=== PATIENT | female | born 1945 | race Caucasian/White ===

== ENCOUNTER → 2018-01-06 | Outpatient (CLI) | payer MEDICARE, BC ==
--- NOTE | 2018-01-06 16:24 | NM ---
EXAMINATION TYPE: NM bone scan whole body DATE OF EXAM: 01/06/2018 COMPARISON: Correlation CT 08/14/2017 HISTORY: 72-year-old female disorder of bone and specified, lumbar pain for 4 to 5 years. Osteoarthri tis in both hands and lumbar spine. Previous bilateral hip and knee replacements. TECHNIQUE: Delayed whole-body scanning was performed following the injection of 25.1 mCi Tc 99m MDP. Images acquired 3 hours post injection. FINDINGS: Focal mild uptake at the mid sternum likely degenerative change at the sternomanubrial joint. There i s scattered degenerative change seen in the upper and mid thoracic spine on the posterior views and a lso prominent within the upper lumbar spine and posteriorly at L4-L5. Photopenic defects related to bilateral hip replacements as well as bilateral knee replacements. There is mild uptake about the patient's knee replacements that can be correlated with radiographs to exclude any loosening. Focal intense activity along the right mid to hindfoot. Degenerative tracer activity at the right greater than left shoulder. IMPRESSION: 1. Focal uptake mid sternum likely degenerative activity at the sternomanubrial joint. 2. Additional degenerative activity at the right greater the left shoulder, upper and mid thoracic sp ine, upper lumbar spine, and the L4-L5 facet joints. 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 Note that Baastrup's disease may be a potential source of pain for the patient. 3. Focal intense activity right mid to hindfoot likely degenerative versus posttraumatic. Clinically correlate. 4. Mild uptake around the patient's bilateral knee replacements. This is nonspecific and can be corre lated with radiographs to exclude any signs of loosening.
== END | disposition home or self-care (01) ==
LOC: RADNMMAIN 10:10
PROVIDERS: ATTEND Radiology Radiation Oncology
DX: M47.814 Spondylosis without myelopathy or radiculopathy, thoracic region (principal); M47.816 Spondylosis without myelopathy or radiculopathy, lumbar region; M48.20 Kissing spine, site unspecified; R93.7 Abnormal findings on diagnostic imaging of other parts of musculoskeletal system; Z96.653 Presence of artificial knee joint, bilateral
CPT/HCPCS: 78306; A9503

== ENCOUNTER 2023-01-26 23:58 | Observation (INO) | payer MEDICARE, OTHER ==
--- NOTE | 2023-01-27 00:49 | CT ---
EXAM: CT Head Without Intravenous Contrast CLINICAL HISTORY: ITS.REASON CT Reason: trauma TECHNIQUE: Axial computed tomography images of the head/brain without intravenous contrast. CTDI is 45.285 mGy and DLP is 1079.5 mGy-cm. This CT exam was performed using one or more of the following dose reduction techniques: automated exposure control, adjustment of the mA and/or kV according to patient size, and/or use of iterative reconstruction technique. COMPARISON: CT Head dated 06/29/15 FINDINGS: Brain: Mild volume loss with prominent ventricles and sulci. Mild periventricular and subcortical white matter hypodensity notably in the left centrum semiovale, similar to the prior. Likely reflects chronic small vessel disease. No hemorrhage. Ventricles: See above. Bones/joints: Unremarkable. No acute fracture. Soft tissues: Left parietal scalp swelling and hematoma. Sinuses: Unremarkable as visualized. No acute sinusitis. Mastoid air cells: Unremarkable as visualized. No mastoid effusion. Orbits: Interval bilateral intraocular lens replacement. IMPRESSION: 1. No evidence of acute intracranial abnormality or skull fracture. 2. Left parietal scalp swelling and hematoma. EXAM: CT Cervical Spine Without Intravenous Contrast CLINICAL HISTORY: ITS.REASON CT Reason: trauma TECHNIQUE: Axial computed tomography images of the cervical spine without intravenous contrast. CTDI is 19.285 mGy and DLP is 546.8 mGy-cm. This CT exam was performed using one or more of the following dose reduction techniques: automated exposure control, adjustment of the mA and/or kV according to patient size, and/or use of iterative reconstruction technique. COMPARISON: CT Cervical Spine dated 06/29/15 FINDINGS: Vertebrae: Unremarkable. No acute fracture. Discs/spinal canal/neural foramina: Degenerative changes, similar/mildly progressed. Varying degrees of mild to moderate central canal stenosis. Severe left C4-5 foraminal stenosis. Varying degrees of mild to moderate foraminal stenoses at other levels. Soft tissues: Unremarkable. IMPRESSION: No evidence of acute fracture or malalignment.
--- NOTE | 2023-01-27 02:01 | ED ---
General Adult HPI - General Chief complaint: Fall Stated complaint: Fall Time Seen by Provider: 01/27/23 00:08 Source: patient, family, EMS, RN notes reviewed, old records reviewed Mode of arrival: EMS - History of Present Illness Initial comments: 77-year-old female presents status post fall with occipital head trauma. No loss conscious. No anticoagulation. History is obtained from the patient. Patient does report increased lower extremity weakness which has been progres sive. She has been followed at wound care for chronic lower extremity wounds. No fever. No chest pain. She has had a cough and wheezing for the past 3 weeks. - Related Data Home Medications Medication Instructions Recorded Confirmed No Known Home Medications 06/29/15 06/29/15 Allergies Allergy/AdvReac Type Severity Reaction Status Date / Time No Known Allergies Allergy Verified 01/27/23 00:03 Review of Systems ROS Statement: Those systems with pertinent positive or pertinent negative responses have been documented in the HPI. ROS Other: All systems not noted in ROS Statement are negative. Past Medical History Past Medical History: No Reported History Additional Past Medical History / Comment(s): lower leg edema History of Any Multi-Drug Resistant Organisms: None Reported Past Surgical History: Appendectomy Past Psychological History: No Psychological Hx Reported Smoking Status: Never smoker Past Alcohol Use History: None Reported Past Drug Use History: None Reported General Exam General appearance: alert, in no apparent distress Head exam: Present: normocephalic, other (Occipital hematoma and small abrasion) Eye exam: Present: normal appearance, PERRL ENT exam: Present: normal exam Neck exam: Present: normal inspection. Absent: tenderness, meningismus Respiratory exam: Present: wheezes. Absent: respiratory distress, chest wall tenderness Cardiovascular Exam: Present: regular rate, normal rhythm GI/Abdominal exam: Present: soft. Absent: distended, tenderness, guarding Extremities exam: Present: pedal edema Neurological exam: Present: alert, oriented X3, CN II-XII intact Psychiatric exam: Present: normal affect, normal mood Course Vital Signs 01/27/23 01/27/23 00:00 02:21 Temperature 98 F Pulse Rate 90 86 Respiratory 17 18 Rate Blood Pressure 138/58 114/54 O2 Sat by Pulse 99 97 Oximetry Medical Decision Making - Medical Decision Making Was pt. sent in by a medical professional or institution (, PA, RETAIL SUPERVISOR, urgent care, hospital, or penitentiary...) When possible be specific @ -No Did you speak to anyone other than the patient for history (EMS, parent, family, police, friend...)? What history was obtained from this source @ Patient's daughter and son-in-law, paramedics Did you review nursing and triage notes (agree or disagree)? Why? @ -I reviewed and agree with nursing and triage notes Were old charts reviewed (outside hosp., previous admission, EMS record, old EKG, old radiological studies, urgent care reports/EKG's, penitentiary records)? Report findings @ -No old charts were reviewed Differential Diagnosis (chest pain, altered mental status, abdominal pain women, abdominal pain men, vaginal bleeding, weakness, fever, dyspnea, syncope, headache, dizziness, GI bleed, back pain, seizure, CVA, palpatations, mental health, musculoskeletal)? @ Differential Weakness: Hypoglycemia, shock, sepsis, hyponatremia, anemia, infection, VA, ETOH, adverse medicine reaction, overdose, stroke, this is not meant to be an all-inclusive list. EKG interpreted by me (3pts min.). @ Sinus rhythm, rate of 92, NH interval 185, QRS duration 85, QTC 390 X-rays interpreted by me (1pt min.). @ -Negative for pneumothorax, no focal pneumonia CT interpreted by me (1pt min.). @ CT brain and C-spine, negative for traumatic injury reviewed by myself U/S interpreted by me (1pt. min.). @ -None done What testing was considered but not performed or refused? (CT, X-rays, U/S, labs)? Why? @ -None What meds were considered but not given or refused? Why? @ -None Did you discuss the management of the patient with other professionals (professionals i.e. , PA, RETAIL SUPERVISOR, lab, RT, psych nurse, mental health social worker, salt washer, teacher, information security officer, outpatient case manager)? Give summary @ -Dr. Anderson Was smoking cessation discussed for >3mins.? @ -No Was critical care preformed (if so, how long)? @ -No Were there social determinants of health that impacted care today? How? (Homelessness, low income, unemployed, alcoholism, drug addiction, transportation, low edu. Level, literacy, decrease access to med. care, [facility], rehab)? @ -No Was there de-escalation of care discussed even if they declined (Discuss DNR or withdrawal of care, Hospice)? DNR status @ -No What co-morbidities impacted this encounter? (DM, HTN, Smoking, COPD, CAD, Cancer, CVA, ARF, Chemo, Hep., AIDS, mental health diagnosis, sleep apnea, morbid obesity)? @ -None Was patient admitted / discharged? Hospital course, mention meds given and route, prescriptions, significant lab abnormalities, going to OR and other pertinent info. @ 77-year-old female with increased lower extremity weakness which has been progressive over time she also has had cough and wheezing for the past several weeks. She had a fall with head trauma with no loss consciousness, no antic oagulation, head CT is negative for intracranial hemorrhage or mass effect. Chest x-ray negative for focal pneumonia. She has a leukocytosis at 17.5, hemoglobin of 10.0 with no prior for comparison. Troponin and BNP are negative, viral panel is negative. Given the elevated white blood cell count I do suspect occult pneumonia, will be treated with IV antibiotics. She will be admitted for IV fluids and treatment of pneumonia with bronchospasm. Undiagnosed new problem with uncertain prognosis? @ -No Drug Therapy requiring intensive monitoring for toxicity (Heparin, Nitro, Insulin, Cardizem)? @ -No Were any procedures done? @ -No Diagnosis/symptom? @ Pneumonia, bronchospasm, dehydration Acute, or Chronic, or Acute on Chronic? @ Acute Uncomplicated (without systemic symptoms) or Complicated (systemic symptoms)? @ -Complicated Side effects of treatment? @ -No Exacerbation, Progression, or Severe Exacerbation? @ -No Poses a threat to life or bodily function? How? (Chest pain, USA, VA, pneumonia, PE, COPD, DKA, ARF, appy, cholecystitis, CVA, Diverticulitis, Homicidal, Suicidal, threat to staff... and all critical care pts) @ -Yes, aggressive dyspnea, hypoxia, pneumonia with sepsis - Lab Data Result diagrams: 01/27/23 01:32 01/27/23 01:32 Lab Results 01/27/23 01/27/23 01/27/23 Range/Units 01:32 01:32 01:32 WBC 17.5 H (3.8-10.6) k/uL RBC 3.38 L (3.80-5.40) m/uL Hgb 10.0 L (11.4-16.0) gm/dL Hct 31.3 L (34.0-46.0) % MCV 92.6 (80.0-100.0) fL MCH 29.7 (25.0-35.0) pg MCHC 32.1 (31.0-37.0) g/dL RDW 14.7 (11.5-15.5) % Plt Count 263 (150-450) k/uL MPV 8.0 Neutrophils % 92 % Lymphocytes % 5 % Monocytes % 2 % Eosinophils % 0 % Basophils % 0 % Neutrophils # 16.1 H (1.3-7.7) k/uL Lymphocytes # 0.8 L (1.0-4.8) k/uL Monocytes # 0.3 (0-1.0) k/uL Eosinophils # 0.0 (0-0.7) k/uL Basophils # 0.0 (0-0.2) k/uL Sodium 131 L (137-145) mmol/L Potassium 5.2 H (3.5-5.1) mmol/L Chloride 103 (98-107) mmol/L Carbon Dioxide 21 L (22-30) mmol/L Anion Gap 7 mmol/L BUN 37 H (7-17) mg/dL Creatinine 0.98 (0.52-1.04) mg/dL Est GFR (CKD-EPI)AfAm 64 (>60 ml/min/1.73 sqM) Est GFR (CKD-EPI)NonAf 55 (>60 ml/min/1.73 sqM) Glucose 93 (74-99) mg/dL Plasma Lactic Acid Shailesh 0.9 (0.7-2.0) mmol/L Calcium 8.4 (8.4-10.2) mg/dL Total Bilirubin 0.7 (0.2-1.3) mg/dL AST 32 (14-36) U/L ALT 31 (4-34) U/L Alkaline Phosphatase 173 H (38-126) U/L Troponin I (0.000-0.034) ng/mL NT-Pro-B Natriuret Pep pg/mL Total Protein 6.2 L (6.3-8.2) g/dL Albumin 3.0 L (3.5-5.0) g/dL Influenza Type A (PCR) (Not Detectd) Influenza Type B (PCR) (Not Detectd) RSV (PCR) (Not Detectd) SARS-CoV-2 (PCR) (Not Detectd) 01/27/23 01/27/23 01/27/23 Range/Units 01:32 01:32 01:32 WBC (3.8-10.6) k/uL RBC (3.80-5.40) m/uL Hgb (11.4-16.0) gm/dL Hct (34.0-46.0) % MCV (80.0-100.0) fL MCH (25.0-35.0) pg MCHC (31.0-37.0) g/dL RDW (11.5-15.5) % Plt Count (150-450) k/uL MPV Neutrophils % % Lymphocytes % % Monocytes % % Eosinophils % % Basophils % % Neutrophils # (1.3-7.7) k/uL Lymphocytes # (1.0-4.8) k/uL Monocytes # (0-1.0) k/uL Eosinophils # (0-0.7) k/uL Basophils # (0-0.2) k/uL Sodium (137-145) mmol/L Potassium (3.5-5.1) mmol/L Chloride (98-107) mmol/L Carbon Dioxide (22-30) mmol/L Anion Gap mmol/L BUN (7-17) mg/dL Creatinine (0.52-1.04) mg/dL Est GFR (CKD-EPI)AfAm (>60 ml/min/1.73 sqM) Est GFR (CKD-EPI)NonAf (>60 ml/min/1.73 sqM) Glucose (74-99) mg/dL Plasma Lactic Acid Shailesh (0.7-2.0) mmol/L Calcium (8.4-10.2) mg/dL Total Bilirubin (0.2-1.3) mg/dL AST (14-36) U/L ALT (4-34) U/L Alkaline Phosphatase (38-126) U/L Troponin I <0.012 (0.000-0.034) ng/mL NT-Pro-B Natriuret Pep 1090 pg/mL Total Protein (6.3-8.2) g/dL Albumin (3.5-5.0) g/dL Influenza Type A (PCR) Not Detected (Not Detectd) Influenza Type B (PCR) Not Detected (Not Detectd) RSV (PCR) Not Detected (Not Detectd) SARS-CoV-2 (PCR) Not Detected (Not Detectd) Disposition Clinical Impression: Pneumonia, Bronchospasm, Dehydration, Fall Disposition: HOME SELF-CARE Condition: Stable Is patient prescribed a controlled substance at d/c from ED?: No Referrals: Nonstaff,Physician [Primary Care Provider] - 1-2 days Time of Disposition: 03:04
[2023-01-27 02:05] LABS: Basophils % (A) 0 %; Eosinophils % (A) 0 %; HCT 31.3 % (34.0-46.0); Lymphocytes # (A) 0.8 k/uL (1.0-4.8); Lymphocytes % (A) 5 %; MCH 29.7 pg (25.0-35.0); MCHC 32.1 g/dL (31.0-37.0); MCV 92.6 fL (80.0-100.0); Monocytes # (A) 0.3 k/uL (0-1.0); Monocytes % (A) 2 %; Neutrophils # (A) 16.1 k/uL (1.3-7.7); Neutrophils % (A) 92 %; Platelet Count 263 k/uL (150-450); RBC 3.38 m/uL (3.80-5.40); RDW 14.7 % (11.5-15.5); WBC 17.5 k/uL (3.8-10.6)
[2023-01-27 02:08] LABS: Calcium 8.4 mg/dL (8.4-10.2); Potassium 5.2 mmol/L (3.5-5.1); Total Bilirubin 0.7 mg/dL (0.2-1.3); Total Protein 6.2 g/dL (6.3-8.2)
--- NOTE | 2023-01-27 02:11 | XR ---
EXAM: XR Chest, 1 View CLINICAL HISTORY: ITS.REASON XR Reason: difficulty breathing TECHNIQUE: Frontal view of the chest. COMPARISON: No relevant prior studies available. FINDINGS: Lungs: Unremarkable. No consolidation. Pleural space: Unremarkable. No pneumothorax. Heart: Unremarkable. No cardiomegaly. Mediastinum: Unremarkable. Bones/joints: Unremarkable. IMPRESSION: No evidence of acute cardiopulmonary disease.
[2023-01-27 02:40] LABS: INR 1.1 (<1.2); Partial Thromboplastin Time 24.1 sec (22.0-30.0)
[2023-01-27] MEDS ORDERED: AZITHROMYCIN 500 MG in SODIUM CHLORIDE 0.9% 250 ML IVPB STA (02:58)
[2023-01-27] MEDS ORDERED: ALBUTEROL NEBULIZED 2.5 MG/3 ML INHALATION STA (02:58)
[2023-01-27] MEDS ORDERED: NALOXONE 0.4 MG/ML 1 ML VIAL IV PRN (02:59)
[2023-01-27] MEDS ORDERED: ACETAMINOPHEN TAB 325 MG TAB PO PRN (02:59)
[2023-01-27] MEDS: SODIUM CHLORIDE 0.9% 1,000 ML IV SCH ×2 (03:45→21:28)
[2023-01-27] MEDS ORDERED: methylPREDNISolone SOD SUCCI 125 MG/2 ML VIAL IV SCH (08:00)
[2023-01-27] MEDS: ASPIRIN 81 MG PO SCH (12:57)
[2023-01-27] MEDS: BRIMONIDINE TARTRATE 0.2% DROPS 5 ML BTL RIGHT EYE SCH ×2 (12:59→21:54)
[2023-01-27] MEDS: TIMOLOL 0.5% OPHTH DROPS 5 ML BTL BOTH EYES SCH ×3 (12:59→21:57)
[2023-01-27] MEDS: FLUOROMETHOLONE 0.1% OPHTH DROPS 5 ML BTL BOTH EYES SCH ×2 (13:00→21:56)
[2023-01-27] MEDS ORDERED: LACTULOSE 20 GM/30 ML CUP PO PRN (13:12)
[2023-01-27] MEDS ORDERED: ONDANSETRON 4 MG/2 ML VIAL IVP PRN (13:12)
[2023-01-27] MEDS ORDERED: CALCIUM CARBONATE 500 MG CHEWABLE PO PRN (13:12)
[2023-01-27] MEDS ORDERED: MELATONIN 3 MG TABLET PO PRN (13:12)
[2023-01-27] MEDS ORDERED: LORazepam 0.5 MG TAB PO PRN (13:12)
--- NOTE | 2023-01-27 15:17 | P.HPIM ---
History of Present Illness H&P Date: 01/27/23 Chief Complaint: Fall This is a pleasant 77-year-old patient who follows with Dr. Isaiah Bunch. Chronic stable medical conditions include osteoporosis, lower extremity venous ulcers, urinary incontinence, obesity. Since a prior surgery of hip and both knees patient has been somewhat unsteady gait. Does use a walker. Some trouble walking. At home patient is try to get that the stairs had taken 2 steps when she could not make them third step. She fell backwards hitting the back of her head on the door. Did not pass out. This was a mechanical fall. No other pre cipitating factor. X-ray of the skull ruled out a fracture. Had a hematoma. Patient has a lower extremity venous ulcers being followed by Dr. Lazaro. No chest pain or palpitation. No cough or short of breath. No fever no chills. Review of systems: GEN.: Tired EYES: None HEENT: As above NECK: None RESPIRATORY: None CARDIOVASCULAR: None GASTROINTESTINAL: None GENITOURINARY: URI MUSCULOSKELETAL: Joint pains LYMPHATICS: None HEMATOLOGICAL: None PSYCHIATRY: None NEUROLOGICAL: Gait dysfunction Past medical history to include: Osteoporosis, urinary incontinence, obesity, lower extremity venous ulcers, chronic kidney dysfunction uses a walker Social history: Lives alone. Uses a walker. No smoking or alcohol Physical examination: VITAL SIGNS: 98, 90, 17, 138/58, 99% on room air GENERAL: BMI 39, declining but awake but in distress. EYES: Pupils equal. Conjunctiva normal. HEENT: External appearance of nose and ears normal, oral cavity grossly normal posterior scalp hematoma.. NECK: JVD not raised; masses not palpable. HEART: First and second heart sounds are normal; some edema. LUNGS: Respiratory rate normal; decreased breath sounds. ABDOMEN: Soft, nontender, liver spleen not palpable, no masses palpable. PSYCH: Alert and oriented x3; mood and affect normal. MUSCULOSKELETAL:No Clubbing/cyanosis;muscles-grossly intact. OA. DERMATOLOGICAL: Dressing lower extremity. NEUROLOGICAL: Cranial nerves grossly intact; no facial asymmetry, power and sensation grossly intact. LYMPHATICS: No lymph nodes palpable in the axilla and neck INVESTIGATIONS, reviewed in the clinical context: White count 17.5 hemoglobin 10 platelets 263 sodium 131 potassium 5.2 BUN 37 creatinine 0.98 creatinine 0.98 Influenza type A, B, RSV, COVID-19: Not detected EKG tracing personally reviewed by me-normal sinus rhythm Chest x-ray film personally reviewed by me-unremarkable Computed tomography scan had cervical spine: Posterior scalp hematoma Assessment and plan: -Fall from patient losing her balance with underlying baseline chronic unsteady gait from prior knee and hip surgery. No other precipitating cause. 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 Uses a walker at baseline. PTOT -Chronic bilateral lower extremity venous ulcers. Wound care outpatient with Dr. Lazaro. Consult Dr. Lazaro- -Obesity BMI 39 Weight loss measures -Chronic glaucoma Continue eyedrops -Discussed with patient. Consult PTOT. Consult Dr. Lazaro. IV fluids. Repeat labs in the morning. Past Medical History Past Medical History: No Reported History Additional Past Medical History / Comment(s): lower leg edema History of Any Multi-Drug Resistant Organisms: None Reported Past Surgical History: Appendectomy Past Psychological History: No Psychological Hx Reported Smoking Status: Never smoker Past Alcohol Use History: None Reported Past Drug Use History: None Reported Medications and Allergies Home Medications Medication Instructions Recorded Confirmed Type Aspirin EC [Ecotrin Low Dose] 81 mg PO DAILY 01/27/23 01/27/23 History Brimonidine Tartrate [Alphagan P 1 drop RIGHT EYE BID 01/27/23 01/27/23 History 0.2% Ophth Soln] Fluorometholone 0.1% Ophth Megan 1 drop BOTH EYES BID 01/27/23 01/27/23 History [Fml] Latanoprost Ophth [Xalatan 0.005%] 1 drop BOTH EYES HS 01/27/23 01/27/23 History Potassium Chloride [Klor-Con M10] 10 meq PO DAILY 01/27/23 01/27/23 History Timolol 0.5% Ophth Soln [Timoptic 1 drop BOTH EYES TID 01/27/23 01/27/23 History 0.5% Ophth Soln] Allergies Allergy/AdvReac Type Severity Reaction Status Date / Time No Known Allergies Allergy Verified 01/27/23 07:47 Physical Exam Vitals: Vital Signs Temp Pulse Resp BP Pulse Ox 01/27/23 06:55 92 18 123/56 96 01/27/23 05:24 88 94 L 01/27/23 04:23 96 18 96 01/27/23 03:52 88 01/27/23 03:44 85 01/27/23 02:21 86 18 114/54 97 01/27/23 00:00 98 F 90 17 138/58 99 Intake and Output 01/26/23 01/27/23 01/27/23 22:59 06:59 14:59 Other: Weight 99.79 kg Results CBC & Chem 7: 01/27/23 01:32 01/27/23 01:32 Labs: Abnormal Lab Results - Last 24 Hours (Table) 01/27/23 01/27/23 Range/Units 01:32 01:32 WBC 17.5 H (3.8-10.6) k/uL RBC 3.38 L (3.80-5.40) m/uL Hgb 10.0 L (11.4-16.0) gm/dL Hct 31.3 L (34.0-46.0) % Neutrophils # 16.1 H (1.3-7.7) k/uL Lymphocytes # 0.8 L (1.0-4.8) k/uL Sodium 131 L (137-145) mmol/L Potassium 5.2 H (3.5-5.1) mmol/L Carbon Dioxide 21 L (22-30) mmol/L BUN 37 H (7-17) mg/dL Alkaline Phosphatase 173 H (38-126) U/L Total Protein 6.2 L (6.3-8.2) g/dL Albumin 3.0 L (3.5-5.0) g/dL
[2023-01-27] MEDS: LATANOPROST 0.005% OPHTH DROPS 2.5 ML BTL BOTH EYES SCH (21:56)
[2023-01-28 07:06] LABS: African American GFR (CKD) 63 (>60 ml/min/1.73 sqM); Anion Gap 6 mmol/L; Blood Urea Nitrogen 31 mg/dL (7-17); Calcium 8.2 mg/dL (8.4-10.2); Carbon Dioxide 23 mmol/L (22-30); Chloride 107 mmol/L (98-107); Glucose 135 mg/dL (74-99); Non-African American GFR(CKD) 55 (>60 ml/min/1.73 sqM); Potassium 4.9 mmol/L (3.5-5.1); Sodium 136 mmol/L (137-145)
[2023-01-28] MEDS: ASPIRIN 81 MG PO SCH (08:29)
[2023-01-28] MEDS: BRIMONIDINE TARTRATE 0.2% DROPS 5 ML BTL RIGHT EYE SCH ×2 (09:15→20:44)
[2023-01-28] MEDS: FLUOROMETHOLONE 0.1% OPHTH DROPS 5 ML BTL BOTH EYES SCH ×2 (09:16→20:45)
[2023-01-28] MEDS: TIMOLOL 0.5% OPHTH DROPS 5 ML BTL BOTH EYES SCH ×3 (09:16→20:45)
[2023-01-28] MEDS: SODIUM CHLORIDE 0.9% 1,000 ML IV SCH (09:16)
--- NOTE | 2023-01-28 16:26 | P.GSCN ---
History of Present Illness History of present illness: Patient is known to me from from the wound clinic this patient has a venous stasis ulcer both lower extremity we've been treating with local wound care and compression wrap. Patient had history of fall backward and the excess shows a hematoma no fracture noted. On examination Neck is supple no bruit appreciated Chest is clear good and both lungs first and second sound present Abdomen soft nontender Vascular femorals are 1+ bilateral neurologically patient is stable patient has a bilateral lower extremity extremity venous stasis ulcer today we have changed the dressing using Aquacel silver and compression wrap if patient goes home we will follow up in the wound clinic at [facility] Past Medical History Past Medical History: Osteoarthritis (OA), Pneumonia, Vascular Disorder Additional Past Medical History / Comment(s): lower leg edema History of Any Multi-Drug Resistant Organisms: None Reported Past Surgical History: Appendectomy, Joint Replacement, Tubal Ligation Additional Past Surgical History / Comment(s): madeline hip and knees total replacement; cat sx with lens implants both eyes Past Anesthesia/Blood Transfusion Reactions: No Reported Reaction Past Psychological History: No Psychological Hx Reported Smoking Status: Never smoker Past Alcohol Use History: None Reported Past Drug Use History: None Reported Medications and Allergies Home Medications Medication Instructions Recorded Confirmed Type Aspirin EC [Ecotrin Low Dose] 81 mg PO DAILY 01/27/23 01/27/23 History Brimonidine Tartrate [Alphagan P 1 drop RIGHT EYE BID 01/27/23 01/27/23 History 0.2% Ophth Soln] Fluorometholone 0.1% Ophth Megan 1 drop BOTH EYES BID 01/27/23 01/27/23 History [Fml] Latanoprost Ophth [Xalatan 0.005%] 1 drop BOTH EYES HS 01/27/23 01/27/23 History Potassium Chloride [Klor-Con M10] 10 meq PO DAILY 01/27/23 01/27/23 History Timolol 0.5% Ophth Soln [Timoptic 1 drop BOTH EYES TID 01/27/23 01/27/23 History 0.5% Ophth Soln] Allergies Allergy/AdvReac Type Severity Reaction Status Date / Time No Known Allergies Allergy Verified 01/27/23 07:47 Surgical - Exam Vital Signs Temp Pulse Resp BP Pulse Ox 98 F 90 17 138/58 99 01/27/23 00:00 01/27/23 00:00 01/27/23 00:00 01/27/23 00:00 01/27/23 00:00 Results - Labs 01/27/23 01:32 01/28/23 06:24 Abnormal Lab Results - Last 24 Hours (Table) 01/28/23 Range/Units 06:24 Sodium 136 L (137-145) mmol/L BUN 31 H (7-17) mg/dL Glucose 135 H (74-99) mg/dL Calcium 8.2 L (8.4-10.2) mg/dL Diabetes panel 01/28/23 Range/Units 06:24 Sodium 136 L (137-145) mmol/L Potassium 4.9 (3.5-5.1) mmol/L Chloride 107 (98-107) mmol/L Carbon Dioxide 23 (22-30) mmol/L BUN 31 H (7-17) mg/dL Creatinine 0.99 (0.52-1.04) mg/dL Glucose 135 H (74-99) mg/dL Calcium 8.2 L (8.4-10.2) mg/dL Calcium panel 01/28/23 Range/Units 06:24 Calcium 8.2 L (8.4-10.2) mg/dL Pituitary panel 01/28/23 Range/Units 06:24 Sodium 136 L (137-145) mmol/L Potassium 4.9 (3.5-5.1) mmol/L Chloride 107 (98-107) mmol/L Carbon Dioxide 23 (22-30) mmol/L BUN 31 H (7-17) mg/dL Creatinine 0.99 (0.52-1.04) mg/dL Glucose 135 H (74-99) mg/dL Calcium 8.2 L (8.4-10.2) mg/dL Adrenal panel 01/28/23 Range/Units 06:24 Sodium 136 L (137-145) mmol/L Potassium 4.9 (3.5-5.1) mmol/L Chloride 107 (98-107) mmol/L Carbon Dioxide 23 (22-30) mmol/L BUN 31 H (7-17) mg/dL Creatinine 0.99 (0.52-1.04) mg/dL Glucose 135 H (74-99) mg/dL Calcium 8.2 L (8.4-10.2) mg/dL
--- NOTE | 2023-01-28 20:22 | P.PN ---
Progress Note - Text Progress Note Date: 01/28/23 Chief Complaint: Fall This is a pleasant 77-year-old patient who follows with Dr. Isaiah Bunch. Chronic stable medical conditions include osteoporosis, lower extremity venous ulcers, urinary incontinence, obesity. Since a prior surgery of hip and both knees patient has been somewhat unsteady gait. Does use a walker. Some trouble walking. At home patient is try to get that the stairs had taken 2 steps when she could not make them third step. She fell backwards hitting the back of her head on the door. Did not pass out. This was a mechanical fall. No other precipitating factor. X-ray of the skull ruled out a fracture. Had a hematoma. Patient has a lower extremity venous ulcers being followed by Dr. Lazaro. No chest pain or palpitation. No cough or short of breath. No fever no chills. January 28: Patient doing well. Sitting up. I discharged the patient 11:50 AM today. In the evening I called the floor to check if patient had left. I called Dr. Lazaro in the evening to check but he said he'd already cleared the patient to be discharged. late in the evening hence patient be discharged tomorrow. Active Medications Acetaminophen (Acetaminophen Tab 325 Mg Tab) 650 mg PO Q6HR PRN PRN Reason: Mild Pain or Fever > 100.5 Aspirin (Aspirin 81 Mg) 81 mg PO DAILY [facility] Last Admin: 01/28/23 08:29 Dose: 81 mg Brimonidine Tartrate (Brimonidine Tartrate 0.2% Drops 5 Ml Btl) 1 drops RIGHT EYE BID [facility] Last Admin: 01/28/23 09:15 Dose: 1 drops Calcium Carbonate/Glycine (Calcium Carbonate 500 Mg Chewable) 1,000 mg PO Q4HR PRN PRN Reason: Dyspepsia Fluorometholone (Fluorometholone 0.1% Ophth Drops 5 Ml Btl) 1 drops BOTH EYES BID [facility] Last Admin: 01/28/23 09:16 Dose: 1 drops Sodium Chloride (Saline 0.9%) 1,000 mls @ 75 mls/hr IV .[id number] [facility] Last Admin: 01/28/23 09:16 Dose: 75 mls/hr Lactulose (Lactulose 20 Gm/30 Ml Cup) 20 gm PO DAILY PRN PRN Reason: Constipation Latanoprost (Latanoprost 0.005% Ophth Drops 2.5 Ml Btl) 1 drops BOTH EYES HS [facility] Last Admin: 01/27/23 21:56 Dose: 1 drops Lorazepam (Lorazepam 0.5 Mg Tab) 0.5 mg PO Q6HR PRN PRN Reason: Anxiety Melatonin (Melatonin 3 Mg Tablet) 3 mg PO HS PRN PRN Reason: Insomnia Naloxone HCl (Naloxone 0.4 Mg/Ml 1 Ml Vial) 0.2 mg IV Q2M PRN PRN Reason: Opioid Reversal Ondansetron HCl (Ondansetron 4 Mg/2 Ml Vial) 4 mg IVP Q8HR PRN PRN Reason: Nausea And Vomiting Timolol Maleate (Timolol 0.5% Ophth Drops 5 Ml Btl) 1 drops BOTH EYES TID [facility] Last Admin: 01/28/23 16:04 Dose: 1 drops Past medical history to include: Osteoporosis, urinary incontinence, obesity, lower extremity venous ulcers, chronic kidney dysfunction uses a walker Social history: Lives alone. Uses a walker. No smoking or alcohol Physical examination: VITAL SIGNS: 97.8, 78, 16, 147-68, 97% room air GENERAL: BMI 39, sitting up, comfortable EYES: Pupils equal. Conjunctiva normal. HEENT: External appearance of nose and ears normal, oral cavity grossly normal posterior scalp hematoma.. NECK: JVD not raised; masses not palpable. HEART: First and second heart sounds are normal; some edema. LUNGS: Respiratory rate normal; decreased breath sounds. ABDOMEN: Soft, nontender, liver spleen not palpable, no masses palpable. PSYCH: Alert and oriented x3; mood and affect normal. MUSCULOSKELETAL:No Clubbing/cyanosis;muscles-grossly intact. OA. DERMATOLOGICAL: Dressing lower extremity. INVESTIGATIONS, reviewed in the clinical context: January 28: Potassium 4.9 creatinine 0.99 White count 17.5 hemoglobin 10 platelets 263 sodium 131 potassium 5.2 BUN 37 creatinine 0.98 creatinine 0.98 Influenza type A, B, RSV, COVID-19: Not detected EKG tracing personally reviewed by me-normal sinus rhythm Chest x-ray film personally reviewed by me-unremarkable Computed tomography scan had cervical spine: Posterior scalp hematoma Assessment and plan: -Fall from patient losing her balance with underlying baseline chronic unsteady gait from prior knee and hip surgery. No other precipitating cause. 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 Uses a walker at baseline. PTOT-return home with homecare -Chronic bilateral lower extremity venous ulcers. Wound care outpatient with Dr. Lazaro. Dr. Lazaro carried out dressing changed today -Obesity BMI 39 Weight loss measures -Chronic glaucoma Continue eyedrops By PTOT. Patient to return home with home care.
[2023-01-28] MEDS: LATANOPROST 0.005% OPHTH DROPS 2.5 ML BTL BOTH EYES SCH (21:43)
[2023-01-29 02:14] VITALS: RESP 15
[2023-01-29] MEDS: SODIUM CHLORIDE 0.9% 1,000 ML IV SCH ×2 (02:39→13:44)
[2023-01-29] MEDS: ASPIRIN 81 MG PO SCH (09:14)
[2023-01-29] MEDS: BRIMONIDINE TARTRATE 0.2% DROPS 5 ML BTL RIGHT EYE SCH (09:15)
[2023-01-29] MEDS: TIMOLOL 0.5% OPHTH DROPS 5 ML BTL BOTH EYES SCH (09:16)
[2023-01-29] MEDS: FLUOROMETHOLONE 0.1% OPHTH DROPS 5 ML BTL BOTH EYES SCH (09:16)
[2023-01-29 13:59] VITALS: BP 112/53; PULSE 78; TEMP 97.4
--- NOTE | 2023-01-29 17:25 | P.DS ---
Providers Date of admission: 01/27/23 03:00 Expected date of discharge: 01/29/23 Attending physician: Asaf Anderson Consults: 01/27/23 12:49 Consult Physician Routine Consulting Provider: French Gusman Consult Reason/Comments: Miller LE ulcerations - known to you Do you want consulting provider notified?: Yes Primary care physician: Isaiah Bunch MD Hospital Course: Chief Complaint: Fall This is a pleasant 77-year-old patient who follows with Dr. Isaiah Bunch. Chronic stable medical conditions include osteoporosis, lower extremity venous ulcers, urinary incontinence, obesity. Since a prior surgery of hip and both knees patient has been somewhat unsteady gait. Does use a walker. Some trouble walking. At home patient is try to get that the stairs had taken 2 steps when she could not make them third step. She fell backwards hitting the back of her head on the door. Did not pass out. This was a mechanical fall. No other precipitating factor. X-ray of the skull ruled out a fracture. Had a hematoma. Patient has a lower extremity venous ulcers being followed by Dr. Lazaro. No chest pain or palpitation. No cough or short of breath. No fever no chills. January 28: Patient doing well. Sitting up. I discharged the patient 11:50 AM today. In the evening I called the floor to check if patient had left. I called Dr. Lazaro in the evening to check but he said he'd already cleared the patient to be discharged. late in the evening hence patient be discharged tomorrow. January 29: No new issues. Discussed with the patient. We'll follow with Dr. Lazaro for wound care. [place] home today. Home care. Past medical history to include: Osteoporosis, urinary incontinence, obesity, lower extremity venous ulcers, chronic kidney dysfunction uses a walker Social history: Lives alone. Uses a walker. No smoking or alcohol Physical examination: VITAL SIGNS: 98.8, 83, 18, 100/61, 95% on 3 L GENERAL: BMI 39, sitting up, comfortable EYES: Pupils equal. Conjunctiva normal. HEENT: External appearance of nose and ears normal, oral cavity grossly normal posterior scalp hematoma.. NECK: JVD not raised; masses not palpable. HEART: First and second heart sounds are normal; some edema. LUNGS: Respiratory rate normal; decreased breath sounds. ABDOMEN: Soft, nontender, liver spleen not palpable, no masses palpable. PSYCH: Alert and oriented x3; mood and affect normal. MUSCULOSKELETAL:No Clubbing/cyanosis;muscles-grossly intact. OA. DERMATOLOGICAL: Dressing lower extremity. INVESTIGATIONS, reviewed in the clinical context: January 28: Potassium 4.9 creatinine 0.99 White count 17.5 hemoglobin 10 platelets 263 sodium 131 potassium 5.2 BUN 37 creatinine 0.98 creatinine 0.98 Influenza type A, B, RSV, COVID-19: Not detected EKG tracing personally reviewed by me-normal sinus rhythm Chest x-ray film personally reviewed by me-unremarkable Computed tomography scan had cervical spine: Posterior scalp hematoma Assessment and plan: -Fall from patient losing her balance with underlying baseline chronic unsteady gait from prior knee and hip surgery. No other precipitating cause. 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 Uses a walker at baseline. PTOT-return home with homecare -Chronic bilateral lower extremity venous ulcers. Wound care outpatient with Dr. Lazaro. Dr. Lazaro carried out dressing changed -Obesity BMI 39 Weight loss measures -Chronic glaucoma Continue eyedrops Disposition: Home Plan - Discharge Summary Discharge Rx Participant: No New Discharge Prescriptions: Continue Brimonidine Tartrate [Alphagan P 0.2% Ophth Soln] 1 drop RIGHT EYE BID Latanoprost Ophth [Xalatan 0.005%] 1 drop BOTH EYES HS Timolol 0.5% Ophth Soln [Timoptic 0.5% Ophth Soln] 1 drop BOTH EYES TID Fluorometholone 0.1% Ophth Megan [Fml] 1 drop BOTH EYES BID Aspirin EC [Ecotrin Low Dose] 81 mg PO DAILY Potassium Chloride [Klor-Con M10] 10 meq PO DAILY Discharge Medication List Aspirin EC [Ecotrin Low Dose] 81 mg PO DAILY 01/27/23 [History] Brimonidine Tartrate [Alphagan P 0.2% Ophth Soln] 1 drop RIGHT EYE BID 01/27/23 [History] Fluorometholone 0.1% Ophth Megan [Fml] 1 drop BOTH EYES BID 01/27/23 [History] Latanoprost Ophth [Xalatan 0.005%] 1 drop BOTH EYES HS 01/27/23 [History] Potassium Chloride [Klor-Con M10] 10 meq PO DAILY 01/27/23 [History] Timolol 0.5% Ophth Soln [Timoptic 0.5% Ophth Soln] 1 drop BOTH EYES TID 01/27/23 [History] Follow up Appointment(s)/Referral(s): Isaiah Bunch MD [Primary Care Provider] - 1 Week (the office will call to set up the follow up appointment) [facility] [NON-STAFF] - 1 Week [facility] [NON-STAFF] - 1 Week Patient Instructions/Handouts: Weakness (DC) Activity/Diet/Wound Care/Special Instructions: dc after dressing change by dr gusman Per Dr. Gusman, follow up in wound clinic at [facility]
== END 2023-01-29 19:39 | disposition home or self-care (01) ==
LOC: EC 23:58 → INTOOBSV 01-27 03:00 → 5NMEDONC 01-27 03:00
PROVIDERS: ADMIT Hospitalist; ATTEND Hospitalist
DX: S00.03XA Contusion of scalp, initial encounter (principal); J18.9 Pneumonia, unspecified organism; E86.0 Dehydration; M81.0 Age-related osteoporosis without current pathological fracture; E66.9 Obesity, unspecified; I87.8 Other specified disorders of veins; H40.9 Unspecified glaucoma; M48.02 Spinal stenosis, cervical region; R26.2 Difficulty in walking, not elsewhere classified; Z20.822 Contact with and (suspected) exposure to COVID-19; Z60.2 Problems related to living alone; Z68.39 Body mass index [BMI] 39.0-39.9, adult; Z79.82 Long term (current) use of aspirin; Z96.643 Presence of artificial hip joint, bilateral; Z96.653 Presence of artificial knee joint, bilateral; Z98.42 Cataract extraction status, left eye; Z98.41 Cataract extraction status, right eye; Z96.1 Presence of intraocular lens; W18.30XA Fall on same level, unspecified, initial encounter
CPT/HCPCS: 96361; 96365; 96367; 96375; 99285; 36415; 94760; 93005; 97116; 97162; 97530; 97166; 83880; 80053; 80048; 83605; 84484; 85025; 85610; 85730; 87040; 87636; 71045; 72125; 70450; G0378 ×3; J2930; J0456; J0696

== ENCOUNTER 2023-07-08 12:08 | Inpatient (IN) | payer MEDICARE ==
[2023-07-08] MEDS ORDERED: SODIUM CHLORIDE 0.9% 500 ML 500 ML IV STA (12:30)
--- NOTE | 2023-07-08 12:35 | ED ---
General Adult HPI - General Chief complaint: Weakness Stated complaint: Weakness, dizziness Time Seen by Provider: 07/08/23 12:30 Source: patient, RN notes reviewed, old records reviewed Mode of arrival: ambulatory Limitations: no limitations - History of Present Illness Initial comments: This is a 78-year-old female who presents emergency department via ambulance. Patient comes in complaining that she has been dizzy for the last 3 days and she's unable to stand because she's weak in both of her legs. Patient states she's also lost her appetite over the last 3 days. Patient denies any headache patient denies any focal weakness or numbness. Patient denies any chest pain difficulty breathing shortest breath per patient denies any abdominal pain. Patient denies any nausea vomiting diarrhea. Patient denies any palpitations. Patient denies dysuria hematuria urinary frequency. Patient denies any recent fever chills or cough. Patient states the dizziness is such that she needs to hold on anything she tries to stand up. - Related Data Home Medications Medication Instructions Recorded Confirmed Aspirin EC [Ecotrin Low Dose] 81 mg PO DAILY 01/27/23 07/08/23 Brimonidine Tartrate [Alphagan P 1 drop RIGHT EYE BID 01/27/23 07/08/23 0.2% Ophth Soln] Fluorometholone 0.1% Ophth Megan 1 drop BOTH EYES BID 01/27/23 07/08/23 [Fml] Latanoprost Ophth [Xalatan 0.005%] 1 drop BOTH EYES HS 01/27/23 07/08/23 Potassium Chloride [Klor-Con M10] 10 meq PO DAILY 01/27/23 07/08/23 Dorzolamide-Timol 2.23%/0.68% 1 drop BOTH EYES BID 07/08/23 07/08/23 [Cosopt] Furosemide [Lasix] 40 mg PO DAILY 07/08/23 07/08/23 Pantoprazole [Protonix] 40 mg PO DAILY 07/08/23 07/08/23 Allergies Allergy/AdvReac Type Severity Reaction Status Date / Time No Known Allergies Allergy Verified 07/08/23 12:33 Review of Systems ROS Statement: Those systems with pertinent positive or pertinent negative responses have been documented in the HPI. ROS Other: All systems not noted in ROS Statement are negative. Past Medical History Past Medical History: Osteoarthritis (OA), Pneumonia, Vascular Disorder Additional Past Medical History / Comment(s): lower leg edema History of Any Multi-Drug Resistant Organisms: None Reported Past Surgical History: Appendectomy, Joint Replacement, Tubal Ligation Additional Past Surgical History / Comment(s): madeline hip and knees total re placement; cat sx with lens implants both eyes Past Anesthesia/Blood Transfusion Reactions: No Reported Reaction Past Psychological History: No Psychological Hx Reported Smoking Status: Never smoker Past Alcohol Use History: None Reported Past Drug Use History: None Reported General Exam - General Exam Comments Initial Comments: GENERAL: Patient is well-developed and well-nourished. Patient is nontoxic and well- hydrated and is in mild distress. ENT: Neck is soft and supple. No significant lymphadenopathy is noted. Oropharynx is clear. Moist mucous membranes. Neck has full range of motion without eliciting any pain. EYES: The sclera were anicteric and conjunctiva were pink and moist. Extraocular movements were intact and pupils were equal round and reactive to light. Eyelids were unremarkable. PULMONARY: Unlabored respirations. Good breath sounds bilaterally. No audible rales rhonc hi or wheezing was noted. CARDIOVASCULAR: There is a regular rate and rhythm without any murmurs gallops or rubs. ABDOMEN: Soft and nontender with normal bowel sounds. SKIN: Skin is clear with no lesions or rashes and otherwise unremarkable. NEUROLOGIC: Patient is alert and oriented x3. Cranial nerves II through XII are grossly intact. Motor and sensory are also intact. Normal speech, volume and content. Symmetrical smile. Finger to nose testing is normal bilaterally MUSCULOSKELETAL: Normal extremities with adequate strength and full range of motion. LYMPHATICS: No significant lymphadenopathy is noted PSYCHIATRIC: Normal psychiatric evaluation. Limitations: no limitations Course Vital Signs 07/08/23 07/08/23 07/08/23 12:27 12:45 15:00 Temperature 90.9 F L Pulse Rate 53 L 80 Respiratory 18 18 Rate Blood Pressure 158/90 127/66 O2 Sat by Pulse 100 98 Oximetry 07/08/23 07/08/23 07/08/23 16:56 17:00 18:00 Temperature 94.5 F L 97.3 F L 97.3 F L Pulse Rate 81 96 94 Respiratory 16 18 18 Rate Blood Pressure 123/55 123/55 112/44 O2 Sat by Pulse 96 96 96 Oximetry 07/08/23 07/08/23 07/08/23 18:30 18:32 18:40 Temperature 97.5 F L Pulse Rate 95 92 96 Respiratory 18 18 18 Rate Blood Pressure 109/45 113/48 109/45 O2 Sat by Pulse 96 96 95 Oximetry 07/08/23 07/08/23 07/08/23 18:50 19:00 19:10 Temperature Pulse Rate 97 100 100 Respiratory 18 16 18 Rate Blood Pressure 109/45 109/45 110/49 O2 Sat by Pulse 95 94 L 94 L Oximetry 07/08/23 20:25 Temperature 101.3 F H Pulse Rate 110 H Respiratory 20 Rate Blood Pressure 116/46 O2 Sat by Pulse 92 L Oximetry Medical Decision Making - Medical Decision Making EKG is interpreted by myself. EKG shows sinus rhythm at 60 bpm IL interval is 242 QRS is 102 QT interval 420 QTC is 420. Patient's EKG shows no ST segment elevation or depression. Was pt. sent in by a medical professional or institution (, PA, [employer], urgent care, hospital, or senior living...) When possible be specific @ -No Did you speak to anyone other than the patient for history (EMS, parent, family, police, friend...)? What history was obtained from this source @ -No Did you review nursing and triage notes (agree or disagree)? Why? @ -I reviewed and agree with nursing and triage notes Were old charts reviewed (outside hosp., previous admission, EMS record, old EK G, old radiological studies, urgent care reports/EKG's, senior living records)? Report findings @ -I reviewed prior charts and labwork on this patient Differential Diagnosis (chest pain, altered mental status, abdominal pain women, abdominal pain men, vaginal bleeding, weakness, fever, dyspnea, syncope, headache, dizziness, GI bleed, back pain, seizure, CVA, palpatations, mental health, musculoskeletal)? @ -Differential Weakness: Hypoglycemia, shock, sepsis, hyponatremia, anemia, infection, MN, ETOH, adverse medicine reaction, overdose, stroke, this is not meant to be an all-inclusive list.Differential Altered Mental Status: Hypoglycemia, DKA, hypercapnia, ETOH, overdose, CO poisoning, trauma, myxedema coma, HTN encephalopathy, infection, encephalitis, psychosis, intercranial hemorrhage, hepatic encephalopathy, meningitis, CVA, this is not meant to be an all-inclusive list EKG interpreted by me (3pts min.). @ -As above X-rays interpreted by me (1pt min.). @ -X-ray shows no acute abnormality CT interpreted by me (1pt min.). @ -CT of the brain shows no acute abnormality U/S interpreted by me (1pt. min.). @ -None done What testing was considered but not performed or refused? (CT, X-rays, U/S, labs)? Why? @ -None What meds were considered but not given or refused? Why? @ -None Did you discuss the management of the patient with other professionals (professionals i.e. , PA, [employer], lab, RT, psych nurse, family welfare social work professor, crown and bridge technician, teacher, chief creative officer, welfare case worker)? Give summary @ -I spoke with [facility] and he agreed to admit the patient Was smoking cessation discussed for >3mins.? @ -No Was critical care preformed (if so, how long)? @ -No Were there social determinants of health that impacted care today? How? (Homelessness, low income, unemployed, alcoholism, drug addiction, transportation, low edu. Level, literacy, decrease access to med. care, long term, rehab)? @ -No Was there de-escalation of care discussed even if they declined (Discuss DNR or withdrawal of care, Hospice)? DNR status @ -No What co-morbidities impacted this encounter? (DM, HTN, Smoking, COPD, CAD, Cancer, CVA, ARF, Chemo, Hep., AIDS, mental health diagnosis, sleep apnea, morbid obesity)? @ -None Was patient admitted / discharged? Hospital course, mention meds given and route, prescriptions, significant lab abnormalities, going to OR and other pert inent info. @ -Patient was hypothermic so she was placed on a Blanketrol with a bear hugger . Patient also had a urinary tract infection. She was given Rocephin and it was diagnosed at 5:10 PM. I spoke with [facility] agreed to admit the patient I admitted the patient I wrote admitting orders Undiagnosed new problem with uncertain prognosis? @ -No Drug Therapy requiring intensive monitoring for toxicity (Heparin, Nitro, Insulin, Cardizem)? @ -No Were any procedures done? @ -No Diagnosis/symptom? @ -Hypothermic Acute, or Chronic, or Acute on Chronic? @ -Acute Uncomplicated (without systemic symptoms) or Complicated (systemic symptoms)? @ -Complicated Side effects of treatment? @ -No Exacerbation, Progression, or Severe Exacerbation? @ -No Poses a threat to life or bodily function? How? (Chest pain, USA, MN, pneumonia, PE, COPD, DKA, ARF, appy, cholecystitis, CVA, Diverticulitis, Homicidal, Suicidal, threat to staff... and all critical care pts) @ -Yes this could cause dysrhythmias and Diagnosis/symptom? @ -Urinary tract infection Acute, or Chronic, or Acute on Chronic? @ -Acute Uncomplicated (without systemic symptoms) or Complicated (systemic symptoms)? @ -Complicated Side effects of treatment? @ -none Exacerbation, Progression, or Severe Exacerbation] @ -no Poses a threat to life or bodily function? @ -no An EKG was done when the patient temperature went beyond normal because she was kept on the blanketrol and patient temperature 100.2. EKG was repeated and it was interpreted by myself showed sinus tachycardia 127 bpm IL interval 217 QRSs 83 Q-T intervals 270 QTC is 353. Patient's EKG shows no ST segment elevation or depression. - Lab Data Result diagrams: 07/08/23 12:34 07/08/23 12:34 Lab Results 07/08/23 07/08/23 07/08/23 Range/Units 12:34 12:34 12:34 WBC 4.1 (3.8-10.6) k/uL RBC 3.17 L (3.80-5.40) m/uL Hgb 9.2 L (11.4-16.0) gm/dL Hct 29.1 L (34.0-46.0) % MCV 91.8 (80.0-100.0) fL MCH 29.1 (25.0-35.0) pg MCHC 31.7 (31.0-37.0) g/dL RDW 19.4 H (11.5-15.5) % Plt Count 151 (150-450) k/uL MPV 9.6 Neutrophils % 76 % Lymphocytes % 14 % Monocytes % 6 % Eosinophils % 1 % Basophils % 0 % Neutrophils # 3.1 (1.3-7.7) k/uL Lymphocytes # 0.6 L (1.0-4.8) k/uL Monocytes # 0.3 (0-1.0) k/uL Eosinophils # 0.0 (0-0.7) k/uL Basophils # 0.0 (0-0.2) k/uL Hypochromasia Moderate Anisocytosis Slight Sodium 143 (137-145) mmol/L Potassium 6.0 H (3.5-5.1) mmol/L Chloride 118 H (98-107) mmol/L Carbon Dioxide 16 L (22-30) mmol/L Anion Gap 9 mmol/L BUN 34 H (7-17) mg/dL Creatinine 0.92 (0.52-1.04) mg/dL Est GFR (CKD-EPI)AfAm 69 (>60 ml/min/1.73 sqM) Est GFR (CKD-EPI)NonAf 60 (>60 ml/min/1.73 sqM) Glucose 80 (74-99) mg/dL Plasma Lactic Acid Shailesh (0.7-2.0) mmol/L Calcium 9.2 (8.4-10.2) mg/dL Magnesium 2.3 (1.6-2.3) mg/dL Total Bilirubin 0.4 (0.2-1.3) mg/dL AST 32 (14-36) U/L ALT 27 (4-34) U/L Alkaline Phosphatase 123 (38-126) U/L Troponin I (0.000-0.034) ng/mL Total Protein 6.9 (6.3-8.2) g/dL Albumin 3.2 L (3.5-5.0) g/dL TSH (0.465-4.680) mIU/L Urine Color Colorless Urine Appearance Clear (Clear) Urine pH 5.0 (5.0-8.0) Ur Specific [place] 1.019 (1.001-1.035) Urine Protein Negative (Negative) Urine Glucose (UA) Negative (Negative) Urine Ketones Negative (Negative) Urine Blood Negative (Negative) Urine Nitrite Positive H (Negative) Urine Bilirubin Negative (Negative) Urine Urobilinogen <2.0 (<2.0) mg/dL Ur Leukocyte Esterase Negative (Negative) Urine RBC 1 (0-5) /hpf Urine WBC 3 (0-5) /hpf Ur Squamous Epith Cells <1 (0-4) /hpf Urine Bacteria Many H (None) /hpf Hyaline Casts 3 H (0-2) /lpf Urine Mucus Rare H (None) /hpf 07/08/23 07/08/23 07/08/23 Range/Units 12:34 12:34 13:45 WBC (3.8-10.6) k/uL RBC (3.80-5.40) m/uL Hgb (11.4-16.0) gm/dL Hct (34.0-46.0) % MCV (80.0-100.0) fL MCH (25.0-35.0) pg MCHC (31.0-37.0) g/dL RDW (11.5-15.5) % Plt Count (150-450) k/uL MPV Neutrophils % % Lymphocytes % % Monocytes % % Eosinophils % % Basophils % % Neutrophils # (1.3-7.7) k/uL Lymphocytes # (1.0-4.8) k/uL Monocytes # (0-1.0) k/uL Eosinophils # (0-0.7) k/uL Basophils # (0-0.2) k/uL Hypochromasia Anisocytosis Sodium (137-145) mmol/L Potassium (3.5-5.1) mmol/L Chloride (98-107) mmol/L Carbon Dioxide (22-30) mmol/L Anion Gap mmol/L BUN (7-17) mg/dL Creatinine (0.52-1.04) mg/dL Est GFR (CKD-EPI)AfAm (>60 ml/min/1.73 sqM) Est GFR (CKD-EPI)NonAf (>60 ml/min/1.73 sqM) Glucose (74-99) mg/dL Plasma Lactic Acid Shailesh 0.6 L (0.7-2.0) mmol/L Calcium (8.4-10.2) mg/dL Magnesium (1.6-2.3) mg/dL Total Bilirubin (0.2-1.3) mg/dL AST (14-36) U/L ALT (4-34) U/L Alkaline Phosphatase (38-126) U/L Troponin I <0.012 (0.000-0.034) ng/mL Total Protein (6.3-8.2) g/dL Albumin (3.5-5.0) g/dL TSH 4.430 (0.465-4.680) mIU/L Urine Color Urine Appearance (Clear) Urine pH (5.0-8.0) Ur Specific [place] (1.001-1.035) Urine Protein (Negative) Urine Glucose (UA) (Negative) Urine Ketones (Negative) Urine Blood (Negative) Urine Nitrite (Negative) Urine Bilirubin (Negative) Urine Urobilinogen (<2.0) mg/dL Ur Leukocyte Esterase (Negative) Urine RBC (0-5) /hpf Urine WBC (0-5) /hpf Ur Squamous Epith Cells (0-4) /hpf Urine Bacteria (None) /hpf Hyaline Casts (0-2) /lpf Urine Mucus (None) /hpf Disposition Clinical Impression: Hypothermia, Urinary tract infection Disposition: ADMITTED IP TO THIS [facility] Time of Disposition: 17:21
[2023-07-08 13:18] LABS: ALT 27 U/L (4-34); African American GFR (CKD) 69 (>60 ml/min/1.73 sqM); Albumin 3.2 g/dL (3.5-5.0); Blood Urea Nitrogen 34 mg/dL (7-17); Non-African American GFR(CKD) 60 (>60 ml/min/1.73 sqM); Total Bilirubin 0.4 mg/dL (0.2-1.3)
[2023-07-08 13:30] LABS: Anion Gap 9 mmol/L; Calcium 9.2 mg/dL (8.4-10.2); Carbon Dioxide 16 mmol/L (22-30); Chloride 118 mmol/L (98-107); Glucose 80 mg/dL (74-99); Magnesium 2.3 mg/dL (1.6-2.3); Sodium 143 mmol/L (137-145); Total Protein 6.9 g/dL (6.3-8.2)
[2023-07-08 13:31] LABS: AST 32 U/L (14-36); Alkaline Phosphatase 123 U/L (38-126)
[2023-07-08 13:41] LABS: Anisocytosis Slight; Basophils % (A) 0 %; Eosinophils % (A) 1 %; HCT 29.1 % (34.0-46.0); HGB 9.2 gm/dL (11.4-16.0); Hypochromasia Moderate; Lymphocytes # (A) 0.6 k/uL (1.0-4.8); Lymphocytes % (A) 14 %; MCH 29.1 pg (25.0-35.0); MCHC 31.7 g/dL (31.0-37.0); MCV 91.8 fL (80.0-100.0); Mean Platelet Volume 9.6; Monocytes # (A) 0.3 k/uL (0-1.0); Monocytes % (A) 6 %; Neutrophils # (A) 3.1 k/uL (1.3-7.7); Neutrophils % (A) 76 %; Platelet Count 151 k/uL (150-450); RBC 3.17 m/uL (3.80-5.40); RDW 19.4 % (11.5-15.5); WBC 4.1 k/uL (3.8-10.6)
--- NOTE | 2023-07-08 14:26 | XR ---
EXAMINATION TYPE: XR chest 2V DATE OF EXAM: 07/08/2023 2:22 PM COMPARISON: Chest radiographs from 01/27/2023 TECHNIQUE: XR chest 2V Frontal and lateral views of the chest. CLINICAL INDICATION:Female, 78 years old with history of Weakness; FINDINGS: Lungs/Pleura: There is no evidence of pleural effusion, focal consolidation, or pneumothorax. Chroni c senescent parenchyma change. Pulmonary vascularity: Unremarkable. Heart/mediastinum: Cardiomediastinal silhouette is enlarged and stable. Atherosclerotic calcificatio ns are seen in the aorta. Musculoskeletal: No acute osseous pathology. Degenerative changes of the thoracic spine. Increased th oracic kyphosis. IMPRESSION: No acute cardiopulmonary disease/process.
--- NOTE | 2023-07-08 15:01 | CT ---
EXAMINATION TYPE: CT brain wo con DATE OF EXAM: 07/08/2023 COMPARISON: 01/27/2023 HISTORY: LEFT SIDE WEAKNESS, DIZZINESS CT DLP: 1165 mGycm Automated exposure control for dose reduction was used. FINDINGS: There is moderate degenerative change with an area of low attenuation within the deep white matter of the left parietal lobe which is retrospectively stable. Findings compatible with remote ischemia. No acute hemorrhage or mass effect. No midline shift. Calvarium is intact. There is a nasal septal deviation. Mastoid air cells clear. No significant cheung es of sinusitis. Correlate for prior orbital surgery\lens replacement surgery. Craniocervical junction maintained. Sella turcica is normal. IMPRESSION: DEGENERATIVE AND REMOTE ISCHEMIC CHANGE LEFT PARIETAL LOBE STABLE FROM PRIOR EXAM. NO ACUTE HEMORRHAG E OR MASS EFFECT.
[2023-07-08 16:31] LABS: Appearance,Urine Clear (Clear); Bacteria,Urine Many /hpf; Bilirubin,Urine Negative (Negative); Blood,Urine Negative (Negative); Color,Urine Colorless; Glucose,Urine (UA) Negative (Negative); Hyaline Casts,Urine 3 /lpf (0-2); Ketones,Urine Negative (Negative); Leukocyte Esterase,Urine Negative (Negative); Mucus,Urine Rare /hpf; Nitrite,Urine Positive (Negative); Protein,Urine Negative (Negative); RBC,Urine 1 /hpf (0-5); Specific Gravity,Urine 1.019 (1.001-1.035); Squamous Epithelial Cell,Urine <1 /hpf (0-4); Urobilinogen,Urine <2.0 mg/dL (<2.0); WBC,Urine 3 /hpf (0-5)
[2023-07-08] MEDS ORDERED: cefTRIAXone IN SWFI 1,000 MG/10 ML SYRINGE IVP STA ×2 (16:59→17:00)
--- NOTE | 2023-07-09 11:00 | P.CONS ---
History of Present Illness - Reason for Consult Consult date: 07/09/23 wound care - History of Present Illness This is a 78-year-old patient being seen on [facility] for nonhealing ulcerations to the sacrum and bilateral lower extremities. Patient presented to the emergency room yesterday with increased dizziness over the last few days. At this time patient is sleeping unable to arouse. Patient has a stage II pressure ulcer to the left buttocks measuring approximately 1 x 1 x 0.1 cm with si gnificant amount of slough and minimal granulation noted within the wound bed. Right buttocks has a stage II pressure ulcer measuring approximately 1.5 x 1 x 0.1 cm with minimal granulation moderate amount of slough and nonviable tissue. No tunneling or undermining noted. Bilateral lower extremities have multiple ulcerations venous in nature with 2+ pitting edema serous drainage. The periwound shows erythema and flaking skin. Ulcerations have minimal granulation noted to wound bed with Slough and nonviable tissue present no tunneling or undermining noted. The wound edges are attached to the wound base. Review of systems: Unable to obtain due to mental status Physical exam: General Appearance: Alert, cooperative, no distress, appears stated age. Skin: See HPI all other Skin color, texture, tugor normal, no rashes or lesions. Neurologic: Alert oriented x3 Assessment: 1. Stage II pressure ulcer left buttocks 2. Stage II pressure ulcer right buttocks 3. Chronic venous hypertension with inflammation and ulceration to bilateral lower extremities 4. Nonhealing ulceration to the left lower extremity multiple sites with fat layer exposure 3. Nonhealing ulceration multiple sites of right lower extremity with fat layer exposure Plan: 1.Sacrum: Apply honey alginate, saline moisten gauze and sacral border foam. Madeline. Lower extremities: apply absorptive silver, rolled gauze and debbie wrap in figure 8 design for compression. Turn patient every 2 hours. While sitting utilizing a filled cushion. Elevate legs 30 minutes 3 times a day. Patient wou ld benefit from continued advanced wound care and wound care center. We would be happy to see her upon discharge. Thank you for the consultation any questions please contact the wound care center DNP note has been reviewed and discussed with Dr. Kenney and the impression and plan of care has been directed as dictated. Past Medical History Past Medical History: Osteoarthritis (OA), Pneumonia, Vascular Disorder Additional Past Medical History / Comment(s): lower leg edema History of Any Multi-Drug Resistant Organisms: None Reported Past Surgical History: Appendectomy, Joint Replacement, Tubal Ligation Additional Past Surgical History / Comment(s): madeline hip and knees total replacement; cat sx with lens implants both eyes Past Anesthesia/Blood Transfusion Reactions: No Reported Reaction Past Psychological History: No Psychological Hx Reported Smoking Status: Never smoker Past Alcohol Use History: None Reported Past Drug Use History: None Reported - Past Family History Father Additional Family Medical History / Comment(s): PASSED OF OLD AGE Mother Additional Family Medical History / Comment(s): PASSED OF OLD AGE Medications and Allergies Home Medications Medication Instructions Recorded Confirmed Type Aspirin EC [Ecotrin Low Dose] 81 mg PO DAILY 01/27/23 07/08/23 History Brimonidine Tartrate [Alphagan P 1 drop RIGHT EYE BID 01/27/23 07/08/23 History 0.2% Ophth Soln] Fluorometholone 0.1% Ophth Megan 1 drop BOTH EYES BID 01/27/23 07/08/23 History [Fml] Latanoprost Ophth [Xalatan 0.005%] 1 drop BOTH EYES HS 01/27/23 07/08/23 History Potassium Chloride [Klor-Con M10] 10 meq PO DAILY 01/27/23 07/08/23 History Dorzolamide-Timol 2.23%/0.68% 1 drop BOTH EYES BID 07/08/23 07/08/23 History [Cosopt] Furosemide [Lasix] 40 mg PO DAILY 07/08/23 07/08/23 History Pantoprazole [Protonix] 40 mg PO DAILY 07/08/23 07/08/23 History Allergies Allergy/AdvReac Type Severity Reaction Status Date / Time No Known Allergies Allergy Verified 07/08/23 12:33 Physical Exam Vitals: Vital Signs Temp Pulse Pulse Resp BP BP Pulse Ox 07/09/23 08:00 97.7 F 87 18 124/65 99 07/09/23 06:01 97.6 F 85 18 125/64 99 07/09/23 01:48 97.5 F L 82 18 124/79 100 07/08/23 23:05 99.1 F 95 22 119/46 98 07/08/23 22:04 99.9 F H 98 20 112/89 97 07/08/23 21:11 100.9 F H 07/08/23 21:00 101.0 F H 122 H 20 07/08/23 20:25 101.3 F H 110 H 20 116/46 92 L 07/08/23 20:15 101.8 F H 138 H 22 07/08/23 19:10 100 18 110/49 94 L 07/08/23 19:00 100 16 109/45 94 L 07/08/23 18:50 97 18 109/45 95 07/08/23 18:40 96 18 109/45 95 07/08/23 18:32 92 18 113/48 96 07/08/23 18:30 97.5 F L 95 18 109/45 96 07/08/23 18:00 97.3 F L 94 18 112/44 96 07/08/23 17:00 97.3 F L 96 18 123/55 96 07/08/23 16:56 94.5 F L 81 16 123/55 96 07/08/23 15:00 80 18 127/66 98 07/08/23 12:45 90.9 F L 07/08/23 12:27 53 L 18 158/90 100 Intake and Output 07/08/23 07/09/23 07/09/23 22:59 06:59 14:59 Output Total 725 Balance -725 Output: Urine 725 Other: Voiding Method Indwelling Catheter Weight 110.3 kg Results CBC & Chem 7: 07/08/23 12:34 07/08/23 12:34 Labs: Abnormal Lab Results - Last 24 Hours (Table) 07/08/23 07/08/23 07/08/23 Range/Units 12:34 12:34 12:34 RBC 3.17 L (3.80-5.40) m/uL Hgb 9.2 L (11.4-16.0) gm/dL Hct 29.1 L (34.0-46.0) % RDW 19.4 H (11.5-15.5) % Lymphocytes # 0.6 L (1.0-4.8) k/uL Potassium 6.0 H (3.5-5.1) mmol/L Chloride 118 H (98-107) mmol/L Carbon Dioxide 16 L (22-30) mmol/L BUN 34 H (7-17) mg/dL Plasma Lactic Acid Shailesh (0.7-2.0) mmol/L Albumin 3.2 L (3.5-5.0) g/dL Urine Nitrite Positive H (Negative) Urine Bacteria Many H (None) /hpf Hyaline Casts 3 H (0-2) /lpf Urine Mucus Rare H (None) /hpf 07/08/23 07/08/23 Range/Units 12:34 18:40 RBC (3.80-5.40) m/uL Hgb (11.4-16.0) gm/dL Hct (34.0-46.0) % RDW (11.5-15.5) % Lymphocytes # (1.0-4.8) k/uL Potassium (3.5-5.1) mmol/L Chloride (98-107) mmol/L Carbon Dioxide (22-30) mmol/L BUN (7-17) mg/dL Plasma Lactic Acid Shailesh 0.6 L <0.5 L (0.7-2.0) mmol/L Albumin (3.5-5.0) g/dL Urine Nitrite (Negative) Urine Bacteria (None) /hpf Hyaline Casts (0-2) /lpf Urine Mucus (None) /hpf Assessment and Plan (1) Stage II pressure ulcer of left buttock Current Visit: Yes Status: Acute Code(s): L89.322 - PRESSURE ULCER OF LEFT BUTTOCK, STAGE 2 SNOMED Code(s): 53403121149781 (2) Stage II pressure ulcer of right buttock Current Visit: Yes Status: Acute Code(s): L89.312 - PRESSURE ULCER OF RIGHT BUTTOCK, STAGE 2 SNOMED Code(s): 84406252406616 (3) Chronic venous hypertension (idiopathic) with ulcer and inflammation of bilateral lower extremity Current Visit: Yes Status: Acute Code(s): I87.333 - CHRONIC VENOUS HTN W ULCER AND INFLAM OF BILATERAL LOW EXTRM SNOMED Code(s): 765531710324783 (4) Nonhealing ulcer of multiple sites of left lower extremity with fat layer exposed Current Visit: Yes Status: Acute Code(s): L97.922 - NON-PRS CHR ULC UNSP PRT OF L LOW LEG W FAT LAYER EXPOSED SNOMED Code(s): 68618206 (5) Nonhealing ulcer of multiple sites of right lower extremity with fat layer exposed Current Visit: Yes Status: Acute Code(s): L97.912 - NON-PRS CHR ULC UNSP PRT OF R LOW LEG W FAT LAYER EXPOSED SNOMED Code(s): 80919307
[2023-07-09] MEDS ORDERED: FUROSEMIDE 10 MG/ML 4 ML VIAL IV STA (11:31)
--- NOTE | 2023-07-09 11:39 | P.HPIM ---
History of Present Illness 78-year-old female was admitted the for dizziness. I'm unable to get Of history from the patient as it was really hard to wake the patient up she is quite lethargic. As per nursing staff patient was alert and oriented 3. Has been feeling weak for the few days and loss of appetite. There is no clear evidence of infection urine is not significant abnormal although patient was started on Rocephin which will be continued for now chest x-ray did not show any pneumonia. CT of the head is within normal limits. Patient denied any shortness of breath is not hypoxic at this time. Apparently patient denied any dysuria or increased urinary urgency or frequency to the ER physician of the nursing staff. REVIEW OF SYSTEMS: Unable to obtain PHYSICAL EXAMINATION: GENERAL: Sleeping not in any acute distress. Well developed, well nourished. HEENT: Pupils are round and equally reacting to light. EOMI. No scleral icterus. No conjunctival pallor. Normocephalic, atraumatic. No pharyngeal erythema. No thyromegaly. CARDIOVASCULAR: S1 and S2 present. No murmurs, rubs, or gallops. PULMONARY: Chest is clear to auscultation, no wheezing or crackles. ABDOMEN: Soft, nontender, nondistended, normoactive bowel sounds. No palpable organomegaly. MUSCULOSKELETAL: No joint swelling or deformity. EXTREMITIES: No cyanosis, clubbing, or pedal edema. NEUROLOGICAL: Unable to obtain SKIN: Stage III sacral decubitus ulcers which doesn't appear to be infected Assessment and plan -Dizziness lethargy generalized weakness: Although there is no clear evidence of infection I cannot completely rule out infection because of which she can you with antibiotics patient has a sacral decubitus ulcer. There is no clear evidence of UTI or pneumonia at this time. We'll Allsop an echo cardiac exam -Generalized weakness: Physical or be of additional therapy evaluation. As per the ER documentation patient is ambulatory -Uninfected sacral decubitus ulcer unsure whether patient is bedbound but the wound care is following the patient -Bilateral lymphedema for which she patient is on Lasix patient still has some edema will be given IV Lasix and will monitor electrolytes and kidney function Stark-hyperkalemia secondary to potassium will use Lokelma DVT prophylaxis: Lovenox Past Medical History Past Medical History: Osteoarthritis (OA), Pneumonia, Vascular Disorder Additional Past Medical History / Comment(s): lower leg edema History of Any Multi-Drug Resistant Organisms: None Reported Past Surgical History: Appendectomy, Joint Replacement, Tubal Ligation Additional Past Surgical History / Comment(s): madeline hip and knees total replacement; cat sx with lens implants both eyes Past Anesthesia/Blood Transfusion Reactions: No Reported Reaction Past Psychological History: No Psychological Hx Reported Smoking Status: Never smoker Past Alcohol Use History: None Reported Past Drug Use History: None Reported - Past Family History Father Additional Family Medical History / Comment(s): PASSED OF OLD AGE Mother Additional Family Medical History / Comment(s): PASSED OF OLD AGE Medications and Allergies Home Medications Medication Instructions Recorded Confirmed Type Aspirin EC [Ecotrin Low Dose] 81 mg PO DAILY 01/27/23 07/08/23 History Brimonidine Tartrate [Alphagan P 1 drop RIGHT EYE BID 01/27/23 07/08/23 History 0.2% Ophth Soln] Fluorometholone 0.1% Ophth Megan 1 drop BOTH EYES BID 01/27/23 07/08/23 History [Fml] Latanoprost Ophth [Xalatan 0.005%] 1 drop BOTH EYES HS 01/27/23 07/08/23 History Potassium Chloride [Klor-Con M10] 10 meq PO DAILY 01/27/23 07/08/23 History Dorzolamide-Timol 2.23%/0.68% 1 drop BOTH EYES BID 07/08/23 07/08/23 History [Cosopt] Furosemide [Lasix] 40 mg PO DAILY 07/08/23 07/08/23 History Pantoprazole [Protonix] 40 mg PO DAILY 07/08/23 07/08/23 History Allergies Allergy/AdvReac Type Severity Reaction Status Date / Time No Known Allergies Allergy Verified 07/08/23 12:33 Physical Exam Vitals: Vital Signs Temp Pulse Pulse Resp BP BP Pulse Ox 07/09/23 08:00 97.7 F 87 18 124/65 99 07/09/23 06:01 97.6 F 85 18 125/64 99 07/09/23 01:48 97.5 F L 82 18 124/79 100 07/08/23 23:05 99.1 F 95 22 119/46 98 07/08/23 22:04 99.9 F H 98 20 112/89 97 07/08/23 21:11 100.9 F H 07/08/23 21:00 101.0 F H 122 H 20 07/08/23 20:25 101.3 F H 110 H 20 116/46 92 L 07/08/23 20:15 101.8 F H 138 H 22 07/08/23 19:10 100 18 110/49 94 L 07/08/23 19:00 100 16 109/45 94 L 07/08/23 18:50 97 18 109/45 95 07/08/23 18:40 96 18 109/45 95 07/08/23 18:32 92 18 113/48 96 07/08/23 18:30 97.5 F L 95 18 109/45 96 07/08/23 18:00 97.3 F L 94 18 112/44 96 07/08/23 17:00 97.3 F L 96 18 123/55 96 07/08/23 16:56 94.5 F L 81 16 123/55 96 07/08/23 15:00 80 18 127/66 98 07/08/23 12:45 90.9 F L 07/08/23 12:27 53 L 18 158/90 100 Intake and Output 07/08/23 07/09/23 07/09/23 22:59 06:59 14:59 Output Total 725 Balance -725 Output: Urine 725 Other: Voiding Method Indwelling Catheter Weight 110.3 kg Results CBC & Chem 7: 07/08/23 12:34 07/08/23 12:34 Labs: Abnormal Lab Results - Last 24 Hours (Table) 07/08/23 07/08/23 07/08/23 Range/Units 12:34 12:34 12:34 RBC 3.17 L (3.80-5.40) m/uL Hgb 9.2 L (11.4-16.0) gm/dL Hct 29.1 L (34.0-46.0) % RDW 19.4 H (11.5-15.5) % Lymphocytes # 0.6 L (1.0-4.8) k/uL Potassium 6.0 H (3.5-5.1) mmol/L Chloride 118 H (98-107) mmol/L Carbon Dioxide 16 L (22-30) mmol/L BUN 34 H (7-17) mg/dL Plasma Lactic Acid Shailesh (0.7-2.0) mmol/L Albumin 3.2 L (3.5-5.0) g/dL Urine Nitrite Positive H (Negative) Urine Bacteria Many H (None) /hpf Hyaline Casts 3 H (0-2) /lpf Urine Mucus Rare H (None) /hpf 07/08/23 07/08/23 Range/Units 12:34 18:40 RBC (3.80-5.40) m/uL Hgb (11.4-16.0) gm/dL Hct (34.0-46.0) % RDW (11.5-15.5) % Lymphocytes # (1.0-4.8) k/uL Potassium (3.5-5.1) mmol/L Chloride (98-107) mmol/L Carbon Dioxide (22-30) mmol/L BUN (7-17) mg/dL Plasma Lactic Acid Shailesh 0.6 L <0.5 L (0.7-2.0) mmol/L Albumin (3.5-5.0) g/dL Urine Nitrite (Negative) Urine Bacteria (None) /hpf Hyaline Casts (0-2) /lpf Urine Mucus (None) /hpf Thrombosis Risk Factor Assmnt - Choose All That Apply Each Factor Represents 1 point: Obesity (BMI >25), Swollen legs (current) Each Risk Factor Represents 3 Points: Age 75 years or older Thrombosis Risk Factor Assessment Total Risk Factor Score: 5 Thrombosis Risk Factor Assessment Level: High Risk
[2023-07-09 12:15] LABS: African American GFR (CKD) 58 (>60 ml/min/1.73 sqM); Anion Gap 7 mmol/L; Blood Urea Nitrogen 29 mg/dL (7-17); Calcium 8.7 mg/dL (8.4-10.2); Carbon Dioxide 18 mmol/L (22-30); Chloride 121 mmol/L (98-107); Glucose 71 mg/dL (74-99); Non-African American GFR(CKD) 51 (>60 ml/min/1.73 sqM); Potassium 5.3 mmol/L (3.5-5.1); Sodium 146 mmol/L (137-145)
[2023-07-09 13:49] VITALS: BMI 43.0
[2023-07-09 17:05] LABS: Glucose,Whole Blood 74 mg/dL (70-110)
[2023-07-09] MEDS: BRIMONIDINE TARTRATE 0.2% DROPS 5 ML BTL RIGHT EYE SCH (19:54)
[2023-07-09] MEDS: LATANOPROST 0.005% OPHTH DROPS 2.5 ML BTL BOTH EYES SCH (19:55)
[2023-07-09] MEDS: FLUOROMETHOLONE 0.1% OPHTH DROPS 5 ML BTL BOTH EYES SCH (19:55)
--- NOTE | 2023-07-10 06:57 | CA ---
Transthoracic Echo Report Name: Ashley Lang Age: 78 Gender: F : 1945 Exam Date: 07/09/2023 13:25 Exam Location: [facility] Ht (in): 63 Wt (lb): 243 Ordering Physician: Yarelis Tse MD Attending/Referring Phys: Respiratory Therapist Assistant Annetta Wright [facility] Procedure CPT: Indications: Dizziness, rule out aortic stenosis. Cardiac Hx: Technical Quality: Technically difficult study Contrast 1: Total Dose (mL): Contrast 2: Total Dose (mL): MEASUREMENTS (Male / Female) Normal Values 2D ECHO LV Diastolic Diameter PLAX 4.4 cm 4.2 - 5.9 / 3.9 - 5.3 cm LV Systolic Diameter PLAX 3.2 cm IVS Diastolic Thickness 0.6 cm 0.6 - 1.0 / 0.6 - 0.9 cm LVPW Diastolic Thickness 0.7 cm 0.6 - 1.0 / 0.6 - 0.9 cm LV Relative Wall Thickness 0.3 LVOT Diameter 2.0 cm M-MODE Aortic Root Diameter MM 3.1 cm LA Systolic Diameter MM 4.3 cm LA Ao Ratio MM 1.4 AV Cusp Separation MM 2.0 cm DOPPLER AV Peak Velocity 132.4 cm/s AV Peak Gradient 7.0 mmHg AV Mean Velocity 97.6 cm/s AV Mean Gradient 4.2 mmHg AV Velocity Time Integral 30.6 cm LVOT Peak Velocity 117.5 cm/s LVOT Peak Gradient 5.5 mmHg LVOT Velocity Time Integral 30.6 cm LVOT Stroke Volume 97.3 cm??? LVOT Stroke Volume Index 46.3 ml/m??? LVOT Cardiac Index 3593.9 cm???/min???m??? AV Area Cont Eq vti 3.2 cm??? AV Area Cont Eq pk 2.8 cm??? MV Peak Velocity 132.4 cm/s MV Peak Gradient 7.0 mmHg MV Mean Velocity 95.4 cm/s MV Mean Gradient 3.9 mmHg MV Velocity Time Integral 30.4 cm MV Area PHT 3.8 cm??? MR Peak Velocity 502.4 cm/s MR Peak Gradient 101.0 mmHg Mitral E Point Velocity 85.5 cm/s Mitral A Point Velocity 108.2 cm/s Mitral E to A Ratio 0.8 MV Deceleration Time 134.7 ms LV E' Lateral Velocity 12.6 cm/s Mitral E to LV E' Lateral Ratio 6.8 LV E' Septal Velocity 10.0 cm/s Mitral E to LV E' Septal Ratio 8.6 Right Atrial Pressure 15.0 mmHg FINDINGS Left Ventricle Severely increased left ventricular wall thickness. Left ventricular cavity size normal. Normal left ventricular systolic function with no obvious regional wall motion abnormalities. Left ventricular ejection fraction is estimated at 55-60%. Right Ventricle Moderate right ventricular dilatation. Unable to estimate the right ventricular systolic pressure. Right Atrium Mild right atrial dilatation. Left Atrium Moderate left atrial dilatation. Mitral Valve Moderate mitral annular calcification . Mild mitral regurgitation. Aortic Valve Trileaflet aortic valve. No aortic valve stenosis or regurgitation.aortic valve sclerosis. Tricuspid Valve Structurally normal tricuspid valve. Pulmonic Valve Pulmonic valve not well visualized. Pericardium No pericardial effusion. Aorta Normal size aortic root. CONCLUSIONS 1. Normal left ventricle size and systolic function 2. Mild mitral regurgitation 3. Aortic sclerosis with no evidence of stenosis Previewed by: Dr. Ben Barraza MD (Electronically Signed) Final Date: 10 July 2023 06:56
[2023-07-10] MEDS: ASPIRIN 81 MG PO SCH (08:03)
[2023-07-10] MEDS: FLUOROMETHOLONE 0.1% OPHTH DROPS 5 ML BTL BOTH EYES SCH ×2 (08:05→19:26)
[2023-07-10] MEDS: BRIMONIDINE TARTRATE 0.2% DROPS 5 ML BTL RIGHT EYE SCH ×2 (08:05→19:26)
[2023-07-10 08:15] LABS: Glucose,Whole Blood 62 mg/dL (70-110)
[2023-07-10] MEDS ORDERED: DEXTROSE 50% SYRINGE 50 ML IVP ONE (08:15)
[2023-07-10] MEDS ORDERED: DEXTROSE 50% SYRINGE 50 ML IVP STA (08:16)
[2023-07-10 08:31] LABS: Glucose,Whole Blood 180 mg/dL (70-110)
[2023-07-10] MEDS ORDERED: PANTOPRAZOLE 40 MG TABLET PO SCH (09:00)
[2023-07-10 09:34] LABS: African American GFR (CKD) 47 (>60 ml/min/1.73 sqM); Anion Gap 13 mmol/L; Blood Urea Nitrogen 28 mg/dL (7-17); Calcium 8.9 mg/dL (8.4-10.2); Carbon Dioxide 18 mmol/L (22-30); Chloride 117 mmol/L (98-107); Glucose 57 mg/dL (74-99); Magnesium 1.9 mg/dL (1.6-2.3); Non-African American GFR(CKD) 40 (>60 ml/min/1.73 sqM); Potassium 4.7 mmol/L (3.5-5.1); Sodium 148 mmol/L (137-145)
[2023-07-10] MEDS: DEXTROSE 5% IN WATER 1,000 ML IV SCH ×2 (10:18→22:49)
[2023-07-10] MEDS: FAMOTIDINE 20 MG/2 ML VIAL IV SCH (10:18)
[2023-07-10] MEDS: HEPARIN SODIUM,PORCINE 5,000 UNIT/ML 1 ML VIAL SQ SCH ×2 (10:18→19:26)
[2023-07-10 11:37] LABS: Glucose,Whole Blood 106 mg/dL (70-110)
--- NOTE | 2023-07-10 15:24 | P.PN ---
Subjective Progress Note Date: 07/10/23 78-year-old female was admitted the for dizziness. I'm unable to get Of history from the patient as it was really hard to wake the patient up she is quite lethargic. As per nursing staff patient was alert and oriented 3. Has been feeling weak for the few days and loss of appetite. There is no clear ev idence of infection urine is not significant abnormal although patient was started on Rocephin which will be continued for now chest x-ray did not show any pneumonia. CT of the head is within normal limits. Patient denied any shortness of breath is not hypoxic at this time. Apparently patient denied any dysuria or increased urinary urgency or frequency to the ER physician of the nursing staff. 07/10/2023 Reasons mentation has improved somewhat. She continues to remain lethargic though. Continues to have low blood sugar in the 50s despite dextrose treatment. Sodium is also up to 148 and renal function is worsening patient was started on D5 water at 75 mL per hour. Echocardiogram reveals normal LV function and mild MR. Unable to complete a full review of systems, patient is lethargic PHYSICAL EXAMINATION: GENERAL: Sleeping not in any acute distress. alert x 2. Well developed, well nourished. HEENT: Pupils are round and equally reacting to light. EOMI. No scleral icterus. No conjunctival pallor. Normocephalic, atraumatic. No pharyngeal erythema. No thyromegaly. CARDIOVASCULAR: S1 and S2 present. No murmurs, rubs, or gallops. PULMONARY: Chest is clear to auscultation, no wheezing or crackles. ABDOMEN: Soft, nontender, nondistended, normoactive bowel sounds. No palpable organomegaly. MUSCULOSKELETAL: No joint swelling or deformity. EXTREMITIES: No cyanosis, clubbing, or pedal edema. NEUROLOGICAL: Unable to obtain, lethargic, upper extremity are equal SKIN: Stage III sacral decubitus ulcers which doesn't appear to be infected Assessment and plan -Dizziness lethargy generalized weakness: most likely secondary to hypoglycemia patient was started on dextrose gtt; C-Peptide and insulin levels will be checked -Mild WINDY prerenal azotemia due to dehydration and poor oral intake, patient will be started on IV fluids. -Generalized weakness: PT/OT consultation -Dysphagia likely due to AMS, speech therapy recommending patient to be NPO for now. -Uninfected sacral decubitus ulcer unsure whether patient is bedbound, wound care following the patient recommending therahoney to the wound with saline moistened gauze and optifoam dressing. -Bilateral lower extremity chronic venous stasis ulcerations treated with absorptive silver gauze and debbie wrap to continue. -Bilateral lymphedema lasix will be held patient is being hydrated. -hyperkalemia secondary to potassium will use Lokelma, potassium has improved down to 4.7. DVT prophylaxis: Lovenox GI prophylaxis: IV pepcid The impression and plan of care has been dictated by Haylie Bernabe, Nurse Practitioner as directed. Dr. Carmencita MD I have performed a history and physical examination and medical decision making of this patient, discussed the same with the dictator, and agree with the dictators assessment and plan as written, documented as a scribe. Based on total visit time, I have performed more than 50% of this visit. Objective - Vital Signs Vital signs: Vital Signs Temp 98.1 F 07/10/23 08:00 Pulse 95 07/10/23 12:11 Resp 16 07/10/23 12:11 BP 125/64 07/10/23 12:11 Pulse Ox 98 07/10/23 12:11 FiO2 Intake & Output 07/09/23 07/10/23 07/10/23 18:59 06:59 18:59 Intake Total 120 0 Output Total 3100 Balance -2980 0 Weight 110.3 kg 110 kg Intake: Oral 120 0 Output: Urine 3100 Other: Voiding Method Indwelling Catheter Indwelling Catheter Indwelling Catheter # Bowel Movements 0 - Labs CBC & Chem 7: 07/08/23 12:34 07/10/23 08:54 Labs: Abnormal Lab Results - Last 24 Hours (Table) 07/10/23 07/10/23 07/10/23 Range/Units 08:14 08:29 08:54 Sodium 148 H (137-145) mmol/L Chloride 117 H (98-107) mmol/L Carbon Dioxide 18 L (22-30) mmol/L BUN 28 H (7-17) mg/dL Creatinine 1.27 H (0.52-1.04) mg/dL Glucose 57 L (74-99) mg/dL POC Glucose (mg/dL) 62 L 180 H (70-110) mg/dL Microbiology - Last 24 Hours (Table) 07/08/23 15:00 Blood Culture - Preliminary Blood 07/08/23 14:45 Blood Culture - Preliminary Blood Assessment and Plan Time with Patient: Less than 30
[2023-07-10 16:26] LABS: Glucose,Whole Blood 92 mg/dL (70-110)
[2023-07-10] MEDS: LATANOPROST 0.005% OPHTH DROPS 2.5 ML BTL BOTH EYES SCH (19:27)
[2023-07-10 20:02] LABS: Glucose,Whole Blood 118 mg/dL (70-110)
[2023-07-11 02:00] LABS: Glucose,Whole Blood 135 mg/dL (70-110)
[2023-07-11 05:47] LABS: Glucose,Whole Blood 153 mg/dL (70-110)
[2023-07-11 09:31] LABS: Anisocytosis Slight; Basophils % (A) 0 %; Eosinophils # (A) 0.1 k/uL (0-0.7); Eosinophils % (A) 2 %; HCT 26.3 % (34.0-46.0); HGB 8.2 gm/dL (11.4-16.0); Hypochromasia Marked; Lymphocytes # (A) 0.7 k/uL (1.0-4.8); Lymphocytes % (A) 19 %; MCH 29.3 pg (25.0-35.0); MCHC 31.3 g/dL (31.0-37.0); MCV 93.5 fL (80.0-100.0); Macrocytosis Slight; Monocytes # (A) 0.3 k/uL (0-1.0); Monocytes % (A) 8 %; Neutrophils # (A) 2.6 k/uL (1.3-7.7); Neutrophils % (A) 69 %; Platelet Count 125 k/uL (150-450); RBC 2.82 m/uL (3.80-5.40); RDW 19.3 % (11.5-15.5); WBC 3.7 k/uL (3.8-10.6)
[2023-07-11 10:09] LABS: African American GFR (CKD) 71 (>60 ml/min/1.73 sqM); Anion Gap 6 mmol/L; Blood Urea Nitrogen 25 mg/dL (7-17); Calcium 8.9 mg/dL (8.4-10.2); Carbon Dioxide 22 mmol/L (22-30); Chloride 111 mmol/L (98-107); Glucose 138 mg/dL (74-99); Magnesium 1.8 mg/dL (1.6-2.3); Non-African American GFR(CKD) 61 (>60 ml/min/1.73 sqM); Potassium 4.6 mmol/L (3.5-5.1); Sodium 139 mmol/L (137-145)
[2023-07-11] MEDS: HEPARIN SODIUM,PORCINE 5,000 UNIT/ML 1 ML VIAL SQ SCH (10:09)
[2023-07-11] MEDS: FAMOTIDINE 20 MG/2 ML VIAL IV SCH (10:09)
[2023-07-11] MEDS: ASPIRIN 81 MG PO SCH (10:09)
[2023-07-11] MEDS: FLUOROMETHOLONE 0.1% OPHTH DROPS 5 ML BTL BOTH EYES SCH ×2 (10:10→19:34)
[2023-07-11] MEDS: BRIMONIDINE TARTRATE 0.2% DROPS 5 ML BTL RIGHT EYE SCH ×2 (10:10→19:34)
[2023-07-11] MEDS: DEXTROSE 5% IN WATER 1,000 ML IV SCH (10:11)
[2023-07-11] MEDS: ATORVASTATIN 40 MG TAB PO SCH (11:04)
[2023-07-11 11:25] LABS: Glucose,Whole Blood 146 mg/dL (70-110)
--- NOTE | 2023-07-11 12:14 | P.CRDCN ---
History of Present Illness Consult date: 07/11/23 Requesting physician: Yarelis Tse Reason for Consult (text): possible aflutter, new onset Chief complaint: weakness, dizziness History of present illness: This is a 78-year-old female patient who has altered mental status and is currently aphasic and therefore HPI was obtained from the chart and nursing staff. She apparently presented to the emergency department via EMS with complaints of poor appetite for a few days, significant dizziness and lower extremity weakness. He has been quite lethargic throughout her hospital stay. Prior to admission she is apparently been living alone at home and walks with a walker. There is no clear evidence of infection on admission. CT scan of the brain showed degenerative and remote ischemic change left parietal lobe stable from prior exam, no acute hemorrhage or mass effect. Asked to see the patient in consultation or possible atrial flutter, new onset. On review of telemetry it appears patient is having episodes of paroxysmal atrial fib/flutter, self terminating. By mouth to be asymptomatic but again patient has somewhat altered mental status although she is aphasic she is answering yes and no questions and denies palpitations. She denies any further dizziness. Cardiogram with Doppler study showed a normal LV systolic function with mild MR. Show evidence of anemia with a hemoglobin on admission of 9.2, down 8.2 this morning. On admission potassium was 6.0 with most recent 4.7. Labs this yesterday showed worsening renal function with a creatinine of 1.27 which was 0.92 on admission. Sodium was elevated at 146. Troponin was negative 1 and TSH is normal. Blood pressure has been relatively stable but quite elevated at 4 this morning at 187/77. She currently denies any discomfort or distress. She complains of lower extremity edema seems to be chronic. Denies any palpitations, chest pain or shortness of breath. She has no orthopnea or PND. Past Medical History Past Medical History: Osteoarthritis (OA), Pneumonia, Vascular Disorder Additional Past Medical History / Comment(s): lower leg edema History of Any Multi-Drug Resistant Organisms: None Reported Past Surgical History: Appendectomy, Joint Replacement, Tubal Ligation Additional Past Surgical History / Comment(s): madeline hip and knees total replacement; cat sx with lens implants both eyes Past Anesthesia/Blood Transfusion Reactions: No Reported Reaction Past Psychological History: No Psychological Hx Reported Smoking Status: Never smoker Past Alcohol Use History: None Reported Past Drug Use History: None Reported - Past Family History Father Additional Family Medical History / Comment(s): PASSED OF OLD AGE Mother Additional Family Medical History / Comment(s): PASSED OF OLD AGE Medications and Allergies Home Medications Medication Instructions Recorded Confirmed Type Aspirin EC [Ecotrin Low Dose] 81 mg PO DAILY 01/27/23 07/08/23 History Brimonidine Tartrate [Alphagan P 1 drop RIGHT EYE BID 01/27/23 07/08/23 History 0.2% Ophth Soln] Fluorometholone 0.1% Ophth Megan 1 drop BOTH EYES BID 01/27/23 07/08/23 History [Fml] Latanoprost Ophth [Xalatan 0.005%] 1 drop BOTH EYES HS 01/27/23 07/08/23 History Potassium Chloride [Klor-Con M10] 10 meq PO DAILY 01/27/23 07/08/23 History Dorzolamide-Timol 2.23%/0.68% 1 drop BOTH EYES BID 07/08/23 07/08/23 History [Cosopt] Furosemide [Lasix] 40 mg PO DAILY 07/08/23 07/08/23 History Pantoprazole [Protonix] 40 mg PO DAILY 07/08/23 07/08/23 History Allergies Allergy/AdvReac Type Severity Reaction Status Date / Time No Known Allergies Allergy Verified 07/08/23 12:33 Physical Exam Vitals: Vital Signs Temp Pulse Resp BP Pulse Ox 07/11/23 08:38 99 07/11/23 04:00 71 18 187/77 99 07/10/23 23:54 75 18 139/63 98 07/10/23 19:57 96.7 F L 82 18 126/61 99 07/10/23 15:27 96.8 F L 97 16 134/62 98 07/10/23 12:11 95 16 125/64 98 Intake and Output 07/10/23 07/11/23 07/11/23 22:59 06:59 14:59 Intake Total 540 Output Total 800 400 Balance -800 140 Intake: Oral 540 Output: Urine 800 400 Other: Voiding Method Indwelling Catheter Indwelling Catheter PHYSICAL EXAMINATION: This is a 78-year-old female is aphasic but does not appear to be in any apparent distress at the time of my examination. VITAL SIGNS: Reviewed HEENT: Head is atraumatic, normocephalic. Pupils are equal, round. Sclerae anicteric. Conjunctivae are clear. Mucous membranes of the mouth are dry. Neck is supple. There is no elevated jugular venous pressure. No carotid bruit is heard. CHEST EXAMINATION: Clear to auscultation bilaterally. No wheezes rales or rhonchi. Respirations even and nonlabored. HEART EXAMINATION: Heart regular, positive S1 and S2. No S3. No S4. No clicks, rubs or murmurs. ABDOMEN: Soft, nontender. Bowel sounds are heard. No organomegaly noted. EXTREMITIES: 2+ peripheral pulses with evidence mild peripheral edema and no calf tenderness noted. NEUROLOGIC EXAMINATION: Patient is awake, alert and aphasic. Slight weakness noted on left hand grasp and left dorsal and plantar flexion. Results 07/11/23 08:58 07/11/23 08:58 CBC 07/11/23 Range/Units 08:58 WBC 3.7 L (3.8-10.6) k/uL RBC 2.82 L (3.80-5.40) m/uL Hgb 8.2 L (11.4-16.0) gm/dL Hct 26.3 L (34.0-46.0) % Plt Count 125 L (150-450) k/uL Comprehensive Metabolic Panel 07/10/23 Range/Units 15:58 Sodium 146 H (137-145) mmol/L Current Medications Generic Name Dose Route Start Last Admin Trade Name Freq PRN Reason Stop Dose Admin Aspirin 81 mg 07/10/23 09:00 07/10/23 08:03 Aspirin 81 Mg PO Not Given DAILY ROXY Brimonidine Tartrate 1 drops 07/09/23 21:00 07/10/23 19:26 Brimonidine Tartrate 0.2% Drops 5 Ml Btl RIGHT EYE 1 drops BID ROXY Administration Famotidine 20 mg 07/10/23 10:00 07/10/23 10:18 Famotidine 20 Mg/2 Ml Vial IV 20 mg DAILY ROXY Administration Fluorometholone 1 drops 07/09/23 21:00 07/10/23 19:26 Fluorometholone 0.1% Ophth Drops 5 Ml Btl BOTH EYES 1 drops BID ROXY Administration Heparin Sodium (Porcine) 5,000 unit 07/10/23 09:00 07/10/23 19:26 Heparin Sodium,Porcine 5,000 Unit/Ml 1 Ml Vial SQ 5,000 unit Q12HR ROXY Administration Dextrose/Water 1,000 mls @ 75 mls/hr 07/10/23 10:00 07/10/23 22:49 Dextrose 5%-Water Iv Soln IV 75 mls/hr .[id number] ROXY Administration Ceftriaxone Sodium 1 gm/ 50 mls @ 100 mls/hr 07/11/23 09:00 Sodium Chloride IVPB Q24HR ROXY Protocol Latanoprost 1 drops 07/09/23 21:00 07/10/23 19:27 Latanoprost 0.005% Ophth Drops 2.5 Ml Btl BOTH EYES 1 drops HS ROXY Administration Intake and Output 07/10/23 07/11/23 07/11/23 22:59 06:59 14:59 Intake Total 540 Output Total 800 400 Balance -800 140 Intake: Oral 540 Output: Urine 800 400 Other: Voiding Method Indwelling Catheter Indwelling Catheter 07/11/23 08:58 07/10/23 15:58 Assessment and Plan Assessment: #1 new-onset paroxysmal atrial fib/flutter #2 altered mental status with aphasia, likely secondary to CVA, neurology has been consult ct computed tomography scan showed remote ischemia #3 WINDY #4 hyperkalemia resolved 5 anemia Plan: From cardiology perspective medications were reviewed and we will continue the same at this time. Will await neurology's and put in regards to anticoagulation as well as closely monitor the anemia no current signs of bleeding. Follow blood pressure closely and if needed we will add antihypertensives. We will continue to follow the patient closely and provide further recommendations accordingly. [employer] note has been reviewed, I agree with a documented findings and plan of care. Patient was seen and examined.
--- NOTE | 2023-07-11 14:11 | CT ---
EXAMINATION TYPE: CT brain wo con DATE OF EXAM: 07/11/2023 COMPARISON: 07/08/2023 HISTORY: pre op cardiac surgery CT DLP: 449.8 mGycm Automated exposure control for dose reduction was used. FINDINGS: The ventricles, basal cisterns and sulci over the convexities within normal limits and there is no ma ss effect or shift of midline structures. There are a few tiny remote lacunar infarcts in the left basal ganglia. Graft there is mild ischemic white matter demyelination. There is no acute intra or extra-axial hemorrhage. The posterior fossa including the brainstem, fourth ventricle and cerebellar pontine angles appear no rmal. The intraorbital contents appear normal and symmetric. Visualized paranasal sinuses and mastoid air cells are well aerated. IMPRESSION: 1. No acute bleed or mass effect. 2. No interval change compared to previous. 3. mild chronic ischemic changes as described above. IMPRESSION:
[2023-07-11] MEDS: APIXABAN 5 MG TAB PO SCH ×2 (14:49→19:34)
[2023-07-11] MEDS ORDERED: Magnesium Replacement Protocol 1 EACH MISC MISCELLANE PRN (14:51)
--- NOTE | 2023-07-11 14:52 | US ---
EXAMINATION TYPE: US carotid duplex BILAT DATE OF EXAM: 07/11/2023 COMPARISON: NONE CLINICAL INDICATION: Female, 78 years old with history of stroke work up; stroke work up TECHNIQUE: Carotid duplex ultrasound examination. Indirect Doppler criteria was utilized. FINDINGS: EXAM MEASUREMENTS: RIGHT: Peak Systolic Velocity (PSV) cm/sec ----- Right CCA: 78.1 ----- Right ICA: 90.5 ----- Right ECA: 90.5 ICA/CCA ratio: 1.2 RIGHT: End Diastole cm/sec ----- Right CCA: 15.5 ----- Right ICA: 25.8 ----- Right ECA: 10.2 LEFT: Peak Systolic Velocity (PSV) cm/sec ----- Left CCA: 85.3 ----- Left ICA: 87.9 ----- Left ECA: 82.7 ICA/CCA ratio: 1.0 LEFT: End Diastole cm/sec ----- Left CCA: 19.3 ----- Left ICA: 25.8 ----- Left ECA: 7.6 VERTEBRALS (direction of flow): Right Vertebral: Antegrade Left Vertebral: Antegrade Rhythm: Normal IMPRESSION: 1. Mild plaque in the carotid bifurcations but no significant stenosis based on peak systolic velocit ies and ratios. 2. Antegrade flow in the vertebral arteries. Criteria for Assigning % of Stenosis / Diameter reduction (Estimation based on the indirect measurements of the internal carotid artery velocities (ICA PSV). 1. Normal (no stenosis)=ICA PSV < 125 cm/s: ratio < 2.0: ICA EDV<40 cm/s. 2. Less than 50% stenosis=ICA PSV < 125 cm/s: ratio < 2.0: ICA EDV<40 cm/s. 3. 50 to 69% stenosis=ICA PSV of 125 to 230 cm/s: ration 2.0 ? 4.0: ICA EDV 40-100 cm/s. 4. Greater than 70% stenosis to near occlusion= ICA PSV > 230 cm/s: ratio > 4.0: ICA EDV > 100 cm/s. 5. Near occlusion= ICA PSV velocities may be low or undetectable: variable ratio and ICA EDV. 6. Total occlusion=unable to detect flow.
--- NOTE | 2023-07-11 14:54 | P.PN ---
Subjective Progress Note Date: 07/11/23 78-year-old female was admitted the for dizziness. I'm unable to get Of history from the patient as it was really hard to wake the patient up she is quite lethargic. As per nursing staff patient was alert and oriented 3. Has been feeling weak for the few days and loss of appetite. There is no clear ev idence of infection urine is not significant abnormal although patient was started on Rocephin which will be continued for now chest x-ray did not show any pneumonia. CT of the head is within normal limits. Patient denied any shortness of breath is not hypoxic at this time. Apparently patient denied any dysuria or increased urinary urgency or frequency to the ER physician of the nursing staff. 07/10/2023 Reasons mentation has improved somewhat. She continues to remain lethargic though. Continues to have low blood sugar in the 50s despite dextrose treatment. Sodium is also up to 148 and renal function is worsening patient was started on D5 water at 75 mL per hour. Echocardiogram reveals normal LV function and mild MR. 07/11/2023 Patient is evaluated today in the medical floor. She is more awake as compared to yesterday however she is now not speaking and per nursing there was concern for some left sided weakness. Cardiology did evaluate the patient and felt that there was some paroxysmal atrial flutter/fibrillation patient has been started on eliquis pending further recommendations from neurology. Concern for stroke neurology consultation in place patient will have repeat brain CT today as well as carotid Doppler and lipid panel have been ordered. Patient remains on IV ceftriaxone empirically. Lasix remains on hold. She is being hydrated with D5 water at 75 mL/hr and sodium has normalized today down to 139. Her renal function is stable with a BUN of 25 and a creatinine of 0.90. The glucose is also improved. Unable to complete a full review of systems PHYSICAL EXAMINATION: GENERAL: Sleeping not in any acute distress. alert x 2. Well developed, well nou rished. HEENT: Pupils are round and equally reacting to light. EOMI. No scleral icterus. No conjunctival pallor. Normocephalic, atraumatic. No pharyngeal erythema. No thyromegaly. CARDIOVASCULAR: S1 and S2 present. No murmurs, rubs, or gallops. PULMONARY: Chest is clear to auscultation, no wheezing or crackles. ABDOMEN: Soft, nontender, nondistended, normoactive bowel sounds. No palpable organomegaly. MUSCULOSKELETAL: No joint swelling or deformity. EXTREMITIES: No cyanosis, clubbing, or pedal edema. NEUROLOGICAL: Diffuse weakness patient is now aphasic. SKIN: Stage III sacral decubitus ulcers which doesn't appear to be infected Assessment and plan -Dizziness lethargy generalized weakness: most likely secondary to hypoglycemia patient was started on dextrose gtt; C-Peptide and insulin levels will be checked -Mild WINDY prerenal azotemia due to dehydration and poor oral intake, improved with IV fluids -Paroxysmal atrial fibrillation/atrial flutter started on eliquis for anticoagul ation. -Generalized weakness: PT/OT consultation -Dysphagia likely due to AMS, speech therapy recommending patient to be NPO for now. -Uninfected sacral decubitus ulcer unsure whether patient is bedbound, wound care following the patient recommending therahoney to the wound with saline moistened gauze and optifoam dressing. -Bilateral lower extremity chronic venous stasis ulcerations treated with absorptive silver gauze and debbie wrap to continue. -Bilateral lymphedema lasix will be held patient is being hydrated. -hyperkalemia secondary to potassium will use Lokelma, potassium has improved down to 4.6 DVT prophylaxis: eliquis GI prophylaxis: IV pepcid Plan Cardiology evaluation pending neurology input regarding anticoagulation as patient does have neuro deficits has been started on eliquis with further recommendations pending from neurology. AM cortisol level checked. Blood glucose improving while on D5 water. Patient will be continued on fluids overnight. PT/OT and speech therapy consultation in place. Continue with local wound care. Replace electrolytes. Follow up labs in AM. The impression and plan of care has been dictated by Nurse Vincent Prac titioner as directed. Dr. Carmencita MD I have performed a history and physical examination and medical decision making of this patient, discussed the same with the dictator, and agree with the dictators assessment and plan as written, documented as a scribe. Based on total visit time, I have performed more than 50% of this visit. Objective - Vital Signs Vital signs: Vital Signs Temp 97.9 F 07/11/23 11:46 Pulse 66 07/11/23 11:46 Resp 18 07/11/23 11:46 BP 126/63 07/11/23 11:46 Pulse Ox 98 07/11/23 11:46 FiO2 Intake & Output 07/10/23 07/11/23 07/11/23 18:59 06:59 18:59 Intake Total 540 955 Output Total 500 700 200 Balance -500 -160 755 Intake: IV 5 Invasive Line 1 5 Intake, IV Titration 950 Amount Dextrose 5% in Water 1, 900 000 ml @ 75 mls/hr IV . [id number] ROXY Rx#:[id number] cefTRIAXone 1 gm In 50 Sodium Chloride 0.9% 50 ml @ 100 mls/hr IVPB Q24HR [facility] Rx#:[id number] Oral 540 Output: Urine 500 700 200 Uretheral (Rico) 200 Other: Voiding Method Indwelling Catheter Indwelling Catheter Indwelling Catheter - Labs CBC & Chem 7: 07/11/23 08:58 07/11/23 08:58 Labs: Abnormal Lab Results - Last 24 Hours (Table) 07/10/23 07/10/23 07/11/23 Range/Units 15:58 20:01 01:59 WBC (3.8-10.6) k/uL RBC (3.80-5.40) m/uL Hgb (11.4-16.0) gm/dL Hct (34.0-46.0) % RDW (11.5-15.5) % Plt Count (150-450) k/uL Lymphocytes # (1.0-4.8) k/uL Sodium 146 H (137-145) mmol/L Chloride (98-107) mmol/L BUN (7-17) mg/dL Glucose (74-99) mg/dL POC Glucose (mg/dL) 118 H 135 H (70-110) mg/dL 07/11/23 07/11/23 07/11/23 Range/Units 05:45 08:58 08:58 WBC 3.7 L (3.8-10.6) k/uL RBC 2.82 L (3.80-5.40) m/uL Hgb 8.2 L (11.4-16.0) gm/dL Hct 26.3 L (34.0-46.0) % RDW 19.3 H (11.5-15.5) % Plt Count 125 L (150-450) k/uL Lymphocytes # 0.7 L (1.0-4.8) k/uL Sodium (137-145) mmol/L Chloride 111 H (98-107) mmol/L BUN 25 H (7-17) mg/dL Glucose 138 H (74-99) mg/dL POC Glucose (mg/dL) 153 H (70-110) mg/dL 07/11/23 Range/Units 11:23 WBC (3.8-10.6) k/uL RBC (3.80-5.40) m/uL Hgb (11.4-16.0) gm/dL Hct (34.0-46.0) % RDW (11.5-15.5) % Plt Count (150-450) k/uL Lymphocytes # (1.0-4.8) k/uL Sodium (137-145) mmol/L Chloride (98-107) mmol/L BUN (7-17) mg/dL Glucose (74-99) mg/dL POC Glucose (mg/dL) 146 H (70-110) mg/dL Microbiology - Last 24 Hours (Table) 07/08/23 15:00 Blood Culture - Preliminary Blood 07/08/23 14:45 Blood Culture - Preliminary Blood Assessment and Plan Time with Patient: Less than 30
[2023-07-11] MEDS ORDERED: MAGNESIUM SULFATE-D5W PMX 1 GM in DEXTROSE/WATER 1 100ML.BAG IVPB ONE (16:00)
[2023-07-11 16:42] LABS: Glucose,Whole Blood 122 mg/dL (70-110)
[2023-07-11] MEDS: LATANOPROST 0.005% OPHTH DROPS 2.5 ML BTL BOTH EYES SCH (19:34)
[2023-07-11] MEDS: DORZOLAMIDE-TIMOLOL 2.23%/0.68 10ML BTL BOTH EYES SCH (19:35)
[2023-07-11 19:43] LABS: Glucose,Whole Blood 110 mg/dL (70-110)
[2023-07-12] MEDS: DEXTROSE 5% IN WATER 1,000 ML IV SCH ×2 (00:56→10:09)
[2023-07-12 02:01] LABS: Glucose,Whole Blood 114 mg/dL (70-110)
[2023-07-12 05:52] LABS: Glucose,Whole Blood 112 mg/dL (70-110)
[2023-07-12] MEDS: ATORVASTATIN 40 MG TAB PO SCH (07:44)
[2023-07-12] MEDS: ASPIRIN 81 MG PO SCH (07:44)
[2023-07-12] MEDS: APIXABAN 5 MG TAB PO SCH ×2 (07:44→21:36)
[2023-07-12] MEDS: BRIMONIDINE TARTRATE 0.2% DROPS 5 ML BTL RIGHT EYE SCH ×2 (07:45→21:36)
[2023-07-12] MEDS: FAMOTIDINE 20 MG/2 ML VIAL IV SCH (07:46)
[2023-07-12] MEDS: DORZOLAMIDE-TIMOLOL 2.23%/0.68 10ML BTL BOTH EYES SCH ×2 (07:46→21:36)
[2023-07-12] MEDS: FLUOROMETHOLONE 0.1% OPHTH DROPS 5 ML BTL BOTH EYES SCH ×2 (07:46→21:36)
[2023-07-12 08:10] LABS: Anisocytosis Slight; HCT 27.9 % (34.0-46.0); HGB 8.8 gm/dL (11.4-16.0); Hypochromasia Moderate; MCH 29.2 pg (25.0-35.0); MCHC 31.6 g/dL (31.0-37.0); MCV 92.7 fL (80.0-100.0); Mean Platelet Volume 8.5; Platelet Count 155 k/uL (150-450); RBC 3.01 m/uL (3.80-5.40); RDW 18.8 % (11.5-15.5); WBC 3.8 k/uL (3.8-10.6)
[2023-07-12 09:10] LABS: African American GFR (CKD) 67 (>60 ml/min/1.73 sqM); Anion Gap 9 mmol/L; Blood Urea Nitrogen 20 mg/dL (7-17); Carbon Dioxide 23 mmol/L (22-30); Chloride 109 mmol/L (98-107); Glucose 109 mg/dL (74-99); Non-African American GFR(CKD) 58 (>60 ml/min/1.73 sqM); Potassium 4.5 mmol/L (3.5-5.1); Sodium 141 mmol/L (137-145)
--- NOTE | 2023-07-12 10:58 | P.PN ---
Subjective Progress Note Date: 07/12/23 78-year-old female was admitted the for dizziness. I'm unable to get Of history from the patient as it was really hard to wake the patient up she is quite lethargic. As per nursing staff patient was alert and oriented 3. Has been feeling weak for the few days and loss of appetite. There is no clear ev idence of infection urine is not significant abnormal although patient was started on Rocephin which will be continued for now chest x-ray did not show any pneumonia. CT of the head is within normal limits. Patient denied any shortness of breath is not hypoxic at this time. Apparently patient denied any dysuria or increased urinary urgency or frequency to the ER physician of the nursing staff. 07/10/2023 Reasons mentation has improved somewhat. She continues to remain lethargic though. Continues to have low blood sugar in the 50s despite dextrose treatment. Sodium is also up to 148 and renal function is worsening patient was started on D5 water at 75 mL per hour. Echocardiogram reveals normal LV function and mild MR. 07/11/2023 Patient is evaluated today in the medical floor. She is more awake as compared to yesterday however she is now not speaking and per nursing there was concern for some left sided weakness. Cardiology did evaluate the patient and felt that there was some paroxysmal atrial flutter/fibrillation patient has been started on eliquis pending further recommendations from neurology. Concern for stroke neurology consultation in place patient will have repeat brain CT today as well as carotid Doppler and lipid panel have been ordered. Patient remains on IV ceftriaxone empirically. Lasix remains on hold. She is being hydrated with D5 water at 75 mL/hr and sodium has normalized today down to 139. Her renal function is stable with a BUN of 25 and a creatinine of 0.90. The glucose is also improved. 07/12/2023 Patient is evaluated today sitting up in bed. More awake and alert than yesterday. No focal neurological deficits. However, patient remains confused and alert x 1. Thought we were in a kitchen. Remains on empiric antibiotics with IV ceftriaxone. Blood culture remains negative and procalcitonin level was normal. Sodium today improved to 141, Renal function normalized. Hemoglobin remains stable at 8.8. Patient remains in normal sinus rhythm with evidence of paroxysmal atrial fibrillation and patient was started on eliquis and pending neurology input at this time. Follow up brain CT reveals no acute bleed or mass effect, no interval change compared to previous. Mild chronic ischemic changes as above including; few tiny remote lacunar infarcts in the left basal ganglia, and mention of mild ischemic white matter demyelination. Neurology following. Carotid doppler reveals mild plaque in the carotid bifurcations but no significant stenosis based on peak systolic velocities and ratios. Antegrade flow in the vertebral arteries. Review of Systems Constitutional: Denied any fatigue denied any fever. Cardio vascular: denied any chest pain, palpitations Gastrointestinal: denied any nausea, vomiting, diarrhea Pulmonary: Denied any shortness of breath cough Neurologic denied any new focal deficits All inpatient medications were reviewed and appropriate changes in these medications as dictated in the interval history and assessment and plan. PHYSICAL EXAMINATION: GENERAL: Sleeping not in any acute distress. alert x 1. Well developed, well nourished. HEENT: Pupils are round and equally reacting to light. EOMI. No scleral icterus. No conjunctival pallor. Normocephalic, atraumatic. No pharyngeal erythema. No thyromegaly. CARDIOVASCULAR: S1 and S2 present. No murmurs, rubs, or gallops. PULMONARY: Chest is clear to auscultation, no wheezing or crackles. ABDOMEN: Soft, nontender, nondistended, normoactive bowel sounds. No palpable organomegaly. MUSCULOSKELETAL: No joint swelling or deformity. EXTREMITIES: No cyanosis, clubbing, or pedal edema. NEUROLOGICAL: Diffuse weakness however equal patient is talking however confused today. SKIN: Stage III sacral decubitus ulcers which doesn't appear to be infected Assessment and plan -Dizziness lethargy generalized weakness: most likely secondary to hypoglycemia patient was started on dextrose gtt; C-Peptide and insulin levels WNL. Need to rule out stroke. -Mild WINDY prerenal azotemia due to dehydration and poor oral intake, improved with IV fluids -Paroxysmal atrial fibrillation/atrial flutter started on eliquis for anticoagulation. -Generalized weakness: PT/OT consultation -Dysphagia likely due to AMS, speech therapy recommending patient to be NPO for now. -Uninfected sacral decubitus ulcer unsure whether patient is bedbound, wound care following the patient recommending therahoney to the wound with saline moistened gauze and optifoam dressing. -Bilateral lower extremity chronic venous stasis ulcerations treated with absorptive silver gauze and debbie wrap to continue. -Bilateral lymphedema lasix will be held patient is being hydrated. -hyperkalemia secondary to potassium will use Lokelma, potassium has improved down to 4.6 DVT prophylaxis: eliquis GI prophylaxis: IV pepcid Plan Cardiology evaluation pending neurology input regarding anticoagulation as patient does have neuro deficits has been started on eliquis with further recommendations pending from neurology. AM cortisol level checked. Blood glucose improving while on D5 water. Patient will be continued on fluids overnight. PT/OT and speech therapy consultation in place. Continue with local wound care. Replace electrolytes. Follow up labs in AM. The impression and plan of care has been dictated by Haylie Bernabe Nurse Practitioner as directed. Dr. Carmencita MD I have performed a history and physical examination and medical decision making of this patient, discussed the same with the dictator, and agree with the dictators assessment and plan as written, documented as a scribe. Based on total visit time, I have performed more than 50% of this visit. Objective - Vital Signs Vital signs: Vital Signs Temp 97.6 F 07/12/23 07:36 Pulse 68 07/12/23 07:36 Resp 18 07/12/23 07:36 BP 133/95 07/12/23 07:36 Pulse Ox 96 07/12/23 07:36 FiO2 Intake & Output 07/11/23 07/12/23 07/12/23 19:59 06:59 18:59 Intake Total 125 Output Total 100 Balance 25 Intake: IV 5 Invasive Line 1 Invasive Line 2 5 Intake, IV Titration Amount Dextrose 5% in Water 1, 000 ml @ 75 mls/hr IV . [id number] [facility] Rx#:[id number] cefTRIAXone 1 gm In Sodium Chloride 0.9% 50 ml @ 100 mls/hr IVPB Q24HR [facility] Rx#:[id number] Oral 120 Output: Urine 100 Uretheral (Rico) 100 Other: Voiding Method Indwelling Catheter - Labs CBC & Chem 7: 07/12/23 07:21 07/12/23 07:21 Labs: Abnormal Lab Results - Last 24 Hours (Table) 07/11/23 07/12/23 07/12/23 Range/Units 16:40 01:31 EST 05:50 RBC (3.80-5.40) m/uL Hgb (11.4-16.0) gm/dL Hct (34.0-46.0) % RDW (11.5-15.5) % Chloride (98-107) mmol/L BUN (7-17) mg/dL Glucose (74-99) mg/dL POC Glucose (mg/dL) 122 H 114 H 112 H (70-110) mg/dL 07/12/23 07/12/23 Range/Units 07:21 07:21 RBC 3.01 L (3.80-5.40) m/uL Hgb 8.8 L (11.4-16.0) gm/dL Hct 27.9 L (34.0-46.0) % RDW 18.8 H (11.5-15.5) % Chloride 109 H (98-107) mmol/L BUN 20 H (7-17) mg/dL Glucose 109 H (74-99) mg/dL POC Glucose (mg/dL) (70-110) mg/dL Microbiology - Last 24 Hours (Table) 07/08/23 15:00 Blood Culture - Preliminary Blood 07/08/23 14:45 Blood Culture - Preliminary Blood Assessment and Plan Time with Patient: Less than 30
[2023-07-12 11:14] LABS: LDL Cholesterol,Calculated 68.1 mg/dL (0.0-131.0); VLDL Calculation 14.44 mg/dL (5.00-40.00)
[2023-07-12 11:35] LABS: Glucose,Whole Blood 124 mg/dL (70-110)
--- NOTE | 2023-07-12 12:37 | P.PN ---
Subjective Progress Note Date: 07/12/23 This is a 78-year-old female patient who has altered mental status and is currently aphasic and therefore HPI was obtained from the chart and nursing staff. She apparently presented to the emergency department via EMS with complaints of poor appetite for a few days, significant dizziness and lower extremity weakness. He has been quite lethargic throughout her hospital stay. Prior to admission she is apparently been living alone at home and walks with a walker. There is no clear evidence of infection on admission. CT scan of the brain showed degenerative and remote ischemic change left parietal lobe stable from prior exam, no acute hemorrhage or mass effect. Asked to see the patient in consultation or possible atrial flutter, new onset. On review of telemetry it appears patient is having episodes of paroxysmal atrial fib/flutter, self terminating. By mouth to be asymptomatic but again patient has somewhat altered mental status although she is aphasic she is answering yes and no questions and denies palpitations. She denies any further dizziness. Cardiogram with Doppler study showed a normal LV systolic function with mild MR. Show evidence of anemia with a hemoglobin on admission of 9.2, down 8.2 this morning. On admission potassium was 6.0 with most recent 4.7. Labs this yesterday showed worsening renal function with a creatinine of 1.27 which was 0.92 on admission. Sodium was elevated at 146. Troponin was negative 1 and TSH is normal. Blood pressure has been relatively stable but quite elevated at 4 this morning at 187/77. She currently denies any discomfort or distress. She complains of lower extremity edema seems to be chronic. Denies any palpitations, chest pain or shortness of breath. She has no orthopnea or PND. 07/12/2023 She was seen and examined resting comfortably in bed. Mental status seems to be less altered. She is no longer aphasic. She is overall feeling well. She verbalizes feeling better. She is maintaining sinus mechanism. She's been initiated on Eliquis by primary. Vital signs are stable. Objective - Vital Signs Vital signs: Vital Signs Temp 97.6 F 07/12/23 07:36 Pulse 68 07/12/23 07:36 Resp 18 07/12/23 07:36 BP 133/95 07/12/23 07:36 Pulse Ox 96 07/12/23 07:36 FiO2 Intake & Output 07/11/23 07/12/23 07/12/23 19:59 06:59 18:59 Intake Total 125 Output Total 250 Balance -125 Intake: IV 5 Invasive Line 1 Invasive Line 2 5 Intake, IV Titration Amount Dextrose 5% in Water 1, 000 ml @ 75 mls/hr IV . [id number] [facility] Rx#:[id number] cefTRIAXone 1 gm In Sodium Chloride 0.9% 50 ml @ 100 mls/hr IVPB Q24HR [facility] Rx#:[id number] Oral 120 Output: Urine 250 Uretheral (Rico) 250 Other: Voiding Method Indwelling Catheter - Exam HEENT: Head is atraumatic, normocephalic. Pupils are equal, round. Sclerae anicteric. Conjunctivae are clear. Mucous membranes of the mouth are dry. Neck is supple. There is no elevated jugular venous pressure. No carotid bruit is heard. CHEST EXAMINATION: Clear to auscultation bilaterally. No wheezes rales or rhonchi. Respirations even and nonlabored. HEART EXAMINATION: Heart regular, positive S1 and S2. No S3. No S4. No clicks, rubs or murmurs. ABDOMEN: Soft, nontender. Bowel sounds are heard. No organomegaly noted. EXTREMITIES: 2+ peripheral pulses with evidence mild peripheral edema and no calf tenderness noted. NEUROLOGIC EXAMINATION: Patient is awake, alert and oriented 2-3. Slight weakness noted on left hand grasp and left dorsal and plantar flexion. - Labs CBC & Chem 7: 07/12/23 07:21 07/12/23 07:21 Labs: Abnormal Lab Results - Last 24 Hours (Table) 07/11/23 07/12/23 07/12/23 Range/Units 16:40 01:31 EST 05:50 RBC (3.80-5.40) m/uL Hgb (11.4-16.0) gm/dL Hct (34.0-46.0) % RDW (11.5-15.5) % Chloride (98-107) mmol/L BUN (7-17) mg/dL Glucose (74-99) mg/dL POC Glucose (mg/dL) 122 H 114 H 112 H (70-110) mg/dL 07/12/23 07/12/23 07/12/23 Range/Units 07:21 07:21 11:33 RBC 3.01 L (3.80-5.40) m/uL Hgb 8.8 L (11.4-16.0) gm/dL Hct 27.9 L (34.0-46.0) % RDW 18.8 H (11.5-15.5) % Chloride 109 H (98-107) mmol/L BUN 20 H (7-17) mg/dL Glucose 109 H (74-99) mg/dL POC Glucose (mg/dL) 124 H (70-110) mg/dL Microbiology - Last 24 Hours (Table) 07/08/23 15:00 Blood Culture - Preliminary Blood 07/08/23 14:45 Blood Culture - Preliminary Blood Assessment and Plan Assessment: #1 new-onset paroxysmal atrial fib/flutter #2 altered mental status with aphasia, likely secondary to CVA, neurology has been consult ct computed tomography scan showed remote ischemia #3 WINDY #4 hyperkalemia resolved 5 anemia Plan: From cardiology's perspective medications were reviewed. We will discontinue aspirin. Await Neurology input We will continue to follow the patient closely and provide further recommendations accordingly. TABBER note has been reviewed, I agree with a documented findings and plan of care. Patient was seen and examined.
[2023-07-12 16:16] LABS: Glucose,Whole Blood 99 mg/dL (70-110)
--- NOTE | 2023-07-12 17:20 | P.CNNES ---
History of Present Illness Consult date: 07/12/23 Reason for Consult: Aphasia History of Present Illness: The pt is a 78 y/o female who is seen in neurologic consultation on 2022, in collaboration with Mattie Alarcon, via teleneurology. History is obtained via review of the chart. The pt presented to the emergency department on 2022, via ambulance, with reports of dizziness, weakness and loss of appetite. These symptoms were reportedly occurring for about 3 days prior to presentation. In the ER, the pt was worked up for CVA, and other causes of weakness. CT scan of the brain was negative for acute infarct and hemorrhage. Urinalysis was positive for infection. The pt was placed on Rocephin and admitted to the hospital. In addition, the pt is noted to have nonhealing ulcers on buttocks, bilaterally. Blood cultures have been negative. On Jul.11, the pt was seen by the hospitalist and was reportedly aphasic. Nursing expressed concern regarding "left sided weakness". Repeat CT of brain was performed. Again, there was no sign of acute infarct or hemorrhage. The pt was started on Eliquis, by cardiology because of concern of paroxysmal atrial fibrillation. Review of Systems Unable to obtain secondary to mental status of pt Past Medical History Past Medical History: Osteoarthritis (OA), Pneumonia, Vascular Disorder Additional Past Medical History / Comment(s): lower leg edema History of Any Multi-Drug Resistant Organisms: None Reported Past Surgical History: Appendectomy, Joint Replacement, Tubal Ligation Additional Past Surgical History / Comment(s): madeline hip and knees total repla cement; cat sx with lens implants both eyes Past Anesthesia/Blood Transfusion Reactions: No Reported Reaction Past Psychological History: No Psychological Hx Reported Smoking Status: Never smoker Past Alcohol Use History: None Reported Past Drug Use History: None Reported - Past Family History Father Additional Family Medical History / Comment(s): PASSED OF OLD AGE Mother Additional Family Medical History / Comment(s): PASSED OF OLD AGE Medications and Allergies Home Medications Medication Instructions Recorded Confirmed Type Aspirin EC [Ecotrin Low Dose] 81 mg PO DAILY 01/27/23 07/08/23 History Brimonidine Tartrate [Alphagan P 1 drop RIGHT EYE BID 01/27/23 07/08/23 History 0.2% Ophth Soln] Fluorometholone 0.1% Ophth Megan 1 drop BOTH EYES BID 01/27/23 07/08/23 History [Fml] Latanoprost Ophth [Xalatan 0.005%] 1 drop BOTH EYES HS 01/27/23 07/08/23 History Potassium Chloride [Klor-Con M10] 10 meq PO DAILY 01/27/23 07/08/23 History Dorzolamide-Timol 2.23%/0.68% 1 drop BOTH EYES BID 07/08/23 07/08/23 History [Cosopt] Furosemide [Lasix] 40 mg PO DAILY 07/08/23 07/08/23 History Pantoprazole [Protonix] 40 mg PO DAILY 07/08/23 07/08/23 History Allergies Allergy/AdvReac Type Severity Reaction Status Date / Time No Known Allergies Allergy Verified 07/08/23 12:33 Physical Examination - Vital Signs Vital Signs: Vital Signs Temp Pulse Resp BP Pulse Ox 07/12/23 07:36 97.6 F 68 18 133/95 96 07/12/23 04:00 67 18 142/88 96 07/12/23 00:00 72 18 123/90 100 07/11/23 20:00 98.1 F 66 18 177/81 97 07/11/23 15:12 97.6 F 75 18 143/70 94 L 07/11/23 11:46 97.9 F 66 18 126/63 98 07/11/23 10:22 97.5 F L 71 18 186/77 97 Intake and Output 07/11/23 07/12/23 07/12/23 23:59 06:59 14:59 Intake Total 5 Output Total Balance 5 Intake: IV 5 Invasive Line 2 5 Oral Output: Urine Other: Voiding Method Indwelling Catheter General: The pt is reclining in the bed. She is obese. She is in no acute distress HEENT: Head is atraumatic, normocephalic. Fundus not visualized. There is no scleral icterus. Mucous membranes moist Neck: Supple without carotid bruits Heart: Regular rate and rhythm Lungs: No respiratory distress or wheezing Extremities: Bilateral lower extremity edema, with ulcers Neurological Examination Mental status: The pt is awake and alert. She is actively hallucinating, visual and auditory. 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 The pt is able to state her name, and age. There is perseveration of speech. The pt cooperates poorly with the examination, secondary to her active hallucinations. The pt is unable to report why she came into the hospital. She is able to follow simple commands, however is more more involved in her hallucination. She is constantly talking to "Bambi" her student otr company driver. The pt's speech is clear. Cranial Nerves: Pupils are equal at 4 mm and reactive. Visual cabrera are grossly intact. Extraocular movements are intact. Facial sensation is grossly intact. There is no facial asymmetry. Hearing is grossly intact. Shoulder shrug is symmetric. Tongue protrudes midline. Motor: Strength is 5/5 throughout Sensation: Grossly intact to light touch throughout Coordination: There is no obvious ataxia or tremor Deep tendon reflexes: 2+/4+ throughout Gait: Not assessed Results - Laboratory Findings CBC and BMP: 07/12/23 07:21 07/12/23 07:21 Abnormal Lab Findings: Abnormal Labs 07/08/23 07/08/23 07/08/23 12:34 12:34 12:34 WBC RBC 3.17 L Hgb 9.2 L Hct 29.1 L RDW 19.4 H Plt Count Lymphocytes # 0.6 L Sodium Potassium 6.0 H Chloride 118 H Carbon Dioxide 16 L BUN 34 H Creatinine Glucose POC Glucose (mg/dL) Plasma Lactic Acid Shailesh Albumin 3.2 L Urine Nitrite Positive H Urine Bacteria Many H Hyaline Casts 3 H Urine Mucus Rare H 07/08/23 07/08/23 07/09/23 12:34 18:40 11:41 WBC RBC Hgb Hct RDW Plt Count Lymphocytes # Sodium 146 H Potassium 5.3 H Chloride 121 H Carbon Dioxide 18 L BUN 29 H Creatinine 1.05 H Glucose 71 L POC Glucose (mg/dL) Plasma Lactic Acid Shailesh 0.6 L <0.5 L Albumin Urine Nitrite Urine Bacteria Hyaline Casts Urine Mucus 07/10/23 07/10/23 07/10/23 08:14 08:29 08:54 WBC RBC Hgb Hct RDW Plt Count Lymphocytes # Sodium 148 H Potassium Chloride 117 H Carbon Dioxide 18 L BUN 28 H Creatinine 1.27 H Glucose 57 L POC Glucose (mg/dL) 62 L 180 H Plasma Lactic Acid Shailesh Albumin Urine Nitrite Urine Bacteria Hyaline Casts Urine Mucus 07/10/23 07/10/23 07/11/23 15:58 20:01 01:59 WBC RBC Hgb Hct RDW Plt Count Lymphocytes # Sodium 146 H Potassium Chloride Carbon Dioxide BUN Creatinine Glucose POC Glucose (mg/dL) 118 H 135 H Plasma Lactic Acid Shailesh Albumin Urine Nitrite Urine Bacteria Hyaline Casts Urine Mucus 07/11/23 07/11/23 07/11/23 05:45 08:58 08:58 WBC 3.7 L RBC 2.82 L Hgb 8.2 L Hct 26.3 L RDW 19.3 H Plt Count 125 L Lymphocytes # 0.7 L Sodium Potassium Chloride 111 H Carbon Dioxide BUN 25 H Creatinine Glucose 138 H POC Glucose (mg/dL) 153 H Plasma Lactic Acid Shailesh Albumin Urine Nitrite Urine Bacteria Hyaline Casts Urine Mucus 07/11/23 07/11/23 07/12/23 11:23 16:40 01:31 EST WBC RBC Hgb Hct RDW Plt Count Lymphocytes # Sodium Potassium Chloride Carbon Dioxide BUN Creatinine Glucose POC Glucose (mg/dL) 146 H 122 H 114 H Plasma Lactic Acid Shailesh Albumin Urine Nitrite Urine Bacteria Hyaline Casts Urine Mucus 07/12/23 05:50 WBC RBC Hgb Hct RDW Plt Count Lymphocytes # Sodium Potassium Chloride Carbon Dioxide BUN Creatinine Glucose POC Glucose (mg/dL) 112 H Plasma Lactic Acid Shailesh Albumin Urine Nitrite Urine Bacteria Hyaline Casts Urine Mucus - Diagnostic Findings Comments: Repeat CT scan of brain reveals no sign of hemorrhage or infarct. Images have been personally reviewed. Carotid doppler and echocardiogram results are reviewed. There is no evidence of stenosis or cardiac abnormality Assessment and Plan Assessment: 1. At the time of this evaluation, the pt has difficulty with naming of objects. She is experiencing visual and auditory hallucinations. Examination is nonlateralizing. Altered mental status, possibly secondary to UTI vs acute/hospital psychosis vs delirium in the setting of underlying dementia 2. Per cardiology, new onset paroxysmal atrial fibrillation 3. Reported non healing ulcers on legs and buttocks Plan: 1. Stroke work up has been completed, with the exception of MRI brain. This test is thought to be unnecessary at this time 2. Will recheck urinalysis 3. Consider social work or care management consultation regarding pt's ability to safely care for herself 4. Consider psych consult if urine is clean Thank you for allowing us to participate in the care of this pt. Dr. Yusuf Singh will assume neurologic coverage of this pt as of 2022 Time with Patient: Greater than 30 (55 minutes were spent caring for this pt today, including obtaining a history, examining the pt, reviewing imaging, chart documentation, labs, placing orders and creating this note)
[2023-07-12 17:29] LABS: Appearance,Urine Cloudy (Clear); Bacteria,Urine Rare /hpf; Bilirubin,Urine Negative (Negative); Blood,Urine Large (Negative); Color,Urine Colorless; Glucose,Urine (UA) Negative (Negative); Ketones,Urine Negative (Negative); Leukocyte Esterase,Urine Large (Negative); Mucus,Urine Rare /hpf; Nitrite,Urine Negative (Negative); Protein,Urine Negative (Negative); RBC,Urine 137 /hpf (0-5); Specific Gravity,Urine 1.011 (1.001-1.035); Squamous Epithelial Cell,Urine 2 /hpf (0-4); Urobilinogen,Urine <2.0 mg/dL (<2.0); WBC,Urine 114 /hpf (0-5)
[2023-07-12 18:19] LABS: % Iron Saturation 15.82 (12.00-45.00)
[2023-07-12] MEDS: LATANOPROST 0.005% OPHTH DROPS 2.5 ML BTL BOTH EYES SCH (21:36)
[2023-07-13 02:34] LABS: Glucose,Whole Blood 91 mg/dL (70-110)
[2023-07-13] MEDS: DEXTROSE 5% IN WATER 1,000 ML IV SCH ×2 (06:18→08:01)
[2023-07-13 06:23] LABS: Glucose,Whole Blood 95 mg/dL (70-110)
[2023-07-13] MEDS: APIXABAN 5 MG TAB PO SCH ×2 (08:00→20:29)
[2023-07-13] MEDS: DORZOLAMIDE-TIMOLOL 2.23%/0.68 10ML BTL BOTH EYES SCH ×2 (08:01→20:28)
[2023-07-13] MEDS: ATORVASTATIN 40 MG TAB PO SCH (08:01)
[2023-07-13] MEDS: FAMOTIDINE 20 MG/2 ML VIAL IV SCH (08:01)
[2023-07-13] MEDS: BRIMONIDINE TARTRATE 0.2% DROPS 5 ML BTL RIGHT EYE SCH ×2 (08:01→20:28)
[2023-07-13] MEDS: FLUOROMETHOLONE 0.1% OPHTH DROPS 5 ML BTL BOTH EYES SCH ×2 (08:02→20:28)
[2023-07-13] MEDS ORDERED: QUEtiapine 25 MG TAB PO PRN (11:00)
[2023-07-13] MEDS: METOPROLOL SUCCINATE (ER) 25 MG TAB.ER.24H PO SCH (11:23)
--- NOTE | 2023-07-13 12:08 | P.PN ---
Subjective Progress Note Date: 07/13/23 History of present illness: This is a 78-year-old female patient who has altered mental status and is curr ently aphasic and therefore HPI was obtained from the chart and nursing staff. She apparently presented to the emergency department via EMS with complaints of poor appetite for a few days, significant dizziness and lower extremity weakness. He has been quite lethargic throughout her hospital stay. Prior to admission she is apparently been living alone at home and walks with a walker. There is no clear evidence of infection on admission. CT scan of the brain showed degenerative and remote ischemic change left parietal lobe stable from prior exam, no acute hemorrhage or mass effect. Asked to see the patient in consultation or possible atrial flutter, new onset. On review of telemetry it appears patient is having episodes of paroxysmal atrial fib/flutter, self terminating. By mouth to be asymptomatic but again patient has somewhat altered mental status although she is aphasic she is answering yes and no questions and denies palpitations. She denies any further dizziness. Cardiogram with Doppler study showed a normal LV systolic function with mild MR. Show evidence of anemia with a hemoglobin on admission of 9.2, down 8.2 this morning. On admission potassium was 6.0 with most recent 4.7. Labs this yesterday showed worsening renal function with a creatinine of 1.27 which was 0.92 on admission. Sodium was elevated at 146. Troponin was negative 1 and TSH is normal. Blood pressure has been relatively stable but quite elevated at 4 this morning at 187/77. She currently denies any discomfort or distress. She complains of lower extremity edema seems to be chronic. Denies any palpitations, chest pain or shortness of breath. She has no orthopnea or PND. 07/12/2023 She was seen and examined resting comfortably in bed. Mental status seems to be less altered. She is no longer aphasic. She is overall feeling well. She verbalizes feeling better. She is maintaining sinus mechanism. She's been initiated on Eliquis by primary. Vital signs are stable. 07/13 Patient is seen today in follow-up. 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 Heart rate is in the 70s, blood pressure 133/64, pulse ox 95% on room air. Telemetry is sinus rhythm. Patient has been started on eliquis during this hospitalization. She is not currently on a beta batsheva. Physical examination: Gen: This is a 78-year-old female resting bed and appears to be in no acute distress. VS: reviewed HEENT: Head is atraumatic, normocephalic. Pupils equal, round. Sclerae is anicteric. NECK: Supple. No JVD. . LUNGS: Clear to auscultation. No wheezes or rhonchi. No intercostal retract ions. HEART: Regular rate and rhythm. No murmur. ABDOMEN: Soft No tenderness. EXTREMITIES: No pedal edema. No calf tenderness. NEUROLOGICAL: Patient is awake, alert and oriented to person. Assessment: #1 new-onset paroxysmal atrial fib/flutter, converted to sinus rhythm #2 metabolic encephalopathy secondary to UTI, acute delirium with dementia per neurology #3 WINDY, resolved #4 hyperkalemia resolved 5 anemia 6 urinary tract infection Plan: Patient has been started on eliquis 5 mg twice daily Start patient on Toprol-XL 25 mg daily Cardiology will continue to follow. Nurse practitioner note has been reviewed, I agree with documented findings and plan of care. Patient was seen and examined. Objective - Vital Signs Vital signs: Vital Signs Temp 97.8 F 07/13/23 07:50 Pulse 72 07/13/23 07:50 Resp 20 07/13/23 07:50 BP 133/64 07/13/23 07:50 Pulse Ox 95 07/13/23 08:54 FiO2 Intake & Output 07/12/23 07/13/23 07/13/23 18:59 06:59 18:59 Intake Total 1435 Output Total 250 750 Balance 1185 -750 Intake: IV 5 Invasive Line 2 5 Intake, IV Titration 950 Amount Dextrose 5% in Water 1, 900 000 ml @ 75 mls/hr IV . [id number] ROXY Rx#:[id number] cefTRIAXone 1 gm In 50 Sodium Chloride 0.9% 50 ml @ 100 mls/hr IVPB Q24HR ROXY Rx#:[id number] Oral 480 Output: Urine 250 750 Uretheral (Rico) 250 750 Other: Voiding Method Indwelling Catheter Indwelling Catheter Indwelling Catheter # Bowel Movements 1 1 - Labs CBC & Chem 7: 07/12/23 07:21 07/12/23 07:21 Labs: Abnormal Lab Results - Last 24 Hours (Table) 07/12/23 07/12/23 Range/Units 11:33 16:30 POC Glucose (mg/dL) 124 H (70-110) mg/dL Urine Appearance Cloudy H (Clear) Urine Blood Large H (Negative) Ur Leukocyte Esterase Large H (Negative) Urine RBC 137 H (0-5) /hpf Urine WBC 114 H (0-5) /hpf Urine WBC Clumps Moderate H (None) /hpf Urine Bacteria Rare H (None) /hpf Urine Mucus Rare H (None) /hpf
[2023-07-13 12:10] LABS: Glucose,Whole Blood 96 mg/dL (70-110)
--- NOTE | 2023-07-13 16:15 | P.PN ---
Subjective Progress Note Date: 07/13/23 I am seeing the patient for the first time during this admission. Please refer to Dr. Shields's note for further details. Amaury without primary team S[employer]KE JUMPER SUPERVISOR and she stated that the patient the family stated that the on 07/03/2023 patient was complaining of dizziness and was not be able herself having some speech difficulty in the some confusion. According to the SMOKE JUMPER SUPERVISOR that she's been waxing and waning. It seems that the repeated to urine analysis she has underlying UTI possibly. As she has no onset A. fib and she was started on Eliquis. Objective - Vital Signs Vital signs: Vital Signs Temp 97.7 F 07/13/23 11:21 Pulse 60 07/13/23 14:05 Resp 20 07/13/23 11:21 BP 107/61 07/13/23 11:21 Pulse Ox 97 07/13/23 11:21 FiO2 Intake & Output 07/12/23 07/13/23 07/13/23 18:59 06:59 18:59 Intake Total 1435 Output Total 250 750 Balance 1185 -750 Weight 110 kg Intake: IV 5 Invasive Line 2 5 Intake, IV Titration 950 Amount Dextrose 5% in Water 1, 900 000 ml @ 75 mls/hr IV . [id number] ROXY Rx#:[id number] cefTRIAXone 1 gm In 50 Sodium Chloride 0.9% 50 ml @ 100 mls/hr IVPB Q24HR ROXY Rx#:[id number] Oral 480 Output: Urine 250 750 Uretheral (Rico) 250 750 Other: Voiding Method Indwelling Catheter Indwelling Catheter Indwelling Catheter # Bowel Movements 1 1 - Exam General: Lying in bed and is not in acute distress. HENT: Supple neck. Neuro: The patient is drowsy and is awakeable to voice. She is oriented to self, time and stated she was in hospital. upon asking her the year she turned to her right and the she was asking the same question is if there is someone in the room and she stated multiple times. She was able to name a few objects correctly such as watch and glasses. The speech is difficult to assess but does not. She is having any clear expressive aphasia. The pupils are round equal reactive to light. No facial weakness. No dysarthria Motor is hard to assess individual muscle strength but she is moving all extremities above gravity the uppers more than the lowers and it appears symmetrical. - Labs CBC & Chem 7: 07/12/23 07:21 07/12/23 07:21 Labs: Abnormal Lab Results - Last 24 Hours (Table) 07/12/23 Range/Units 16:30 Urine Appearance Cloudy H (Clear) Urine Blood Large H (Negative) Ur Leukocyte Esterase Large H (Negative) Urine RBC 137 H (0-5) /hpf Urine WBC 114 H (0-5) /hpf Urine WBC Clumps Moderate H (None) /hpf Urine Bacteria Rare H (None) /hpf Urine Mucus Rare H (None) /hpf Assessment and Plan Assessment: this is a 78-year-old woman who since 07/03/2023 has been having some dizziness, some speech the faculty with confusion. Per the primary team [employer]KE J[employer]ER SUPERVISOR she stated that the patient has been having waxing and waning mentation as well as some hallucination. on 07/08/2023 as she had the T-max of 101.3 which resolved and again as stated above possible underlying UTI. Altered mental status: possible due to underlying urosepsis. 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 cardiology is on board We'll defer the rest of the medical management to primary team The plan was discussed with the N.P. from the primary team. Will continue to follow Time with Patient: Less than 30
--- NOTE | 2023-07-13 16:21 | P.PN ---
Subjective Progress Note Date: 07/13/23 78-year-old female was admitted the for dizziness. I'm unable to get Of history from the patient as it was really hard to wake the patient up she is quite lethargic. As per nursing staff patient was alert and oriented 3. Has been feeling weak for the few days and loss of appetite. There is no clear ev idence of infection urine is not significant abnormal although patient was started on Rocephin which will be continued for now chest x-ray did not show any pneumonia. CT of the head is within normal limits. Patient denied any shortness of breath is not hypoxic at this time. Apparently patient denied any dysuria or increased urinary urgency or frequency to the ER physician of the nursing staff. 07/10/2023 Reasons mentation has improved somewhat. She continues to remain lethargic though. Continues to have low blood sugar in the 50s despite dextrose treatment. Sodium is also up to 148 and renal function is worsening patient was started on D5 water at 75 mL per hour. Echocardiogram reveals normal LV function and mild MR. 07/11/2023 Patient is evaluated today in the medical floor. She is more awake as compared to yesterday however she is now not speaking and per nursing there was concern for some left sided weakness. Cardiology did evaluate the patient and felt that there was some paroxysmal atrial flutter/fibrillation patient has been started on eliquis pending further recommendations from neurology. Concern for stroke neurology consultation in place patient will have repeat brain CT today as well as carotid Doppler and lipid panel have been ordered. Patient remains on IV ceftriaxone empirically. Lasix remains on hold. She is being hydrated with D5 water at 75 mL/hr and sodium has normalized today down to 139. Her renal function is stable with a BUN of 25 and a creatinine of 0.90. The glucose is also improved. 07/12/2023 Patient is evaluated today sitting up in bed. More awake and alert than yesterday. No focal neurological deficits. However, patient remains confused and alert x 1. Thought we were in a kitchen. Remains on empiric antibiotics with IV ceftriaxone. Blood culture remains negative and procalcitonin level was normal. Sodium today improved to 141, Renal function normalized. Hemoglobin remains stable at 8.8. Patient remains in normal sinus rhythm with evidence of paroxysmal atrial fibrillation and patient was started on eliquis and pending neurology input at this time. Follow up brain CT reveals no acute bleed or mass effect, no interval change compared to previous. Mild chronic ischemic changes as above including; few tiny remote lacunar infarcts in the left basal ganglia, and mention of mild ischemic white matter demyelination. Neurology following. Carotid doppler reveals mild plaque in the carotid bifurcations but no significant stenosis based on peak systolic velocities and ratios. Antegrade flow in the vertebral arteries. 07/13/2023 Patient resting in bed today. Currently alert x 1 and seems to be hallucinating. Patients family friend in the room to see her today and stated last fan she complained of dizziness. She has had [address] and carotid doppler, neurology evaluation today recommending MRI and EEG. Patient remains on IV ceftriaxone for abnormal urine blood culture remains negative. Remains on eliquis. Review of Systems Constitutional: Denied any fatigue denied any fever. Cardio vascular: denied any chest pain, palpitations Gastrointestinal: denied any nausea, vomiting, diarrhea Pulmonary: Denied any shortness of breath cough Neurologic denied any new focal deficits All inpatient medications were reviewed and appropriate changes in these medications as dictated in the interval history and assessment and plan. PHYSICAL EXAMINATION: GENERAL: Sleeping not in any acute distress. alert x 1. Well developed, well nourished. HEENT: Pupils are round and equally reacting to light. EOMI. No scleral icterus. No conjunctival pallor. Normocephalic, atraumatic. No pharyngeal erythema. No thyromegaly. CARDIOVASCULAR: S1 and S2 present. No murmurs, rubs, or gallops. PULMONARY: Chest is clear to auscultation, no wheezing or crackles. ABDOMEN: Soft, nontender, nondistended, normoactive bowel sounds. No palpable organomegaly. MUSCULOSKELETAL: No joint swelling or deformity. EXTREMITIES: No cyanosis, clubbing, or pedal edema. NEUROLOGICAL: Diffuse weakness however equal patient is talking however confused today. Hallucinating. SKIN: Stage III sacral decubitus ulcers which doesn't appear to be infected Assessment and plan -Dizziness lethargy generalized weakness: most likely secondary to hypoglycemia patient was started on dextrose gtt; C-Peptide and insulin levels WNL. Need to rule out stroke. -Mild WINDY prerenal azotemia due to dehydration and poor oral intake, improved with IV fluids -Paroxysmal atrial fibrillation/atrial flutter started on eliquis for anticoagulation. -Generalized weakness: PT/OT consultation -Dysphagia likely due to AMS, speech therapy consultation. -Uninfected sacral decubitus ulcer unsure whether patient is bedbound, wound care following the patient recommending therahoney to the wound with saline moistened gauze and optifoam dressing. -Bilateral lower extremity chronic venous stasis ulcerations treated with absorptive silver gauze and debbie wrap to continue. -Bilateral lymphedema lasix will be held patient is being hydrated. -hyperkalemia secondary to potassium will use Lokelma, potassium has improved down to 4.6 DVT prophylaxis: eliquis GI prophylaxis: IV pepcid Plan Cardiology evaluation pending neurology input regarding anticoagulation as patient does have neuro deficits has been started on eliquis with further recommendations pending from neurology. AM cortisol level checked. Blood glucose improving while on D5 water. Patient will be continued on fluids. Speech therapy following and diet has been upgraded to dysphagia level 3 chopped 1:1 supervision and aspiration precautions. PT/OT and speech therapy consultation in place. Continue with local wound care. Replace electrolytes. Follow up labs in AM. Patient scheduled to undergo MRI and EEG tomorrow. The impression and plan of care has been dictated by Haylie Bernabe Nurse Practitioner as directed. Dr. Carmencita MD I have performed a history and physical examination and medical decision making of this patient, discussed the same with the dictator, and agree with the dictators assessment and plan as written, documented as a scribe. Based on total visit time, I have performed more than 50% of this visit. Objective - Vital Signs Vital signs: Vital Signs Temp 97.7 F 07/13/23 11:21 Pulse 60 07/13/23 14:05 Resp 20 07/13/23 11:21 BP 107/61 07/13/23 11:21 Pulse Ox 97 07/13/23 11:21 FiO2 Intake & Output 07/12/23 07/13/23 07/13/23 18:59 06:59 18:59 Intake Total 1435 Output Total 250 750 Balance 1185 -750 Weight 110 kg Intake: IV 5 Invasive Line 2 5 Intake, IV Titration 950 Amount Dextrose 5% in Water 1, 900 000 ml @ 75 mls/hr IV . [id number] ROXY Rx#:[id number] cefTRIAXone 1 gm In 50 Sodium Chloride 0.9% 50 ml @ 100 mls/hr IVPB Q24HR ROXY Rx#:[id number] Oral 480 Output: Urine 250 750 Uretheral (Rico) 250 750 Other: Voiding Method Indwelling Catheter Indwelling Catheter Indwelling Catheter # Bowel Movements 1 1 - Labs CBC & Chem 7: 07/12/23 07:21 07/12/23 07:21 Labs: Abnormal Lab Results - Last 24 Hours (Table) 07/12/23 Range/Units 16:30 Urine Appearance Cloudy H (Clear) Urine Blood Large H (Negative) Ur Leukocyte Esterase Large H (Negative) Urine RBC 137 H (0-5) /hpf Urine WBC 114 H (0-5) /hpf Urine WBC Clumps Moderate H (None) /hpf Urine Bacteria Rare H (None) /hpf Urine Mucus Rare H (None) /hpf Assessment and Plan Time with Patient: Less than 30
[2023-07-13 16:47] LABS: Glucose,Whole Blood 106 mg/dL (70-110)
[2023-07-13 20:25] LABS: Glucose,Whole Blood 109 mg/dL (70-110)
[2023-07-13] MEDS: LATANOPROST 0.005% OPHTH DROPS 2.5 ML BTL BOTH EYES SCH (20:28)
[2023-07-14 02:02] LABS: Glucose,Whole Blood 100 mg/dL (70-110)
[2023-07-14 06:07] LABS: Glucose,Whole Blood 92 mg/dL (70-110)
[2023-07-14] MEDS: FAMOTIDINE 20 MG/2 ML VIAL IV SCH (08:15)
[2023-07-14] MEDS: ATORVASTATIN 40 MG TAB PO SCH ×2 (08:16→12:33)
[2023-07-14] MEDS: APIXABAN 5 MG TAB PO SCH ×3 (08:16→19:33)
[2023-07-14] MEDS: DEXTROSE 5% IN WATER 1,000 ML IV SCH ×2 (08:16→19:33)
[2023-07-14] MEDS: DORZOLAMIDE-TIMOLOL 2.23%/0.68 10ML BTL BOTH EYES SCH ×2 (08:16→19:33)
[2023-07-14] MEDS: METOPROLOL SUCCINATE (ER) 25 MG TAB.ER.24H PO SCH ×2 (08:16→12:33)
[2023-07-14] MEDS: BRIMONIDINE TARTRATE 0.2% DROPS 5 ML BTL RIGHT EYE SCH ×2 (08:17→19:33)
[2023-07-14] MEDS: FLUOROMETHOLONE 0.1% OPHTH DROPS 5 ML BTL BOTH EYES SCH ×2 (08:17→19:32)
[2023-07-14 11:10] LABS: Glucose,Whole Blood 93 mg/dL (70-110)
[2023-07-14 12:14] LABS: African American GFR (CKD) 63 (>60 ml/min/1.73 sqM); Anion Gap 7 mmol/L; Calcium 8.6 mg/dL (8.4-10.2); Carbon Dioxide 26 mmol/L (22-30); Chloride 108 mmol/L (98-107); Glucose 92 mg/dL (74-99); Non-African American GFR(CKD) 55 (>60 ml/min/1.73 sqM); Potassium 4.2 mmol/L (3.5-5.1); Sodium 141 mmol/L (137-145)
--- NOTE | 2023-07-14 12:19 | MR ---
EXAMINATION TYPE: MR brain wo/w con DATE OF EXAM: 07/14/2023 COMPARISON: CT brain 07/11/2023 HISTORY: Speech difficulty, confusion TECHNIQUE: Multiplanar, multisequence images of the brain and brainstem is performed without and with IV contras t, utilizing 11 mL intravenous Gadavist . FINDINGS: Diffusion weighted images demonstrate no evidence of a recent infarct or other diffusion ab normality. There is mild generalized degenerative change. Numerous focal areas of abnormal signal sc attered throughout the cerebral hemispheres bilaterally and within the left cerebellum compatible wit h a nonspecific white matter changes. Most likely in the basis of remote microvascular ischemia. Midline structures demonstrate normal morphology. The craniocervical junction appears within normal limits. Post contrast images demonstrate no abnormal enhancement. The dural venous sinuses appear pa tent. Nasal septal deviation. Changes of chronic sinusitis and the globes are intact. Mild changes of chronic mastoiditis. IMPRESSION: 1. Degenerative and nonspecific white matter changes most typical of remote white matter ischemia.
[2023-07-14 12:36] LABS: Blood Urea Nitrogen 23 mg/dL (7-17)
--- NOTE | 2023-07-14 13:34 | P.PN ---
Subjective Progress Note Date: 07/14/23 History of present illness: This is a 78-year-old female patient who has altered mental status and is curr ently aphasic and therefore HPI was obtained from the chart and nursing staff. She apparently presented to the emergency department via EMS with complaints of poor appetite for a few days, significant dizziness and lower extremity weakness. He has been quite lethargic throughout her hospital stay. Prior to admission she is apparently been living alone at home and walks with a walker. There is no clear evidence of infection on admission. CT scan of the brain showed degenerative and remote ischemic change left parietal lobe stable from prior exam, no acute hemorrhage or mass effect. Asked to see the patient in consultation or possible atrial flutter, new onset. On review of telemetry it appears patient is having episodes of paroxysmal atrial fib/flutter, self terminating. By mouth to be asymptomatic but again patient has somewhat altered mental status although she is aphasic she is answering yes and no questions and denies palpitations. She denies any further dizziness. Cardiogram with Doppler study showed a normal LV systolic function with mild MR. Show evidence of anemia with a hemoglobin on admission of 9.2, down 8.2 this morning. On admission potassium was 6.0 with most recent 4.7. Labs this yesterday showed worsening renal function with a creatinine of 1.27 which was 0.92 on admission. Sodium was elevated at 146. Troponin was negative 1 and TSH is normal. Blood pressure has been relatively stable but quite elevated at 4 this morning at 187/77. She currently denies any discomfort or distress. She complains of lower extremity edema seems to be chronic. Denies any palpitations, chest pain or shortness of breath. She has no orthopnea or PND. 07/12/2023 She was seen and examined resting comfortably in bed. Mental status seems to be less altered. She is no longer aphasic. She is overall feeling well. She verbalizes feeling better. She is maintaining sinus mechanism. She's been initiated on Eliquis by primary. Vital signs are stable. 07/13 Patient is seen today in follow-up. 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 Heart rate is in the 70s, blood pressure 133/64, pulse ox 95% on room air. Telemetry is sinus rhythm. Patient has been started on eliquis during this hospitalization. She is not currently on a beta batsheva. 07/14 Patient has been in a sinus rhythm heart rate is in the 60s and 70s. Yesterday she was started on Toprol-XL 25 mg daily and she has been maintained on eliquis 5 mg twice daily. Patient remains confused, no new concerns. Patient is having MRI of the brain and EEG today. Physical examination: Gen: This is a 78-year-old female resting bed and appears to be in no acute distress. VS: reviewed HEENT: Head is atraumatic, normocephalic. Pupils equal, round. Sclerae is anicteric. NECK: Supple. No JVD. . LUNGS: Clear to auscultation. No wheezes or rhonchi. No intercostal retractions. HEART: Regular rate and rhythm. No murmur. ABDOMEN: Soft No tenderness. EXTREMITIES: No pedal edema. No calf tenderness. NEUROLOGICAL: Patient is awake, alert and oriented to person. Assessment: #1 new-onset paroxysmal atrial fib/flutter, converted to sinus rhythm #2 metabolic encephalopathy secondary to UTI, acute delirium with dementia per neurology #3 WINDY, resolved #4 hyperkalemia resolved 5 anemia 6 urinary tract infection Plan: Continue patient on eliquis 5 mg twice daily Continue patient on Toprol-XL 25 mg daily Nurse practitioner note has been reviewed, I agree with documented findings and plan of care. Patient was seen and examined. Objective - Vital Signs Vital signs: Vital Signs Temp 97.7 F 07/14/23 07:57 Pulse 72 07/14/23 07:57 Resp 18 07/14/23 07:58 BP 160/76 07/14/23 07:57 Pulse Ox 94 L 07/14/23 07:57 FiO2 Intake & Output 07/13/23 07/14/23 07/14/23 18:59 06:59 18:59 Intake Total 0 Output Total 1900 800 Balance -1900 -800 Weight 110 kg Intake: Oral 0 Output: Urine 1900 800 Other: Voiding Method Indwelling Catheter Indwelling Catheter Indwelling Catheter # Bowel Movements 3 - Labs CBC & Chem 7: 07/12/23 07:21 07/14/23 11:22 Labs: Microbiology - Last 24 Hours (Table) 07/08/23 15:00 Blood Culture - Final Blood 07/08/23 14:45 Blood Culture - Final Blood
--- NOTE | 2023-07-14 14:28 | P.PN ---
Subjective Progress Note Date: 07/14/23 78-year-old female was admitted the for dizziness. I'm unable to get Of history from the patient as it was really hard to wake the patient up she is quite lethargic. As per nursing staff patient was alert and oriented 3. Has been feeling weak for the few days and loss of appetite. There is no clear ev idence of infection urine is not significant abnormal although patient was started on Rocephin which will be continued for now chest x-ray did not show any pneumonia. CT of the head is within normal limits. Patient denied any shortness of breath is not hypoxic at this time. Apparently patient denied any dysuria or increased urinary urgency or frequency to the ER physician of the nursing staff. 07/10/2023 Reasons mentation has improved somewhat. She continues to remain lethargic though. Continues to have low blood sugar in the 50s despite dextrose treatment. Sodium is also up to 148 and renal function is worsening patient was started on D5 water at 75 mL per hour. Echocardiogram reveals normal LV function and mild MR. 07/11/2023 Patient is evaluated today in the medical floor. She is more awake as compared to yesterday however she is now not speaking and per nursing there was concern for some left sided weakness. Cardiology did evaluate the patient and felt that there was some paroxysmal atrial flutter/fibrillation patient has been started on eliquis pending further recommendations from neurology. Concern for stroke neurology consultation in place patient will have repeat brain CT today as well as carotid Doppler and lipid panel have been ordered. Patient remains on IV ceftriaxone empirically. Lasix remains on hold. She is being hydrated with D5 water at 75 mL/hr and sodium has normalized today down to 139. Her renal function is stable with a BUN of 25 and a creatinine of 0.90. The glucose is also improved. 07/12/2023 Patient is evaluated today sitting up in bed. More awake and alert than yesterday. No focal neurological deficits. However, patient remains confused and alert x 1. Thought we were in a kitchen. Remains on empiric antibiotics with IV ceftriaxone. Blood culture remains negative and procalcitonin level was normal. Sodium today improved to 141, Renal function normalized. Hemoglobin remains stable at 8.8. Patient remains in normal sinus rhythm with evidence of paroxysmal atrial fibrillation and patient was started on eliquis and pending neurology input at this time. Follow up brain CT reveals no acute bleed or mass effect, no interval change compared to previous. Mild chronic ischemic changes as above including; few tiny remote lacunar infarcts in the left basal ganglia, and mention of mild ischemic white matter demyelination. Neurology following. Carotid doppler reveals mild plaque in the carotid bifurcations but no significant stenosis based on peak systolic velocities and ratios. Antegrade flow in the vertebral arteries. 07/13/2023 Patient resting in bed today. Currently alert x 1 and seems to be hallucinating. Patients family friend in the room to see her today and stated last thursday she complained of dizziness. She has had [address] and carotid doppler, neurology evaluation today recommending MRI and EEG. Patient remains on IV ceftriaxone for abnormal urine blood culture remains negative. Remains on eliquis. 07/14/2023 Patient evaluated today resting in bed. Patient is lethargic arousable to sternal rub. Did get a dose of seroqul last night for some agitation. Underwent brain MRI today revealing degenerative and nonspecific white matter changes most typical of remote white matter ischemia. No evidence of recent infarct. Remains on IV ceftriaxone. Urine culture pending. Blood culture negative. EEG pending. Review of Systems Constitutional: Denied any fatigue denied any fever. Cardio vascular: denied any chest pain, palpitations Gastrointestinal: denied any nausea, vomiting, diarrhea Pulmonary: Denied any shortness of breath cough Neurologic denied any new focal deficits All inpatient medications were reviewed and appropriate changes in these medications as dictated in the interval history and assessment and plan. PHYSICAL EXAMINATION: GENERAL: Sleeping not in any acute distress. alert x 1. Well developed, well nourished. HEENT: Pupils are round and equally reacting to light. EOMI. No scleral icterus. No conjunctival pallor. Normocephalic, atraumatic. No pharyngeal erythema. No th yromegaly. CARDIOVASCULAR: S1 and S2 present. No murmurs, rubs, or gallops. PULMONARY: Chest is clear to auscultation, no wheezing or crackles. ABDOMEN: Soft, nontender, nondistended, normoactive bowel sounds. No palpable organomegaly. MUSCULOSKELETAL: No joint swelling or deformity. EXTREMITIES: No cyanosis, clubbing, or pedal edema. NEUROLOGICAL: Diffuse weakness however equal patient is talking however confused today. Lethargic. SKIN: Stage III sacral decubitus ulcers which doesn't appear to be infected Assessment and plan -Dizziness lethargy generalized weakness: most likely secondary to hypoglycemia patient was started on dextrose gtt; C-Peptide and insulin levels WNL. Need to r ule out stroke. -Mild WINDY prerenal azotemia due to dehydration and poor oral intake, improved with IV fluids -Altered mental status likely due to hospital acquired delirium -Paroxysmal atrial fibrillation/atrial flutter started on eliquis for anticoagulation. -Generalized weakness: PT/OT consultation -Dysphagia likely due to AMS, speech therapy consultation. -Uninfected sacral decubitus ulcer unsure whether patient is bedbound, wound care following the patient recommending therahoney to the wound with saline moistened gauze and optifoam dressing. -Bilateral lower extremity chronic venous stasis ulcerations treated with absorptive silver gauze and debbie wrap to continue. -Bilateral lymphedema lasix will be held patient is being hydrated. -hyperkalemia secondary to potassium will use Lokelma, potassium has improved down to 4.6 DVT prophylaxis: eliquis GI prophylaxis: IV pepcid Plan Cardiology evaluation pending neurology input regarding anticoagulation as patient does have neuro deficits has been started on eliquis with further recommendations pending from neurology. AM cortisol level checked. Blood glucose improving while on D5 water. Patient will be continued on fluids. Speech therapy following and diet has been upgraded to dysphagia level 3 chopped 1:1 supervision and aspiration precautions. PT/OT and speech therapy consultation in place. Continue with local wound care. Replace electrolytes. Follow up labs in AM. EEG pending, Seroquel PRN for agitation. The impression and plan of care has been dictated by Haylei Bernabe, Nurse Practitioner as directed. Dr. Carmencita MD I have performed a history and physical examination and medical decision making of this patient, discussed the same with the dictator, and agree with the dictators assessment and plan as written, documented as a scribe. Based on total visit time, I have performed more than 50% of this visit. Objective - Vital Signs Vital signs: Vital Signs Temp 97.3 F L 07/14/23 11:13 Pulse 62 07/14/23 11:13 Resp 18 07/14/23 11:13 BP 151/78 07/14/23 11:13 Pulse Ox 96 07/14/23 11:13 FiO2 Intake & Output 07/13/23 07/14/23 07/14/23 18:59 06:59 18:59 Intake Total 0 Output Total 1900 800 550 Balance -1900 -800 -550 Weight 110 kg Intake: Oral 0 Output: Urine 1900 800 550 Other: Voiding Method Indwelling Catheter Indwelling Catheter Indwelling Catheter # Bowel Movements 3 - Labs CBC & Chem 7: 07/12/23 07:21 07/14/23 11:22 Labs: Abnormal Lab Results - Last 24 Hours (Table) 07/14/23 Range/Units 11: Chloride 108 H (98-107) mmol/L BUN 23 H (7-17) mg/dL Microbiology - Last 24 Hours (Table) 07/08/23 15:00 Blood Culture - Final Blood 07/08/23 14:45 Blood Culture - Final Blood Assessment and Plan Time with Patient: Less than 30
--- NOTE | 2023-07-14 14:50 | P.PN ---
Subjective Progress Note Date: 07/14/23 We'll follow with the patient and she seems more confused today compared to yesterday. Objective - Vital Signs Vital signs: Vital Signs Temp 97.3 F L 07/14/23 11:13 Pulse 62 07/14/23 11:13 Resp 18 07/14/23 11:13 BP 151/78 07/14/23 11:13 Pulse Ox 96 07/14/23 11:13 FiO2 Intake & Output 07/13/23 07/14/23 07/14/23 18:59 06:59 18:59 Intake Total 0 Output Total 1900 800 550 Balance -1900 -800 -550 Weight 110 kg Intake: Oral 0 Output: Urine 1900 800 550 Other: Voiding Method Indwelling Catheter Indwelling Catheter Indwelling Catheter # Bowel Movements 3 - Exam General: Lying in bed and does not appear in acute distress. HENT: Supple neck. Neuro: The patient is severely drowsy and is awakeable to voice. She is not harsha balizing or following commands. No facial weakness. Motor: No spontaneous movement and not moving any extremities. - Labs CBC & Chem 7: 07/12/23 07:21 07/14/23 11:22 Labs: Abnormal Lab Results - Last 24 Hours (Table) 07/14/23 Range/Units 11: Chloride 108 H (98-107) mmol/L BUN 23 H (7-17) mg/dL Microbiology - Last 24 Hours (Table) 07/08/23 15:00 Blood Culture - Final Blood 07/08/23 14:45 Blood Culture - Final Blood Assessment and Plan Assessment: this is a 78-year-old woman who since 07/03/2023 has been having some dizziness, some speech the faculty with confusion. 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 on 07/08/2023 as she had the T-max of 101.3 which resolved and again as stated above possible underlying UTI. Altered mental status: possible due to underlying urosepsis. 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 I reviewed MRI and agree there is no acute or subacute ischemia and there is no enhancement. Pending Routine EEG Ordered urine culture Ammonia level: 11 if patient continues to have confusion in the workup is negative then consider lumbar puncture. cardiology is on board We'll defer the rest of the medical management to primary team The plan was discussed with the primary attending and N.P. Will continue to follow Time with Patient: Less than 30
--- NOTE | 2023-07-14 16:02 | CDI ---
Documentation Clarification Form Date: 07/14/2023 03:10:20 PM From: Gaby Lopez RN, CCDS Admit Date: 07/08/2023 05:21:00 PM Patient Name: Ashley Lang Visit Number: [id number] Discharge Date: ATTENTION: The Clinical Documentation Specialists (CDI) and [facility] Coding Staff appreciate your assistance in clarifying documentation. Please respond to the clarification below the line at the bottom and electronically sign. The CDI & [facility] Coding staff will review the response and follow-up if needed. Please note: Queries are made part of the Legal Health Record. If you have any questions, please contact the author of this message via ITS. Dr. Yarelis Tse Conflicting documentation has been found in the medical record. As attending physician, please provide clarification. 07/08 ED evaluation: impression: urinary tract infection 07/13 Neurology progress note altered mental status possible due to underlying urosepsis. 07/09 H/P and subsequent documentation: No clear evidence of UTI, stage III sacral decubitus ulcer which does not appear to be infected. Patient remains on Rocephin IV 07/14 Cardiology progress notes: metabolic encephalopathy secondary to UTI History/Risk Factors: Osteoarthritis (OA), Pneumonia, Vascular Disorder Clinical Indicators: 78-year-old female who presents to ED complaining of dizziness last 3 days. VS: (16:56 123/55 81 16 94.5 96% RA VS: ( 20:[address] VS (20:25) 116/46 110 20 101.3 92/5 RA Lactic acid 0.6 UA: Nitrite Positive Ur Leukocyte Negative, Urine bacteria - Many 07/08 Labs: WBC 4.1 HGB 9.2 k+ 6.0 CL 118 CO2 16 BUN 34 CR 0.92 GFR 60 BMI 43.0 07/12 UA: Nitrate negative, Ur Leukocyte Esterase-Large Urine WBC moderate, Urine bacteria Rare Treatment: Cardiac/Telemetry monitoring Rocephin 1,000MG IVP X2 07/08 Rocephin 2 GM IVPB Q 24 HRS 07/09-07/10 Rocephin 1GM IVPB Q 24 HRS 07/11-07/14 Neuro assessment per protocol Please clarify which diagnosis is most appropriate: [ ] Sepsis due to UTI [ ] Sepsis due to UTI ruled out [ ] Other (please specify) [ ] Unable to determine (Template Last Revised: November 2020) My impression as per my documentation MTDD
[2023-07-14 16:34] LABS: Glucose,Whole Blood 114 mg/dL (70-110)
[2023-07-14] MEDS: LATANOPROST 0.005% OPHTH DROPS 2.5 ML BTL BOTH EYES SCH (19:33)
[2023-07-14 20:04] LABS: Glucose,Whole Blood 130 mg/dL (70-110)
--- NOTE | 2023-07-14 23:04 | EEG ---
ELECTROENCEPHALOGRAM REPORT CLINICAL HISTORY: This is a 78-year-old woman with altered mental status. The video EEG is ordered to rule out any seizure or discharges. RELEVANT MEDICATIONS: The patient is not on any antiepileptic drugs. FINDINGS: The background consists of [id number] voltage of 9 hertz activity intermixed with diffuse nonrhythmic delta activity. There is no physiological stage 2 sleep architecture seen. There is no focal slowing. Interictal and ictal is none. ACTIVATION PROCEDURE: Photic stimulation did not evoke a posterior driving response. There is no abnormality during the photic stimulation. Hyperventilation is not performed. CLINICAL INTERPRETATION: This is an abnormal routine EEG. The background slowing is suggestive of moderate encephalopathy. Otherwise, there is no focal slowing, epileptiform discharge, or seizure on the EEG. Clinical correlation is recommended. MMTRAYL / RANJITN: [id number] / MTDD
[2023-07-15] MEDS ORDERED: diphenhydrAMINE 25 MG CAP ONE (00:06)
[2023-07-15 02:00] LABS: Glucose,Whole Blood 103 mg/dL (70-110)
[2023-07-15 05:49] LABS: Glucose,Whole Blood 107 mg/dL (70-110)
[2023-07-15] MEDS: METOPROLOL SUCCINATE (ER) 25 MG TAB.ER.24H PO SCH (09:01)
[2023-07-15] MEDS: FAMOTIDINE 20 MG/2 ML VIAL IV SCH (09:01)
[2023-07-15] MEDS: ATORVASTATIN 40 MG TAB PO SCH (09:01)
[2023-07-15] MEDS: DEXTROSE 5% IN WATER 1,000 ML IV SCH (09:01)
[2023-07-15] MEDS: LOSARTAN 25 MG TAB PO SCH (09:01)
[2023-07-15] MEDS: APIXABAN 5 MG TAB PO SCH ×2 (09:01→20:00)
[2023-07-15] MEDS: BRIMONIDINE TARTRATE 0.2% DROPS 5 ML BTL RIGHT EYE SCH ×2 (09:02→20:01)
[2023-07-15] MEDS: DORZOLAMIDE-TIMOLOL 2.23%/0.68 10ML BTL BOTH EYES SCH ×2 (09:02→20:01)
[2023-07-15] MEDS: FLUOROMETHOLONE 0.1% OPHTH DROPS 5 ML BTL BOTH EYES SCH ×2 (09:02→20:02)
--- NOTE | 2023-07-15 10:36 | P.PN ---
Subjective Progress Note Date: 07/15/23 History of present illness: This is a 78-year-old female patient who has altered mental status and is curr ently aphasic and therefore HPI was obtained from the chart and nursing staff. She apparently presented to the emergency department via EMS with complaints of poor appetite for a few days, significant dizziness and lower extremity weakness. He has been quite lethargic throughout her hospital stay. Prior to admission she is apparently been living alone at home and walks with a walker. There is no clear evidence of infection on admission. CT scan of the brain showed degenerative and remote ischemic change left parietal lobe stable from prior exam, no acute hemorrhage or mass effect. Asked to see the patient in consultation or possible atrial flutter, new onset. On review of telemetry it appears patient is having episodes of paroxysmal atrial fib/flutter, self terminating. By mouth to be asymptomatic but again patient has somewhat altered mental status although she is aphasic she is answering yes and no questions and denies palpitations. She denies any further dizziness. Cardiogram with Doppler study showed a normal LV systolic function with mild MR. Show evidence of anemia with a hemoglobin on admission of 9.2, down 8.2 this morning. On admission potassium was 6.0 with most recent 4.7. Labs this yesterday showed worsening renal function with a creatinine of 1.27 which was 0.92 on admission. Sodium was elevated at 146. Troponin was negative 1 and TSH is normal. Blood pressure has been relatively stable but quite elevated at 4 this morning at 187/77. She currently denies any discomfort or distress. She complains of lower extremity edema seems to be chronic. Denies any palpitations, chest pain or shortness of breath. She has no orthopnea or PND. 07/12/2023 She was seen and examined resting comfortably in bed. Mental status seems to be less altered. She is no longer aphasic. She is overall feeling well. She verbalizes feeling better. She is maintaining sinus mechanism. She's been initiated on Eliquis by primary. Vital signs are stable. 07/13 Patient is seen today in follow-up. 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 Heart rate is in the 70s, blood pressure 133/64, pulse ox 95% on room air. Telemetry is sinus rhythm. Patient has been started on eliquis during this hospitalization. She is not currently on a beta batsheva. 07/14 Patient has been in a sinus rhythm heart rate is in the 60s and 70s. Yesterday she was started on Toprol-XL 25 mg daily and she has been maintained on eliquis 5 mg twice daily. Patient remains confused, no new concerns. Patient is having MRI of the brain and EEG today. 07/15 Patient is seen today in follow-up. Patient remains in a sinus rhythm running in the 60s, blood pressure 145/74. Patient is maintained on Toprol-XL 25 mg daily and eliquis. Confusion is improving and worked up for encephalopathy rule out stroke. MRI performed yesterday did not show any signs of acute stroke. Echocardiogram performed on 07/09/2023 revealed normal left ventricular size and systolic function. Mild mitral regurgitation. Aortic sclerosis with no evidence of stenosis. Physical examination: Gen: This is a 78-year-old female resting bed and appears to be in no acute distress. VS: reviewed HEENT: Head is atraumatic, normocephalic. Pupils equal, round. Sclerae is anicteric. NECK: Supple. No JVD. . LUNGS: Clear to auscultation. No wheezes or rhonchi. No intercostal retractions. HEART: Regular rate and rhythm. No murmur. ABDOMEN: Soft No tenderness. EXTREMITIES: No pedal edema. No calf tenderness. NEUROLOGICAL: Patient is awake, alert and oriented to person. Assessment: #1 new-onset paroxysmal atrial fib/flutter, converted to sinus rhythm #2 metabolic encephalopathy secondary to UTI, acute delirium with dementia per neurology #3 WINDY, resolved #4 hyperkalemia resolved 5 anemia 6 urinary tract infection 7 hypertension Plan: Continue patient on eliquis 5 mg twice daily Continue patient on Toprol-XL 25 mg daily Start patient on losartan 25 mg daily Patient is cleared for discharge from cardiology and may follow up with Dr. Barraza in one to 2 weeks. Nurse practitioner note has been reviewed, I agree with documented findings and plan of care. Patient was seen and examined. Objective - Vital Signs Vital signs: Vital Signs Temp 98 F 07/15/23 04:00 Pulse 66 07/15/23 04:00 Resp 16 07/15/23 04:00 BP 145/74 07/15/23 04:00 Pulse Ox 99 07/15/23 04:00 FiO2 Intake & Output 07/14/23 07/15/23 07/15/23 18:59 06:59 18:59 Intake Total 328 Output Total 550 200 Balance -222 -200 Intake: Oral 328 Output: Urine 550 200 Other: Voiding Method Indwelling Catheter Indwelling Catheter - Labs CBC & Chem 7: 07/12/23 07:21 07/14/23 11:22 Labs: Abnormal Lab Results - Last 24 Hours (Table) 07/14/23 07/14/23 07/14/23 Range/Units 11: 16:33 20:02 Chloride 108 H (98-107) mmol/L BUN 23 H (7-17) mg/dL POC Glucose (mg/dL) 114 H 130 H (70-110) mg/dL
[2023-07-15 11:32] LABS: Glucose,Whole Blood 131 mg/dL (70-110)
--- NOTE | 2023-07-15 13:35 | P.PN ---
Subjective Progress Note Date: 07/15/23 I am following-up with patient and per primary team she is doing drastically better regarding her mentation. Patient states she feels better and denies of any headache. Objective - Vital Signs Vital signs: Vital Signs Temp 97.6 F 07/15/23 08:54 Pulse 58 L 07/15/23 08:54 Resp 16 07/15/23 08:54 BP 128/70 07/15/23 08:54 Pulse Ox 95 07/15/23 08:54 FiO2 Intake & Output 07/14/23 07/15/23 07/15/23 18:59 06:59 18:59 Intake Total 328 Output Total 550 200 Balance -222 -200 Intake: Oral 328 Output: Urine 550 200 Other: Voiding Method Indwelling Catheter Indwelling Catheter Indwelling Catheter - Exam General: Lying in bed and is not in acute distress. HENT: Supple neck. Neuro: The patient is awake, alert, oriented to self, time and stated she is in the hospital. She was able to name objects correctly (pen and watch). She is mildly to moderate slowly responding to questions. Is following simple commands. No facial weakness. No dysarthria. Motor: Moving all extremities above gravity. - Labs CBC & Chem 7: 07/12/23 07:21 07/14/23 11:22 Labs: Abnormal Lab Results - Last 24 Hours (Table) 07/14/23 07/14/23 07/15/23 Range/Units 16:33 20:02 11:28 POC Glucose (mg/dL) 114 H 130 H 131 H (70-110) mg/dL Assessment and Plan Assessment: this is a 78-year-old woman who since 07/03/2023 has been having some dizziness, some speech the faculty with confusion. 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 on 07/08/2023 as she had the T-max of 101.3 which resolved and again as stated above possible underlying UTI. Altered mental status: possible due to underlying urosepsis. MRI Brain is negative for acute or subacute ischemia stroke. Mentation is improving. 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 I reviewed MRI and agree there is no acute or subacute ischemia and there is no enhancement. Routine EEG: Is abnormal. The background slowing suggestive of moderate encephalopathy. Otherwise there is no focal slowing, epileptiform discharges or seizure on the EEG. Pending urine culture Ammonia level: 11 Since the patient's confusion is drastically better today compared to the last 2 days no need for a lumbar puncture from a neurologic perspective. cardiology is on board We'll defer the rest of the medical management to primary team The plan was discussed with the primary attending and N.P. Will continue to follow sporadically. Time with Patient: Less than 30
--- NOTE | 2023-07-15 15:11 | P.DS ---
Providers Date of admission: 07/08/23 17:21 Attending physician: Kelvin Green Consults: 07/10/23 09:48 Consult Physician Routine Consulting Provider: Ben Barraza Consult Reason/Comments: possible aflutter, new onset Do you want consulting provider notified?: Yes 07/11/23 09:51 Consult Physician Routine Consulting Provider: Yusuf Singh Consult Reason/Comments: Apashia Do you want consulting provider notified?: Already Contacted Primary care physician: Maye Scruggs Hospital Course: Final diagnosis -Dizziness lethargy generalized weakness: most likely secondary to hypoglycemia patient was started on dextrose gtt; C-Peptide and insulin levels WNL. Stroke ruled out -Mild WINDY prerenal azotemia due to dehydration and poor oral intake, improved with IV fluids -Altered mental status acute metabolic encephalopathy likely due to hospital acquired delirium and infection from UTI -Urinary tract infection with sepsis most probably the cause for the confusion. Stroke ruled out. -Paroxysmal atrial fibrillation/atrial flutter started on eliquis for anticoagulation. -Generalized weakness: PT/OT consultation -Dysphagia likely due to AMS, speech therapy consultation. -Uninfected sacral decubitus ulcer, POA therahoney to the wound with saline moistened gauze and optifoam dressing. -Bilateral lower extremity chronic venous stasis ulcerations treated with absorptive silver gauze and debbie wrap to continue. -Bilateral lymphedema lasix will be held patient is being hydrated. -hyperkalemia secondary to potassium will use Lokelma, potassium has improved down to 4.6 Discharge Disposition Patient is stable for discharge to subacute rehab. Patient will be continued on local wound care as above to the bilateral lower extremities with absorptive silver gauze and debbie wrap and also therahoney with saline moistened gauze and optifoam dressing to the sacral decub. Needs to follow up with [facility]. Recommend to follow up neurologist in 1 to 2 weeks on discharge. Follow up with cardiology in 2 weeks. Follow up with your PCP Dr. Maye Scruggs in 1 to 2 days. Continue course of oral antibiotics with oral ceftin BID for the next 3 days. Repeat labs in 2 to 3 days. Recommend Ensure TID with meals. Diet to remain at dysphagia level 3 chopped with 1:1 supervision and aspiration precautions. Hospital Course This is a 78-year-old female with history of lower extremity chronic venous stasis ulceration, lymphedema, arthritis who comes in with acute confusion. Per family Dash before admission patient had complained of dizziness is usually up and independent. Patient was lethargic on admission and not much arousable, hard to get a full history. As per nursing staff patient was alert and oriented 3. Has been feeling weak for the few days and loss of appetite. There is no clear evidence of infection however urinalysis was abnormal. CT scan of the brain showed degenerative and remote ischemic change left parietal lobe stable from prior exam, no acute hemorrhage or mass effect. Patient denied any shortness of breath is not hypoxic at this time. Apparently patient denied any dysuria or increased urinary urgency or frequency to the ER physician of the nursing staff. There was concern for EKG changes showing atrial fibrillation/atrial flutter new onset. Cardiology was consulted along with neurology for the AMS patient was admitted to the hospital. Was hypoglycemic and started on D5 water patient did clinically improve more awake alert with the correction of the hypoglycemia. Echocardiogram with Doppler study showed a normal LV systolic function with mild MR. Show evidence of anemia with a hemoglobin on admission of 9.2, down 8.2 this morning. On admission potassium was 6.0 with most recent 4.7, this was treated with lokelma. Cardiology started metoprolol patient remains in sinus rhythm at this time and was started on eliquis. Mentation waxing and waning and patient had full stroke work up with MRI showing degenerative and nonspecific white matter changes most typical of remote white matter ischemia. EEG is abnormal suggestive of moderate encephalopathy. Carotid doppler showing mild plaque bilaterally in the the carotid bifurcations but no significant stenosis. Stroke was ruled out. Patient was treated empirically with the IV ceftriaxone for likely UTI with features of sepsis. Blood culture has remained negative. Clinically today she is more awake and alert. no chest pain no shortness of breath. no focal neurological deficits noted today she is diffusely weak. She is alert x 3. Hemodynamically she is stable and will be discharged to rehab. Please see medication reconciliation for a list of current medication. Thank you for allowing us to participate in the care of this patient. The impression and plan of care has been dictated by Haylie Bernabe, Nurse Practitioner as directed. Dr. Carmencita MD I have performed a history and physical examination and medical decision making of this patient, discussed the same with the dictator, and agree with the dictators assessment and plan as written, documented as a scribe. Based on total visit time, I have performed more than 50% of this visit. Patient Condition at Discharge: Fair Plan - Discharge Summary Discharge Rx Participant: No New Discharge Prescriptions: New Apixaban [Eliquis] 5 mg PO BID tab Atorvastatin [Lipitor] 40 mg PO DAILY tab Metoprolol Succinate (ER) [Toprol XL] 25 mg PO DAILY tab cefUROXime axetiL [Ceftin] 500 mg PO BID 3 Days #6 tab Losartan [Cozaar] 25 mg PO DAILY tab QUEtiapine [SEROquel] 12.5 mg PO HS PRN tab PRN Reason: Agitation Continue Brimonidine Tartrate [Alphagan P 0.2% Ophth Soln] 1 drop RIGHT EYE BID Latanoprost Ophth [Xalatan 0.005%] 1 drop BOTH EYES HS Pantoprazole [Protonix] 40 mg PO DAILY Furosemide [Lasix] 40 mg PO DAILY Fluorometholone 0.1% Ophth Megan [Fml] 1 drop BOTH EYES BID Aspirin EC [Ecotrin Low Dose] 81 mg PO DAILY Potassium Chloride [Klor-Con M10] 10 meq PO DAILY Dorzolamide-Timol 2.23%/0.68% [Cosopt] 1 drop BOTH EYES BID Discharge Medication List Aspirin EC [Ecotrin Low Dose] 81 mg PO DAILY 01/27/23 [History] Brimonidine Tartrate [Alphagan P 0.2% Ophth Soln] 1 drop RIGHT EYE BID 01/27/23 [History] Fluorometholone 0.1% Ophth Megan [Fml] 1 drop BOTH EYES BID 01/27/23 [History] Latanoprost Ophth [Xalatan 0.005%] 1 drop BOTH EYES HS 01/27/23 [History] Potassium Chloride [Klor-Con M10] 10 meq PO DAILY 01/27/23 [History] Dorzolamide-Timol 2.23%/0.68% [Cosopt] 1 drop BOTH EYES BID 07/08/23 [History] Furosemide [Lasix] 40 mg PO DAILY 07/08/23 [History] Pantoprazole [Protonix] 40 mg PO DAILY 07/08/23 [History] Apixaban [Eliquis] 5 mg PO BID tab 07/15/23 [Rx] Atorvastatin [Lipitor] 40 mg PO DAILY tab 07/15/23 [Rx] Losartan [Cozaar] 25 mg PO DAILY tab 07/15/23 [Rx] Metoprolol Succinate (ER) [Toprol XL] 25 mg PO DAILY tab 07/15/23 [Rx] QUEtiapine [SEROquel] 12.5 mg PO HS PRN tab 07/15/23 [Rx] cefUROXime axetiL [Ceftin] 500 mg PO BID 3 Days #6 tab 07/15/23 [Rx] Follow up Appointment(s)/Referral(s): Ben Barraza MD [STAFF PHYSICIAN] - 1 Week Maye Scruggs MD [Primary Care Provider] - 1-2 days [facility] [NON-STAFF] - 1-2 Days Ambulatory/Diagnostic Orders: Basic Metabolic Panel [LAB.AMB] Time Frame: 3 Days, Location: None Selected Complete Blood Count w/diff [LAB.AMB] Location: None Selected Activity/Diet/Wound Care/Special Instructions: Recommend to follow up neurologist in 1 to 2 weeks on discharge. Follow up with cardiology in 2 weeks Follow up with your PCP Dr. Maye Scruggs in 1 to 2 days Repeat labs in 2 to 3 days Continue course of oral antibiotics with oral ceftin BID for the next 3 days Continue with local wound care to the Sacrum: Apply honey alginate, saline moisten gauze and sacral border foam. Miller. Lower extremities: apply absorptive silver, rolled gauze and debbie wrap in figure 8 design for compression. Discharge Disposition: TRANSFER TO SNF/ECF
[2023-07-15 16:30] LABS: Glucose,Whole Blood 127 mg/dL (70-110)
[2023-07-15 20:00] LABS: Glucose,Whole Blood 117 mg/dL (70-110)
[2023-07-15] MEDS: LATANOPROST 0.005% OPHTH DROPS 2.5 ML BTL BOTH EYES SCH (20:01)
[2023-07-16 02:00] LABS: Glucose,Whole Blood 87 mg/dL (70-110)
[2023-07-16] MEDS: DEXTROSE 5% IN WATER 1,000 ML IV SCH ×2 (02:07→09:09)
[2023-07-16 05:55] LABS: Glucose,Whole Blood 120 mg/dL (70-110)
[2023-07-16 08:17] LABS: African American GFR (CKD) 52 (>60 ml/min/1.73 sqM); Anion Gap 6 mmol/L; Blood Urea Nitrogen 34 mg/dL (7-17); Calcium 8.5 mg/dL (8.4-10.2); Carbon Dioxide 26 mmol/L (22-30); Chloride 108 mmol/L (98-107); Glucose 91 mg/dL (74-99); Magnesium 2.2 mg/dL (1.6-2.3); Non-African American GFR(CKD) 45 (>60 ml/min/1.73 sqM); Potassium 4.5 mmol/L (3.5-5.1); Sodium 140 mmol/L (137-145)
[2023-07-16 08:26] LABS: Anisocytosis Slight; Basophils % (A) 0 %; Eosinophils # (A) 0.1 k/uL (0-0.7); Eosinophils % (A) 2 %; HCT 26.4 % (34.0-46.0); HGB 8.4 gm/dL (11.4-16.0); Hypochromasia Marked; Lymphocytes # (A) 1.1 k/uL (1.0-4.8); Lymphocytes % (A) 17 %; MCH 29.7 pg (25.0-35.0); MCHC 31.7 g/dL (31.0-37.0); MCV 93.9 fL (80.0-100.0); Macrocytosis Slight; Mean Platelet Volume 8.6; Monocytes # (A) 0.4 k/uL (0-1.0); Monocytes % (A) 6 %; Neutrophils # (A) 4.9 k/uL (1.3-7.7); Neutrophils % (A) 73 %; Platelet Count 234 k/uL (150-450); RBC 2.81 m/uL (3.80-5.40); RDW 18.4 % (11.5-15.5); WBC 6.7 k/uL (3.8-10.6)
[2023-07-16] MEDS: ATORVASTATIN 40 MG TAB PO SCH (09:01)
[2023-07-16] MEDS: FAMOTIDINE 20 MG/2 ML VIAL IV SCH (09:01)
[2023-07-16] MEDS: APIXABAN 5 MG TAB PO SCH (09:01)
[2023-07-16] MEDS: LOSARTAN 25 MG TAB PO SCH (09:01)
[2023-07-16] MEDS: METOPROLOL SUCCINATE (ER) 25 MG TAB.ER.24H PO SCH (09:01)
[2023-07-16] MEDS: FLUOROMETHOLONE 0.1% OPHTH DROPS 5 ML BTL BOTH EYES SCH (09:02)
[2023-07-16] MEDS: BRIMONIDINE TARTRATE 0.2% DROPS 5 ML BTL RIGHT EYE SCH (09:02)
[2023-07-16] MEDS: DORZOLAMIDE-TIMOLOL 2.23%/0.68 10ML BTL BOTH EYES SCH (09:02)
[2023-07-16 11:19] LABS: Glucose,Whole Blood 107 mg/dL (70-110)
--- NOTE | 2023-07-16 12:07 | P.PN ---
Subjective Progress Note Date: 07/16/23 I am following-up with patient and she feels she is doing well. Denies of headache. Her confusion continues to be better compared to couple days ago. Objective - Vital Signs Vital signs: Vital Signs Temp 98.3 F 07/16/23 08:00 Pulse 71 07/16/23 11:52 Resp 18 07/16/23 08:00 BP 124/56 07/16/23 08:00 Pulse Ox 96 07/16/23 08:00 FiO2 Intake & Output 07/15/23 07/16/23 07/16/23 18:59 06:59 18:59 Intake Total 240 Output Total 800 220 Balance -800 240 -220 Weight 110 kg Intake: Oral 240 Output: Urine 800 220 Other: Voiding Method Indwelling Catheter Indwelling Catheter Indwelling Catheter # Bowel Movements 1 - Exam General: Lying in bed and is not in acute distress. HENT: Supple neck. Neuro: The patient is awake, alert, oriented to self, time and stated she is in the hospital. She was able to name objects correctly (pen and watch). She is mildly to moderate slowly responding to questions. Is following simple commands. No facial weakness. No dysarthria. Motor: Moving all extremities above gravity. - Labs CBC & Chem 7: 07/16/23 07:20 07/16/23 07:20 Labs: Abnormal Lab Results - Last 24 Hours (Table) 07/15/23 07/15/23 07/16/23 Range/Units 16:29 19:58 05:54 RBC (3.80-5.40) m/uL Hgb (11.4-16.0) gm/dL Hct (34.0-46.0) % RDW (11.5-15.5) % Chloride (98-107) mmol/L BUN (7-17) mg/dL Creatinine (0.52-1.04) mg/dL POC Glucose (mg/dL) 127 H 117 H 120 H (70-110) mg/dL 07/16/23 07/16/23 Range/Units 07:20 07:20 RBC 2.81 L (3.80-5.40) m/uL Hgb 8.4 L (11.4-16.0) gm/dL Hct 26.4 L (34.0-46.0) % RDW 18.4 H (11.5-15.5) % Chloride 108 H (98-107) mmol/L BUN 34 H (7-17) mg/dL Creatinine 1.15 H (0.52-1.04) mg/dL POC Glucose (mg/dL) (70-110) mg/dL Microbiology - Last 24 Hours (Table) 07/13/23 16:35 Urine Culture - Final Urine,Catheterized Barbara albicans Assessment and Plan Assessment: this is a 78-year-old woman who since 07/03/2023 has been having some dizziness, some speech the faculty with confusion. Per the primary team PROFESSOR OF PHILOSOPHY she stated that the patient has been having waxing and waning mentation as well as some hallucination. on 07/08/2023 as she had the T-max of 101.3 which resolved and again as stated above possible underlying UTI. Altered mental status: possible due to underlying urosepsis. MRI Brain is negative for acute or subacute ischemia stroke. Mentation is improving. 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 I reviewed MRI and agree there is no acute or subacute ischemia and there is no enhancement. Routine EEG: Is abnormal. The background slowing suggestive of moderate encephalopathy. Otherwise there is no focal slowing, epileptiform discharges or seizure on the EEG. Urine culture: Candidal albicans. Ammonia level: 11 Since the patient's confusion is drastically better today compared to the last 2 days no need for a lumbar puncture from a neurologic perspective. cardiology is on board We'll defer the rest of the medical management to primary team There is no further neurological work-up. Will sign off. Please reconsult if any further concerns. Time with Patient: Less than 30
[2023-07-16 12:24] VITALS: BP 140/65; PULSE 98; RESP 17; TEMP 98.6
== END 2023-07-16 14:20 | DRG 871 ==
LOC: EC 12:08 → 5NMEDONC 17:21 → 3SCARD 20:46
PROVIDERS: ADMIT Hospitalist; ATTEND Hospitalist
PROC: 4A10X4Z Monitoring of Central Nervous Electrical Activity, External Approach (ICD-10-PCS; principal; 2023-07-14)
DX: A41.9 Sepsis, unspecified organism (principal); G93.41 Metabolic encephalopathy; L89.153 Pressure ulcer of sacral region, stage 3; R65.21 Severe sepsis with septic shock; N39.0 Urinary tract infection, site not specified; I87.333 Chronic venous hypertension (idiopathic) with ulcer and inflammation of bilateral lower extremity; F05 Delirium due to known physiological condition; I69.354 Hemiplegia and hemiparesis following cerebral infarction affecting left non-dominant side; I48.92 Unspecified atrial flutter; R47.01 Aphasia; N17.9 Acute kidney failure, unspecified; E11.649 Type 2 diabetes mellitus with hypoglycemia without coma; I10 Essential (primary) hypertension; L89.312 Pressure ulcer of right buttock, stage 2; E87.5 Hyperkalemia; L89.322 Pressure ulcer of left buttock, stage 2; I48.0 Paroxysmal atrial fibrillation; I89.0 Lymphedema, not elsewhere classified; R13.10 Dysphagia, unspecified; F03.90 Unspecified dementia, unspecified severity, without behavioral disturbance, psychotic disturbance, mood disturbance, and anxiety; I87.8 Other specified disorders of veins; I34.0 Nonrheumatic mitral (valve) insufficiency; I87.329 Chronic venous hypertension (idiopathic) with inflammation of unspecified lower extremity; D64.9 Anemia, unspecified; E86.0 Dehydration; I70.0 Atherosclerosis of aorta; I65.29 Occlusion and stenosis of unspecified carotid artery; Z79.01 Long term (current) use of anticoagulants; Z79.82 Long term (current) use of aspirin; Z79.899 Other long term (current) drug therapy; Z98.42 Cataract extraction status, left eye; Z98.41 Cataract extraction status, right eye; Z96.1 Presence of intraocular lens; Z98.51 Tubal ligation status; Z96.653 Presence of artificial knee joint, bilateral; Z87.01 Personal history of pneumonia (recurrent); Z96.643 Presence of artificial hip joint, bilateral
CPT/HCPCS: 36415; 70450; 70553; 71046; 80048; 80053; 80061; 81001; 82140; 82533; 82607; 82728; 82746; 83525; 83540; 83550; 83605; 83735; 84145; 84295; 84443; 84484; 84681; 85025; 85027; 87040; 87086; 93005; 93306; 93880; 94760; 95816; 96361; 96374; 99285

== ENCOUNTER 2023-08-30 12:11 | Inpatient (IN) | payer MEDICARE, OTHER ==
--- NOTE | 2023-08-30 13:07 | ED ---
Weakness HPI - General Chief complaint: Weakness Stated complaint: weakness Time Seen by Provider: 08/30/23 12:16 Source: patient, EMS, RN notes reviewed Mode of arrival: EMS Limitations: physical limitation - History of Present Illness Initial comments: 78-year-old female presents emergency department via EMS chief complaint weakness. Patient states she was showering when she felt very weak and states that she had a sit down. Family is unable to get her up and EMS arrived. Patient recently was at [facility] 2 weeks ago and signed herself out during the course a rehab. She denies any chest pain shortness breath headache or dizziness she does state that she has increasing leg swelling and weeping from her lower extremities. Patient states she is on a diuretic. Patient denies any focal weakness states he just generalized over all week - Related Data Home Medications Medication Instructions Recorded Confirmed Brimonidine Tartrate [Alphagan P 1 drop RIGHT EYE BID 01/27/23 08/30/23 0.2% Ophth Soln] Fluorometholone 0.1% Ophth Megan 1 drop BOTH EYES BID 01/27/23 08/30/23 [Fml] Dorzolamide-Timol 2.23%/0.68% 1 drop BOTH EYES BID 07/08/23 08/30/23 [Cosopt] Furosemide [Lasix] 40 mg PO DAILY 07/08/23 08/30/23 Albuterol Inhaler [Ventolin Hfa 1 - 2 puff INHALATION RT-TID PRN 08/30/23 08/30/23 Inhaler] Ferrous Sulfate [Iron (65 MG 325 mg PO DAILY 08/30/23 08/30/23 Elemental)] Losartan [Cozaar] 25 mg PO DAILY 08/30/23 08/30/23 Omeprazole 20 mg PO AC-BRKFST 08/30/23 08/30/23 Previous Rx's Medication Instructions Recorded Apixaban [Eliquis] 5 mg PO BID tab 07/15/23 Atorvastatin [Lipitor] 40 mg PO DAILY tab 07/15/23 Metoprolol Succinate (ER) [Toprol 25 mg PO DAILY tab 07/15/23 XL] Triamcinolone 0.1% Cream [Kenalog 1 applic TOPICAL BID each 09/04/23 0.1% Cream] Allergies Allergy/AdvReac Type Severity Reaction Status Date / Time No Known Allergies Allergy Verified 07/08/23 12:33 Review of Systems ROS Statement: Those systems with pertinent positive or pertinent negative responses have been documented in the HPI. ROS Other: All systems not noted in ROS Statement are negative. Past Medical History Past Medical History: Osteoarthritis (OA), Pneumonia, Vascular Disorder Additional Past Medical History / Comment(s): lower leg edema History of Any Multi-Drug Resistant Organisms: None Reported Past Surgical History: Appendectomy, Joint Replacement, Tubal Ligation Additional Past Surgical History / Comment(s): madeline hip and knees total replacement; cat sx with lens implants both eyes Past Anesthesia/Blood Transfusion Reactions: No Reported Reaction Past Psychological History: No Psychological Hx Reported Smoking Status: Never smoker Past Alcohol Use History: None Reported Past Drug Use History: None Reported - Past Family History Father Additional Family Medical History / Comment(s): PASSED OF OLD AGE Mother Additional Family Medical History / Comment(s): PASSED OF OLD AGE General Exam Limitations: physical limitation General appearance: alert, in no apparent distress Head exam: Present: atraumatic, normocephalic, normal inspection Eye exam: Present: normal appearance, PERRL, EOMI. Absent: scleral icterus, conjunctival injection, periorbital swelling ENT exam: Present: normal exam, mucous membranes moist Neck exam: Present: normal inspection. Absent: tenderness, meningismus, ly mphadenopathy Respiratory exam: Present: normal lung sounds bilaterally. Absent: respiratory distress, wheezes, rales, rhonchi, stridor Cardiovascular Exam: Present: regular rate, normal rhythm, normal heart sounds. Absent: systolic murmur, diastolic murmur, rubs, gallop, clicks Extremities exam: Present: pedal edema Neurological exam: Present: alert, oriented X3, CN II-XII intact, reflexes norm al. Absent: motor sensory deficit Course Vital Signs 08/30/23 08/30/23 08/30/23 12:13 15:44 17:47 Pulse Rate 68 61 58 L Respiratory 18 18 18 Rate Blood Pressure 146/73 154/84 144/74 O2 Sat by Pulse 98 97 97 Oximetry EKG Findings - EKG Comments: EKG Findings:: EKG performed at 12:21 sinus rhythm with rate of 60 [place] interval 207/95 QT/QTc 443/445 - EKG Results: EKG: interpreted by REBEKAH Medical Decision Making - Medical Decision Making Was pt. sent in by a medical professional or institution (TANMAY Moscoso, BIRDCAGE ASSEMBLER, urgent care, hospital, or shelter...) When possible be specific @ -No Did you speak to anyone other than the patient for history (EMS, parent, family, police, friend...)? What history was obtained from this source @ -No Did you review nursing and triage notes (agree or disagree)? Why? @ -I reviewed and agree with nursing and triage notes Were old charts reviewed (outside hosp., previous admission, EMS record, old EKG, old radiological studies, urgent care reports/EKG's, shelter records)? Report findings @ -No old charts were reviewed Differential Diagnosis (chest pain, altered mental status, abdominal pain women, abdominal pain men, vaginal bleeding, weakness, fever, dyspnea, syncope, headache, dizziness, GI bleed, back pain, seizure, CVA, palpatations, mental health, musculoskeletal)? @ -Differential Weakness: Hypoglycemia, shock, sepsis, hyponatremia, anemia, infection, TX, ETOH, adverse medicine reaction, overdose, stroke, this is not meant to be an all-inclusive list. EKG interpreted by me (3pts min.). @ -As above X-rays interpreted by me (1pt min.). @ -Chest x-ray shows no acute process CT interpreted by me (1pt min.). @ -None done U/S interpreted by me (1pt. min.). @ -None done What testing was considered but not performed or refused? (CT, X-rays, U/S, labs)? Why? @ -None What meds were considered but not given or refused? Why? @ -None Did you discuss the management of the patient with other professionals (professionals i.e. TANMAY Moscoso, BIRDCAGE ASSEMBLER, lab, RT, psych nurse, psychotherapist social worker, public health teacher, teacher, security control room officer, behavioral health case manager)? Give summary @ -EMH for admission secondary to increasing weakness, unable to ambulate Was smoking cessation discussed for >3mins.? @ -No Was critical care preformed (if so, how long)? @ -No Were there social determinants of health that impacted care today? How? (Homelessness, low income, unemployed, alcoholism, drug addiction, transportation, low edu. Level, literacy, decrease access to med. care, long-term, rehab)? @ -No Was there de-escalation of care discussed even if they declined (Discuss DNR or withdrawal of care, Hospice)? DNR status @ -No What co-morbidities impacted this encounter? (DM, HTN, Smoking, COPD, CAD, Cancer, CVA, ARF, Chemo, Hep., AIDS, mental health diagnosis, sleep apnea, morbid obesity)? @ -None Was patient admitted / discharged? Hospital course, mention meds given and route, prescriptions, significant lab abnormalities, going to OR and other pertinent info. @ -[Admitted patient's been having persistent worsening weakness patient is unable to ambulate after a fall. Patient be admitted for possible rehab, placement. Drug Therapy requiring intensive monitoring for toxicity (Heparin, Nitro, Insulin, Cardizem)? @ -No Were any procedures done? @ -No Diagnosis/symptom? @ -Weakness, falls, unable to ambulate Acute, or Chronic, or Acute on Chronic? @ -Acute Uncomplicated (without systemic symptoms) or Complicated (systemic symptoms)? @ -Uncomplicated Side effects of treatment? @ -No Exacerbation, Progression, or Severe Exacerbation? @ -No Poses a threat to life or bodily function? How? (Chest pain, [place], TX, pneumonia, PE, COPD, DKA, ARF, appy, cholecystitis, CVA, Diverticulitis, Homicidal, Suicidal, threat to staff... and all critical care pts) @ -No - Lab Data Result diagrams: 09/03/23 12:24 09/03/23 12:24 Lab Results 08/30/23 08/30/23 08/30/23 Range/Units 12:37 12:37 12:37 WBC 4.6 (3.8-10.6) k/uL RBC 2.76 L (3.80-5.40) m/uL Hgb 8.3 L (11.4-16.0) gm/dL Hct 26.7 L (34.0-46.0) % MCV 96.8 (80.0-100.0) fL MCH 29.9 (25.0-35.0) pg MCHC 30.9 L (31.0-37.0) g/dL RDW 17.0 H (11.5-15.5) % Plt Count 135 L (150-450) k/uL MPV 8.6 Immature Gran % (Auto) % Absolute Nucleated RBC % Neutrophils % 86 % Lymphocytes % 10 % Monocytes % 3 % Eosinophils % 0 % Basophils % 0 % Immature Gran # (0.00-0.04) X 10*3/uL Neutrophils # 3.9 (1.3-7.7) k/uL Lymphocytes # 0.4 L (1.0-4.8) k/uL Monocytes # 0.1 (0-1.0) k/uL Eosinophils # 0.0 (0-0.7) k/uL Basophils # 0.0 (0-0.2) k/uL NRBC/100 WBC Diff (0.00-0.01) X 10*3/uL Hypochromasia Marked Anisocytosis Slight Macrocytosis ESR (0-30) mm/Hr PT 11.5 (10.0-12.5) sec INR 1.1 (<1.2) APTT 31.0 H (22.0-30.0) sec Sodium (137-145) mmol/L Potassium (3.5-5.1) mmol/L Chloride (98-107) mmol/L Carbon Dioxide (22-30) mmol/L Anion Gap mmol/L BUN (7-17) mg/dL Creatinine (0.52-1.04) mg/dL Est GFR (CKD-EPI) (>=60) Est GFR (CKD-EPI)AfAm (>60 ml/min/1.73 sqM) Est GFR (CKD-EPI)NonAf (>60 ml/min/1.73 sqM) BUN/Creatinine Ratio (12.00-20.00) Ratio Glucose (74-99) mg/dL POC Glucose (mg/dL) (70-110) mg/dL POC Glu Clinic Clerk ID Plasma Lactic Acid Shailesh (0.7-2.0) mmol/L Calcium (8.4-10.2) mg/dL Phosphorus (2.5-4.5) mg/dL Magnesium (1.6-2.3) mg/dL Total Bilirubin (0.2-1.3) mg/dL AST (14-36) U/L ALT (4-34) U/L Alkaline Phosphatase (38-126) U/L Troponin I (0.000-0.034) ng/mL NT-Pro-B Natriuret Pep pg/mL Total Protein (6.3-8.2) g/dL Albumin (3.5-5.0) g/dL Globulin (1.6-3.3) g/dL Albumin/Globulin Ratio (1.60-3.17) Ratio Procalcitonin (0.02-0.09) ng/mL Urine Color Colorless Urine Appearance Clear (Clear) Urine pH 5.0 (5.0-8.0) Ur Specific [place] 1.021 (1.001-1.035) Urine Protein Trace H (Negative) Urine Glucose (UA) Negative (Negative) Urine Ketones Negative (Negative) Urine Blood Negative (Negative) Urine Nitrite Negative (Negative) Urine Bilirubin Negative (Negative) Urine Urobilinogen <2.0 (<2.0) mg/dL Ur Leukocyte Esterase Negative (Negative) Ur Random Creatinine mg/dL Influenza Type A (PCR) (Not Detectd) Influenza Type B (PCR) (Not Detectd) RSV (PCR) (Not Detectd) SARS-CoV-2 (PCR) (Not Detectd) 08/30/23 08/30/23 08/30/23 Range/Units 12:37 12:37 12:37 WBC (3.8-10.6) k/uL RBC (3.80-5.40) m/uL Hgb (11.4-16.0) gm/dL Hct (34.0-46.0) % MCV (80.0-100.0) fL MCH (25.0-35.0) pg MCHC (31.0-37.0) g/dL RDW (11.5-15.5) % Plt Count (150-450) k/uL MPV Immature Gran % (Auto) % Absolute Nucleated RBC % Neutrophils % % Lymphocytes % % Monocytes % % Eosinophils % % Basophils % % Immature Gran # (0.00-0.04) X 10*3/uL Neutrophils # (1.3-7.7) k/uL Lymphocytes # (1.0-4.8) k/uL Monocytes # (0-1.0) k/uL Eosinophils # (0-0.7) k/uL Basophils # (0-0.2) k/uL NRBC/100 WBC Diff (0.00-0.01) X 10*3/uL Hypochromasia Anisocytosis Macrocytosis ESR (0-30) mm/Hr PT (10.0-12.5) sec INR (<1.2) APTT (22.0-30.0) sec Sodium 144 (137-145) mmol/L Potassium 5.3 H (3.5-5.1) mmol/L Chloride 115 H (98-107) mmol/L Carbon Dioxide 18 L (22-30) mmol/L Anion Gap 11 mmol/L BUN 35 H (7-17) mg/dL Creatinine 0.73 (0.52-1.04) mg/dL Est GFR (CKD-EPI) (>=60) Est GFR (CKD-EPI)AfAm >90 (>60 ml/min/1.73 sqM) Est GFR (CKD-EPI)NonAf 79 (>60 ml/min/1.73 sqM) BUN/Creatinine Ratio (12.00-20.00) Ratio Glucose 64 L (74-99) mg/dL POC Glucose (mg/dL) (70-110) mg/dL POC Glu Clinic Clerk ID Plasma Lactic Acid Shailesh 0.7 (0.7-2.0) mmol/L Calcium 9.4 (8.4-10.2) mg/dL Phosphorus 3.6 (2.5-4.5) mg/dL Magnesium 2.2 (1.6-2.3) mg/dL Total Bilirubin 0.6 (0.2-1.3) mg/dL AST 37 H (14-36) U/L ALT 45 H (4-34) U/L Alkaline Phosphatase 127 H (38-126) U/L Troponin I <0.012 (0.000-0.034) ng/mL NT-Pro-B Natriuret Pep 647 pg/mL Total Protein 7.0 (6.3-8.2) g/dL Albumin 3.5 (3.5-5.0) g/dL Globulin (1.6-3.3) g/dL Albumin/Globulin Ratio (1.60-3.17) Ratio Procalcitonin (0.02-0.09) ng/mL Urine Color Urine Appearance (Clear) Urine pH (5.0-8.0) Ur Specific [place] (1.001-1.035) Urine Protein (Negative) Urine Glucose (UA) (Negative) Urine Ketones (Negative) Urine Blood (Negative) Urine Nitrite (Negative) Urine Bilirubin (Negative) Urine Urobilinogen (<2.0) mg/dL Ur Leukocyte Esterase (Negative) Ur Random Creatinine mg/dL Influenza Type A (PCR) (Not Detectd) Influenza Type B (PCR) (Not Detectd) RSV (PCR) (Not Detectd) SARS-CoV-2 (PCR) (Not Detectd) 08/30/23 08/31/23 08/31/23 Range/Units 12:37 05:30 05:30 WBC 4.69 (3.8-10.6) k/uL RBC 2.57 L (3.80-5.40) m/uL Hgb 7.4 L (11.4-16.0) gm/dL Hct 24.8 L (34.0-46.0) % MCV 96.5 (80.0-100.0) fL MCH 28.8 (25.0-35.0) pg MCHC 29.8 L (31.0-37.0) g/dL RDW 18.1 H (11.5-15.5) % Plt Count 118 L (150-450) k/uL MPV 10.7 Immature Gran % (Auto) 0.20 % Absolute Nucleated RBC 0 % Neutrophils % 78.2 % Lymphocytes % 12.2 % Monocytes % 9.2 % Eosinophils % 0.2 % Basophils % 0 % Immature Gran # 0.01 (0.00-0.04) X 10*3/uL Neutrophils # 3.67 (1.3-7.7) k/uL Lymphocytes # 0.57 L (1.0-4.8) k/uL Monocytes # 0.43 (0-1.0) k/uL Eosinophils # 0.01 L (0-0.7) k/uL Basophils # 0 (0-0.2) k/uL NRBC/100 WBC Diff 0 (0.00-0.01) X 10*3/uL Hypochromasia Anisocytosis Macrocytosis ESR (0-30) mm/Hr PT (10.0-12.5) sec INR (<1.2) APTT (22.0-30.0) sec Sodium 144 (137-145) mmol/L Potassium 5.7 H (3.5-5.1) mmol/L Chloride 115 H (98-107) mmol/L Carbon Dioxide 21.5 L (22-30) mmol/L Anion Gap 7.50 mmol/L BUN 35.2 H (7-17) mg/dL Creatinine 0.9 (0.52-1.04) mg/dL Est GFR (CKD-EPI) 65 (>=60) Est GFR (CKD-EPI)AfAm (>60 ml/min/1.73 sqM) Est GFR (CKD-EPI)NonAf (>60 ml/min/1.73 sqM) BUN/Creatinine Ratio 39.11 H (12.00-20.00) Ratio Glucose 90 (74-99) mg/dL POC Glucose (mg/dL) (70-110) mg/dL POC Glu Clinic Clerk ID Plasma Lactic Acid Shailesh (0.7-2.0) mmol/L Calcium 9.5 (8.4-10.2) mg/dL Phosphorus (2.5-4.5) mg/dL Magnesium (1.6-2.3) mg/dL Total Bilirubin 0.3 (0.2-1.3) mg/dL AST 26 (14-36) U/L ALT 37 (4-34) U/L Alkaline Phosphatase 113 (38-126) U/L Troponin I (0.000-0.034) ng/mL NT-Pro-B Natriuret Pep pg/mL Total Protein 6.2 (6.3-8.2) g/dL Albumin 3.3 L (3.5-5.0) g/dL Globulin 2.9 (1.6-3.3) g/dL Albumin/Globulin Ratio 1.14 L (1.60-3.17) Ratio Procalcitonin (0.02-0.09) ng/mL Urine Color Urine Appearance (Clear) Urine pH (5.0-8.0) Ur Specific [place] (1.001-1.035) Urine Protein (Negative) Urine Glucose (UA) (Negative) Urine Ketones (Negative) Urine Blood (Negative) Urine Nitrite (Negative) Urine Bilirubin (Negative) Urine Urobilinogen (<2.0) mg/dL Ur Leukocyte Esterase (Negative) Ur Random Creatinine mg/dL Influenza Type A (PCR) Not Detected (Not Detectd) Influenza Type B (PCR) Not Detected (Not Detectd) RSV (PCR) Not Detected (Not Detectd) SARS-CoV-2 (PCR) Not Detected (Not Detectd) 08/31/23 08/31/23 08/31/23 Range/Units 10:35 10:51 10:51 WBC (3.8-10.6) k/uL RBC (3.80-5.40) m/uL Hgb (11.4-16.0) gm/dL Hct (34.0-46.0) % MCV (80.0-100.0) fL MCH (25.0-35.0) pg MCHC (31.0-37.0) g/dL RDW (11.5-15.5) % Plt Count (150-450) k/uL MPV Immature Gran % (Auto) % Absolute Nucleated RBC % Neutrophils % % Lymphocytes % % Monocytes % % Eosinophils % % Basophils % % Immature Gran # (0.00-0.04) X 10*3/uL Neutrophils # (1.3-7.7) k/uL Lymphocytes # (1.0-4.8) k/uL Monocytes # (0-1.0) k/uL Eosinophils # (0-0.7) k/uL Basophils # (0-0.2) k/uL NRBC/100 WBC Diff (0.00-0.01) X 10*3/uL Hypochromasia Anisocytosis Macrocytosis ESR 75 H (0-30) mm/Hr PT (10.0-12.5) sec INR (<1.2) APTT (22.0-30.0) sec Sodium (137-145) mmol/L Potassium (3.5-5.1) mmol/L Chloride (98-107) mmol/L Carbon Dioxide (22-30) mmol/L Anion Gap mmol/L BUN (7-17) mg/dL Creatinine (0.52-1.04) mg/dL Est GFR (CKD-EPI) (>=60) Est GFR (CKD-EPI)AfAm (>60 ml/min/1.73 sqM) Est GFR (CKD-EPI)NonAf (>60 ml/min/1.73 sqM) BUN/Creatinine Ratio (12.00-20.00) Ratio Glucose (74-99) mg/dL POC Glucose (mg/dL) 105 (70-110) mg/dL POC Glu Clinic Clerk Alexa Rosas Plasma Lactic Acid Shailesh (0.7-2.0) mmol/L Calcium (8.4-10.2) mg/dL Phosphorus (2.5-4.5) mg/dL Magnesium (1.6-2.3) mg/dL Total Bilirubin (0.2-1.3) mg/dL AST (14-36) U/L ALT (4-34) U/L Alkaline Phosphatase (38-126) U/L Troponin I (0.000-0.034) ng/mL NT-Pro-B Natriuret Pep pg/mL Total Protein (6.3-8.2) g/dL Albumin (3.5-5.0) g/dL Globulin (1.6-3.3) g/dL Albumin/Globulin Ratio (1.60-3.17) Ratio Procalcitonin 0.05 (0.02-0.09) ng/mL Urine Color Urine Appearance (Clear) Urine pH (5.0-8.0) Ur Specific [place] (1.001-1.035) Urine Protein (Negative) Urine Glucose (UA) (Negative) Urine Ketones (Negative) Urine Blood (Negative) Urine Nitrite (Negative) Urine Bilirubin (Negative) Urine Urobilinogen (<2.0) mg/dL Ur Leukocyte Esterase (Negative) Ur Random Creatinine mg/dL Influenza Type A (PCR) (Not Detectd) Influenza Type B (PCR) (Not Detectd) RSV (PCR) (Not Detectd) SARS-CoV-2 (PCR) (Not Detectd) 08/31/23 08/31/23 09/01/23 Range/Units 14:10 16:00 02:29 WBC (3.8-10.6) k/uL RBC (3.80-5.40) m/uL Hgb (11.4-16.0) gm/dL Hct (34.0-46.0) % MCV (80.0-100.0) fL MCH (25.0-35.0) pg MCHC (31.0-37.0) g/dL RDW (11.5-15.5) % Plt Count (150-450) k/uL MPV Immature Gran % (Auto) % Absolute Nucleated RBC % Neutrophils % % Lymphocytes % % Monocytes % % Eosinophils % % Basophils % % Immature Gran # (0.00-0.04) X 10*3/uL Neutrophils # (1.3-7.7) k/uL Lymphocytes # (1.0-4.8) k/uL Monocytes # (0-1.0) k/uL Eosinophils # (0-0.7) k/uL Basophils # (0-0.2) k/uL NRBC/100 WBC Diff (0.00-0.01) X 10*3/uL Hypochromasia Anisocytosis Macrocytosis ESR (0-30) mm/Hr PT (10.0-12.5) sec INR (<1.2) APTT (22.0-30.0) sec Sodium (137-145) mmol/L Potassium 5.1 (3.5-5.1) mmol/L Chloride (98-107) mmol/L Carbon Dioxide (22-30) mmol/L Anion Gap mmol/L BUN (7-17) mg/dL Creatinine (0.52-1.04) mg/dL Est GFR (CKD-EPI) (>=60) Est GFR (CKD-EPI)AfAm (>60 ml/min/1.73 sqM) Est GFR (CKD-EPI)NonAf (>60 ml/min/1.73 sqM) BUN/Creatinine Ratio (12.00-20.00) Ratio Glucose (74-99) mg/dL POC Glucose (mg/dL) (70-110) mg/dL POC Glu Clinic Clerk ID Plasma Lactic Acid Shailesh 0.5 L (0.7-2.0) mmol/L Calcium (8.4-10.2) mg/dL Phosphorus (2.5-4.5) mg/dL Magnesium (1.6-2.3) mg/dL Total Bilirubin (0.2-1.3) mg/dL AST (14-36) U/L ALT (4-34) U/L Alkaline Phosphatase (38-126) U/L Troponin I (0.000-0.034) ng/mL NT-Pro-B Natriuret Pep pg/mL Total Protein (6.3-8.2) g/dL Albumin (3.5-5.0) g/dL Globulin (1.6-3.3) g/dL Albumin/Globulin Ratio (1.60-3.17) Ratio Procalcitonin (0.02-0.09) ng/mL Urine Color Urine Appearance (Clear) Urine pH (5.0-8.0) Ur Specific [place] (1.001-1.035) Urine Protein (Negative) Urine Glucose (UA) (Negative) Urine Ketones (Negative) Urine Blood (Negative) Urine Nitrite (Negative) Urine Bilirubin (Negative) Urine Urobilinogen (<2.0) mg/dL Ur Leukocyte Esterase (Negative) Ur Random Creatinine 119.9 mg/dL Influenza Type A (PCR) (Not Detectd) Influenza Type B (PCR) (Not Detectd) RSV (PCR) (Not Detectd) SARS-CoV-2 (PCR) (Not Detectd) 09/01/23 09/01/23 Range/Units 06:03 06:03 WBC 4.5 (3.8-10.6) k/uL RBC 2.51 L (3.80-5.40) m/uL Hgb 7.6 L (11.4-16.0) gm/dL Hct 24.4 L (34.0-46.0) % MCV 97.4 (80.0-100.0) fL MCH 30.3 (25.0-35.0) pg MCHC 31.1 (31.0-37.0) g/dL RDW 17.6 H (11.5-15.5) % Plt Count 108 L (150-450) k/uL MPV 9.7 Immature Gran % (Auto) % Absolute Nucleated RBC % Neutrophils % 80 % Lymphocytes % 11 % Monocytes % 6 % Eosinophils % 1 % Basophils % 0 % Immature Gran # (0.00-0.04) X 10*3/uL Neutrophils # 3.6 (1.3-7.7) k/uL Lymphocytes # 0.5 L (1.0-4.8) k/uL Monocytes # 0.3 (0-1.0) k/uL Eosinophils # 0.0 (0-0.7) k/uL Basophils # 0.0 (0-0.2) k/uL NRBC/100 WBC Diff (0.00-0.01) X 10*3/uL Hypochromasia Marked Anisocytosis Slight Macrocytosis Slight ESR (0-30) mm/Hr PT (10.0-12.5) sec INR (<1.2) APTT (22.0-30.0) sec Sodium (137-145) mmol/L Potassium (3.5-5.1) mmol/L Chloride (98-107) mmol/L Carbon Dioxide (22-30) mmol/L Anion Gap mmol/L BUN (7-17) mg/dL Creatinine (0.52-1.04) mg/dL Est GFR (CKD-EPI) (>=60) Est GFR (CKD-EPI)AfAm (>60 ml/min/1.73 sqM) Est GFR (CKD-EPI)NonAf (>60 ml/min/1.73 sqM) BUN/Creatinine Ratio (12.00-20.00) Ratio Glucose (74-99) mg/dL POC Glucose (mg/dL) (70-110) mg/dL POC Glu Clinic Clerk ID Plasma Lactic Acid Shailesh (0.7-2.0) mmol/L Calcium (8.4-10.2) mg/dL Phosphorus (2.5-4.5) mg/dL Magnesium (1.6-2.3) mg/dL Total Bilirubin (0.2-1.3) mg/dL AST (14-36) U/L ALT (4-34) U/L Alkaline Phosphatase (38-126) U/L Troponin I (0.000-0.034) ng/mL NT-Pro-B Natriuret Pep 652 pg/mL Total Protein (6.3-8.2) g/dL Albumin (3.5-5.0) g/dL Globulin (1.6-3.3) g/dL Albumin/Globulin Ratio (1.60-3.17) Ratio Procalcitonin (0.02-0.09) ng/mL Urine Color Urine Appearance (Clear) Urine pH (5.0-8.0) Ur Specific [place] (1.001-1.035) Urine Protein (Negative) Urine Glucose (UA) (Negative) Urine Ketones (Negative) Urine Blood (Negative) Urine Nitrite (Negative) Urine Bilirubin (Negative) Urine Urobilinogen (<2.0) mg/dL Ur Leukocyte Esterase (Negative) Ur Random Creatinine mg/dL Influenza Type A (PCR) (Not Detectd) Influenza Type B (PCR) (Not Detectd) RSV (PCR) (Not Detectd) SARS-CoV-2 (PCR) (Not Detectd) Disposition Clinical Impression: Weakness, Frequent falls, Unable to ambulate Disposition: ADMITTED IP TO THIS HOSP Condition: Fair Time of Disposition: 15:58
[2023-08-30 13:13] LABS: Anisocytosis Slight; Basophils % (A) 0 %; Eosinophils % (A) 0 %; HCT 26.7 % (34.0-46.0); HGB 8.3 gm/dL (11.4-16.0); Hypochromasia Marked; Lymphocytes # (A) 0.4 k/uL (1.0-4.8); Lymphocytes % (A) 10 %; MCH 29.9 pg (25.0-35.0); MCHC 30.9 g/dL (31.0-37.0); MCV 96.8 fL (80.0-100.0); Mean Platelet Volume 8.6; Monocytes # (A) 0.1 k/uL (0-1.0); Monocytes % (A) 3 %; Neutrophils # (A) 3.9 k/uL (1.3-7.7); Neutrophils % (A) 86 %; Platelet Count 135 k/uL (150-450); RBC 2.76 m/uL (3.80-5.40); WBC 4.6 k/uL (3.8-10.6)
[2023-08-30 13:22] LABS: INR 1.1 (<1.2); Prothrombin Time 11.5 sec (10.0-12.5)
--- NOTE | 2023-08-30 13:29 | XR ---
EXAMINATION TYPE: XR chest 2V DATE OF EXAM: 08/30/2023 COMPARISON: 07/08/2023 HISTORY: 78-year-old female with weakness TECHNIQUE: AP and lateral views FINDINGS: Heart mildly enlarged. Interstitial density. Small bilateral pleural effusions on the lateral view. IMPRESSION: Correlate for CHF with pulmonary vascular congestion. Small bilateral pleural effusions.
[2023-08-30 13:41] LABS: ALT 45 U/L (4-34); AST 37 U/L (14-36); African American GFR (CKD) >90 (>60 ml/min/1.73 sqM); Albumin 3.5 g/dL (3.5-5.0); Alkaline Phosphatase 127 U/L (38-126); Anion Gap 11 mmol/L; Blood Urea Nitrogen 35 mg/dL (7-17); Calcium 9.4 mg/dL (8.4-10.2); Carbon Dioxide 18 mmol/L (22-30); Chloride 115 mmol/L (98-107); Glucose 64 mg/dL (74-99); Magnesium 2.2 mg/dL (1.6-2.3); Non-African American GFR(CKD) 79 (>60 ml/min/1.73 sqM); Phosphorus 3.6 mg/dL (2.5-4.5); Potassium 5.3 mmol/L (3.5-5.1); Sodium 144 mmol/L (137-145); Total Bilirubin 0.6 mg/dL (0.2-1.3)
[2023-08-30 13:49] LABS: NT-Pro-B-Type Natriuretic Pept 647 pg/mL
[2023-08-30 15:50] LABS: Appearance,Urine Clear (Clear); Bilirubin,Urine Negative (Negative); Blood,Urine Negative (Negative); Color,Urine Colorless; Glucose,Urine (UA) Negative (Negative); Ketones,Urine Negative (Negative); Leukocyte Esterase,Urine Negative (Negative); Nitrite,Urine Negative (Negative); Protein,Urine Trace (Negative); Specific Gravity,Urine 1.021 (1.001-1.035); Urobilinogen,Urine <2.0 mg/dL (<2.0)
[2023-08-30] MEDS ORDERED: ACETAMINOPHEN TAB 325 MG TAB PO PRN (15:58)
[2023-08-30] MEDS ORDERED: NALOXONE 0.4 MG/ML 1 ML VIAL IV PRN (15:58)
[2023-08-30] MEDS ORDERED: ALBUTEROL NEBULIZED 2.5 MG/3 ML INHALATION PRN (18:50)
[2023-08-30] MEDS ORDERED: LOSARTAN 25 MG TAB PO SCH (19:30)
[2023-08-30] MEDS: APIXABAN 5 MG TAB PO SCH (20:36)
[2023-08-30] MEDS: METOPROLOL SUCCINATE (ER) 25 MG TAB.ER.24H PO SCH (20:37)
[2023-08-30] MEDS: DORZOLAMIDE-TIMOLOL 2.23%/0.68 10ML BTL BOTH EYES SCH (20:37)
[2023-08-30] MEDS: BRIMONIDINE TARTRATE 0.2% DROPS 5 ML BTL RIGHT EYE SCH (20:37)
[2023-08-31] MEDS: PANTOPRAZOLE 40 MG TABLET PO SCH (06:22)
[2023-08-31 08:58] LABS: Basophils # (A) 0 X 10*3/uL (0.00-0.10); Basophils % (A) 0 %; Eosinophils # (A) 0.01 X 10*3/uL (0.04-0.35); Eosinophils % (A) 0.2 %; HCT 24.8 % (37.2-46.3); HGB 7.4 g/dL (12.0-15.0); Lymphocytes # (A) 0.57 X 10*3/uL (0.90-5.00); Lymphocytes % (A) 12.2 %; MCH 28.8 pg (27.0-32.0); MCHC 29.8 g/dL (32.0-37.0); MCV 96.5 FL (80.0-97.0); Mean Platelet Volume 10.7 FL (9.5-12.2); Monocytes # (A) 0.43 X 10*3/uL (0.20-1.00); Monocytes % (A) 9.2 %; NRBC Per 100 WBC 0 X 10*3/uL (0.00-0.01); Neutrophils # (A) 3.67 X 10*3/uL (1.80-7.70); Neutrophils % (A) 78.2 %; Platelet Count 118 X 10*3/uL (140-440); RBC 2.57 X 10*6/uL (4.10-5.20); RDW 18.1 % (11.5-14.5); WBC 4.69 X 10*3/uL (4.50-10.00)
[2023-08-31] MEDS: DORZOLAMIDE-TIMOLOL 2.23%/0.68 10ML BTL BOTH EYES SCH ×2 (09:11→19:49)
[2023-08-31] MEDS: FUROSEMIDE 40 MG TAB PO SCH (09:11)
[2023-08-31] MEDS: FERROUS SULFATE 325 MG TAB PO SCH (09:11)
[2023-08-31] MEDS: ATORVASTATIN 40 MG TAB PO SCH (09:11)
[2023-08-31] MEDS: METOPROLOL SUCCINATE (ER) 25 MG TAB.ER.24H PO SCH (09:11)
[2023-08-31] MEDS: BRIMONIDINE TARTRATE 0.2% DROPS 5 ML BTL RIGHT EYE SCH ×2 (09:11→19:48)
[2023-08-31] MEDS: APIXABAN 5 MG TAB PO SCH ×2 (09:11→19:47)
[2023-08-31 09:12] LABS: ALT 37 U/L (8-44); AST 26 U/L (13-35); Albumin 3.3 g/dL (3.8-4.9); Albumin/Globulin Ratio 1.14 Ratio (1.60-3.17); Alkaline Phosphatase 113 U/L (41-126); BUN/Creat Ratio 39.11 Ratio (12.00-20.00); Blood Urea Nitrogen 35.2 mg/dL (9.0-27.0); Calcium 9.5 mg/dL (8.7-10.3); Carbon Dioxide 21.5 mmol/L (21.6-31.8); Chloride 115 mmol/L (96-109); Globulin 2.9 g/dL (1.6-3.3); Glucose 90 mg/dL (70-110); Potassium 5.7 mmol/L (3.5-5.5); Sodium 144 mmol/L (135-145); Total Bilirubin 0.3 mg/dL (0.3-1.2); Total Protein 6.2 g/dL (6.2-8.2)
[2023-08-31] MEDS: NYSTATIN 100,000 UNIT/GM POWD 15 GM TOPICAL SCH ×2 (09:12→19:50)
[2023-08-31] MEDS: FLUOROMETHOLONE 0.1% OPHTH DROPS 5 ML BTL BOTH EYES SCH ×2 (09:59→19:49)
[2023-08-31] MEDS ORDERED: ALBUTEROL NEB (CONC) 2.5 MG/0.5 ML INHALATION ONE (10:25)
[2023-08-31] MEDS ORDERED: INSULIN REGULAR 100 UNIT/ML VIAL (IV) IV ONE (10:25)
[2023-08-31] MEDS ORDERED: DEXTROSE 50% SYRINGE 50 ML IVP ONE (10:25)
--- NOTE | 2023-08-31 10:27 | P.HPIM ---
History of Present Illness H&P Date: 08/31/23 History of present illness; patient 78-year-old lady with past medical history s ignificant for paroxysmal atrial fibrillation, chronic venous ulcers, chronic lymphedema was brought to the ER from home after complaining of generalized weakness and unable to take care of herself. Patient was admitted to the hospital in the beginning of July, at that time patient was discharged to rehab but patient signed herself out earlier. Patient was showering yesterday and at time patient felt very weak and had to sit down in the shower, family tried to get her up but were unsuccessful. Patient didn't pass out. There was no complain of any weakness of any particular extremity. There was no complain of facial droop or slurred speech at that time. Patient denied any palpitation of the time. There is no complain of chest pain. Because of generalized weakness, EMS was called and patient was brought to the ER Initial lab work done in the ER showed WBC 4.6, hemoglobin 8.3, platelet count 135, sodium 144, potassium 5.3, BUN/creatinine 35, creatinine 0.73 AST 37, AST 45, alk phos 127 UA negative for infection Influenza A not detected Influenza B not detected RSV not detected COVID-19 not detected EKG done in the ER showed heart rate of 60, no ST segment elevation or depr ession seen, no T-wave inversions seen. Chest x-ray done in the ER correlate for CHF with pulmonary vascular congestion Patient admitted to internal medicine service REVIEW OF SYSTEMS: CONSTITUTIONAL: As mentioned above HEENT: No recent visual problems or hearing problems. Denied any sore throat. CARDIOVASCULAR: No chest pain, orthopnea, PND, no palpitations, no syncope. PULMONARY: No shortness of breath, no cough, no hemoptysis. GASTROINTESTINAL: No diarrhea, no nausea, no vomiting, no abdominal pain. NEUROLOGICAL: As mentioned above HEMATOLOGICAL: Denies any bleeding or petechiae. GENITOURINARY: Denies any burning micturition, frequency, or urgency. MUSCULOSKELETAL/RHEUMATOLOGICAL: Denies any joint pain, swelling, or any muscle pain. ENDOCRINE: Denies any polyuria or polydipsia. The rest of the 14-point review of systems is negative. PHYSICAL EXAMINATION: GENERAL: The patient is alert and oriented x3, not in any acute distress. Well developed, well nourished. HEENT: Pupils are round and equally reacting to light. EOMI. No scleral icterus. No conjunctival pallor. Normocephalic, atraumatic. No pharyngeal erythema. No thyromegaly. CARDIOVASCULAR: S1 and S2 present. No murmurs, rubs, or gallops. PULMONARY: Chest is clear to auscultation, no wheezing or crackles. ABDOMEN: Soft, nontender, nondistended, normoactive bowel sounds. No palpable organomegaly. MUSCULOSKELETAL: No joint swelling or deformity. EXTREMITIES: Chronic lymphedematous changes lower extremities bilaterally NEUROLOGICAL: Gross neurological examination did not reveal any focal deficits. SKIN: No rashes. Assessment and plan Generalized weakness Hyperkalemia paroxysmal atrial fib anemia Uninfected sacral decubitus ulcer Bilateral lower extremity chronic venous stasis ulcerations Bilateral lymphedema Monitor vital signs Monitor CBC Monitor CMP Follow-up precautions Strict I's and O's, daily weights Low potassium diet. Ordered hyperkalemia protocol Ordered lokelma daily Check CRP, ESR, check pro-Seamus Resume Lasix Resume home meds PT and OT consulted Labs and medication were reviewed.. Continue same treatment. Continue with symptomatic treatment. Resume home medication. Monitor labs and vitals. DVT and GI prophylaxis. Further recommendations as per clinical course of the patient Dictation was produced using [employer] dictation software. please excuse any grammatical, word or spelling errors. Past Medical History Past Medical History: Osteoarthritis (OA), Pneumonia, Vascular Disorder Additional Past Medical History / Comment(s): lower leg edema History of Any Multi-Drug Resistant Organisms: None Reported Past Surgical History: Appendectomy, Joint Replacement, Tubal Ligation Additional Past Surgical History / Comment(s): madeline hip and knees total replacement; cat sx with lens implants both eyes Past Anesthesia/Blood Transfusion Reactions: No Reported Reaction Past Psychological History: No Psychological Hx Reported Smoking Status: Never smoker Past Alcohol Use History: None Reported Past Drug Use History: None Reported - Past Family History Father Additional Family Medical History / Comment(s): PASSED OF OLD AGE Mother Additional Family Medical History / Comment(s): PASSED OF OLD AGE Medications and Allergies Home Medications Medication Instructions Recorded Confirmed Type Brimonidine Tartrate [Alphagan P 1 drop RIGHT EYE BID 01/27/23 08/30/23 History 0.2% Ophth Soln] Fluorometholone 0.1% Ophth Megan 1 drop BOTH EYES BID 01/27/23 08/30/23 History [Fml] Potassium Chloride [Klor-Con M10] 10 meq PO DAILY 01/27/23 08/30/23 History Dorzolamide-Timol 2.23%/0.68% 1 drop BOTH EYES BID 07/08/23 08/30/23 History [Cosopt] Furosemide [Lasix] 40 mg PO DAILY 07/08/23 08/30/23 History Apixaban [Eliquis] 5 mg PO BID tab 07/15/23 08/30/23 Rx Atorvastatin [Lipitor] 40 mg PO DAILY tab 07/15/23 08/30/23 Rx Metoprolol Succinate (ER) [Toprol 25 mg PO DAILY tab 07/15/23 08/30/23 Rx XL] Albuterol Inhaler [Ventolin Hfa 1 - 2 puff INHALATION RT-TID PRN 08/30/23 08/30/23 History Inhaler] Ferrous Sulfate [Feosol] 325 mg PO DAILY 08/30/23 08/30/23 History Losartan [Cozaar] 25 mg PO DAILY 08/30/23 08/30/23 History Omeprazole 20 mg PO AC-BRKFST 08/30/23 08/30/23 History Allergies Allergy/AdvReac Type Severity Reaction Status Date / Time No Known Allergies Allergy Verified 07/08/23 12:33 Physical Exam Vitals: Vital Signs Temp Pulse Pulse Resp BP BP Pulse Ox 08/31/23 03:03 57 L 18 120/71 99 08/31/23 02:00 64 08/30/23 20:36 64 08/30/23 20:33 97.6 F 64 18 116/79 97 08/30/23 18:05 66 16 167/78 95 08/30/23 17:47 58 L 18 144/74 97 08/30/23 15:44 61 18 154/84 97 08/30/23 12:13 68 18 146/73 98 Intake and Output 08/30/23 08/30/23 08/31/23 14:59 22:59 06:59 Other: Voiding Method External Catheter External Catheter Weight 110.586 kg 110.586 kg Results CBC & Chem 7: 08/31/23 05:30 08/31/23 05:30 Labs: Abnormal Lab Results - Last 24 Hours (Table) 08/30/23 08/30/23 08/30/23 Range/Units 12:37 12:37 12:37 RBC 2.76 L (3.80-5.40) m/uL Hgb 8.3 L (11.4-16.0) gm/dL Hct 26.7 L (34.0-46.0) % MCHC 30.9 L (31.0-37.0) g/dL RDW 17.0 H (11.5-15.5) % Plt Count 135 L (150-450) k/uL Lymphocytes # 0.4 L (1.0-4.8) k/uL APTT 31.0 H (22.0-30.0) sec Potassium (3.5-5.1) mmol/L Chloride (98-107) mmol/L Carbon Dioxide (22-30) mmol/L BUN (7-17) mg/dL Glucose (74-99) mg/dL AST (14-36) U/L ALT (4-34) U/L Alkaline Phosphatase (38-126) U/L Urine Protein Trace H (Negative) 08/30/23 Range/Units 12:37 RBC (3.80-5.40) m/uL Hgb (11.4-16.0) gm/dL Hct (34.0-46.0) % MCHC (31.0-37.0) g/dL RDW (11.5-15.5) % Plt Count (150-450) k/uL Lymphocytes # (1.0-4.8) k/uL APTT (22.0-30.0) sec Potassium 5.3 H (3.5-5.1) mmol/L Chloride 115 H (98-107) mmol/L Carbon Dioxide 18 L (22-30) mmol/L BUN 35 H (7-17) mg/dL Glucose 64 L (74-99) mg/dL AST 37 H (14-36) U/L ALT 45 H (4-34) U/L Alkaline Phosphatase 127 H (38-126) U/L Urine Protein (Negative) Thrombosis Risk Factor Assmnt - Choose All That Apply Any of the Below Risk Factors Present?: Yes Each Factor Represents 1 point: Obesity (BMI >25) Other Risk Factors: Yes Each Risk Factor Represents 3 Points: Age 75 years or older Other congenital or acquired thrombophilia - If yes, enter type in comment: No Thrombosis Risk Factor Assessment Total Risk Factor Score: 4 Thrombosis Risk Factor Assessment Level: Moderate Risk
[2023-08-31 10:37] LABS: Glucose,Whole Blood 105 mg/dL (70-110)
[2023-08-31] MEDS: SODIUM ZIRCONIUM CYCLOSILICATE 10 GM PACKET PO SCH (11:50)
[2023-08-31] MEDS ORDERED: DOCUSATE 100 MG CAP PO PRN (18:34)
[2023-09-01] MEDS: PANTOPRAZOLE 40 MG TABLET PO SCH (05:45)
[2023-09-01 06:18] LABS: Anisocytosis Slight; Basophils % (A) 0 %; Eosinophils % (A) 1 %; HCT 24.4 % (34.0-46.0); HGB 7.6 gm/dL (11.4-16.0); Hypochromasia Marked; Lymphocytes # (A) 0.5 k/uL (1.0-4.8); Lymphocytes % (A) 11 %; MCH 30.3 pg (25.0-35.0); MCHC 31.1 g/dL (31.0-37.0); MCV 97.4 fL (80.0-100.0); Macrocytosis Slight; Mean Platelet Volume 9.7; Monocytes # (A) 0.3 k/uL (0-1.0); Monocytes % (A) 6 %; Neutrophils # (A) 3.6 k/uL (1.3-7.7); Neutrophils % (A) 80 %; Platelet Count 108 k/uL (150-450); RBC 2.51 m/uL (3.80-5.40); RDW 17.6 % (11.5-15.5); WBC 4.5 k/uL (3.8-10.6)
--- NOTE | 2023-09-01 06:56 | P.CONS ---
History of Present Illness - Reason for Consult Consult date: 08/31/23 - History of Present Illness Patient is a 78-year-old female with a past medical history significant for pneumonia osteoarthritis and chronic swelling to bilateral lower extremity patient has been brought into the ER by EMS for evaluation of weakness patient mention she was showering when she felt very weak and stated that she has to sit down family was unable to get her up and EMS was calling patient denies having any headache or fever or any chills no chest pain shortness of breath or cough no nausea no vomiting no abdominal pain or any diarrhea patient complaining of increasing swelling to bilateral extremity with weeping edema for which infectious disease was consulted patient on presentation to the hospital was afebrile she was noticed to be hypothermic this morning not tachycardic no hypotension or hypoxemia patient did have a white count of 4.6 with no left shift creatinine was normal potassium was elevated subsequently normalized liver enzymes are normal procalcitonin was normal urine is negative influenza RSV and COVID testing was negative patient did have a chest x-ray correlate for CHF with pulmonary vascular congestion and small bilateral effusion infectious disease was consulted for bilateral lower extremity ulceration and weeping edema Past Medical History Past Medical History: Osteoarthritis (OA), Pneumonia, Vascular Disorder Additional Past Medical History / Comment(s): lower leg edema History of Any Multi-Drug Resistant Organisms: None Reported Past Surgical History: Appendectomy, Joint Replacement, Tubal Ligation Additional Past Surgical History / Comment(s): madeline hip and knees total replacement; cat sx with lens implants both eyes Past Anesthesia/Blood Transfusion Reactions: No Reported Reaction Past Psychological History: No Psychological Hx Reported Smoking Status: Never smoker Past Alcohol Use History: None Reported Past Drug Use History: None Reported - Past Family History Father Additional Family Medical History / Comment(s): PASSED OF OLD AGE Mother Additional Family Medical History / Comment(s): PASSED OF OLD AGE Medications and Allergies Home Medications Medication Instructions Recorded Confirmed Type Brimonidine Tartrate [Alphagan P 1 drop RIGHT EYE BID 01/27/23 08/30/23 History 0.2% Ophth Soln] Fluorometholone 0.1% Ophth Megan 1 drop BOTH EYES BID 01/27/23 08/30/23 History [Fml] Potassium Chloride [Klor-Con M10] 10 meq PO DAILY 01/27/23 08/30/23 History Dorzolamide-Timol 2.23%/0.68% 1 drop BOTH EYES BID 07/08/23 08/30/23 History [Cosopt] Furosemide [Lasix] 40 mg PO DAILY 07/08/23 08/30/23 History Apixaban [Eliquis] 5 mg PO BID tab 07/15/23 08/30/23 Rx Atorvastatin [Lipitor] 40 mg PO DAILY tab 07/15/23 08/30/23 Rx Metoprolol Succinate (ER) [Toprol 25 mg PO DAILY tab 07/15/23 08/30/23 Rx XL] Albuterol Inhaler [Ventolin Hfa 1 - 2 puff INHALATION RT-TID PRN 08/30/23 08/30/23 History Inhaler] Ferrous Sulfate [Feosol] 325 mg PO DAILY 08/30/23 08/30/23 History Losartan [Cozaar] 25 mg PO DAILY 08/30/23 08/30/23 History Omeprazole 20 mg PO AC-BRKFST 08/30/23 08/30/23 History Allergies Allergy/AdvReac Type Severity Reaction Status Date / Time No Known Allergies Allergy Verified 07/08/23 12:33 Physical Exam Vitals: Vital Signs Temp Pulse Pulse Resp BP BP Pulse Ox 08/31/23 08:57 55 L 08/31/23 08:43 55 L 08/31/23 07:05 53 L 18 106/64 98 08/31/23 06:42 90.8 F L 08/31/23 03:03 57 L 18 120/71 99 08/31/23 02:00 64 08/30/23 20:36 64 08/30/23 20:33 97.6 F 64 18 116/79 97 08/30/23 18:05 66 16 167/78 95 08/30/23 17:47 58 L 18 144/74 97 08/30/23 15:44 61 18 154/84 97 08/30/23 12:13 68 18 146/73 98 Intake and Output 08/30/23 08/31/23 08/31/23 22:59 06:59 14:59 Intake Total 59 Output Total 284 Balance -225 Intake: Oral 59 Output: Post Void Residual 284 Other: Voiding Method External Catheter External Catheter Diaper External Catheter # Voids 0 Weight 110.586 kg Results CBC & Chem 7: 09/01/23 06:03 08/31/23 16:00 Labs: Abnormal Lab Results - Last 24 Hours (Table) 08/30/23 08/30/23 08/30/23 Range/Units 12:37 12:37 12:37 RBC 2.76 L (3.80-5.40) m/uL Hgb 8.3 L (11.4-16.0) gm/dL Hct 26.7 L (34.0-46.0) % MCHC 30.9 L (31.0-37.0) g/dL RDW 17.0 H (11.5-15.5) % Plt Count 135 L (150-450) k/uL Lymphocytes # 0.4 L (1.0-4.8) k/uL Eosinophils # (0.04-0.35) X 10*3/uL APTT 31.0 H (22.0-30.0) sec Potassium (3.5-5.1) mmol/L Chloride (98-107) mmol/L Carbon Dioxide (22-30) mmol/L BUN (7-17) mg/dL BUN/Creatinine Ratio (12.00-20.00) Ratio Glucose (74-99) mg/dL AST (14-36) U/L ALT (4-34) U/L Alkaline Phosphatase (38-126) U/L Albumin (3.8-4.9) g/dL Albumin/Globulin Ratio (1.60-3.17) Ratio Urine Protein Trace H (Negative) 08/30/23 08/31/23 08/31/23 Range/Units 12:37 05:30 05:30 RBC 2.57 L (3.80-5.40) m/uL Hgb 7.4 L (11.4-16.0) gm/dL Hct 24.8 L (34.0-46.0) % MCHC 29.8 L (31.0-37.0) g/dL RDW 18.1 H (11.5-15.5) % Plt Count 118 L (150-450) k/uL Lymphocytes # 0.57 L (1.0-4.8) k/uL Eosinophils # 0.01 L (0.04-0.35) X 10*3/uL APTT (22.0-30.0) sec Potassium 5.3 H 5.7 H (3.5-5.1) mmol/L Chloride 115 H 115 H (98-107) mmol/L Carbon Dioxide 18 L 21.5 L (22-30) mmol/L BUN 35 H 35.2 H (7-17) mg/dL BUN/Creatinine Ratio 39.11 H (12.00-20.00) Ratio Glucose 64 L (74-99) mg/dL AST 37 H (14-36) U/L ALT 45 H (4-34) U/L Alkaline Phosphatase 127 H (38-126) U/L Albumin 3.3 L (3.8-4.9) g/dL Albumin/Globulin Ratio 1.14 L (1.60-3.17) Ratio Urine Protein (Negative) Assessment and Plan Plan: 1-patient with bilateral lower extremity swelling with pitting edema and some superficial laceration likely related to underlying cardiac etiology and concern for possible venous stasis dermatitis patient is clinically not behaving as cellulitis did not have any fever or elevated white count 2-we will recommend Mycolog cream to bilateral lower extremity twice a day to leave them on for about an hour afterwards Yordan wrap to both the left and just above the toe to below the knee this was discussed with the nursing staff We will follow on clinical condition and cultures to further adjust medication if needed Thank you for this consultation we will follow the patient along with you Dictation was produced using [employer] dictation software. please excuse any grammatical, word or spelling errors.
[2023-09-01] MEDS: TRIAMCINOLONE 0.1% CREAM 80 GM TUBE TOPICAL SCH ×2 (08:27→20:19)
[2023-09-01] MEDS: NYSTATIN 100,000UNIT/GM CREAM 30 GM TUBE TOPICAL SCH ×2 (08:27→20:19)
[2023-09-01] MEDS: APIXABAN 5 MG TAB PO SCH ×2 (08:28→20:19)
[2023-09-01] MEDS: METOPROLOL SUCCINATE (ER) 25 MG TAB.ER.24H PO SCH (08:28)
[2023-09-01] MEDS: FERROUS SULFATE 325 MG TAB PO SCH (08:28)
[2023-09-01] MEDS: FUROSEMIDE 40 MG TAB PO SCH (08:28)
[2023-09-01] MEDS: ATORVASTATIN 40 MG TAB PO SCH (08:28)
[2023-09-01] MEDS: DORZOLAMIDE-TIMOLOL 2.23%/0.68 10ML BTL BOTH EYES SCH ×2 (08:29→20:20)
[2023-09-01] MEDS: FLUOROMETHOLONE 0.1% OPHTH DROPS 5 ML BTL BOTH EYES SCH ×2 (08:29→20:19)
[2023-09-01] MEDS: BRIMONIDINE TARTRATE 0.2% DROPS 5 ML BTL RIGHT EYE SCH ×2 (08:29→20:19)
[2023-09-01] MEDS: NYSTATIN 100,000 UNIT/GM POWD 15 GM TOPICAL SCH ×2 (08:29→20:19)
[2023-09-01] MEDS ORDERED: NYSTAT-TRIAMCIN 100,000-0.1 UNIT/GM-% CREAM 30 GM TUBE TOPICAL SCH (09:00)
[2023-09-01] MEDS: IPRATROPIUM-ALBUTEROL 3 ML NEB INHALATION SCH ×4 (09:24→19:51)
[2023-09-01] MEDS: SODIUM ZIRCONIUM CYCLOSILICATE 10 GM PACKET PO SCH (12:48)
--- NOTE | 2023-09-01 13:17 | P.PN ---
Subjective Progress Note Date: 09/01/23 patient 78-year-old lady with past medical history significant for paroxysmal atrial fibrillation, chronic venous ulcers, chronic lymphedema was brought to the ER from home after complaining of generalized weakness and unable to take care of herself. Patient was admitted to the hospital in the beginning of July, at that time patient was discharged to rehab but patient signed he rself out earlier. Patient was showering yesterday and at time patient felt very weak and had to sit down in the shower, family tried to get her up but were unsuccessful. Patient didn't pass out. There was no complain of any weakness of any particular extremity. There was no complain of facial droop or slurred speech at that time. Patient denied any palpitation of the time. There is no complain of chest pain. Because of generalized weakness, EMS was called and patient was brought to the ER Initial lab work done in the ER showed WBC 4.6, hemoglobin 8.3, platelet count 135, sodium 144, potassium 5.3, BUN/creatinine 35, creatinine 0.73 AST 37, AST 45, alk phos 127 UA negative for infection Influenza A not detected Influenza B not detected RSV not detected COVID-19 not detected EKG done in the ER showed heart rate of 60, no ST segment elevation or depression seen, no T-wave inversions seen. Chest x-ray done in the ER correlate for CHF with pulmonary vascular congestion Patient admitted to internal medicine service 09/01. Patient seen and examined. Laying comfortably in the bed. Vital signs stable REVIEW OF SYSTEMS: CONSTITUTIONAL: No fever, no malaise,. CARDIOVASCULAR: No chest pain, no palpitations, no syncope. PULMONARY: No shortness of breath, no cough, GASTROINTESTINAL: No diarrhea, no nausea, no vomiting, no abdominal pain. NEUROLOGICAL: No headaches, no weakness, PHYSICAL EXAMINATION: GENERAL: The patient is alert and oriented x3, not in any acute distress. Well developed, well nourished. HEENT: Pupils are round and equally reacting to light. EOMI. No scleral icterus. No conjunctival pallor. Normocephalic, atraumatic. No pharyngeal erythema. No thyromegaly. CARDIOVASCULAR: S1 and S2 present. No murmurs, rubs, or gallops. PULMONARY: Chest is clear to auscultation, no wheezing or crackles. ABDOMEN: Soft, nontender, nondistended, normoactive bowel sounds. No palpable organomegaly. MUSCULOSKELETAL: No joint swelling or deformity. EXTREMITIES: Chronic lymphedematous changes lower extremities bilaterally NEUROLOGICAL: Gross neurological examination did not reveal any focal deficits. SKIN: No rashes. Assessment and plan Generalized weakness Hyperkalemia paroxysmal atrial fib anemia Uninfected sacral decubitus ulcer Bilateral lower extremity chronic venous stasis ulcerations Bilateral lymphedema Monitor vital signs Monitor CBC Monitor CMP Follow-up precautions Strict I's and O's, daily weights Low potassium diet. Continue Lasix Continue wound care ID evaluated the patient, recommended no need for any antibiotics, recommended topical Mycolog cream Continue home meds PT and OT consulted In regards to hypertension continue Toprol, Lasix Regards to hyperlipidemia continue Lipitor Labs and medication were reviewed.. Continue same treatment. Continue with sy mptomatic treatment. Resume home medication. Monitor labs and vitals. DVT and GI prophylaxis. Further recommendations as per clinical course of the patient Dictation was produced using [employer] dictation software. please excuse any grammatical, word or spelling errors. Objective - Vital Signs Vital signs: Vital Signs Temp 94.7 F L 09/01/23 05:10 Pulse 67 09/01/23 09:33 Resp 12 09/01/23 07:00 BP 125/57 09/01/23 07:00 Pulse Ox 91 L 09/01/23 07:00 FiO2 Intake & Output 08/31/23 09/01/23 09/01/23 18:59 06:59 18:59 Intake Total 177 Output Total 284 475 Balance -107 -475 Intake: Oral 177 Output: Urine 475 Post Void Residual 284 Other: Voiding Method Diaper Diaper External Catheter External Catheter # Voids 1 1 - Labs CBC & Chem 7: 09/01/23 06:03 08/31/23 16:00 Labs: Abnormal Lab Results - Last 24 Hours (Table) 08/31/23 09/01/23 09/01/23 Range/Units 10:51 02:29 06:03 RBC 2.51 L (3.80-5.40) m/uL Hgb 7.6 L (11.4-16.0) gm/dL Hct 24.4 L (34.0-46.0) % RDW 17.6 H (11.5-15.5) % Plt Count 108 L (150-450) k/uL Lymphocytes # 0.5 L (1.0-4.8) k/uL ESR 75 H (0-30) mm/Hr Plasma Lactic Acid Shailesh 0.5 L (0.7-2.0) mmol/L
--- NOTE | 2023-09-01 15:47 | P.PN ---
Subjective Progress Note Date: 09/01/23 Principal diagnosis: Reason for follow-up is bilateral lower extremity swelling and venous stasis dermatitis Patient is a 78-year-old female with a past medical history s ignificant for pneumonia osteoarthritis and chronic swelling to bilateral lower extremity patient has been brought into the ER by EMS for evaluation of weakness and unable to get up also complaining to increasing swelling to the leg did have a complaint of venous stasis dermatitis On today's evaluation that is 09/01/2023 patient mildly hypothermic patient denies having any chest pain complaining of some shortness of breath however currently satting 98% room air no nausea vomiting abdominal pain or diarrhea denies pain to the lower extremity Patient did have white count of 4.5 Objective - Vital Signs Vital signs: Vital Signs Temp 94.4 F L 09/01/23 08:22 Pulse 67 09/01/23 09:33 Resp 12 09/01/23 08:00 BP 125/57 09/01/23 07:00 Pulse Ox 91 L 09/01/23 07:00 FiO2 Intake & Output 08/31/23 09/01/23 09/01/23 18:59 06:59 18:59 Intake Total 177 Output Total 284 475 Balance -107 -475 Intake: Oral 177 Output: Urine 475 Post Void Residual 284 Other: Voiding Method Diaper Diaper Diaper External Catheter External Catheter External Catheter # Voids 1 1 - Exam GENERAL DESCRIPTION: An elderly female lying in bed in no distress RESPIRATORY SYSTEM: Unlabored breathing , decreased breath sounds at bases HEART: S1 S2 regular rate and rhythm , ABDOMEN: Soft , no tenderness EXTREMITIES: Diffuse swelling to bilateral lower extremity minimal redness no drainage - Labs CBC & Chem 7: 09/01/23 06:03 08/31/23 16:00 Labs: Abnormal Lab Results - Last 24 Hours (Table) 08/31/23 09/01/23 09/01/23 Range/Units 10:51 02:29 06:03 RBC 2.51 L (3.80-5.40) m/uL Hgb 7.6 L (11.4-16.0) gm/dL Hct 24.4 L (34.0-46.0) % RDW 17.6 H (11.5-15.5) % Plt Count 108 L (150-450) k/uL Lymphocytes # 0.5 L (1.0-4.8) k/uL ESR 75 H (0-30) mm/Hr Plasma Lactic Acid Shailesh 0.5 L (0.7-2.0) mmol/L Assessment and Plan (1) Chronic venous hypertension (idiopathic) with ulcer and inflammation of bilateral lower extremity Current Visit: No Status: Acute Code(s): I87.333 - CHRONIC VENOUS HTN W ULCER AND INFLAM OF BILATERAL LOW EXTRM SNOMED Code(s): 421810586163430 Plan: 1-patient with bilateral lower extremity swelling with pitting edema and some superficial laceration likely related to underlying cardiac etiology and concern for possible venous stasis dermatitis patient is clinically not behaving as cellulitis, Patient white count remains to be normal. 2patient to continue with the Mycolog cream to the leg followed by Yordan wrap for compression to keep the swelling down and will monitor closely off antibiotic therapy Dictation was produced using [employer] dictation software. please excuse any grammatical, word or spelling errors. Time with Patient: Less than 30
[2023-09-02] MEDS: IPRATROPIUM-ALBUTEROL 3 ML NEB INHALATION SCH ×6 (01:17→20:40)
[2023-09-02] MEDS: PANTOPRAZOLE 40 MG TABLET PO SCH (06:00)
[2023-09-02 08:23] VITALS: BMI 43.2
[2023-09-02] MEDS: METOPROLOL SUCCINATE (ER) 25 MG TAB.ER.24H PO SCH (09:08)
[2023-09-02] MEDS: APIXABAN 5 MG TAB PO SCH ×2 (09:08→21:47)
[2023-09-02] MEDS: BRIMONIDINE TARTRATE 0.2% DROPS 5 ML BTL RIGHT EYE SCH ×2 (09:08→21:48)
[2023-09-02] MEDS: ATORVASTATIN 40 MG TAB PO SCH (09:08)
[2023-09-02] MEDS: DORZOLAMIDE-TIMOLOL 2.23%/0.68 10ML BTL BOTH EYES SCH ×2 (09:08→21:47)
[2023-09-02] MEDS: FUROSEMIDE 40 MG TAB PO SCH (09:08)
[2023-09-02] MEDS: SODIUM ZIRCONIUM CYCLOSILICATE 10 GM PACKET PO SCH (09:08)
[2023-09-02] MEDS: FERROUS SULFATE 325 MG TAB PO SCH (09:08)
[2023-09-02] MEDS: FLUOROMETHOLONE 0.1% OPHTH DROPS 5 ML BTL BOTH EYES SCH ×2 (09:09→21:48)
[2023-09-02] MEDS: NYSTATIN 100,000UNIT/GM CREAM 30 GM TUBE TOPICAL SCH ×2 (09:10→21:48)
[2023-09-02] MEDS: TRIAMCINOLONE 0.1% CREAM 80 GM TUBE TOPICAL SCH ×2 (09:10→21:49)
[2023-09-02] MEDS: NYSTATIN 100,000 UNIT/GM POWD 15 GM TOPICAL SCH ×2 (09:10→21:48)
--- NOTE | 2023-09-02 13:19 | P.PN ---
Subjective Progress Note Date: 09/02/23 patient 78-year-old lady with past medical history significant for paroxysmal atrial fibrillation, chronic venous ulcers, chronic lymphedema was brought to the ER from home after complaining of generalized weakness and unable to take care of herself. Patient was admitted to the hospital in the beginning of July, at that time patient was discharged to rehab but patient signed he rself out earlier. Patient was showering yesterday and at time patient felt very weak and had to sit down in the shower, family tried to get her up but were unsuccessful. Patient didn't pass out. There was no complain of any weakness of any particular extremity. There was no complain of facial droop or slurred speech at that time. Patient denied any palpitation of the time. There is no complain of chest pain. Because of generalized weakness, EMS was called and patient was brought to the ER Initial lab work done in the ER showed WBC 4.6, hemoglobin 8.3, platelet count 135, sodium 144, potassium 5.3, BUN/creatinine 35, creatinine 0.73 AST 37, AST 45, alk phos 127 UA negative for infection Influenza A not detected Influenza B not detected RSV not detected COVID-19 not detected EKG done in the ER showed heart rate of 60, no ST segment elevation or depression seen, no T-wave inversions seen. Chest x-ray done in the ER correlate for CHF with pulmonary vascular congestion Patient admitted to internal medicine service 09/01. Patient seen and examined. Laying comfortably in the bed. Vital signs stable 09/02. Patient seen and examined. Case management working on placement. Den ies any lightheadedness or dizziness. States she has good appetite. REVIEW OF SYSTEMS: CONSTITUTIONAL: No fever, no malaise,. CARDIOVASCULAR: No chest pain, no palpitations, no syncope. PULMONARY: No shortness of breath, no cough, GASTROINTESTINAL: No diarrhea, no nausea, no vomiting, no abdominal pain. NEUROLOGICAL: No headaches, no weakness, PHYSICAL EXAMINATION: GENERAL: The patient is alert and oriented x3, not in any acute distress. Well developed, well nourished. HEENT: Pupils are round and equally reacting to light. EOMI. No scleral icterus. No conjunctival pallor. Normocephalic, atraumatic. No pharyngeal erythema. No thyromegaly. CARDIOVASCULAR: S1 and S2 present. No murmurs, rubs, or gallops. PULMONARY: Chest is clear to auscultation, no wheezing or crackles. ABDOMEN: Soft, nontender, nondistended, normoactive bowel sounds. No palpable organomegaly. MUSCULOSKELETAL: No joint swelling or deformity. EXTREMITIES: Chronic lymphedematous changes lower extremities bilaterally NEUROLOGICAL: Gross neurological examination did not reveal any focal deficits. SKIN: No rashes. Assessment and plan Generalized weakness Hyperkalemia paroxysmal atrial fib anemia Uninfected sacral decubitus ulcer Bilateral lower extremity chronic venous stasis ulcerations Bilateral lymphedema Monitor vital signs Monitor CBC Monitor CMP Follow-up precautions Strict I's and O's, daily weights Low potassium diet. Continue Lasix Continue wound care ID evaluated the patient, recommended no need for any antibiotics, recommended topical Mycolog cream Continue home meds PT and OT recommended rehab, waiting on placement In regards to hypertension continue Toprol, Lasix Regards to hyperlipidemia continue Lipitor Labs and medication were reviewed.. Continue same treatment. Continue with symptomatic treatment. Resume home medication. Monitor labs and vitals. DVT and GI prophylaxis. Further recommendations as per clinical course of the patient Dictation was produced using [employer] dictation software. please excuse any grammatical, word or spelling errors. Objective - Vital Signs Vital signs: Vital Signs Temp 97.7 F 09/02/23 08:00 Pulse 76 09/02/23 11:33 Resp 18 09/02/23 08:00 BP 137/67 09/02/23 08:00 Pulse Ox 96 09/02/23 08:00 FiO2 Intake & Output 09/01/23 09/02/23 09/02/23 18:59 06:59 18:59 Intake Total 100 118 Output Total 750 Balance -650 118 Weight 110.586 kg Intake: Oral 100 118 Output: Urine 750 Other: Voiding Method Diaper Diaper Diaper External Catheter External Catheter External Catheter # Voids 1 2 # Bowel Movements 1 - Labs CBC & Chem 7: 09/01/23 06:03 08/31/23 16:00
[2023-09-03] MEDS: IPRATROPIUM-ALBUTEROL 3 ML NEB INHALATION SCH ×7 (00:35→23:20)
[2023-09-03] MEDS: PANTOPRAZOLE 40 MG TABLET PO SCH (05:54)
[2023-09-03] MEDS: FERROUS SULFATE 325 MG TAB PO SCH (08:51)
[2023-09-03] MEDS: ATORVASTATIN 40 MG TAB PO SCH (08:51)
[2023-09-03] MEDS: METOPROLOL SUCCINATE (ER) 25 MG TAB.ER.24H PO SCH (08:51)
[2023-09-03] MEDS: APIXABAN 5 MG TAB PO SCH ×2 (08:51→22:14)
[2023-09-03] MEDS: FUROSEMIDE 40 MG TAB PO SCH (08:51)
[2023-09-03] MEDS: DORZOLAMIDE-TIMOLOL 2.23%/0.68 10ML BTL BOTH EYES SCH ×2 (08:51→22:15)
[2023-09-03] MEDS: BRIMONIDINE TARTRATE 0.2% DROPS 5 ML BTL RIGHT EYE SCH ×2 (08:52→22:14)
[2023-09-03] MEDS: NYSTATIN 100,000 UNIT/GM POWD 15 GM TOPICAL SCH ×2 (08:53→22:14)
[2023-09-03] MEDS: NYSTATIN 100,000UNIT/GM CREAM 30 GM TUBE TOPICAL SCH ×2 (08:53→22:15)
[2023-09-03] MEDS: TRIAMCINOLONE 0.1% CREAM 80 GM TUBE TOPICAL SCH ×2 (08:54→22:15)
[2023-09-03] MEDS: SODIUM ZIRCONIUM CYCLOSILICATE 10 GM PACKET PO SCH (08:54)
[2023-09-03] MEDS: FLUOROMETHOLONE 0.1% OPHTH DROPS 5 ML BTL BOTH EYES SCH ×2 (09:02→22:14)
[2023-09-03] MEDS ORDERED: guaiFENesin-Coden 100-10MG/5ML 10 ML CUP PO PRN (12:08)
--- NOTE | 2023-09-03 12:43 | P.PN ---
Subjective Progress Note Date: 09/03/23 patient 78-year-old lady with past medical history significant for paroxysmal atrial fibrillation, chronic venous ulcers, chronic lymphedema was brought to the ER from home after complaining of generalized weakness and unable to take care of herself. Patient was admitted to the hospital in the beginning of July, at that time patient was discharged to rehab but patient signed he rself out earlier. Patient was showering yesterday and at time patient felt very weak and had to sit down in the shower, family tried to get her up but were unsuccessful. Patient didn't pass out. There was no complain of any weakness of any particular extremity. There was no complain of facial droop or slurred speech at that time. Patient denied any palpitation of the time. There is no complain of chest pain. Because of generalized weakness, EMS was called and patient was brought to the ER Initial lab work done in the ER showed WBC 4.6, hemoglobin 8.3, platelet count 135, sodium 144, potassium 5.3, BUN/creatinine 35, creatinine 0.73 AST 37, AST 45, alk phos 127 UA negative for infection Influenza A not detected Influenza B not detected RSV not detected COVID-19 not detected EKG done in the ER showed heart rate of 60, no ST segment elevation or depression seen, no T-wave inversions seen. Chest x-ray done in the ER correlate for CHF with pulmonary vascular congestion Patient admitted to internal medicine service 09/01. Patient seen and examined. Laying comfortably in the bed. Vital signs stable 09/02. Patient seen and examined. Case management working on placement. Den ies any lightheadedness or dizziness. States she has good appetite. 09/03. Patient seen and examined. Still mourning patient was complaining of coughing spell, complaining of shortness of breath. Denies any fever or chills REVIEW OF SYSTEMS: CONSTITUTIONAL: No fever, no malaise,. CARDIOVASCULAR: No chest pain, no palpitations, no syncope. PULMONARY: As mentioned above GASTROINTESTINAL: No diarrhea, no nausea, no vomiting, no abdominal pain. NEUROLOGICAL: No headaches, no weakness, PHYSICAL EXAMINATION: GENERAL: The patient is alert and oriented x3, not in any acute distress. Well developed, well nourished. HEENT: Pupils are round and equally reacting to light. EOMI. No scleral icterus. No conjunctival pallor. Normocephalic, atraumatic. No pharyngeal erythema. No thyromegaly. CARDIOVASCULAR: S1 and S2 present. No murmurs, rubs, or gallops. PULMONARY: Chest is clear to auscultation, no wheezing or crackles. ABDOMEN: Soft, nontender, nondistended, normoactive bowel sounds. No palpable organomegaly. MUSCULOSKELETAL: No joint swelling or deformity. EXTREMITIES: Chronic lymphedematous changes lower extremities bilaterally NEUROLOGICAL: Gross neurological examination did not reveal any focal deficits. SKIN: No rashes. Assessment and plan Generalized weakness Hyperkalemia paroxysmal atrial fib anemia Uninfected sacral decubitus ulcer Bilateral lower extremity chronic venous stasis ulcerations Bilateral lymphedema Monitor vital signs Monitor CBC Monitor CMP Follow-up precautions Ordered chest x-ray, Mucinex Strict I's and O's, daily weights Low potassium diet. Continue Lasix Continue wound care ID evaluated the patient, recommended no need for any antibiotics, recommended topical Mycolog cream Continue home meds PT and OT recommended rehab, waiting on placement In regards to hypertension continue Toprol, Lasix Regards to hyperlipidemia continue Lipitor Labs and medication were reviewed.. Continue same treatment. Continue with symptomatic treatment. Resume home medication. Monitor labs and vitals. DVT and GI prophylaxis. Further recommendations as per clinical course of the patient Dictation was produced using [employer] dictation software. please excuse any grammatical, word or spelling errors. Objective - Vital Signs Vital signs: Vital Signs Temp 97.3 F L 09/03/23 07:34 Pulse 84 09/03/23 08:03 Resp 20 09/03/23 07:34 BP 125/62 09/03/23 07:34 Pulse Ox 97 09/03/23 07:34 FiO2 Intake & Output 09/02/23 09/03/23 09/03/23 18:59 06:59 18:59 Intake Total 358 360 Output Total 800 500 Balance -442 -500 360 Intake: Oral 358 360 Output: Urine 800 500 Other: Voiding Method Diaper Diaper External Catheter External Catheter # Voids 0 - Labs CBC & Chem 7: 09/01/23 06:03 08/31/23 16:00
--- NOTE | 2023-09-03 13:11 | CDI ---
Documentation Clarification Form Date: 09/03/2023 12:45:15 PM From: Gaby Lopez RN, CCDS Phone: [phone] Admit Date: 09/01/2023 11:04:00 AM Patient Name: Ashley Lang Visit Number: [id number] Discharge Date: ATTENTION: The Clinical Documentation Specialists (CDI) and [facility] Coding Staff appreciate your assistance in clarifying documentation. Please respond to the clarification below the line at the bottom and electronically sign. The CDI & [facility] Coding staff will review the response and follow-up if needed. Please note: Queries are made part of the Legal Health Record. If you have any questions, please contact the author of this message via ITS. Dr. Davonte Parrish Your patient has the documented diagnosis of unspecified CHF in the H/P and subsequent progress notes. Additional information regarding the type, acuity of CHF is requested. History/Risk Factors: Clinical Indicators: 78-year-old female presents to ED with weakness, increasing leg swelling and weeping from her lower extremities. 08/30 VS: 146/73 68 18 08/30 Labs: WBC 4.6, 8.3 HCT 26.7, K+5.3 CL 115, CO2 18 BUN 35, CR 0.73 Glucose 64 BNP: 647 Echocardiogram Results: (last reported 07/09) 08/30 Chest X Ray: Correlate for CHF with pulmonary vascular congestion, Small bilateral pleural effusions. Treatment: Toprol XL 25 MG PO Daily 08/30-09/03 Cozaar 25 mg PO Daily 08/30-08/30 Lasix 40 MG PO Daily 08/31 -09/03 In your professional opinion, can you please clarify the acuity and type of CHF if known? [ ] Chronic Systolic Heart Failure (reduced EF) [ ] Acute on Chronic Systolic Heart Failure (reduced EF) [ ] Acute Diastolic Heart Failure (preserved EF) [ x] Chronic Diastolic Heart Failure (preserved EF) [ ] Acute on Chronic Diastolic Heart Failure (preserved EF) [ ] Acute Systolic & Diastolic Heart Failure [ ] Chronic Systolic & Diastolic Heart Failure [ ] Other, please specify [ ] Unable to determine (Template Last Revised: October 2020) MTDD
[2023-09-03 13:21] LABS: ALT 32 U/L (4-34); AST 29 U/L (14-36); African American GFR (CKD) 61 (>60 ml/min/1.73 sqM); Albumin 2.9 g/dL (3.5-5.0); Albumin/Globulin Ratio 0.9; Alkaline Phosphatase 131 U/L (38-126); Anion Gap 10 mmol/L; Blood Urea Nitrogen 34 mg/dL (7-17); Calcium 8.8 mg/dL (8.4-10.2); Carbon Dioxide 20 mmol/L (22-30); Chloride 111 mmol/L (98-107); Globulin 3.4 g/dL; Glucose 89 mg/dL (74-99); Non-African American GFR(CKD) 53 (>60 ml/min/1.73 sqM); Potassium 4.1 mmol/L (3.5-5.1); Sodium 141 mmol/L (137-145); Total Bilirubin 0.6 mg/dL (0.2-1.3); Total Protein 6.3 g/dL (6.3-8.2)
[2023-09-03] MEDS: guaiFENesin 600 MG TABLET.ER PO SCH ×2 (13:33→22:14)
--- NOTE | 2023-09-03 13:37 | CDI ---
Documentation Clarification Form Date: 09/03/2023 01:12:23 PM From: Gaby Lopez RN, CCDS Phone: [phone] Admit Date: 09/01/2023 11:04:00 AM Patient Name: Ashley Lang Visit Number: [id number] Discharge Date: ATTENTION: The Clinical Documentation Specialists (CDI) and [facility] Coding Staff appreciate your assistance in clarifying documentation. Please respond to the clarification below the line at the bottom and electronically sign. The CDI & [facility] Coding staff will review the response and follow-up if needed. Please note: Queries are made part of the Legal Health Record. If you have any questions, please contact the author of this message via ITS. Dr. Davonte Parrish A stage II bilateral buttock pressure ulcer is documented in Nursing Wound Care assessment starting on 08/30/23 present on admission. Based on this information and the findings below, is there an additional diagnosis that is clinically appropriate for this patient? History/Risk Factors: OA), Pneumonia, Vascular Disorder, lower leg edema pedal edema, paroxysmal atrial fibrillation, chronic venous ulcers Clinical Indicators: 78-year-old female presents to ED with weakness, increasing leg swelling and weeping from her lower extremities. H/P and subsequent progress notes has uninfected sacral decubitus ulcer. Location: Bilateral buttock Wound description: Stage II Type 2 partial Flap loss Maceration, Erythema Treatment: Turn and Positioning Dressing: Foam w/Border Is there an additional diagnosis that is clinically appropriate for this patient? [ x ] Bilateral buttock Pressure Ulcer Stage 2, present on admission [ ] Other condition, please specify [ ] Unable to determine Clinical Definitions: Stage 1 Pressure Ulcer: intact skin, non-blanching redness of local area Stage 2 Pressure Ulcer: Partial thickness, loss of dermis, pink wound bed Stage 3 Pressure Ulcer: Full thickness tissue loss Stage 4 Pressure Ulcer: Full thickness tissue loss with exposed bone, tendon, or muscle. Unstageable pressure ulcer: Full thickness tissue loss in which the base of the ulcer is covered by slough (yellow, diamond, richard, green or brown) and/or eschar (diamond, brown or black) in the wound bed. (Template Last Revised: November 2020) MTDD
--- NOTE | 2023-09-03 14:09 | CDI ---
Documentation Clarification Form Date: 09/03/2023 01:43:35 PM From: Gaby Lopez RN, CCDS Phone: [phone] Admit Date: 09/01/2023 11:04:00 AM Patient Name: Ashley Lang Visit Number: [id number] Discharge Date: ATTENTION: The Clinical Documentation Specialists (CDI) and [facility] Coding Staff appreciate your assistance in clarifying documentation. Please respond to the clarification below the line at the bottom and electronically sign. The CDI & [facility] Coding staff will review the response and follow-up if needed. Please note: Queries are made part of the Legal Health Record. If you have any questions, please contact the author of this message via ITS. Dr. Davonte Parrish Your patient has the documented symptom of weakness. Additional clarification regarding the etiology/cause of this symptom is requested. History/Risk Factors: OA), Pneumonia, Vascular Disorder, lower leg edema pedal edema, paroxysmal atrial fibrillation, chronic venous ulcers Clinical Indicators: 78-year-old female presents to ED with weakness, frequent falls, unable to ambulate. She has increasing leg swelling and weeping from her lower extremities. She has generalized weakness. The patient is alert and oriented x3, not in any acute distress. Well developed, well nourished. 08/30 VS: 146/73 68 18 08/30 Labs: WBC 4.6, 8.3 HCT 26.7, K+5.3 CL 115, CO2 18 BUN 35, CR 0.73 Glucose 64 BNP: 647 Echocardiogram Results: (last reported 07/09) 08/30 Chest X Ray: Correlate for CHF with pulmonary vascular congestion, Small bilateral pleural effusions. Treatment: PT and OT Consult Lasix 40MG PO Daily Strict I'S and O's daily weights Monitor Labs and vitals Is there a corresponding diagnosis/etiology for this symptom of weakness? [ ] Age related physical debility. [ ] Age related cognitive decline. [ x] Unable to determine. [ ] Other, please specify. (Template Last Reviewed: October 2020) MTDD
--- NOTE | 2023-09-03 14:42 | XR ---
EXAMINATION TYPE: XR chest 1V portable DATE OF EXAM: 09/03/2023 Comparison: 08/30/2023 Clinical History: 78-year-old female SOB Findings: Heart borderline in size. Diffuse interstitial density remains unchanged. There may be a trace residu al left effusion. Impression: Similar mild interstitial changes and trace left effusion. Possible mild CHF.
[2023-09-03 15:09] LABS: Basophils # (A) 0 X 10*3/uL (0.00-0.10); Basophils % (A) 0 %; Eosinophils # (A) 0.04 X 10*3/uL (0.04-0.35); Eosinophils % (A) 0.7 %; HCT 22.9 % (37.2-46.3); HGB 7.2 g/dL (12.0-15.0); Lymphocytes # (A) 0.73 X 10*3/uL (0.90-5.00); Lymphocytes % (A) 13.3 %; MCH 29.5 pg (27.0-32.0); MCHC 31.4 g/dL (32.0-37.0); MCV 93.9 FL (80.0-97.0); Monocytes # (A) 0.61 X 10*3/uL (0.20-1.00); Monocytes % (A) 11.1 %; NRBC Per 100 WBC 0 X 10*3/uL (0.00-0.01); Neutrophils # (A) 4.08 X 10*3/uL (1.80-7.70); Neutrophils % (A) 74.5 %; Platelet Count 104 X 10*3/uL (140-440); RBC 2.44 X 10*6/uL (4.10-5.20); RDW 17.8 % (11.5-14.5); WBC 5.48 X 10*3/uL (4.50-10.00)
--- NOTE | 2023-09-03 16:37 | P.PN ---
Subjective Progress Note Date: 09/02/23 Principal diagnosis: Reason for follow-up is bilateral lower extremity swelling and venous stasis dermatitis Patient is a 78-year-old female with a past medical history s ignificant for pneumonia osteoarthritis and chronic swelling to bilateral lower extremity patient has been brought into the ER by EMS for evaluation of weakness and unable to get up also complaining to increasing swelling to the leg did have a complaint of venous stasis dermatitis On today's evaluation that is 09/02/2023 the patient did have normal blood pressure this morning patient is breathing comfortably on room air, the patient denies having any chest pain shortness of breath or cough no nausea vomiting no abdominal pain no pain to lower extremity. Patient did have white count of 4.5 creatinine 0.5 Objective - Vital Signs Vital signs: Vital Signs Temp 98.3 F 09/02/23 14:00 Pulse 80 09/02/23 15:31 Resp 20 09/02/23 14:00 BP 135/68 09/02/23 14:00 Pulse Ox 96 09/02/23 08:00 FiO2 Intake & Output 09/01/23 09/02/23 09/02/23 18:59 06:59 18:59 Intake Total 100 358 Output Total 750 800 Balance -650 -442 Weight 110.586 kg Intake: Oral 100 358 Output: Urine 750 800 Other: Voiding Method Diaper Diaper Diaper External Catheter External Catheter External Catheter # Voids 1 2 # Bowel Movements 1 - Exam GENERAL DESCRIPTION: An elderly female lying in bed in no distress RESPIRATORY SYSTEM: Unlabored breathing , decreased breath sounds at bases HEART: S1 S2 regular rate and rhythm , ABDOMEN: Soft , no tenderness EXTREMITIES: Diffuse swelling to bilateral lower extremity minimal redness no dr penn - Labs CBC & Chem 7: 09/03/23 12:24 09/03/23 12:24 Assessment and Plan (1) Chronic venous hypertension (idiopathic) with ulcer and inflammation of bilateral lower extremity Current Visit: No Status: Acute Code(s): I87.333 - CHRONIC VENOUS HTN W ULCER AND INFLAM OF BILATERAL LOW EXTRM SNOMED Code(s): 387824703420016 Plan: 1-patient with bilateral lower extremity swelling with pitting edema and some superficial laceration likely related to underlying cardiac etiology and concern for possible venous stasis dermatitis patient is clinically not behaving as cellulitis, Patient white count remains to be normal. 2patient to continue local treatment to the bilateral lower extremity with the Mycolog cream followed by Yordan wrap for compression questions concern answered Dictation was produced using [employer] dictation software. please excuse any grammatical, word or spelling errors. Time with Patient: Less than 30
--- NOTE | 2023-09-03 16:40 | P.PN ---
Subjective Progress Note Date: 09/03/23 Principal diagnosis: Reason for follow-up is bilateral lower extremity swelling and venous stasis dermatitis Patient is a 78-year-old female with a past medical history s ignificant for pneumonia osteoarthritis and chronic swelling to bilateral lower extremity patient has been brought into the ER by EMS for evaluation of weakness and unable to get up also complaining to increasing swelling to the leg did have a complaint of venous stasis dermatitis On today's evaluation that is 09/03/2023 the patient remains to be afebrile, patient is complaining of some shortness of breath and wheezing no chest pain or cough no nausea vomiting no abdominal pain no diarrhea or pain to the lower extremity. Patient did have white count of 5.48 creatinine is 1.02 patient did have a chest x-ray suggestive of interstitial changes trace effusion mild CHF Objective - Vital Signs Vital signs: Vital Signs Temp 97.3 F L 09/03/23 07:34 Pulse 80 09/03/23 11:24 Resp 20 09/03/23 07:34 BP 125/62 09/03/23 07:34 Pulse Ox 97 09/03/23 07:34 FiO2 Intake & Output 09/02/23 09/03/23 09/03/23 18:59 06:59 18:59 Intake Total 358 360 Output Total 800 500 Balance -442 -500 360 Intake: Oral 358 360 Output: Urine 800 500 Other: Voiding Method Diaper Diaper Diaper External Catheter External Catheter External Catheter # Voids 0 - Exam GENERAL DESCRIPTION: An elderly female lying in bed in no distress RESPIRATORY SYSTEM: Unlabored breathing , decreased breath sounds at bases HEART: S1 S2 regular rate and rhythm , ABDOMEN: Soft , no tenderness EXTREMITIES: Diffuse swelling to bilateral lower extremity minimal redness no drainage - Labs CBC & Chem 7: 09/03/23 12:24 09/03/23 12:24 Assessment and Plan (1) Chronic venous hypertension (idiopathic) with ulcer and inflammation of bilateral lower extremity Current Visit: No Status: Acute Code(s): I87.333 - CHRONIC VENOUS HTN W ULCER AND INFLAM OF BILATERAL LOW EXTRM SNOMED Code(s): 037786723097545 Plan: 1-patient with bilateral lower extremity swelling with pitting edema and some superficial laceration likely related to underlying cardiac etiology and concern for possible venous stasis dermatitis patient is clinically not behaving as cellulitis, Patient white count remains to be normal. 2patient to continue local treatment to the bilateral lower extremity with the Mycolog cream followed by Yordan wrap for compression 3-chest x-ray mostly suggestive of CHF being managed by admitting team clinical not behaving as pneumonia Dictation was produced using [employer] dictation software. please excuse any grammatical, word or spelling errors. Time with Patient: Less than 30
[2023-09-04] MEDS: IPRATROPIUM-ALBUTEROL 3 ML NEB INHALATION SCH ×4 (03:33→15:35)
[2023-09-04] MEDS: PANTOPRAZOLE 40 MG TABLET PO SCH (06:31)
[2023-09-04 08:42] VITALS: RESP 20
[2023-09-04] MEDS: APIXABAN 5 MG TAB PO SCH (10:03)
[2023-09-04] MEDS: guaiFENesin 600 MG TABLET.ER PO SCH (10:03)
[2023-09-04] MEDS: FERROUS SULFATE 325 MG TAB PO SCH (10:03)
[2023-09-04] MEDS: FUROSEMIDE 40 MG TAB PO SCH (10:03)
[2023-09-04] MEDS: NYSTATIN 100,000 UNIT/GM POWD 15 GM TOPICAL SCH (10:04)
[2023-09-04] MEDS: METOPROLOL SUCCINATE (ER) 25 MG TAB.ER.24H PO SCH (10:04)
[2023-09-04] MEDS: TRIAMCINOLONE 0.1% CREAM 80 GM TUBE TOPICAL SCH (10:04)
[2023-09-04] MEDS: ATORVASTATIN 40 MG TAB PO SCH (10:04)
[2023-09-04] MEDS: SODIUM ZIRCONIUM CYCLOSILICATE 10 GM PACKET PO SCH (10:04)
[2023-09-04] MEDS: NYSTATIN 100,000UNIT/GM CREAM 30 GM TUBE TOPICAL SCH (10:05)
[2023-09-04] MEDS: DORZOLAMIDE-TIMOLOL 2.23%/0.68 10ML BTL BOTH EYES SCH (10:05)
[2023-09-04] MEDS: BRIMONIDINE TARTRATE 0.2% DROPS 5 ML BTL RIGHT EYE SCH (10:05)
[2023-09-04] MEDS: FLUOROMETHOLONE 0.1% OPHTH DROPS 5 ML BTL BOTH EYES SCH (10:05)
[2023-09-04 12:23] VITALS: PULSE 80
--- NOTE | 2023-09-04 12:44 | P.DS ---
Providers Date of admission: 09/01/23 11:04 Expected date of discharge: 09/04/23 Attending physician: Krystin Cisneros MD Consults: 08/31/23 06:51 Consult Physician Routine Consulting Provider: Kenton Longoria Consult Reason/Comments: lower extremity ulcers Do you want consulting provider notified?: Yes Primary care physician: Maye Scruggs Hospital Course: Discharge diagnoses; Generalized weakness Hyperkalemia paroxysmal atrial fib anemia Chronic Diastolic heart failure Bilateral buttock pressure ulcer stage II present on admission Uninfected sacral decubitus ulcer Bilateral lower extremity chronic venous stasis ulcerations Bilateral lymphedema Hospital course; patient 78-year-old lady with past medical history significant for paroxysmal atrial fibrillation, chronic venous ulcers, chronic lymphedema was brought to the ER from home after complaining of generalized weakness and unable to take c are of herself. Patient was admitted to the hospital in the beginning of July, at that time patient was discharged to rehab but patient signed herself out earlier. Patient was showering yesterday and at time patient felt very weak and had to sit down in the shower, family tried to get her up but were unsuccessful. Patient didn't pass out. There was no complain of any weakness of any particular extremity. There was no complain of facial droop or slurred speech at that time. Patient denied any palpitation of the time. There is no complain of chest pain. Because of generalized weakness, EMS was called and patient was brought to the ER Initial lab work done in the ER showed WBC 4.6, hemoglobin 8.3, platelet count 135, sodium 144, potassium 5.3, BUN/creatinine 35, creatinine 0.73 AST 37, AST 45, alk phos 127 UA negative for infection Influenza A not detected Influenza B not detected RSV not detected COVID-19 not detected EKG done in the ER showed heart rate of 60, no ST segment elevation or depression seen, no T-wave inversions seen. Chest x-ray done in the ER correlate for CHF with pulmonary vascular congestion Patient admitted to internal medicine service 09/01. Patient seen and examined. Laying comfortably in the bed. Vital signs stable 09/02. Patient seen and examined. Case management working on placement. Denies any lightheadedness or dizziness. States she has good appetite. 09/03. Patient seen and examined. Still mourning patient was complaining of coughing spell, complaining of shortness of breath. Denies any fever or chills 09/04. Patient seen and examined. Labs reviewed, CBC 5.4, hemoglobin 7.2, sodium 141, potassium 4.1, BUN 34, creatinine 1.02. Chest x-ray done showed mild interstitial changes and trace left effusion .Patient being discharged to rehab in stable condition PHYSICAL EXAMINATION: GENERAL: The patient is alert and oriented x3, not in any acute distress. Well developed, well nourished. HEENT: Pupils are round and equally reacting to light. EOMI. No scleral icterus. No conjunctival pallor. Normocephalic, atraumatic. No pharyngeal erythema. No thyromegaly. CARDIOVASCULAR: S1 and S2 present. No murmurs, rubs, or gallops. PULMONARY: Chest is clear to auscultation, no wheezing or crackles. ABDOMEN: Soft, nontender, nondistended, normoactive bowel sounds. No palpable organomegaly. MUSCULOSKELETAL: No joint swelling or deformity. EXTREMITIES: Chronic lymphedematous changes lower extremities bilaterally NEUROLOGICAL: Gross neurological examination did not reveal any focal deficits. SKIN: Bilateral buttock pressure ulcer stage II Dictation was produced using [employer] dictation software. please excuse any grammatical, word or spelling errors. Patient Condition at Discharge: Fair Plan - Discharge Summary Discharge Rx Participant: Yes New Discharge Prescriptions: New Triamcinolone 0.1% Cream [Kenalog 0.1% Cream] 1 applic TOPICAL BID each Continue Brimonidine Tartrate [Alphagan P 0.2% Ophth Soln] 1 drop RIGHT EYE BID Furosemide [Lasix] 40 mg PO DAILY Apixaban [Eliquis] 5 mg PO BID tab Atorvastatin [Lipitor] 40 mg PO DAILY tab Metoprolol Succinate (ER) [Toprol XL] 25 mg PO DAILY tab Albuterol Inhaler [Ventolin Hfa Inhaler] 1 - 2 puff INHALATION RT-TID PRN PRN Reason: Shortness Of Breath Omeprazole 20 mg PO AC-BRKFST Fluorometholone 0.1% Ophth Megan [Fml] 1 drop BOTH EYES BID Dorzolamide-Timol 2.23%/0.68% [Cosopt] 1 drop BOTH EYES BID Ferrous Sulfate [Iron (65 MG Elemental)] 325 mg PO DAILY Losartan [Cozaar] 25 mg PO DAILY Discontinued Potassium Chloride [Klor-Con M10] 10 meq PO DAILY Discharge Medication List Brimonidine Tartrate [Alphagan P 0.2% Ophth Soln] 1 drop RIGHT EYE BID 01/27/23 [History] Fluorometholone 0.1% Ophth Megan [Fml] 1 drop BOTH EYES BID 01/27/23 [History] Dorzolamide-Timol 2.23%/0.68% [Cosopt] 1 drop BOTH EYES BID 07/08/23 [History] Furosemide [Lasix] 40 mg PO DAILY 07/08/23 [History] Apixaban [Eliquis] 5 mg PO BID tab 07/15/23 [Rx] Atorvastatin [Lipitor] 40 mg PO DAILY tab 07/15/23 [Rx] Metoprolol Succinate (ER) [Toprol XL] 25 mg PO DAILY tab 07/15/23 [Rx] Albuterol Inhaler [Ventolin Hfa Inhaler] 1 - 2 puff INHALATION RT-TID PRN 08/30/23 [History] Ferrous Sulfate [Iron (65 MG Elemental)] 325 mg PO DAILY 08/30/23 [History] Losartan [Cozaar] 25 mg PO DAILY 08/30/23 [History] Omeprazole 20 mg PO AC-BRKFST 08/30/23 [History] Triamcinolone 0.1% Cream [Kenalog 0.1% Cream] 1 applic TOPICAL BID each 09/04/23 [Rx] Follow up Appointment(s)/Referral(s): Maye Scruggs MD [Primary Care Provider] - 1-2 days Discharge Disposition: TRANSFER TO SNF/ECF
[2023-09-04 15:58] VITALS: BP 130/69; TEMP 97.5
== END 2023-09-04 18:13 | DRG 300 ==
LOC: EC 12:11 → 6NMEDSUR 15:55 → OBSVTOIN 09-01 11:04 → 6NMEDSUR 09-04 02:20
PROVIDERS: ADMIT Internal Medicine; ATTEND Internal Medicine
DX: I87.333 Chronic venous hypertension (idiopathic) with ulcer and inflammation of bilateral lower extremity (principal); I50.32 Chronic diastolic (congestive) heart failure; L97.929 Non-pressure chronic ulcer of unspecified part of left lower leg with unspecified severity; L97.919 Non-pressure chronic ulcer of unspecified part of right lower leg with unspecified severity; L89.312 Pressure ulcer of right buttock, stage 2; L89.322 Pressure ulcer of left buttock, stage 2; I11.0 Hypertensive heart disease with heart failure; I48.0 Paroxysmal atrial fibrillation; D64.9 Anemia, unspecified; E78.5 Hyperlipidemia, unspecified; E87.5 Hyperkalemia; I89.0 Lymphedema, not elsewhere classified; R29.6 Repeated falls; M19.90 Unspecified osteoarthritis, unspecified site; R68.0 Hypothermia, not associated with low environmental temperature; Z79.01 Long term (current) use of anticoagulants; Z79.899 Other long term (current) drug therapy
CPT/HCPCS: 36415; 71045; 71046; 80053; 81003; 82570; 83605; 83735; 83880; 84100; 84132; 84145; 84484; 85025; 85610; 85652; 85730; 87636; 93005; 94640; 99285

== ENCOUNTER 2023-12-17 19:39 | Inpatient (IN) | payer MEDICARE, OTHER ==
--- NOTE | 2023-12-17 20:35 | ED ---
Neuro HPI - General Source: patient, EMS Mode of arrival: EMS Limitations: no limitations - History of Present Illness Is the patient presenting with stroke symptoms?: No <Ivonne Garcia - Last Filed: 12/17/23 21:50> <MarissaGurvinder cortes Fay - Last Filed: 12/17/23 23:06> - General Chief Complaint: Neuro Symptoms/Deficit Stated Complaint: Generalized weakness - History of Present Illness Initial Comments: 78-year-old female with past medical history of chronic lymphedema, A-fib on Eliquis who presents to the emergency department with increased weakness for the past day. According to the daughter the patient was ambulatory yesterday. Today the patient has been unable to get out of bed. He has not been eating or drinking. Patient reports that she has weakness all over. She denies any lateralizing symptoms. Daughter feels as if she has some slurred speech. Patient remains alert and oriented x 4. She denies any headaches. No nausea or vomiting. Denies any weakness in her upper extremities. Localizes the weakness to her lower extremities. Denies any fevers. Of note the patient had glaucoma surgery [address] Mahdi Singh. He had a follow-up appointment on Thursday. Reports that she had poor vision out of her right eye however at this point it feels worse. She is on ofloxacin drops. She denies any eye pain. No headaches. No facial droop. No other alleviating, precipitating modifying factors (Ivonne Garcia) - Related Data Home Medications: Home Medications Medication Instructions Recorded Confirmed Brimonidine Tartrate [Alphagan P 1 drop RIGHT EYE BID 01/27/23 08/30/23 0.2% Ophth Soln] Fluorometholone 0.1% Ophth Megan 1 drop BOTH EYES BID 01/27/23 08/30/23 [Fml] Dorzolamide-Timol 2.23%/0.68% 1 drop BOTH EYES BID 07/08/23 08/30/23 [Cosopt] Furosemide [Lasix] 40 mg PO DAILY 07/08/23 08/30/23 Albuterol Inhaler [Ventolin Hfa 1 - 2 puff INHALATION RT-TID PRN 08/30/23 08/30/23 Inhaler] Ferrous Sulfate [Iron (65 MG 325 mg PO DAILY 08/30/23 08/30/23 Elemental)] Losartan [Cozaar] 25 mg PO DAILY 08/30/23 08/30/23 Omeprazole 20 mg PO AC-BRKFST 08/30/23 08/30/23 Previous Rx's Medication Instructions Recorded Apixaban [Eliquis] 5 mg PO BID tab 07/15/23 Atorvastatin [Lipitor] 40 mg PO DAILY tab 07/15/23 Metoprolol Succinate (ER) [Toprol 25 mg PO DAILY tab 07/15/23 XL] Triamcinolone 0.1% Cream [Kenalog 1 applic TOPICAL BID each 09/04/23 0.1% Cream] Allergies/Adverse Reactions: Allergies Allergy/AdvReac Type Severity Reaction Status Date / Time No Known Allergies Allergy Verified 12/17/23 19:49 Review of Systems ROS Other: All systems not noted in ROS Statement are negative. <Ivonne Garcia - Last Filed: 12/17/23 21:50> ROS Other: All systems not noted in ROS Statement are negative. <Gurvinder Arteaga - Last Filed: 12/17/23 23:06> ROS Statement: Those systems with pertinent positive or pertinent negative responses have been documented in the HPI. General Exam Limitations: no limitations General appearance: alert, in no apparent distress Head exam: Present: atraumatic, normocephalic, normal inspection Eye exam: Present: conjunctival injection, other (Chemosis. Hypopyon present in the right eye. Patient can only visualize light. She remains with her eye closed). Absent: periorbital swelling ENT exam: Present: normal exam, mucous membranes moist Neck exam: Present: normal inspection. Absent: tenderness, meningismus, lymphadenopathy Respiratory exam: Present: normal lung sounds bilaterally. Absent: respiratory distress, wheezes, rales, rhonchi, stridor Cardiovascular Exam: Present: regular rate, normal rhythm, normal heart sounds. Absent: systolic murmur, diastolic murmur, rubs, gallop, clicks GI/Abdominal exam: Present: soft, normal bowel sounds. Absent: distended, tenderness, guarding, rebound, rigid Extremities exam: Present: normal inspection, full ROM, normal capillary refill. Absent: tenderness, pedal edema, joint swelling, calf tenderness Back exam: Present: normal inspection Neurological exam: Present: alert, oriented X3, CN II-XII intact Psychiatric exam: Present: normal affect, normal mood Skin exam: Present: warm, dry, intact, normal color. Absent: rash <Ivonne Garcia - Last Filed: 12/17/23 21:50> Stroke MDM <Ivonne Garcia - Last Filed: 12/17/23 21:50> - Lab Data Result diagrams: 12/17/23 21:08 12/17/23 21:08 <Gurvinder Arteaga Fay - Last Filed: 12/17/23 23:06> - Lab Data Lab Results 12/17/23 12/17/23 12/17/23 Range/Units 21:08 21:08 21:08 WBC 3.8 (3.8-10.6) k/uL RBC 3.48 L (3.80-5.40) m/uL Hgb 10.3 L (11.4-16.0) gm/dL Hct 33.1 L (34.0-46.0) % MCV 95.0 (80.0-100.0) fL MCH 29.6 (25.0-35.0) pg MCHC 31.2 (31.0-37.0) g/dL RDW 17.3 H (11.5-15.5) % MPV 10.1 Hypochromasia Slight Anisocytosis Slight PT 11.3 (10.0-12.5) sec INR 1.0 (<1.2) APTT 32.7 H (22.0-30.0) sec Sodium 141 (137-145) mmol/L Potassium 5.7 H (3.5-5.1) mmol/L Chloride 113 H (98-107) mmol/L Carbon Dioxide 25 (22-30) mmol/L Anion Gap 3 mmol/L BUN 37 H (7-17) mg/dL Creatinine 1.02 (0.52-1.04) mg/dL Est GFR (CKD-EPI)AfAm 61 (>60 ml/min/1.73 sqM) Est GFR (CKD-EPI)NonAf 53 (>60 ml/min/1.73 sqM) Glucose 81 (74-99) mg/dL Calcium 9.4 (8.4-10.2) mg/dL Total Bilirubin 0.4 (0.2-1.3) mg/dL AST 31 (14-36) U/L ALT 33 (4-34) U/L Alkaline Phosphatase 154 H (38-126) U/L Creatine Kinase 71 (30-135) U/L Troponin I (0.000-0.034) ng/mL C-Reactive Protein <0.5 (<1.0) mg/dL Total Protein 7.2 (6.3-8.2) g/dL Albumin 3.5 (3.5-5.0) g/dL Influenza Type A (PCR) (Not Detectd) Influenza Type B (PCR) (Not Detectd) RSV (PCR) (Not Detectd) SARS-CoV-2 (PCR) (Not Detectd) 12/17/23 12/17/23 Range/Units 21:08 21:08 WBC (3.8-10.6) k/uL RBC (3.80-5.40) m/uL Hgb (11.4-16.0) gm/dL Hct (34.0-46.0) % MCV (80.0-100.0) fL MCH (25.0-35.0) pg MCHC (31.0-37.0) g/dL RDW (11.5-15.5) % MPV Hypochromasia Anisocytosis PT (10.0-12.5) sec INR (<1.2) APTT (22.0-30.0) sec Sodium (137-145) mmol/L Potassium (3.5-5.1) mmol/L Chloride (98-107) mmol/L Carbon Dioxide (22-30) mmol/L Anion Gap mmol/L BUN (7-17) mg/dL Creatinine (0.52-1.04) mg/dL Est GFR (CKD-EPI)AfAm (>60 ml/min/1.73 sqM) Est GFR (CKD-EPI)NonAf (>60 ml/min/1.73 sqM) Glucose (74-99) mg/dL Calcium (8.4-10.2) mg/dL Total Bilirubin (0.2-1.3) mg/dL AST (14-36) U/L ALT (4-34) U/L Alkaline Phosphatase (38-126) U/L Creatine Kinase (30-135) U/L Troponin I <0.012 (0.000-0.034) ng/mL C-Reactive Protein (<1.0) mg/dL Total Protein (6.3-8.2) g/dL Albumin (3.5-5.0) g/dL Influenza Type A (PCR) Not Detected (Not Detectd) Influenza Type B (PCR) Not Detected (Not Detectd) RSV (PCR) Not Detected (Not Detectd) SARS-CoV-2 (PCR) Not Detected (Not Detectd) - Medical Decision Making Was pt. sent in by a medical professional or institution (, PA, VICE PRESIDENT INDUSTRIAL RELATIONS, urgent care, hospital, or [facility]...) When possible be specific @ -No Did you speak to anyone other than the patient for history (EMS, parent, family, police, friend...)? What history was obtained from this source @ -Spoke with EMS and the daughter for history Did you review nursing and triage notes (agree or disagree)? Why? @ -I reviewed and agree with nursing and triage notes Were old charts reviewed (outside hosp., previous admission, EMS record, old EKG, old radiological studies, urgent care reports/EKG's, [facility] records)? Report findings @ -No old charts were reviewed Differential Diagnosis (chest pain, altered mental status, abdominal pain women, abdominal pain men, vaginal bleeding, weakness, fever, dyspnea, syncope, headache, dizziness, GI bleed, back pain, seizure, CVA, palpatations, mental health, musculoskeletal)? @ -Differential Weakness: Hypoglycemia, shock, sepsis, hyponatremia, anemia, infection, CO, ETOH, adverse medicine reaction, overdose, stroke, this is not meant to be an all-inclusive list. EKG interpreted by me (3pts min.). @ -Yes and demonstrates sinus bradycardia with a rate of 52. Parable 228. QRS 96. QTc of 411. No acute ST segment elevations or depressions. No signs of high degree block X-rays interpreted by me (1pt min.). @ -Pending at this time CT interpreted by me (1pt min.). @ -Pending at this time U/S interpreted by me (1pt. min.). @ -None done What testing was considered but not performed or refused? (CT, X-rays, U/S, labs)? Why? @ -None What meds were considered but not given or refused? Why? @ -None Did you discuss the management of the patient with other professionals (professionals i.e. Dr., PA, VICE PRESIDENT [employer], lab, RT, psych nurse, social service agency director, chief investment officer, teacher, ecological technical officer, case management director)? Give summary @ -Spoke with Dr. Arteaga who will follow-up on the patient Was smoking cessation discussed for >3mins.? @ -No Was critical care preformed (if so, how long)? @ -No Were there social determinants of health that impacted care today? How? (Ho melessness, low income, unemployed, alcoholism, drug addiction, transportation, low edu. Level, literacy, decrease access to med. care, intermediate, rehab)? @ -No Was there de-escalation of care discussed even if they declined (Discuss DNR or withdrawal of care, Hospice)? DNR status @ -No What co-morbidities impacted this encounter? (DM, HTN, Smoking, COPD, CAD, Cancer, CVA, ARF, Chemo, Hep., AIDS, mental health diagnosis, sleep apnea, morbid obesity)? @ -A-fib, lymphedema, glaucoma Was patient admitted / discharged? Hospital course, mention meds given and route, prescriptions, significant lab abnormalities, going to OR and other pertinent info. @ -Upon arrival patient was placed into room 17. Thorough history and physical exam was performed. Patient is alert and oriented x 4 with no focal neurologic deficit at this time. Laboratory studies were conducted. CT imaging is performed. Patient will be signed out to Dr. Arteaga pending laboratory studies and imaging Undiagnosed new problem with uncertain prognosis? @ -Yes Drug Therapy requiring intensive monitoring for toxicity (Heparin, Nitro, Insulin, Cardizem)? @ -No Were any procedures done? @ -No Diagnosis/symptom? @ -Acute generalized weakness, acute hypopypon, status post glaucoma surgery Acute, or Chronic, or Acute on Chronic? @ -Acute Uncomplicated (without systemic symptoms) or Complicated (systemic symptoms)? @ -Complicated Side effects of treatment? @ -No Exacerbation, Progression, or Severe Exacerbation? @ -No Poses a threat to life or bodily function? How? (Chest pain, USA, CO, pneumonia, PE, COPD, DKA, ARF, appy, cholecystitis, CVA, Diverticulitis, Homicidal, Suicidal, threat to staff... and all critical care pts) @ -No (Ivonne Garcia) Patient reevaluated, she is alert and oriented. She has no focal deficits. She has drainage from the right eye. I did review the information from the brass cleaner who is aware of the findings in the right eye and has the patient on appropriate treatment. Patient is quite weak and is unable to ambulate. I do think she would benefit from inpatient stay at this time because she lives alone. She may require PT evaluation and possible rehabilitation. Admitted to this institution. Admitted to [facility]. (Gurvinder Arteaga) Past Medical History Past Medical History: Osteoarthritis (OA), Pneumonia, Vascular Disorder Additional Past Medical History / Comment(s): lower leg edema History of Any Multi-Drug Resistant Organisms: None Reported Past Surgical History: Appendectomy, Joint Replacement, Tubal Ligation Additional Past Surgical History / Comment(s): madeline hip and knees total replacement; cat sx with lens implants both eyes Past Anesthesia/Blood Transfusion Reactions: No Reported Reaction Past Psychological History: No Psychological Hx Reported Smoking Status: Never smoker Past Alcohol Use History: None Reported Past Drug Use History: None Reported - Past Family History Father Additional Family Medical History / Comment(s): PASSED OF OLD AGE Mother Additional Family Medical History / Comment(s): PASSED OF OLD AGE <Ivonne Garcia - Last Filed: 12/17/23 21:50> Course Vital Signs 12/17/23 19:41 Temperature 96.9 F L Pulse Rate 53 L Respiratory 18 Rate Blood Pressure 139/70 O2 Sat by Pulse 98 Oximetry Disposition <Ivonne Garcia - Last Filed: 12/17/23 21:50> Is patient prescribed a controlled substance at d/c from ED?: No Time of Disposition: 23:06 <Gurvinder Arteaga - Last Filed: 12/17/23 23:06> Clinical Impression: Unable to ambulate, Weakness Disposition: ADMITTED IP TO THIS [facility] Condition: Stable Referrals: Maye Scruggs MD [Primary Care Provider] - 1-2 days
[2023-12-17 21:36] LABS: Anisocytosis Slight; Basophils % (A) 0 %; Eosinophils % (A) 0 %; HCT 33.1 % (34.0-46.0); HGB 10.3 gm/dL (11.4-16.0); Hypochromasia Slight; Lymphocytes # (A) 0.7 k/uL (1.0-4.8); Lymphocytes % (A) 17 %; MCH 29.6 pg (25.0-35.0); MCHC 31.2 g/dL (31.0-37.0); Mean Platelet Volume 10.1; Monocytes # (A) 0.2 k/uL (0-1.0); Monocytes % (A) 5 %; Neutrophils # (A) 2.9 k/uL (1.3-7.7); Neutrophils % (A) 75 %; RBC 3.48 m/uL (3.80-5.40); RDW 17.3 % (11.5-15.5); WBC 3.8 k/uL (3.8-10.6)
[2023-12-17 21:40] LABS: Partial Thromboplastin Time 32.7 sec (22.0-30.0); Prothrombin Time 11.3 sec (10.0-12.5)
[2023-12-17 22:09] LABS: ALT 33 U/L (4-34); AST 31 U/L (14-36); African American GFR (CKD) 61 (>60 ml/min/1.73 sqM); Albumin 3.5 g/dL (3.5-5.0); Alkaline Phosphatase 154 U/L (38-126); Anion Gap 3 mmol/L; Blood Urea Nitrogen 37 mg/dL (7-17); C Reactive Protein <0.5 mg/dL (<1.0); Calcium 9.4 mg/dL (8.4-10.2); Carbon Dioxide 25 mmol/L (22-30); Chloride 113 mmol/L (98-107); Creatine Kinase 71 U/L (30-135); Glucose 81 mg/dL (74-99); Non-African American GFR(CKD) 53 (>60 ml/min/1.73 sqM); Potassium 5.7 mmol/L (3.5-5.1); Sodium 141 mmol/L (137-145); Total Bilirubin 0.4 mg/dL (0.2-1.3); Total Protein 7.2 g/dL (6.3-8.2)
--- NOTE | 2023-12-17 22:24 | CT ---
EXAMINATION TYPE: CT brain wo con CT DLP: 1153.4 mGycm, Automated exposure control for dose reduction was used. DATE OF EXAM: 12/17/2023 9:36 PM COMPARISON: MRI brain 07/14/2023. CLINICAL INDICATION:Female, 78 years old with history of Neuro deficit, acute, stroke suspected, ams TECHNIQUE: Brain: Axial CT images of the brain were obtained with coronal and sagittal reformats created and rev iewed. Contrast used: None. Oral contrast used: None. FINDINGS: Extra-axial spaces: No abnormal extra-axial fluid collections. Ventricular system: Ventricles appear dilated in proportion to the degree of cerebral atrophy. Cerebral parenchyma: No increased attenuation to suggest acute intraparenchymal hemorrhage. The gra y-white matter interface appears maintained. Mild/moderate generalized brain atrophy. Scattered hyp oattenuating areas are seen within the cerebral white matter, nonspecific but most often seen with ch ronic microvascular ischemic changes; these areas appear generally concordant with the prior MRI T2 F LAIR signal hyperintensities. Cerebellum: No acute abnormality. Mass effect: No evidence of mass effect or midline shift. Intracranial vasculature: Atherosclerotic calcifications of the larger arteries near the skull base. Soft tissues: No acute or concerning abnormality. Visualized orbits: There are curved radiodensities along the lateral margins of the globes consisten t with prior ophthalmologic surgery. There may have been lens replacements. There is abnormal density seen within the vitreous chamber of the right globe not evident on the prior MRI which could represe nt vitreous hemorrhage, retinal detachment, or other abnormality; correlate with ophthalmologic histo ry and exam. No acute intraorbital abnormality is otherwise identified. Calvarium/osseous structures: No evidence of calvarial fracture. Nasal septal deviation towards the l eft. Paranasal sinuses and mastoid air cells: Clear. MRI is more sensitive for detecting acute processes such as infarct, and may be considered if clinica lly warranted. IMPRESSION: 1. No CT evidence of an acute intracranial abnormality. 2. Atrophy and chronic microvascular ischemic white matter changes. 3. Orbital abnormalities as described.
--- NOTE | 2023-12-17 22:54 | XR ---
EXAMINATION TYPE: XR chest 2V DATE OF EXAM: 12/17/2023 9:32 PM CLINICAL INDICATION:Female, 78 years old with history of altered mental status; [facility] COMPARISON: 09/03/2023 TECHNIQUE: XR chest 2V. Frontal and lateral views of the chest.. FINDINGS: Lines/Tubes/Devices: No indwelling lines are seen. Heart/mediastinum: Heart appears mildly enlarged. Mediastinum appears stable. Atherosclerotic calcifications of the aorta. Pulmonary vascularity: Mild pulmonary vascular congestion. Mildly increased interstitial markings can be seen with edema, with an element of chronic change possible. Lungs/Pleura: There is no evidence of pleural effusion, focal consolidation, or pneumothorax. Musculoskeletal: No acute osseous abnormality demonstrated in the limits of the exam. Mild/moderate degenerative changes of the spine and shoulders. Other findings: None. IMPRESSION: Cardiomegaly with mild congestive changes. Correlate for mild CHF.
[2023-12-17] MEDS ORDERED: ACETAMINOPHEN TAB 325 MG TAB PO PRN (23:03)
[2023-12-17] MEDS ORDERED: NALOXONE 0.4 MG/ML 1 ML VIAL IV PRN (23:03)
[2023-12-17 23:16] LABS: Poikilocytosis (M) Present
[2023-12-17 23:18] LABS: Platelet Count 94 k/uL (150-450)
[2023-12-18] MEDS: SODIUM CHLORIDE 0.9% 1,000 ML IV SCH (01:17)
[2023-12-18] MEDS: APIXABAN 5 MG TAB PO SCH (01:23)
[2023-12-18 01:53] LABS: Appearance,Urine Cloudy (Clear); Bacteria,Urine Many /hpf; Bilirubin,Urine Negative (Negative); Blood,Urine Moderate (Negative); Color,Urine Colorless; Glucose,Urine (UA) Negative (Negative); Ketones,Urine Negative (Negative); Leukocyte Esterase,Urine Large (Negative); Mucus,Urine Rare /hpf; Nitrite,Urine Positive (Negative); Protein,Urine Negative (Negative); RBC,Urine 8 /hpf (0-5); Specific Gravity,Urine 1.012 (1.001-1.035); Squamous Epithelial Cell,Urine 1 /hpf (0-4); Transitional Epi Cells,Urine <1 /hpf (0-1); Urobilinogen,Urine <2.0 mg/dL (<2.0); WBC,Urine 31 /hpf (0-5)
[2023-12-18 09:01] LABS: Calcium 9.1 mg/dL (8.7-10.3); Chloride 112 mmol/L (96-109); Glucose 97 mg/dL (70-110); Potassium 5.1 mmol/L (3.5-5.5); Sodium 144 mmol/L (135-145)
[2023-12-18] MEDS: METOPROLOL SUCCINATE (ER) 25 MG TAB.ER.24H PO SCH (13:39)
--- NOTE | 2023-12-18 14:27 | P.HPIM ---
History of Present Illness H&P Date: 12/18/23 Chief Complaint: Generalized weakness 78-year-old female with past medical history of chronic lymphedema, A-fib on Eliquis who presents to the emergency department with increased weakness for the past day. According to the daughter the patient was ambulatory yesterday. Tod ay the patient has been unable to get out of bed. He has not been eating or drinking. Patient reports that she has weakness all over. She denies any lateralizing symptoms. Daughter feels as if she has some slurred speech. Patient remains alert and oriented x 4. She denies any headaches. No nausea or vomiting. Denies any weakness in her upper extremities. Localizes the weakness to her lower extremities. Denies any fevers. Of note the patient had glaucoma surgery [address] Mahdi Singh. He had a follow-up appointment on Thursday. Reports that she had poor vision out of her right eye however at this point it feels worse. She is on ofloxacin drops. She denies any eye pain. No headaches. No facial droop. No other alleviating, precipitating modifying factors Blood work completed in ED reveals a WBC of 3.8, hemoglobin of 10.3 and platelet count of 33.1, sodium 141, potassium 5.7, BUNs/creatinine of 37/zero 1.02 and blood glucose of 81, alkaline phosphatase of 154, troponin less than 0.012 UA is positive for blood, nitrites, leukocyte esterase, WBCs and bacteria Brain CT is negative for any acute intracranial abnormality, atrophy and chronic microvascular ischemic white matter changes Chest x-ray reveals cardiomegaly with mild congestive changes. Correlate for mi ld CHF EKG reveals sinus bradycardia with first-degree AV block Review of Systems ROS unobtainable: due to mental status Past Medical History Past Medical History: Eye Disorder, Osteoarthritis (OA), Pneumonia, Vascular D isorder Additional Past Medical History / Comment(s): lower leg edema History of Any Multi-Drug Resistant Organisms: None Reported Past Surgical History: Appendectomy, Joint Replacement, Tubal Ligation Additional Past Surgical History / Comment(s): madeline hip and knees total replacement; cat sx with lens implants both eyes, surgery for glaucoma Past Anesthesia/Blood Transfusion Reactions: No Reported Reaction Past Psychological History: No Psychological Hx Reported Smoking Status: Never smoker Past Alcohol Use History: None Reported Past Drug Use History: None Reported - Past Family History Father Additional Family Medical History / Comment(s): PASSED OF OLD AGE per patient Mother Additional Family Medical History / Comment(s): PASSED OF OLD AGE per patient Medications and Allergies Home Medications Medication Instructions Recorded Confirmed Type Brimonidine Tartrate [Alphagan P 1 drop RIGHT EYE BID 01/27/23 12/18/23 History 0.2% Ophth Soln] Fluorometholone 0.1% Ophth Megan 1 drop LEFT EYE BID 01/27/23 12/18/23 History [Fml] Furosemide [Lasix] 40 mg PO DAILY 07/08/23 12/18/23 History Apixaban [Eliquis] 5 mg PO BID tab 07/15/23 12/18/23 Rx Atorvastatin [Lipitor] 40 mg PO DAILY tab 07/15/23 12/18/23 Rx Metoprolol Succinate (ER) [Toprol 25 mg PO DAILY tab 07/15/23 12/18/23 Rx XL] Albuterol Inhaler [Ventolin Hfa 1 - 2 puff INHALATION RT-TID PRN 08/30/23 12/18/23 History Inhaler] Losartan [Cozaar] 25 mg PO DAILY 08/30/23 12/18/23 History Omeprazole 20 mg PO AC-BRKFST 08/30/23 12/18/23 History Dorzolamide-Timol 2.23%/0.68% 1 drop LEFT EYE BID 12/18/23 12/18/23 History [Cosopt] Latanoprost Ophth [Xalatan 0.005%] 1 drop LEFT EYE BID 12/18/23 12/18/23 History prednisoLONE ACETATE 1% OPHTH 1 drop RIGHT EYE QID 12/18/23 12/18/23 History [Pred Forte 1%] Allergies Allergy/AdvReac Type Severity Reaction Status Date / Time No Known Allergies Allergy Verified 12/18/23 06:52 Physical Exam Vitals: Vital Signs Temp Pulse Pulse Resp BP BP Pulse Ox 12/18/23 07:59 97.2 F L 87 18 147/70 95 12/18/23 06:00 94.2 F L 12/18/23 05:01 16 12/18/23 05:00 93.8 F L 67 16 136/81 97 12/18/23 03:56 92.3 F L 12/18/23 02:40 90.8 F L 12/18/23 01:51 90.7 F L 12/18/23 00:55 58 L 16 155/70 96 12/17/23 23:24 53 L 16 114/68 98 12/17/23 22:05 54 L 16 121/61 98 12/17/23 19:41 96.9 F L 53 L 18 139/70 98 Intake and Output 12/17/23 12/18/23 12/18/23 22:59 06:59 14:59 Other: Voiding Method Diaper External Catheter Incontinent External Catheter # Voids 1 Weight 99.79 kg 99.79 kg General appearance: alert, in no apparent distress Head exam: Present: atraumatic, normocephalic, normal inspection Eye exam: Present: conjunctival injection, other (Chemosis. Hypopyon present in the right eye. Patient can only visualize light. She remains with her eye closed). Absent: periorbital swelling ENT exam: Present: normal exam, mucous membranes moist Neck exam: Present: normal inspection. Absent: tenderness, meningismus, lymphadenopathy Respiratory exam: Present: normal lung sounds bilaterally. Absent: respiratory distress, wheezes, rales, rhonchi, stridor Cardiovascular Exam: Present: regular rate, normal rhythm, normal heart sounds. Absent: systolic murmur, diastolic murmur, rubs, gallop, clicks GI/Abdominal exam: Present: soft, normal bowel sounds. Absent: distended, tenderness, guarding, rebound, rigid Extremities exam: Present: normal inspection, full ROM, normal capillary refill. Absent: tenderness, pedal edema, joint swelling, calf tenderness Back exam: Present: normal inspection Neurological exam: Present: alert, oriented X3, CN II-XII intact Psychiatric exam: Present: normal affect, normal mood Skin exam: Present: warm, dry, intact, normal color. Absent: rash Results CBC & Chem 7: 12/17/23 21:08 12/18/23 03:40 Labs: Abnormal Lab Results - Last 24 Hours (Table) 12/17/23 12/17/23 12/17/23 Range/Units 21:08 21:08 21:08 RBC 3.48 L (3.80-5.40) m/uL Hgb 10.3 L (11.4-16.0) gm/dL Hct 33.1 L (34.0-46.0) % RDW 17.3 H (11.5-15.5) % Plt Count 94 L (150-450) k/uL Lymphocytes # 0.7 L (1.0-4.8) k/uL APTT 32.7 H (22.0-30.0) sec Potassium 5.7 H (3.5-5.1) mmol/L Chloride 113 H (98-107) mmol/L BUN 37 H (7-17) mg/dL Est GFR (CKD-EPI) (>=60) BUN/Creatinine Ratio (12.00-20.00) Ratio Plasma Lactic Acid Shailesh (0.7-2.0) mmol/L Alkaline Phosphatase 154 H (38-126) U/L Urine Appearance (Clear) Urine Blood (Negative) Urine Nitrite (Negative) Ur Leukocyte Esterase (Negative) Urine RBC (0-5) /hpf Urine WBC (0-5) /hpf Urine Bacteria (None) /hpf Urine Mucus (None) /hpf 12/18/23 12/18/23 12/18/23 Range/Units 01:00 03:40 03:40 RBC (3.80-5.40) m/uL Hgb (11.4-16.0) gm/dL Hct (34.0-46.0) % RDW (11.5-15.5) % Plt Count (150-450) k/uL Lymphocytes # (1.0-4.8) k/uL APTT (22.0-30.0) sec Potassium (3.5-5.1) mmol/L Chloride 112 H (98-107) mmol/L BUN 34.0 H (7-17) mg/dL Est GFR (CKD-EPI) 57 L (>=60) BUN/Creatinine Ratio 34.00 H (12.00-20.00) Ratio Plasma Lactic Acid Shailesh 0.5 L (0.7-2.0) mmol/L Alkaline Phosphatase (38-126) U/L Urine Appearance Cloudy H (Clear) Urine Blood Moderate H (Negative) Urine Nitrite Positive H (Negative) Ur Leukocyte Esterase Large H (Negative) Urine RBC 8 H (0-5) /hpf Urine WBC 31 H (0-5) /hpf Urine Bacteria Many H (None) /hpf Urine Mucus Rare H (None) /hpf Thrombosis Risk Factor Assmnt - Choose All That Apply Any of the Below Risk Factors Present?: Yes Each Factor Represents 1 point: Swollen legs (current) Each Risk Factor Represents 3 Points: Age 75 years or older Other congenital or acquired thrombophilia - If yes, enter type in comment: No Thrombosis Risk Factor Assessment Total Risk Factor Score: 4 Thrombosis Risk Factor Assessment Level: Moderate Risk Assessment and Plan Assessment: 1. Acute UTI --UA is positive for bacteria, WBCs, nitrates and leukocyte esterase -- Patient has been placed on IV Rocephin 2 g IV daily -Urine and blood cultures are obtained; further recommendations once culture results are available 2. Acute renal injury; likely prerenal acidemia related to poor oral intake -- Will continue with IV fluid hydration with normal saline at a rate of 75 cc an hour, monitor strict ERICKSON's, daily weights, renal function electrolytes, avoid nephrotoxins and hypotension 3. Weakness/inability to ambulate; likely related to above; continue treatment plan as indicated above -Consult PT/OT 4. Paroxysmal atrial fibrillation; rate controlled on metoprolol 25 mg daily along with Eliquis 5 mg twice daily 5. Bilateral lower extremity chronic venous stasis ulcers 6. Hyperlipidemia; Lipitor 40 mg daily DVT prophylaxis; SCDs/Eliquis Status; full code
[2023-12-18] MEDS: prednisoLONE ACETATE 1% OPHTH DROPS 5 ML BTL RIGHT EYE SCH (14:31)
[2023-12-18] MEDS: FLUOROMETHOLONE 0.1% OPHTH DROPS 5 ML BTL LEFT EYE SCH (20:33)
[2023-12-18] MEDS: DORZOLAMIDE-TIMOLOL 2.23%/0.68 10ML BTL LEFT EYE SCH (20:33)
[2023-12-18] MEDS: BRIMONIDINE TARTRATE 0.2% DROPS 5 ML BTL RIGHT EYE SCH (20:33)
[2023-12-18] MEDS: LATANOPROST 0.005% OPHTH DROPS 2.5 ML BTL LEFT EYE SCH (20:33)
[2023-12-19] MEDS: PANTOPRAZOLE 40 MG TABLET PO SCH (05:53)
[2023-12-19 07:52] LABS: Anisocytosis Slight; Basophils % (A) 0 %; Eosinophils % (A) 0 %; HCT 31.1 % (34.0-46.0); HGB 9.5 gm/dL (11.4-16.0); Hypochromasia Moderate; Lymphocytes # (A) 1.2 k/uL (1.0-4.8); Lymphocytes % (A) 9 %; MCH 29.4 pg (25.0-35.0); MCHC 30.5 g/dL (31.0-37.0); MCV 96.5 fL (80.0-100.0); Macrocytosis Slight; Monocytes # (A) 0.4 k/uL (0-1.0); Monocytes % (A) 3 %; Neutrophils # (A) 11.2 k/uL (1.3-7.7); Neutrophils % (A) 86 %; RBC 3.22 m/uL (3.80-5.40); RDW 17.4 % (11.5-15.5)
[2023-12-19 08:04] LABS: African American GFR (CKD) 51 (>60 ml/min/1.73 sqM); Anion Gap 8 mmol/L; Blood Urea Nitrogen 30 mg/dL (7-17); Carbon Dioxide 17 mmol/L (22-30); Chloride 118 mmol/L (98-107); Glucose 55 mg/dL (74-99); Non-African American GFR(CKD) 44 (>60 ml/min/1.73 sqM); Potassium 5.5 mmol/L (3.5-5.1); Sodium 143 mmol/L (137-145)
[2023-12-19 08:10] LABS: Platelet Count 81 k/uL (150-450)
[2023-12-19] MEDS: ATORVASTATIN 40 MG TAB PO SCH (09:26)
--- NOTE | 2023-12-19 16:01 | P.PN ---
Subjective Progress Note Date: 12/19/23 78-year-old female with past medical history of chronic lymphedema, A-fib on Eliquis who presents to the emergency department with increased weakness for the past day. According to the daughter the patient was ambulatory yesterday. Today the patient has been unable to get out of bed. He has not been eating or drinking. Patient reports that she has weakness all over. She denies any lateralizing symptoms. Daughter feels as if she has some slurred speech. Patient remains alert and oriented x 4. She denies any headaches. No nausea or vomiting. Denies any weakness in her upper extremities. Localizes the weakness to her lower extremities. Denies any fevers. Of note the patient had glaucoma surgery [address] Mahdi Singh. He had a follow-up appointment on Thursday. Reports that she had poor vision out of her right eye however at this point it feels worse. She is on ofloxacin drops. She denies any eye pain. No headaches. No facial droop. No other alleviating, precipitating modifying factors Blood work completed in ED reveals a WBC of 3.8, hemoglobin of 10.3 and platelet count of 33.1, sodium 141, potassium 5.7, BUNs/creatinine of 37/zero 1.02 and blood glucose of 81, alkaline phosphatase of 154, troponin less than 0.012 UA is positive for blood, nitrites, leukocyte esterase, WBCs and bacteria Brain CT is negative for any acute intracranial abnormality, atrophy and chronic microvascular ischemic white matter changes Chest x-ray reveals cardiomegaly with mild congestive changes. Correlate for mild CHF EKG reveals sinus bradycardia with first-degree AV block --Patient had glaucoma surgery done about 2 weeks ago, daughter requesting ophthalmology follow-up while inpatient Objective - Vital Signs Vital signs: Vital Signs Temp 97.4 F L 12/19/23 08:00 Pulse 78 12/19/23 08:00 Resp 17 12/19/23 08:00 BP 131/74 12/19/23 08:00 Pulse Ox 97 12/19/23 08:00 FiO2 Intake & Output 12/18/23 12/19/23 12/19/23 18:59 06:59 18:59 Output Total 100 600 Balance -100 -600 Output: Urine 100 600 Other: Voiding Method External Catheter External Catheter External Catheter # Voids 3 - Exam General appearance: alert, in no apparent distress Head exam: Present: atraumatic, normocephalic, normal inspection Eye exam: Present: conjunctival injection, other (Chemosis. Hypopyon present in the right eye. Patient can only visualize light. She remains with her eye closed). Absent: periorbital swelling ENT exam: Present: normal exam, mucous membranes moist Neck exam: Present: normal inspection. Absent: tenderness, meningismus, lymphadenopathy Respiratory exam: Present: normal lung sounds bilaterally. Absent: respiratory distress, wheezes, rales, rhonchi, stridor Cardiovascular Exam: Present: regular rate, normal rhythm, normal heart sounds. Absent: systolic murmur, diastolic murmur, rubs, gallop, clicks GI/Abdominal exam: Present: soft, normal bowel sounds. Absent: distended, tenderness, guarding, rebound, rigid Extremities exam: Present: normal inspection, full ROM, normal capillary refill. Absent: tenderness, pedal edema, joint swelling, calf tenderness Back exam: Present: normal inspection Neurological exam: Present: alert, oriented X3, CN II-XII intact Psychiatric exam: Present: normal affect, normal mood Skin exam: Present: warm, dry, intact, normal color. Absent: rash - Labs CBC & Chem 7: 12/19/23 07:16 12/19/23 07:16 Labs: Abnormal Lab Results - Last 24 Hours (Table) 12/19/23 12/19/23 Range/Units 07:16 07:16 WBC 13.0 H (3.8-10.6) k/uL RBC 3.22 L (3.80-5.40) m/uL Hgb 9.5 L (11.4-16.0) gm/dL Hct 31.1 L (34.0-46.0) % MCHC 30.5 L (31.0-37.0) g/dL RDW 17.4 H (11.5-15.5) % Plt Count 81 L (150-450) k/uL Neutrophils # 11.2 H (1.3-7.7) k/uL Potassium 5.5 H (3.5-5.1) mmol/L Chloride 118 H (98-107) mmol/L Carbon Dioxide 17 L (22-30) mmol/L BUN 30 H (7-17) mg/dL Creatinine 1.18 H (0.52-1.04) mg/dL Glucose 55 L (74-99) mg/dL Assessment and Plan Assessment: 1. Acute UTI --UA is positive for bacteria, WBCs, nitrates and leukocyte esterase -- Patient has been placed on IV Rocephin 2 g IV daily -Urine and blood cultures are obtained; further recommendations once culture res ults are available 2. Acute renal injury; likely prerenal acidemia related to poor oral intake -- Will continue with IV fluid hydration with normal saline at a rate of 75 cc an hour, monitor strict ERICKSON's, daily weights, renal function electrolytes, avoid nephrotoxins and hypotension 3. Weakness/inability to ambulate; likely related to above; continue treatment plan as indicated above -Consult PT/OT 4. Paroxysmal atrial fibrillation; rate controlled on metoprolol 25 mg daily along with Eliquis 5 mg twice daily 5. Bilateral lower extremity chronic venous stasis ulcers 6. Hyperlipidemia; Lipitor 40 mg daily DVT prophylaxis; SCDs/Eliquis Status; full code
[2023-12-20] MEDS: hydrALAZINE HCL 20 MG/ML 1 ML VIAL IVP PRN (05:36)
[2023-12-20 10:43] LABS: African American GFR (CKD) 51 (>60 ml/min/1.73 sqM); Anion Gap 6 mmol/L; Blood Urea Nitrogen 31 mg/dL (7-17); Calcium 9.5 mg/dL (8.4-10.2); Carbon Dioxide 19 mmol/L (22-30); Chloride 117 mmol/L (98-107); Glucose 78 mg/dL (74-99); Non-African American GFR(CKD) 44 (>60 ml/min/1.73 sqM); Potassium 5.6 mmol/L (3.5-5.1); Sodium 142 mmol/L (137-145)
[2023-12-20 11:51] LABS: Glucose,Whole Blood 80 mg/dL (70-110)
--- NOTE | 2023-12-20 12:35 | CT ---
EXAMINATION TYPE: CODE STROKE: CT brain wo contr CT DLP: 1091.8 mGycm, Automated exposure control for dose reduction was used. DATE OF EXAM: 12/20/2023 12:14 PM COMPARISON: 12/17/2023 CT and before. CLINICAL INDICATION:Female, 78 years old with history of Neuro deficit, acute, stroke suspected, STRO KE TECHNIQUE: Brain: Axial CT images of the brain were obtained with coronal and sagittal reformats created and rev iewed. Contrast used: None. Oral contrast used: None. FINDINGS: Extra-axial spaces: No abnormal extra-axial fluid collections. Basilar cisterns are patent. Ventricular system: Ventricles appear dilated in proportion to the degree of cerebral atrophy. Cerebral parenchyma: No increased attenuation to suggest acute intraparenchymal hemorrhage. The gra y-white matter interface appears maintained. Mild/moderate generalized brain atrophy. Scattered hyp oattenuating areas are seen within the cerebral white matter, nonspecific but most often seen with ch ronic microvascular ischemic changes; these areas appear generally concordant with the prior MRI T2 F LAIR signal hyperintensities, and unchanged from the recent CT. This includes a patch of hypoattenuat ion in the white matter superolateral to the left lateral ventricle. Cerebellum: No acute abnormality. Mass effect: No evidence of mass effect or midline shift. Intracranial vasculature: Atherosclerotic calcifications of the larger arteries near the skull base. Soft tissues: No acute or concerning abnormality. Visualized orbits: There are curved radiodensities along the lateral margins of the globes consisten t with prior ophthalmologic surgery. There may have been lens replacements. There is abnormal density seen within the vitreous chamber of the right globe not evident on the prior MRI which could represe nt vitreous hemorrhage, retinal detachment, or other abnormality; correlate with ophthalmologic histo ry and exam. No acute intraorbital abnormality is otherwise identified. Calvarium/osseous structures: No evidence of calvarial fracture. Nasal septal deviation towards the l eft. Paranasal sinuses and mastoid air cells: Remain clear. MRI is more sensitive for detecting acute processes such as infarct, and may be considered if clinica lly warranted. IMPRESSION: 1. Overall stable intracranial findings seen. 2. No acute intracranial hemorrhage or other acute abnormality.
[2023-12-20 12:40] LABS: Glucose,Whole Blood 81 mg/dL (70-110)
[2023-12-20 12:56] LABS: INR 1.1 (<1.2); Partial Thromboplastin Time 29.9 sec (22.0-30.0); Prothrombin Time 11.8 sec (10.0-12.5)
--- NOTE | 2023-12-20 13:30 | CT ---
EXAMINATION TYPE: CODE STROKE: CTA head neck DATE OF EXAM: 12/20/2023 12:37 PM COMPARISON: Same day CT head CLINICAL INDICATION:Female, 78 years old with history of Neuro deficit, acute, stroke suspected; PHH, STROKE TECHNIQUE: Axially acquired helical CT angiogram of the head and neck was obtained with contrast. Axi al images are supplemented with 3D reconstructions [facility] NASCET criteria used. Contrast used: 65 mL of Isovue 370 with IV Contrast, Oral contrast used: None. CT DLP: 607.4 mGycm, Automated exposure control for dose reduction was used. FINDINGS: CTA Neck: The ascending aorta is 3 cm, descending 2.3 cm. There is mild atherosclerotic calcification along the arch. There is a conventional 3 vessel branch pattern without significant stenosis in branch vessel origins. No dissection. On the right, there is a patent common carotid. Mild mostly calcified plaque at the carotid bifurcati on and proximal ICA without significant stenosis. ICA is then patent into the skull base. On the left, common carotid is patent. Mild to moderate mostly calcified plaque at the bifurcation an d proximal ICA without significant stenosis seen. Vertebral arteries: There is no significant atherosclerotic plaque at the origins of the vertebral ar teries. The vertebrals are then otherwise patent to the skull base. The vertebral arteries are codominant. Other: Visualized neck soft tissues show no concerning abnormality. There are a few tiny hypodense th yroid nodules and scattered coarse calcification. Cervical spine shows mild/moderate degenerative irish nges with mild reversal of the normal lordosis. Disc marginal osteophytes cause moderate left neural foraminal stenosis at C3-C4 and C4-C5. Imaged portions of the lung apices show mild scarring without acute infiltrate or pneumothorax. CTA Head: There are some calcifications of the cavernous portions of the ICAs without significant stenosis. Supraclinoid ICAs, bifurcations, ACAs, MCAs appear normally patent. Anterior communicating artery is not definitely seen. The intracranial vertebral arteries enhance normally. Basilar artery is patent and unremarkable. Norm al basilar bifurcation without evidence of aneurysm. Visualized proximal lapping machine set up operator are patent. A patent right posterior communicating artery is seen, a left is not. No intracranial large vessel oc clusion, hemodynamically significant stenosis, aneurysm, dissection, or arteriovenous malformation is shown. The dural venous sinuses appear grossly patent without evidence of thrombosis. Other: Please refer to same-day CT head report for further description of further additional finding s. IMPRESSION: CTA neck: Patent CTA Neck. Mild atherosclerotic disease, without evidence of hemodynamically significant stenos is or dissection. CTA head: Patent CTA head. No intracranial large vessel occlusion, significant stenosis, or sizable aneurysm de tected in the limits of CTA.
--- NOTE | 2023-12-20 13:46 | P.CNPUL ---
History of Present Illness Consult date: 12/20/23 Chief complaint: Acute mental status change History of present illness: On 12/20/2023, the patient got transferred to the intensive care unit. The patient became acutely unresponsive. She did have a left facial droop and she was nonverbal, barely responsive to any painful stimulation. Respiratory rate was also low and the patient was having shallow low rate respiration. Suspect an acute stroke. A code stroke was called and the patient underwent a CAT scan of the head that showed no acute abnormalities. No evidence of any bleed or stroke identified. Also, his CTA of the brain was also done that showed patent intracranial arteries. Patient was already on anticoagulation with Eliquis. Neuro interventional specialist was contacted and the patient was not found to be candidate for thrombolytics. Based on that, the patient got transferred to the intensive care unit. Currently she is on a BiPAP ST mode at a pressure of 12/5 with a backup rate of 12. FiO2 is being adjusted to maintain saturation above 90%. Blood gases are to follow. The patient is not responsive to any deep painful stimulation at this point and she is unresponsive. No seizure activity has been noted. Cardiac rhythm is sinus and the patient has history of paroxysmal atrial fibrillation maintained on anticoagulation. The patient was hospitalized earlier because of generalized weakness and inability to eat or drink. She was having generalized weakness. Suspected to have underlying urine tract infection. The patient is known to have previous episodes of UTI. UA was abnormal consistent with infection. Nevertheless, urine cultures have been neg ative. Since admission, the patient was treated with IV Rocephin. She was also receiving IV fluids normal saline at rate of 75 cc an hour. She was awake and responsive up to this morning. Blood work from today showed a sodium level of 142, potassium level of 5.6, bicarb is 19 with a BUN of 31 with a creatinine of 1.1. CBC is still pending from today. Most recent CBC showed a WBC count of 13 with a hemoglobin 9.5. She is on no pressors for now. She is afebrile. The viral screen has been negative. Neurology has been consulted. On a separate note, the patient has undergone a recent right eye surgery for glaucoma. Review of Systems ROS unobtainable: due to mental status Past Medical History Past Medical History: Atrial Fibrillation, Eye Disorder, Osteoarthritis (OA), Vascular Disorder Additional Past Medical History / Comment(s): lower leg edema History of Any Multi-Drug Resistant Organisms: None Reported Past Surgical History: Appendectomy, Joint Replacement, Tubal Ligation Additional Past Surgical History / Comment(s): madeline hip and knees total replacement; cat sx with lens implants both eyes, surgery for glaucoma Past Anesthesia/Blood Transfusion Reactions: No Reported Reaction Past Psychological History: No Psychological Hx Reported Smoking Status: Never smoker Past Alcohol Use History: None Reported Past Drug Use History: None Reported - Past Family History Father Additional Family Medical History / Comment(s): PASSED OF OLD AGE per patient Mother Additional Family Medical History / Comment(s): PASSED OF OLD AGE per patient Medications and Allergies Home Medications Medication Instructions Recorded Confirmed Type Brimonidine Tartrate [Alphagan P 1 drop RIGHT EYE BID 01/27/23 12/18/23 History 0.2% Ophth Soln] Fluorometholone 0.1% Ophth Megan 1 drop LEFT EYE BID 01/27/23 12/18/23 History [Fml] Furosemide [Lasix] 40 mg PO DAILY 07/08/23 12/18/23 History Apixaban [Eliquis] 5 mg PO BID tab 07/15/23 12/18/23 Rx Atorvastatin [Lipitor] 40 mg PO DAILY tab 07/15/23 12/18/23 Rx Metoprolol Succinate (ER) [Toprol 25 mg PO DAILY tab 07/15/23 12/18/23 Rx XL] Albuterol Inhaler [Ventolin Hfa 1 - 2 puff INHALATION RT-TID PRN 08/30/23 12/18/23 History Inhaler] Losartan [Cozaar] 25 mg PO DAILY 08/30/23 12/18/23 History Omeprazole 20 mg PO AC-BRKFST 08/30/23 12/18/23 History Dorzolamide-Timol 2.23%/0.68% 1 drop LEFT EYE BID 12/18/23 12/18/23 History [Cosopt] Latanoprost Ophth [Xalatan 0.005%] 1 drop LEFT EYE BID 12/18/23 12/18/23 History prednisoLONE ACETATE 1% OPHTH 1 drop RIGHT EYE QID 12/18/23 12/18/23 History [Pred Forte 1%] Allergies Allergy/AdvReac Type Severity Reaction Status Date / Time No Known Allergies Allergy Verified 04/12/24 06:52 Physical Exam Vitals: Vital Signs Temp Pulse Pulse Resp BP BP Pulse Ox 12/20/23 13:22 12/20/23 13:10 68 15 137/66 97 12/20/23 13:00 67 10 L 132/47 95 12/20/23 12:50 69 10 L 132/47 95 12/20/23 12:40 97.2 F L 71 10 L 154/62 95 12/20/23 11:04 98 F 60 17 132/70 94 L 12/20/23 07:45 97.7 F 74 15 155/75 93 L 12/20/23 04:00 98.2 F 80 18 173/76 95 12/19/23 23:07 98 F 84 18 150/80 95 12/19/23 20:00 97.8 F 82 18 187/92 96 12/19/23 15:35 97.2 F L 68 17 132/68 96 FiO2 12/20/23 13:22 40 12/20/23 13:10 12/20/23 13:00 12/20/23 12:50 12/20/23 12:40 12/20/23 11:04 12/20/23 07:45 12/20/23 04:00 12/19/23 23:07 12/19/23 20:00 12/19/23 15:35 Intake and Output 12/19/23 12/20/23 12/20/23 22:59 06:59 14:59 Intake Total 200 10 Output Total 1200 875 Balance 200 -1200 -865 Intake: IV 10 Invasive Line 2 10 Oral 200 Output: Urine 1200 875 Other: Voiding Method External Catheter External Catheter External Catheter # Voids 2 # Bowel Movements 1 Unresponsive to any painful stimuli currently on a BiPAP with a pressure of 12/5 Head exam was generally normal. There was no scleral icterus or corneal arcus. Mucous membranes were moist. There is facial asymmetry with some left facial droop. Mucous membranes are essentially dry. No neck stiffness. Neck was supple and without jugular venous distension, thyromegaly, or carotid bruits. Carotids were easily palpable bilaterally. There was no adenopathy. Lungs were clear to auscultation and percussion, and with normal diaphragmatic excursion. No wheezes or rales were noted. Cardiac exam revealed the PMI to be normally situated and sized. The rhythm was regular and no extrasystoles were noted during several minutes of auscultation. The first and second heart sounds were normal and physiologic splitting of the second heart sound was noted. There were no murmurs, rubs, clicks, or gallops. Abdominal exam revealed normal bowel sounds. The abdomen was soft, non-tender, and without masses, organomegaly, or appreciable enlargement of the abdominal aorta. Extremities reveal chronic lymphedema. No signs of clubbing. Examination of the skin revealed no evidence of significant rashes, suspicious appearing nevi or other concerning lesions. Neurologically, the patient is unresponsive. No neck stiffness. No seizure activity. Left facial droop. She is currently on a BiPAP. At same time, the patient has no motor function in all 4 extremities. He is not responding to the painful stimulation. No cough. There weak gag. Left pupil is round 3 mm in size and sluggish reactive to light. Positive Babinski in the left lower extremity. Reflexes are diminished in lower extremities bilaterally. No clonus. Results - Laboratory Findings CBC and BMP: 12/19/23 07:16 12/20/23 09:26 PT/INR, D-dimer PT 11.8 sec (10.0-12.5) 12/20/23 12:15 INR 1.1 (<1.2) 12/20/23 12:15 Abnormal lab findings: Abnormal Labs 12/17/23 12/17/23 12/17/23 21:08 21:08 21:08 WBC RBC 3.48 L Hgb 10.3 L Hct 33.1 L MCHC RDW 17.3 H Plt Count 94 L Neutrophils # Lymphocytes # 0.7 L APTT 32.7 H Potassium 5.7 H Chloride 113 H Carbon Dioxide BUN 37 H Creatinine Est GFR (CKD-EPI) BUN/Creatinine Ratio Glucose Plasma Lactic Acid Shailesh Alkaline Phosphatase 154 H Urine Appearance Urine Blood Urine Nitrite Ur Leukocyte Esterase Urine RBC Urine WBC Urine Bacteria Urine Mucus 12/18/23 12/18/23 12/18/23 01:00 03:40 03:40 WBC RBC Hgb Hct MCHC RDW Plt Count Neutrophils # Lymphocytes # APTT Potassium Chloride 112 H Carbon Dioxide BUN 34.0 H Creatinine Est GFR (CKD-EPI) 57 L BUN/Creatinine Ratio 34.00 H Glucose Plasma Lactic Acid Shailesh 0.5 L Alkaline Phosphatase Urine Appearance Cloudy H Urine Blood Moderate H Urine Nitrite Positive H Ur Leukocyte Esterase Large H Urine RBC 8 H Urine WBC 31 H Urine Bacteria Many H Urine Mucus Rare H 12/19/23 12/19/23 12/20/23 07:16 07:16 09:26 WBC 13.0 H RBC 3.22 L Hgb 9.5 L Hct 31.1 L MCHC 30.5 L RDW 17.4 H Plt Count 81 L Neutrophils # 11.2 H Lymphocytes # APTT Potassium 5.5 H 5.6 H Chloride 118 H 117 H Carbon Dioxide 17 L 19 L BUN 30 H 31 H Creatinine 1.18 H 1.17 H Est GFR (CKD-EPI) BUN/Creatinine Ratio Glucose 55 L Plasma Lactic Acid Shailesh Alkaline Phosphatase Urine Appearance Urine Blood Urine Nitrite Ur Leukocyte Esterase Urine RBC Urine WBC Urine Bacteria Urine Mucus - Diagnostic Findings Chest x-ray: image reviewed Assessment and Plan Plan: Acute change in mental status, highly suspicious for an acute CVA, currently unresponsive. CT scan of the brain and a CT angiogram showed no evidence of any bleed or stroke and angiogram showed no evidence of any occlusion of the major intracranial arteries. Not a candidate for thrombolytics. Currently being monitored in the intensive care unit. Neurology consulted Paroxysmal A-fib, current rhythm is sinus. The patient is maintained on anticoagulation with Eliquis on outpatient basis History of recurrent urine tract infection, recurrent UTI has been suspected during this current admission. Urine cultures are negative and the patient is currently on IV Rocephin Respiratory insufficiency probably related to acute CVA. The patient is having lower respiratory rate and episodic apneas. Patient was placed on a BiPAP ST mode at a pressure of 12/5 with a backup rate of 12. FiO2 is being adjusted. High risk for aspiration as the patient is unable to clearly protect her airway. Obesity with a BMI of 39 Hypertension Recent eye surgery for cataract involving the right eye Osteoarthritis with previous hip and knee surgery Plan Close monitoring of neurostatus Continue BiPAP ST with a backup rate of 12 per minute. Currently on a pressure of 12 over 5 cm of water. FiO2 will be titrated to maintain saturation above 90%. Obtain a blood gas Consider intubation if the patient shows no signs of any neurologic recovery. This will be needed essentially to protect airways. Neurology consultation, neurointerventional specialist has been involved. Not a candidate for thrombolytics. Rectal aspirin 300 mg daily Will need a repeat echocardiogram Keep the patient n.p.o. for now IV fluids normal citrate of 75 cc an hour Continue IV Rocephin Repeat CAT scan of the brain within next 24 hours. Obtain EEG. Family has been updated. Will continue to follow Condition is critical for now. High risk for intubation especially if neurologic status remains unchanged. Time with Patient: Greater than 30
[2023-12-20 13:56] LABS: ABG Base Excess -4.9 mmol/L; ABG HCO3 21 mmol/L (21-25); ABG PCO2 39 mmHg (35-45); ABG PH 7.33 (7.35-7.45); ABG PO2 210 mmHg (83-108); ABG TCO2 22 mmol/L (19-24); Allen Test Performed? Yes
[2023-12-20] MEDS: ASPIRIN 300 MG SUPP RECTAL SCH (14:11)
[2023-12-20 14:52] LABS: Glucose,Whole Blood 86 mg/dL (70-110)
--- NOTE | 2023-12-20 15:33 | P.CNNES ---
History of Present Illness Consult date: 12/20/23 Requesting physician: Krystin Cisneros Reason for Consult: Code stroke History of Present Illness: Patient is a 78-year-old right-handed female came to the hospital by ambulance on , 12/17/2023 at 7:39 PM for worsening lower extremity weakness and slurred speech. As per EMS flowsheet, upon arrival patient was found in the chair in the living room. Patient's daughter who called EMS on her behalf stated that her normal weakness and slurred speech has been worsening for 2 days. Patient was alert and oriented x 4 with GCS of 15 and stable vital signs aside from hypertension. [place] prehospital stroke scale was negative. Patient's daughter then reports that all findings are normal as per baseline. Patient's vitals at the scene was blood pressure 192/78, pulse rate 57 saturation 96%, respiration 18. Blood glucose 91 mg/dL. CT head revealed no acute process. Atrophy and chronic microvascular ischemic white matter changes. Orbital abnormalities. On my review, there is evidence of subacute to chronic ischemic area in the left centrum semiovale, and left basal ganglia. Possible old small area of ischemia in the left central cerebellar hemisphere. Chest x-ray revealed cardiomegaly with mild congestive changes. Correlate with mild CHF. EKG shows sinus bradycardia Patient had a stroke code activated at 11:48 AM today. Apparently at 1140 (RN) was called in to room by family asking what is going on, as patient is not responsive. LTW 1104 when vitals were done patient spoke with the nurse at that time with baseline orientation for the day has be to self and sometimes place however following commands. Code stroke called 1148. patient has slight babinski reflex to lower extremities, slight left facial droop, left eye pupil size 4 slow to react to light, unable to communicate, unable to follow commands. [facility] 31. 1200 Dr Marcano called back he will review CT/CTA. Dr Cisneros notified of 1220, agreed with neuro consult no new orders. BP 137/60 heart rate 75 O2 95% room air. Repeat CT head performed this morning at 12:35 PM revealed overall stable intracranial findings. No acute intracranial hemorrhage or other abnormality. I personally reviewed CT head, agree with the findings. No acute changes compared to the CT from 2 days ago. CTA showed no large vessel occlusion. Stroke team discussed with Dr. Marcano who recommended no tPA because of being on Eliquis, and no intervention because no large vessel occlusion. Dr. Leslie recommended to stop Eliquis for now. Patient given aspirin 300 mg rectally. I spoke to patient's nurse, who mentioned that when she arrived, about 20 minutes later, she noticed some nystagmus, that resolved in a short while. Her gaze was initially deviated to the left, but now to the right. No other seizure-like activity has been noticed. I spoke to patient's daughter in detail, who states that patient does not have any history of dementia. She lives by herself, has been using walker for last 2 years because of lymphedema and she had ulcerated, weeping wounds in August 2023, that now has resolved. In the last 2 to 3 weeks, she has somewhat slowed down. 3 days before arrival, patient was slurring, weakness more than her baseline, although she was responding normally. Patient daughter suspected a UTI, as she has been admitted last January, April and then July for UTI. Each time she gets UTI, patient started having hallucination, delusions and becomes weak. 1 day prior to arrival, on Thursday, she did take a shower. Patient did not have hallucination till she arrived to the hospital. No previous history of seizures. Patient's daughter also mentions that on , all day she was incontinent of bowels and bladder because of diarrhea. No previous history of strokes or TIA. Patient was diagnosed with new onset atrial fibrillation in August 2023. No history of diabetes. She does have hypertension. Never hist ory of tobacco use or alcohol. Patient had right eye glaucoma surgery on 12/07/2023, after which her right eye has been more hazy, decreased vision. Patient has been seen by Dr. Shields previously in consultation on 07/12/2023 for difficulty naming objects, with visual and auditory hallucinations, which was felt to be related to delirium from UTI/acute hospital psychosis versus delirium in the setting of underlying dementia. MRI of the brain with and without contrast revealed degenerative and nonspecific white matter changes most typical of remote white matter ischemia. There was no acute ischemic process. EEG was abnormal with moderate encephalopathy. Ammonia level was 11. Patient takes Lasix, Eliquis 5 mg twice daily, Lipitor 40 mg metoprolol, albuterol, omeprazole, losartan. Review of Systems ROS unobtainable: due to endotracheal tube, due to mental status Constitutional: Denies chills, Denies fever Eyes: right blurred vision (Glaucoma surgery [address] Akhtar ), right decreased vision, right loss of vision (above) Ears: deny: decreased hearing, tinnitus Ears, nose, mouth and throat: Denies headache, Denies sore throat, Denies v ertigo Cardiovascular: Denies chest pain, Denies lightheadedness, Denies shortness of breath Respiratory: Denies cough, Denies excessive sputum Gastrointestinal: Reports diarrhea, Denies abdominal pain, Denies nausea, Denies vomiting Genitourinary: Reports urge incontinence, Denies dysuria Integumentary: Reports color changes, Reports darkening of skin (legs), Reports rash, Denies pruritus Neurological: Reports as per HPI Psychiatric: Denies anxiety, Denies depression, Denies memory loss Endocrine: Reports fatigue, Denies weight change Hematologic/Lymphatic: Reports easy bleeding, Reports easy bruising Past Medical History Past Medical History: Atrial Fibrillation, Eye Disorder, Osteoarthritis (OA), Vascular Disorder Additional Past Medical History / Comment(s): lower leg edema History of Any Multi-Drug Resistant Organisms: None Reported Past Surgical History: Appendectomy, Joint Replacement, Tubal Ligation Additional Past Surgical History / Comment(s): madeline hip and knees total replacement; cat sx with lens implants both eyes, surgery for glaucoma Past Anesthesia/Blood Transfusion Reactions: No Reported Reaction Past Psychological History: No Psychological Hx Reported Smoking Status: Never smoker Past Alcohol Use History: None Reported Past Drug Use History: None Reported - Past Family History Father Additional Family Medical History / Comment(s): PASSED OF OLD AGE per patient Mother Additional Family Medical History / Comment(s): PASSED OF OLD AGE per patient Medications and Allergies Home Medications Medication Instructions Recorded Confirmed Type Brimonidine Tartrate [Alphagan P 1 drop RIGHT EYE BID 01/27/23 12/18/23 History 0.2% Ophth Soln] Fluorometholone 0.1% Ophth Megan 1 drop LEFT EYE BID 01/27/23 12/18/23 History [Fml] Furosemide [Lasix] 40 mg PO DAILY 07/08/23 12/18/23 History Apixaban [Eliquis] 5 mg PO BID tab 07/15/23 12/18/23 Rx Atorvastatin [Lipitor] 40 mg PO DAILY tab 07/15/23 12/18/23 Rx Metoprolol Succinate (ER) [Toprol 25 mg PO DAILY tab 07/15/23 12/18/23 Rx XL] Albuterol Inhaler [Ventolin Hfa 1 - 2 puff INHALATION RT-TID PRN 08/30/23 12/18/23 History Inhaler] Losartan [Cozaar] 25 mg PO DAILY 08/30/23 12/18/23 History Omeprazole 20 mg PO AC-BRKFST 08/30/23 12/18/23 History Dorzolamide-Timol 2.23%/0.68% 1 drop LEFT EYE BID 12/18/23 12/18/23 History [Cosopt] Latanoprost Ophth [Xalatan 0.005%] 1 drop LEFT EYE BID 12/18/23 12/18/23 History prednisoLONE ACETATE 1% OPHTH 1 drop RIGHT EYE QID 12/18/23 12/18/23 History [Pred Forte 1%] Allergies Allergy/AdvReac Type Severity Reaction Status Date / Time No Known Allergies Allergy Verified 12/18/23 06:52 Physical Examination - Vital Signs Vital Signs: Vital Signs Temp Pulse Pulse Resp BP BP Pulse Ox 12/20/23 13:45 58 L 16 140/72 98 12/20/23 13:30 65 16 140/60 97 12/20/23 13:22 12/20/23 13:10 68 15 137/66 97 12/20/23 13:00 67 10 L 132/47 95 12/20/23 12:50 69 10 L 132/47 95 12/20/23 12:40 97.2 F L 71 10 L 154/62 95 12/20/23 11:04 98 F 60 17 132/70 94 L 12/20/23 07:45 97.7 F 74 15 155/75 93 L 12/20/23 04:00 98.2 F 80 18 173/76 95 12/19/23 23:07 98 F 84 18 150/80 95 12/19/23 20:00 97.8 F 82 18 187/92 96 12/19/23 15:35 97.2 F L 68 17 132/68 96 FiO2 12/20/23 13:45 12/20/23 13:30 40 12/20/23 13:22 40 12/20/23 13:10 12/20/23 13:00 12/20/23 12:50 12/20/23 12:40 12/20/23 11:04 12/20/23 07:45 12/20/23 04:00 12/19/23 23:07 12/19/23 20:00 12/19/23 15:35 Intake and Output 12/19/23 12/20/23 12/20/23 22:59 06:59 14:59 Intake Total 200 10 Output Total 1200 875 Balance 200 -1200 -865 Intake: IV 10 Invasive Line 2 10 Oral 200 Output: Urine 1200 875 Other: Voiding Method External Catheter External Catheter External Catheter # Voids 2 # Bowel Movements 1 Patient is an elderly female, who is severely encephalopathic, obtunded, unresponsive. Patient has BiPAP on. Patient's eyes are open, gaze deviated to the right side. Patient had recent eye surgery on the right, therefore has hazy cornea and pupils. The left pupil is about 4 mm, minimally reacting. The gaze is to the right side. However shortly after I noticed, the gaze was again in the midline, with some jerking [id number] noticed. She is now looking upwards. Patient has no gag or cough reflex noticed by the nurse. Speech and language functions cannot be assessed because of the level of consciousness. On cranial nerve examination, as mentioned above. Other cranial nerves cannot be assessed. On muscle strength testing, tone is equal bilaterally. No obvious seizure-like activity noticed. Patient does not respond or moves extremities to noxious stimuli on either side. She does slightly withdraw her feet, while checking for the knee reflex. Deep tendon reflexes are symmetric very hypoactive and plantars are upgoing bilaterally. Sensory to touch patient does respond in the upper extremities. However in the lower extremities patient does flexes her foot bilaterally to painful stimuli. Cerebellar function cannot be assessed. Tone and bulk of muscles normal. Gait deferred.. On general examination, there is no carotid bruit or murmur, S1-S2 audible. Chest is clear on consultation. Abdomen is soft nontender. No organomegaly, bowel sounds present. Patient has dry skin, some mild peripheral edema. Results - Laboratory Findings CBC and BMP: 12/19/23 07:16 12/20/23 09:26 Abnormal Lab Findings: Abnormal Labs 12/17/23 12/17/23 12/17/23 21:08 21:08 21:08 WBC RBC 3.48 L Hgb 10.3 L Hct 33.1 L MCHC RDW 17.3 H Plt Count 94 L Neutrophils # Lymphocytes # 0.7 L APTT 32.7 H ABG pH ABG pO2 ABG O2 Saturation Potassium 5.7 H Chloride 113 H Carbon Dioxide BUN 37 H Creatinine Est GFR (CKD-EPI) BUN/Creatinine Ratio Glucose Plasma Lactic Acid Shailesh Alkaline Phosphatase 154 H Urine Appearance Urine Blood Urine Nitrite Ur Leukocyte Esterase Urine RBC Urine WBC Urine Bacteria Urine Mucus 12/18/23 12/18/23 12/18/23 01:00 03:40 03:40 WBC RBC Hgb Hct MCHC RDW Plt Count Neutrophils # Lymphocytes # APTT ABG pH ABG pO2 ABG O2 Saturation Potassium Chloride 112 H Carbon Dioxide BUN 34.0 H Creatinine Est GFR (CKD-EPI) 57 L BUN/Creatinine Ratio 34.00 H Glucose Plasma Lactic Acid Shailesh 0.5 L Alkaline Phosphatase Urine Appearance Cloudy H Urine Blood Moderate H Urine Nitrite Positive H Ur Leukocyte Esterase Large H Urine RBC 8 H Urine WBC 31 H Urine Bacteria Many H Urine Mucus Rare H 12/19/23 12/19/23 12/20/23 07:16 07:16 09:26 WBC 13.0 H RBC 3.22 L Hgb 9.5 L Hct 31.1 L MCHC 30.5 L RDW 17.4 H Plt Count 81 L Neutrophils # 11.2 H Lymphocytes # APTT ABG pH ABG pO2 ABG O2 Saturation Potassium 5.5 H 5.6 H Chloride 118 H 117 H Carbon Dioxide 17 L 19 L BUN 30 H 31 H Creatinine 1.18 H 1.17 H Est GFR (CKD-EPI) BUN/Creatinine Ratio Glucose 55 L Plasma Lactic Acid Shailesh Alkaline Phosphatase Urine Appearance Urine Blood Urine Nitrite Ur Leukocyte Esterase Urine RBC Urine WBC Urine Bacteria Urine Mucus 12/20/23 13:50 WBC RBC Hgb Hct MCHC RDW Plt Count Neutrophils # Lymphocytes # APTT ABG pH 7.33 L ABG pO2 210 H ABG O2 Saturation 99.0 H Potassium Chloride Carbon Dioxide BUN Creatinine Est GFR (CKD-EPI) BUN/Creatinine Ratio Glucose Plasma Lactic Acid Shailesh Alkaline Phosphatase Urine Appearance Urine Blood Urine Nitrite Ur Leukocyte Esterase Urine RBC Urine WBC Urine Bacteria Urine Mucus Assessment and Plan Assessment: * Acute episode of altered mental status with unresponsiveness, unclear cause. Rule out acute CVA. No large vessel occlusion noted on the CTA. CT head showed no acute process. * Acute encephalopathy, unclear cause * Rule out subclinical seizure. Patient did have transient nystagmus, and gaze deviation at times to the right, and sometimes to the left. * Atrial fibrillation, on Eliquis * Osteoarthritis * History of lymphedema Plan: Patient had acute onset of unresponsiveness, with encephalopathy. Rule out CVA. Hold Eliquis, as per recommendation from Dr. Marcano, and patient started on aspirin 300 mg rectally. 2-D echo with bubble study to rule out PFO CTA neck showed: Mild atherosclerotic disease without evidence of hemodynamically significant stenosis or dissection. Patent CTA head. No intracranial large vessel occlusion, significant stenosis or aneurysm. Fasting a.m. lipid panel Hemoglobin A1c Patient is having intermittent nystagmus, and gaze deviation to the right or left. Check stat EEG. Empirically start Keppra 1000 mg IV push x 1 dose, followed by Keppra 750 mg twice daily. Patient may need lumbar puncture, but cannot have it for 48 hours because of receiving Eliquis this morning. Permissive hypertension for next 24-48 hours Patient apparently is not able to protect her airways, therefore probably will be intubated. Neuro checks every 1 hour. Telemetry monitoring rule out any arrhythmia PT, OT, speech therapy, when patient able to cooperate DVT prophylaxis: Patient was on Eliquis. Patient did receive Eliquis in the hospital and the last dose was about 8:30 AM this morning. Heparin 5000 units subcu every 8 hours Neurology will continue to follow. Thank you for the consult. Time with Patient: Greater than 30
--- NOTE | 2023-12-20 15:38 | P.PN ---
Subjective Progress Note Date: 12/20/23 78-year-old female with past medical history of chronic lymphedema, A-fib on Eliquis who presents to the emergency department with increased weakness for the past day. According to the daughter the patient was ambulatory yesterday. Today the patient has been unable to get out of bed. He has not been eating or drinking. Patient reports that she has weakness all over. She denies any lateralizing symptoms. Daughter feels as if she has some slurred speech. Patient remains alert and oriented x 4. She denies any headaches. No nausea or vomiting. Denies any weakness in her upper extremities. Localizes the weakness to her lower extremities. Denies any fevers. Of note the patient had glaucoma surgery [address] Mahdi Singh. He had a follow-up appointment on Thursday. Reports that she had poor vision out of her right eye however at this point it feels worse. She is on ofloxacin drops. She denies any eye pain. No headaches. No facial droop. No other alleviating, precipitating modifying factors Blood work completed in ED reveals a WBC of 3.8, hemoglobin of 10.3 and platelet count of 33.1, sodium 141, potassium 5.7, BUNs/creatinine of 37/zero 1.02 and blood glucose of 81, alkaline phosphatase of 154, troponin less than 0.012 UA is positive for blood, nitrites, leukocyte esterase, WBCs and bacteria Brain CT is negative for any acute intracranial abnormality, atrophy and chronic microvascular ischemic white matter changes Chest x-ray reveals cardiomegaly with mild congestive changes. Correlate for mild CHF EKG reveals sinus bradycardia with first-degree AV block --Patient had glaucoma surgery done about 2 weeks ago, daughter requesting ophthalmology follow-up while inpatient 12/20/2023 the patient was found to be unresponsive with left facial droop and code stroke was called; patient underwent a CAT scan of the head that showed no acute abnormalities. No evidence of any bleed or stroke identified. CTA of the brain was also done that showed patent intracranial arteries. Patient is already on anticoagulation with Eliquis. Neuro interventionalists was contacted and the patient was not found to be candidate for thrombolytics; patient was transferred to the intensive care unit. -- Currently she is on a BiPAP ST mode at a pressure of 12/5 with a backup rate of 12. The patient is not responsive to any deep painful stimulation at this point and she is unresponsive. -- patient remains on IV Rocephin. She was also receiving IV fluids normal saline at rate of 75 cc an hour. She was awake and responsive up to this morning. Blood work revealed sodium level of 142, potassium level of 5.6, bicarb is 19 with a BUN of 31 with a creatinine of 1.1. CBC is still pending from today. Most recent CBC showed a WBC count of 13 with a hemoglobin 9.5. She is on no pressors for now. She is afebrile. The viral screen has been negative. Neurology has been consulted. Objective - Vital Signs Vital signs: Vital Signs Temp 97.7 F 12/20/23 07:45 Pulse 74 12/20/23 07:45 Resp 15 12/20/23 07:45 BP 155/75 12/20/23 07:45 Pulse Ox 93 L 12/20/23 07:45 FiO2 Intake & Output 12/19/23 12/20/23 12/20/23 18:59 06:59 18:59 Intake Total 680 Output Total 1200 600 Balance 680 -1200 -600 Weight 99.79 kg Intake: Oral 680 Output: Urine 1200 600 Other: Voiding Method External Catheter External Catheter External Catheter # Voids 2 # Bowel Movements 1 - Exam General appearance: Patient does not respond to any verbal or painful stimuli Head exam: Present: atraumatic, normocephalic, normal inspection Eye exam: Present: conjunctival injection, other (Chemosis. Hypopyon present in the right eye. Patient can only visualize light. She remains with her eye closed). Absent: periorbital swelling ENT exam: Present: normal exam, mucous membranes moist Neck exam: Present: normal inspection. Absent: tenderness, meningismus, lymphadenopathy Respiratory exam: Present: normal lung sounds bilaterally. Absent: respiratory distress, wheezes, rales, rhonchi, stridor Cardiovascular Exam: Present: regular rate, normal rhythm, normal heart sounds. Absent: systolic murmur, diastolic murmur, rubs, gallop, clicks GI/Abdominal exam: Present: soft, normal bowel sounds. Absent: distended, tenderness, guarding, rebound, rigid Extremities exam: Present: normal inspection, full ROM, normal capillary refill. Absent: tenderness, pedal edema, joint swelling, calf tenderness Neurological exam: Patient not responding to any verbal or painful stimuli Psychiatric exam: Present: normal affect, normal mood Skin exam: Present: warm, dry, intact, normal color. Absent: rash - Labs CBC & Chem 7: 12/19/23 07:16 12/20/23 09:26 Labs: Microbiology - Last 24 Hours (Table) 12/18/23 03:40 Blood Culture - Preliminary Blood 12/18/23 03:25 Blood Culture - Preliminary Blood Assessment and Plan Assessment: 1. Acute UTI --UA is positive for bacteria, WBCs, nitrates and leukocyte esterase -- Patient has been placed on IV Rocephin 2 g IV daily -Urine and blood cultures are obtained; further recommendations once culture results are available 2. Acute renal injury; likely prerenal acidemia related to poor oral intake -- Will continue with IV fluid hydration with normal saline at a rate of 75 cc an hour, monitor strict ERICKSON's, daily weights, renal function electrolytes, avoid nephrotoxins and hypotension 3. Weakness/inability to ambulate; likely related to above; continue treatment plan as indicated above -Consult PT/OT 4. Paroxysmal atrial fibrillation; rate controlled on metoprolol 25 mg daily along with Eliquis 5 mg twice daily 5. Bilateral lower extremity chronic venous stasis ulcers 6. Hyperlipidemia; Lipitor 40 mg daily DVT prophylaxis; SCDs/Eliquis Status; full code
[2023-12-20] MEDS: levETIRAcetam IV 500 MG/5 ML VIAL IVP STA (15:40)
[2023-12-20] MEDS: HEPARIN SODIUM,PORCINE 5,000 UNIT/ML 1 ML VIAL SQ SCH (16:50)
[2023-12-20] MEDS: levETIRAcetam IV 500 MG/5 ML VIAL IVP SCH (20:17)
[2023-12-21 06:23] LABS: Anisocytosis Slight; Basophils % (A) 0 %; Eosinophils # (A) 0.1 k/uL (0-0.7); Eosinophils % (A) 1 %; HCT 29.1 % (34.0-46.0); Hypochromasia Moderate; Lymphocytes # (A) 0.9 k/uL (1.0-4.8); Lymphocytes % (A) 23 %; MCH 29.7 pg (25.0-35.0); MCHC 30.9 g/dL (31.0-37.0); MCV 96.3 fL (80.0-100.0); Macrocytosis Slight; Mean Platelet Volume 10.1; Monocytes # (A) 0.3 k/uL (0-1.0); Monocytes % (A) 7 %; Neutrophils # (A) 2.6 k/uL (1.3-7.7); Neutrophils % (A) 66 %; RBC 3.03 m/uL (3.80-5.40); RDW 17.5 % (11.5-15.5)
[2023-12-21 06:29] LABS: Platelet Count 85 k/uL (150-450)
[2023-12-21 06:38] LABS: African American GFR (CKD) 57 (>60 ml/min/1.73 sqM); Anion Gap 7 mmol/L; Blood Urea Nitrogen 30 mg/dL (7-17); Calcium 9.2 mg/dL (8.4-10.2); Carbon Dioxide 18 mmol/L (22-30); Chloride 119 mmol/L (98-107); Glucose 69 mg/dL (74-99); Non-African American GFR(CKD) 49 (>60 ml/min/1.73 sqM); Potassium 5.1 mmol/L (3.5-5.1); Sodium 144 mmol/L (137-145)
[2023-12-21 06:45] LABS: Glucose,Whole Blood 70 mg/dL (70-110)
[2023-12-21 07:25] LABS: Glucose,Whole Blood 70 mg/dL (70-110)
--- NOTE | 2023-12-21 08:00 | XR ---
EXAMINATION TYPE: XR chest 1V DATE OF EXAM: 12/21/2023 COMPARISON: 12/17/2023 INDICATION: Assess lungs prior abnormal TECHNIQUE: Single frontal view of the chest is obtained. FINDINGS: The heart size is normal. Previous cardiomegaly. Result The pulmonary vasculature is normal. The lungs are clear. IMPRESSION: 1. No acute pulmonary process.
[2023-12-21] MEDS: TROPICAMIDE 1% OPHTH DROPS 2 ML BTL BOTH EYES ONE (08:15)
[2023-12-21] MEDS: PROPARACAINE 0.5% OPHTH DROPS 15 ML BTL BOTH EYES ONE (08:15)
[2023-12-21] MEDS: PHENYLEPHRINE 2.5% OPHTH DRP 2ML BOTH EYES SCH (08:15)
--- NOTE | 2023-12-21 11:55 | P.PN ---
Subjective Progress Note Date: 12/21/23 Principal diagnosis: Acute mental status change exact etiology is unclear most likely acute metabolic encephalopathy On 12/20/2023, the patient got transferred to the intensive care unit. The patient became acutely unresponsive. She did have a left facial droop and she was nonverbal, barely responsive to any painful stimulation. Respiratory rate was also low and the patient was having shallow low rate respiration. Suspect an acute stroke. A code stroke was called and the patient underwent a CAT scan of the head that showed no acute abnormalities. No evidence of any bleed or stroke identified. Also, his CTA of the brain was also done that showed patent intracranial arteries. Patient was already on anticoagulation with Eliquis. Neuro interventional specialist was contacted and the patient was not found to be candidate for thrombolytics. Based on that, the patient got transferred to the intensive care unit. Currently she is on a BiPAP ST mode at a pressure of 12/5 with a backup rate of 12. FiO2 is being adjusted to maintain saturation above 90%. Blood gases are to follow. The patient is not responsive to any deep painful stimulation at this point and she is unresponsive. No seizure activity has been noted. Cardiac rhythm is sinus and the patient has history of paroxysmal atrial fibrillation maintained on anticoagulation. The patient was hospitalized earlier because of generalized weakness and inability to eat or drink. She was having generalized weakness. Suspected to have underlying urine tract infection. The patient is known to have previous episodes of UTI. UA was abnormal consistent with infection. Nevertheless, urine cultures have been negative. Since admission, the patient was treated with IV Rocephin. She was also receiving IV fluids normal saline at rate of 75 cc an hour. She was awake and responsive up to this morning. Blood work from today showed a sodium level of 142, potassium level of 5.6, bicarb is 19 with a BUN of 31 with a creatinine of 1.1. CBC is still pending from today. Most recent CBC showed a WBC count of 13 with a hemoglobin 9.5. She is on no pressors for now. She is afebrile. The viral screen has been negative. Neurology has been consulted. On a separate note, the patient has undergone a recent right eye surgery for glaucoma. Patient was reeval today on 12/21/2023, patient is doing well. Her mental status is improving, patient was admitted with altered mental status, and at 1 point she was being considered for intubation because there was a concern about protecting her airways. However while in the process of discussing CODE STATUS with family, and the family requested not to be intubated, patient did not get intubated and her mental status has been gradually improving. Today she seems to be slow but arousable, follows simple instructions. Does not seem to be in any distress, workup is still pending. She is on 2 L nasal cannula and O2 sats is 95% CBC is relatively normal except for hemoglobin of 9. Basic metabolic profile is normal BUN is 30 creatinine 1.08, chest x-ray showed no acute pulmonary disease, patient was seen by neurology, felt that the patient had ac kavon onset of unresponsiveness with encephalopathy, rule out CVA. Workup is nondiagnostic so far Objective - Vital Signs Vital signs: Vital Signs Temp 97.9 F 12/21/23 08:30 Pulse 71 12/21/23 11:00 Resp 12/21/23 11:00 BP 123/74 12/21/23 11:00 Pulse Ox 95 12/21/23 11:00 FiO2 30 12/21/23 00:00 Intake & Output 12/20/23 12/21/23 12/21/23 18:59 06:59 18:59 Intake Total 385 950 375 Output Total 1165 455 235 Balance -780 495 140 Weight 102 kg Intake: IV 10 875 375 Invasive Line 2 10 Sodium Chloride 0.9% 1, 825 375 000 ml @ 75 mls/hr IV . [id number] [facility] Rx#:[id number] cefTRIAXone 2 gm In 50 Sodium Chloride 0.9% 50 ml @ 100 mls/hr IVPB Q24H [facility] Rx#:[id number] Intake, IV Titration 375 75 Amount Sodium Chloride 0.9% 1, 375 75 000 ml @ 75 mls/hr IV . [id number] [facility] Rx#:[id number] Output: Urine 1165 455 235 Other: Voiding Method Indwelling Catheter Indwelling Catheter # Bowel Movements 1 - Exam General appearance: Reveals 78-year-old female awake, follows simple instructions she even knew that she was in the hospital. Head exam: Atraumatic, normocephalic. Eye exam: PERRLA, EOMI, nonicteric, no neck masses no JVD. ENT exam: Moist mucous membranes, throat is clear. Neck exam: Supple, no neck masses no JVD no stridor. Respiratory clear bilaterally diminished breath sounds at the bases no rhonchi no wheezes Cardiovascular Exam: Distant S1-S2, no S3 gallop, no murmur GI/Abdominal exam: Soft nontender no megaly no rebound no guarding Extremities exam: Clubbing edema or cyanosis Neurological exam: Arousable, follows simple instructions seems to be a bit slow however. Psychiatric exam: Normal mood affect and normal mental status examination Skin exam: Present: No rashes - Labs CBC & Chem 7: 12/21/23 05:30 12/21/23 05:30 Labs: Abnormal Lab Results - Last 24 Hours (Table) 12/20/23 12/21/23 12/21/23 Range/Units 13:50 05:30 05:30 RBC 3.03 L (3.80-5.40) m/uL Hgb 9.0 L (11.4-16.0) gm/dL Hct 29.1 L (34.0-46.0) % MCHC 30.9 L (31.0-37.0) g/dL RDW 17.5 H (11.5-15.5) % Plt Count 85 L (150-450) k/uL Lymphocytes # 0.9 L (1.0-4.8) k/uL ABG pH 7.33 L (7.35-7.45) ABG pO2 210 H (83-108) mmHg ABG O2 Saturation 99.0 H (94-97) % Chloride 119 H (98-107) mmol/L Carbon Dioxide 18 L (22-30) mmol/L BUN 30 H (7-17) mg/dL Creatinine 1.08 H (0.52-1.04) mg/dL Glucose 69 L (74-99) mg/dL Microbiology - Last 24 Hours (Table) 12/18/23 03:40 Blood Culture - Preliminary Blood 12/18/23 03:25 Blood Culture - Preliminary Blood Assessment and Plan Assessment: Impression: Acute altered mental status, improving most likely secondary to acute metabolic encephalopathy, possible CVA Paroxysmal atrial fibrillation presently in sinus Recurrent urinary tract infections patient is receiving Rocephin empirically Obesity with BMI of 39 Benign essential hypertension Recent eye surgery for cataract involving the right eye, patient is being followed by ophthalmology, possible glaucoma Degenerative joint disease Recommendation: Continue to monitor in the ICU for now. Continue to monitor neurological status, patient is being followed by neurology Continue IV fluids Continue Rocephin Patient will likely have repeat CT of the brain and repeat EEG Will continue to follow. Continue to monitor labs on a daily basis. Time with Patient: Less than 30
[2023-12-21] MEDS: VANCOMYCIN 500 MG MISCELLANE ONE (12:40)
[2023-12-21] MEDS: CEFTAZIDIME 1 GM MISCELLANE ONE (12:40)
--- NOTE | 2023-12-21 13:15 | EEG ---
ELECTROENCEPHALOGRAM REPORT PREAMBLE: This is a 78-year-old female who became acutely unresponsive. This study is performed to evaluate for any epileptiform activity. The patient is currently on Keppra, Toprol, Lenny synephrine. EEG FINDINGS: This is a 21-channel digital EEG recorded with video component, utilizing 10/20 international system with referential and bipolar montages. Background consists of moderately well-developed and regulated, mixed frequencies of 9 hertz alpha, intermixed with 1 to 2 hertz, moderate amplitude delta activity seen in bihemispheric region. Background does not seem to be reactive to eye opening and closing. Photic driving response was not seen. There is additional superimposed dysrhythmic theta and delta slowing seen in bitemporal region, left more than right. Different stages of sleep were not seen. No focal or generalized epileptiform activity was seen. IMPRESSION: This is an abnormal EEG due to, 1. Background slowing of moderate degree, suggestive of generalized cerebral dysfunction as can be seen with toxic metabolic encephalopathy or related to diffuse structural brain abnormality. Clinical correlation is recommended. 2. Superimposed bitemporal slowing, left more than right, suggestive of focal cortical neuronal dysfunction. 3. No epileptiform activity was seen. No electrographic seizure was recorded. MMODL / IJN: [id number] /
--- NOTE | 2023-12-21 13:35 | P.CON ---
Consult Note - . Consult date: 12/21/23 Assessment/Plan:: This is a 78 y/o female who has had bilateral cataract surgery in the past and recently, 30 NOV 2023, underwent an Ahmed valve placement in the right eye by Dr. Mahdi Singh, [facility]. She was last seen in the office on 13 December for post operative follow up and was doing well without any infection, and a low IOP. She apparently has a long standing history of advanced glaucoma and is still currently using glaucoma drops in the left. Her recent post operative medications for the right have consisted of prednisolone acetate 4 times daily and brimonidine 0.2% 1 drop twice daily. she has been admitted with a change in sensorium and was noted on admission to have the changes noted in right eye, therefore this consultation. Genl: Patient is not alert and took considerable stimulation by the nurse to elicit any response. Va: unable, due to lack of alertness. Ext: mild erythema and lichinification of the eyelids on the right, OS is unremarkable EOM: generally moving in unison Pupils: no APD IOP: via Tonopen, 22 mm Hg OD, 11 mm Hg OS @ 0745 Conj: injection 2+ and moderate chemosis OD, only, with vicryl sutures, temporally Cornea: Grade 3 cloudiness OD, clear OS AC: 5% hypopyon OD with drainage tube mid pupil with purulence about the tube opening. Lens: PC IOL, OU in good position. Vitreous and posterior pole, no red reflex noted OD, not tested OS A: 1) endophthalmitis OD, 2) PC IOL OU 3) glaucoma, unknown stage OU P: recommend obtain AC tap for I&D along with injection of antibiotics to control intraocular growth of infection, in the right eye. Recommend return to Dr. Singh as soon as discharged. Will modify ongoing therapy to reduce the vision changes likely to be accompanying intraocular infection. Will follow. Thank you for the consultation.
[2023-12-21 13:42] LABS: Glucose,Whole Blood 74 mg/dL (70-110)
--- NOTE | 2023-12-21 13:53 | P.PCN ---
Date of Procedure: 12/21/23 Preoperative Diagnosis: endophthalmitis, OD Postoperative Diagnosis: same Procedure(s) Performed: anterior chamber tap and injection of vanco/ceftriaxone. Implants: none Surgeon: Ady Gordon Estimated Blood Loss (ml): 0 Pathology: other (Culture for I&D on AC fluid) Condition: stable Disposition: ICU Indications for Procedure: Endophthalmitis, OD Operative Findings: no complications, specimen sent to lab for study. Description of Procedure: After obtaining consent, the right eye was prepped with povidone 10% to the skin and 5% to the conjuntival tissue. The eyelid opening was maintained with a Libermann speculum. the patient's head was stbilized by nursing staff throughout the procedure. A 30 Ga needle was passed through clear cornea into the anterior chamber aiming for the hypopyon to gather as much of the purulence as possible. Approximately 0.25 ml of fluid was withdrawn from the eye. This was passed to a culture tube for the studies of aerobic and anaerobic microorganisms. After the withdrawal the patient then received a combination of vancomycin 1mg/0.1 ml and ceftriaxone 2.25 mg/0.1ml compounded together. The patient received 0.2ml of the solution into the anterior chamber. Eye pressure after procedure was no formally read, however, the eye was tactilely soft. The povidone paint was removed and the eye was washed with BSS at the end of the case after removal of the eyelid speculum. There were no complications and she tolerated the procedure well.
[2023-12-21 14:51] LABS: Glucose,Whole Blood 65 mg/dL (70-110)
[2023-12-21] MEDS: DEXTROSE 50% SYRINGE 50 ML IVP STA (14:53)
[2023-12-21 15:19] LABS: Glucose,Whole Blood 104 mg/dL (70-110)
[2023-12-21] MEDS: DEXTROSE 50% SYRINGE 50 ML IVP ONE (16:17)
[2023-12-21] MEDS: MOXIFLOXACIN HCL 0.5% DROPS 3 ML BTL RIGHT EYE SCH (16:36)
--- NOTE | 2023-12-21 16:39 | P.PN ---
Subjective Progress Note Date: 12/21/23 Patient was seen for a follow-up. Patient is laying in the bed. Patient just had undergone some ophthalmologic procedure by Dr. Gordon. Fluid was drained from anterior chamber and some antibiotics was instilled. Per nursing report, patient is much improved. She is following commands. Nurse mentions that patient frequently says about "[employer] [place] [employer]", uncertain if she worked in that [employer]. She said it was October 2039. Sometimes she is answering questions, has very good finance analyst and lift her legs. She has some delayed return of the gag reflex. Objective - Vital Signs Vital signs: Vital Signs Temp 97.9 F 12/21/23 08:30 Pulse 71 12/21/23 11:00 Resp 14 12/21/23 11:00 BP 123/74 12/21/23 11:00 Pulse Ox 95 12/21/23 11:00 FiO2 30 12/21/23 00:00 Intake & Output 12/20/23 12/21/23 12/21/23 18:59 06:59 18:59 Intake Total 385 950 375 Output Total 1165 455 235 Balance -780 495 140 Weight 102 kg Intake: IV 10 875 375 Invasive Line 2 10 Sodium Chloride 0.9% 1, 825 375 000 ml @ 75 mls/hr IV . [id number] [facility] Rx#:[id number] cefTRIAXone 2 gm In 50 Sodium Chloride 0.9% 50 ml @ 100 mls/hr IVPB Q24H [facility] Rx#:[id number] Intake, IV Titration 375 75 Amount Sodium Chloride 0.9% 1, 375 75 000 ml @ 75 mls/hr IV . [id number] [facility] Rx#:[id number] Output: Urine 1165 455 235 Other: Voiding Method Indwelling Catheter Indwelling Catheter # Bowel Movements 1 - Exam Patient is still encephalopathic. However mentation is improved. Patient knows her full name but states that she is 48 years old. Patient knows that she is in [place] in [place]. She states current president is "Obiden". Patient believes it is December and the year is 1947. She denies headache. There is no neck stiffness, neck is supple. Her finance analyst strength is very normal bilaterally. Patient moves her legs to commands. There is redness of the lower legs bilater ally with some warmth feeling, concerning for cellulitis. Patient has bilateral Babinski's. Patient earlier had ripped her IVs, therefore now she is on wrist restraints. - Labs CBC & Chem 7: 12/21/23 05:30 12/21/23 05:30 Labs: Abnormal Lab Results - Last 24 Hours (Table) 12/20/23 12/21/23 12/21/23 Range/Units 13:50 05:30 05:30 RBC 3.03 L (3.80-5.40) m/uL Hgb 9.0 L (11.4-16.0) gm/dL Hct 29.1 L (34.0-46.0) % MCHC 30.9 L (31.0-37.0) g/dL RDW 17.5 H (11.5-15.5) % Plt Count 85 L (150-450) k/uL Lymphocytes # 0.9 L (1.0-4.8) k/uL ABG pH 7.33 L (7.35-7.45) ABG pO2 210 H (83-108) mmHg ABG O2 Saturation 99.0 H (94-97) % Chloride 119 H (98-107) mmol/L Carbon Dioxide 18 L (22-30) mmol/L BUN 30 H (7-17) mg/dL Creatinine 1.08 H (0.52-1.04) mg/dL Glucose 69 L (74-99) mg/dL Microbiology - Last 24 Hours (Table) 12/18/23 03:40 Blood Culture - Preliminary Blood 12/18/23 03:25 Blood Culture - Preliminary Blood Assessment and Plan Assessment: * Acute episode of altered mental status with unresponsiveness, unclear cause. Rule out acute CVA. No large vessel occlusion noted on the CTA. CT head showed no acute process. * Acute encephalopathy, unclear cause, probably toxic metabolic encephalopathy. Reasons multifactorial as mentioned below. * Rule out subclinical seizure, although unlikely, with negative EEG findings. * Acute UTI * Rule out cellulitis * Atrial fibrillation, on Eliquis * Osteoarthritis * History of lymphedema Plan: Patient's mentation has improved. Her examination is relatively nonfocal. Appears patient probably has metabolic encephalopathy. Patient has evidence of redness of the lower legs bilaterally, concerning for cellulitis. Patient's temperature is normal, and blood cultures negative so far. Patient has probable UTI, on ceftriaxone. We will consult infectious disease. Hold Eliquis, as per recommendation from Dr. Marcano, and patient started on aspirin 300 mg rectally. 2-D echo with bubble study to rule out PFO, pending CTA neck showed: Mild atherosclerotic disease without evidence of hemodynamically significant stenosis or dissection. Patent CTA head. No intracranial large vessel occlusion, significant stenosis or aneurysm. Repeat CT head in the morning. Patient will not be able to cooperate for MRI. Fasting a.m. lipid panel cholesterol 100, LDL 39.6, HDL 40, triglycerides 101 on 07/17/2023. Continue Lipitor 40 mg daily. Hemoglobin A1c 5.6 TSH 3.38, normal. B12 759, folate 13.8 on 07/17/2023. No need to repeat. EEG was abnormal due to background slowing of moderate degree, suggestive of encephalopathy. Also there was superimposed bitemporal slowing, L > R, suggestive of focal cortical neuronal dysfunction. No epileptiform activity was seen. Patient empirically placed on Keppra 1000 mg IV push x 1 dose, followed by Keppra 750 mg twice daily. We will consider discontinuing Keppra, once mentation normalizes. Optimize control of blood pressure. Neurochecks every 2 hours for 6 hours then every 4 hours. Telemetry monitoring rule out any arrhythmia PT, OT, speech therapy, when patient able to cooperate DVT prophylaxis: Patient was on Eliquis, currently on hold. Patient did receive Eliquis in the hospital and the last dose was about 8:30 AM 12/20/2023. Heparin 5000 units subcu every 8 hours Discussed with patient's nurse in detail.
[2023-12-21 16:53] LABS: Glucose,Whole Blood 93 mg/dL (70-110)
--- NOTE | 2023-12-21 18:13 | CA ---
Transthoracic Echo Report Name: Ashley Lang Age: 78 Gender: F : 1945 Exam Date: 12/21/2023 08:26 Exam Location: [facility] Ht (in): 63 Wt (lb): 220 Ordering Physician: Rito Orozco MD Attending/Referring Phys: Compensation Adjuster Rose Cartwright RCS Procedure CPT: Indications: CVA Cardiac Hx: Technical Quality: Poor Contrast 1: Total Dose (mL): Contrast 2: Total Dose (mL): MEASUREMENTS (Male / Female) Normal Values 2D ECHO LV Diastolic Diameter PLAX 5.1 cm 4.2 - 5.9 / 3.9 - 5.3 cm LV Systolic Diameter PLAX 3.7 cm IVS Diastolic Thickness 0.7 cm 0.6 - 1.0 / 0.6 - 0.9 cm LVPW Diastolic Thickness 0.9 cm 0.6 - 1.0 / 0.6 - 0.9 cm LV Relative Wall Thickness 0.3 LVOT Diameter 1.9 cm LV Diastolic Volume MOD BP 162.6 cm??? 67 - 155 / 56 - 104 cm??? LV Systolic Volume MOD BP 81.5 cm??? 22 - 58 / 19 - 49 cm??? LV Ejection Fraction MOD BP 49.9 % >= 55 % LV Cardiac Index MOD BP 3274.1 cm???/min???m??? LV Diastolic Volume MOD 4C 168.2 cm??? LV Systolic Volume MOD 4C 79.7 cm??? LV Ejection Fraction MOD 4C 52.6 % LV Cardiac Index MOD 4C 3566.8 cm???/min???m??? LV Diastolic Length 4C 8.9 cm LV Systolic Length 4C 7.4 cm LV Diastolic Volume MOD 2C 155.7 cm??? LV Systolic Volume MOD 2C 79.7 cm??? LV Ejection Fraction MOD 2C 48.8 % LV Cardiac Index MOD 2C 3067.6 cm???/min???m??? LV Diastolic Length 2C 8.7 cm LV Systolic Length 2C 7.0 cm LA Volume 78.5 cm??? 18 - 58 / 22 - 52 cm??? LA Volume Index 36.4 cm???/m??? 16 - 28 cm???/m??? Ascending Aorta Diameter 3.0 cm DOPPLER AV Peak Velocity 157.8 cm/s AV Peak Gradient 10.0 mmHg AV Mean Velocity 113.7 cm/s AV Mean Gradient 5.6 mmHg AV Velocity Time Integral 33.8 cm LVOT Peak Velocity 103.9 cm/s LVOT Peak Gradient 4.3 mmHg LVOT Velocity Time Integral 22.1 cm LVOT Stroke Volume 61.8 cm??? LVOT Stroke Volume Index 30.7 ml/m??? LVOT Cardiac Index 2494.0 cm???/min???m??? AV Area Cont Eq vti 1.8 cm??? AV Area Cont Eq pk 1.8 cm??? TR Peak Velocity 248.3 cm/s TR Peak Gradient 24.7 mmHg PV Peak Velocity 69.2 cm/s PV Peak Gradient 1.9 mmHg FINDINGS Left Ventricle Left ventricular ejection fraction is estimated at 50-55 %. Severely increased left ventricular diastolic volume. Severely increased left ventricular systolic volume. Mildly decreased left ventricular ejection fraction. Global hypokinesis. Right Ventricle Normal right ventricular size with normal function. Unable to estimate right ventricular systolic function. Right Atrium Normal right atrial size. Left Atrium Moderately increased left atrial volume. Mildly increased left atrial area. Mitral Valve Mitral valve thickened. Mitral annular calcification. No evidence for mitral valve prolapse. No mitral stenosis. Mild mitral regurgitation. Aortic Valve Aortic valve not well visualized. No aortic stenosis. Aortic aortic regurgitation. Tricuspid Valve Structurally normal tricuspid valve. No tricuspid stenosis. Trace tricuspid regurgitation. Pulmonic Valve Pulmonic valve not well visualized. No pulmonic stenosis. No pulmonic regurgitation. Pericardium No pericardial effusion. Aorta Normal size aortic root and proximal ascending aorta. CONCLUSIONS Normal LV function Mild mitral regurgitation Previewed by: Dr. Trell Melgar MD (Electronically Signed) Final Date: 21 December 2023 18:13
[2023-12-21 20:10] LABS: Glucose,Whole Blood 77 mg/dL (70-110)
--- NOTE | 2023-12-21 21:30 | P.CONS ---
History of Present Illness - Reason for Consult Consult date: 12/21/23 Possible cellulitis, AMS changes Requesting physician: Rito Orozco - Chief Complaint Weakness x few days - History of Present Illness Patient is a 78-year-old female with a past medical history significant for atrial fibrillation osteoarthritis patient was brought to the hospital 4 days ago for evaluation of increased weakness symptom has again been getting worse for about a day before the patient was brought into the hospital patient was unable to get out of bed not eating or drinking has been complaining of weakness all over patient on presentation to the hospital was afebrile subsequent noticed to be hypothermic with a temperature down to 90.7 F subs equent the patient temperature has normalized patient was nontachycardic hypertensive or hypoxic currently on 2 L nasal cannula oxygen patient did have a normal white count admission white count is up to 13,000 on 01/05/2024 BUN and creatinine mildly elevated liver enzymes are normal urine has been positive influenza RSV COVID testing was negative patient did have a chest x-ray cardiomegaly mild congestive changes correlate for mild CHF repeat chest x-ray with no acute pulmonary process patient was noticed to have erythema to bilateral lower extremity with concern for possible cellulitis prompting this consultation patient is currently being empirically treated with Rocephin 2 g daily for presumed UTI most information has been obtained from review the chart as the patient herself cannot provide any history no vomiting diarrhea or any changes reported by the nursing staff Review of Systems Positive points has been mentioned in HPI complete review could not be obtained because of his underlying mental status Past Medical History Past Medical History: Atrial Fibrillation, Eye Disorder, Osteoarthritis (OA), Vascular Disorder Additional Past Medical History / Comment(s): lower leg edema History of Any Multi-Drug Resistant Organisms: None Reported Past Surgical History: Appendectomy, Joint Replacement, Tubal Ligation Additional Past Surgical History / Comment(s): madeline hip and knees total replacement; cat sx with lens implants both eyes, surgery for glaucoma Past Anesthesia/Blood Transfusion Reactions: No Reported Reaction Past Psychological History: No Psychological Hx Reported Smoking Status: Never smoker Past Alcohol Use History: None Reported Past Drug Use History: None Reported - Past Family History Father Additional Family Medical History / Comment(s): PASSED OF OLD AGE per patient Mother Additional Family Medical History / Comment(s): PASSED OF OLD AGE per patient Medications and Allergies Home Medications Medication Instructions Recorded Confirmed Type Brimonidine Tartrate [Alphagan P 1 drop RIGHT EYE BID 01/27/23 12/18/23 History 0.2% Ophth Soln] Fluorometholone 0.1% Ophth Megan 1 drop LEFT EYE BID 01/27/23 12/18/23 History [Fml] Furosemide [Lasix] 40 mg PO DAILY 07/08/23 12/18/23 History Apixaban [Eliquis] 5 mg PO BID tab 07/15/23 12/18/23 Rx Atorvastatin [Lipitor] 40 mg PO DAILY tab 07/15/23 12/18/23 Rx Metoprolol Succinate (ER) [Toprol 25 mg PO DAILY tab 07/15/23 12/18/23 Rx XL] Albuterol Inhaler [Ventolin Hfa 1 - 2 puff INHALATION RT-TID PRN 08/30/23 12/18/23 History Inhaler] Losartan [Cozaar] 25 mg PO DAILY 08/30/23 12/18/23 History Omeprazole 20 mg PO AC-BRKFST 08/30/23 12/18/23 History Dorzolamide-Timol 2.23%/0.68% 1 drop LEFT EYE BID 12/18/23 12/18/23 History [Cosopt] Latanoprost Ophth [Xalatan 0.005%] 1 drop LEFT EYE BID 12/18/23 12/18/23 History prednisoLONE ACETATE 1% OPHTH 1 drop RIGHT EYE QID 12/18/23 12/18/23 History [Pred Forte 1%] cefUROXime axetiL [Ceftin] 500 mg PO BID 3 Days #6 tab 12/29/23 Rx Allergies Allergy/AdvReac Type Severity Reaction Status Date / Time No Known Allergies Allergy Verified 12/18/23 06:52 Physical Exam Vitals: Vital Signs Temp Pulse Resp BP Pulse Ox FiO2 12/21/23 19:00 71 19 154/73 97 12/21/23 18:00 72 13 156/117 97 12/21/23 17:00 67 141/89 97 12/21/23 16:30 71 117/58 97 12/21/23 16:00 73 20 137/65 97 12/21/23 15:30 68 6 L 148/55 96 12/21/23 15:00 96.9 F L 75 16 140/62 96 12/21/23 14:30 64 17 150/69 96 12/21/23 14:00 77 15 141/60 97 12/21/23 13:30 97.7 F 75 26 H 122/68 96 12/21/23 13:00 64 5 L 135/69 97 12/21/23 12:30 79 15 128/67 97 12/21/23 12:00 82 12 113/92 95 12/21/23 11:30 81 21 117/66 96 12/21/23 11:00 71 14 123/74 95 12/21/23 10:30 90 12 123/74 94 L 12/21/23 10:00 85 15 155/83 95 12/21/23 09:30 92 29 H 122/100 99 12/21/23 09:00 90 20 122/100 99 12/21/23 08:39 99 12/21/23 08:30 97.9 F 87 28 H 164/137 99 12/21/23 08:00 84 18 160/67 98 12/21/23 07:30 78 22 157/70 98 12/21/23 07:00 97.9 F 77 15 151/69 97 12/21/23 06:30 78 19 113/53 99 12/21/23 06:00 63 14 100/59 99 12/21/23 05:30 67 12 109/52 98 12/21/23 05:00 71 14 154/65 99 12/21/23 04:30 81 15 168/81 99 12/21/23 04:00 82 19 152/70 99 12/21/23 03:30 81 17 134/52 99 12/21/23 03:00 97.7 F 65 14 152/60 99 12/21/23 02:30 77 14 90/66 99 12/21/23 02:00 67 15 103/43 100 12/21/23 01:50 100 12/21/23 01:30 53 L 12 108/45 99 12/21/23 01:00 54 L 12 103/53 100 12/21/23 00:30 57 L 12 124/56 100 12/21/23 00:00 95.4 F L 58 L 14 116/60 99 30 12/20/23 23:38 30 12/20/23 23:30 56 L 15 123/61 100 04/14/24 23:00 97.2 F L 60 22 132/60 99 12/20/23 22:30 63 15 117/53 97 12/20/23 22:00 57 L 15 146/61 99 12/20/23 21:30 73 13 150/57 99 Intake and Output 12/21/23 12/21/23 12/21/23 06:59 14:59 22:59 Intake Total 600 600 375 Output Total 300 385 250 Balance 300 215 125 Intake: IV 600 600 375 Sodium Chloride 0.9% 1, 600 600 375 000 ml @ 75 mls/hr IV . [id number] [facility] Rx#:[id number] Output: Urine 300 385 250 Other: Voiding Method Indwelling Catheter Indwelling Catheter Indwelling Catheter Weight 102 kg GENERAL DESCRIPTION: Elderly female male lying in bed, no distress. No tachypnea or accessory muscle of respiration use. HEENT: Shows Pallor , no scleral icterus. Oral mucous membrane is dry. No pharyngeal erythema or thrush NECK: Trachea central, no thyromegaly. LUNGS: Unlabored breathing. Decreased breath sound at the base HEART: S1, S2, regular rate and rhythm. No loud murmur ABDOMEN: Soft, no tenderness , guarding or rigidity, no organomegaly EXTREMITIES: Diffuse swelling to bilateral lower extremity with some redness slightly warm SKIN: No rash, no masses palpable. NEUROLOGICAL: The patient is lethargic orientation could not be determined Results CBC & Chem 7: 12/29/23 05:34 12/29/23 05:34 Labs: Abnormal Lab Results - Last 24 Hours (Table) 12/21/23 12/21/23 12/21/23 Range/Units 05:30 05:30 14:50 RBC 3.03 L (3.80-5.40) m/uL Hgb 9.0 L (11.4-16.0) gm/dL Hct 29.1 L (34.0-46.0) % MCHC 30.9 L (31.0-37.0) g/dL RDW 17.5 H (11.5-15.5) % Plt Count 85 L (150-450) k/uL Lymphocytes # 0.9 L (1.0-4.8) k/uL Chloride 119 H (98-107) mmol/L Carbon Dioxide 18 L (22-30) mmol/L BUN 30 H (7-17) mg/dL Creatinine 1.08 H (0.52-1.04) mg/dL Glucose 69 L (74-99) mg/dL POC Glucose (mg/dL) 65 L (70-110) mg/dL Microbiology - Last 24 Hours (Table) 12/18/23 03:40 Blood Culture - Preliminary Blood 12/18/23 03:25 Blood Culture - Preliminary Blood Assessment and Plan (1) Bilateral lower leg cellulitis Status: Acute Code(s): L03.116 - CELLULITIS OF LEFT LOWER LIMB; L03.115 - CELLULITIS OF RIGHT LOWER LIMB SNOMED Code(s): 445037506 Plan: 1patient presented to hospital generalized weakness and this patient noticed to have elevated white count also hypothermia temperature subsequent normalized source could be UTI versus bilateral lower extremity cellulitis with diffuse swelling redness likely streptococcal disease is very hard to get any history from this patient underlying [employer] infection less likely but not entirely excluded. 2we will adjust antibiotic therapy to cefazolin 2 g every 8 hours to direct more towards the lower extremity cellulitis and see clinical response 3check inflammatory markers We will follow on clinical condition and cultures to further adjust medication if needed Thank you for this consultation we will follow the patient along with you Dictation was produced using [employer] dictation software. please excuse any grammatical, word or spelling errors. Time with Patient: Greater than 30
[2023-12-21] MEDS: ARTIFICIAL TEARS-HYPROMELLOSE DROPS 15 ML BTL BOTH EYES PRN (21:54)
[2023-12-21] MEDS: LATANOPROST 0.005% OPHTH DROPS 2.5 ML BTL LEFT EYE SCH (21:55)
[2023-12-22 00:03] LABS: Glucose,Whole Blood 64 mg/dL (70-110)
[2023-12-22] MEDS: DEXTROSE 50% SYRINGE 50 ML IVP STA ×2 (00:15→05:42)
[2023-12-22 00:33] LABS: Glucose,Whole Blood 128 mg/dL (70-110)
[2023-12-22 05:32] LABS: Glucose,Whole Blood 65 mg/dL (70-110)
[2023-12-22 06:10] LABS: Glucose,Whole Blood 109 mg/dL (70-110)
[2023-12-22 07:23] LABS: Anisocytosis Slight; Basophils % (A) 0 %; Eosinophils # (A) 0.1 k/uL (0-0.7); Eosinophils % (A) 1 %; HCT 28.5 % (34.0-46.0); HGB 9.1 gm/dL (11.4-16.0); Hypochromasia Slight; Lymphocytes # (A) 1.1 k/uL (1.0-4.8); Lymphocytes % (A) 26 %; MCH 30.3 pg (25.0-35.0); MCHC 31.9 g/dL (31.0-37.0); MCV 95.1 fL (80.0-100.0); Macrocytosis Slight; Mean Platelet Volume 10.1; Monocytes # (A) 0.3 k/uL (0-1.0); Monocytes % (A) 6 %; Neutrophils # (A) 2.7 k/uL (1.3-7.7); Neutrophils % (A) 64 %; RDW 17.6 % (11.5-15.5); WBC 4.2 k/uL (3.8-10.6)
[2023-12-22 07:30] LABS: African American GFR (CKD) 58 (>60 ml/min/1.73 sqM); Anion Gap 5 mmol/L; Blood Urea Nitrogen 24 mg/dL (7-17); C Reactive Protein 1.9 mg/dL (<1.0); Calcium 8.8 mg/dL (8.4-10.2); Carbon Dioxide 19 mmol/L (22-30); Chloride 119 mmol/L (98-107); Glucose 92 mg/dL (74-99); Non-African American GFR(CKD) 51 (>60 ml/min/1.73 sqM); Platelet Count 97 k/uL (150-450); Potassium 4.2 mmol/L (3.5-5.1); Sodium 143 mmol/L (137-145)
--- NOTE | 2023-12-22 08:11 | PN ---
PROGRESS NOTE DATE OF SERVICE: 12/21/2023 SUBJECTIVE: This is a 78-year-old woman who was admitted with acute UTI, also had episode of unresponsive with a left facial droop and neurology evaluation under progress. The patient also had hypopyon surgeries and Ophthalmology is following the patient closely. The change in mental status thought to be acute metabolic encephalopathy versus stroke. Neurology is following the patient closely. The patient is still mildly confused. PAST MEDICAL HISTORY: Reviewed. REVIEW OF SYSTEMS: Could not be taken. CURRENT MEDICATIONS: Reviewed include Lipitor, dose and rest of medications noted. PHYSICAL EXAMINATION: VITAL SIGNS: Pulse is 64, blood pressure 130/70, respiration 15. HEENT: Conjunctivae normal. CARDIOVASCULAR: S1, S2. RESPIRATIONS: Few scattered rhonchi. ABDOMEN: Soft. NERVOUS SYSTEM: Diffusely weak. LABORATORY DATA: Creatinine 1.08. ASSESSMENT: 1. Acute UTI, present on admission. 2. Change in mental status, possibly metabolic encephalopathy versus stroke. 3. History of hypopyon surgery. 4. Acute renal failure. 5. Weakness and inability to walk and gait dysfunction. 6. Paroxysmal atrial fibrillation. 7. Bilateral lower extremity chronic venous statis ulcers. 8. Hyperlipidemia. 9. Multiple complex medical issues. 10.Full code. RECOMMENDATIONS AND DISCUSSION: Recommended to continue current management, continue symptomatic treatment, and repeat labs. PT, OT evaluation, otherwise continue with empiric antibiotics and Neurology evaluation. Complete neurovascular workup. Prognosis guarded because of multiple complex medical issues. Further recommendations to follow. See orders for details. The patient monitored in ICU. The CT angio showed only mild disease without any hemodynamically significant stenosis. MMODL / IJN: [id number] /
--- NOTE | 2023-12-22 08:15 | P.CON ---
Consult Note - . Consult date: 12/22/23 Assessment/Plan:: This 78 y/o female with endophthalmitis is seen for follow up on anterior chamber tap. She is not expressing any coherent thoughts, but is partially responding to questions asked. I believe there is no discomfort in the right eye. Va: unable, likely good light perception on left, unable to determine for the right. IOP: 16 mm Hg OD, 08 mm Hg OS ( [place] @ 0745) EXT: moderate caking of mucoid debris in right eye Pupils:Mydriatic OU CONJ: mild injection OD, low-riding bleb, incision intact; white & quiet OS Cornea: Grade 2 clarity OD; clear OS AC: <5% hypopyon OD wiht drain tube in AC, no accumulation about the tube; D&Q OS Lens: PC IOL OU Vitreous: cloudy OD: clear OS Posterior: possible red reflex OD; not assessed OS A: endophthalmitis, OD, possibly improved, less corneal opacity and no increase in debris in AC. Awaiting labs form [place]. Glaucoma: OU, with Ahmed seton OD, probably working, IOP improved from yesterday; OS is stable Mydriasis, OU suspect accidental application of mydriatic agents P: Suspect improved endothalmitis, recommend continued drops without change, and upon discharge return to primary volcanology professor BERENICE . Continue with left eye glaucoma drops as currently scheduled.
[2023-12-22 08:57] LABS: Glucose,Whole Blood 71 mg/dL (70-110)
[2023-12-22] MEDS: PANTOPRAZOLE 40 MG/10 ML VIAL IVP SCH (09:08)
--- NOTE | 2023-12-22 09:24 | XR ---
EXAMINATION TYPE: XR chest 1V DATE OF EXAM: 12/22/2023 COMPARISON: 12/21/2023 HISTORY: 78-year-old female assess lungs TECHNIQUE: Single frontal view of the chest is obtained. FINDINGS: Heart borderline enlarged. Mild interstitial density is unchanged. No kristi consolidation or pleural effusion. IMPRESSION: Similar borderline cardiomegaly and mild interstitial densities.
[2023-12-22] MEDS ORDERED: DEXTROSE 50% SYRINGE 50 ML IVP PRN ×2 (09:37)
[2023-12-22 10:58] LABS: Glucose,Whole Blood 87 mg/dL (70-110)
[2023-12-22] MEDS: DEXTROSE 5%-0.45% NACL 1,000 ML IV SCH (11:59)
--- NOTE | 2023-12-22 12:42 | P.PN ---
Subjective Progress Note Date: 12/22/23 Principal diagnosis: Acute mental status change exact etiology is unclear most likely acute metabolic encephalopathy On 12/20/2023, the patient got transferred to the intensive care unit. The patient became acutely unresponsive. She did have a left facial droop and she was nonverbal, barely responsive to any painful stimulation. Respiratory rate was also low and the patient was having shallow low rate respiration. Suspect an acute stroke. A code stroke was called and the patient underwent a CAT scan of the head that showed no acute abnormalities. No evidence of any bleed or stroke identified. Also, his CTA of the brain was also done that showed patent intracranial arteries. Patient was already on anticoagulation with Eliquis. Neuro interventional specialist was contacted and the patient was not found to be candidate for thrombolytics. Based on that, the patient got transferred to the intensive care unit. Currently she is on a BiPAP ST mode at a pressure of 12/5 with a backup rate of 12. FiO2 is being adjusted to maintain saturation above 90%. Blood gases are to follow. The patient is not responsive to any deep painful stimulation at this point and she is unresponsive. No seizure activity has been noted. Cardiac rhythm is sinus and the patient has history of paroxysmal atrial fibrillation maintained on anticoagulation. The patient was hospitalized earlier because of generalized weakness and inability to eat or drink. She was having generalized weakness. Suspected to have underlying urine tract infection. The patient is known to have previous episodes of UTI. UA was abnormal consistent with infection. Nevertheless, urine cultures have been negative. Since admission, the patient was treated with IV Rocephin. She was also receiving IV fluids normal saline at rate of 75 cc an hour. She was awake and responsive up to this morning. Blood work from today showed a sodium level of 142, potassium level of 5.6, bicarb is 19 with a BUN of 31 with a creatinine of 1.1. CBC is still pending from today. Most recent CBC showed a WBC count of 13 with a hemoglobin 9.5. She is on no pressors for now. She is afebrile. The viral screen has been negative. Neurology has been consulted. On a separate note, the patient has undergone a recent right eye surgery for glaucoma. Patient was reeval today on 12/21/2023, patient is doing well. Her mental status is improving, patient was admitted with altered mental status, and at 1 point she was being considered for intubation because there was a concern about protecting her airways. However while in the process of discussing CODE STATUS with family, and the family requested not to be intubated, patient did not get intubated and her mental status has been gradually improving. Today she seems to be slow but arousable, follows simple instructions. Does not seem to be in any distress, workup is still pending. She is on 2 L nasal cannula and O2 sats is 95% CBC is relatively normal except for hemoglobin of 9. Basic metabolic profile is normal BUN is 30 creatinine 1.08, chest x-ray showed no acute pulmonary disease, patient was seen by neurology, felt that the patient had ac kavon onset of unresponsiveness with encephalopathy, rule out CVA. Workup is nondiagnostic so far reevaluated today on 12/22/2023, patient remains in the ICU, she is presently an overflow. Patient was seen by ophthalmology yesterday, and she had intraocular injection of antibiotics for her endophthalmitis. Overnight patient had 2 episodes of low blood sugar requiring dextrose, IV push. Patient remains on room air, doing well, asymptomatic, a bit confused but she is still oriented to place. WBC count is 4.2 hemoglobin is 9.1 basic metabolic profile is normal renal profile showed a BUN of 24 creatinine 1.05. His x-ray today showed borderline cardiomegaly and mild interstitial prominence. No evidence of pneumonia no evidence of pleural effusions Objective - Vital Signs Vital signs: Vital Signs Temp 97.8 F 12/22/23 12:00 Pulse 65 12/22/23 12:00 Resp 24 12/22/23 12:00 BP 131/75 12/22/23 12:00 Pulse Ox 96 12/22/23 12:00 FiO2 30 12/21/23 00:00 Intake & Output 12/21/23 12/22/23 12/22/23 18:59 06:59 18:59 Intake Total 900 950 375 Output Total 585 785 260 Balance 315 165 115 Weight 105.9 kg 105.9 kg Intake: IV 900 950 75 Sodium Chloride 0.9% 1, 900 900 75 000 ml @ 75 mls/hr IV . [id number] [facility] Rx#:[id number] cefTRIAXone 2 gm In 50 Sodium Chloride 0.9% 50 ml @ 100 mls/hr IVPB Q24H [facility] Rx#:[id number] Intake, IV Titration 300 Amount Dextrose 5%-0.45% NaCl 1, 300 000 ml @ 75 mls/hr IV . [id number] [facility] Rx#:[id number] Output: Urine 585 785 260 Other: Voiding Method Indwelling Catheter Indwelling Catheter Indwelling Catheter - Exam General appearance: Reveals 78-year-old female awake, oriented x 1 Head exam: Atraumatic, normocephalic. Eye exam: PERRLA, EOMI, nonicteric, no neck masses no JVD. ENT exam: Moist mucous membranes, throat is clear. Neck exam: Supple, no neck masses no JVD no stridor. Respiratory clear bilaterally diminished breath sounds at the bases no rhonchi no wheezes Cardiovascular Exam: Distant S1-S2, no S3 gallop, no murmur GI/Abdominal exam: Soft nontender no megaly no rebound no guarding Extremities exam: Clubbing edema or cyanosis Neurological exam: follows simple instructions seems to be a bit slow however. Oriented x 1 Psychiatric exam: Normal mood affect, oriented x 1 Skin exam: Present: No rashes - Labs CBC & Chem 7: 12/22/23 06:38 12/22/23 06:38 Labs: Abnormal Lab Results - Last 24 Hours (Table) 12/21/23 12/22/23 12/22/23 Range/Units 14:50 00:01 00:32 RBC (3.80-5.40) m/uL Hgb (11.4-16.0) gm/dL Hct (34.0-46.0) % RDW (11.5-15.5) % Plt Count (150-450) k/uL Chloride (98-107) mmol/L Carbon Dioxide (22-30) mmol/L BUN (7-17) mg/dL Creatinine (0.52-1.04) mg/dL POC Glucose (mg/dL) 65 L 64 L 128 H (70-110) mg/dL C-Reactive Protein (<1.0) mg/dL 12/22/23 12/22/23 12/22/23 Range/Units 05:31 06:38 06:38 RBC 3.00 L (3.80-5.40) m/uL Hgb 9.1 L (11.4-16.0) gm/dL Hct 28.5 L (34.0-46.0) % RDW 17.6 H (11.5-15.5) % Plt Count 97 L (150-450) k/uL Chloride 119 H (98-107) mmol/L Carbon Dioxide 19 L (22-30) mmol/L BUN 24 H (7-17) mg/dL Creatinine 1.05 H (0.52-1.04) mg/dL POC Glucose (mg/dL) 65 L (70-110) mg/dL C-Reactive Protein 1.9 H (<1.0) mg/dL Microbiology - Last 24 Hours (Table) 12/21/23 12:40 Gram Stain - Preliminary Eye - Right Wound Culture - Preliminary 12/18/23 03:40 Blood Culture - Preliminary Blood 12/18/23 03:25 Blood Culture - Preliminary Blood Assessment and Plan Assessment: Impression: Acute altered mental status, improving most likely secondary to acute metabolic encephalopathy, possible CVA Acute endophthalmitis requiring intraocular injections of antibiotics, given by ophthalmology. Possible sepsis with acute toxic metabolic encephalopathy Paroxysmal atrial fibrillation presently in sinus Recurrent urinary tract infections patient is receiving Rocephin empirically Obesity with BMI of 39 Benign essential hypertension Recent eye surgery for cataract involving the right eye, patient is being followed by ophthalmology, possible glaucoma Degenerative joint disease Recommendation: Transfer patient to a medical surgical bed Continue to monitor neurological status, patient is being followed by neurology Continue IV fluids Continue antibiotics Incentive spirometry Will continue to follow. Time with Patient: Less than 30
--- NOTE | 2023-12-22 14:47 | PN ---
PROGRESS NOTE DATE OF SERVICE: 12/22/2023 SUBJECTIVE: This is a 78-year-old woman who was admitted with multiple medical problems, UTI, also is confused today. The patient is acutely delirious today and the patient is closely monitored in ICU. No re-intubation at this time. A chest x-ray which was done today, which was evaluated today showed some borderline cardiomegaly. The patient also had hypopyon which has been evaluated by Dr. Gordon also. PAST MEDICAL HISTORY: Could not be taken as the patient is confused. REVIEW OF SYSTEMS: Could not be taken as the patient is confused. CURRENT MEDICATIONS: Reviewed include Cefazolin. PHYSICAL EXAMINATION: VITAL SIGNS: Pulse is 65, blood pressure 131/70, respirations 24. CHEST: Few scattered rhonchi and crackles. ABDOMEN: Soft. NERVOUS SYSTEM: Diffusely weak, tremors, could not be examined completely. The patient is confused. LABORATORY DATA: Noted. ASSESSMENT: 1. Acute UTI, present on admission. 2. Change in mental status, possible acute metabolic encephalopathy as well as acute delirium. 3. History of hypopyon surgery. 4. Acute renal failure. 5. Weakness, inability to walk and gait dysfunction. 6. Paroxysmal atrial fibrillation. 7. Bilateral lower extremity chronic venous stasis ulcers. 8. Hyperlipidemia. 9. Multiple complex medical issues. 10.Full code. 11.No re-intubation. RECOMMENDATIONS AND DISCUSSION: Recommended to continue current management, continue symptomatic treatment. Cultures are negative so far. I would recommend to continue current medications and adjust medications. A small dose of Seroquel may be recommended, but overall prognosis remains extremely guarded. Supplement vitamins. See orders for details. Further recommendations to follow. MMODL / IJN: [id number] /
[2023-12-22 17:29] LABS: Glucose,Whole Blood 109 mg/dL (70-110)
[2023-12-22] MEDS: THIAMINE 100 MG TAB PO SCH (17:29)
[2023-12-22 20:10] LABS: Glucose,Whole Blood 125 mg/dL (70-110)
[2023-12-22] MEDS: QUEtiapine 25 MG TAB PO SCH (22:01)
[2023-12-23 03:23] LABS: Glucose,Whole Blood 126 mg/dL (70-110)
[2023-12-23 06:58] LABS: Anisocytosis Slight; HCT 28.1 % (34.0-46.0); HGB 8.8 gm/dL (11.4-16.0); Hypochromasia Slight; MCH 29.7 pg (25.0-35.0); MCHC 31.3 g/dL (31.0-37.0); MCV 94.7 fL (80.0-100.0); Mean Platelet Volume 9.8; Platelet Count 103 k/uL (150-450); RBC 2.97 m/uL (3.80-5.40); RDW 17.7 % (11.5-15.5); WBC 2.6 k/uL (3.8-10.6)
[2023-12-23 07:14] LABS: ALT 17 U/L (4-34); AST 22 U/L (14-36); African American GFR (CKD) 69 (>60 ml/min/1.73 sqM); Albumin 2.7 g/dL (3.5-5.0); Alkaline Phosphatase 125 U/L (38-126); Anion Gap 7 mmol/L; Blood Urea Nitrogen 18 mg/dL (7-17); Calcium 8.7 mg/dL (8.4-10.2); Carbon Dioxide 17 mmol/L (22-30); Chloride 118 mmol/L (98-107); Glucose 123 mg/dL (74-99); Non-African American GFR(CKD) 60 (>60 ml/min/1.73 sqM); Sodium 142 mmol/L (137-145); Total Bilirubin 0.3 mg/dL (0.2-1.3); Total Protein 5.9 g/dL (6.3-8.2)
[2023-12-23 07:58] LABS: Monocytes # (M) 0.26 k/uL (0-1.0); Neutrophils # (M) 1.64 k/uL (1.3-7.7); Neutrophils % (M) 63 %; Nucleated Red Blood Cells 0 /100 WBC (0-0); Total Cells Counted 100
[2023-12-23] MEDS: MULTIVITAMINS, THERA 1 EACH TAB PO SCH (11:48)
[2023-12-23] MEDS: FOLIC ACID 1 MG TAB PO SCH (11:48)
[2023-12-23 11:52] LABS: Glucose,Whole Blood 128 mg/dL (70-110)
--- NOTE | 2023-12-23 12:51 | P.PN ---
Subjective Progress Note Date: 12/23/23 Principal diagnosis: Acute mental status change exact etiology is unclear most likely acute metabolic encephalopathy On 12/20/2023, the patient got transferred to the intensive care unit. The patient became acutely unresponsive. She did have a left facial droop and she was nonverbal, barely responsive to any painful stimulation. Respiratory rate was also low and the patient was having shallow low rate respiration. Suspect an acute stroke. A code stroke was called and the patient underwent a CAT scan of the head that showed no acute abnormalities. No evidence of any bleed or stroke identified. Also, his CTA of the brain was also done that showed patent intracranial arteries. Patient was already on anticoagulation with Eliquis. Neuro interventional specialist was contacted and the patient was not found to be candidate for thrombolytics. Based on that, the patient got transferred to the intensive care unit. Currently she is on a BiPAP ST mode at a pressure of 12/5 with a backup rate of 12. FiO2 is being adjusted to maintain saturation above 90%. Blood gases are to follow. The patient is not responsive to any deep painful stimulation at this point and she is unresponsive. No seizure activity has been noted. Cardiac rhythm is sinus and the patient has history of paroxysmal atrial fibrillation maintained on anticoagulation. The patient was hospitalized earlier because of generalized weakness and inability to eat or drink. She was having generalized weakness. Suspected to have underlying urine tract infection. The patient is known to have previous episodes of UTI. UA was abnormal consistent with infection. Nevertheless, urine cultures have been negative. Since admission, the patient was treated with IV Rocephin. She was also receiving IV fluids normal saline at rate of 75 cc an hour. She was awake and responsive up to this morning. Blood work from today showed a sodium level of 142, potassium level of 5.6, bicarb is 19 with a BUN of 31 with a creatinine of 1.1. CBC is still pending from today. Most recent CBC showed a WBC count of 13 with a hemoglobin 9.5. She is on no pressors for now. She is afebrile. The viral screen has been negative. Neurology has been consulted. On a separate note, the patient has undergone a recent right eye surgery for glaucoma. Patient was reeval today on 12/21/2023, patient is doing well. Her mental status is improving, patient was admitted with altered mental status, and at 1 point she was being considered for intubation because there was a concern about protecting her airways. However while in the process of discussing CODE STATUS with family, and the family requested not to be intubated, patient did not get intubated and her mental status has been gradually improving. Today she seems to be slow but arousable, follows simple instructions. Does not seem to be in any distress, workup is still pending. She is on 2 L nasal cannula and O2 sats is 95% CBC is relatively normal except for hemoglobin of 9. Basic metabolic profile is normal BUN is 30 creatinine 1.08, chest x-ray showed no acute pulmonary disease, patient was seen by neurology, felt that the patient had ac kavon onset of unresponsiveness with encephalopathy, rule out CVA. Workup is nondiagnostic so far reevaluated today on 12/22/2023, patient remains in the ICU, she is presently an overflow. Patient was seen by ophthalmology yesterday, and she had intraocular injection of antibiotics for her endophthalmitis. Overnight patient had 2 episodes of low blood sugar requiring dextrose, IV push. Patient remains on room air, doing well, asymptomatic, a bit confused but she is still oriented to place. WBC count is 4.2 hemoglobin is 9.1 basic metabolic profile is normal renal profile showed a BUN of 24 creatinine 1.05. His x-ray today showed borderline cardiomegaly and mild interstitial prominence. No evidence of pneumonia no evidence of pleural effusions Patient was reevaluated , remains in the ICU, her mental status continues to wax and wane. Today she seems to be slower, nonetheless she is arousable, she is oriented only x 1/place, she knew where she was. Otherwise could not get much information from the patient. Patient is quite lethargic. Labs are a bit abnormal with WBC count of 2.6 hemoglobin 8.8 platelets are 10 3000 basic metabolic profile is normal bicarb is 17 renal profile is not Objective - Vital Signs Vital signs: Vital Signs Temp 94.8 F L 12/23/23 08:00 Pulse 62 12/23/23 12:00 Resp 14 12/23/23 12:00 BP 138/62 12/23/23 12:00 Pulse Ox 96 12/23/23 12:00 FiO2 30 12/21/23 00:00 Intake & Output 12/22/23 12/23/23 12/23/23 18:59 06:59 18:59 Intake Total 375 1350 500 Output Total 260 680 285 Balance 115 670 215 Weight 105.9 kg 105.8 kg Intake: IV 75 Sodium Chloride 0.9% 1, 75 000 ml @ 75 mls/hr IV . [id number] [facility] Rx#:[id number] Intake, IV Titration 300 1350 500 Amount Dextrose 5%-0.45% NaCl 1, 300 1350 450 000 ml @ 75 mls/hr IV . [id number] [facility] Rx#:[id number] ceFAZolin 2 gm In Sodium 50 Chloride 0.9% 50 ml @ 100 mls/hr IVPB Q8H [facility] Rx#: [id number] Output: Urine 260 680 285 Other: Voiding Method Indwelling Catheter Indwelling Catheter Indwelling Catheter - Exam General appearance: Reveals 78-year-old female awake, oriented x 1 Head exam: Atraumatic, normocephalic. Eye exam: PERRLA, EOMI, nonicteric, no neck masses no JVD. ENT exam: Moist mucous membranes, throat is clear. Neck exam: Supple, no neck masses no JVD no stridor. Respiratory clear bilaterally diminished breath sounds at the bases no rhonchi no wheezes Cardiovascular Exam: Distant S1-S2, no S3 gallop, no murmur GI/Abdominal exam: Soft nontender no megaly no rebound no guarding Extremities exam: Clubbing edema or cyanosis Neurological exam: follows simple instructions seems to be a bit slow however. Oriented x 1 Psychiatric exam: Normal mood affect, oriented x 1 Skin exam: Present: No rashes - Labs CBC & Chem 7: 12/23/23 06:01 12/23/23 06:01 Labs: Abnormal Lab Results - Last 24 Hours (Table) 12/22/23 12/23/23 12/23/23 Range/Units 20:08 03:21 06:01 WBC 2.6 L (3.8-10.6) k/uL RBC 2.97 L (3.80-5.40) m/uL Hgb 8.8 L (11.4-16.0) gm/dL Hct 28.1 L (34.0-46.0) % RDW 17.7 H (11.5-15.5) % Plt Count 103 L (150-450) k/uL Lymphocytes # (Manual) 0.60 L (1.0-4.8) k/uL Chloride (98-107) mmol/L Carbon Dioxide (22-30) mmol/L BUN (7-17) mg/dL Glucose (74-99) mg/dL POC Glucose (mg/dL) 125 H 126 H (70-110) mg/dL Total Protein (6.3-8.2) g/dL Albumin (3.5-5.0) g/dL 12/23/23 12/23/23 Range/Units 06:01 11:50 WBC (3.8-10.6) k/uL RBC (3.80-5.40) m/uL Hgb (11.4-16.0) gm/dL Hct (34.0-46.0) % RDW (11.5-15.5) % Plt Count (150-450) k/uL Lymphocytes # (Manual) (1.0-4.8) k/uL Chloride 118 H (98-107) mmol/L Carbon Dioxide 17 L (22-30) mmol/L BUN 18 H (7-17) mg/dL Glucose 123 H (74-99) mg/dL POC Glucose (mg/dL) 128 H (70-110) mg/dL Total Protein 5.9 L (6.3-8.2) g/dL Albumin 2.7 L (3.5-5.0) g/dL Microbiology - Last 24 Hours (Table) 12/21/23 12:40 Gram Stain - Final Eye - Right Wound Culture - Final Assessment and Plan Assessment: Impression: Acute altered mental status, improving most likely secondary to acute metabolic encephalopathy, possible CVA Acute endophthalmitis requiring intraocular injections of antibiotics, given by ophthalmology. Possible sepsis with acute toxic metabolic encephalopathy Paroxysmal atrial fibrillation presently in sinus Recurrent urinary tract infections patient is receiving Rocephin empirically Obesity with BMI of 39 Benign essential hypertension Recent eye surgery for cataract involving the right eye, patient is being followed by ophthalmology, possible glaucoma Degenerative joint disease Recommendation: Will transfer the patient out of the ICU to a regular medical floor once a bed is available Continue to monitor neurological status, patient is being followed by neurology Continue IV fluids Continue antibiotics Continue DVT prophylaxis and GI prophylaxis Will continue to follow. Time with Patient: Less than 30
[2023-12-23 16:15] LABS: Glucose,Whole Blood 108 mg/dL (70-110)
--- NOTE | 2023-12-23 20:57 | PN ---
PROGRESS NOTE DATE OF SERVICE: 12/23/2023 SUBJECTIVE: This 78-year-old woman was admitted with multiple medical problems with UTI, had significant change in mental status and severe delirium at this time. The patient also had an eye infection. The patient also had some pancytopenia, the patient is closely monitored at this time. No fever, no cough. PAST MEDICAL HISTORY: Reviewed. REVIEW OF SYSTEMS: Could not be taken. CURRENT MEDICATIONS: Reviewed include cefazolin. OBJECTIVE: VITAL SIGNS: Pulse is 60, blood pressure 120/90, respirations 14. HEENT: Conjunctivae normal. CARDIOVASCULAR: S1, S2. RESPIRATIONS: History scattered rhonchi. ABDOMEN: Soft nose diffusely weak. LABORATORY DATA: WBC 2.2, hemoglobin 8.8, rest of the labs are noted. The chest x-ray done yesterday, reviewed, personally showed some highly are a prognosis and mild interstitial prominence. The cultures are negative. ASSESSMENT: 1. Acute UTI on presentation. 2. Bilateral leg cellulitis. 3. Change in mental status and acute delirium. 4. History of hypopyon surgery. 5. Acute renal failure. 6. Weakness and gait dysfunction. 7. Paroxysmal atrial fibrillation. 8. Mild pancytopenia of undetermined urology. 9. Bilateral lower extremity chronic venous stasis ulcer. 10.Hyperlipidemia. 11.Multiple complex medical issues. 12.Full code with no reintubation. RECOMMENDATIONS AND DISCUSSION: Recommended to continue current management, continue symptomatic treatment. Otherwise at this time continue with antibiotics follow the cultures, symptomatic treatment. The patient also had some mild pancytopenia the etiology of which is not certain. I would recommend Hematology Oncology consultation as well. Prognosis guarded. Further recommendations to follow. MMODL / IJN: [id number] / MTDD
[2023-12-23 20:59] LABS: Glucose,Whole Blood 121 mg/dL (70-110)
[2023-12-23 23:10] LABS: Glucose,Whole Blood 107 mg/dL (70-110)
[2023-12-24 04:10] LABS: Glucose,Whole Blood 126 mg/dL (70-110)
[2023-12-24 04:39] LABS: Anisocytosis Slight; Basophils % (A) 0 %; Eosinophils # (A) 0.1 k/uL (0-0.7); Eosinophils % (A) 2 %; HGB 8.4 gm/dL (11.4-16.0); Hypochromasia Slight; Lymphocytes # (A) 0.8 k/uL (1.0-4.8); Lymphocytes % (A) 29 %; MCH 29.6 pg (25.0-35.0); MCV 95.5 fL (80.0-100.0); Macrocytosis Slight; Mean Platelet Volume 9.4; Monocytes # (A) 0.2 k/uL (0-1.0); Monocytes % (A) 7 %; Neutrophils # (A) 1.6 k/uL (1.3-7.7); Neutrophils % (A) 60 %; Platelet Count 107 k/uL (150-450); RBC 2.83 m/uL (3.80-5.40); RDW 17.4 % (11.5-15.5); WBC 2.7 k/uL (3.8-10.6)
[2023-12-24 04:58] LABS: ALT 12 U/L (4-34); AST 19 U/L (14-36); African American GFR (CKD) 66 (>60 ml/min/1.73 sqM); Albumin 2.5 g/dL (3.5-5.0); Alkaline Phosphatase 107 U/L (38-126); Anion Gap 6 mmol/L; Blood Urea Nitrogen 16 mg/dL (7-17); Calcium 8.4 mg/dL (8.4-10.2); Carbon Dioxide 17 mmol/L (22-30); Chloride 119 mmol/L (98-107); Glucose 111 mg/dL (74-99); Non-African American GFR(CKD) 58 (>60 ml/min/1.73 sqM); Sodium 142 mmol/L (137-145); Total Bilirubin 0.2 mg/dL (0.2-1.3); Total Protein 5.4 g/dL (6.3-8.2)
--- NOTE | 2023-12-24 07:36 | P.CRDCN ---
History of Present Illness Consult date: 12/24/23 History of present illness: The patient is a pleasant 78-year-old female patient with a past medical history significant for hypertension and paroxysmal atrial tachycardia and overweight was admitted to the hospital with change in mental status and we consulted to see the patient because of the bradycardia. The patient was brought with a change in mental status felt initially to be related to an acute stroke where the stroke code was called and the patient underwent CT scan of the brain which did not show any acute abnormalities. Subsequently the diagnosis of stroke was eliminated completely. We consulted to see the patient because of the bradycardia. The patient was noted to have an infection in the eye requiring antibiotic at this point and requiring intraocular injection of antibiotic. The patient was noted to be bradycardic with nocturnal bradycardia and heart rate in the 40s and sometimes bradycardia during the day with heart rate in the 50s. Ap parently she is not very symptomatic with the bradycardia with no symptoms of dizziness or lightheadedness and no presyncope or syncope and no symptoms of any chest pain or chest discomfort or shortness of breath. The patient somewhat is a poor historian. No coronary artery disease or congestive heart failure. She is known to have paroxysmal atrial fibrillation and has been maintaining on oral anticoagulation with Eliquis. Beside that she is on Toprol-XL at 25 mg p.o. daily. She underwent further investigation including an EKG showing sinus mechanism with no significant ST or T wave abnormalities but first-degree AV block and echocardiogram revealed normal biventricular dimensions and systolic function with no significant valvular abnormalities. The blood work revealed anemia with a hemoglobin of 8.4. The examination reveals regular rhythm with a distant heart sounds and systolic murmur at the right upper sternal border with clear breathing sounds bilaterally and mild bilateral lower extremities edema noted Assessment An eye infection Sepsis secondary to the above Paroxysmal atrial fibrillation Sinus bradycardia Multiple comorbid conditions Chronic anemia Plan Decrease the dose of Toprol-XL to 12.5 mg p.o. daily Currently oral anticoagulation with Eliquis is on hold The echocardiogram was reviewed Follow-up with the patient Past Medical History Past Medical History: Atrial Fibrillation, Eye Disorder, Osteoarthritis (OA), Vascular Disorder Additional Past Medical History / Comment(s): lower leg edema History of Any Multi-Drug Resistant Organisms: None Reported Past Surgical History: Appendectomy, Joint Replacement, Tubal Ligation Additional Past Surgical History / Comment(s): madeline hip and knees total replacement; cat sx with lens implants both eyes, surgery for glaucoma Past Anesthesia/Blood Transfusion Reactions: No Reported Reaction Past Psychological History: No Psychological Hx Reported Smoking Status: Never smoker Past Alcohol Use History: None Reported Past Drug Use History: None Reported - Past Family History Father Additional Family Medical History / Comment(s): PASSED OF OLD AGE per patient Mother Additional Family Medical History / Comment(s): PASSED OF OLD AGE per patient Medications and Allergies Home Medications Medication Instructions Recorded Confirmed Type Brimonidine Tartrate [Alphagan P 1 drop RIGHT EYE BID 01/27/23 12/18/23 History 0.2% Ophth Soln] Fluorometholone 0.1% Ophth Megan 1 drop LEFT EYE BID 01/27/23 12/18/23 History [Fml] Furosemide [Lasix] 40 mg PO DAILY 07/08/23 12/18/23 History Apixaban [Eliquis] 5 mg PO BID tab 07/15/23 12/18/23 Rx Atorvastatin [Lipitor] 40 mg PO DAILY tab 07/15/23 12/18/23 Rx Metoprolol Succinate (ER) [Toprol 25 mg PO DAILY tab 07/15/23 12/18/23 Rx XL] Albuterol Inhaler [Ventolin Hfa 1 - 2 puff INHALATION RT-TID PRN 08/30/23 12/18/23 History Inhaler] Losartan [Cozaar] 25 mg PO DAILY 08/30/23 12/18/23 History Omeprazole 20 mg PO AC-BRKFST 08/30/23 12/18/23 History Dorzolamide-Timol 2.23%/0.68% 1 drop LEFT EYE BID 12/18/23 12/18/23 History [Cosopt] Latanoprost Ophth [Xalatan 0.005%] 1 drop LEFT EYE BID 12/18/23 12/18/23 History prednisoLONE ACETATE 1% OPHTH 1 drop RIGHT EYE QID 12/18/23 12/18/23 History [Pred Forte 1%] Allergies Allergy/AdvReac Type Severity Reaction Status Date / Time No Known Allergies Allergy Verified 12/18/23 06:52 Physical Exam Vitals: Vital Signs Temp Pulse Pulse Resp BP BP Pulse Ox 12/24/23 06:00 49 L 12 97 12/24/23 05:00 97 F L 49 L 11 L 106/49 94 L 12/24/23 04:00 48 L 12 96 12/24/23 03:00 46 L 7 L 100/50 96 12/24/23 02:00 45 L 13 105/50 96 12/24/23 01:00 97 F L 47 L 12 99/49 97 12/24/23 00:00 44 L 7 L 135/63 95 12/23/23 23:00 94 F L 57 L 8 L 129/52 96 12/23/23 22:00 45 L 12 102/61 97 12/23/23 21:00 45 L 15 100/45 96 12/23/23 20:00 94 F L 49 L 48 L 10 L 107/47 103/52 97 12/23/23 19:00 49 L 4 L 114/46 94 L 12/23/23 18:00 52 L 7 L 109/52 97 12/23/23 17:00 52 L 8 L 106/48 97 12/23/23 16:00 53 L 8 L 113/45 97 12/23/23 15:00 56 L 7 L 110/46 95 12/23/23 14:00 97.6 F 68 12 96/80 12/23/23 13:00 72 7 L 146/59 96 12/23/23 12:00 62 14 138/62 96 12/23/23 11:00 60 14 120/50 97 12/23/23 10:00 53 L 14 124/54 97 12/23/23 09:00 50 L 8 L 129/63 97 12/23/23 08:00 94.8 F L 49 L 7 L 129/57 98 Intake and Output 12/23/23 12/24/23 12/24/23 22:59 06:59 14:59 Intake Total 350 1000 Output Total 200 250 Balance 150 750 Intake: Intake, IV Titration 350 1000 Amount Dextrose 5%-0.45% NaCl 1, 300 900 000 ml @ 75 mls/hr IV . [id number] [facility] Rx#:[id number] ceFAZolin 2 gm In Sodium 50 100 Chloride 0.9% 50 ml @ 100 mls/hr IVPB Q8H [facility] Rx#: [id number] Output: Urine 200 250 Other: Voiding Method Indwelling Catheter Indwelling Catheter Weight 108 kg Results 12/24/23 04:03 12/24/23 04:03 Cardiac Enzymes 12/24/23 Range/Units 04:03 AST 19 (14-36) U/L CBC 12/24/23 Range/Units 04:03 WBC 2.7 L (3.8-10.6) k/uL RBC 2.83 L (3.80-5.40) m/uL Hgb 8.4 L (11.4-16.0) gm/dL Hct 27.0 L (34.0-46.0) % Plt Count 107 L (150-450) k/uL Comprehensive Metabolic Panel 12/24/23 Range/Units 04:03 Sodium 142 (137-145) mmol/L Potassium 4.0 (3.5-5.1) mmol/L Chloride 119 H (98-107) mmol/L Carbon Dioxide 17 L (22-30) mmol/L BUN 16 (7-17) mg/dL Creatinine 0.95 (0.52-1.04) mg/dL Glucose 111 H (74-99) mg/dL Calcium 8.4 (8.4-10.2) mg/dL AST 19 (14-36) U/L ALT 12 (4-34) U/L Alkaline Phosphatase 107 (38-126) U/L Total Protein 5.4 L (6.3-8.2) g/dL Albumin 2.5 L (3.5-5.0) g/dL Current Medications Generic Name Dose Route Start Last Admin Trade Name Freq PRN Reason Stop Dose Admin Acetaminophen 650 mg 12/17/23 23:03 Acetaminophen Tab 325 Mg Tab PO Q6HR PRN Mild Pain or Fever > 100.5 Artificial Tears 1 drops 12/21/23 06:00 12/21/23 21:54 Artificial Tears-Hypromellose Drops 15 Ml Btl BOTH EYES 1 drops QID PRN Administration Dry Eye(s) Aspirin 300 mg 12/20/23 14:30 12/23/23 14:46 Aspirin 300 Mg Supp RECTAL 300 mg DAILY [facility] Administration Atorvastatin Calcium 40 mg 12/19/23 09:00 12/23/23 09:18 Atorvastatin 40 Mg Tab PO Not Given DAILY [facility] Brimonidine Tartrate 1 drops 12/18/23 21:00 12/23/23 23:01 Brimonidine Tartrate 0.2% Drops 5 Ml Btl RIGHT EYE 1 drops BID [facility] Administration Dextrose/Water 25 ml 12/22/23 09:37 Dextrose 50% Syringe 50 Ml IVP PER PROTOCOL PRN Hypoglycemia Protocol Dextrose/Water 50 ml 12/22/23 09:37 Dextrose 50% Syringe 50 Ml IVP PER PROTOCOL PRN Hypoglycemia Protocol Dorzolamide/Timolol 1 drops 12/18/23 21:00 12/23/23 23:01 Dorzolamide-Timolol 2.23%/0.68 10ml Btl LEFT EYE 1 drops BID [facility] Administration Fluorometholone 1 drops 12/18/23 21:00 12/23/23 23:01 Fluorometholone 0.1% Ophth Drops 5 Ml Btl LEFT EYE 1 drops BID [facility] Administration Folic Acid 1 mg 12/23/23 12:00 12/23/23 11:48 Folic Acid 1 Mg Tab PO Not Given DAILY@1200 [facility] Hydralazine HCl 10 mg 12/19/23 20:22 12/23/23 05:55 Hydralazine Hcl 20 Mg/Ml 1 Ml Vial IVP 10 mg Q6HR PRN Administration Blood Pressure - High Cefazolin Sodium 2 gm/ Sodium 50 mls @ 100 mls/hr 12/22/23 05:00 12/24/23 05:23 Chloride IVPB 100 mls/hr Q8H [facility] Administration Protocol Dextrose/Sodium Chloride 1,000 mls @ 75 mls/hr 12/22/23 09:45 12/24/23 05:24 Dextrose 5%-1/2ns Iv Soln IV 75 mls/hr .[id number] [facility] Administration Latanoprost 1 drops 12/21/23 21:00 12/23/23 23:02 Latanoprost 0.005% Ophth Drops 2.5 Ml Btl LEFT EYE 1 drops HS [facility] Administration Levetiracetam 750 mg 12/20/23 21:00 12/23/23 23:05 Levetiracetam Iv 500 Mg/5 Ml Vial IVP 750 mg Q12HR [facility] Administration Metoprolol Succinate 25 mg 12/18/23 11:25 12/23/23 09:18 Metoprolol Succinate (Er) 25 Mg Tab.Er.24h PO Not Given DAILY [facility] Moxifloxacin HCl 1 drops 12/21/23 16:00 12/23/23 23:02 Moxifloxacin Hcl 0.5% Drops 3 Ml Btl RIGHT EYE 12/28/23 09:01 1 drops TID [facility] Administration Multivitamins 1 each 12/23/23 12:00 12/23/23 11:48 Multivitamins, Thera 1 Each Tab PO Not Given DAILY@1200 [facility] Naloxone HCl 0.2 mg 12/17/23 23:03 Naloxone 0.4 Mg/Ml 1 Ml Vial IV Q2M PRN Opioid Reversal Pantoprazole Sodium 40 mg 12/22/23 09:00 12/23/23 09:29 Pantoprazole 40 Mg/10 Ml Vial IVP 40 mg DAILY [facility] Administration Phenylephrine HCl 1 drops 12/21/23 06:00 12/24/23 05:24 Phenylephrine 2.5% Ophth Drp 2ml BOTH EYES 1 drops DIRECTED [facility] Administration Prednisolone Acetate 1 drops 12/18/23 13:00 12/23/23 23:01 Prednisolone Acetate 1% Ophth Drops 5 Ml Btl RIGHT EYE 1 drops QID [facility] Administration Quetiapine Fumarate 12.5 mg 12/22/23 21:00 12/23/23 23:17 Quetiapine 25 Mg Tab PO Not Given HS [facility] Thiamine HCl 100 mg 12/22/23 17:30 12/23/23 16:48 Thiamine 100 Mg Tab PO Not Given BID-W/MEALS [facility] Intake and Output 12/23/23 12/24/23 12/24/23 22:59 06:59 14:59 Intake Total 350 1000 Output Total 200 250 Balance 150 750 Intake: Intake, IV Titration 350 1000 Amount Dextrose 5%-0.45% NaCl 1, 300 900 000 ml @ 75 mls/hr IV . [id number] [facility] Rx#:[id number] ceFAZolin 2 gm In Sodium 50 100 Chloride 0.9% 50 ml @ 100 mls/hr IVPB Q8H [facility] Rx#: [id number] Output: Urine 200 250 Other: Voiding Method Indwelling Catheter Indwelling Catheter Weight 108 kg 12/24/23 04:03 12/24/23 04:03
[2023-12-24 08:16] LABS: Glucose,Whole Blood 104 mg/dL (70-110)
[2023-12-24] MEDS: METOPROLOL SUCCINATE (ER) 25 MG TAB.ER.24H PO SCH (09:54)
--- NOTE | 2023-12-24 11:40 | P.PN ---
Subjective Progress Note Date: 12/23/23 Patient was seen for a follow-up. Patient is laying in the bed. Patient is keeping her eyes closed. However she does wake up to calling her name and answers appropriately. Patient states she feels "fine, thank you". Please refer to examination below. Patient denies any headache. Denies any chest pa in. Per nursing report, patient woke up 3 times. She knows who she is. She asked for her daughter. Patient is moving all 4 extremities. Objective - Vital Signs Vital signs: Vital Signs Temp 97.6 F 12/23/23 14:00 Pulse 56 L 12/23/23 15:00 Resp 7 L 12/23/23 15:00 BP 110/46 12/23/23 15:00 Pulse Ox 95 12/23/23 15:00 FiO2 30 12/21/23 00:00 Intake & Output 12/22/23 12/23/23 12/23/23 18:59 06:59 18:59 Intake Total 375 1350 500 Output Total 260 680 285 Balance 115 670 215 Weight 105.9 kg 105.8 kg Intake: IV 75 Sodium Chloride 0.9% 1, 75 000 ml @ 75 mls/hr IV . [id number] [facility] Rx#:[id number] Intake, IV Titration 300 1350 500 Amount Dextrose 5%-0.45% NaCl 1, 300 1350 450 000 ml @ 75 mls/hr IV . [id number] [facility] Rx#:[id number] ceFAZolin 2 gm In Sodium 50 Chloride 0.9% 50 ml @ 100 mls/hr IVPB Q8H [facility] Rx#: [id number] Output: Urine 260 680 285 Other: Voiding Method Indwelling Catheter Indwelling Catheter Indwelling Catheter - Exam Patient is still encephalopathic, however much improved. Patient on waking up, answers appropriately. She states that the month is December and the year is 2019. She knows that she is in the hospital in [place] in [facility] in [place]. She could not tell name of the hospital however. Patient knows name of current president Mr. Billy. Patient denies headache. Patient's face is symmetric and tongue protrudes midline. Her right eye is injected. Left pupil is round and reacting. Visual cabrera are somewhat difficult to assess. Patient did not cooperate. On muscle tone testing there is no pronator drift. The strength is normal in the arms and legs except left shoulder which is weak. Biceps triceps and wrecker operator are normal. Sensory to touch is equal with no neglect. - Labs CBC & Chem 7: 12/24/23 04:03 12/24/23 04:03 Labs: Abnormal Lab Results - Last 24 Hours (Table) 12/22/23 12/23/23 12/23/23 Range/Units 20:08 03:21 06:01 WBC 2.6 L (3.8-10.6) k/uL RBC 2.97 L (3.80-5.40) m/uL Hgb 8.8 L (11.4-16.0) gm/dL Hct 28.1 L (34.0-46.0) % RDW 17.7 H (11.5-15.5) % Plt Count 103 L (150-450) k/uL Lymphocytes # (Manual) 0.60 L (1.0-4.8) k/uL Chloride (98-107) mmol/L Carbon Dioxide (22-30) mmol/L BUN (7-17) mg/dL Glucose (74-99) mg/dL POC Glucose (mg/dL) 125 H 126 H (70-110) mg/dL Total Protein (6.3-8.2) g/dL Albumin (3.5-5.0) g/dL 12/23/23 12/23/23 Range/Units 06:01 11:50 WBC (3.8-10.6) k/uL RBC (3.80-5.40) m/uL Hgb (11.4-16.0) gm/dL Hct (34.0-46.0) % RDW (11.5-15.5) % Plt Count (150-450) k/uL Lymphocytes # (Manual) (1.0-4.8) k/uL Chloride 118 H (98-107) mmol/L Carbon Dioxide 17 L (22-30) mmol/L BUN 18 H (7-17) mg/dL Glucose 123 H (74-99) mg/dL POC Glucose (mg/dL) 128 H (70-110) mg/dL Total Protein 5.9 L (6.3-8.2) g/dL Albumin 2.7 L (3.5-5.0) g/dL Microbiology - Last 24 Hours (Table) 12/21/23 12:40 Anaerobic Culture - Preliminary Eye - Right 12/18/23 03:40 Blood Culture - Final Blood 12/18/23 03:25 Blood Culture - Final Blood 12/21/23 12:40 Gram Stain - Final Eye - Right Wound Culture - Final Assessment and Plan Assessment: * Acute episode of altered mental status with unresponsiveness, unclear cause. No large vessel occlusion noted on the CTA. CT head showed no acute process. CVA less likely. Examination nonfocal. * Acute encephalopathy, unclear cause, probably toxic metabolic encephalopathy. Reasons multifactorial as mentioned below. * Rule out subclinical seizure, although unlikely, with negative EEG findings. * Acute UTI * Probable bilateral lower extremity cellulitis * Atrial fibrillation, on Eliquis * Osteoarthritis * History of lymphedema Plan: Patient's mentation has remarkably improved. Her examination is relatively nonfocal. Appears patient probably has metabolic encephalopathy. Patient has evidence of redness of the lower legs bilaterally, concerning for c ellulitis. Patient's temperature is normal, and blood cultures negative so far. Patient has probable UTI, on ceftriaxone. Appreciate ID input. Patient denies headache, is fairly well-oriented, therefore no clinical evidence of meningitis. Repeat CT head. Resume Eliquis when patient able to take p.o. medications. Patient currently on aspirin 300 mg rectally. 2-D echo revealed normal left ventricular function with EF 50 to 55%. Severely increased left ventricular diastolic volume. Severely increased left ventricular systolic volume. Global hypokinesis. Moderately increased left atrial volume. Mild MR. CTA neck showed: Mild atherosclerotic disease without evidence of hemodynamically significant stenosis or dissection. Patent CTA head. No intracranial large vessel occlusion, significant stenosis or aneurysm. Fasting a.m. lipid panel cholesterol 100, LDL 39.6, HDL 40, triglycerides 101 on 07/17/2023. Continue Lipitor 40 mg daily. Hemoglobin A1c 5.6 TSH 3.38, normal. B12 759, folate 13.8 on 07/17/2023. No need to repeat. EEG was abnormal due to background slowing of moderate degree, suggestive of encephalopathy. Also there was superimposed bitemporal slowing, L > R, sug gestive of focal cortical neuronal dysfunction. No epileptiform activity was seen. Patient empirically placed on Keppra 1000 mg IV push x 1 dose, followed by Keppra 750 mg twice daily. We will consider switching Keppra to oral medication and decrease dose in the morning, when able to take orally. Plan to rapidly taper off. Optimize control of blood pressure. Neurochecks every 2 hours for 6 hours then every 4 hours. Telemetry monitoring rule out any arrhythmia PT, OT, speech therapy, when patient able to cooperate DVT prophylaxis: Patient was on Eliquis, currently on hold. Patient did receive Eliquis in the hospital and the last dose was about 8:30 AM 12/20/2023. Heparin 5000 units subcu every 8 hours Discussed with patient's nurse in detail.
[2023-12-24 11:54] LABS: Glucose,Whole Blood 106 mg/dL (70-110)
--- NOTE | 2023-12-24 12:13 | XR ---
EXAMINATION TYPE: XR chest 1V portable DATE OF EXAM: 12/24/2023 Comparison: 12/22/2023 Clinical History: 78-year-old female CHF Findings: Heart mildly enlarged. Interstitial density. Focal opacity left mid lung. No pleural effusion. Impression: 1. Mild cardiomegaly and interstitial density, possible mild pulmonary vascular congestion. 2. More focal opacity at the left midlung could represent patchy pulmonary edema or developing pneumo magdiel.
--- NOTE | 2023-12-24 12:23 | P.PN ---
Subjective Progress Note Date: 12/24/23 Principal diagnosis: Acute mental status change exact etiology is unclear most likely acute metabolic encephalopathy On 12/20/2023, the patient got transferred to the intensive care unit. The patient became acutely unresponsive. She did have a left facial droop and she was nonverbal, barely responsive to any painful stimulation. Respiratory rate was also low and the patient was having shallow low rate respiration. Suspect an acute stroke. A code stroke was called and the patient underwent a CAT scan of the head that showed no acute abnormalities. No evidence of any bleed or stroke identified. Also, his CTA of the brain was also done that showed patent intracranial arteries. Patient was already on anticoagulation with Eliquis. Neuro interventional specialist was contacted and the patient was not found to be candidate for thrombolytics. Based on that, the patient got transferred to the intensive care unit. Currently she is on a BiPAP ST mode at a pressure of 12/5 with a backup rate of 12. FiO2 is being adjusted to maintain saturation above 90%. Blood gases are to follow. The patient is not responsive to any deep painful stimulation at this point and she is unresponsive. No seizure activity has been noted. Cardiac rhythm is sinus and the patient has history of paroxysmal atrial fibrillation maintained on anticoagulation. The patient was hospitalized earlier because of generalized weakness and inability to eat or drink. She was having generalized weakness. Suspected to have underlying urine tract infection. The patient is known to have previous episodes of UTI. UA was abnormal consistent with infection. Nevertheless, urine cultures have been negative. Since admission, the patient was treated with IV Rocephin. She was also receiving IV fluids normal saline at rate of 75 cc an hour. She was awake and responsive up to this morning. Blood work from today showed a sodium level of 142, potassium level of 5.6, bicarb is 19 with a BUN of 31 with a creatinine of 1.1. CBC is still pending from today. Most recent CBC showed a WBC count of 13 with a hemoglobin 9.5. She is on no pressors for now. She is afebrile. The viral screen has been negative. Neurology has been consulted. On a separate note, the patient has undergone a recent right eye surgery for glaucoma. Patient was reeval today on 12/21/2023, patient is doing well. Her mental status is improving, patient was admitted with altered mental status, and at 1 point she was being considered for intubation because there was a concern about protecting her airways. However while in the process of discussing CODE STATUS with family, and the family requested not to be intubated, patient did not get intubated and her mental status has been gradually improving. Today she seems to be slow but arousable, follows simple instructions. Does not seem to be in any distress, workup is still pending. She is on 2 L nasal cannula and O2 sats is 95% CBC is relatively normal except for hemoglobin of 9. Basic metabolic profile is normal BUN is 30 creatinine 1.08, chest x-ray showed no acute pulmonary disease, patient was seen by neurology, felt that the patient had ac kavon onset of unresponsiveness with encephalopathy, rule out CVA. Workup is nondiagnostic so far reevaluated today on 12/22/2023, patient remains in the ICU, she is presently an overflow. Patient was seen by ophthalmology yesterday, and she had intraocular injection of antibiotics for her endophthalmitis. Overnight patient had 2 episodes of low blood sugar requiring dextrose, IV push. Patient remains on room air, doing well, asymptomatic, a bit confused but she is still oriented to place. WBC count is 4.2 hemoglobin is 9.1 basic metabolic profile is normal renal profile showed a BUN of 24 creatinine 1.05. His x-ray today showed borderline cardiomegaly and mild interstitial prominence. No evidence of pneumonia no evidence of pleural effusions Patient was reevaluated today, remains in the ICU, her mental status continues to wax and wane. Today she seems to be slower, nonetheless she is arousable, she is oriented only x 1/place, she knew where she was. Otherwise could not get much information from the patient. Patient is quite lethargic. Labs are a bit abnormal with WBC count of 2.6 hemoglobin 8.8 platelets are 10 3000 basic metabolic profile is normal bicarb is 17 renal profile is normal Patient was today on 12/24/2023, remains in the ICU as an overflow, patient is on room air, does not seem to be in any distress, she is still on antibiotics still on 0.9 normal saline at 75 cc/h. Mentation barlow this is the best I have seen her today, patient is awake alert oriented, does not seem to be in any distress, and she is in a very pleasant mood. WBC count is 2.7 hemoglobin 8.4 basic metabolic profile is normal bicarb is 17 BUN is 16 creatinine 0.95 TSH is a bit on the high side 4.9 Objective - Vital Signs Vital signs: Vital Signs Temp 97.7 F 12/24/23 09:00 Pulse 58 L 12/24/23 09:00 Resp 19 12/24/23 09:00 BP 128/59 12/24/23 09:00 Pulse Ox 97 12/24/23 09:00 FiO2 30 12/21/23 00:00 Intake & Output 12/23/23 12/24/23 12/24/23 18:59 06:59 18:59 Intake Total 850 1000 Output Total 485 250 Balance 365 750 Weight 108 kg Intake: Intake, IV Titration 850 1000 Amount Dextrose 5%-0.45% NaCl 1, 750 900 000 ml @ 75 mls/hr IV . [id number] [facility] Rx#:[id number] ceFAZolin 2 gm In Sodium 100 100 Chloride 0.9% 50 ml @ 100 mls/hr IVPB Q8H [facility] Rx#: [id number] Output: Urine 485 250 Other: Voiding Method Indwelling Catheter Indwelling Catheter Indwelling Catheter - Exam General appearance: Reveals 78-year-old female awake, alert and oriented x 3 Head exam: Atraumatic, normocephalic. Eye exam: PERRLA, EOMI, nonicteric, no neck masses no JVD. ENT exam: Moist mucous membranes, throat is clear. Neck exam: Supple, no neck masses no JVD no stridor. Respiratory clear bilaterally diminished breath sounds at the bases no rhonchi no wheezes Cardiovascular Exam: Distant S1-S2, no S3 gallop, no murmur GI/Abdominal exam: Soft nontender no megaly no rebound no guarding Extremities exam: Clubbing edema or cyanosis Neurological exam: Alert and oriented x 3, no gross focal neurologic deficit Psychiatric exam: Normal mood affect, normal mental status Skin exam: Present: No rashes - Labs CBC & Chem 7: 12/24/23 04:03 12/24/23 04:03 Labs: Abnormal Lab Results - Last 24 Hours (Table) 12/23/23 12/24/23 12/24/23 Range/Units 20:58 04:03 04:03 WBC 2.7 L (3.8-10.6) k/uL RBC 2.83 L (3.80-5.40) m/uL Hgb 8.4 L (11.4-16.0) gm/dL Hct 27.0 L (34.0-46.0) % RDW 17.4 H (11.5-15.5) % Plt Count 107 L (150-450) k/uL Lymphocytes # 0.8 L (1.0-4.8) k/uL Chloride 119 H (98-107) mmol/L Carbon Dioxide 17 L (22-30) mmol/L Glucose 111 H (74-99) mg/dL POC Glucose (mg/dL) 121 H (70-110) mg/dL Total Protein 5.4 L (6.3-8.2) g/dL Albumin 2.5 L (3.5-5.0) g/dL TSH (0.465-4.680) mIU/L 12/24/23 12/24/23 Range/Units 04:08 08:54 WBC (3.8-10.6) k/uL RBC (3.80-5.40) m/uL Hgb (11.4-16.0) gm/dL Hct (34.0-46.0) % RDW (11.5-15.5) % Plt Count (150-450) k/uL Lymphocytes # (1.0-4.8) k/uL Chloride (98-107) mmol/L Carbon Dioxide (22-30) mmol/L Glucose (74-99) mg/dL POC Glucose (mg/dL) 126 H (70-110) mg/dL Total Protein (6.3-8.2) g/dL Albumin (3.5-5.0) g/dL TSH 4.940 H (0.465-4.680) mIU/L Microbiology - Last 24 Hours (Table) 12/21/23 12:40 Anaerobic Culture - Preliminary Eye - Right 12/18/23 03:40 Blood Culture - Final Blood 12/18/23 03:25 Blood Culture - Final Blood 12/21/23 12:40 Gram Stain - Final Eye - Right Wound Culture - Final Assessment and Plan Assessment: Impression: Acute altered mental status, improving most likely secondary to acute metabolic encephalopathy, possible CVA, resolved patient seems to be back to normal today Acute endophthalmitis requiring intraocular injections of antibiotics, given by ophthalmology. Possible sepsis with acute toxic metabolic encephalopathy Paroxysmal atrial fibrillation presently in sinus Recurrent urinary tract infections patient is receiving Rocephin empirically Obesity with BMI of 39 Benign essential hypertension Recent eye surgery for cataract involving the right eye, patient is being followed by ophthalmology, possible glaucoma Degenerative joint disease Recommendation: Continue present supportive care measures Transferred to medical bed/3 S. Continue antibiotics Continue DVT prophylaxis and GI prophylaxis Will continue to follow. Time with Patient: Less than 30
[2023-12-24] MEDS: ASPIRIN 81 MG PO SCH (12:51)
[2023-12-24] MEDS: APIXABAN 5 MG TAB PO SCH (13:13)
--- NOTE | 2023-12-24 14:28 | P.CONS ---
History of Present Illness - Reason for Consult Consult date: 12/24/23 pancytopenia Requesting physician: Kelvin Green - Chief Complaint neuro deficits - History of Present Illness Ms. Lang is a 78-year-old female with PMH of chronic lymphedema, A-fib on Eliquis, who had recent glaucoma surgery almost 2 weeks ago presenting to the emergency department with complaints of weakness x 1 day, unable to get out of bed. Daughter reported slurred speech. When seen the patient answers questions appropriately, states that she was ambulatory prior to admission. We are consulted because of pancytopenia. There is no documentation of a history of malignancy or hematological problems. On chart review it is noted that there have been some mildly low white blood cell and platelet counts in the last 6 months, anemia rather persistent in the 8 range. She was admitted in July 2023 for nonhealing ulcerations to the sacrum and bilateral lower extremities. She was admitted in August for generalized weakness and inability to care for herself. There are consults for Infectious Disease, Neurology, Cardiology and Critical Care for ICU management. When seen today she denied any pain, she does not report any new medications. UA is suspicious for UTI. Review of Systems 10 point ROS is neg except as stated in HPI Past Medical History Past Medical History: Atrial Fibrillation, Eye Disorder, Osteoarthritis (OA), Vascular Disorder Additional Past Medical History / Comment(s): lower leg edema History of Any Multi-Drug Resistant Organisms: None Reported Past Surgical History: Appendectomy, Joint Replacement, Tubal Ligation Additional Past Surgical History / Comment(s): madeline hip and knees total replacement; cat sx with lens implants both eyes, surgery for glaucoma Past Anesthesia/Blood Transfusion Reactions: No Reported Reaction Past Psychological History: No Psychological Hx Reported Smoking Status: Never smoker Past Alcohol Use History: None Reported Past Drug Use History: None Reported - Past Family History Father Additional Family Medical History / Comment(s): PASSED OF OLD AGE per patient Mother Additional Family Medical History / Comment(s): PASSED OF OLD AGE per patient Medications and Allergies Home Medications Medication Instructions Recorded Confirmed Type Brimonidine Tartrate [Alphagan P 1 drop RIGHT EYE BID 01/27/23 12/18/23 History 0.2% Ophth Soln] Fluorometholone 0.1% Ophth Megan 1 drop LEFT EYE BID 01/27/23 12/18/23 History [Fml] Furosemide [Lasix] 40 mg PO DAILY 07/08/23 12/18/23 History Apixaban [Eliquis] 5 mg PO BID tab 07/15/23 12/18/23 Rx Atorvastatin [Lipitor] 40 mg PO DAILY tab 07/15/23 12/18/23 Rx Metoprolol Succinate (ER) [Toprol 25 mg PO DAILY tab 07/15/23 12/18/23 Rx XL] Albuterol Inhaler [Ventolin Hfa 1 - 2 puff INHALATION RT-TID PRN 08/30/23 12/18/23 History Inhaler] Losartan [Cozaar] 25 mg PO DAILY 08/30/23 12/18/23 History Omeprazole 20 mg PO AC-BRKFST 08/30/23 12/18/23 History Dorzolamide-Timol 2.23%/0.68% 1 drop LEFT EYE BID 12/18/23 12/18/23 History [Cosopt] Latanoprost Ophth [Xalatan 0.005%] 1 drop LEFT EYE BID 12/18/23 12/18/23 History prednisoLONE ACETATE 1% OPHTH 1 drop RIGHT EYE QID 12/18/23 12/18/23 History [Pred Forte 1%] Allergies Allergy/AdvReac Type Severity Reaction Status Date / Time No Known Allergies Allergy Verified 12/18/23 06:52 Physical Exam Vitals: Vital Signs Temp Pulse Pulse Resp BP BP Pulse Ox 12/24/23 08:00 52 L 7 L 110/53 96 12/24/23 07:00 64 6 L 110/53 97 12/24/23 06:00 49 L 12 97 12/24/23 05:00 97 F L 49 L 11 L 106/49 94 L 12/24/23 04:00 48 L 12 96 12/24/23 03:00 46 L 7 L 100/50 96 12/24/23 02:00 45 L 13 105/50 96 12/24/23 01:00 97 F L 47 L 12 99/49 97 12/24/23 00:00 44 L 7 L 135/63 95 12/23/23 23:00 94 F L 57 L 8 L 129/52 96 12/23/23 22:00 45 L 12 102/61 97 12/23/23 21:00 45 L 15 100/45 96 12/23/23 20:00 94 F L 49 L 48 L 10 L 107/47 103/52 97 12/23/23 19:00 49 L 4 L 114/46 94 L 12/23/23 18:00 52 L 7 L 109/52 97 12/23/23 17:00 52 L 8 L 106/48 97 12/23/23 16:00 53 L 8 L 113/45 97 12/23/23 15:00 56 L 7 L 110/46 95 12/23/23 14:00 97.6 F 68 12 96/80 12/23/23 13:00 72 7 L 146/59 96 12/23/23 12:00 62 14 138/62 96 12/23/23 11:00 60 14 120/50 97 12/23/23 10:00 53 L 14 124/54 97 12/23/23 09:00 50 L 8 L 129/63 97 Intake and Output 12/23/23 12/24/23 12/24/23 22:59 06:59 14:59 Intake Total 350 1000 Output Total 200 250 Balance 150 750 Intake: Intake, IV Titration 350 1000 Amount Dextrose 5%-0.45% NaCl 1, 300 900 000 ml @ 75 mls/hr IV . [id number] [facility] Rx#:[id number] ceFAZolin 2 gm In Sodium 50 100 Chloride 0.9% 50 ml @ 100 mls/hr IVPB Q8H [facility] Rx#: [id number] Output: Urine 200 250 Other: Voiding Method Indwelling Catheter Indwelling Catheter Weight 108 kg - Constitutional General appearance: cooperative, no acute distress, obese - EENT Eyes: anicteric sclerae, EOMI ENT: hearing grossly normal - Respiratory Respiratory: bilateral: CTA - Cardiovascular Rhythm: regular Heart sounds: normal: S1, S2 Abnormal Heart Sounds: no systolic murmur, no diastolic murmur, no rub, no S3 Gallop, no S4 Gallop, no click, no other leg Peripheral Edema: bilateral: Trace - Gastrointestinal General gastrointestinal: no absent bowel sounds, no decreased bowel sounds, no distended, no hepatomegaly, no hyperactive bowel sounds, normal bowel sounds, no organomegaly, no rigid, no scaphoid, soft, no splenomegaly, no tenderness, no umbilical hernia, no ventral hernia - Integumentary Skin on the bilateral lower extremities is thickened, mildly reddened, no oozing or drainage. - Neurologic Neurologic: CNII-XII intact - Musculoskeletal Musculoskeletal: generalized weakness - Psychiatric Psychiatric: A&O x's 3, appropriate affect, intact judgment & insight Results CBC & Chem 7: 12/24/23 04:03 12/24/23 04:03 Labs: Abnormal Lab Results - Last 24 Hours (Table) 12/23/23 12/23/23 12/24/23 Range/Units 11:50 20:58 04:03 WBC 2.7 L (3.8-10.6) k/uL RBC 2.83 L (3.80-5.40) m/uL Hgb 8.4 L (11.4-16.0) gm/dL Hct 27.0 L (34.0-46.0) % RDW 17.4 H (11.5-15.5) % Plt Count 107 L (150-450) k/uL Lymphocytes # 0.8 L (1.0-4.8) k/uL Chloride (98-107) mmol/L Carbon Dioxide (22-30) mmol/L Glucose (74-99) mg/dL POC Glucose (mg/dL) 128 H 121 H (70-110) mg/dL Total Protein (6.3-8.2) g/dL Albumin (3.5-5.0) g/dL 12/24/23 12/24/23 Range/Units 04:03 04:08 WBC (3.8-10.6) k/uL RBC (3.80-5.40) m/uL Hgb (11.4-16.0) gm/dL Hct (34.0-46.0) % RDW (11.5-15.5) % Plt Count (150-450) k/uL Lymphocytes # (1.0-4.8) k/uL Chloride 119 H (98-107) mmol/L Carbon Dioxide 17 L (22-30) mmol/L Glucose 111 H (74-99) mg/dL POC Glucose (mg/dL) 126 H (70-110) mg/dL Total Protein 5.4 L (6.3-8.2) g/dL Albumin 2.5 L (3.5-5.0) g/dL Microbiology - Last 24 Hours (Table) 12/21/23 12:40 Anaerobic Culture - Preliminary Eye - Right 12/18/23 03:40 Blood Culture - Final Blood 12/18/23 03:25 Blood Culture - Final Blood 12/21/23 12:40 Gram Stain - Final Eye - Right Wound Culture - Final Chest x-ray: report reviewed CT Scan - head: report reviewed Assessment and Plan (1) Pancytopenia Current Visit: Yes Status: Acute Priority: Medium Code(s): D61.818 - OTHER PANCYTOPENIA SNOMED Code(s): 953144195 Plan: Pancytopenia -Anemia and thrombocytopenia noted to be somewhat chronic at least since July 2023, WBCs are lower now than they have been in the past. -Pancytopenia workup ordered -Suspect chronic wounds and inflammation contributing to low counts. Suspect an acute urinary tract infection. -None of the patient's counts are in a dangerous range at this time. ANC adequate at 1.6. Transfuse for hemoglobin less than 7 or if symptomatic. Transfuse for platelets less than 10,000 or if symptomatic. -CBC monitoring while inpatient. Would anticipate that as patient acute condition improves counts would at least return to her baseline Doctor attests: I performed a history and physical examination of this patient, developed impression and plan of care. Discussed with dictator. I agree with dictators note, documented as a scribe.
--- NOTE | 2023-12-24 14:45 | P.PN ---
Subjective Progress Note Date: 12/22/23 Principal diagnosis: Reason for follow-up is bilateral lower extremity cellulitis Patient is a 78-year-old female with a past medical history significant for atrial fibrillation osteoarthritis patient was brought to the hospital for evaluation of increased weakness and did have some mental status changes patient was hypothermic positive UA concerning for UTI also noticed to have a bilateral lower extremity redness concerning for cellulitis prompting this consultation. On today's evaluation that is 12/22/2023 patient did have normalization of her temperature with a temperature of 97.8 at noon patient is breathing comfortably on room air hemodynamically stable not requiring any pressor support patient remains to be pleasantly confused and not provide any history no vomiting or diarrhea has been reported by the nursing staff. Patient white count is 4.2, creatinine 1.05 Objective - Vital Signs Vital signs: Vital Signs Temp 97.8 F 12/22/23 12:00 Pulse 65 12/22/23 12:00 Resp 24 12/22/23 12:00 BP 131/75 12/22/23 12:00 Pulse Ox 96 12/22/23 12:00 FiO2 30 12/21/23 00:00 Intake & Output 12/21/23 12/22/23 12/22/23 18:59 06:59 18:59 Intake Total 900 950 375 Output Total 585 785 260 Balance 315 165 115 Weight 105.9 kg 105.9 kg Intake: IV 900 950 75 Sodium Chloride 0.9% 1, 900 900 75 000 ml @ 75 mls/hr IV . [id number] ROXY Rx#:[id number] cefTRIAXone 2 gm In 50 Sodium Chloride 0.9% 50 ml @ 100 mls/hr IVPB Q24H ROXY Rx#:[id number] Intake, IV Titration 300 Amount Dextrose 5%-0.45% NaCl 1, 300 000 ml @ 75 mls/hr IV . [id number] ROXY Rx#:[id number] Output: Urine 585 785 260 Other: Voiding Method Indwelling Catheter Indwelling Catheter Indwelling Catheter - Exam GENERAL DESCRIPTION: An elderly female lying in bed in no distress RESPIRATORY SYSTEM: Unlabored breathing , decreased breath sounds at bases HEART: S1 S2 regular rate and rhythm , ABDOMEN: Soft , no tenderness EXTREMITIES: Bilateral extremity with some swelling and minimal redness - Labs CBC & Chem 7: 12/24/23 04:03 12/24/23 04:03 Labs: Abnormal Lab Results - Last 24 Hours (Table) 12/21/23 12/22/23 12/22/23 Range/Units 14:50 00:01 00:32 RBC (3.80-5.40) m/uL Hgb (11.4-16.0) gm/dL Hct (34.0-46.0) % RDW (11.5-15.5) % Plt Count (150-450) k/uL Chloride (98-107) mmol/L Carbon Dioxide (22-30) mmol/L BUN (7-17) mg/dL Creatinine (0.52-1.04) mg/dL POC Glucose (mg/dL) 65 L 64 L 128 H (70-110) mg/dL C-Reactive Protein (<1.0) mg/dL 12/22/23 12/22/23 12/22/23 Range/Units 05:31 06:38 06:38 RBC 3.00 L (3.80-5.40) m/uL Hgb 9.1 L (11.4-16.0) gm/dL Hct 28.5 L (34.0-46.0) % RDW 17.6 H (11.5-15.5) % Plt Count 97 L (150-450) k/uL Chloride 119 H (98-107) mmol/L Carbon Dioxide 19 L (22-30) mmol/L BUN 24 H (7-17) mg/dL Creatinine 1.05 H (0.52-1.04) mg/dL POC Glucose (mg/dL) 65 L (70-110) mg/dL C-Reactive Protein 1.9 H (<1.0) mg/dL Microbiology - Last 24 Hours (Table) 12/21/23 12:40 Gram Stain - Preliminary Eye - Right Wound Culture - Preliminary 12/18/23 03:40 Blood Culture - Preliminary Blood 12/18/23 03:25 Blood Culture - Preliminary Blood Assessment and Plan (1) Bilateral lower leg cellulitis Current Visit: Yes Status: Acute Code(s): L03.116 - CELLULITIS OF LEFT LOWER LIMB; L03.115 - CELLULITIS OF RIGHT LOWER LIMB SNOMED Code(s): 870203201 Plan: 1patient presented to hospital generalized weakness and this patient noticed to have elevated white count also hypothermia temperature subsequent normalized source could be UTI versus bilateral lower extremity cellulitis with diffuse swelling redness likely streptococcal disease 2patient to continue with cefazolin 2 g every 8 hours and monitor clinical course closely Dictation was produced using [employer] dictation software. please excuse any grammatical, word or spelling errors. Time with Patient: Less than 30
--- NOTE | 2023-12-24 14:46 | P.PN ---
Subjective Progress Note Date: 12/23/23 Principal diagnosis: Reason for follow-up is bilateral lower extremity cellulitis Patient is a 78-year-old female with a past medical history significant for atrial fibrillation osteoarthritis patient was brought to the hospital for evaluation of increased weakness and did have some mental status changes patient was hypothermic positive UA concerning for UTI also noticed to have a bilateral lower extremity redness concerning for cellulitis prompting this consultation. On today's evaluation that is 12/23/2023 patient remains to be afebrile patient is breathing comfortably room air patient remains to be hemodynamic stable not requiring pressor support no vomiting diarrhea no changes reported by nursing staff patient did not provide any history. Patient white count is 2.6 creatinine 0.91 culture negative so far Objective - Vital Signs Vital signs: Vital Signs Temp 97.6 F 12/23/23 14:00 Pulse 53 L 12/23/23 16:00 Resp 8 L 12/23/23 16:00 BP 113/45 12/23/23 16:00 Pulse Ox 97 12/23/23 16:00 FiO2 30 12/21/23 00:00 Intake & Output 12/22/23 12/23/23 12/23/23 18:59 06:59 18:59 Intake Total 375 1350 850 Output Total 260 680 485 Balance 115 670 365 Weight 105.9 kg 105.8 kg Intake: IV 75 Sodium Chloride 0.9% 1, 75 000 ml @ 75 mls/hr IV . [id number] ROXY Rx#:[id number] Intake, IV Titration 300 1350 850 Amount Dextrose 5%-0.45% NaCl 1, 300 1350 750 000 ml @ 75 mls/hr IV . [id number] ROXY Rx#:[id number] ceFAZolin 2 gm In Sodium 100 Chloride 0.9% 50 ml @ 100 mls/hr IVPB Q8H ROXY Rx#: [id number] Output: Urine 260 680 485 Other: Voiding Method Indwelling Catheter Indwelling Catheter Indwelling Catheter - Exam GENERAL DESCRIPTION: An elderly female lying in bed in no distress RESPIRATORY SYSTEM: Unlabored breathing , decreased breath sounds at bases HEART: S1 S2 regular rate and rhythm , ABDOMEN: Soft , no tenderness EXTREMITIES: Bilateral extremity with some swelling and minimal redness - Labs CBC & Chem 7: 12/24/23 04:03 12/24/23 04:03 Labs: Abnormal Lab Results - Last 24 Hours (Table) 12/22/23 12/23/23 12/23/23 Range/Units 20:08 03:21 06:01 WBC 2.6 L (3.8-10.6) k/uL RBC 2.97 L (3.80-5.40) m/uL Hgb 8.8 L (11.4-16.0) gm/dL Hct 28.1 L (34.0-46.0) % RDW 17.7 H (11.5-15.5) % Plt Count 103 L (150-450) k/uL Lymphocytes # (Manual) 0.60 L (1.0-4.8) k/uL Chloride (98-107) mmol/L Carbon Dioxide (22-30) mmol/L BUN (7-17) mg/dL Glucose (74-99) mg/dL POC Glucose (mg/dL) 125 H 126 H (70-110) mg/dL Total Protein (6.3-8.2) g/dL Albumin (3.5-5.0) g/dL 12/23/23 12/23/23 Range/Units 06:01 11:50 WBC (3.8-10.6) k/uL RBC (3.80-5.40) m/uL Hgb (11.4-16.0) gm/dL Hct (34.0-46.0) % RDW (11.5-15.5) % Plt Count (150-450) k/uL Lymphocytes # (Manual) (1.0-4.8) k/uL Chloride 118 H (98-107) mmol/L Carbon Dioxide 17 L (22-30) mmol/L BUN 18 H (7-17) mg/dL Glucose 123 H (74-99) mg/dL POC Glucose (mg/dL) 128 H (70-110) mg/dL Total Protein 5.9 L (6.3-8.2) g/dL Albumin 2.7 L (3.5-5.0) g/dL Microbiology - Last 24 Hours (Table) 12/21/23 12:40 Anaerobic Culture - Preliminary Eye - Right 12/18/23 03:40 Blood Culture - Final Blood 12/18/23 03:25 Blood Culture - Final Blood 12/21/23 12:40 Gram Stain - Final Eye - Right Wound Culture - Final Assessment and Plan (1) Bilateral lower leg cellulitis Current Visit: Yes Status: Acute Code(s): L03.116 - CELLULITIS OF LEFT LOWER LIMB; L03.115 - CELLULITIS OF RIGHT LOWER LIMB SNOMED Code(s): 743777789 Plan: 1patient presented to hospital generalized weakness and this patient noticed to have elevated white count also hypothermia temperature subsequent normalized source could be UTI versus bilateral lower extremity cellulitis with diffuse swelling redness likely streptococcal disease 2patient temperature has normalized, no leukocytosis, patient to continue with cefazolin 2 g every 8 hours and monitor clinical course closely Dictation was produced using [employer] dictation software. please excuse any grammatical, word or spelling errors. Time with Patient: Less than 30
--- NOTE | 2023-12-24 14:47 | P.PN ---
Subjective Progress Note Date: 12/24/23 Principal diagnosis: Reason for follow-up is bilateral lower extremity cellulitis Patient is a 78-year-old female with a past medical history significant for atrial fibrillation osteoarthritis patient was brought to the hospital for evaluation of increased weakness and did have some mental status changes patient was hypothermic positive UA concerning for UTI also noticed to have a bilateral lower extremity redness concerning for cellulitis prompting this consultation. On today's evaluation that is 12/24/2023, patient has been afebrile, patient is breathing comfortably and is currently on room air, patient is more awake and alert today and answers question appropriately denies any chest pain or cough no nausea vomiting no abdominal pain no diarrhea has been reported denies pain to the lower extremity. Patient white count is 2.7 creatinine 0.95 culture has been negative Objective - Vital Signs Vital signs: Vital Signs Temp 97.7 F 12/24/23 12:00 Pulse 59 L 12/24/23 12:00 Resp 19 12/24/23 12:00 BP 141/60 12/24/23 12:00 Pulse Ox 97 12/24/23 12:00 FiO2 30 12/21/23 00:00 Intake & Output 12/23/23 12/24/23 12/24/23 18:59 06:59 18:59 Intake Total 850 1000 525 Output Total 485 250 325 Balance 365 750 200 Weight 108 kg Intake: IV 525 Dextrose 5%-0.45% NaCl 1, 525 000 ml @ 75 mls/hr IV . [id number] ROXY Rx#:[id number] Intake, IV Titration 850 1000 Amount Dextrose 5%-0.45% NaCl 1, 750 900 000 ml @ 75 mls/hr IV . [id number] ROXY Rx#:[id number] ceFAZolin 2 gm In Sodium 100 100 Chloride 0.9% 50 ml @ 100 mls/hr IVPB Q8H ROXY Rx#: [id number] Output: Urine 485 250 325 Other: Voiding Method Indwelling Catheter Indwelling Catheter Indwelling Catheter - Exam GENERAL DESCRIPTION: An elderly female lying in bed in no distress RESPIRATORY SYSTEM: Unlabored breathing , decreased breath sounds at bases HEART: S1 S2 regular rate and rhythm , ABDOMEN: Soft , no tenderness EXTREMITIES: Bilateral extremity with some swelling and minimal redness - Labs CBC & Chem 7: 12/24/23 04:03 12/24/23 04:03 Labs: Abnormal Lab Results - Last 24 Hours (Table) 12/23/23 12/24/23 12/24/23 Range/Units 20:58 04:03 04:03 WBC 2.7 L (3.8-10.6) k/uL RBC 2.83 L (3.80-5.40) m/uL Hgb 8.4 L (11.4-16.0) gm/dL Hct 27.0 L (34.0-46.0) % RDW 17.4 H (11.5-15.5) % Plt Count 107 L (150-450) k/uL Lymphocytes # 0.8 L (1.0-4.8) k/uL Chloride 119 H (98-107) mmol/L Carbon Dioxide 17 L (22-30) mmol/L Glucose 111 H (74-99) mg/dL POC Glucose (mg/dL) 121 H (70-110) mg/dL Total Protein 5.4 L (6.3-8.2) g/dL Albumin 2.5 L (3.5-5.0) g/dL TSH (0.465-4.680) mIU/L 12/24/23 12/24/23 Range/Units 04:08 08:54 WBC (3.8-10.6) k/uL RBC (3.80-5.40) m/uL Hgb (11.4-16.0) gm/dL Hct (34.0-46.0) % RDW (11.5-15.5) % Plt Count (150-450) k/uL Lymphocytes # (1.0-4.8) k/uL Chloride (98-107) mmol/L Carbon Dioxide (22-30) mmol/L Glucose (74-99) mg/dL POC Glucose (mg/dL) 126 H (70-110) mg/dL Total Protein (6.3-8.2) g/dL Albumin (3.5-5.0) g/dL TSH 4.940 H (0.465-4.680) mIU/L Microbiology - Last 24 Hours (Table) 12/21/23 12:40 Anaerobic Culture - Preliminary Eye - Right 12/18/23 03:40 Blood Culture - Final Blood 12/18/23 03:25 Blood Culture - Final Blood 12/21/23 12:40 Gram Stain - Final Eye - Right Wound Culture - Final Assessment and Plan (1) Bilateral lower leg cellulitis Current Visit: Yes Status: Acute Code(s): L03.116 - CELLULITIS OF LEFT LOWER LIMB; L03.115 - CELLULITIS OF RIGHT LOWER LIMB SNOMED Code(s): 894692390 Plan: 1patient presented to hospital generalized weakness and this patient noticed to have elevated white count also hypothermia temperature subsequent normalized source could be UTI versus bilateral lower extremity cellulitis with diffuse s welling redness likely streptococcal disease 2patient temperature remains to be normalized and the patient also has shown Some clinical improvement nursing staff has been advised to apply Yordan wrap to the leg after marked area of redness and continue with cefazolin and see clinic response Dictation was produced using [employer] dictation software. please excuse any grammatical, word or spelling errors.
[2023-12-24 15:11] LABS: T4, Free (Free Thyroxine) 1.24 ng/dL (0.78-2.19)
[2023-12-24] MEDS: FUROSEMIDE 10 MG/ML 2 ML VIAL IV ONE (15:34)
--- NOTE | 2023-12-24 15:51 | CT ---
EXAMINATION TYPE: CT brain wo con DATE OF EXAM: 12/24/2023 COMPARISON: 12/20/2023 INDICATION: Follow up on stroke DLP: 1138.4 mGycm, Automated exposure control for dose reduction was used. CONTRAST: None CT of the brain is performed utilizing 3 mm thick sections through the posterior fossa and 3 mm thick sections through the remaining calvarium. Study is performed within 24 hours of arrival to the hosp [facility]. No abnormal hyperdensity is present to suggest an acute intracranial hemorrhage. No mass lesion is evident. No acute infarcts are evident. There is stable hypodensity within the left periventricular white wisam er appears unchanged from comparison. Ventricles and sulci are appropriate for the patient age. Paranasal sinuses and mastoid air cells within the [id number] are clear. IMPRESSION: 1. No acute intracranial process. Chronic appearing white matter ischemic type changes in the left periventricular white matter. Follow-up MRI can be performed as clinically indicated.
[2023-12-24 16:10] LABS: Glucose,Whole Blood 103 mg/dL (70-110)
[2023-12-24 16:24] LABS: Protein, Total 5.7 g/dL (6.2-8.2)
[2023-12-24 16:37] LABS: Hepatitis A Antibody IgM Nonreactive (Nonreactive); Hepatitis B Core IgM Nonreactive (Nonreactive); Hepatitis B Surface Antigen Nonreactive (Nonreactive); Hepatitis C IgG Antibody Nonreactive (Nonreactive)
[2023-12-24 18:55] LABS: Glucose,Whole Blood 119 mg/dL (70-110)
[2023-12-24] MEDS: levETIRAcetam 500 MG TAB PO SCH (20:41)
[2023-12-24 21:09] LABS: HIV 2 AB Non-Reactive (Non-Reactive); HIV AB P24 Non-Reactive (Non-Reactive); HIV P24 AG Non-Reactive (Non-Reactive)
--- NOTE | 2023-12-24 21:48 | PN ---
PROGRESS NOTE DATE OF SERVICE: 12/24/2023 SUBJECTIVE: This is a 78-year-old woman, who was admitted with multiple medical problems including UTI, also had bilateral leg cellulitis. The patient is also delirious. The patient has change in mental status. Multiple consultants are following the patient closely. The chest x-ray which was done today showed some increased bronchovascular markings. PAST MEDICAL HISTORY: Reviewed. REVIEW OF SYSTEMS: Could not be taken. CURRENT MEDICATIONS: Reviewed. PHYSICAL EXAMINATION: VITAL SIGNS: Pulse is 58, blood pressure respirations 19. CHEST: Few scattered rhonchi. ABDOMEN: Soft. NERVOUS SYSTEM: Diffusely weak. LABORATORY DATA: WBC 2.2, hemoglobin 8.4, and TSH is 4.940, at an upper limit of normal. ASSESSMENT: 1. Acute UTI on presentation. 2. Bilateral leg cellulitis. 3. Change in mental status, acute delirium. 4. Possible fluid overload. 5. History of hypopyon surgery. 6. Acute renal failure. 7. Weakness and gait dysfunction. 8. Paroxysmal atrial fibrillation. 9. Mild pancytopenia of undetermined etiology. 10.Bilateral lower extremity chronic venous statis ulcer. 11.Hyperlipidemia. 12.Multiple complex medical issues. 13.Full code with no re-intubation. RECOMMENDATIONS: Recommended to continue current management, continue symptomatic treatment. I would recommend a single dose of Lasix and monitor creatinine closely, otherwise closely follow with multiple consultants. There is no evidence of any infection currently, however, we will continue to monitor. See orders for details. MMODL / IJN: [id number] / MTDD
[2023-12-24 22:50] LABS: % Iron Saturation 17.48 (12.00-45.00); Iron 50 UG/DL (50-170); Total Iron Binding Capacity 286 UG/DL (228-460)
[2023-12-24 22:58] LABS: Glucose,Whole Blood 105 mg/dL (70-110)
[2023-12-25 04:33] LABS: Glucose,Whole Blood 96 mg/dL (70-110)
[2023-12-25 07:01] LABS: Glucose,Whole Blood 90 mg/dL (70-110)
--- NOTE | 2023-12-25 07:38 | XR ---
EXAMINATION TYPE: XR chest 1V portable DATE OF EXAM: 12/25/2023 COMPARISON: 12/24/2023 INDICATION: Previous abnormal chest, CHF TECHNIQUE: Single frontal view of the chest is obtained. FINDINGS: The heart size is normal. The pulmonary vasculature is normal. The lungs are clear. Previous infiltrate has resolved. IMPRESSION: 1. No acute pulmonary process.
[2023-12-25 11:05] LABS: Glucose,Whole Blood 102 mg/dL (70-110)
--- NOTE | 2023-12-25 12:07 | P.PN ---
Subjective Progress Note Date: 12/24/23 Patient was seen for a follow-up. Patient is doing much better. Patient's daughter was also present, who believes patient is back to baseline. She is following all commands, asking and answering all appropriately. Objective - Vital Signs Vital signs: Vital Signs Temp 97.5 F L 12/24/23 17:32 Pulse 65 12/24/23 17:32 Resp 16 12/24/23 17:32 BP 151/65 12/24/23 17:32 Pulse Ox 96 12/24/23 17:32 FiO2 30 12/21/23 00:00 Intake & Output 12/23/23 12/24/23 12/24/23 18:59 06:59 18:59 Intake Total 850 1000 765 Output Total 945 253 8391 Balance 365 750 -510 Weight 108 kg Intake: IV 525 Dextrose 5%-0.45% NaCl 1, 525 000 ml @ 75 mls/hr IV . [id number] ROXY Rx#:[id number] Intake, IV Titration 850 1000 Amount Dextrose 5%-0.45% NaCl 1, 750 900 000 ml @ 75 mls/hr IV . [id number] ROXY Rx#:[id number] ceFAZolin 2 gm In Sodium 100 100 Chloride 0.9% 50 ml @ 100 mls/hr IVPB Q8H ROXY Rx#: [id number] Oral 240 Output: Urine 277 796 3635 Other: Voiding Method Indwelling Catheter Indwelling Catheter Indwelling Catheter - Exam Patient is much more alert and awake. She is following all directions. Patient denies headache. Patient's face is symmetric and tongue protrudes midline. Her right eye is injected. Left pupil is round and reacting. Visual cabrera are somewhat difficult to assess. Patient did not cooperate. On muscle tone testing there is no pronator drift. The strength is normal in the arms and legs except left shoulder which is weak. Biceps triceps and analysis analyst are normal. Sensory to touch is equal with no neglect. - Labs CBC & Chem 7: 12/24/23 04:03 12/24/23 04:03 Labs: Abnormal Lab Results - Last 24 Hours (Table) 12/23/23 12/24/23 12/24/23 Range/Units 20:58 04:03 04:03 WBC 2.7 L (3.8-10.6) k/uL RBC 2.83 L (3.80-5.40) m/uL Hgb 8.4 L (11.4-16.0) gm/dL Hct 27.0 L (34.0-46.0) % RDW 17.4 H (11.5-15.5) % Plt Count 107 L (150-450) k/uL Lymphocytes # 0.8 L (1.0-4.8) k/uL Chloride 119 H (98-107) mmol/L Carbon Dioxide 17 L (22-30) mmol/L Glucose 111 H (74-99) mg/dL POC Glucose (mg/dL) 121 H (70-110) mg/dL Total Protein 5.4 L (6.3-8.2) g/dL Total Protein (PEP) (6.2-8.2) g/dL Albumin 2.5 L (3.5-5.0) g/dL TSH (0.465-4.680) mIU/L 12/24/23 12/24/23 12/24/23 Range/Units 04:08 08:54 08:54 WBC (3.8-10.6) k/uL RBC (3.80-5.40) m/uL Hgb (11.4-16.0) gm/dL Hct (34.0-46.0) % RDW (11.5-15.5) % Plt Count (150-450) k/uL Lymphocytes # (1.0-4.8) k/uL Chloride (98-107) mmol/L Carbon Dioxide (22-30) mmol/L Glucose (74-99) mg/dL POC Glucose (mg/dL) 126 H (70-110) mg/dL Total Protein (6.3-8.2) g/dL Total Protein (PEP) 5.7 L (6.2-8.2) g/dL Albumin (3.5-5.0) g/dL TSH 4.940 H (0.465-4.680) mIU/L Assessment and Plan Assessment: * Acute episode of altered mental status with unresponsiveness, unclear cause. No large vessel occlusion noted on the CTA. CT head showed no acute process. CVA less likely. Examination nonfocal. * Acute encephalopathy, unclear cause, probably toxic metabolic encephalopathy. Reasons multifactorial as mentioned below. * Rule out subclinical seizure, although unlikely, with negative EEG findings. * Acute UTI * Probable bilateral lower extremity cellulitis * Right eye infection. * Atrial fibrillation, on Eliquis * Osteoarthritis * History of lymphedema Plan: Patient's mentation has remarkably improved. Her examination is nonfocal. Appears patient probably has metabolic encephalopathy. Patient has cellulitis and probable UTI, on cefazolin 2 g every 8 hours. Appreciate ID input. Repeat CT head performed today showed no acute intracranial process. Chronic appearing white matter ischemic type changes, in the left periventricular white matter. Follow-up MRI can be performed as clinically indicated. I personally reviewed CT head agree with the findings. Resume Eliquis when patient able to take p.o. medications. Patient currently on aspirin 300 mg rectally. 2-D echo revealed normal left ventricular function with EF 50 to 55%. Severely increased left ventricular diastolic volume. Severely increased left ventricular systolic volume. Global hypokinesis. Moderately increased left atrial volume. Mild MR. CTA head and neck showed: Mild atherosclerotic disease without evidence of hemodynamically significant stenosis or dissection. Patent CTA head. No intracranial large vessel occlusion, significant stenosis or aneurysm. Fasting a.m. lipid panel cholesterol 100, LDL 39.6, HDL 40, triglycerides 101 on 07/17/2023. Continue Lipitor 40 mg daily. Hemoglobin A1c 5.6 TSH 3.38, normal. B12 759, folate 13.8 on 07/17/2023. No need to repeat. EEG was abnormal due to background slowing of moderate degree, suggestive of encephalopathy. Also there was superimposed bitemporal slowing, L > R, suggestive of focal cortical neuronal dysfunction. No epileptiform activity was seen. Patient empirically placed on Keppra 1000 mg IV push x 1 dose, followed by Keppra 750 mg twice daily. We will consider switching Keppra to oral medication and decrease dose in the morning, when able to take orally. Plan to rapidly taper off. If remains stable, we will stop Keppra in the morning. Optimize control of blood pressure. Neurochecks every 4 hours. Telemetry monitoring rule out any arrhythmia PT, OT, speech therapy, when patient able to cooperate DVT prophylaxis: Patient to be continued on Eliquis. Discussed with patient's nurse in detail.
[2023-12-25 13:00] LABS: Anisocytosis Slight; Basophils % (A) 0 %; Eosinophils # (A) 0.1 k/uL (0-0.7); Eosinophils % (A) 1 %; HCT 29.5 % (34.0-46.0); HGB 9.2 gm/dL (11.4-16.0); Hypochromasia Slight; Lymphocytes % (A) 21 %; MCHC 31.3 g/dL (31.0-37.0); MCV 95.7 fL (80.0-100.0); Macrocytosis Slight; Mean Platelet Volume 9.2; Monocytes # (A) 0.3 k/uL (0-1.0); Monocytes % (A) 5 %; Neutrophils # (A) 3.4 k/uL (1.3-7.7); Neutrophils % (A) 71 %; Platelet Count 148 k/uL (150-450); RBC 3.09 m/uL (3.80-5.40); RDW 17.6 % (11.5-15.5); WBC 4.8 k/uL (3.8-10.6)
--- NOTE | 2023-12-25 13:02 | P.PN ---
Subjective HISTORY OF PRESENT ILLNESS: The patient is a pleasant 78-year-old female patient with a past medical history significant for hypertension and paroxysmal atrial tachycardia and overweight was admitted to the hospital with change in mental status and we consulted to see the patient because of the bradycardia. The patient was brought with a change in mental status felt initially to be related to an acute stroke where the stroke code was called and the patient underwent CT scan of the brain which did not show any acute abnormalities. Subsequently the diagnosis of stroke was eliminated completely. We consulted to see the patient because of the bradycardia. The patient was noted to have an infection in the eye requiring antibiotic at this point and requiring intraocular injection of antibiotic. The patient was noted to be bradycardic with nocturnal bradycardia and heart rate in the 40s and sometimes bradycardia during the day with heart rate in the 50s. Apparently she is not very symptomatic with the bradycardia with no symptoms of dizziness or lightheadedness and no presyncope or syncope and no symptoms of any chest pain or chest discomfort or shortness of breath. The patient somewhat is a poor historian. No coronary artery disease or congestive heart failure. She is known to have paroxysmal atrial fibrillation and has been maintaining on oral anticoagulation with Eliquis. Beside that she is on Toprol-XL at 25 mg p.o. daily. She underwent further investigation including an EKG showing sinus mechanism with no significant ST or T wave abnormalities but first-degree AV block and echocardiogram revealed normal biventricular dimensions and systolic function with no significant valvular abnormalities. The blood work revealed anemia with a hemoglobin of 8.4. The examination reveals regular rhythm with a distant heart sounds and systolic murmur at the right upper sternal border with clear breathing sounds bilaterally and mild bilateral lower extremities edema noted 12/25/2023 Patient examined this morning at bedside. Patient denies chest pain or pressure. She denies shortness of breath. She remains anticoagulation with Eliquis. Telemetry reveals sinus mechanism with heart in the 60s. She denies dizziness or lightheadedness. Vital signs are stable. PHYSICAL EXAM: VITAL SIGNS: Reviewed. GENERAL: Well-developed in no acute distress. NECK: Supple. No JVD or thyromegaly LUNGS: Respirations even and unlabored. Lungs essentially clear to auscultation bilaterally. HEART: Regular rate and rhythm. S1 and S2 heard. EXTREMITIES: Normal range of motion. No clubbing or cyanosis. Peripheral pulses intact. Bilateral lower extremity edema noted with Yordan wrap's. ASSESSMENT: Altered mental status Acute endophthalmitis Paroxysmal atrial fibrillation, currently maintaining sinus mechanism Sinus bradycardia Bilateral lower extremity cellulitis Chronic anemia PLAN: Continue current cardiac medications Continue telemetry monitoring Patient is currently stable from a cardiac standpoint with no further inpatient recommendations We will sign off. Please reconsult if needed. Nurse practitioner note has been reviewed by physician. Signing provider agrees with the documented findings, assessment, and plan of care documented by [employer] DEVELOPER as a scribe. Objective - Vital Signs Vital signs: Vital Signs Temp 97.7 F 12/25/23 11:38 Pulse 69 12/25/23 11:38 Resp 16 12/25/23 11:38 BP 118/70 12/25/23 11:38 Pulse Ox 99 12/25/23 11:38 FiO2 30 12/21/23 00:00 Intake & Output 12/24/23 12/25/23 12/25/23 18:59 06:59 18:59 Intake Total 1225 240 Output Total 1275 1650 425 Balance -50 -1650 -185 Intake: IV 525 Dextrose 5%-0.45% NaCl 1, 525 000 ml @ 75 mls/hr IV . [id number] [facility] Rx#:[id number] Oral 700 240 Output: Urine 1275 1650 425 Other: Voiding Method Indwelling Catheter Indwelling Catheter Indwelling Catheter - Labs CBC & Chem 7: 12/24/23 04:03 12/24/23 04:03 Labs: Abnormal Lab Results - Last 24 Hours (Table) 12/24/23 12/24/23 12/24/23 Range/Units 04:03 08:54 18:54 POC Glucose (mg/dL) 119 H (70-110) mg/dL Total Protein (PEP) 5.7 L (6.2-8.2) g/dL Vitamin B12 998.0 H (200.0-944.0) pg/mL Microbiology - Last 24 Hours (Table) 12/21/23 12:40 Anaerobic Culture - Final Eye - Right 12/23/23 13:50 Blood Culture - Preliminary Blood
[2023-12-25 13:15] LABS: African American GFR (CKD) 59 (>60 ml/min/1.73 sqM); Anion Gap 7 mmol/L; Blood Urea Nitrogen 23 mg/dL (7-17); Calcium 8.8 mg/dL (8.4-10.2); Carbon Dioxide 19 mmol/L (22-30); Chloride 115 mmol/L (98-107); Glucose 97 mg/dL (74-99); Non-African American GFR(CKD) 51 (>60 ml/min/1.73 sqM); Sodium 141 mmol/L (137-145)
--- NOTE | 2023-12-25 13:39 | PN ---
PROGRESS NOTE DATE OF SERVICE: 12/25/2023 SUBJECTIVE: This 78-year-old woman was admitted with acute UTI, also had bilateral leg cellulitis. The patient also had some change in mental status. No fever, no cough. OBJECTIVE: VITAL SIGNS: Pulse is 69, blood pressure 118/70, respirations 16. HEENT: Conjunctivae normal. CARDIOVASCULAR: S1, S2. RESPIRATIONS: Diminished at the basis. ABDOMEN: Soft. NERVOUS SYSTEM: Nonfocal. LABORATORY DATA: Reviewed, hemoglobin 8.4. Chest x-ray reviewed. CAT scan of the brain reviewed. ASSESSMENT: 1. Acute UTI presentation. 2. Bilateral leg cellulitis. 3. Change in mental status, acute delirium. 4. Possible fluid overload, improved. 5. History of hypopyon surgery. 6. Acute renal failure. 7. Weakness and gait dysfunction. 8. Paroxysmal atrial fibrillation. 9. Mild pancytopenia of undetermined etiology. 10.Bilateral lower extremity chronic venous stasis ulcer. 11.Hyperlipidemia. 12.Multiple complex medical issues. 13.Full code. RECOMMENDATIONS: Recommended to continue current management, continue symptomatic treatment. Otherwise at this time, I would recommend PT OT evaluation and possible ECF rehab. Continue rest of medications. Repeat labs will be ordered. Closely follow with multiple consultants. Further recommendations to follow. MMODL / IJN: [id number] /
[2023-12-25 14:04] LABS: Free Lambda Lt Chain Qnt, Seru 4.47 mg/dL (0.57-2.63)
[2023-12-25 14:20] VITALS: BMI 42.1
[2023-12-25 14:59] LABS: Glucose,Whole Blood 118 mg/dL (70-110)
--- NOTE | 2023-12-25 15:18 | P.PN ---
Subjective Progress Note Date: 12/25/23 On 12/20/2023, the patient got transferred to the intensive care unit. The patient became acutely unresponsive. She did have a left facial droop and she was nonverbal, barely responsive to any painful stimulation. Respiratory rate was also low and the patient was having shallow low rate respiration. Suspect an acute stroke. A code stroke was called and the patient underwent a CAT scan of the head that showed no acute abnormalities. No evidence of any bleed or stroke identified. Also, his CTA of the brain was also done that showed patent intracranial arteries. Patient was already on anticoagulation with Eliquis. Neuro interventional specialist was contacted and the patient was not found to be candidate for thrombolytics. Based on that, the patient got transferred to the intensive care unit. Currently she is on a BiPAP ST mode at a pressure of 12/5 with a backup rate of 12. FiO2 is being adjusted to maintain saturation above 90%. Blood gases are to follow. The patient is not responsive to any deep painful stimulation at this point and she is unresponsive. No seizure activity has been noted. Cardiac rhythm is sinus and the patient has history of paroxysmal atrial fibrillation maintained on anticoagulation. The patient was hospitalized earlier because of generalized weakness and inability to eat or drink. She was having generalized weakness. Suspected to have underlying urine tract infection. The patient is known to have previous episodes of UTI. UA was abnormal consistent with infection. Nevertheless, urine cultures have been negative. Since admission, the patient was treated with IV Rocephin. She was also receiving IV fluids normal saline at rate of 75 cc an hour. She was awake and responsive up to this morning. Blood work from today showed a sodium level of 142, potassium level of 5.6, bicarb is 19 with a BUN of 31 with a creatinine of 1.1. CBC is still pending from today. Most recent CBC showed a WBC count of 13 with a hemoglobin 9.5. She is on no pressors for now. She is afebrile. The viral screen has been negative. Neurology has been consulted. On a separate note, the patient has undergone a recent right eye surgery for glaucoma. Patient was reeval today on 12/21/2023, patient is doing well. Her mental status is improving, patient was admitted with altered mental status, and at 1 point she was being considered for intubation because there was a concern about protecting her airways. However while in the process of discussing CODE STATUS with family, and the family requested not to be intubated, patient did not get intubated and her mental status has been gradually improving. Today she seems to be slow but arousable, follows simple instructions. Does not seem to be in any distress, workup is still pending. She is on 2 L nasal cannula and O2 sats is 95% CBC is relatively normal except for hemoglobin of 9. Basic metabolic profile is normal BUN is 30 creatinine 1.08, chest x-ray showed no acute pulmonary disease, patient was seen by neurology, felt that the patient had acute onset of unresponsiveness with encephalopathy, rule out CVA. Workup is nondiagnostic so far reevaluated today on 12/22/2023, patient remains in the ICU, she is presently an overflow. Patient was seen by ophthalmology yesterday, and she had intraocular injection of antibiotics for her endophthalmitis. Overnight patient had 2 episodes of low blood sugar requiring dextrose, IV push. Patient remains on room air, doing well, asymptomatic, a bit confused but she is still oriented to place. WBC count is 4.2 hemoglobin is 9.1 basic metabolic profile is normal renal profile showed a BUN of 24 creatinine 1.05. His x-ray today showed bord rajendra cardiomegaly and mild interstitial prominence. No evidence of pneumonia no evidence of pleural effusions Patient was reevaluated today/, remains in the ICU, her mental status continues to wax and wane. Today she seems to be slower, nonetheless she is arousable, she is oriented only x 1/place, she knew where she was. Otherwise could not get much information from the patient. Patient is quite lethargic. Labs are a bit abnormal with WBC count of 2.6 hemoglobin 8.8 platelets are 10 3000 basic metabolic profile is normal bicarb is 17 renal profile is normal Patient was today on 12/24/2023, remains in the ICU as an overflow, patient is on room air, does not seem to be in any distress, she is still on antibiotics still on 0.9 normal saline at 75 cc/h. Mentation barlow this is the best I have seen her today, patient is awake alert oriented, does not seem to be in any distress, and she is in a very pleasant mood. WBC count is 2.7 hemoglobin 8.4 basic metabolic profile is normal bicarb is 17 BUN is 16 creatinine 0.95 TSH is a bit on the high side 4.9 The patient is seen today 12/25/2023 in follow-up on the selective care unit. She is currently sitting up in a chair at the bedside. Awake and alert in no acute distress. She is maintaining good O2 saturations in the high 90s on room air. She is afebrile. Hemodynamically stable. Blood cultures revealed no growth. Right thigh cultures revealed no growth. Follow-up blood culture revealing no growth. White count 4.8. Hemoglobin 9.2. Platelets 148. Sodium 141. Potassium 4.0. Bicarb 19. BUN 23. Creatinine 1.08. Glucose 97. She is continued on cefazolin. Continued with eyedrops. Anticoagulated with Eliquis. Objective - Vital Signs Vital signs: Vital Signs Temp 97.7 F 12/25/23 11:38 Pulse 69 12/25/23 11:38 Resp 16 12/25/23 11:38 BP 118/70 12/25/23 11:38 Pulse Ox 99 12/25/23 11:38 FiO2 30 12/21/23 00:00 Intake & Output 12/24/23 12/25/23 12/25/23 18:59 06:59 18:59 Intake Total 1225 358 Output Total 1275 1650 425 Balance -50 -1650 -67 Weight 108 kg Intake: IV 525 Dextrose 5%-0.45% NaCl 1, 525 000 ml @ 75 mls/hr IV . [id number] [facility] Rx#:[id number] Oral 700 358 Output: Urine 1275 1650 425 Other: Voiding Method Indwelling Catheter Indwelling Catheter Indwelling Catheter - Exam General appearance: Reveals a pleasant 78-year-old female, awake, alert and oriented x 3. Sitting up in a chair. On room air. Head exam: Atraumatic, normocephalic. Eye exam: PERRLA, EOMI, nonicteric, no neck masses no JVD. ENT exam: Moist mucous membranes, throat is clear. Neck exam: Supple, no neck masses no JVD no stridor. Respiratory clear bilaterally diminished breath sounds at the bases no rhonchi no wheezes Cardiovascular Exam: Distant S1-S2, no S3 gallop, no murmur GI/Abdominal exam: Soft nontender no megaly no rebound no guarding Extremities exam: Clubbing edema or cyanosis Neurological exam: Alert and oriented x 3, no gross focal neurologic deficit Psychiatric exam: Normal mood affect, normal mental status Skin exam: Present: No rashes - Labs CBC & Chem 7: 12/25/23 12:18 12/25/23 12:18 Labs: Abnormal Lab Results - Last 24 Hours (Table) 12/24/23 12/24/23 12/24/23 Range/Units 04:03 08:54 18:54 RBC (3.80-5.40) m/uL Hgb (11.4-16.0) gm/dL Hct (34.0-46.0) % RDW (11.5-15.5) % Plt Count (150-450) k/uL Chloride (98-107) mmol/L Carbon Dioxide (22-30) mmol/L BUN (7-17) mg/dL POC Glucose (mg/dL) 119 H (70-110) mg/dL Total Protein (PEP) 5.7 L (6.2-8.2) g/dL Vitamin B12 998.0 H (200.0-944.0) pg/mL Free [place] LC, Quant 9.00 H (0.33-1.94) mg/dL Free Lambda LC, Quant 4.47 H (0.57-2.63) mg/dL 12/25/23 12/25/23 12/25/23 Range/Units 12:18 12:18 14:57 RBC 3.09 L (3.80-5.40) m/uL Hgb 9.2 L (11.4-16.0) gm/dL Hct 29.5 L (34.0-46.0) % RDW 17.6 H (11.5-15.5) % Plt Count 148 L (150-450) k/uL Chloride 115 H (98-107) mmol/L Carbon Dioxide 19 L (22-30) mmol/L BUN 23 H (7-17) mg/dL POC Glucose (mg/dL) 118 H (70-110) mg/dL Total Protein (PEP) (6.2-8.2) g/dL Vitamin B12 (200.0-944.0) pg/mL Free [place] LC, Quant (0.33-1.94) mg/dL Free Lambda LC, Quant (0.57-2.63) mg/dL Microbiology - Last 24 Hours (Table) 12/21/23 12:40 Anaerobic Culture - Final Eye - Right 12/23/23 13:50 Blood Culture - Preliminary Blood Assessment and Plan Assessment: Acute altered mental status, improving most likely secondary to acute metabolic encephalopathy, possible CVA, resolved patient seems to be back to normal Acute endophthalmitis requiring intraocular injections of antibiotics, given by ophthalmology. Possible sepsis with acute toxic metabolic encephalopathy Paroxysmal atrial fibrillation presently in sinus Recurrent urinary tract infections patient is receiving Rocephin empirically Obesity with BMI of 42.2 kg/m Benign essential hypertension Recent eye surgery for cataract involving the right eye, patient is being followed by ophthalmology, possible glaucoma Degenerative joint disease Plan: The patient was seen and evaluated Labs and medications reviewed Continued on antibiotics Anticoagulated with Eliquis Stable and on room air We will continue to follow Plan is for [facility] at discharge I have personally seen and examined the patient, performed the documentation and the assessment and plan as written. Number of minutes spent on the visit: 10.
--- NOTE | 2023-12-25 15:47 | P.PN ---
Subjective Progress Note Date: 12/25/23 Principal diagnosis: Reason for follow-up is bilateral lower extremity cellulitis Patient is a 78-year-old female with a past medical history significant for atrial fibrillation osteoarthritis patient was brought to the hospital for evaluation of increased weakness and did have some mental status changes patient was hypothermic positive UA concerning for UTI also noticed to have a bilateral lower extremity redness concerning for cellulitis prompting this consultation. On today's evaluation that is 12/25/2023,the patient has been moved out of the ICU patient is currently afebrile and is breathing comfortably on room air denies any chest pain shortness of breath cough abdominal pain or pain to the lower extremity. Patient white count is 4.8, creatinine 1.04, blood culture has been negative Objective - Vital Signs Vital signs: Vital Signs Temp 97.9 F 12/25/23 05:37 Pulse 56 L 12/25/23 03:05 Resp 14 12/25/23 03:05 BP 128/53 12/25/23 03:05 Pulse Ox 98 12/25/23 03:05 FiO2 30 12/21/23 00:00 Intake & Output 12/24/23 12/25/23 12/25/23 18:59 06:59 18:59 Intake Total 1225 Output Total 1275 1650 Balance -50 -1650 Intake: IV 525 Dextrose 5%-0.45% NaCl 1, 525 000 ml @ 75 mls/hr IV . [id number] [facility] Rx#:[id number] Oral 700 Output: Urine 1275 1650 Other: Voiding Method Indwelling Catheter Indwelling Catheter - Exam GENERAL DESCRIPTION: An elderly female lying in bed in no distress RESPIRATORY SYSTEM: Unlabored breathing , decreased breath sounds at bases HEART: S1 S2 regular rate and rhythm , ABDOMEN: Soft , no tenderness EXTREMITIES: Bilateral lower extremity currently wrapped in Yordan wrap - Labs CBC & Chem 7: 12/25/23 12:18 12/25/23 12:18 Labs: Abnormal Lab Results - Last 24 Hours (Table) 12/24/23 12/24/23 12/24/23 Range/Units 04:03 08:54 08:54 POC Glucose (mg/dL) (70-110) mg/dL Total Protein (PEP) 5.7 L (6.2-8.2) g/dL Vitamin B12 998.0 H (200.0-944.0) pg/mL TSH 4.940 H (0.465-4.680) mIU/L 12/24/23 Range/Units 18:54 POC Glucose (mg/dL) 119 H (70-110) mg/dL Total Protein (PEP) (6.2-8.2) g/dL Vitamin B12 (200.0-944.0) pg/mL TSH (0.465-4.680) mIU/L Microbiology - Last 24 Hours (Table) 12/23/23 13:50 Blood Culture - Preliminary Blood Assessment and Plan (1) Bilateral lower leg cellulitis Current Visit: Yes Status: Acute Code(s): L03.116 - CELLULITIS OF LEFT LOWER LIMB; L03.115 - CELLULITIS OF RIGHT LOWER LIMB SNOMED Code(s): 445204630 Plan: 1patient presented to hospital generalized weakness and this patient noticed to have elevated white count also hypothermia temperature subsequent normalized source could be UTI versus bilateral lower extremity cellulitis with diffuse swelling redness likely streptococcal disease 2patient to continue with apply Yordan wrap to keep the swelling down and continue with the cefazolin Dictation was produced using [employer] dictation software. please excuse any gr ammatical, word or spelling errors. Time with Patient: Less than 30
[2023-12-25 17:28] LABS: Albumin 2.53 g/dL (3.80-4.90); Gamma Globulin 1.28 g/dL (0.70-1.50)
[2023-12-25 19:38] LABS: Glucose,Whole Blood 96 mg/dL (70-110)
--- NOTE | 2023-12-25 20:48 | P.PN ---
Subjective Progress Note Date: 12/25/23 Patient was seen for a follow-up. Patient is doing much better. Patient is somnolent. Patient states everything is coming along well. Denies any headache. Denies any new symptoms. Objective - Vital Signs Vital signs: Vital Signs Temp 96.9 F L 12/25/23 19:59 Pulse 90 12/25/23 19:59 Resp 16 12/25/23 19:59 BP 138/63 12/25/23 19:59 Pulse Ox 96 12/25/23 19:59 FiO2 30 12/21/23 00:00 Intake & Output 12/25/23 12/25/23 12/26/23 06:59 18:59 06:59 Intake Total 358 Output Total 1650 1125 Balance -1650 -767 Weight 108 kg Intake: Oral 358 Output: Urine 1650 1125 Other: Voiding Method Indwelling Catheter Indwelling Catheter - Exam Patient is much more alert and awake. She is following all directions. Patient denies headache. Patient states it is December 2019 and that she is in [facility] imported on [place]. Speech and language functions are normal. Patient's face is symmetric and tongue protrudes midline. Right pupil is surgical. Left pupil is round and reacting. Visual cabrera are somewhat difficult to assess. Patient did not cooperate. On muscle tone testing there is no pronator drift. The strength is normal in the arms and legs except left shoulder which is weak. Biceps triceps and business analyst ecommerce are normal. Sensory to touch is equal with no neglect. - Labs CBC & Chem 7: 12/25/23 12:18 12/25/23 12:18 Labs: Abnormal Lab Results - Last 24 Hours (Table) 12/24/23 12/24/23 12/25/23 Range/Units 04:03 08:54 12:18 RBC 3.09 L (3.80-5.40) m/uL Hgb 9.2 L (11.4-16.0) gm/dL Hct 29.5 L (34.0-46.0) % RDW 17.6 H (11.5-15.5) % Plt Count 148 L (150-450) k/uL Chloride (98-107) mmol/L Carbon Dioxide (22-30) mmol/L BUN (7-17) mg/dL POC Glucose (mg/dL) (70-110) mg/dL Albumin (PEP) 2.53 L (3.80-4.90) g/dL Vitamin B12 998.0 H (200.0-944.0) pg/mL Free [employer] LC, Quant 9.00 H (0.33-1.94) mg/dL Free Lambda LC, Quant 4.47 H (0.57-2.63) mg/dL 12/25/23 12/25/23 Range/Units 12:18 14:57 RBC (3.80-5.40) m/uL Hgb (11.4-16.0) gm/dL Hct (34.0-46.0) % RDW (11.5-15.5) % Plt Count (150-450) k/uL Chloride 115 H (98-107) mmol/L Carbon Dioxide 19 L (22-30) mmol/L BUN 23 H (7-17) mg/dL POC Glucose (mg/dL) 118 H (70-110) mg/dL Albumin (PEP) (3.80-4.90) g/dL Vitamin B12 (200.0-944.0) pg/mL Free [employer] LC, Quant (0.33-1.94) mg/dL Free Lambda LC, Quant (0.57-2.63) mg/dL Microbiology - Last 24 Hours (Table) 12/21/23 12:40 Anaerobic Culture - Final Eye - Right 12/23/23 13:50 Blood Culture - Preliminary Blood Assessment and Plan Assessment: * Acute episode of altered mental status with unresponsiveness, unclear cause. No large vessel occlusion noted on the CTA. CT head showed no acute process. CVA less likely. Examination nonfocal. * Acute encephalopathy, unclear cause, probably toxic metabolic encephalopathy. Reasons multifactorial as mentioned below. * No evidence of seizure. * Acute UTI * Probable bilateral lower extremity cellulitis * Right eye infection. * Atrial fibrillation, on Eliquis * Osteoarthritis * History of lymphedema Plan: Patient's mentation has remarkably improved. Her examination is nonfocal. Appears patient probably has metabolic encephalopathy. Patient has cellulitis and probable UTI, on cefazolin 2 g every 8 hours. Appreciate ID input. Repeat CT head 12/24/2023 showed no acute intracranial process. Chronic serjio earing white matter ischemic type changes, in the left periventricular white matter. Follow-up MRI can be performed as clinically indicated. I personally reviewed CT head agree with the findings. Patient resumed on Eliquis 5 mg twice daily. No need for aspirin because of anemia and no significant atherosclerotic disease. 2-D echo revealed normal left ventricular function with EF 50 to 55%. Severely increased left ventricular diastolic volume. Severely increased left ventricular systolic volume. Global hypokinesis. Moderately increased left atrial volume. Mild MR. CTA head and neck showed: Mild atherosclerotic disease without evidence of hemodynamically significant stenosis or dissection. Patent CTA head. No intracranial large vessel occlusion, significant stenosis or aneurysm. Fasting a.m. lipid panel cholesterol 100, LDL 39.6, HDL 40, triglycerides 101 on 07/17/2023. Continue Lipitor 40 mg daily. Hemoglobin A1c 5.6 TSH 3.38, normal. B12 759, folate 13.8 on 07/17/2023. No need to repeat. EEG was abnormal due to background slowing of moderate degree, suggestive of encephalopathy. Also there was superimposed bitemporal slowing, L > R, suggestive of focal cortical neuronal dysfunction. No epileptiform activity was seen. Patient empirically placed on Keppra 1000 mg IV push x 1 dose, followed by Keppra 750 mg twice daily. Keppra decreased to 500 mg twice daily yesterday. We will stop Keppra in the mo rning. Optimize control of blood pressure. Neurochecks every 4 hours. Telemetry monitoring rule out any arrhythmia PT, OT, speech therapy, when patient able to cooperate DVT prophylaxis: Patient to be continued on Eliquis. Dr. Shields covering neurology service over the weekend. Please call neurology if any concerns over the weekend.
[2023-12-25 23:30] LABS: Glucose,Whole Blood 117 mg/dL (70-110)
[2023-12-26 06:09] LABS: Glucose,Whole Blood 99 mg/dL (70-110)
[2023-12-26 07:43] LABS: ALT 7 U/L (4-34); AST 21 U/L (14-36); African American GFR (CKD) 57 (>60 ml/min/1.73 sqM); Albumin 2.5 g/dL (3.5-5.0); Alkaline Phosphatase 111 U/L (38-126); Anion Gap 4 mmol/L; Blood Urea Nitrogen 28 mg/dL (7-17); Calcium 8.5 mg/dL (8.4-10.2); Carbon Dioxide 20 mmol/L (22-30); Chloride 116 mmol/L (98-107); Glucose 82 mg/dL (74-99); Non-African American GFR(CKD) 49 (>60 ml/min/1.73 sqM); Potassium 4.6 mmol/L (3.5-5.1); Sodium 140 mmol/L (137-145); Total Bilirubin 0.2 mg/dL (0.2-1.3); Total Protein 5.6 g/dL (6.3-8.2)
[2023-12-26 08:03] LABS: Anisocytosis Slight; Basophils % (A) 0 %; Eosinophils # (A) 0.1 k/uL (0-0.7); Eosinophils % (A) 1 %; HCT 27.3 % (34.0-46.0); HGB 8.5 gm/dL (11.4-16.0); Hypochromasia Slight; Lymphocytes # (A) 1.1 k/uL (1.0-4.8); Lymphocytes % (A) 23 %; MCHC 31.2 g/dL (31.0-37.0); MCV 95.9 fL (80.0-100.0); Macrocytosis Slight; Mean Platelet Volume 9.8; Monocytes # (A) 0.3 k/uL (0-1.0); Monocytes % (A) 6 %; Neutrophils # (A) 3.1 k/uL (1.3-7.7); Neutrophils % (A) 68 %; Platelet Count 171 k/uL (150-450); RBC 2.84 m/uL (3.80-5.40); RDW 17.7 % (11.5-15.5); WBC 4.5 k/uL (3.8-10.6)
[2023-12-26 11:16] LABS: Glucose,Whole Blood 112 mg/dL (70-110)
--- NOTE | 2023-12-26 14:18 | PN ---
PROGRESS NOTE DATE OF SERVICE: 12/26/2023 SUBJECTIVE: This 78-year-old woman was admitted with UTI, also had bilateral leg cellulitis. The patient continues to be confused. No chest pain, no palpitation. OBJECTIVE: VITAL SIGNS: Pulse is 71, blood pressure 148/60, respirations 16. CHEST: Clear to auscultation cardiovascular. ABDOMEN: Soft. NERVOUS SYSTEM: Nonfocal. LABORATORY DATA: Hemoglobin 8.5. ASSESSMENT: 1. Acute UTI on presentation. 2. Bilateral leg cellulitis. 3. Change in mental status, acute delirium. 4. Possible fluid overload, improved. 5. History of hypopyon Surgery. 6. Acute renal failure. 7. Weakness, gait dysfunction, history of paroxysmal atrial ablation, history of multiple complex medical issues. 8. Mild pancytopenia of undetermined etiology. 9. Full code with instructions. Continue current management and repeat labs. Otherwise PT, OT evaluation, possible ECF rehab. Guarded prognosis because of the multiple complex medical issues and further recommendations to follow. The most recent chest x-ray on . MMODL / IJN: [id number] /
--- NOTE | 2023-12-26 14:24 | P.PN ---
Subjective Progress Note Date: 12/26/23 On 12/20/2023, the patient got transferred to the intensive care unit. The patient became acutely unresponsive. She did have a left facial droop and she was nonverbal, barely responsive to any painful stimulation. Respiratory rate was also low and the patient was having shallow low rate respiration. Suspect an acute stroke. A code stroke was called and the patient underwent a CAT scan of the head that showed no acute abnormalities. No evidence of any bleed or stroke identified. Also, his CTA of the brain was also done that showed patent intracranial arteries. Patient was already on anticoagulation with Eliquis. Neuro interventional specialist was contacted and the patient was not found to be candidate for thrombolytics. Based on that, the patient got transferred to the intensive care unit. Currently she is on a BiPAP ST mode at a pressure of 12/5 with a backup rate of 12. FiO2 is being adjusted to maintain saturation above 90%. Blood gases are to follow. The patient is not responsive to any deep painful stimulation at this point and she is unresponsive. No seizure activity has been noted. Cardiac rhythm is sinus and the patient has history of paroxysmal atrial fibrillation maintained on anticoagulation. The patient was hospitalized earlier because of generalized weakness and inability to eat or drink. She was having generalized weakness. Suspected to have underlying urine tract infection. The patient is known to have previous episodes of UTI. UA was abnormal consistent with infection. Nevertheless, urine cultures have been negative. Since admission, the patient was treated with IV Rocephin. She was also receiving IV fluids normal saline at rate of 75 cc an hour. She was awake and responsive up to this morning. Blood work from today showed a sodium level of 142, potassium level of 5.6, bicarb is 19 with a BUN of 31 with a creatinine of 1.1. CBC is still pending from today. Most recent CBC showed a WBC count of 13 with a hemoglobin 9.5. She is on no pressors for now. She is afebrile. The viral screen has been negative. Neurology has been consulted. On a separate note, the patient has undergone a recent right eye surgery for glaucoma. Patient was reeval today on 12/21/2023, patient is doing well. Her mental status is improving, patient was admitted with altered mental status, and at 1 point she was being considered for intubation because there was a concern about protecting her airways. However while in the process of discussing CODE STATUS with family, and the family requested not to be intubated, patient did not get intubated and her mental status has been gradually improving. Today she seems to be slow but arousable, follows simple instructions. Does not seem to be in any distress, workup is still pending. She is on 2 L nasal cannula and O2 sats is 95% CBC is relatively normal except for hemoglobin of 9. Basic metabolic profile is normal BUN is 30 creatinine 1.08, chest x-ray showed no acute pulmonary disease, patient was seen by neurology, felt that the patient had acute onset of unresponsiveness with encephalopathy, rule out CVA. Workup is nondiagnostic so far reevaluated today on 12/22/2023, patient remains in the ICU, she is presently an overflow. Patient was seen by ophthalmology yesterday, and she had intraocular injection of antibiotics for her endophthalmitis. Overnight patient had 2 episodes of low blood sugar requiring dextrose, IV push. Patient remains on room air, doing well, asymptomatic, a bit confused but she is still oriented to place. WBC count is 4.2 hemoglobin is 9.1 basic metabolic profile is normal renal profile showed a BUN of 24 creatinine 1.05. His x-ray today showed bord rajendra cardiomegaly and mild interstitial prominence. No evidence of pneumonia no evidence of pleural effusions Patient was reevaluated today/, remains in the ICU, her mental status continues to wax and wane. Today she seems to be slower, nonetheless she is arousable, she is oriented only x 1/place, she knew where she was. Otherwise could not get much information from the patient. Patient is quite lethargic. Labs are a bit abnormal with WBC count of 2.6 hemoglobin 8.8 platelets are 10 3000 basic metabolic profile is normal bicarb is 17 renal profile is normal Patient was today on 12/24/2023, remains in the ICU as an overflow, patient is on room air, does not seem to be in any distress, she is still on antibiotics still on 0.9 normal saline at 75 cc/h. Mentation barlow this is the best I have seen her today, patient is awake alert oriented, does not seem to be in any distress, and she is in a very pleasant mood. WBC count is 2.7 hemoglobin 8.4 basic metabolic profile is normal bicarb is 17 BUN is 16 creatinine 0.95 TSH is a bit on the high side 4.9 The patient is seen today 12/25/2023 in follow-up on the selective care unit. She is currently sitting up in a chair at the bedside. Awake and alert in no acute distress. She is maintaining good O2 saturations in the high 90s on room air. She is afebrile. Hemodynamically stable. Blood cultures revealed no growth. Right thigh cultures revealed no growth. Follow-up blood culture revealing no growth. White count 4.8. Hemoglobin 9.2. Platelets 148. Sodium 141. Potassium 4.0. Bicarb 19. BUN 23. Creatinine 1.08. Glucose 97. She is continued on cefazolin. Continued with eyedrops. Anticoagulated with Eliquis. The patient is seen today December 26, 2023 in the selective care unit. She is currently sitting up in bed. Awake and alert in no acute distress. She is maintaining good O2 saturation in the 90s on room air. She has D5 and half- normal saline at 75 MLS per hour. She denies any worsening shortness of breath, cough or congestion. White count 4.5. Hemoglobin 8.5. Platelets 171. Sodium 140. Potassium 4.6. Bicarb 20. BUN 28. Creatinine 1.08. Glucose 99. Remains on cefazolin. Anticoagulated with Eliquis. Eyedrops are continued. Objective - Vital Signs Vital signs: Vital Signs Temp 97.8 F 12/26/23 12:00 Pulse 71 12/26/23 12:00 Resp 16 12/26/23 12:00 BP 148/61 12/26/23 12:00 Pulse Ox 94 L 12/26/23 12:00 FiO2 30 12/21/23 00:00 Intake & Output 12/25/23 12/26/23 12/26/23 18:59 06:59 18:59 Intake Total 358 950 540 Output Total 1125 1200 Balance -767 950 -660 Weight 108 kg Intake: IV 600 Dextrose 5%-0.45% NaCl 1, 600 000 ml @ 75 mls/hr IV . [id number] ROXY Rx#:[id number] Intake, IV Titration 50 Amount Dextrose 5%-0.45% NaCl 1, 50 000 ml @ 75 mls/hr IV . [id number] ROXY Rx#:[id number] Oral 358 300 540 Output: Urine 1125 1200 Other: Voiding Method Indwelling Catheter Indwelling Catheter Indwelling Catheter - Exam General appearance: Reveals a 78-year-old female, awake, alert. On room air. Head exam: Atraumatic, normocephalic. Eye exam: PERRLA, EOMI, nonicteric, no neck masses no JVD. ENT exam: Moist mucous membranes, throat is clear. Neck exam: Supple, no neck masses no JVD no stridor. Respiratory clear bilaterally diminished breath sounds at the bases no rhonchi no wheezes Cardiovascular Exam: Distant S1-S2, no S3 gallop, no murmur GI/Abdominal exam: Soft nontender no megaly no rebound no guarding Extremities exam: Clubbing edema or cyanosis Neurological exam: Alert and oriented x 3, no gross focal neurologic deficit Psychiatric exam: Normal mood affect, normal mental status Skin exam: Present: No rashes - Labs CBC & Chem 7: 12/26/23 06:04 12/26/23 06:04 Labs: Abnormal Lab Results - Last 24 Hours (Table) 12/24/23 12/25/23 12/25/23 Range/Units 08:54 14:57 23:28 RBC (3.80-5.40) m/uL Hgb (11.4-16.0) gm/dL Hct (34.0-46.0) % RDW (11.5-15.5) % Chloride (98-107) mmol/L Carbon Dioxide (22-30) mmol/L BUN (7-17) mg/dL Creatinine (0.52-1.04) mg/dL POC Glucose (mg/dL) 118 H 117 H (70-110) mg/dL Total Protein (6.3-8.2) g/dL Albumin (3.5-5.0) g/dL Albumin (PEP) 2.53 L (3.80-4.90) g/dL 12/26/23 12/26/23 12/26/23 Range/Units 06:04 06:04 11:14 RBC 2.84 L (3.80-5.40) m/uL Hgb 8.5 L (11.4-16.0) gm/dL Hct 27.3 L (34.0-46.0) % RDW 17.7 H (11.5-15.5) % Chloride 116 H (98-107) mmol/L Carbon Dioxide 20 L (22-30) mmol/L BUN 28 H (7-17) mg/dL Creatinine 1.08 H (0.52-1.04) mg/dL POC Glucose (mg/dL) 112 H (70-110) mg/dL Total Protein 5.6 L (6.3-8.2) g/dL Albumin 2.5 L (3.5-5.0) g/dL Albumin (PEP) (3.80-4.90) g/dL Microbiology - Last 24 Hours (Table) 12/23/23 13:50 Blood Culture - Preliminary Blood 12/21/23 12:40 Anaerobic Culture - Final Eye - Right Assessment and Plan Assessment: Acute altered mental status, most likely secondary to acute metabolic encephalopathy, possible CVA, resolved patient seems to be back to normal Acute endophthalmitis requiring intraocular injections of antibiotics, given by ophthalmology. Possible sepsis with acute toxic metabolic encephalopathy Paroxysmal atrial fibrillation presently in sinus Recurrent urinary tract infections patient is receiving Rocephin empirically Obesity with BMI of 42.2 kg/m Benign essential hypertension Recent eye surgery for cataract involving the right eye, patient is being followed by ophthalmology, possible glaucoma Degenerative joint disease Plan: The patient was seen and evaluated Labs and medications reviewed Stable and on room air Plan is for [facility] at discharge I have personally seen and examined the patient, performed the documentation and the assessment and plan as written. Number of minutes spent on the visit: 10.
[2023-12-26 17:05] LABS: Glucose,Whole Blood 111 mg/dL (70-110)
[2023-12-26 20:16] LABS: Glucose,Whole Blood 129 mg/dL (70-110)
--- NOTE | 2023-12-26 21:09 | P.PN ---
Subjective Progress Note Date: 12/26/23 Principal diagnosis: Reason for follow-up is bilateral lower extremity cellulitis Patient is a 78-year-old female with a past medical history significant for atrial fibrillation osteoarthritis patient was brought to the hospital for evaluation of increased weakness and did have some mental status changes patient was hypothermic positive UA concerning for UTI also noticed to have a bilateral lower extremity redness concerning for cellulitis prompting this consultation. On today's evaluation that is 12/26/2023,the patient remains to be afebrile, patient is on room air not requiring supplemental oxygen and denies any shortness of breath no chest pain or cough.Patient denies having any nausea or vomiting, no abdominal pain and no diarrhea has been reported, he denies pain to the lower extremity. Patient white count is 4.5, creatinine is 1.08 blood culture has been negative Objective - Vital Signs Vital signs: Vital Signs Temp 98.2 F 12/26/23 08:00 Pulse 75 12/26/23 08:00 Resp 16 12/26/23 08:00 BP 131/63 12/26/23 08:00 Pulse Ox 94 L 12/26/23 08:00 FiO2 30 12/21/23 00:00 Intake & Output 12/25/23 12/26/23 12/26/23 18:59 06:59 18:59 Intake Total 358 950 Output Total 1125 1200 Balance -767 950 -1200 Weight 108 kg Intake: IV 600 Dextrose 5%-0.45% NaCl 1, 600 000 ml @ 75 mls/hr IV . [id number] ROXY Rx#:[id number] Intake, IV Titration 50 Amount Dextrose 5%-0.45% NaCl 1, 50 000 ml @ 75 mls/hr IV . [id number] ROXY Rx#:[id number] Oral 358 300 Output: Urine 1125 1200 Other: Voiding Method Indwelling Catheter Indwelling Catheter Indwelling Catheter - Exam GENERAL DESCRIPTION: An elderly female lying in bed in no distress RESPIRATORY SYSTEM: Unlabored breathing , decreased breath sounds at bases HEART: S1 S2 regular rate and rhythm , ABDOMEN: Soft , no tenderness EXTREMITIES: Bilateral lower extremity currently wrapped in Yordan wrap Exam completed with the help of [employer] - Labs CBC & Chem 7: 12/26/23 06:04 12/26/23 06:04 Labs: Abnormal Lab Results - Last 24 Hours (Table) 12/24/23 12/25/23 12/25/23 Range/Units 08:54 12:18 12:18 RBC 3.09 L (3.80-5.40) m/uL Hgb 9.2 L (11.4-16.0) gm/dL Hct 29.5 L (34.0-46.0) % RDW 17.6 H (11.5-15.5) % Plt Count 148 L (150-450) k/uL Chloride 115 H (98-107) mmol/L Carbon Dioxide 19 L (22-30) mmol/L BUN 23 H (7-17) mg/dL Creatinine (0.52-1.04) mg/dL POC Glucose (mg/dL) (70-110) mg/dL Total Protein (6.3-8.2) g/dL Albumin (3.5-5.0) g/dL Albumin (PEP) 2.53 L (3.80-4.90) g/dL Free Streetman LC, Quant 9.00 H (0.33-1.94) mg/dL Free Lambda LC, Quant 4.47 H (0.57-2.63) mg/dL 12/25/23 12/25/23 12/26/23 Range/Units 14:57 23:28 06:04 RBC 2.84 L (3.80-5.40) m/uL Hgb 8.5 L (11.4-16.0) gm/dL Hct 27.3 L (34.0-46.0) % RDW 17.7 H (11.5-15.5) % Plt Count (150-450) k/uL Chloride (98-107) mmol/L Carbon Dioxide (22-30) mmol/L BUN (7-17) mg/dL Creatinine (0.52-1.04) mg/dL POC Glucose (mg/dL) 118 H 117 H (70-110) mg/dL Total Protein (6.3-8.2) g/dL Albumin (3.5-5.0) g/dL Albumin (PEP) (3.80-4.90) g/dL Free Streetman LC, Quant (0.33-1.94) mg/dL Free Lambda LC, Quant (0.57-2.63) mg/dL 12/26/23 12/26/23 Range/Units 06:04 11:14 RBC (3.80-5.40) m/uL Hgb (11.4-16.0) gm/dL Hct (34.0-46.0) % RDW (11.5-15.5) % Plt Count (150-450) k/uL Chloride 116 H (98-107) mmol/L Carbon Dioxide 20 L (22-30) mmol/L BUN 28 H (7-17) mg/dL Creatinine 1.08 H (0.52-1.04) mg/dL POC Glucose (mg/dL) 112 H (70-110) mg/dL Total Protein 5.6 L (6.3-8.2) g/dL Albumin 2.5 L (3.5-5.0) g/dL Albumin (PEP) (3.80-4.90) g/dL Free Streetman LC, Quant (0.33-1.94) mg/dL Free Lambda LC, Quant (0.57-2.63) mg/dL Microbiology - Last 24 Hours (Table) 12/23/23 13:50 Blood Culture - Preliminary Blood 12/21/23 12:40 Anaerobic Culture - Final Eye - Right Assessment and Plan (1) Bilateral lower leg cellulitis Current Visit: Yes Status: Acute Code(s): L03.116 - CELLULITIS OF LEFT LOWER LIMB; L03.115 - CELLULITIS OF RIGHT LOWER LIMB SNOMED Code(s): 162717642 Plan: 1patient presented to hospital generalized weakness and this patient noticed to have elevated white count also hypothermia temperature subsequent normalized source could be UTI versus bilateral lower extremity cellulitis with diffuse swelling redness likely streptococcal disease 2patient is afebrile, the patient white count has been normal plan is to continue cefazolin along with apply Yordan wrap to keep the swelling down and monitor clinical course closely Dictation was produced using [employer] dictation software. please excuse any grammatical, word or spelling errors. Time with Patient: Less than 30
[2023-12-27 06:09] LABS: Glucose,Whole Blood 97 mg/dL (70-110)
[2023-12-27 11:49] LABS: Glucose,Whole Blood 105 mg/dL (70-110)
--- NOTE | 2023-12-27 14:26 | P.PN ---
Subjective Progress Note Date: 12/27/23 On 12/20/2023, the patient got transferred to the intensive care unit. The patient became acutely unresponsive. She did have a left facial droop and she was nonverbal, barely responsive to any painful stimulation. Respiratory rate was also low and the patient was having shallow low rate respiration. Suspect an acute stroke. A code stroke was called and the patient underwent a CAT scan of the head that showed no acute abnormalities. No evidence of any bleed or stroke identified. Also, his CTA of the brain was also done that showed patent intracranial arteries. Patient was already on anticoagulation with Eliquis. Neuro interventional specialist was contacted and the patient was not found to be candidate for thrombolytics. Based on that, the patient got transferred to the intensive care unit. Currently she is on a BiPAP ST mode at a pressure of 12/5 with a backup rate of 12. FiO2 is being adjusted to maintain saturation above 90%. Blood gases are to follow. The patient is not responsive to any deep painful stimulation at this point and she is unresponsive. No seizure activity has been noted. Cardiac rhythm is sinus and the patient has history of paroxysmal atrial fibrillation maintained on anticoagulation. The patient was hospitalized earlier because of generalized weakness and inability to eat or drink. She was having generalized weakness. Suspected to have underlying urine tract infection. The patient is known to have previous episodes of UTI. UA was abnormal consistent with infection. Nevertheless, urine cultures have been negative. Since admission, the patient was treated with IV Rocephin. She was also receiving IV fluids normal saline at rate of 75 cc an hour. She was awake and responsive up to this morning. Blood work from today showed a sodium level of 142, potassium level of 5.6, bicarb is 19 with a BUN of 31 with a creatinine of 1.1. CBC is still pending from today. Most recent CBC showed a WBC count of 13 with a hemoglobin 9.5. She is on no pressors for now. She is afebrile. The viral screen has been negative. Neurology has been consulted. On a separate note, the patient has undergone a recent right eye surgery for glaucoma. Patient was reeval today on 12/21/2023, patient is doing well. Her mental status is improving, patient was admitted with altered mental status, and at 1 point she was being considered for intubation because there was a concern about protecting her airways. However while in the process of discussing CODE STATUS with family, and the family requested not to be intubated, patient did not get intubated and her mental status has been gradually improving. Today she seems to be slow but arousable, follows simple instructions. Does not seem to be in any distress, workup is still pending. She is on 2 L nasal cannula and O2 sats is 95% CBC is relatively normal except for hemoglobin of 9. Basic metabolic profile is normal BUN is 30 creatinine 1.08, chest x-ray showed no acute pulmonary disease, patient was seen by neurology, felt that the patient had acute onset of unresponsiveness with encephalopathy, rule out CVA. Workup is nondiagnostic so far reevaluated today on 12/22/2023, patient remains in the ICU, she is presently an overflow. Patient was seen by ophthalmology yesterday, and she had intraocular injection of antibiotics for her endophthalmitis. Overnight patient had 2 episodes of low blood sugar requiring dextrose, IV push. Patient remains on room air, doing well, asymptomatic, a bit confused but she is still oriented to place. WBC count is 4.2 hemoglobin is 9.1 basic metabolic profile is normal renal profile showed a BUN of 24 creatinine 1.05. His x-ray today showed bord rajendra cardiomegaly and mild interstitial prominence. No evidence of pneumonia no evidence of pleural effusions Patient was reevaluated today/, remains in the ICU, her mental status continues to wax and wane. Today she seems to be slower, nonetheless she is arousable, she is oriented only x 1/place, she knew where she was. Otherwise could not get much information from the patient. Patient is quite lethargic. Labs are a bit abnormal with WBC count of 2.6 hemoglobin 8.8 platelets are 10 3000 basic metabolic profile is normal bicarb is 17 renal profile is normal Patient was today on 12/24/2023, remains in the ICU as an overflow, patient is on room air, does not seem to be in any distress, she is still on antibiotics still on 0.9 normal saline at 75 cc/h. Mentation barlow this is the best I have seen her today, patient is awake alert oriented, does not seem to be in any distress, and she is in a very pleasant mood. WBC count is 2.7 hemoglobin 8.4 basic metabolic profile is normal bicarb is 17 BUN is 16 creatinine 0.95 TSH is a bit on the high side 4.9 The patient is seen today 12/25/2023 in follow-up on the selective care unit. She is currently sitting up in a chair at the bedside. Awake and alert in no acute distress. She is maintaining good O2 saturations in the high 90s on room air. She is afebrile. Hemodynamically stable. Blood cultures revealed no growth. Right thigh cultures revealed no growth. Follow-up blood culture revealing no growth. White count 4.8. Hemoglobin 9.2. Platelets 148. Sodium 141. Potassium 4.0. Bicarb 19. BUN 23. Creatinine 1.08. Glucose 97. She is continued on cefazolin. Continued with eyedrops. Anticoagulated with Eliquis. The patient is seen today December 26, 2023 in the selective care unit. She is currently sitting up in bed. Awake and alert in no acute distress. She is maintaining good O2 saturation in the 90s on room air. She has D5 and half- normal saline at 75 MLS per hour. She denies any worsening shortness of breath, cough or congestion. White count 4.5. Hemoglobin 8.5. Platelets 171. Sodium 140. Potassium 4.6. Bicarb 20. BUN 28. Creatinine 1.08. Glucose 99. Remains on cefazolin. Anticoagulated with Eliquis. Eyedrops are continued. The patient is seen today December 27, 2023 in follow-up on the regular medical floor. She is awake and alert in no acute distress. Denies any worsening s hortness of breath, cough or congestion. Blood cultures revealed no growth. Right eye cultures revealed no growth. Follow-up blood cultures revealed no growth. Blood glucose 105. She remains on cefazolin. Continued on D5 and half-normal saline at 75 MLS per hour. Eliquis for anticoagulation. Objective - Vital Signs Vital signs: Vital Signs Temp 97.8 F 12/27/23 08:00 Pulse 61 12/27/23 12:00 Resp 16 12/27/23 12:00 BP 134/55 12/27/23 12:00 Pulse Ox 97 12/27/23 12:00 FiO2 30 12/21/23 00:00 Intake & Output 12/26/23 12/27/23 12/27/23 18:59 06:59 18:59 Intake Total 540 220 Output Total 1200 1000 600 Balance -660 -1000 -380 Intake: Oral 540 220 Output: Urine 1200 1000 600 Other: Voiding Method Indwelling Catheter Indwelling Catheter Indwelling Catheter - Exam General appearance: Reveals a pleasant awake 78-year-old female, no acute distress. On room air. Head exam: Atraumatic, normocephalic. Eye exam: PERRLA, EOMI, nonicteric, no neck masses no JVD. ENT exam: Moist mucous membranes, throat is clear. Neck exam: Supple, no neck masses no JVD no stridor. Respiratory clear bilaterally diminished breath sounds at the bases no rhonchi no wheezes Cardiovascular Exam: Distant S1-S2, no S3 gallop, no murmur GI/Abdominal exam: Soft nontender no megaly no rebound no guarding Extremities exam: Clubbing edema or cyanosis Neurological exam: Alert and oriented x 3, no gross focal neurologic deficit Psychiatric exam: Normal mood affect, normal mental status Skin exam: Present: No rashes - Labs CBC & Chem 7: 12/26/23 06:04 12/26/23 06:04 Labs: Abnormal Lab Results - Last 24 Hours (Table) 12/26/23 12/26/23 Range/Units 17:04 20:15 POC Glucose (mg/dL) 111 H 129 H (70-110) mg/dL Microbiology - Last 24 Hours (Table) 12/23/23 13:50 Blood Culture - Preliminary Blood Assessment and Plan Assessment: Acute altered mental status, most likely secondary to acute metabolic encephalopathy, possible CVA, resolved patient seems to be back to normal Acute endophthalmitis requiring intraocular injections of antibiotics, given by ophthalmology. Possible sepsis with acute toxic metabolic encephalopathy Paroxysmal atrial fibrillation presently in sinus Recurrent urinary tract infections patient is receiving Rocephin empirically Obesity with BMI of 42.2 kg/m Benign essential hypertension Recent eye surgery for cataract involving the right eye, patient is being followed by ophthalmology, possible glaucoma Degenerative joint disease Plan: The patient was seen and evaluated Labs and medications reviewed Stable and on room air Anticoagulated with Eliquis Remains on cefazolin Continued on eyedrops Plan is for [facility] at discharge I have personally seen and examined the patient, performed the documentation and the assessment and plan as written. Number of minutes spent on the visit: 10.
[2023-12-27 16:30] LABS: Glucose,Whole Blood 138 mg/dL (70-110)
[2023-12-27 21:17] LABS: Glucose,Whole Blood 124 mg/dL (70-110)
--- NOTE | 2023-12-27 23:09 | PN ---
PROGRESS NOTE DATE OF SERVICE: 12/27/2023 SUBJECTIVE: This is a 78-year-old woman, who was admitted with UTI on presentation, also had bilateral leg cellulitis and change in mental status also. The patient also had some fluid overload, which improved. The patient is transferred out of ICU. OBJECTIVE: VITAL SIGNS: Pulse is 61, blood pressure 130/85, respirations 16. CHEST: A few scattered rhonchi and crackles. ABDOMEN: Soft. NERVOUS SYSTEM: No focal deficits. LABORATORY DATA: Accu-Cheks noted. Hemoglobin 8.5. ASSESSMENT: 1. Acute urinary tract infection on presentation. 2. Bilateral leg cellulitis. 3. Change in mental status, acute delirium. 4. Possible fluid overload, improved. 5. History hypopyon surgery. 6. Acute renal failure. 7. Weakness, gait dysfunction. 8. History of paroxysmal atrial fibrillation. 9. Mild pancytopenia of undetermined etiology. 10.Full code with instructions. 11.Multiple complex medical issues. RECOMMENDATIONS: Recommend to continue current management. Continue symptomatic treatment. PT, OT evaluation, possible ECF rehab. Repeat labs to be ordered. Continue to monitor. Further recommendations to follow. The patient is making significant improvement at this time. MMODL / IJN: [id number] /
[2023-12-28 06:52] LABS: Glucose,Whole Blood 96 mg/dL (70-110)
[2023-12-28 08:38] LABS: Basophils # (A) 0.01 X 10*3/uL (0.00-0.10); Basophils % (A) 0.2 %; Eosinophils # (A) 0.07 X 10*3/uL (0.04-0.35); Eosinophils % (A) 1.7 %; HGB 7.9 g/dL (12.0-15.0); Lymphocytes # (A) 1.23 X 10*3/uL (0.90-5.00); Lymphocytes % (A) 29.6 %; MCH 29.3 pg (27.0-32.0); MCHC 31.6 g/dL (32.0-37.0); MCV 92.6 FL (80.0-97.0); Mean Platelet Volume 11.2 FL (9.5-12.2); Monocytes # (A) 0.35 X 10*3/uL (0.20-1.00); Monocytes % (A) 8.4 %; NRBC Per 100 WBC 0 X 10*3/uL (0.00-0.01); Neutrophils # (A) 2.49 X 10*3/uL (1.80-7.70); Neutrophils % (A) 59.9 %; Platelet Count 214 X 10*3/uL (140-440); RDW 18.4 % (11.5-14.5); WBC 4.16 X 10*3/uL (4.50-10.00)
[2023-12-28 08:52] LABS: Blood Urea Nitrogen 35.3 mg/dL (9.0-27.0); Calcium 8.7 mg/dL (8.7-10.3); Carbon Dioxide 23.1 mmol/L (21.6-31.8); Chloride 110 mmol/L (96-109); Glucose 98 mg/dL (70-110); Potassium 5.1 mmol/L (3.5-5.5); Sodium 140 mmol/L (135-145)
[2023-12-28 11:16] LABS: Glucose,Whole Blood 123 mg/dL (70-110)
--- NOTE | 2023-12-28 14:31 | P.PN ---
Subjective Progress Note Date: 12/28/23 On 12/20/2023, the patient got transferred to the intensive care unit. The patient became acutely unresponsive. She did have a left facial droop and she was nonverbal, barely responsive to any painful stimulation. Respiratory rate was also low and the patient was having shallow low rate respiration. Suspect an acute stroke. A code stroke was called and the patient underwent a CAT scan of the head that showed no acute abnormalities. No evidence of any bleed or stroke identified. Also, his CTA of the brain was also done that showed patent intracranial arteries. Patient was already on anticoagulation with Eliquis. Neuro interventional specialist was contacted and the patient was not found to be candidate for thrombolytics. Based on that, the patient got transferred to the intensive care unit. Currently she is on a BiPAP ST mode at a pressure of 12/5 with a backup rate of 12. FiO2 is being adjusted to maintain saturation above 90%. Blood gases are to follow. The patient is not responsive to any deep painful stimulation at this point and she is unresponsive. No seizure activity has been noted. Cardiac rhythm is sinus and the patient has history of paroxysmal atrial fibrillation maintained on anticoagulation. The patient was hospitalized earlier because of generalized weakness and inability to eat or drink. She was having generalized weakness. Suspected to have underlying urine tract infection. The patient is known to have previous episodes of UTI. UA was abnormal consistent with infection. Nevertheless, urine cultures have been negative. Since admission, the patient was treated with IV Rocephin. She was also receiving IV fluids normal saline at rate of 75 cc an hour. She was awake and responsive up to this morning. Blood work from today showed a sodium level of 142, potassium level of 5.6, bicarb is 19 with a BUN of 31 with a creatinine of 1.1. CBC is still pending from today. Most recent CBC showed a WBC count of 13 with a hemoglobin 9.5. She is on no pressors for now. She is afebrile. The viral screen has been negative. Neurology has been consulted. On a separate note, the patient has undergone a recent right eye surgery for glaucoma. Patient was reeval today on 12/21/2023, patient is doing well. Her mental status is improving, patient was admitted with altered mental status, and at 1 point she was being considered for intubation because there was a concern about protecting her airways. However while in the process of discussing CODE STATUS with family, and the family requested not to be intubated, patient did not get intubated and her mental status has been gradually improving. Today she seems to be slow but arousable, follows simple instructions. Does not seem to be in any distress, workup is still pending. She is on 2 L nasal cannula and O2 sats is 95% CBC is relatively normal except for hemoglobin of 9. Basic metabolic profile is normal BUN is 30 creatinine 1.08, chest x-ray showed no acute pulmonary disease, patient was seen by neurology, felt that the patient had acute onset of unresponsiveness with encephalopathy, rule out CVA. Workup is nondiagnostic so far reevaluated today on 12/22/2023, patient remains in the ICU, she is presently an overflow. Patient was seen by ophthalmology yesterday, and she had intraocular injection of antibiotics for her endophthalmitis. Overnight patient had 2 episodes of low blood sugar requiring dextrose, IV push. Patient remains on room air, doing well, asymptomatic, a bit confused but she is still oriented to place. WBC count is 4.2 hemoglobin is 9.1 basic metabolic profile is normal renal profile showed a BUN of 24 creatinine 1.05. His x-ray today showed bord rajendra cardiomegaly and mild interstitial prominence. No evidence of pneumonia no evidence of pleural effusions Patient was reevaluated today/, remains in the ICU, her mental status continues to wax and wane. Today she seems to be slower, nonetheless she is arousable, she is oriented only x 1/place, she knew where she was. Otherwise could not get much information from the patient. Patient is quite lethargic. Labs are a bit abnormal with WBC count of 2.6 hemoglobin 8.8 platelets are 10 3000 basic metabolic profile is normal bicarb is 17 renal profile is normal Patient was today on 12/24/2023, remains in the ICU as an overflow, patient is on room air, does not seem to be in any distress, she is still on antibiotics still on 0.9 normal saline at 75 cc/h. Mentation barlow this is the best I have seen her today, patient is awake alert oriented, does not seem to be in any distress, and she is in a very pleasant mood. WBC count is 2.7 hemoglobin 8.4 basic metabolic profile is normal bicarb is 17 BUN is 16 creatinine 0.95 TSH is a bit on the high side 4.9 The patient is seen today 12/25/2023 in follow-up on the selective care unit. She is currently sitting up in a chair at the bedside. Awake and alert in no acute distress. She is maintaining good O2 saturations in the high 90s on room air. She is afebrile. Hemodynamically stable. Blood cultures revealed no growth. Right thigh cultures revealed no growth. Follow-up blood culture revealing no growth. White count 4.8. Hemoglobin 9.2. Platelets 148. Sodium 141. Potassium 4.0. Bicarb 19. BUN 23. Creatinine 1.08. Glucose 97. She is continued on cefazolin. Continued with eyedrops. Anticoagulated with Eliquis. The patient is seen today December 26, 2023 in the selective care unit. She is currently sitting up in bed. Awake and alert in no acute distress. She is maintaining good O2 saturation in the 90s on room air. She has D5 and half- normal saline at 75 MLS per hour. She denies any worsening shortness of breath, cough or congestion. White count 4.5. Hemoglobin 8.5. Platelets 171. Sodium 140. Potassium 4.6. Bicarb 20. BUN 28. Creatinine 1.08. Glucose 99. Remains on cefazolin. Anticoagulated with Eliquis. Eyedrops are continued. The patient is seen today December 27, 2023 in follow-up on the regular medical floor. She is awake and alert in no acute distress. Denies any worsening s hortness of breath, cough or congestion. Blood cultures revealed no growth. Right eye cultures revealed no growth. Follow-up blood cultures revealed no growth. Blood glucose 105. She remains on cefazolin. Continued on D5 and half-normal saline at 75 MLS per hour. Eliquis for anticoagulation. The patient is seen today December 28, 2023 in follow-up on the regular medical floor. She is currently resting comfortably in bed. Awake and alert in no acute distress. She is maintaining good O2 saturations in the 90s on room air. She has D5.45 at 75 MLS per hour. Anticoagulated with Eliquis. Remains on cefazolin. White count 4.1. Hemoglobin 7.9. Platelets 214. Sodium 140. Potassium 5.1. Bicarb 23. BUN 35. Creatinine 1.0. Glucose 98. Objective - Vital Signs Vital signs: Vital Signs Temp 97.9 F 12/28/23 08:00 Pulse 63 12/28/23 08:00 Resp 13 12/28/23 02:40 BP 138/67 12/28/23 08:00 Pulse Ox 95 12/28/23 08:00 FiO2 30 12/21/23 00:00 Intake & Output 12/27/23 12/28/23 12/28/23 18:59 06:59 18:59 Intake Total 220 1000 360 Output Total 1380 1000 500 Balance -1160 0 -140 Intake: Intake, IV Titration 1000 Amount Dextrose 5%-0.45% NaCl 1, 900 000 ml @ 75 mls/hr IV . [id number] ROXY Rx#:[id number] ceFAZolin 2 gm In Sodium 100 Chloride 0.9% 50 ml @ 100 mls/hr IVPB Q8H ROXY Rx#: [id number] Oral 220 360 Output: Urine 1380 1000 500 Other: Voiding Method Indwelling Catheter Indwelling Catheter Indwelling Catheter # Bowel Movements 0 - Exam General appearance: Reveals a 78-year-old female, sitting comfortably in bed, no acute distress. On room air. Head exam: Atraumatic, normocephalic. Eye exam: PERRLA, EOMI, nonicteric, no neck masses no JVD. ENT exam: Moist mucous membranes, throat is clear. Neck exam: Supple, no neck masses no JVD no stridor. Respiratory clear bilaterally diminished breath sounds at the bases no rhonchi no wheezes Cardiovascular Exam: Distant S1-S2, no S3 gallop, no murmur GI/Abdominal exam: Soft nontender no megaly no rebound no guarding Extremities exam: Clubbing edema or cyanosis Neurological exam: Alert and oriented x 3, no gross focal neurologic deficit Psychiatric exam: Normal mood affect, normal mental status Skin exam: Present: No rashes - Labs CBC & Chem 7: 12/28/23 05:26 12/28/23 05:26 Labs: Abnormal Lab Results - Last 24 Hours (Table) 12/27/23 12/27/23 12/28/23 Range/Units 16:28 21:16 05:26 WBC 4.16 L (4.50-10.00) X 10*3/uL RBC 2.70 L (4.10-5.20) X 10*6/uL Hgb 7.9 L (12.0-15.0) g/dL Hct 25.0 L (37.2-46.3) % MCHC 31.6 L (32.0-37.0) g/dL RDW 18.4 H (11.5-14.5) % Chloride (96-109) mmol/L BUN (9.0-27.0) mg/dL Est GFR (CKD-EPI) (>=60) BUN/Creatinine Ratio (12.00-20.00) Ratio POC Glucose (mg/dL) 138 H 124 H (70-110) mg/dL 12/28/23 12/28/23 Range/Units 05:26 11:16 WBC (4.50-10.00) X 10*3/uL RBC (4.10-5.20) X 10*6/uL Hgb (12.0-15.0) g/dL Hct (37.2-46.3) % MCHC (32.0-37.0) g/dL RDW (11.5-14.5) % Chloride 110 H (96-109) mmol/L BUN 35.3 H (9.0-27.0) mg/dL Est GFR (CKD-EPI) 57 L (>=60) BUN/Creatinine Ratio 35.30 H (12.00-20.00) Ratio POC Glucose (mg/dL) 123 H (70-110) mg/dL Assessment and Plan Assessment: Acute altered mental status, most likely secondary to acute metabolic encephalopathy, possible CVA, resolved patient seems to be back to baseline Acute endophthalmitis requiring intraocular injections of antibiotics, given by ophthalmology. Possible sepsis with acute toxic metabolic encephalopathy Paroxysmal atrial fibrillation presently in sinus Recurrent urinary tract infections Obesity with BMI of 42.2 kg/m Benign essential hypertension Recent eye surgery for cataract involving the right eye, patient is being followed by ophthalmology, possible glaucoma Degenerative joint disease Plan: The patient was seen and evaluated Labs and medications reviewed Stable and on room air Plan is for [facility] at discharge I have personally seen and examined the patient, performed the documentation and the assessment and plan as written. Number of minutes spent on the visit: 10.
[2023-12-28 17:05] LABS: Glucose,Whole Blood 105 mg/dL (70-110)
[2023-12-28 20:07] LABS: Glucose,Whole Blood 113 mg/dL (70-110)
[2023-12-29 05:14] LABS: Glucose,Whole Blood 94 mg/dL (70-110)
[2023-12-29 08:46] LABS: Basophils # (A) 0.01 X 10*3/uL (0.00-0.10); Basophils % (A) 0.2 %; Eosinophils # (A) 0.08 X 10*3/uL (0.04-0.35); Eosinophils % (A) 1.6 %; HCT 26.2 % (37.2-46.3); HGB 8.2 g/dL (12.0-15.0); Lymphocytes # (A) 1.13 X 10*3/uL (0.90-5.00); Lymphocytes % (A) 22.1 %; MCH 29.7 pg (27.0-32.0); MCHC 31.3 g/dL (32.0-37.0); MCV 94.9 FL (80.0-97.0); Mean Platelet Volume 11.5 FL (9.5-12.2); Monocytes # (A) 0.32 X 10*3/uL (0.20-1.00); Monocytes % (A) 6.3 %; NRBC Per 100 WBC 0 X 10*3/uL (0.00-0.01); Neutrophils # (A) 3.56 X 10*3/uL (1.80-7.70); Neutrophils % (A) 69.6 %; Platelet Count 245 X 10*3/uL (140-440); RBC 2.76 X 10*6/uL (4.10-5.20); RDW 18.4 % (11.5-14.5); WBC 5.11 X 10*3/uL (4.50-10.00)
[2023-12-29 09:26] LABS: BUN/Creat Ratio 43.78 Ratio (12.00-20.00); Blood Urea Nitrogen 39.4 mg/dL (9.0-27.0); Calcium 8.9 mg/dL (8.7-10.3); Carbon Dioxide 25.1 mmol/L (21.6-31.8); Chloride 107 mmol/L (96-109); Glucose 80 mg/dL (70-110); Potassium 5.2 mmol/L (3.5-5.5); Sodium 139 mmol/L (135-145)
--- NOTE | 2023-12-29 11:03 | P.PN ---
Subjective Progress Note Date: 12/28/23 Patient is a 78-year-old female admitted to the hospital with urinary tract infection and also has bilateral leg cellulitis and altered mental status. Patient was transferred from MICU. 12/28/2023 Patient is currently lying in the bed. Awake and alert and mentation is improving. No acute distress. Currently on room air. Still having bilateral lower extremity swelling. No complaints of chest pain or shortness of breath. No cough or sputum production. Patient has been afebrile. Patient has been continued on anticoagulation with Eliquis and also on antibiotics in the form of cefazolin. Lab data showed WBC 4.1, hemoglobin 7.9 and platelets 214 Sodium 140 potassium 5.1 chloride 110 bicarb is 23.1 BUN 35.3 and creatinine 1.0 and blood sugar 98 and calcium 8.7 Objective - Vital Signs Vital signs: Vital Signs Temp 97.9 F 12/28/23 08:00 Pulse 63 12/28/23 08:00 Resp 13 12/28/23 02:40 BP 138/67 12/28/23 08:00 Pulse Ox 95 12/28/23 08:00 FiO2 30 12/21/23 00:00 Intake & Output 12/27/23 12/28/23 12/28/23 18:59 06:59 18:59 Intake Total 220 1000 360 Output Total 1380 1000 500 Balance -1160 0 -140 Intake: Intake, IV Titration 1000 Amount Dextrose 5%-0.45% NaCl 1, 900 000 ml @ 75 mls/hr IV . [id number] ROXY Rx#:[id number] ceFAZolin 2 gm In Sodium 100 Chloride 0.9% 50 ml @ 100 mls/hr IVPB Q8H ROXY Rx#: [id number] Oral 220 360 Output: Urine 1380 1000 500 Other: Voiding Method Indwelling Catheter Indwelling Catheter Indwelling Catheter # Bowel Movements 0 - Exam PHYSICAL EXAMINATION: Patient is lying in the bed comfortably, no acute distress, awake alert and oriented.. HEENT: Normocephalic. Neck is supple. Pupils reactive. Nostrils clear. Oral cavity is moist. Neck reveals no JVD, carotid bruits, or thyromegaly. CHEST EXAMINATION: Trachea is central. Symmetrical expansion. Lung cabrera clear to auscultation and percussion. CARDIAC: Normal S1, S2 with no gallops. No murmurs ABDOMEN: Soft. Bowel sounds normal. No organomegaly. No abdominal bruits. Extremities: Bilateral lower extremity 2+ edema. No clubbing or cyanosis Neurologically awake, alert, oriented x 2. Able to move all extremities. No gross focal deficits noted Skin: No rash or skin lesions. Psychiatric: Coperative. Could not be surgery completely Musculoskeletal: No joint swelling or deformity. Normal range of motion. - Labs CBC & Chem 7: 12/29/23 05:34 12/29/23 05:34 Labs: Abnormal Lab Results - Last 24 Hours (Table) 12/27/23 12/27/23 12/28/23 Range/Units 16:28 21:16 05:26 WBC 4.16 L (4.50-10.00) X 10*3/uL RBC 2.70 L (4.10-5.20) X 10*6/uL Hgb 7.9 L (12.0-15.0) g/dL Hct 25.0 L (37.2-46.3) % MCHC 31.6 L (32.0-37.0) g/dL RDW 18.4 H (11.5-14.5) % Chloride (96-109) mmol/L BUN (9.0-27.0) mg/dL Est GFR (CKD-EPI) (>=60) BUN/Creatinine Ratio (12.00-20.00) Ratio POC Glucose (mg/dL) 138 H 124 H (70-110) mg/dL 12/28/23 12/28/23 Range/Units 05:26 11:16 WBC (4.50-10.00) X 10*3/uL RBC (4.10-5.20) X 10*6/uL Hgb (12.0-15.0) g/dL Hct (37.2-46.3) % MCHC (32.0-37.0) g/dL RDW (11.5-14.5) % Chloride 110 H (96-109) mmol/L BUN 35.3 H (9.0-27.0) mg/dL Est GFR (CKD-EPI) 57 L (>=60) BUN/Creatinine Ratio 35.30 H (12.00-20.00) Ratio POC Glucose (mg/dL) 123 H (70-110) mg/dL Assessment and Plan Assessment: Acute metabolic encephalopathy likely due to infection. Stroke workup is negative. Acute urinary tract infection with history of recurrent infections Bilateral lower extremity cellulitis Possible fluid overload. Improved now History of hypopyon surgery Acute kidney injury. Improved Weakness and gait dysfunction Paroxysmal atrial fibrillation on anticoagulation with Eliquis Acute endophthalmitis requiring intraocular injections of antibiotics, given by ophthalmology. GI prophylaxis with PPI Plan: Patient will be continued on antibiotics in the form of cefazolin. Increase water intake and IV fluids will be discontinued. Continue with metoprolol and anticoagulation with Eliquis. Patient is on Seroquel 12.5 mg at bedtime. PT OT is on board and possible rehab transfer. Pulmonary is on board. Time with Patient: Greater than 30
[2023-12-29 11:14] VITALS: RESP 17
[2023-12-29 11:55] LABS: Glucose,Whole Blood 93 mg/dL (70-110)
--- NOTE | 2023-12-29 12:44 | P.PN ---
Subjective Progress Note Date: 12/29/23 On 12/20/2023, the patient got transferred to the intensive care unit. The patient became acutely unresponsive. She did have a left facial droop and she was nonverbal, barely responsive to any painful stimulation. Respiratory rate was also low and the patient was having shallow low rate respiration. Suspect an acute stroke. A code stroke was called and the patient underwent a CAT scan of the head that showed no acute abnormalities. No evidence of any bleed or stroke identified. Also, his CTA of the brain was also done that showed patent intracranial arteries. Patient was already on anticoagulation with Eliquis. Neuro interventional specialist was contacted and the patient was not found to be candidate for thrombolytics. Based on that, the patient got transferred to the intensive care unit. Currently she is on a BiPAP ST mode at a pressure of 12/5 with a backup rate of 12. FiO2 is being adjusted to maintain saturation above 90%. Blood gases are to follow. The patient is not responsive to any deep painful stimulation at this point and she is unresponsive. No seizure activity has been noted. Cardiac rhythm is sinus and the patient has history of paroxysmal atrial fibrillation maintained on anticoagulation. The patient was hospitalized earlier because of generalized weakness and inability to eat or drink. She was having generalized weakness. Suspected to have underlying urine tract infection. The patient is known to have previous episodes of UTI. UA was abnormal consistent with infection. Nevertheless, urine cultures have been negative. Since admission, the patient was treated with IV Rocephin. She was also receiving IV fluids normal saline at rate of 75 cc an hour. She was awake and responsive up to this morning. Blood work from today showed a sodium level of 142, potassium level of 5.6, bicarb is 19 with a BUN of 31 with a creatinine of 1.1. CBC is still pending from today. Most recent CBC showed a WBC count of 13 with a hemoglobin 9.5. She is on no pressors for now. She is afebrile. The viral screen has been negative. Neurology has been consulted. On a separate note, the patient has undergone a recent right eye surgery for glaucoma. Patient was reeval today on 12/21/2023, patient is doing well. Her mental status is improving, patient was admitted with altered mental status, and at 1 point she was being considered for intubation because there was a concern about protecting her airways. However while in the process of discussing CODE STATUS with family, and the family requested not to be intubated, patient did not get intubated and her mental status has been gradually improving. Today she seems to be slow but arousable, follows simple instructions. Does not seem to be in any distress, workup is still pending. She is on 2 L nasal cannula and O2 sats is 95% CBC is relatively normal except for hemoglobin of 9. Basic metabolic profile is normal BUN is 30 creatinine 1.08, chest x-ray showed no acute pulmonary disease, patient was seen by neurology, felt that the patient had acute onset of unresponsiveness with encephalopathy, rule out CVA. Workup is nondiagnostic so far reevaluated today on 12/22/2023, patient remains in the ICU, she is presently an overflow. Patient was seen by ophthalmology yesterday, and she had intraocular injection of antibiotics for her endophthalmitis. Overnight patient had 2 episodes of low blood sugar requiring dextrose, IV push. Patient remains on room air, doing well, asymptomatic, a bit confused but she is still oriented to place. WBC count is 4.2 hemoglobin is 9.1 basic metabolic profile is normal renal profile showed a BUN of 24 creatinine 1.05. His x-ray today showed bord rajendra cardiomegaly and mild interstitial prominence. No evidence of pneumonia no evidence of pleural effusions Patient was reevaluated today/, remains in the ICU, her mental status continues to wax and wane. Today she seems to be slower, nonetheless she is arousable, she is oriented only x 1/place, she knew where she was. Otherwise could not get much information from the patient. Patient is quite lethargic. Labs are a bit abnormal with WBC count of 2.6 hemoglobin 8.8 platelets are 10 3000 basic metabolic profile is normal bicarb is 17 renal profile is normal Patient was today on 12/24/2023, remains in the ICU as an overflow, patient is on room air, does not seem to be in any distress, she is still on antibiotics still on 0.9 normal saline at 75 cc/h. Mentation barlow this is the best I have seen her today, patient is awake alert oriented, does not seem to be in any distress, and she is in a very pleasant mood. WBC count is 2.7 hemoglobin 8.4 basic metabolic profile is normal bicarb is 17 BUN is 16 creatinine 0.95 TSH is a bit on the high side 4.9 The patient is seen today 12/25/2023 in follow-up on the selective care unit. She is currently sitting up in a chair at the bedside. Awake and alert in no acute distress. She is maintaining good O2 saturations in the high 90s on room air. She is afebrile. Hemodynamically stable. Blood cultures revealed no growth. Right thigh cultures revealed no growth. Follow-up blood culture revealing no growth. White count 4.8. Hemoglobin 9.2. Platelets 148. Sodium 141. Potassium 4.0. Bicarb 19. BUN 23. Creatinine 1.08. Glucose 97. She is continued on cefazolin. Continued with eyedrops. Anticoagulated with Eliquis. The patient is seen today December 26, 2023 in the selective care unit. She is currently sitting up in bed. Awake and alert in no acute distress. She is maintaining good O2 saturation in the 90s on room air. She has D5 and half- normal saline at 75 MLS per hour. She denies any worsening shortness of breath, cough or congestion. White count 4.5. Hemoglobin 8.5. Platelets 171. Sodium 140. Potassium 4.6. Bicarb 20. BUN 28. Creatinine 1.08. Glucose 99. Remains on cefazolin. Anticoagulated with Eliquis. Eyedrops are continued. The patient is seen today December 27, 2023 in follow-up on the regular medical floor. She is awake and alert in no acute distress. Denies any worsening s hortness of breath, cough or congestion. Blood cultures revealed no growth. Right eye cultures revealed no growth. Follow-up blood cultures revealed no growth. Blood glucose 105. She remains on cefazolin. Continued on D5 and half-normal saline at 75 MLS per hour. Eliquis for anticoagulation. The patient is seen today December 28, 2023 in follow-up on the regular medical floor. She is currently resting comfortably in bed. Awake and alert in no acute distress. She is maintaining good O2 saturations in the 90s on room air. She has D5.45 at 75 MLS per hour. Anticoagulated with Eliquis. Remains on cefazolin. White count 4.1. Hemoglobin 7.9. Platelets 214. Sodium 140. Potassium 5.1. Bicarb 23. BUN 35. Creatinine 1.0. Glucose 98. The patient is seen today December 29, 2019 for follow-up on the regular medical floor. She is awake and alert in no acute distress. Maintaining good O2 saturations on the 90s on room air. No IV fluids. She is oriented. Talking on the phone. She is continued on cefazolin. Remains anticoagulated with Eliquis. White count 5.1. Hemoglobin 8.2. Platelets 245. Sodium 139. Potassium 5.2. Bicarb 25. BUN 39. Creatinine 0.9. Glucose 80. Objective - Vital Signs Vital signs: Vital Signs Temp 97.7 F 12/29/23 07:00 Pulse 63 12/29/23 07:00 Resp 17 12/29/23 07:00 BP 137/72 12/29/23 07:00 Pulse Ox 97 12/29/23 07:00 FiO2 30 12/21/23 00:00 Intake & Output 12/28/23 12/29/23 12/29/23 18:59 06:59 18:59 Intake Total 1648 650 Output Total 500 700 Balance 1148 -50 Weight 108 kg Intake: IV 600 Dextrose 5%-0.45% NaCl 1, 600 000 ml @ 75 mls/hr IV . [id number] [facility] Rx#:[id number] Oral 1048 650 Output: Urine 500 700 Other: Voiding Method Indwelling Catheter Indwelling Catheter Indwelling Catheter - Exam General appearance: Reveals a pleasant 78-year-old female, resting in bed, no acute distress. On room air. Head exam: Atraumatic, normocephalic. Eye exam: PERRLA, EOMI, nonicteric, no neck masses no JVD. ENT exam: Moist mucous membranes, throat is clear. Neck exam: Supple, no neck masses no JVD no stridor. Respiratory clear bilaterally diminished breath sounds at the bases no rhonchi no wheezes Cardiovascular Exam: Distant S1-S2, no S3 gallop, no murmur GI/Abdominal exam: Soft nontender no megaly no rebound no guarding Extremities exam: Clubbing edema or cyanosis Neurological exam: Alert and oriented x 3, no gross focal neurologic deficit Psychiatric exam: Normal mood affect, normal mental status Skin exam: Present: No rashes - Labs CBC & Chem 7: 12/29/23 05:34 12/29/23 05:34 Labs: Abnormal Lab Results - Last 24 Hours (Table) 12/28/23 12/29/23 12/29/23 Range/Units 20:07 05:34 05:34 RBC 2.76 L (4.10-5.20) X 10*6/uL Hgb 8.2 L (12.0-15.0) g/dL Hct 26.2 L (37.2-46.3) % MCHC 31.3 L (32.0-37.0) g/dL RDW 18.4 H (11.5-14.5) % BUN 39.4 H (9.0-27.0) mg/dL BUN/Creatinine Ratio 43.78 H (12.00-20.00) Ratio POC Glucose (mg/dL) 113 H (70-110) mg/dL Microbiology - Last 24 Hours (Table) 12/23/23 13:50 Blood Culture - Final Blood Assessment and Plan Assessment: Acute altered mental status, most likely secondary to acute metabolic encephalopathy, possible CVA, resolved patient seems to be back to baseline Acute endophthalmitis requiring intraocular injections of antibiotics, given by ophthalmology. Possible sepsis with acute toxic metabolic encephalopathy Paroxysmal atrial fibrillation presently in sinus Recurrent urinary tract infections Obesity with BMI of 42.2 kg/m Benign essential hypertension Recent eye surgery for cataract involving the right eye, patient is being followed by ophthalmology, possible glaucoma Degenerative joint disease Plan: The patient was seen and evaluated Labs and medications reviewed Stable and on room air Anticoagulated with Eliquis Could transition to oral antibiotic Plan is for [facility] at discharge I have personally seen and examined the patient, performed the documentation and the assessment and plan as written. Number of minutes spent on the visit: 10.
--- NOTE | 2023-12-29 14:21 | P.DS ---
Providers Date of admission: 12/17/23 23:04 Expected date of discharge: 12/29/23 Attending physician: Kelvin Green Consults: 12/19/23 10:49 Consult Physician Routine Consulting Provider: Ady Gordon Consult Reason/Comments: glaucoma sx 13 days ago, sees dr caban, red/swollen/draining Do you want consulting provider notified?: Yes 12/20/23 12:19 Consult Physician Stat Consulting Provider: Rito Orozco Consult Reason/Comments: code stroke Do you want consulting provider notified?: Yes 12/20/23 13:16 Consult Physician Routine Consulting Provider: Ramses Diane Consult Reason/Comments: ICU Management Do you want consulting provider notified?: Already Contacted 12/21/23 13:18 Consult Physician Routine Consulting Provider: Kenton Longoria Consult Reason/Comments: AMS, possible ?cellulitis BLE Do you want consulting provider notified?: Yes 12/21/23 14:57 Consult Physician Routine Consulting Provider: Kenton Longoria Consult Reason/Comments: possible cellulitis; AMS changes Do you want consulting provider notified?: Yes 12/23/23 13:05 Consult Physician Routine Consulting Provider: Marcia Carver Consult Reason/Comments: pancytopenia Do you want consulting provider notified?: Yes Primary care physician: Maye Scruggs Hospital Course: Discharge diagnosis Acute metabolic encephalopathy likely due to infection. Stroke workup is negative. Mentation is back to baseline. Acute urinary tract infection with history of recurrent infections Bilateral lower extremity cellulitis Possible fluid overload. Improved now History of hypopyon surgery Acute kidney injury. Improved Weakness and gait dysfunction Paroxysmal atrial fibrillation on anticoagulation with Eliquis Acute endophthalmitis requiring intraocular injections of antibiotics, given by ophthalmology. GI prophylaxis with PPI Hospital course Patient is a 78-year-old female admitted to the hospital with altered mental status, urinary tract infection and also has bilateral leg cellulitis . Patient was initially admitted to MICU. 12/28/2023 Patient is currently lying in the bed. Awake and alert and mentation is improving. No acute distress. Currently on room air. Still having bilateral lower extremity swelling. No complaints of chest pain or shortness of breath. No cough or sputum production. Patient has been afebrile. Patient has been continued on anticoagulation with Eliquis and also on antibiotics in the form of cefazolin. Lab data showed WBC 4.1, hemoglobin 7.9 and platelets 214 Sodium 140 potassium 5.1 chloride 110 bicarb is 23.1 BUN 35.3 and creatinine 1.0 and blood sugar 98 and calcium 8.7 12/29/2023 Patient is resting in the bed. Awake alert and oriented x 3. No complaints of chest pain or shortness. Currently on room air. Denied any headache or dizzi ness or lightheadedness. Blood pressure is controlled. Mentation is back to baseline. No other acute overnight issues. Able to tolerate oral diet. Patient has been continued on antibiotics cefazolin. Completed 7 out of 10 days for bilateral lower extremity cellulitis. Blood cultures and wound cultures negative. Lab data showed WBC 5.1 hemoglobin 8.2, platelets 245 Sodium 139 potassium 5.2 chloride 107 bicarb is 25.1 BUN 39.14 creatinine 0.9, blood sugar 80 and calcium 8.9. Patient is being discharged to [facility] today. PHYSICAL EXAMINATION: Patient is lying in the bed comfortably, no acute distress, awake alert and oriented.. HEENT: Normocephalic. Neck is supple. Pupils reactive. Nostrils clear. Oral cavity is moist. Neck reveals no JVD, carotid bruits, or thyromegaly. CHEST EXAMINATION: Trachea is central. Symmetrical expansion. Lung cabrera clear to auscultation and percussion. CARDIAC: Normal S1, S2 with no gallops. No murmurs ABDOMEN: Soft. Bowel sounds normal. No organomegaly. No abdominal bruits. Extremities: Bilateral lower extremity trace edema. No clubbing or cyanosis Neurologically awake, alert, oriented x 2. Able to move all extremities. No gross focal deficits noted Skin: No rash or skin lesions. Psychiatric: Coperative. Could not be surgery completely Musculoskeletal: No joint swelling or deformity. Normal range of motion. Vital Signs - 24 hr 12/28/23 12/29/23 12/29/23 19:13 01:25 07:00 Temperature 97.3 F L 97.6 F 97.7 F Pulse Rate [ 67 63 63 Pulse Oximetery ] Respiratory 18 18 17 Rate Blood Pressure 147/73 156/71 137/72 [Left Arm] O2 Sat by Pulse 96 99 97 Oximetry Total time taken greater than 35 minutes including 18 minutes for counseling and coordination of care. Patient Condition at Discharge: Stable Plan - Discharge Summary Discharge Rx Participant: No New Discharge Prescriptions: New cefUROXime axetiL [Ceftin] 500 mg PO BID 3 Days #6 tab Continue Brimonidine Tartrate [Alphagan P 0.2% Ophth Soln] 1 drop RIGHT EYE BID Furosemide [Lasix] 40 mg PO DAILY Apixaban [Eliquis] 5 mg PO BID tab Atorvastatin [Lipitor] 40 mg PO DAILY tab Metoprolol Succinate (ER) [Toprol XL] 25 mg PO DAILY tab Albuterol Inhaler [Ventolin Hfa Inhaler] 1 - 2 puff INHALATION RT-TID PRN PRN Reason: Shortness Of Breath Omeprazole 20 mg PO AC-BRKFST prednisoLONE ACETATE 1% OPHTH [Pred Forte 1%] 1 drop RIGHT EYE QID Latanoprost Ophth [Xalatan 0.005%] 1 drop LEFT EYE BID Fluorometholone 0.1% Ophth Megan [Fml] 1 drop LEFT EYE BID Losartan [Cozaar] 25 mg PO DAILY Dorzolamide-Timol 2.23%/0.68% [Cosopt] 1 drop LEFT EYE BID Discharge Medication List Brimonidine Tartrate [Alphagan P 0.2% Ophth Soln] 1 drop RIGHT EYE BID 01/27/23 [History] Fluorometholone 0.1% Ophth Megan [Fml] 1 drop LEFT EYE BID 01/27/23 [History] Furosemide [Lasix] 40 mg PO DAILY 07/08/23 [History] Apixaban [Eliquis] 5 mg PO BID tab 07/15/23 [Rx] Atorvastatin [Lipitor] 40 mg PO DAILY tab 07/15/23 [Rx] Metoprolol Succinate (ER) [Toprol XL] 25 mg PO DAILY tab 07/15/23 [Rx] Albuterol Inhaler [Ventolin Hfa Inhaler] 1 - 2 puff INHALATION RT-TID PRN 08/30/23 [History] Losartan [Cozaar] 25 mg PO DAILY 08/30/23 [History] Omeprazole 20 mg PO AC-BRKFST 08/30/23 [History] Dorzolamide-Timol 2.23%/0.68% [Cosopt] 1 drop LEFT EYE BID 12/18/23 [History] Latanoprost Ophth [Xalatan 0.005%] 1 drop LEFT EYE BID 12/18/23 [History] prednisoLONE ACETATE 1% OPHTH [Pred Forte 1%] 1 drop RIGHT EYE QID 12/18/23 [History] cefUROXime axetiL [Ceftin] 500 mg PO BID 3 Days #6 tab 12/29/23 [Rx] Follow up Appointment(s)/Referral(s): Maye Scruggs MD [Primary Care Provider] - 1-2 days Velasquez Solorzano DO [Doctor of Osteopathic Medicine] - 1-2 Days (needs immediate examation upon discharge) Discharge Disposition: TRANSFER TO SNF/ECF
--- NOTE | 2023-12-29 14:35 | P.PN ---
Subjective Progress Note Date: 12/29/23 I am seeing the patient for the first time during this admission. Please refer to Dr Orozco's notes for further details. is seems the patient had an episode of altered mental status with unresponsiveness of unclear cause. Patient feels drastically better. Seems that she had an EEG and there is no seizure noted. Keppra was initially started and was stopped since no seizure and her mentation improved. Objective - Vital Signs Vital signs: Vital Signs Temp 97.7 F 12/29/23 07:00 Pulse 63 12/29/23 07:00 Resp 17 12/29/23 07:00 BP 137/72 12/29/23 07:00 Pulse Ox 97 12/29/23 07:00 FiO2 30 12/21/23 00:00 Intake & Output 12/28/23 12/29/23 12/29/23 18:59 06:59 18:59 Intake Total 1648 650 Output Total 500 700 Balance 1148 -50 Weight 108 kg Intake: IV 600 Dextrose 5%-0.45% NaCl 1, 600 000 ml @ 75 mls/hr IV . [id number] [facility] Rx#:[id number] Oral 1048 650 Output: Urine 500 700 Other: Voiding Method Indwelling Catheter Indwelling Catheter Indwelling Catheter - Exam General: Sitting in a recliner chair and is not in acute distress. Neuro: The patient is awake, alert, oriented to self, place and time. Is following simple commands. No aphasia or neglect. No facial weakness or dysarthria. Motor: strength is lifting bilateral uppers above gravity equally and wiggling toes symmetrically. - Labs CBC & Chem 7: 12/29/23 05:34 12/29/23 05:34 Labs: Abnormal Lab Results - Last 24 Hours (Table) 12/28/23 12/29/23 12/29/23 Range/Units 20:07 05:34 05:34 RBC 2.76 L (4.10-5.20) X 10*6/uL Hgb 8.2 L (12.0-15.0) g/dL Hct 26.2 L (37.2-46.3) % MCHC 31.3 L (32.0-37.0) g/dL RDW 18.4 H (11.5-14.5) % BUN 39.4 H (9.0-27.0) mg/dL BUN/Creatinine Ratio 43.78 H (12.00-20.00) Ratio POC Glucose (mg/dL) 113 H (70-110) mg/dL Microbiology - Last 24 Hours (Table) 12/23/23 13:50 Blood Culture - Final Blood Assessment and Plan Assessment: * Acute episode of altered mental status with unresponsiveness, unclear cause. No large vessel occlusion noted on the CTA. CT head showed no acute process. CVA less likely. .Patient's mentation has remarkably improved. Her examination is nonfocal. Appears patient probably has metabolic encephalopathy. * Acute encephalopathy, unclear cause, probably toxic metabolic encephalopathy. Reasons multifactorial as mentioned below. * No evidence of seizure. * Acute UTI * Probable bilateral lower extremity cellulitis * Right eye infection. * Atrial fibrillation, on Eliquis * Osteoarthritis * History of lymphedema Plan: Patient has cellulitis and probable UTI, on cefazolin 2 g every 8 hours. Appreciate ID input. Repeat CT head 12/24/2023 showed no acute intracranial process. Chronic appearing white matter ischemic type changes, in the left periventricular white matter. Follow-up MRI can be performed as clinically indicated. I personally reviewed CT head agree with the findings. Patient resumed on Eliquis 5 mg twice daily. No need for aspirin because of anemia and no significant atherosclerotic disease. 2-D echo revealed normal left ventricular function with EF 50 to 55%. Severely increased left ventricular diastolic volume. Severely increased left ventricular systolic volume. Global hypokinesis. Moderately increased left atrial volume. Mild MR. CTA head and neck showed: Mild atherosclerotic disease without evidence of hemodynamically significant stenosis or dissection. Patent CTA head. No intracranial large vessel occlusion, significant stenosis or aneurysm. Fasting a.m. lipid panel cholesterol 100, LDL 39.6, HDL 40, triglycerides 101 on 07/17/2023. Continue Lipitor 40 mg daily. Hemoglobin A1c 5.6 TSH 3.38, normal. B12 759, folate 13.8 on 07/17/2023. No need to repeat. EEG was abnormal due to background slowing of moderate degree, suggestive of encephalopathy. Also there was superimposed bitemporal slowing, L > R, suggestive of focal cortical neuronal dysfunction. No epileptiform activity was seen. Patient empirically placed on Keppra by Dr. Orozco 1000 mg IV push x 1 dose, followed by Keppra 750 mg twice daily. Then Keppra was eventually stopped by Dr. Orozco since no seizure. Optimize control of blood pressure. Neurochecks every 4 hours. Telemetry monitoring rule out any arrhythmia PT, OT, speech therapy, when patient able to cooperate DVT prophylaxis: Patient to be continued on Eliquis. There is no further neurological work-up. Will sign off. Please reconsult if needed. Time with Patient: Less than 30
[2023-12-29 16:27] VITALS: BP 103/63; PULSE 65; TEMP 98.2
--- NOTE | 2024-01-01 16:10 | P.PN ---
Subjective Progress Note Date: 12/27/23 Principal diagnosis: Reason for follow-up is bilateral lower extremity cellulitis Patient is a 78-year-old female with a past medical history significant for atrial fibrillation osteoarthritis patient was brought to the hospital for evaluation of increased weakness and did have some mental status changes patient was hypothermic positive UA concerning for UTI also noticed to have a bilateral lower extremity redness concerning for cellulitis prompting this consultation. On today's evaluation that is 12/27/2023, the patient continues to be afebrile, the patient is on room air and breathing comfortably, the Pt denies having any chest pain or cough, the patient denies having any abdominal pain no vomiting or any diarrhea has been reported by the nursing staff, denies pain to the lower extremity. No lab draw today Objective - Vital Signs Vital signs: Vital Signs Temp 97.8 F 12/27/23 08:00 Pulse 59 L 12/27/23 08:00 Resp 16 12/27/23 08:00 BP 127/63 12/27/23 08:00 Pulse Ox 96 12/27/23 08:00 FiO2 30 12/21/23 00:00 Intake & Output 12/26/23 12/27/23 12/27/23 18:59 06:59 18:59 Intake Total 540 Output Total 1200 1000 Balance -660 -1000 Intake: Oral 540 Output: Urine 1200 1000 Other: Voiding Method Indwelling Catheter Indwelling Catheter - Exam GENERAL DESCRIPTION: An elderly female lying in bed in no distress RESPIRATORY SYSTEM: Unlabored breathing , decreased breath sounds at bases HEART: S1 S2 regular rate and rhythm , ABDOMEN: Soft , no tenderness EXTREMITIES: Bilateral lower extremity currently wrapped in Yordan wrap Exam completed with the help of [employer] ATTENDANT - Labs CBC & Chem 7: 12/29/23 05:34 12/29/23 05:34 Labs: Abnormal Lab Results - Last 24 Hours (Table) 12/26/23 12/26/23 12/26/23 Range/Units 11:14 17:04 20:15 POC Glucose (mg/dL) 112 H 111 H 129 H (70-110) mg/dL Microbiology - Last 24 Hours (Table) 12/23/23 13:50 Blood Culture - Preliminary Blood Assessment and Plan (1) Bilateral lower leg cellulitis Status: Acute Code(s): L03.116 - CELLULITIS OF LEFT LOWER LIMB; L03.115 - CELLULITIS OF RIGHT LOWER LIMB SNOMED Code(s): 273626690 Plan: 1patient presented to hospital generalized weakness and this patient noticed to have elevated white count also hypothermia temperature subsequent normalized source could be UTI versus bilateral lower extremity cellulitis with diffuse swelling redness likely streptococcal disease 2patient is afebrile, the patient white count has been normal 3-patient to continue cefazolin along with apply Yordan wrap to keep the swelling down and monitor clinical course closely Dictation was produced using [employer] dictation software. please excuse any grammatical, word or spelling errors. Time with Patient: Less than 30
--- NOTE | 2024-01-01 16:11 | P.PN ---
Subjective Progress Note Date: 12/28/23 Principal diagnosis: Reason for follow-up is bilateral lower extremity cellulitis Patient is a 78-year-old female with a past medical history significant for atrial fibrillation osteoarthritis patient was brought to the hospital for evaluation of increased weakness and did have some mental status changes patient was hypothermic positive UA concerning for UTI also noticed to have a bilateral lower extremity redness concerning for cellulitis prompting this consultation. On today's evaluation that is 12/28/2023, Patient is afebrile patient is currently on room air and denies having any shortness of breath, the patient denies any chest pain or cough, the patient denies any nausea vomiting did not have any abdominal pain and no diarrhea patient lower extremity swelling and pain has improved. Patient did have a white count of 4.16 creatinine is 1.0 Objective - Vital Signs Vital signs: Vital Signs Temp 97.9 F 12/28/23 08:00 Pulse 63 12/28/23 08:00 Resp 13 12/28/23 02:40 BP 138/67 12/28/23 08:00 Pulse Ox 95 12/28/23 08:00 FiO2 30 12/21/23 00:00 Intake & Output 12/27/23 12/28/23 12/28/23 18:59 06:59 18:59 Intake Total 220 1000 360 Output Total 1380 1000 500 Balance -1160 0 -140 Intake: Intake, IV Titration 1000 Amount Dextrose 5%-0.45% NaCl 1, 900 000 ml @ 75 mls/hr IV . [id number] [facility] Rx#:[id number] ceFAZolin 2 gm In Sodium 100 Chloride 0.9% 50 ml @ 100 mls/hr IVPB Q8H [facility] Rx#: [id number] Oral 220 360 Output: Urine 1380 1000 500 Other: Voiding Method Indwelling Catheter Indwelling Catheter Indwelling Catheter # Bowel Movements 0 - Exam GENERAL DESCRIPTION: An elderly female lying in bed in no distress RESPIRATORY SYSTEM: Unlabored breathing , decreased breath sounds at bases HEART: S1 S2 regular rate and rhythm , ABDOMEN: Soft , no tenderness EXTREMITIES: Bilateral lower extremity currently wrapped in Yordan wrap - Labs CBC & Chem 7: 12/29/23 05:34 12/29/23 05:34 Labs: Abnormal Lab Results - Last 24 Hours (Table) 12/27/23 12/27/23 12/28/23 Range/Units 16:28 21:16 05:26 WBC 4.16 L (4.50-10.00) X 10*3/uL RBC 2.70 L (4.10-5.20) X 10*6/uL Hgb 7.9 L (12.0-15.0) g/dL Hct 25.0 L (37.2-46.3) % MCHC 31.6 L (32.0-37.0) g/dL RDW 18.4 H (11.5-14.5) % Chloride (96-109) mmol/L BUN (9.0-27.0) mg/dL Est GFR (CKD-EPI) (>=60) BUN/Creatinine Ratio (12.00-20.00) Ratio POC Glucose (mg/dL) 138 H 124 H (70-110) mg/dL 12/28/23 12/28/23 Range/Units 05:26 11:16 WBC (4.50-10.00) X 10*3/uL RBC (4.10-5.20) X 10*6/uL Hgb (12.0-15.0) g/dL Hct (37.2-46.3) % MCHC (32.0-37.0) g/dL RDW (11.5-14.5) % Chloride 110 H (96-109) mmol/L BUN 35.3 H (9.0-27.0) mg/dL Est GFR (CKD-EPI) 57 L (>=60) BUN/Creatinine Ratio 35.30 H (12.00-20.00) Ratio POC Glucose (mg/dL) 123 H (70-110) mg/dL Assessment and Plan (1) Bilateral lower leg cellulitis Status: Acute Code(s): L03.116 - CELLULITIS OF LEFT LOWER LIMB; L03.115 - CELLULITIS OF RIGHT LOWER LIMB SNOMED Code(s): 442642706 Plan: 1patient presented to hospital generalized weakness and this patient noticed to have elevated white count also hypothermia temperature subsequent normalized source could be UTI versus bilateral lower extremity cellulitis with diffuse swelling redness likely streptococcal disease 2patient is afebrile, the patient white count has been normal 3-patient to continue with Yordan wrap to keep the swelling down along with cefazolin finishing therapy with oral Keflex Dictation was produced using [employer] dictation software. please excuse any grammatical, word or spelling errors. Time with Patient: Less than 30
--- NOTE | 2024-01-01 16:12 | P.PN ---
Subjective Progress Note Date: 12/29/23 Principal diagnosis: Reason for follow-up is bilateral lower extremity cellulitis Patient is a 78-year-old female with a past medical history significant for atrial fibrillation osteoarthritis patient was brought to the hospital for evaluation of increased weakness and did have some mental status changes patient was hypothermic positive UA concerning for UTI also noticed to have a bilateral lower extremity redness concerning for cellulitis prompting this consultation. On today's evaluation that is 12/29/2023, patient has been afebrile, patient is breathing comfortably and is currently on room air, patient denies having any significant cough no chest pain shortness of breath, patient denies nausea vomiting or diarrhea and no abdominal pain, patient denies pain to bilateral lower extremity overall swelling redness has improved. Patient white count is 5.11, creatinine 0.9 Objective - Vital Signs Vital signs: Vital Signs Temp 98.2 F 12/29/23 14:00 Pulse 65 12/29/23 14:00 Resp 17 12/29/23 14:00 BP 103/63 12/29/23 14:00 Pulse Ox 96 12/29/23 14:00 FiO2 30 12/21/23 00:00 Intake & Output 12/28/23 12/29/23 12/29/23 18:59 06:59 18:59 Intake Total 1648 650 Output Total 500 700 Balance 1148 -50 Weight 108 kg Intake: IV 600 Dextrose 5%-0.45% NaCl 1, 600 000 ml @ 75 mls/hr IV . [id number] [facility] Rx#:[id number] Oral 1048 650 Output: Urine 500 700 Other: Voiding Method Indwelling Catheter Indwelling Catheter Indwelling Catheter - Exam GENERAL DESCRIPTION: An elderly female lying in bed in no distress RESPIRATORY SYSTEM: Unlabored breathing , decreased breath sounds at bases HEART: S1 S2 regular rate and rhythm , ABDOMEN: Soft , no tenderness EXTREMITIES: Bilateral lower extremity currently wrapped in Yordan wrap - Labs CBC & Chem 7: 12/29/23 05:34 12/29/23 05:34 Labs: Abnormal Lab Results - Last 24 Hours (Table) 12/28/23 12/29/23 12/29/23 Range/Units 20:07 05:34 05:34 RBC 2.76 L (4.10-5.20) X 10*6/uL Hgb 8.2 L (12.0-15.0) g/dL Hct 26.2 L (37.2-46.3) % MCHC 31.3 L (32.0-37.0) g/dL RDW 18.4 H (11.5-14.5) % BUN 39.4 H (9.0-27.0) mg/dL BUN/Creatinine Ratio 43.78 H (12.00-20.00) Ratio POC Glucose (mg/dL) 113 H (70-110) mg/dL Microbiology - Last 24 Hours (Table) 12/23/23 13:50 Blood Culture - Final Blood Assessment and Plan (1) Bilateral lower leg cellulitis Status: Acute Code(s): L03.116 - CELLULITIS OF LEFT LOWER LIMB; L03.115 - CELLULITIS OF RIGHT LOWER LIMB SNOMED Code(s): 031880918 Plan: 1patient presented to hospital generalized weakness and this patient noticed to have elevated white count also hypothermia temperature subsequent normalized source could be UTI versus bilateral lower extremity cellulitis with diffuse swelling redness likely streptococcal disease 2patient is afebrile, the patient white count has been normal 3-patient to continue with Yordan wrap to keep the swelling down and a short course of oral Keflex on discharge and close outpatient follow-up discussed with [facility] for admitting team Dictation was produced using [employer] dictation software. please excuse any grammatical, word or spelling errors. Time with Patient: Less than 30
--- NOTE | 2024-01-04 16:05 | CDI ---
Documentation Clarification Form Date: 01/04/2024 03:31:42 PM From: Tiana Roque RN CCDS Phone: [phone] Admit Date: 12/17/2023 11:04:00 PM Patient Name: Ashley Lang Visit Number: [id number] Discharge Date: 12/29/2023 06:03:00 PM ATTENTION: The Clinical Documentation Specialists (CDI) and [facility] Coding Staff appreciate your assistance in clarifying documentation. Please respond to the clarification below the line at the bottom and electronically sign. The CDI & [facility] Coding staff will review the response and follow-up if needed. Please note: Queries are made part of the Legal Health Record. If you have any questions, please contact the author of this message via ITS. Dr. Yee Harding Possible Sepsis is documented 12/21, Pulmonary note. For each diagnosis, documentation must be clear to determine if the condition was present at the time of the patients inpatient admission or developed during the hospital stay. Additional clarification regarding the Sepsis is requested. History/Risk Factors: 78-year-old female presents to the ED with increased weakness unable to get out of bed with some slurred speech. Medical history: OA, Glaucoma, Bilateral Cataract Eye surgery 11/30/2023with Ahmed valve placement in the right eye, She was last seen in the office on 13 December for post operative follow up and was doing well without any infection, and a low IOP.She apparently has a long standing history of advanced glaucoma and is still currently using glaucoma drops in the left. 12/16 H&P and 12/20 Ophthalmology consult. Clinical Indicators: VSS, B/P 130/70; HR 53; Temp 96.9 F Oral; RR 18; SpO2 98% ra LABS, 12/16: Wbc 3.8, Neutrophils 2.9, UA appearance Cloudy; Blood moderate; Nitrate Positive; Leukocyte esterase Large; Wbc 31; Bacteria Many Brain CT, 12/16: No acute intracranial abnormality. Atrophy and chronic microvascular ischemic white matter changes. 12/20, Pulmonology note: Recurrent urinary tract infections patient is receiving Rocephin empirically. Pulmonology, 12/21 thru d/c date: Acute altered mental status, improving most likely secondary to acute metabolic encephalopathy, possible CVA. Acute endophthalmitis requiring intraocular infections of antibiotics given by ophthalmology. Possible sepsis with acute toxic metabolic encephalopathy 12/20 Ophthalmology note: Recommend obtain AC tap for ID along with injection of antibiotics to control intraocular growth of infection, in the right eye. Treatment: 12/17 12/20 0.9NS 75cchr; 12/17 Ceftriaxone 2gm 50mls@ 100mlshr IVPB x 1; 12/17 12/20 Ceftriaxone 2gm 50mls@100mls/hr IVPB Q24H; 12/20 Vancomycin HCI 500mg/Ceftazidime 1gm x1; 12/20 Vigamox one drop Right Eye TID x 21 doses; 12/21 12/28 Cefazolin 50mls @ 100cc/hr IVPB Q8H Definition of Present on Admission (POA): A diagnosis present at the time the order for admission to inpatient status was written. Please clarify if the Sepsis: [ x ] Y = Yes, Sepsis was present at the time of the order for inpatient admission. [ ] N = No, Sepsis was not present at the time of the order for inpatient admission. [ ] W = Clinically undetermined if the condition was present at the time of the order for inpatient admission. [ ] Sepsis ruled out (Template Last Revised: November 2020) MTDD
--- NOTE | 2024-01-12 14:53 | CDI ---
Documentation Clarification Form Date: 01/12/2024 02:46:35 PM From: Tiana Roque Phone: [phone] Admit Date: 12/17/2023 11:04:00 PM Patient Name: Ashley Lang Visit Number: [id number] Discharge Date: 12/29/2023 06:03:00 PM ATTENTION: The Clinical Documentation Specialists (CDI) and [facility] Coding Staff appreciate your assistance in clarifying documentation. Please respond to the clarification below the line at the bottom and electronically sign. The CDI & [facility] Coding staff will review the response and follow-up if needed. Please note: Queries are made part of the Legal Health Record. If you have any questions, please contact the author of this message via ITS. Dr. Yee Harding Sepsis POA is documented in the query, 01/03. Additional clarification is requested. History/Risk Factors: 78-year-old female presents to the ED with increased weakness unable to get out of bed with some slurred speech.Medical history: OA, Glaucoma, Bilateral Cataract Eye surgery 11/30/2023with Ahmed valve placement in the right eye, She was last seen in the office on 13 December for post operative follow up and was doing well without any infection, and a low IOP.She apparently has a long standing history of advanced glaucoma and is still currently using glaucoma drops in the left.12/16 H P and 12/20 Ophthalmology consult. Clinical Indicators: VSS, B/P 130/70; HR 53; Temp 96.9 F Oral; RR 18; SpO2 98% ra LABS, 12/16: Wbc 3.8, Neutrophils 2.9, UA appearance Cloudy; Blood moderate; Nitrate Positive; Leukocyte esterase Large; Wbc 31; Bacteria Many Brain CT, 12/16: No acute intracranial abnormality.Atrophy and chronic microvascular ischemic white matter changes. 12/20, Pulmonology note: Recurrent urinary tract infections patient is receiving Rocephin empirically. Pulmonology, 12/21 thru d/c date: Acute altered mental status, improving most likely secondary to acute metabolic encephalopathy, possible CVA.Acute endophthalmitis requiring intraocular infections of antibiotics given by ophthalmology.Possible sepsis with acute toxic metabolic encephalopathy 12/20 Ophthalmology note: Recommend obtain AC tap for ID along with injection of antibiotics to control intraocular growth of infection, in the right eye. Treatment: Treatment: 4/12 4/15 0.9NS 75cchr; 12/17 Ceftriaxone 2gm 50mls@ 100mlshr IVPB x 1; 12/17 12/20 Ceftriaxone 2gm 50mls@100mls/hr IVPB Q24H; 12/20 Vancomycin HCI 500mg/Ceftazidime 1gm x1; 12/20 Vigamox one drop Right Eye TID x 21 doses; 12/21 12/28 Cefazolin 50mls @ 100cc/hr IVPB Q8H Consults above: Pulmonology and Ophthalmology Can you please clarify Sepsis due to? [ ] Sepsis due to endophthalmitis from recent eye surgery [ x ] Sepsis due to UTI [ ] Other, please specify [ ] Unable to determine (Template Last Revised: November 2020) MTDD
== END 2023-12-29 18:03 | DRG 853 ==
LOC: EC 19:39 → 5NMEDONC 23:04 → 3SCARD 12-18 05:31 → 2SICU 12-20 12:42 → 3SCARD 12-24 17:17 → 4SSUR 12-27 13:11
PROVIDERS: ADMIT Hospitalist; ATTEND Hospitalist
PROC: 5A09557 Assistance with Respiratory Ventilation, Greater than 96 Consecutive Hours, Continuous Positive Airway Pressure (ICD-10-PCS; 2023-12-20)
PROC: 089230Z Drainage of Right Anterior Chamber with Drainage Device, Percutaneous Approach (ICD-10-PCS; principal; 2023-12-21)
PROC: 4A10X4Z Monitoring of Central Nervous Electrical Activity, External Approach (ICD-10-PCS; 2023-12-22)
DX: A41.9 Sepsis, unspecified organism (principal); G92.8 Other toxic encephalopathy; R65.21 Severe sepsis with septic shock; G93.41 Metabolic encephalopathy; N39.0 Urinary tract infection, site not specified; H44.001 Unspecified purulent endophthalmitis, right eye; N17.9 Acute kidney failure, unspecified; D61.818 Other pancytopenia; L03.115 Cellulitis of right lower limb; L03.116 Cellulitis of left lower limb; E87.1 Hypo-osmolality and hyponatremia; M19.90 Unspecified osteoarthritis, unspecified site; R60.0 Localized edema; Z68.39 Body mass index [BMI] 39.0-39.9, adult; I48.0 Paroxysmal atrial fibrillation; H40.9 Unspecified glaucoma; Z79.01 Long term (current) use of anticoagulants; Z87.440 Personal history of urinary (tract) infections; E66.9 Obesity, unspecified; Z79.899 Other long term (current) drug therapy; R00.1 Bradycardia, unspecified; I83.009 Varicose veins of unspecified lower extremity with ulcer of unspecified site; E78.5 Hyperlipidemia, unspecified; H26.9 Unspecified cataract; F22 Delusional disorders; H54.7 Unspecified visual loss; H55.09 Other forms of nystagmus; I11.0 Hypertensive heart disease with heart failure; I44.0 Atrioventricular block, first degree; I50.9 Heart failure, unspecified; R29.810 Facial weakness; Z96.1 Presence of intraocular lens; Z98.42 Cataract extraction status, left eye; Z98.41 Cataract extraction status, right eye; Z96.653 Presence of artificial knee joint, bilateral; Z96.643 Presence of artificial hip joint, bilateral; Z98.51 Tubal ligation status; I89.0 Lymphedema, not elsewhere classified
CPT/HCPCS: 36415; 36600; 70450; 70496; 70498; 71045; 71046; 80048; 80053; 80074; 80177; 81001; 82550; 82607; 82728; 82746; 82805; 83036; 83540; 83550; 83605; 83883; 84145; 84165; 84439; 84443; 84484; 85025; 85384; 85610; 85730; 86140; 86334; 87040; 87070; 87075; 87205; 87390; 87636; 93005; 93306; 94660; 94760; 95816; 99285

== ENCOUNTER 2024-02-04 13:23 | Emergency (ER) | payer MEDICARE, OTHER ==
--- NOTE | 2024-02-04 13:58 | ED ---
Fall HPI - General Chief Complaint: Fall Stated Complaint: Fall Time Seen by Provider: 02/04/24 13:35 Source: patient, EMS, RN notes reviewed Mode of arrival: EMS Limitations: no limitations - History of Present Illness Initial Comments: This is a 78-year-old female presents emergency department for a fall. Patient tripped over a litter box and fell, hitting her head and injuring the left knee. She is on Eliquis. Denies any loss of consciousness. Patient has a large open wound to the left knee. Tetanus vaccine is up-to-date. Denies any substantial pain associated with this. MD Complaint: fall - Related Data Home Medications Medication Instructions Recorded Confirmed Brimonidine Tartrate [Alphagan P 1 drop RIGHT EYE BID 01/27/23 12/18/23 0.2% Ophth Soln] Fluorometholone 0.1% Ophth Megan 1 drop LEFT EYE BID 01/27/23 12/18/23 [Fml] Furosemide [Lasix] 40 mg PO DAILY 07/08/23 12/18/23 Albuterol Inhaler [Ventolin Hfa 1 - 2 puff INHALATION RT-TID PRN 08/30/23 12/18/23 Inhaler] Losartan [Cozaar] 25 mg PO DAILY 08/30/23 12/18/23 Omeprazole 20 mg PO AC-BRKFST 08/30/23 12/18/23 Dorzolamide-Timol 2.23%/0.68% 1 drop LEFT EYE BID 12/18/23 12/18/23 [Cosopt] Latanoprost Ophth [Xalatan 0.005%] 1 drop LEFT EYE BID 12/18/23 12/18/23 prednisoLONE ACETATE 1% OPHTH 1 drop RIGHT EYE QID 12/18/23 12/18/23 [Pred Forte 1%] Previous Rx's Medication Instructions Recorded Apixaban [Eliquis] 5 mg PO BID tab 07/15/23 Atorvastatin [Lipitor] 40 mg PO DAILY tab 07/15/23 Metoprolol Succinate (ER) [Toprol 25 mg PO DAILY tab 07/15/23 XL] cefUROXime axetiL [Ceftin] 500 mg PO BID 3 Days #6 tab 12/29/23 Cephalexin [Keflex] 500 mg PO Q6HR 7 Days #28 cap 02/04/24 Allergies Allergy/AdvReac Type Severity Reaction Status Date / Time amoxicillin [From Augmentin] Allergy Rash/Hives Verified 02/04/24 14:18 clavulanic acid Allergy Rash/Hives Verified 02/04/24 14:18 [From Augmentin] Review of Systems ROS Statement: Those systems with pertinent positive or pertinent negative responses have been documented in the HPI. ROS Other: All systems not noted in ROS Statement are negative. Past Medical History Past Medical History: Atrial Fibrillation, Eye Disorder, Osteoarthritis (OA), Vascular Disorder Additional Past Medical History / Comment(s): lower leg edema History of Any Multi-Drug Resistant Organisms: None Reported Past Surgical History: Appendectomy, Joint Replacement, Tubal Ligation Additional Past Surgical History / Comment(s): madeline hip and knees total replacement; cat sx with lens implants both eyes, surgery for glaucoma Past Anesthesia/Blood Transfusion Reactions: No Reported Reaction Past Psychological History: No Psychological Hx Reported Smoking Status: Never smoker Past Alcohol Use History: None Reported Past Drug Use History: None Reported - Past Family History Father Additional Family Medical History / Comment(s): PASSED OF OLD AGE per patient Mother Additional Family Medical History / Comment(s): PASSED OF OLD AGE per patient General Exam Limitations: no limitations General appearance: alert, in no apparent distress Head exam: Present: atraumatic, normocephalic, normal inspection Eye exam: Present: normal appearance, PERRL, EOMI. Absent: scleral icterus, conjunctival injection, periorbital swelling Respiratory exam: Present: normal lung sounds bilaterally. Absent: respiratory distress, wheezes, rales, rhonchi, stridor Cardiovascular Exam: Present: regular rate, normal rhythm, normal heart sounds. Absent: systolic murmur, diastolic murmur, rubs, gallop, clicks Extremities exam: Present: other (Large open wound to the proximal tib-fib with active bleeding and visible subcutaneous tissue.) Neurological exam: Present: alert, oriented X3, CN II-XII intact Psychiatric exam: Present: normal affect, normal mood Course Vital Signs 02/04/24 02/04/24 02/04/24 13:30 16:00 18:53 Temperature 97.8 F 98.1 F 97.8 F Pulse Rate 64 67 65 Respiratory 18 18 18 Rate Blood Pressure 167/79 161/87 159/89 O2 Sat by Pulse 99 99 99 Oximetry 02/04/24 19:19 Temperature 97.3 F L Pulse Rate 65 Respiratory 18 Rate Blood Pressure 151/85 O2 Sat by Pulse 99 Oximetry Procedures - Laceration Laceration #1 Consent Obtained: verbal consent Indication: laceration Site: lower extremity Size (cm): 10 Description: stellate, flap, avulsion Depth: simple, single layer Anesthetic Used: lidocaine 1%, with epi Anesthesia Technique: local infiltration Amount (mls): 10 Pre-repair: wound explored, irrigated extensively Type of Sutures: nylon Size of Sutures: 3-0 Number of Sutures: 39 Technique: simple, interrupted Medical Decision Making - Medical Decision Making This is a 78-year-old female who presents to the emergency department for a fall. Was pt. sent in by a medical professional or institution? @ -No Did you speak to anyone other than the patient for history? @ -No Did you review nursing and triage notes? @ -Yes, and I agree, it is accurate with regards to the patient's symptoms. Were old charts reviewed? @ -No Differential Diagnosis? @ -Differential Diagnosis Head Injury: Contusion, hematoma, intracranial hemorrhage, skull fracture, whiplash, concussion, this is not meant to be an all-inclusive list. EKG interpreted by me (3pts min.)? @ -Not obtained X-rays interpreted by me (1pt min.)? @ -X-ray of the left shoulder, left knee, and left tib-fib obtained. My interpretation identifies no acute fractures. CT interpreted by me (1pt min.)? @ -Computed tomography scan of the brain and c-spine obtained. My interpretation identifies no evidence of an acute intracranial hemorrhage, skull fracture, or cervical spine fracture. U/S interpreted by me (1pt. min.)? @ -Not obtained What testing was considered but not performed? (CT, X-rays, U/S, labs)? Why? @ -None What meds were considered but not given? Why? @ -None Did you discuss the management of the patient with other professionals? @ -No Did you reconcile home meds? @ -No Was smoking cessation discussed for >3mins.? @ -No Was critical care preformed (if so, how long)? @ -No Were there social determinants of health that impacted care today? How? (Homelessness, low income, unemployed, alcoholism, drug addiction, transportation, low edu. Level, literacy, decrease access to med. care, prison, rehab)? @ -No Was there de-escalation of care discussed even if they declined? (Discuss DNR or withdrawal of care, Hospice)? @ -No What co-morbidities impacted this encounter? (DM, HTN, Smoking, COPD, CAD, Cancer, CVA, Hep., AIDS, mental health diagnosis, sleep apnea, morbid obesity)? @ -Lymphedema Was patient admitted / discharged? @ -Discharged. CT scan of the brain and C-spine obtained revealing no acute process. X-ray of the left knee, left tib-fib, and left shoulder obtained revealing no acute fractures. There is noted to be a subcutaneous zone of soft tissue emphysema, which was secondary to large laceration. The laceration was irrigated extensively and repaired with sutures. Patient's tetanus vaccine is up-to-date. She was given 2 g of Kefzol in the emergency department, and given the depth, patient was started on Keflex prophylactically. She was given very strict return parameters, given that this was so deep and near the joint. She is advised to look for any signs of infection and return immediately if they were to occur. Also instructed to return in 10 to 14 days for suture removal. Undiagnosed new problem with uncertain prognosis? @ -None Drug Therapy requiring intensive monitoring for toxicity (Heparin, Nitro, Insulin, Cardizem)? @ -None Were any procedures done? @ -Laceration repair with sutures Diagnosis/symptom? @ -Fall, head injury, left knee injury, laceration Acute, or Chronic, or Acute on Chronic? @ -Acute Uncomplicated (without systemic symptoms) or Complicated (systemic symptoms)? @ -Uncomplicated Side effects of treatment? @ -None Exacerbation, Progression, or Severe Exacerbation] @ -Not applicable Poses a threat to life or bodily function? @ -No Return precautions reviewed in depth, the patient is instructed to return to the emergency department with any new, worsening, or concerning symptoms. Patient verbalized understanding. This case was discussed in detail with the attending ED physician, Dr. Garcia. Presentation, findings, and treatment plan discussed in detail as well. - Radiology Data Radiology results: report reviewed, image reviewed Disposition Clinical Impression: Fall, Head injury, Laceration, Left knee injury Disposition: HOME SELF-CARE Instructions (If sedation given, give patient instructions): Care For Your Stitches (ED), Fall Prevention for Older Adults (ED) Additional Instructions: Return to the emergency department with any new, worsening, or concerning symptoms and in 10-14 days for removal of the stitches. Take the antibiotic as prescribed for 7 days. Take Tylenol as needed for pain relief. Follow up with your primary care provider in 1-2 days. Prescriptions: Cephalexin [Keflex] 500 mg PO Q6HR 7 Days #28 cap Is patient prescribed a controlled substance at d/c from ED?: No Referrals: Maye Scruggs MD [Primary Care Provider] - 1-2 days Time of Disposition: 17:41
[2024-02-04 14:01] VITALS: RESP 18
[2024-02-04] MEDS: LIDOCAINE 1%-EPI 1:100,000 20 ML VIAL SQ STA (14:14)
[2024-02-04] MEDS: SODIUM CHLORIDE 0.9% 500 ML 500 ML IV STA (14:14)
[2024-02-04] MEDS: MORPHINE SULFATE 2 MG/ML SYRINGE IVP STA (14:14)
--- NOTE | 2024-02-04 15:48 | CT ---
EXAMINATION TYPE: CT brain hemantine wo con DATE OF EXAM: 02/04/2024 COMPARISON: 12/24/2023 HISTORY: pain after fall. pt on blood thinners CT DLP: 1465.6 mGycm, Automated exposure control for dose reduction was used. CONTRAST: Patient injected with 0 mL of Isovue 300. CT of the brain is performed utilizing 3 mm thick sections through the posterior fossa and 3 mm thick sections through the remaining calvarium. Study is performed within 24 hours of arrival to the hospital. No abnormal hyperdensity is present to suggest an acute intracranial hemorrhage. No mass lesion is evident. No acute infarcts are evident. Periventricular white matter hypodensity likely on the basis of chron ic white matter ischemic changes. Ventricles and sulci are appropriate for the patient age. Paranasal sinuses and mastoid air cells within the [id number] are clear. IMPRESSIONS: 1. No acute intracranial process radiographic appearance. Follow-up MRI can be performed as clinicall y indicated. CT cervical spine. COMPARISON: None CT of the cervical spine is performed in the axial plane at 2 mm thick sections. Reconstructed image s in the coronal, and sagittal plane are reviewed on the computer. No acute fractures are evident. There is slight kyphosis centered at C4 There is loss of disc height at the cervical spine. Greatest narrowing is C4-5. Vertebral body heights are preserved. No spinal canal stenosis is evident. Moderate to severe foraminal stenosis present. This is most severe at C4-5 on the left. IMPRESSION: 1. Kyphosis with degenerative disc changes greatest at C4-5. 2. Foraminal narrowing most severe on the left at C4.
--- NOTE | 2024-02-04 17:32 | XR ---
PROCEDURES: XR knee complete LT XR tibia fibula LT DATE AND TIME: 02/04/2024 5:21 PM CLINICAL INDICATION: PHH; Fall TECHNIQUE: Department protocol COMPARISON: None FINDINGS / IMPRESSION: Right Knee/Right Tibia-Fibula Total 6 views were obtained. Soft Tissues: Soft tissue show a 3 x 1.5 cm subcutaneous zone of soft tissue emphysema, projecting anterior to the tibial tuberosity on the lateral view. The underlying tibial tuberosity has normal appearance. Also on the lateral views is chronic-appearing soft tissue swelling projecting anterior to the tibial shaft, with numerous associated tiny ossifications consistent with chronicity. Skeletal structures: The TKR components are intact without periprosthesis lucencies. There is no acute fracture/malalignment. No focal osseous lesions.
--- NOTE | 2024-02-04 17:34 | XR ---
PROCEDURE: XR shoulder complete LT - 3V DATE AND TIME: 02/04/2024 5:25 PM CLINICAL INDICATION: PHH; Fall TECHNIQUE: Department protocol COMPARISON: None FINDINGS/ IMPRESSION: No acute soft tissue findings. No acute fracture/malalignment. No focal osseous lesions. Moderate osteoarthrosis changes at the acromioclavicular joint and [id number] at the glenohumer al joint.
[2024-02-04] MEDS: ACET/COD 300 MG/30 MG STARTER PACK 6 TAB BTL PO STA (19:14)
[2024-02-04 19:33] VITALS: BP 151/85; PULSE 65
[2024-02-04 19:34] VITALS: TEMP 97.3
== END 2024-02-04 19:27 | disposition home or self-care (01) ==
LOC: EC 13:23
DX: S81.012A Laceration without foreign body, left knee, initial encounter (principal); S09.90XA Unspecified injury of head, initial encounter; I89.0 Lymphedema, not elsewhere classified; Z88.0 Allergy status to penicillin; Z88.1 Allergy status to other antibiotic agents; Z79.01 Long term (current) use of anticoagulants; W01.0XXA Fall on same level from slipping, tripping and stumbling without subsequent striking against object, initial encounter
CPT/HCPCS: 73030; 73590; 73562; 72125; 70450; 12004; 99284; 96365; 96366 ×4; 96375; J0690; J2270

== ENCOUNTER 2024-02-18 11:30 | Inpatient (IN) | payer MEDICARE, OTHER ==
[2024-02-18 12:04] LABS: Anisocytosis Slight; Basophils % (A) 0 %; Eosinophils % (A) 0 %; HCT 26.7 % (34.0-46.0); HGB 8.4 gm/dL (11.4-16.0); Hypochromasia Slight; Lymphocytes # (A) 1.1 k/uL (1.0-4.8); Lymphocytes % (A) 17 %; MCH 30.5 pg (25.0-35.0); MCHC 31.5 g/dL (31.0-37.0); MCV 96.8 fL (80.0-100.0); Mean Platelet Volume 8.3; Monocytes # (A) 0.4 k/uL (0-1.0); Monocytes % (A) 6 %; Neutrophils # (A) 4.7 k/uL (1.3-7.7); Neutrophils % (A) 76 %; Platelet Count 216 k/uL (150-450); RBC 2.76 m/uL (3.80-5.40); RDW 16.3 % (11.5-15.5); WBC 6.2 k/uL (3.8-10.6)
--- NOTE | 2024-02-18 12:09 | ED ---
Extremity Problem HPI - General Chief complaint: Wound/Laceration Stated complaint: L leg stitch rem/poss infection Time Seen by Provider: 02/18/24 11:31 Source: patient, family, RN notes reviewed Mode of arrival: wheelchair Limitations: no limitations - History of Present Illness Initial comments: This is a 78-year-old female who presents to the emergency department for concerns of a left leg infection. Patient was evaluated here for a fall on 02/03 and she had multiple sutures placed in the left leg. She denies any pain with this, but her daughter states that she has had overlying skin changes and she is concerned about the development of infection. She is currently taking Keflex. Denies any fevers or chills. Additionally, she had a urinalysis done at her primary care provider's office on 02/04 and states that they received a call saying that it grew VRE and inquired about antibiotic adjustments. Patient denies any urinary symptoms, however her daughter states that she is very prone to UTIs. - Related Data Home Medications Medication Instructions Recorded Confirmed Brimonidine Tartrate [Alphagan P 1 drop LEFT EYE BID 01/27/23 02/18/24 0.2% Ophth Soln] Furosemide [Lasix] 40 mg PO DAILY 07/08/23 02/18/24 Losartan [Cozaar] 25 mg PO DAILY 08/30/23 02/18/24 Omeprazole 20 mg PO AC-BRKFST 08/30/23 02/18/24 Dorzolamide-Timol 2.23%/0.68% 1 drop LEFT EYE BID 12/18/23 02/18/24 [Cosopt] Latanoprost Ophth [Xalatan 0.005%] 1 drop LEFT EYE HS 12/18/23 02/18/24 prednisoLONE ACETATE 1% OPHTH 1 drop RIGHT EYE QID 12/18/23 02/18/24 [Pred Forte 1%] Ammonium Lactate Lotion 1 applic TOPICAL BID 02/18/24 02/18/24 [Lac-Hydrin 12% Lotion] Ferrous Sulfate [Feosol] 325 mg PO DAILY 02/18/24 02/18/24 Moxifloxacin HCl [Moxifloxacin 1 drop RIGHT EYE QID 02/18/24 02/18/24 0.5%] Nystatin 100,000 Unit/gm Powd 1 applic TOPICAL BID 02/18/24 02/18/24 [Mycostatin Powder] Previous Rx's Medication Instructions Recorded Apixaban [Eliquis] 5 mg PO BID tab 07/15/23 Atorvastatin [Lipitor] 40 mg PO DAILY tab 07/15/23 Metoprolol Succinate (ER) [Toprol 25 mg PO DAILY tab 07/15/23 XL] Allergies Allergy/AdvReac Type Severity Reaction Status Date / Time amoxicillin [From Augmentin] Allergy Rash/Hives Verified 02/18/24 16:58 clavulanic acid Allergy Rash/Hives Verified 02/18/24 16:58 [From Augmentin] Review of Systems ROS Statement: Those systems with pertinent positive or pertinent negative responses have been documented in the HPI. ROS Other: All systems not noted in ROS Statement are negative. Past Medical History Past Medical History: Atrial Fibrillation, Eye Disorder, Osteoarthritis (OA), Vascular Disorder Additional Past Medical History / Comment(s): lower leg edema History of Any Multi-Drug Resistant Organisms: VRE Past Surgical History: Appendectomy, Joint Replacement, Tubal Ligation Additional Past Surgical History / Comment(s): madeline hip and knees total replace ment; cat sx with lens implants both eyes, surgery for glaucoma Past Anesthesia/Blood Transfusion Reactions: No Reported Reaction Past Psychological History: No Psychological Hx Reported Smoking Status: Never smoker Past Alcohol Use History: None Reported Past Drug Use History: None Reported - Past Family History Father Additional Family Medical History / Comment(s): PASSED OF OLD AGE per patient Mother Additional Family Medical History / Comment(s): PASSED OF OLD AGE per patient General Exam Limitations: no limitations General appearance: alert, in no apparent distress Head exam: Present: atraumatic, normocephalic, normal inspection Respiratory exam: Present: normal lung sounds bilaterally. Absent: respiratory distress, wheezes, rales, rhonchi, stridor Cardiovascular Exam: Present: regular rate, normal rhythm, normal heart sounds. Absent: systolic murmur, diastolic murmur, rubs, gallop, clicks Extremities exam: Present: other (Healing laceration to the left lower extremity with active serous drainage, erythema, tenderness, and warmth) Neurological exam: Present: alert, oriented X3, CN II-XII intact Psychiatric exam: Present: normal affect, normal mood Course Vital Signs 02/18/24 02/18/24 02/18/24 11:34 16:20 17:25 Temperature 97.3 F L 97.4 F L 97.6 F Pulse Rate 76 74 74 Respiratory 16 17 16 Rate Blood Pressure 120/67 120/85 120/75 O2 Sat by Pulse 97 97 97 Oximetry Medical Decision Making - Medical Decision Making This is a 78 year old female who presents to the emergency department for a left leg wound. Was pt. sent in by a medical professional or institution? @ -No Did you speak to anyone other than the patient for history? @ -No Did you review nursing and triage notes? @ -Yes, and I agree, it is accurate with regards to the patient's symptoms. Were old charts reviewed? @ -Urine culture faxed to the emergency department with urine obtained on 02/04 that was positive for VRE. Macrobid was shown to be susceptible. Differential Diagnosis? @ -Differential Leg Wound: Cellulitis, abscess, insect bite, burn, this is not meant to be an all-inclusive list. EKG interpreted by me (3pts min.)? @ -Not obtained X-rays interpreted by me (1pt min.)? @ -X-ray of the left knee and tib-fib obtained. My interpretation identifies no acute fractures CT interpreted by me (1pt min.)? @ -Not obtained U/S interpreted by me (1pt. min.)? @ -Not obtained What testing was considered but not performed? (CT, X-rays, U/S, labs)? Why? @ -None What meds were considered but not given? Why? @ -None Did you discuss the management of the patient with other professionals? @ -Yes, Dr. Harding, who accepts the patient for admission. Did you reconcile home meds? @ -No Was smoking cessation discussed for >3mins.? @ -No Was critical care preformed (if so, how long)? @ -No Were there social determinants of health that impacted care today? How? (Homelessness, low income, unemployed, alcoholism, drug addiction, transportation, low edu. Level, literacy, decrease access to med. care, halfway, rehab)? @ -No Was there de-escalation of care discussed even if they declined? (Discuss DNR or withdrawal of care, Hospice)? @ -No What co-morbidities impacted this encounter? (DM, HTN, Smoking, COPD, CAD, Cancer, CVA, Hep., AIDS, mental health diagnosis, sleep apnea, morbid obesity)? @ -Vascular disorder, leg edema Was patient admitted / discharged? @ -Admitted. Lab work demonstrates an elevated CRP of 6.5 and was otherwise unremarkable. X-ray of the left knee and tib-fib obtained revealing no acute process. While blood work and imaging are fairly unremarkable, the wound itself does have surrounding erythema, warmth, and tenderness. The concern is how close in proximity it is to her artificial knee joint and she is already taking Keflex. Some of this may be part of the normal healing process, however advised that we do not want her to progress to the point of prosthetic joint infection. Sutures were removed and aerobic and anaerobic wound cultures were obtained. Additionally, patient had urine culture results faxed over from 02/04 which returned positive for VRE. This did show that Macrobid would be susceptible. In the event that the VRE is also positive elsewhere she was started on daptomycin as opposed to vancomycin in conjunction with cefepime for the cellulitis and Macrobid was ordered for the VRE associated UTI. Repeat urinalysis was ordered with results pending at the time of admission. Blood cultures obtained as well. Patient admitted to medicine for left lower extremity cellulitis and positive VRE culture. Consult placed for infectious disease. Undiagnosed new problem with uncertain prognosis? @ -None Drug Therapy requiring intensive monitoring for toxicity (Heparin, Nitro, Insulin, Cardizem)? @ -None Were any procedures done? @ -None Diagnosis/symptom? @ -Left lower extremity cellulitis, positive VRE culture Acute, or Chronic, or Acute on Chronic? @ -Acute Uncomplicated (without systemic symptoms) or Complicated (systemic symptoms)? @ -Uncomplicated Side effects of treatment? @ -None Exacerbation, Progression, or Severe Exacerbation] @ -Not applicable Poses a threat to life or bodily function? @ -Yes This case was discussed in detail with the attending ED physician, Dr. Valdez. Presentation, findings, and treatment plan discussed in detail as well. - Lab Data Result diagrams: 02/18/24 11:48 02/18/24 11:48 Lab Results 02/18/24 02/18/24 02/18/24 Range/Units 11:48 11:48 11:48 WBC 6.2 (3.8-10.6) k/uL RBC 2.76 L (3.80-5.40) m/uL Hgb 8.4 L (11.4-16.0) gm/dL Hct 26.7 L (34.0-46.0) % MCV 96.8 (80.0-100.0) fL MCH 30.5 (25.0-35.0) pg MCHC 31.5 (31.0-37.0) g/dL RDW 16.3 H (11.5-15.5) % Plt Count 216 (150-450) k/uL MPV 8.3 Neutrophils % 76 % Lymphocytes % 17 % Monocytes % 6 % Eosinophils % 0 % Basophils % 0 % Neutrophils # 4.7 (1.3-7.7) k/uL Lymphocytes # 1.1 (1.0-4.8) k/uL Monocytes # 0.4 (0-1.0) k/uL Eosinophils # 0.0 (0-0.7) k/uL Basophils # 0.0 (0-0.2) k/uL Hypochromasia Slight Anisocytosis Slight ESR >130 H (0-30) mm/Hr Sodium 139 (137-145) mmol/L Potassium 4.7 (3.5-5.1) mmol/L Chloride 110 H (98-107) mmol/L Carbon Dioxide 20 L (22-30) mmol/L Anion Gap 9 mmol/L BUN 42 H (7-17) mg/dL Creatinine 1.02 (0.52-1.04) mg/dL Est GFR (CKD-EPI)AfAm 61 (>60 ml/min/1.73 sqM) Est GFR (CKD-EPI)NonAf 53 (>60 ml/min/1.73 sqM) Glucose 92 (74-99) mg/dL Plasma Lactic Acid Shailesh 0.6 L (0.7-2.0) mmol/L Calcium 8.8 (8.4-10.2) mg/dL Total Bilirubin 0.4 (0.2-1.3) mg/dL AST 41 H (14-36) U/L ALT 44 H (4-34) U/L Alkaline Phosphatase 174 H (38-126) U/L C-Reactive Protein 6.5 H (<1.0) mg/dL Total Protein 6.7 (6.3-8.2) g/dL Albumin 3.5 (3.5-5.0) g/dL - Radiology Data Radiology results: report reviewed, image reviewed Disposition Clinical Impression: Cellulitis of left leg, VRE (vancomycin resistant enterococcus) culture positive Disposition: ADMITTED IP TO THIS HOSP
[2024-02-18 12:27] LABS: ALT 44 U/L (4-34); AST 41 U/L (14-36); African American GFR (CKD) 61 (>60 ml/min/1.73 sqM); Albumin 3.5 g/dL (3.5-5.0); Alkaline Phosphatase 174 U/L (38-126); Anion Gap 9 mmol/L; Blood Urea Nitrogen 42 mg/dL (7-17); C Reactive Protein 6.5 mg/dL (<1.0); Calcium 8.8 mg/dL (8.4-10.2); Carbon Dioxide 20 mmol/L (22-30); Chloride 110 mmol/L (98-107); Glucose 92 mg/dL (74-99); Non-African American GFR(CKD) 53 (>60 ml/min/1.73 sqM); Potassium 4.7 mmol/L (3.5-5.1); Sodium 139 mmol/L (137-145); Total Bilirubin 0.4 mg/dL (0.2-1.3); Total Protein 6.7 g/dL (6.3-8.2)
--- NOTE | 2024-02-18 13:42 | XR ---
EXAMINATION TYPE: XR knee complete LT DATE OF EXAM: 02/18/2024 CLINICAL HISTORY: pain TECHNIQUE: Three views of the left knee are obtained. COMPARISON: None. FINDINGS: There is no acute fracture/dislocation. Total knee arthroplasty is in place. The overlying soft tissue appears unremarkable. IMPRESSION: There is no acute fracture or dislocation ICD 10 NO FRACTURE, INITIAL EVALUATION
--- NOTE | 2024-02-18 13:42 | XR ---
EXAMINATION TYPE: XR tibia fibula LT DATE OF EXAM: 02/18/2024 CLINICAL HISTORY: pain TECHNIQUE: AP and lateral images of the left tibia and fibula are obtained. COMPARISON: None. FINDINGS: There is no acute fracture/dislocation evident. The joint spaces appear within normal campos its. The overlying soft tissue appears unremarkable. IMPRESSION: There is no acute fracture or dislocation seen. ICD 10 NO FRACTURE, INITIAL EVALUATION
[2024-02-18] MEDS ORDERED: VANCOMYCIN IV PER PHARMACY 1 EACH MISC MISCELLANE PRN (15:55)
[2024-02-18] MEDS ORDERED: CEFEPIME 2 GM in SODIUM CHLORIDE 0.9% 100 ML IVPB SCH (16:00)
[2024-02-18] MEDS ORDERED: HYDROcodone/APAP 5-325MG 1 EACH TAB PO PRN (16:11)
[2024-02-18] MEDS ORDERED: MORPHINE SULFATE 4 MG/ML SYRINGE IV PRN (16:11)
[2024-02-18] MEDS ORDERED: NALOXONE 0.4 MG/ML 1 ML VIAL IV PRN (16:11)
[2024-02-18] MEDS ORDERED: ONDANSETRON 4 MG/2 ML VIAL IVP PRN (16:11)
[2024-02-18] MEDS: CEFEPIME 2 GM in SODIUM CHLORIDE 0.9% 100 ML IVPB SCH (16:23)
[2024-02-18] MEDS ORDERED: VANCOMYCIN 1,750 MG in SODIUM CHLORIDE 0.9% 500 ML 500 ML IVPB SCH (17:00)
[2024-02-18 19:10] LABS: Erythrocyte Sedimentation Rate >130 mm/Hr (0-30)
[2024-02-18] MEDS: AMMONIUM LACTATE 12% LOTION 225 GM BTL TOPICAL SCH (22:24)
[2024-02-18] MEDS: MOXIFLOXACIN HCL 0.5% DROPS 3 ML BTL RIGHT EYE SCH (22:24)
[2024-02-18] MEDS: BRIMONIDINE TARTRATE 0.2% DROPS 5 ML BTL LEFT EYE SCH (22:25)
[2024-02-18] MEDS: prednisoLONE ACETATE 1% OPHTH DROPS 5 ML BTL RIGHT EYE SCH (22:27)
[2024-02-18] MEDS: LATANOPROST 0.005% OPHTH DROPS 2.5 ML BTL LEFT EYE SCH (22:28)
[2024-02-18] MEDS: DORZOLAMIDE-TIMOLOL 2.23%/0.68 10ML BTL LEFT EYE SCH (22:29)
[2024-02-18] MEDS: APIXABAN 5 MG TAB PO SCH (22:31)
[2024-02-18] MEDS: NYSTATIN 100,000 UNIT/GM POWD 15 GM TOPICAL SCH (22:31)
[2024-02-18] MEDS: NITROFURANTOIN MONOHYD/M-CRYST 100 MG CAP PO SCH (22:35)
[2024-02-18 23:16] LABS: Appearance,Urine Clear (Clear); Bilirubin,Urine Negative (Negative); Blood,Urine Negative (Negative); Color,Urine Colorless; Glucose,Urine (UA) Negative (Negative); Ketones,Urine Negative (Negative); Leukocyte Esterase,Urine Large (Negative); Mucus,Urine Rare /hpf; Nitrite,Urine Negative (Negative); PH, Urine 5.5 (5.0-8.0); Protein,Urine Negative (Negative); RBC,Urine 1 /hpf (0-5); Specific Gravity,Urine 1.014 (1.001-1.035); Squamous Epithelial Cell,Urine 1 /hpf (0-4); Urobilinogen,Urine <2.0 mg/dL (<2.0); WBC,Urine 32 /hpf (0-5)
[2024-02-19] MEDS: FUROSEMIDE 40 MG TAB PO SCH (08:28)
[2024-02-19] MEDS: FERROUS SULFATE 325 MG TAB PO SCH (08:28)
[2024-02-19] MEDS: PANTOPRAZOLE 40 MG TABLET PO SCH (08:28)
[2024-02-19] MEDS: ATORVASTATIN 40 MG TAB PO SCH (08:28)
[2024-02-19] MEDS: METOPROLOL SUCCINATE (ER) 25 MG TAB.ER.24H PO SCH (08:28)
[2024-02-19] MEDS: LOSARTAN 25 MG TAB PO SCH (08:28)
[2024-02-19] MEDS: PANTOPRAZOLE 40 MG/10 ML VIAL IV SCH (08:36)
[2024-02-19] MEDS: ACETAMINOPHEN TAB 325 MG TAB PO PRN (21:06)
--- NOTE | 2024-02-19 22:30 | P.CONS ---
History of Present Illness - Reason for Consult Consult date: 02/19/24 - History of Present Illness Patient is a 78-year-old female with a past medical history significant for atrial fibrillation osteoarthritis lower extremity edema patient has been sent to the ER concerning for left leg infection apparently the patient did have a fall on 02/04/2024 and did have multiple sutures placed in the left leg patient noticed to having discoloration skin necrosis as well as swelling and redness concerning for wound infection for the patient was advised to go to the hospital apparently the patient has been taking oral Keflex for right and did not have any improvement patient also having some urinary symptoms and apparently the patient did have a urine culture done by the PCP on 02/05/2024 that grew VRE with the symptoms the patient has been advised to go to the hospital on arrival to the ER patient was afebrile and no fever has been recorded subsequently patient was not tachycardic hypotensive or hypoxic patient did have a white count of 6.2 creatinine 1.02 liver enzymes mildly elevated urine is positive cultures obtained from the left leg as well as blood culture patient was started on daptomycin and cefepime infectious disease was consulted for further management of antibiotic therapy patient denies high-grade fever or any chills she is breathing comfortably no chest pain shortness with or cough no worsening pain to the lower extremity or any foul-smelling drainage Past Medical History Past Medical History: Atrial Fibrillation, Eye Disorder, Osteoarthritis (OA), Vascular Disorder Additional Past Medical History / Comment(s): lower leg edema History of Any Multi-Drug Resistant Organisms: VRE Year Discovered:: 02/05/2024 MDRO Source:: blood culture Past Surgical History: Appendectomy, Joint Replacement, Tubal Ligation Additional Past Surgical History / Comment(s): madeline hip and knees total replacement; cat sx with lens implants both eyes, surgery for glaucoma Past Anesthesia/Blood Transfusion Reactions: No Reported Reaction Past Psychological History: No Psychological Hx Reported Smoking Status: Never smoker Past Alcohol Use History: None Reported Past Drug Use History: None Reported - Past Family History Father Additional Family Medical History / Comment(s): PASSED OF OLD AGE per patient Mother Additional Family Medical History / Comment(s): PASSED OF OLD AGE per patient Medications and Allergies Home Medications Medication Instructions Recorded Confirmed Type Brimonidine Tartrate [Alphagan P 1 drop LEFT EYE BID 01/27/23 02/18/24 History 0.2% Ophth Soln] Furosemide [Lasix] 40 mg PO DAILY 07/08/23 02/18/24 History Apixaban [Eliquis] 5 mg PO BID tab 07/15/23 02/18/24 Rx Atorvastatin [Lipitor] 40 mg PO DAILY tab 07/15/23 02/18/24 Rx Metoprolol Succinate (ER) [Toprol 25 mg PO DAILY tab 07/15/23 02/18/24 Rx XL] Losartan [Cozaar] 25 mg PO DAILY 08/30/23 02/18/24 History Omeprazole 20 mg PO AC-BRKFST 08/30/23 02/18/24 History Dorzolamide-Timol 2.23%/0.68% 1 drop LEFT EYE BID 12/18/23 02/18/24 History [Cosopt] Latanoprost Ophth [Xalatan 0.005%] 1 drop LEFT EYE HS 12/18/23 02/18/24 History prednisoLONE ACETATE 1% OPHTH 1 drop RIGHT EYE QID 12/18/23 02/18/24 History [Pred Forte 1%] Ammonium Lactate Lotion 1 applic TOPICAL BID 02/18/24 02/18/24 History [Lac-Hydrin 12% Lotion] Ferrous Sulfate [Feosol] 325 mg PO DAILY 02/18/24 02/18/24 History Moxifloxacin HCl [Moxifloxacin 1 drop RIGHT EYE QID 02/18/24 02/18/24 History 0.5%] Nystatin 100,000 Unit/gm Powd 1 applic TOPICAL BID 02/18/24 02/18/24 History [Mycostatin Powder] Allergies Allergy/AdvReac Type Severity Reaction Status Date / Time amoxicillin [From Augmentin] Allergy Rash/Hives Verified 02/18/24 16:58 clavulanic acid Allergy Rash/Hives Verified 02/18/24 16:58 [From Augmentin] Physical Exam Vitals: Vital Signs Temp Pulse Pulse Resp BP BP Pulse Ox 02/19/24 02:00 70 20 123/67 98 02/18/24 18:33 70 17 145/72 96 02/18/24 17:25 97.6 F 74 16 120/75 97 02/18/24 16:20 97.4 F L 74 17 120/85 97 02/18/24 11:34 97.3 F L 76 16 120/67 97 Intake and Output 02/18/24 02/18/24 02/19/24 14:59 22:59 06:59 Output Total 160 270 Balance -160 -270 Output: Urine 160 270 Other: Weight 104.78 kg 104.78 kg Results CBC & Chem 7: 02/18/24 11:48 02/18/24 11:48 Labs: Abnormal Lab Results - Last 24 Hours (Table) 02/18/24 02/18/24 02/18/24 Range/Units 11:48 11:48 11:48 RBC 2.76 L (3.80-5.40) m/uL Hgb 8.4 L (11.4-16.0) gm/dL Hct 26.7 L (34.0-46.0) % RDW 16.3 H (11.5-15.5) % ESR >130 H (0-30) mm/Hr Chloride 110 H (98-107) mmol/L Carbon Dioxide 20 L (22-30) mmol/L BUN 42 H (7-17) mg/dL Plasma Lactic Acid Shailesh 0.6 L (0.7-2.0) mmol/L AST 41 H (14-36) U/L ALT 44 H (4-34) U/L Alkaline Phosphatase 174 H (38-126) U/L C-Reactive Protein 6.5 H (<1.0) mg/dL Ur Leukocyte Esterase (Negative) Urine WBC (0-5) /hpf Urine Mucus (None) /hpf 02/18/24 Range/Units 22:55 RBC (3.80-5.40) m/uL Hgb (11.4-16.0) gm/dL Hct (34.0-46.0) % RDW (11.5-15.5) % ESR (0-30) mm/Hr Chloride (98-107) mmol/L Carbon Dioxide (22-30) mmol/L BUN (7-17) mg/dL Plasma Lactic Acid Shailesh (0.7-2.0) mmol/L AST (14-36) U/L ALT (4-34) U/L Alkaline Phosphatase (38-126) U/L C-Reactive Protein (<1.0) mg/dL Ur Leukocyte Esterase Large H (Negative) Urine WBC 32 H (0-5) /hpf Urine Mucus Rare H (None) /hpf Assessment and Plan Plan: This is a telehealth visit 1patient with the recent fall with laceration to the left leg that has been stitched up within the hospital some skin necrosis and cellulitis likely from gram-positive skin yogesh from leg infection not entirely excluded. 2patient with recent urine culture done outpatient grew VRE did have a mildly positive UA. 3patient with a penicillin allergy that would limit the number of antibiotics safe to use. 4patient has been advised daptomycin and cefepime while waiting for the repeat cultures to be finalized we will follow on clinical condition and cultures to further adjust medication if needed Thank you for this consultation we will follow the patient along with you Dictation was produced using [employer] dictation software. please excuse any grammatical, word or spelling errors. Time with Patient: Greater than 30
--- NOTE | 2024-02-19 23:16 | P.HPIM ---
History of Present Illness H&P Date: 02/19/24 Chief Complaint: Wound infection Patient is a 78-year-old female with a past medical history of atrial fibrillation on anticoagulation with Eliquis, osteoarthritis, vascular disease bilateral hip and knee total replacement presents to ER with complaints of left leg infection. Patient had a fall on 02/04/2024 currently and multiple sutures placed on the left leg. Patient noticed discoloration of the skin and necrosis as well as swelling and redness and concerning for wound infection. Patient otherwise denies any pain but her daughter states that she has been having ov erlying skin changes. She is currently taking Keflex at home. Denies any fever or chills. Patient had urine culture done on 02/04/2021 at her primary care physician's office showing VRE and inquired about her antibiotic choices. Patient's daughter states that she is very prone to getting AVM infections. On admission x-ray of the knees showed no acute dislocation or fracture. X-ray tibia-fibula showed no acute fracture or dislocation. Laboratory test showed WBC 6.2 hemoglobin 8.4 and platelets 216. Sodium 139 potassium 4.7 chloride 110 bicarb is 20 BUN 42 and creatinine 1.02 and blood sugar 92 AST 41 ALT 44 and alk phos 174 and CRP 6.5. Urinalysis showed large leukocyte esterase with 3 WBCs. Review of Systems Constitutional: Patient denies any fever or chills . No generalized weakness or weight loss. Abdomen: Patient denied nausea vomiting and diarrhea and abdominal pain. Cardiovascular: Patient denies any chest pain or short of breath no palpitations . Respiratory: patient denied any cough or sputum production. No shortness of breath Neurologic: Patient denied any numbness or tingling. no headache. Musculoskeletal: Patient denies any complaints of joint swelling or deformity. Skin: Negative Psychiatric: Negative Endocrine: No heat or cold intolerance. No recent weight gain. Genitourinary: No dysuria or hematuria. All other 14 point ROS negative except the above Past Medical History Past Medical History: Atrial Fibrillation, Eye Disorder, Osteoarthritis (OA), Vascular Disorder Additional Past Medical History / Comment(s): lower leg edema History of Any Multi-Drug Resistant Organisms: VRE Date of last positivie culture/infection: 02/05/2024 MDRO Source:: blood culture Past Surgical History: Appendectomy, Joint Replacement, Tubal Ligation Additional Past Surgical History / Comment(s): madeline hip and knees total replacement; cat sx with lens implants both eyes, surgery for glaucoma Past Anesthesia/Blood Transfusion Reactions: No Reported Reaction Past Psychological History: No Psychological Hx Reported Smoking Status: Never smoker Past Alcohol Use History: None Reported Past Drug Use History: None Reported - Past Family History Father Additional Family Medical History / Comment(s): PASSED OF OLD AGE per patient Mother Additional Family Medical History / Comment(s): PASSED OF OLD AGE per patient Medications and Allergies Home Medications Medication Instructions Recorded Confirmed Type Brimonidine Tartrate [Alphagan P 1 drop LEFT EYE BID 01/27/23 02/18/24 History 0.2% Ophth Soln] Furosemide [Lasix] 40 mg PO DAILY 07/08/23 02/18/24 History Apixaban [Eliquis] 5 mg PO BID tab 07/15/23 02/18/24 Rx Atorvastatin [Lipitor] 40 mg PO DAILY tab 07/15/23 02/18/24 Rx Metoprolol Succinate (ER) [Toprol 25 mg PO DAILY tab 07/15/23 02/18/24 Rx XL] Losartan [Cozaar] 25 mg PO DAILY 08/30/23 02/18/24 History Omeprazole 20 mg PO AC-BRKFST 08/30/23 02/18/24 History Dorzolamide-Timol 2.23%/0.68% 1 drop LEFT EYE BID 12/18/23 02/18/24 History [Cosopt] Latanoprost Ophth [Xalatan 0.005%] 1 drop LEFT EYE HS 12/18/23 02/18/24 History prednisoLONE ACETATE 1% OPHTH 1 drop RIGHT EYE QID 12/18/23 02/18/24 History [Pred Forte 1%] Ammonium Lactate Lotion 1 applic TOPICAL BID 02/18/24 02/18/24 History [Lac-Hydrin 12% Lotion] Ferrous Sulfate [Feosol] 325 mg PO DAILY 02/18/24 02/18/24 History Moxifloxacin HCl [Moxifloxacin 1 drop RIGHT EYE QID 02/18/24 02/18/24 History 0.5%] Nystatin 100,000 Unit/gm Powd 1 applic TOPICAL BID 02/18/24 02/18/24 History [Mycostatin Powder] Allergies Allergy/AdvReac Type Severity Reaction Status Date / Time amoxicillin [From Augmentin] Allergy Rash/Hives Verified 02/18/24 16:58 clavulanic acid Allergy Rash/Hives Verified 02/18/24 16:58 [From Augmentin] Physical Exam Vitals: Vital Signs Temp Pulse Pulse Resp BP BP Pulse Ox 02/19/24 07:25 97.6 F 79 17 150/87 96 02/19/24 02:00 70 20 123/67 98 02/18/24 18:33 70 17 145/72 96 02/18/24 17:25 97.6 F 74 16 120/75 97 02/18/24 16:20 97.4 F L 74 17 120/85 97 02/18/24 11:34 97.3 F L 76 16 120/67 97 Intake and Output 02/18/24 02/19/24 02/19/24 22:59 06:59 14:59 Output Total 160 270 Balance -160 -270 Output: Urine 160 270 Other: Weight 104.78 kg PHYSICAL EXAMINATION: Patient is sitting in the chair, no acute distress, awake alert and oriented.. HEENT: Normocephalic. Neck is supple. Pupils reactive. Nostrils clear. Oral cavity is moist. Neck reveals no JVD, carotid bruits, or thyromegaly. CHEST EXAMINATION: Trachea is central. Symmetrical expansion. Lung cabrera clear to auscultation and percussion. CARDIAC: Normal S1, S2 with no gallops. No murmurs ABDOMEN: Soft. Bowel sounds normal. No organomegaly. No abdominal bruits. Extremities: reveal no edema. Left lower extremity wound is rapid. No clubbing or cyanosis Neurologically awake, alert, oriented x3 with well-coordinated movements. No focal deficits noted Skin: No rash or skin lesions. Psychiatric: Coperative. Nonsuicidal Musculoskeletal: No joint swelling or deformity. Normal range of motion. Results CBC & Chem 7: 02/18/24 11:48 02/18/24 11:48 Labs: Abnormal Lab Results - Last 24 Hours (Table) 02/18/24 02/18/24 02/18/24 Range/Units 11:48 11:48 11:48 RBC 2.76 L (3.80-5.40) m/uL Hgb 8.4 L (11.4-16.0) gm/dL Hct 26.7 L (34.0-46.0) % RDW 16.3 H (11.5-15.5) % ESR >130 H (0-30) mm/Hr Chloride 110 H (98-107) mmol/L Carbon Dioxide 20 L (22-30) mmol/L BUN 42 H (7-17) mg/dL Plasma Lactic Acid Shailesh 0.6 L (0.7-2.0) mmol/L AST 41 H (14-36) U/L ALT 44 H (4-34) U/L Alkaline Phosphatase 174 H (38-126) U/L C-Reactive Protein 6.5 H (<1.0) mg/dL Ur Leukocyte Esterase (Negative) Urine WBC (0-5) /hpf Urine Mucus (None) /hpf 02/18/24 Range/Units 22:55 RBC (3.80-5.40) m/uL Hgb (11.4-16.0) gm/dL Hct (34.0-46.0) % RDW (11.5-15.5) % ESR (0-30) mm/Hr Chloride (98-107) mmol/L Carbon Dioxide (22-30) mmol/L BUN (7-17) mg/dL Plasma Lactic Acid Shailesh (0.7-2.0) mmol/L AST (14-36) U/L ALT (4-34) U/L Alkaline Phosphatase (38-126) U/L C-Reactive Protein (<1.0) mg/dL Ur Leukocyte Esterase Large H (Negative) Urine WBC 32 H (0-5) /hpf Urine Mucus Rare H (None) /hpf Microbiology - Last 24 Hours (Table) 02/18/24 11:42 Gram Stain - Preliminary Leg - Left Thrombosis Risk Factor Assmnt - DVT/VTE Prophylaxis DVT/VTE Prophylaxis: Pharmacologic Prophylaxis ordered - Choose All That Apply Any of the Below Risk Factors Present?: Yes Each Factor Represents 1 point: Obesity (BMI >25) Thrombosis Risk Factor Assessment Total Risk Factor Score: 1 Thrombosis Risk Factor Assessment Level: Low Risk Assessment and Plan Assessment: Left lower extremity wound infection. Patient had lacerated wound on 02/04/2024 and currently outpatient antibiotic course with Keflex. VRE urinary tract infection. Patient had urine cultures done at PCPs office recently on 02/05/2024 showed VRE. Patient is allergic to penicillin. Atrial fibrillation paroxysmal on anticoagulation with Eliquis Osteoarthritis History of bilateral hip and knee started replacement. Glaucoma DVT prophylaxis patient is already on anticoagulation with Eliquis Plan: Patient is being continued on antibiotics with cefepime and daptomycin.. Follow-up wound cultures and urine cultures. Blood cultures primarily showed no growth. Current with home medications including anticoagulation with Eliquis. Follow-up closely. ID consult. Time with Patient: Greater than 30
[2024-02-20 07:50] LABS: Anisocytosis Slight; Basophils % (A) 0 %; Eosinophils % (A) 1 %; HCT 25.3 % (34.0-46.0); HGB 7.8 gm/dL (11.4-16.0); Hypochromasia Slight; Lymphocytes % (A) 20 %; MCH 30.1 pg (25.0-35.0); MCHC 30.8 g/dL (31.0-37.0); MCV 97.9 fL (80.0-100.0); Mean Platelet Volume 8.8; Monocytes # (A) 0.4 k/uL (0-1.0); Monocytes % (A) 7 %; Neutrophils # (A) 3.6 k/uL (1.3-7.7); Neutrophils % (A) 70 %; Platelet Count 202 k/uL (150-450); RBC 2.58 m/uL (3.80-5.40); RDW 16.1 % (11.5-15.5); WBC 5.1 k/uL (3.8-10.6)
[2024-02-20 08:02] LABS: African American GFR (CKD) 59 (>60 ml/min/1.73 sqM); Anion Gap 5 mmol/L; Blood Urea Nitrogen 34 mg/dL (7-17); Calcium 8.8 mg/dL (8.4-10.2); Carbon Dioxide 23 mmol/L (22-30); Chloride 111 mmol/L (98-107); Glucose 86 mg/dL (74-99); Non-African American GFR(CKD) 51 (>60 ml/min/1.73 sqM); Potassium 4.8 mmol/L (3.5-5.1); Sodium 139 mmol/L (137-145)
--- NOTE | 2024-02-20 15:41 | P.PN ---
Subjective Progress Note Date: 02/20/24 Principal diagnosis: Reason for follow-up is left lower extremity wound cellulitis and UTI Patient is a 78-year-old female with a past medical history significant for atrial fibrillation osteoarthritis lower extremity edema patient has been sent to the ER concerning for left leg infection apparently the patient did have a fall on 02/04/2024 and did have multiple sutures placed in the left leg patient noticed to having discoloration skin necrosis as well as swelling and redness concerning for wound infection and also have outpatient urine culture positive for VRE. On today's evaluation that is 02/20/2024,the patient denies any fever or any chills, patient is breathing comfortably on room air, the patient denies chest pain shortness of breath and no significant cough, patient denies abdominal pain, no nausea vomiting or diarrhea. Patient has no worsening pain to the left lower extremity morning. Patient white count is 5.1, creatinine 1.04 local culture growing Pseudomonas and present MRSA Objective - Vital Signs Vital signs: Vital Signs Temp 97.7 F 02/20/24 07:44 Pulse 83 02/20/24 07:44 Resp 19 02/20/24 07:44 BP 149/73 02/20/24 07:44 Pulse Ox 96 02/20/24 07:44 FiO2 Intake & Output 02/19/24 02/20/24 02/20/24 18:59 06:59 18:59 Output Total 2049 1899 1800 Balance -2049 -1899 -1799 Output: Urine 2049 1899 1800 Other: Voiding Method External Catheter - Exam GENERAL DESCRIPTION: An elderly female lying in bed in no distress RESPIRATORY SYSTEM: Unlabored breathing , decreased breath sounds at bases HEART: S1 S2 regular rate and rhythm , ABDOMEN: Soft , no tenderness EXTREMITIES: Left leg wound is currently dressed - Labs CBC & Chem 7: 02/20/24 07:24 02/20/24 07:24 Labs: Abnormal Lab Results - Last 24 Hours (Table) 02/20/24 02/20/24 Range/Units 07: 07:24 RBC 2.58 L (3.80-5.40) m/uL Hgb 7.8 L (11.4-16.0) gm/dL Hct 25.3 L (34.0-46.0) % MCHC 30.8 L (31.0-37.0) g/dL RDW 16.1 H (11.5-15.5) % Chloride 111 H (98-107) mmol/L BUN 34 H (7-17) mg/dL Microbiology - Last 24 Hours (Table) 02/18/24 11:42 Anaerobic Culture - Preliminary Leg - Left 02/18/24 22:55 Urine Culture - Final Urine,Voided Barbara albicans 02/18/24 11:42 Gram Stain - Preliminary Leg - Left Wound Culture - Preliminary Pseudomonas aeruginosa Presumptive MRSA 02/18/24 15:55 Blood Culture - Preliminary Blood 02/18/24 16:10 Blood Culture - Preliminary Blood Assessment and Plan (1) Cellulitis of left leg Current Visit: Yes Status: Acute Code(s): L03.116 - CELLULITIS OF LEFT LOWER LIMB SNOMED Code(s): 90115997051245857 (2) Urinary tract infection Current Visit: No Status: Acute Code(s): N39.0 - URINARY TRACT INFECTION, SITE NOT SPECIFIED SNOMED Code(s): 71631304 Plan: 1patient with the recent fall with laceration to the left leg that has been stitched up within the hospital some skin necrosis and cellulitis likely from g lety-positive skin yogesh from leg infection not entirely excluded. 2patient with recent urine culture done outpatient grew VRE did have a mildly positive UA with urine cultures currently pending. 3patient with a penicillin allergy that would limit the number of antibiotics safe to use. 4patient left leg culture growing MRSA and Pseudomonas aeruginosa for the patient is covered with daptomycin and cefepime to continue we will reevaluate the leg wound tomorrow Dictation was produced using [employer] dictation software. please excuse any grammatical, word or spelling errors. Time with Patient: Less than 30
--- NOTE | 2024-02-21 13:56 | P.PN ---
Subjective Progress Note Date: 02/21/24 Principal diagnosis: Reason for follow-up is left lower extremity wound cellulitis and UTI Patient is a 78-year-old female with a past medical history significant for atrial fibrillation osteoarthritis lower extremity edema patient has been sent to the ER concerning for left leg infection apparently the patient did have a fall on 02/04/2024 and did have multiple sutures placed in the left leg patient noticed to having discoloration skin necrosis as well as swelling and redness concerning for wound infection and also have outpatient urine culture positive for VRE. On today's evaluation that is 02/21/2024,the patient remains to be afebrile, patient is on room air not requiring supplemental oxygen and denies any shortness of breath no chest pain or cough.Patient denies having any nausea or vomiting, no abdominal pain and no diarrhea has been reported, denies any worsening pain to the left lower extremity 1. No new labs has been obtained today cultures currently growing Pseudomonas and present MRSA urine is growing Barbara Objective - Vital Signs Vital signs: Vital Signs Temp 97.5 F L 02/21/24 07:27 Pulse 76 02/21/24 08:00 Resp 19 02/21/24 08:00 BP 147/84 02/21/24 07:27 Pulse Ox 96 02/21/24 07:27 FiO2 Intake & Output 02/20/24 02/21/24 02/21/24 18:59 06:59 18:59 Output Total 3200 600 400 Balance -3200 -600 -400 Output: Urine 3200 600 400 Other: Voiding Method External Catheter External Catheter External Catheter # Bowel Movements 1 - Exam GENERAL DESCRIPTION: An elderly female lying in bed in no distress RESPIRATORY SYSTEM: Unlabored breathing , decreased breath sounds at bases HEART: S1 S2 regular rate and rhythm , ABDOMEN: Soft , no tenderness EXTREMITIES: Left leg wound with some skin necrosis no foul-smelling drainage - Labs CBC & Chem 7: 02/20/24 07:24 02/20/24 07:24 Labs: Microbiology - Last 24 Hours (Table) 02/18/24 15:55 Blood Culture - Preliminary Blood 02/18/24 16:10 Blood Culture - Preliminary Blood 02/18/24 11:42 Anaerobic Culture - Preliminary Leg - Left 02/18/24 22:55 Urine Culture - Final Urine,Voided Barbara albicans Assessment and Plan (1) Cellulitis of left leg Current Visit: Yes Status: Acute Code(s): L03.116 - CELLULITIS OF LEFT LOWER LIMB SNOMED Code(s): 85292835417121177 (2) Urinary tract infection Current Visit: No Status: Acute Code(s): N39.0 - URINARY TRACT INFECTION, SITE NOT SPECIFIED SNOMED Code(s): 33094778 Plan: 1patient with the recent fall with laceration to the left leg that has been stitched up within the hospital some skin necrosis and cellulitis likely from gram-positive skin yogesh from leg infection not entirely excluded. 2patient with recent urine culture done outpatient grew VRE did have a mildly positive UA with urine cultures currently growing yeast Rico has been changed 3patient with a penicillin allergy that would limit the number of antibiotics safe to use. 4patient left leg culture growing MRSA and Pseudomonas aeruginosa for the patient is covered with daptomycin and cefepime , we will get a vascular study evaluation for debridement of the necrotic skin 5urine is growing yeast we will add Diflucan and repeat UA Dictation was produced using [employer] dictation software. please excuse any grammatical, word or spelling errors. Time with Patient: Greater than 30
[2024-02-21] MEDS: FLUCONAZOLE 100 MG TAB PO SCH (15:16)
[2024-02-21] MEDS: LIDOCAINE 1% INJ 10MG/ML (20 ML MDV) ONE (16:39)
[2024-02-21] MEDS: LIDOCAINE 1% PF 10 MG/ML (5 ML AMP) SQ ONE (16:39)
--- NOTE | 2024-02-21 16:41 | P.GSCN ---
History of Present Illness History of present illness: 78-year-old white female patient had history of mid the 30th at that time the patient had a position on the left lower extremity which was sutured patient has a skin necrosis with flap necrosis of the wound with discharge noted consulted for wound debridement and deep culture. Medical history history of atrial fibrillation on Eliquis Personal history allergic to penicillin Chest examination chest is clear good entry both lung. Second sound present Abdomen soft nontender Vascular femorals are 1+ patient has a wound on the left lower extremity below the knee joint measurement is 6 x 4 cm Plan is debridement of the wound with deep culture Past Medical History Past Medical History: Atrial Fibrillation, Eye Disorder, Osteoarthritis (OA), V ascular Disorder Additional Past Medical History / Comment(s): lower leg edema History of Any Multi-Drug Resistant Organisms: VRE Year Discovered:: 02/05/2024 MDRO Source:: blood culture Past Surgical History: Appendectomy, Joint Replacement, Tubal Ligation Additional Past Surgical History / Comment(s): madeline hip and knees total replacement; cat sx with lens implants both eyes, surgery for glaucoma Past Anesthesia/Blood Transfusion Reactions: No Reported Reaction Past Psychological History: No Psychological Hx Reported Smoking Status: Never smoker Past Alcohol Use History: None Reported Past Drug Use History: None Reported - Past Family History Father Additional Family Medical History / Comment(s): PASSED OF OLD AGE per patient Mother Additional Family Medical History / Comment(s): PASSED OF OLD AGE per patient Medications and Allergies Home Medications Medication Instructions Recorded Confirmed Type Brimonidine Tartrate [Alphagan P 1 drop LEFT EYE BID 01/27/23 02/18/24 History 0.2% Ophth Soln] Furosemide [Lasix] 40 mg PO DAILY 07/08/23 02/18/24 History Apixaban [Eliquis] 5 mg PO BID tab 07/15/23 02/18/24 Rx Atorvastatin [Lipitor] 40 mg PO DAILY tab 07/15/23 02/18/24 Rx Metoprolol Succinate (ER) [Toprol 25 mg PO DAILY tab 07/15/23 02/18/24 Rx XL] Losartan [Cozaar] 25 mg PO DAILY 08/30/23 02/18/24 History Omeprazole 20 mg PO AC-BRKFST 08/30/23 02/18/24 History Dorzolamide-Timol 2.23%/0.68% 1 drop LEFT EYE BID 12/18/23 02/18/24 History [Cosopt] Latanoprost Ophth [Xalatan 0.005%] 1 drop LEFT EYE HS 12/18/23 02/18/24 History prednisoLONE ACETATE 1% OPHTH 1 drop RIGHT EYE QID 12/18/23 02/18/24 History [Pred Forte 1%] Ammonium Lactate Lotion 1 applic TOPICAL BID 02/18/24 02/18/24 History [Lac-Hydrin 12% Lotion] Ferrous Sulfate [Feosol] 325 mg PO DAILY 02/18/24 02/18/24 History Moxifloxacin HCl [Moxifloxacin 1 drop RIGHT EYE QID 02/18/24 02/18/24 History 0.5%] Nystatin 100,000 Unit/gm Powd 1 applic TOPICAL BID 02/18/24 02/18/24 History [Mycostatin Powder] Allergies Allergy/AdvReac Type Severity Reaction Status Date / Time amoxicillin [From Augmentin] Allergy Rash/Hives Verified 02/18/24 16:58 clavulanic acid Allergy Rash/Hives Verified 02/18/24 16:58 [From Augmentin] Surgical - Exam Vital Signs Temp Pulse Resp BP Pulse Ox 97.3 F L 76 16 120/67 97 02/18/24 11:34 02/18/24 11:34 02/18/24 11:34 02/18/24 11:34 02/18/24 11:34 Results - Labs 02/20/24 07:24 02/20/24 07:24 Microbiology - Last 24 Hours (Table) 02/18/24 11:42 Gram Stain - Final Leg - Left Wound Culture - Final Pseudomonas aeruginosa Methicillin resist S. aureus 02/18/24 15:55 Blood Culture - Preliminary Blood 02/18/24 16:10 Blood Culture - Preliminary Blood 02/18/24 11:42 Anaerobic Culture - Preliminary Leg - Left 02/18/24 22:55 Urine Culture - Final Urine,Voided Barbara albicans
--- NOTE | 2024-02-21 16:44 | P.PCN ---
Description of Procedure: Preop diagnosis is infected wound left lower extremity measurement is 6 x 4 cm with flap necrosis and some drainage drainage Postoperative diagnosis is the same measurement is 6 x 4 x 0.5 cm Procedure left leg was prepped and draped in Prestel manner 1% lidocaine for infiltrated. Incision was made and controlled skin fat down into subcu tissue all the necrotic skin and deep tissue was excised with sharp knife which was sent for deep culture bleeding points were controlled wound was irrigated with saline Medihoney gel applied to the wound dressing applied patient tolerated the procedure tissue was sent for deep culture patient tarted the procedure well dressing will be changed on daily basis using Medihoney gel
[2024-02-21 17:15] LABS: Appearance,Urine Clear (Clear); Bilirubin,Urine Negative (Negative); Blood,Urine Negative (Negative); Color,Urine Colorless; Glucose,Urine (UA) Negative (Negative); Ketones,Urine Negative (Negative); Leukocyte Esterase,Urine Negative (Negative); Nitrite,Urine Negative (Negative); Protein,Urine Negative (Negative); Specific Gravity,Urine 1.006 (1.001-1.035); Urobilinogen,Urine <2.0 mg/dL (<2.0)
--- NOTE | 2024-02-22 00:24 | P.PN ---
Subjective Progress Note Date: 02/20/24 Patient is a 78-year-old female with a past medical history of atrial fibrillation on anticoagulation with Eliquis, osteoarthritis, vascular disease bilateral hip and knee total replacement presents to ER with complaints of left leg infection. Patient had a fall on 02/04/2024 currently and multiple sutures placed on the left leg. Patient noticed discoloration of the skin and necrosis as well as swelling and redness and concerning for wound infection. Patient otherwise denies any pain but her daughter states that she has been having overlying skin changes. She is currently taking Keflex at home. Denies any fever or chills. Patient had urine culture done on 02/04/2021 at her primary care physician's office showing VRE and inquired about her antibiotic choices. Patient's daughter states that she is very prone to getting AVM infections. On admission x-ray of the knees showed no acute dislocation or fracture. X-ray tibia-fibula showed no acute fracture or dislocation. Laboratory test showed WBC 6.2 hemoglobin 8.4 and platelets 216. Sodium 139 potassium 4.7 chloride 110 bicarb is 20 BUN 42 and creatinine 1.02 and blood sugar 92 AST 41 ALT 44 and alk phos 174 and CRP 6.5. Urinalysis showed large leukocyte esterase with 3 WBCs. 02/20/2024 Patient is currently sitting in a chair. Awake alert and oriented x 3. On room air. No complaints of chest pain. No complaints of leg pain left lower extremity wound is wrapped with. No complaints of pain. Still having leg swelling. Laboratory test showed WBC 5.1 hemoglobin 7.8 and platelets 202 sodium 139 potassium 4.8 chloride 101 bicarb is 23 BUN 34 creatinine 1.04 and blood sugar 86. Patient remains on antibiotics cefepime and daptomycin. ID is on board. Objective - Vital Signs Vital signs: Vital Signs Temp 97.7 F 02/20/24 19:49 Pulse 96 02/20/24 19:49 Resp 18 02/20/24 19:49 BP 137/68 02/20/24 19:49 Pulse Ox 96 02/20/24 19:49 FiO2 Intake & Output 02/20/24 02/20/24 02/21/24 06:59 18:59 06:59 Output Total 1900 3200 Balance -1900 -3200 Output: Urine 1900 3200 Other: Voiding Method External Catheter External Catheter - Exam PHYSICAL EXAMINATION: Patient is sitting in the chair, no acute distress, awake alert and oriented.. HEENT: Normocephalic. Neck is supple. Pupils reactive. Nostrils clear. Oral cavity is moist. Neck reveals no JVD, carotid bruits, or thyromegaly. CHEST EXAMINATION: Trachea is central. Symmetrical expansion. Lung cabrera clear to auscultation and percussion. CARDIAC: Normal S1, S2 with no gallops. No murmurs ABDOMEN: Soft. Bowel sounds normal. No organomegaly. No abdominal bruits. Extremities: reveal no edema. Left lower extremity wound is rapid. No clubbing or cyanosis Neurologically awake, alert, oriented x3 with well-coordinated movements. No focal deficits noted Skin: No rash or skin lesions. Psychiatric: Coperative. Nonsuicidal Musculoskeletal: No joint swelling or deformity. Normal range of motion. - Labs CBC & Chem 7: 02/20/24 07:24 02/20/24 07:24 Labs: Abnormal Lab Results - Last 24 Hours (Table) 02/20/24 02/20/24 Range/Units 07:24 07:24 RBC 2.58 L (3.80-5.40) m/uL Hgb 7.8 L (11.4-16.0) gm/dL Hct 25.3 L (34.0-46.0) % MCHC 30.8 L (31.0-37.0) g/dL RDW 16.1 H (11.5-15.5) % Chloride 111 H (98-107) mmol/L BUN 34 H (7-17) mg/dL Microbiology - Last 24 Hours (Table) 02/18/24 15:55 Blood Culture - Preliminary Blood 02/18/24 16:10 Blood Culture - Preliminary Blood 02/18/24 11:42 Anaerobic Culture - Preliminary Leg - Left 02/18/24 22:55 Urine Culture - Final Urine,Voided Barbara albicans 02/18/24 11:42 Gram Stain - Preliminary Leg - Left Wound Culture - Preliminary Pseudomonas aeruginosa Presumptive MRSA Assessment and Plan Assessment: Left lower extremity wound infection. Patient had lacerated wound on 02/04/2024 and currently outpatient antibiotic course with Keflex. VRE urinary tract infection. Patient had urine cultures done at PCPs office recently on 02/05/2024 showed VRE. Patient is allergic to penicillin. Atrial fibrillation paroxysmal on anticoagulation with Eliquis Osteoarthritis History of bilateral hip and knee started replacement. Glaucoma DVT prophylaxis patient is already on anticoagulation with Eliquis Plan: Patient is being continued on antibiotics with cefepime and daptomycin.. Follow-up wound cultures and urine cultures. Blood cultures primarily showed no growth. Current with home medications including anticoagulation with Eliquis. Follow-up closely. ID is on board. Vascular surgery consult for possible debridement. Continue with wound care.
--- NOTE | 2024-02-22 00:26 | P.PN ---
Subjective Progress Note Date: 02/21/24 Patient is a 78-year-old female with a past medical history of atrial fibrillation on anticoagulation with Eliquis, osteoarthritis, vascular disease bilateral hip and knee total replacement presents to ER with complaints of left leg infection. Patient had a fall on 02/04/2024 currently and multiple sutures placed on the left leg. Patient noticed discoloration of the skin and necrosis as well as swelling and redness and concerning for wound infection. Patient otherwise denies any pain but her daughter states that she has been having overlying skin changes. She is currently taking Keflex at home. Denies any fever or chills. Patient had urine culture done on 02/04/2021 at her primary care physician's office showing VRE and inquired about her antibiotic choices. Patient's daughter states that she is very prone to getting AVM infections. On admission x-ray of the knees showed no acute dislocation or fracture. X-ray tibia-fibula showed no acute fracture or dislocation. Laboratory test showed WBC 6.2 hemoglobin 8.4 and platelets 216. Sodium 139 potassium 4.7 chloride 110 bicarb is 20 BUN 42 and creatinine 1.02 and blood sugar 92 AST 41 ALT 44 and alk phos 174 and CRP 6.5. Urinalysis showed large leukocyte esterase with 3 WBCs. 02/20/2024 Patient is currently sitting in a chair. Awake alert and oriented x 3. On room air. No complaints of chest pain. No complaints of leg pain left lower extremity wound is wrapped with. No complaints of pain. Still having leg swelling. Laboratory test showed WBC 5.1 hemoglobin 7.8 and platelets 202 sodium 139 potassium 4.8 chloride 101 bicarb is 23 BUN 34 creatinine 1.04 and blood sugar 86. Patient remains on antibiotics cefepime and daptomycin. ID is on board. 02/21/2024 Patient is currently sitting in the chair. Awake alert and oriented x 3. Patient's family member is at bedside. No complaints of chest pain or shortness of breath. Currently on room air. No nausea vomiting abdominal pain or diarrhea. Patient is being continued on antibiotics in the form of daptomycin and cefepime. Left leg is still swollen and rapid. Vascular surgery has seen the patient for problem debridement. And cultures. Laboratory data reviewed. Urine culture showed Barbara albicans. Wound cultures showed Pseudomonas and MRSA. Objective - Vital Signs Vital signs: Vital Signs Temp 97.5 F L 02/21/24 07:27 Pulse 76 02/21/24 07:27 Resp 19 02/21/24 07:27 BP 147/84 02/21/24 07:27 Pulse Ox 96 02/21/24 07:27 FiO2 Intake & Output 02/20/24 02/21/24 02/21/24 18:59 06:59 18:59 Output Total 3200 600 Balance -3200 -600 Output: Urine 3200 600 Other: Voiding Method External Catheter External Catheter - Exam PHYSICAL EXAMINATION: Patient is sitting in the chair, no acute distress, awake alert and oriented.. HEENT: Normocephalic. Neck is supple. Pupils reactive. Nostrils clear. Oral cavity is moist. Neck reveals no JVD, carotid bruits, or thyromegaly. CHEST EXAMINATION: Trachea is central. Symmetrical expansion. Lung cabrera clear to auscultation and percussion. CARDIAC: Normal S1, S2 with no gallops. No murmurs ABDOMEN: Soft. Bowel sounds normal. No organomegaly. No abdominal bruits. Extremities: reveal no edema. Left lower extremity wound is rapid. No clubbing or cyanosis Neurologically awake, alert, oriented x3 with well-coordinated movements. No focal deficits noted Skin: No rash or skin lesions. Psychiatric: Coperative. Nonsuicidal Musculoskeletal: No joint swelling or deformity. Normal range of motion. - Labs CBC & Chem 7: 02/20/24 07:24 02/20/24 07:24 Labs: Microbiology - Last 24 Hours (Table) 02/18/24 15:55 Blood Culture - Preliminary Blood 02/18/24 16:10 Blood Culture - Preliminary Blood 02/18/24 11:42 Anaerobic Culture - Preliminary Leg - Left 02/18/24 22:55 Urine Culture - Final Urine,Voided Barbara albicans 02/18/24 11:42 Gram Stain - Preliminary Leg - Left Wound Culture - Preliminary Pseudomonas aeruginosa Presumptive MRSA Assessment and Plan Assessment: Left lower extremity wound infection. Patient had lacerated wound on 02/04/2024 and currently outpatient antibiotic course with Keflex. VRE urinary tract infection. Patient had urine cultures done at PCPs office recently on 02/05/2024 showed VRE. Patient is allergic to penicillin. Atrial fibrillation paroxysmal on anticoagulation with Eliquis Osteoarthritis History of bilateral hip and knee started replacement. Glaucoma DVT prophylaxis patient is already on anticoagulation with Eliquis Plan: Patient is being continued on antibiotics with cefepime and daptomycin.. Urine culture showed Barbara albicans. Wound culture showed MRSA and Pseudomonas.. Blood cultures primarily showed no growth. Current with home medications including anticoagulation with Eliquis. Follow-up closely. ID is on board. Vascular surgery consult and plan for debridement today. Continue with wound care. Time with Patient: Greater than 30
[2024-02-22 08:35] LABS: Basophils # (A) 0.02 X 10*3/uL (0.00-0.10); Basophils % (A) 0.4 %; Eosinophils # (A) 0.06 X 10*3/uL (0.04-0.35); Eosinophils % (A) 1.1 %; HCT 23.6 % (37.2-46.3); HGB 7.2 g/dL (12.0-15.0); Lymphocytes # (A) 1.26 X 10*3/uL (0.90-5.00); Lymphocytes % (A) 22.6 %; MCH 29.4 pg (27.0-32.0); MCHC 30.5 g/dL (32.0-37.0); MCV 96.3 FL (80.0-97.0); Mean Platelet Volume 10.3 FL (9.5-12.2); Monocytes # (A) 0.48 X 10*3/uL (0.20-1.00); Monocytes % (A) 8.6 %; NRBC Per 100 WBC 0 X 10*3/uL (0.00-0.01); Neutrophils # (A) 3.72 X 10*3/uL (1.80-7.70); Neutrophils % (A) 66.8 %; Platelet Count 170 X 10*3/uL (140-440); RBC 2.45 X 10*6/uL (4.10-5.20); RDW 16.5 % (11.5-14.5); WBC 5.57 X 10*3/uL (4.50-10.00)
[2024-02-22 08:41] LABS: BUN/Creat Ratio 32.09 Ratio (12.00-20.00); Blood Urea Nitrogen 35.3 mg/dL (9.0-27.0); Chloride 107 mmol/L (96-109); Glucose 87 mg/dL (70-110); Potassium 4.8 mmol/L (3.5-5.5); Sodium 140 mmol/L (135-145)
[2024-02-22 08:42] LABS: Calcium 8.6 mg/dL (8.7-10.3)
--- NOTE | 2024-02-22 18:04 | P.PN ---
Subjective Progress Note Date: 02/22/24 Principal diagnosis: Reason for follow-up is left lower extremity wound cellulitis and UTI Patient is a 78-year-old female with a past medical history significant for atrial fibrillation osteoarthritis lower extremity edema patient has been sent to the ER concerning for left leg infection apparently the patient did have a fall on 02/04/2024 and did have multiple sutures placed in the left leg patient noticed to having discoloration skin necrosis as well as swelling and redness concerning for wound infection and also have outpatient urine culture positive for VRE.Patient did have a bedside debridement of the left lower extremity flap necrosis and some drainage has been cultured On today's evaluation that is 02/22/2024, the patient continues to be afebrile, the patient is on room air and breathing comfortably, the Pt denies having any chest pain or cough, the patient denies having any abdominal pain no vomiting or any diarrhea has been reported by the nursing staff and denies any worsening pain to the left lower extremity wound area. Patient white count is 5.57, creatinine is 1 point 1 repeat urine is negative Objective - Vital Signs Vital signs: Vital Signs Temp 97.6 F 02/22/24 07:10 Pulse 69 02/22/24 07:10 Resp 17 02/22/24 07:10 BP 134/81 02/22/24 07:10 Pulse Ox 98 02/22/24 07:10 FiO2 Intake & Output 02/21/24 02/22/24 02/22/24 18:59 06:59 18:59 Intake Total 400 Output Total 1100 600 800 Balance -1100 -600 -400 Intake: Oral 400 Output: Urine 1100 600 800 Other: Voiding Method External Catheter External Catheter External Catheter # Bowel Movements 1 - Exam GENERAL DESCRIPTION: An elderly female lying in bed in no distress RESPIRATORY SYSTEM: Unlabored breathing , decreased breath sounds at bases HEART: S1 S2 regular rate and rhythm , ABDOMEN: Soft , no tenderness EXTREMITIES: Left leg wound currently dressed no drainage on the dressing - Labs CBC & Chem 7: 02/22/24 03:42 02/22/24 03:42 Labs: Abnormal Lab Results - Last 24 Hours (Table) 02/22/24 02/22/24 Range/Units 03:42 03:42 RBC 2.45 L (4.10-5.20) X 10*6/uL Hgb 7.2 L (12.0-15.0) g/dL Hct 23.6 L (37.2-46.3) % MCHC 30.5 L (32.0-37.0) g/dL RDW 16.5 H (11.5-14.5) % BUN 35.3 H (9.0-27.0) mg/dL Est GFR (CKD-EPI) 51 L (>=60) BUN/Creatinine Ratio 32.09 H (12.00-20.00) Ratio Calcium 8.6 L (8.7-10.3) mg/dL Microbiology - Last 24 Hours (Table) 02/18/24 11:42 Anaerobic Culture - Final Leg - Left 02/21/24 14:20 Gram Stain - Preliminary Leg - Left 02/18/24 15:55 Blood Culture - Preliminary Blood 02/18/24 16:10 Blood Culture - Preliminary Blood 02/18/24 11:42 Gram Stain - Final Leg - Left Wound Culture - Final Pseudomonas aeruginosa Methicillin resist S. aureus Assessment and Plan (1) Cellulitis of left leg Current Visit: Yes Status: Acute Code(s): L03.116 - CELLULITIS OF LEFT LOWER LIMB SNOMED Code(s): 82151908542208169 (2) Urinary tract infection Current Visit: No Status: Acute Code(s): N39.0 - URINARY TRACT INFECTION, SITE NOT SPECIFIED SNOMED Code(s): 62043561 Plan: 1patient with the recent fall with laceration to the left leg that has been stitched up within the hospital some skin necrosis and cellulitis likely from gram-positive skin yogesh from leg infection not entirely excluded. 2patient with recent urine culture done outpatient grew VRE did have a mildly positive UA with urine cultures currently growing yeast Rico has been changed 3patient with a penicillin allergy that would limit the number of antibiotics safe to use. 4patient left leg culture growing MRSA and Pseudomonas aeruginosa for the patient is covered with daptomycin and cefepime , patient did have a bedside d ebridement by vascular surgery repeat cultures obtained which are currently pending 5urine is growing yeast which is started Diflucan however with repeat UA negative we will go ahead and discontinue Diflucan Dictation was produced using [employer] dictation software. please excuse any grammatical, word or spelling errors. Time with Patient: Less than 30
--- NOTE | 2024-02-22 22:46 | PN ---
PROGRESS NOTE SUBJECTIVE: This is a 78-year-old pleasant female, the patient has history of fall. The patient with flap necrosis of the skin which was stitched. We did excise devitalized tissue and the skin and we placed Aquacel silver. The patient is growing MRSA under care of Infectious Disease. Today we have changed the dressing. There was some fat necrosis. We removed and excised the fat necrosis and wound was irrigated with saline and we placed Aquacel silver, dressing applied. The patient tolerated the procedure well. The patient has a culture came back as a Pseudomonas and MRSA under care of Infectious Disease. We will change the dressing tomorrow. MMODL / IJN: [id number] /
--- NOTE | 2024-02-23 04:58 | P.PN ---
Subjective Progress Note Date: 02/22/24 Patient is a 78-year-old female with a past medical history of atrial fibrillation on anticoagulation with Eliquis, osteoarthritis, vascular disease bilateral hip and knee total replacement presents to ER with complaints of left leg infection. Patient had a fall on 02/04/2024 currently and multiple sutures placed on the left leg. Patient noticed discoloration of the skin and necrosis as well as swelling and redness and concerning for wound infection. Patient otherwise denies any pain but her daughter states that she has been having overlying skin changes. She is currently taking Keflex at home. Denies any fever or chills. Patient had urine culture done on 02/04/2021 at her primary care physician's office showing VRE and inquired about her antibiotic choices. Patient's daughter states that she is very prone to getting AVM infections. On admission x-ray of the knees showed no acute dislocation or fracture. X-ray tibia-fibula showed no acute fracture or dislocation. Laboratory test showed WBC 6.2 hemoglobin 8.4 and platelets 216. Sodium 139 potassium 4.7 chloride 110 bicarb is 20 BUN 42 and creatinine 1.02 and blood sugar 92 AST 41 ALT 44 and alk phos 174 and CRP 6.5. Urinalysis showed large leukocyte esterase with 3 WBCs. 02/20/2024 Patient is currently sitting in a chair. Awake alert and oriented x 3. On room air. No complaints of chest pain. No complaints of leg pain left lower extremity wound is wrapped with. No complaints of pain. Still having leg swelling. Laboratory test showed WBC 5.1 hemoglobin 7.8 and platelets 202 sodium 139 potassium 4.8 chloride 101 bicarb is 23 BUN 34 creatinine 1.04 and blood sugar 86. Patient remains on antibiotics cefepime and daptomycin. ID is on board. 02/21/2024 Patient is currently sitting in the chair. Awake alert and oriented x 3. Patient's family member is at bedside. No complaints of chest pain or shortness of breath. Currently on room air. No nausea vomiting abdominal pain or diarrhea. Patient is being continued on antibiotics in the form of daptomycin and cefepime. Left leg is still swollen and rapid. Vascular surgery has seen the patient for problem debridement. And cultures. Laboratory data reviewed. Urine culture showed Barbara albicans. Wound cultures showed Pseudomonas and MRSA. 02/22/2024 Patient is seen and evaluated in follow-up today maintained on antibiotics with infectious disease along with vascular surgery following and patient is status post debridement. Patient is scheduled to undergo bedside dressing change and further evaluation with vascular surgery. Repeat cultures obtained showing presumptive MRSA and gram-negative bacilli preliminary and will continue on current antibiotic regimen. Initial urine culture showing Barbara and repeat is negative. Patient did receive a dose of Diflucan. Patient to continue with elevating lower extremities and wound care of the lower extremities. Patient to be evaluated by PT/OT therapy and Review of systems: Constitutional: No reports of fatigue, fever, or chills Cardiovascular: No reports of chest pain or palpitations Respiratory: No reports of shortness of breath or cough GI: No reports of nausea, vomiting, or diarrhea : No reports of dysuria or retention Neurovascular: reports of generalized weakness continued lower extremity swelling although improving All medications have been reviewed PHYSICAL EXAMINATION: Patient is sitting in the chair, no acute distress, awake alert and oriented.. Well-developed, elderly appearing, morbidly obese HEENT: Normocephalic. Neck is supple. Pupils reactive. Nostrils clear. Oral cavity is moist. Neck reveals no JVD, carotid bruits, or thyromegaly. CHEST EXAMINATION: Trachea is central. Symmetrical expansion. Lung cabrera clear to auscultation and percussion. CARDIAC: Normal S1, S2 with no gallops. No murmurs ABDOMEN: Soft. Obese bowel sounds normal. No organomegaly. No abdominal bruits. Extremities: Left lower extremity wound is currently wrapped in surgical d ressing is dry and intact. No clubbing or cyanosis. Some minimal redness which appears chronic noted and previous redness and swelling have significantly improved. Neurologically awake, alert, oriented x3 with well-coordinated movements. No focal deficits noted, diffusely weak Skin: No rash or skin lesions other than mentioned above Psychiatric: Cooperative. Non-suicidal Musculoskeletal: No joint swelling or deformity. Normal range of motion. Assessment: Left lower extremity wound infection. Patient had lacerated wound on 02/04/2024 and currently outpatient antibiotic course with Keflex. VRE urinary tract infection. Patient had urine cultures done at PCPs office recently on 02/05/2024 showed VRE. Patient is allergic to penicillin. Repeat cultures are negative Atrial fibrillation paroxysmal on anticoagulation with Eliquis Osteoarthritis History of bilateral hip and knee started replacement. Morbid obesity with BMI of 40.9 Glaucoma DVT prophylaxis patient is already on anticoagulation with Eliquis GI prophylaxis Full code Plan: Patient is being continued on antibiotics with cefepime and daptomycin.. Urine culture showed Barbara albicans. Repeat urine culture is negative and Diflucan discontinued. Wound culture showed MRSA and Pseudomonas.. Blood cultures primarily showed no growth. Repeat wound cultures obtained after debridement with vascular surgery showing presumptive staph and gram-negative bacilli preliminary. Will await finalized cultures to determine discharge antibiotics Follow-up on repeat labs Elevate lower extremities while at rest local wound care per vascular and ID recommendations PT/OT therapy to evaluate and case management regards to discharge planning The impression and plan of care has been dictated by Negrita Hollis, Nurse Practitioner as directed. Dr. Carmencita MD I have performed a history and examination and MDM of this patient, discussed the same with the dictator, and agree with the dictator's assessment and plan as written ,documented as a scribe. Based on total visit time, I have performed more than 50% of the visit. Objective - Vital Signs Vital signs: Vital Signs Temp 97.6 F 02/22/24 07:10 Pulse 69 02/22/24 07:10 Resp 17 02/22/24 07:10 BP 134/81 02/22/24 07:10 Pulse Ox 98 02/22/24 07:10 FiO2 Intake & Output 02/21/24 02/22/24 02/22/24 18:59 06:59 18:59 Intake Total 400 Output Total 1100 600 Balance -1100 -600 400 Intake: Oral 400 Output: Urine 1100 600 Other: Voiding Method External Catheter External Catheter # Bowel Movements 1 - Labs CBC & Chem 7: 02/22/24 03:42 02/22/24 03:42 Labs: Abnormal Lab Results - Last 24 Hours (Table) 02/22/24 02/22/24 Range/Units 03:42 03:42 RBC 2.45 L (4.10-5.20) X 10*6/uL Hgb 7.2 L (12.0-15.0) g/dL Hct 23.6 L (37.2-46.3) % MCHC 30.5 L (32.0-37.0) g/dL RDW 16.5 H (11.5-14.5) % BUN 35.3 H (9.0-27.0) mg/dL Est GFR (CKD-EPI) 51 L (>=60) BUN/Creatinine Ratio 32.09 H (12.00-20.00) Ratio Calcium 8.6 L (8.7-10.3) mg/dL Microbiology - Last 24 Hours (Table) 02/21/24 14:20 Gram Stain - Preliminary Leg - Left 02/18/24 15:55 Blood Culture - Preliminary Blood 02/18/24 16:10 Blood Culture - Preliminary Blood 02/18/24 11:42 Gram Stain - Final Leg - Left Wound Culture - Final Pseudomonas aeruginosa Methicillin resist S. aureus
[2024-02-23 08:30] LABS: Basophils # (A) 0.01 X 10*3/uL (0.00-0.10); Basophils % (A) 0.2 %; Eosinophils # (A) 0.08 X 10*3/uL (0.04-0.35); Eosinophils % (A) 1.4 %; HCT 23.7 % (37.2-46.3); HGB 7.3 g/dL (12.0-15.0); Lymphocytes # (A) 1.07 X 10*3/uL (0.90-5.00); Lymphocytes % (A) 18.9 %; MCH 29.6 pg (27.0-32.0); MCHC 30.8 g/dL (32.0-37.0); Mean Platelet Volume 10.2 FL (9.5-12.2); Monocytes # (A) 0.54 X 10*3/uL (0.20-1.00); Monocytes % (A) 9.6 %; NRBC Per 100 WBC 0 X 10*3/uL (0.00-0.01); Neutrophils # (A) 3.92 X 10*3/uL (1.80-7.70); Neutrophils % (A) 69.4 %; Platelet Count 174 X 10*3/uL (140-440); RBC 2.47 X 10*6/uL (4.10-5.20); RDW 16.4 % (11.5-14.5); WBC 5.65 X 10*3/uL (4.50-10.00)
[2024-02-23 09:06] LABS: ALT 27 U/L (8-44); AST 22 U/L (13-35); Albumin 3.1 g/dL (3.8-4.9); Albumin/Globulin Ratio 1.11 Ratio (1.60-3.17); Alkaline Phosphatase 156 U/L (41-126); BUN/Creat Ratio 32.36 Ratio (12.00-20.00); Blood Urea Nitrogen 35.6 mg/dL (9.0-27.0); Calcium 8.6 mg/dL (8.7-10.3); Carbon Dioxide 21.8 mmol/L (21.6-31.8); Chloride 107 mmol/L (96-109); Globulin 2.8 g/dL (1.6-3.3); Glucose 85 mg/dL (70-110); Magnesium 2.2 mg/dL (1.5-2.4); Potassium 4.8 mmol/L (3.5-5.5); Sodium 139 mmol/L (135-145); Total Bilirubin 0.3 mg/dL (0.3-1.2); Total Protein 5.9 g/dL (6.2-8.2)
--- NOTE | 2024-02-23 20:28 | PN ---
PROGRESS NOTE The patient had a fall and patient had a flap necrosis of the left lower leg. We excised the tubularized tissue and flap necrosis. We will continue with local wound care and care of infectious disease. We changed the dressing today using Aquacel silver, this time less drainage was noted. We will continue changing dressing every 48 hours. MMODL / IJN: [id number] /
--- NOTE | 2024-02-24 00:12 | P.PN ---
Subjective Progress Note Date: 02/23/24 Patient is a 78-year-old female with a past medical history of atrial fibrillation on anticoagulation with Eliquis, osteoarthritis, vascular disease bilateral hip and knee total replacement presents to ER with complaints of left leg infection. Patient had a fall on 02/04/2024 currently and multiple sutures placed on the left leg. Patient noticed discoloration of the skin and necrosis as well as swelling and redness and concerning for wound infection. Patient otherwise denies any pain but her daughter states that she has been having overlying skin changes. She is currently taking Keflex at home. Denies any fever or chills. Patient had urine culture done on 02/04/2021 at her primary care physician's office showing VRE and inquired about her antibiotic choices. Patient's daughter states that she is very prone to getting AVM infections. On admission x-ray of the knees showed no acute dislocation or fracture. X-ray tibia-fibula showed no acute fracture or dislocation. Laboratory test showed WBC 6.2 hemoglobin 8.4 and platelets 216. Sodium 139 potassium 4.7 chloride 110 bicarb is 20 BUN 42 and creatinine 1.02 and blood sugar 92 AST 41 ALT 44 and alk phos 174 and CRP 6.5. Urinalysis showed large leukocyte esterase with 3 WBCs. 02/20/2024 Patient is currently sitting in a chair. Awake alert and oriented x 3. On room air. No complaints of chest pain. No complaints of leg pain left lower extremity wound is wrapped with. No complaints of pain. Still having leg swelling. Laboratory test showed WBC 5.1 hemoglobin 7.8 and platelets 202 sodium 139 potassium 4.8 chloride 101 bicarb is 23 BUN 34 creatinine 1.04 and blood sugar 86. Patient remains on antibiotics cefepime and daptomycin. ID is on board. 02/21/2024 Patient is currently sitting in the chair. Awake alert and oriented x 3. Patient's family member is at bedside. No complaints of chest pain or shortness of breath. Currently on room air. No nausea vomiting abdominal pain or diarrhea. Patient is being continued on antibiotics in the form of daptomycin and cefepime. Left leg is still swollen and rapid. Vascular surgery has seen the patient for problem debridement. And cultures. Laboratory data reviewed. Urine culture showed Barbara albicans. Wound cultures showed Pseudomonas and MRSA. 02/22/2024 Patient is seen and evaluated in follow-up today maintained on antibiotics with infectious disease along with vascular surgery following and patient is status post debridement. Patient is scheduled to undergo bedside dressing change and further evaluation with vascular surgery. Repeat cultures obtained showing presumptive MRSA and gram-negative bacilli preliminary and will continue on current antibiotic regimen. Initial urine culture showing Barbara and repeat is negative. Patient did receive a dose of Diflucan. Patient to continue with elevating lower extremities and wound care of the lower extremities. Patient to be evaluated by PT/OT therapy 02/23/2024 Patient seen in follow-up today with infectious disease following maintained on antibiotics with culture showing MRSA with Pseudomonas. Vascular surgery following scheduled to undergo dressing changes ago possible further cleaning about the wound site on the left. Swelling has significantly improved to the lower extremities and encouraged the patient to continue using Yordan wraps and elevating lower extremities while at rest. Patient is afebrile with no reports of chest pain or shortness of breath. Patient reports to tolerating diet with no reported nausea or vomiting. Patient has not been evaluated by PT/OT therapy as of yet and reports would like to go home with family on discharge. Review of systems: Constitutional: No reports of fatigue, fever, or chills Cardiovascular: No reports of chest pain or palpitations Respiratory: No reports of shortness of breath or cough GI: No reports of nausea, vomiting, or diarrhea : No reports of dysuria or retention Neurovascular: reports of generalized weakness continued lower extremity swelling although improving All medications have been reviewed PHYSICAL EXAMINATION: Patient is sitting in the chair, no acute distress, awake alert and oriented.. Well-developed, elderly appearing, morbidly obese HEENT: Normocephalic. Neck is supple. Pupils reactive. Nostrils clear. Oral cavity is moist. Neck reveals no JVD, carotid bruits, or thyromegaly. CHEST EXAMINATION: Trachea is central. Symmetrical expansion. Lung cabrera clear to auscultation and percussion. CARDIAC: Normal S1, S2 with no gallops. No murmurs ABDOMEN: Soft. Obese bowel sounds normal. No organomegaly. No abdominal bruits. Extremities: Left lower extremity wound is currently wrapped in surgical dressing is dry and intact. No clubbing or cyanosis. Some minimal redness which appears chronic noted and previous redness and swelling have significantly improved. Neurologically awake, alert, oriented x3 with well-coordinated movements. No focal deficits noted, diffusely weak Skin: No rash or skin lesions other than mentioned above Psychiatric: Cooperative. Non-suicidal Musculoskeletal: No joint swelling or deformity. Normal range of motion. Assessment: Left lower extremity wound infection. Patient had lacerated wound on 02/04/2024 and currently outpatient antibiotic course with Keflex. Culture showing Pseudomonas and MRSA VRE urinary tract infection. Patient had urine cultures done at PCPs office recently on 02/05/2024 showed VRE. Patient is allergic to penicillin. Repeat cultures are negative Atrial fibrillation paroxysmal on anticoagulation with Eliquis, currently rate controlled Osteoarthritis History of bilateral hip and knee replacement. Morbid obesity with BMI of 40.9 Glaucoma DVT prophylaxis patient is already on anticoagulation with Eliquis GI prophylaxis Full code Plan: Patient is being continued on antibiotics with cefepime and daptomycin.. Infectious disease and vascular surgery following. Dr. Gusman to perform dressing changes and possible cleanup lower extremity. Repeat wound cultures finalized with MRSA and Pseudomonas. Will discuss with regarding discharge planning. Patient may need IV antibiotic. Urine culture showed Barbara albicans. Repeat urine culture is negative and Diflucan discontinued. Wound culture showed MRSA and Pseudomonas.. Blood cultures primarily showed no growth. Follow-up on repeat labs Elevate lower extremities while at rest local wound care per vascular and ID recommendations PT/OT therapy to evaluate and case management regards to discharge planning. Patient would like to return home with her daughter with continued home care. Currently awaiting PT/OT therapy to evaluate. Will discuss further with case management as patient may likely need IV antibiotics on discharge The impression and plan of care has been dictated by Negrita Hollis, Nurse Practitioner as directed. Dr. Carmencita MD I have performed a history and examination and MDM of this patient, discussed the same with the dictator, and agree with the dictator's assessment and plan as written ,documented as a scribe. Based on total visit time, I have performed more than 50% of the visit. Objective - Vital Signs Vital signs: Vital Signs Temp 97.7 F 02/23/24 19:35 Pulse 63 02/23/24 19:35 Resp 18 02/23/24 19:35 BP 120/68 02/23/24 19:35 Pulse Ox 97 02/23/24 19:35 FiO2 Intake & Output 02/23/24 02/23/24 02/24/24 06:59 18:59 06:59 Output Total 500 1700 Balance -500 -1700 Output: Urine 500 1700 Other: Voiding Method External Catheter External Catheter # Voids 1 # Bowel Movements 1 - Labs CBC & Chem 7: 02/23/24 05:16 02/23/24 05:16 Labs: Abnormal Lab Results - Last 24 Hours (Table) 02/23/24 02/23/24 Range/Units 05:16 05:16 RBC 2.47 L (4.10-5.20) X 10*6/uL Hgb 7.3 L (12.0-15.0) g/dL Hct 23.7 L (37.2-46.3) % MCHC 30.8 L (32.0-37.0) g/dL RDW 16.4 H (11.5-14.5) % BUN 35.6 H (9.0-27.0) mg/dL Est GFR (CKD-EPI) 51 L (>=60) BUN/Creatinine Ratio 32.36 H (12.00-20.00) Ratio Calcium 8.6 L (8.7-10.3) mg/dL Alkaline Phosphatase 156 H (41-126) U/L Total Protein 5.9 L (6.2-8.2) g/dL Albumin 3.1 L (3.8-4.9) g/dL Albumin/Globulin Ratio 1.11 L (1.60-3.17) Ratio Microbiology - Last 24 Hours (Table) 02/21/24 14:20 Anaerobic Culture - Preliminary Leg - Left 02/18/24 15:55 Blood Culture - Final Blood 02/18/24 16:10 Blood Culture - Final Blood 02/21/24 14:20 Gram Stain - Final Leg - Left Tissue Culture - Final Methicillin resist S. aureus Pseudomonas aeruginosa
--- NOTE | 2024-02-24 16:17 | P.PN ---
Subjective Progress Note Date: 02/24/24 Patient is a 78-year-old female with a past medical history of atrial fibrillation on anticoagulation with Eliquis, osteoarthritis, vascular disease bilateral hip and knee total replacement presents to ER with complaints of left leg infection. Patient had a fall on 02/04/2024 currently and multiple sutures placed on the left leg. Patient noticed discoloration of the skin and necrosis as well as swelling and redness and concerning for wound infection. Patient otherwise denies any pain but her daughter states that she has been having overlying skin changes. She is currently taking Keflex at home. Denies any fever or chills. Patient had urine culture done on 02/04/2021 at her primary care physician's office showing VRE and inquired about her antibiotic choices. Patient's daughter states that she is very prone to getting AVM infections. On admission x-ray of the knees showed no acute dislocation or fracture. X-ray tibia-fibula showed no acute fracture or dislocation. Laboratory test showed WBC 6.2 hemoglobin 8.4 and platelets 216. Sodium 139 potassium 4.7 chloride 110 bicarb is 20 BUN 42 and creatinine 1.02 and blood sugar 92 AST 41 ALT 44 and alk phos 174 and CRP 6.5. Urinalysis showed large leukocyte esterase with 3 WBCs. 02/20/2024 Patient is currently sitting in a chair. Awake alert and oriented x 3. On room air. No complaints of chest pain. No complaints of leg pain left lower extremity wound is wrapped with. No complaints of pain. Still having leg swelling. Laboratory test showed WBC 5.1 hemoglobin 7.8 and platelets 202 sodium 139 potassium 4.8 chloride 101 bicarb is 23 BUN 34 creatinine 1.04 and blood sugar 86. Patient remains on antibiotics cefepime and daptomycin. ID is on board. 02/21/2024 Patient is currently sitting in the chair. Awake alert and oriented x 3. Patient's family member is at bedside. No complaints of chest pain or shortness of breath. Currently on room air. No nausea vomiting abdominal pain or diarrhea. Patient is being continued on antibiotics in the form of daptomycin and cefepime. Left leg is still swollen and rapid. Vascular surgery has seen the patient for problem debridement. And cultures. Laboratory data reviewed. Urine culture showed Barbara albicans. Wound cultures showed Pseudomonas and MRSA. 02/22/2024 Patient is seen and evaluated in follow-up today maintained on antibiotics with infectious disease along with vascular surgery following and patient is status post debridement. Patient is scheduled to undergo bedside dressing change and further evaluation with vascular surgery. Repeat cultures obtained showing presumptive MRSA and gram-negative bacilli preliminary and will continue on current antibiotic regimen. Initial urine culture showing Barbara and repeat is negative. Patient did receive a dose of Diflucan. Patient to continue with elevating lower extremities and wound care of the lower extremities. Patient to be evaluated by PT/OT therapy 02/23/2024 Patient seen in follow-up today with infectious disease following maintained on antibiotics with culture showing MRSA with Pseudomonas. Vascular surgery following scheduled to undergo dressing changes ago possible further cleaning about the wound site on the left. Swelling has significantly improved to the lower extremities and encouraged the patient to continue using Yordan wraps and elevating lower extremities while at rest. Patient is afebrile with no reports of chest pain or shortness of breath. Patient reports to tolerating diet with no reported nausea or vomiting. Patient has not been evaluated by PT/OT therapy as of yet and reports would like to go home with family on discharge. 02/24/2024 Patient is seen in follow-up today with cultures growing MRSA and Pseudomonas. Patient will continue another 24 hours of IV antibiotics with consideration of possible double oral antibiotic therapy per ID recommendations. Patient will likely go home on Cipro and doxycycline with close outpatient follow-up with the wound care center with Dr. Gusman. Continue with local wound care and will have dressing changes by Dr. Gusman on 02/25/2024. Patient instructed to elevate lower extremities while at rest and continue with Yordan wraps. Swelling of the lower extremities has significantly improved. Patient is afebrile with no reports of chest pain or shortness of breath. Patient tolerating diet with no reported nausea or vomiting. Patient is having bowel movements with no diarrhea noted. Plan is for patient to return home with daughter on discharge. Review of systems: Constitutional: No reports of fatigue, fever, or chills Cardiovascular: No reports of chest pain or palpitations Respiratory: No reports of shortness of breath or cough GI: No reports of nausea, vomiting, or diarrhea : No reports of dysuria or retention Neurovascular: reports of generalized weakness continued lower extremity swelling although improving All medications have been reviewed PHYSICAL EXAMINATION: Patient is sitting in the chair, no acute distress, awake alert and oriented.. Well-developed, elderly appearing, morbidly obese HEENT: Normocephalic. Neck is supple. Pupils reactive. Nostrils clear. Oral cavity is moist. Neck reveals no JVD, carotid bruits, or thyromegaly. CHEST EXAMINATION: Trachea is central. Symmetrical expansion. Lung cabrera clear to auscultation and percussion. CARDIAC: Normal S1, S2 with no gallops. No murmurs ABDOMEN: Soft. Obese bowel sounds normal. No organomegaly. No abdominal bruits. Extremities: Left lower extremity wound is currently wrapped in surgical dressing is dry and intact. No clubbing or cyanosis. Some minimal redness which appears chronic noted and previous redness and swelling have significantly improved. Neurologically awake, alert, oriented x3 with well-coordinated movements. No focal deficits noted, diffusely weak Skin: No rash or skin lesions other than mentioned above Psychiatric: Cooperative. Non-suicidal Musculoskeletal: No joint swelling or deformity. Normal range of motion. Assessment: Left lower extremity wound infection. Patient had lacerated wound on 02/04/2024 and currently outpatient antibiotic course with Keflex. Culture showing Pse udomonas and MRSA VRE urinary tract infection. Patient had urine cultures done at PCPs office recently on 02/05/2024 showed VRE. Patient is allergic to penicillin. Repeat cultures are negative Atrial fibrillation paroxysmal on anticoagulation with Eliquis, currently rate controlled Osteoarthritis History of bilateral hip and knee replacement. Morbid obesity with BMI of 40.9 Glaucoma DVT prophylaxis patient is already on anticoagulation with Eliquis GI prophylaxis Full code Plan: Patient is being continued on antibiotics with cefepime and daptomycin.. Infectious disease and vascular surgery following. Dr. Gusman to perform dressing changes on 02/25/2024 of the lower extremity. Repeat wound cultures finalized with MRSA and Pseudomonas. Discussed with infectious disease and will likely discharge home on Cipro and doxycycline for a 2-week course and close outpatient follow-up. Urine culture showed Barbara albicans. Repeat urine culture is negative and Diflucan discontinued. Wound culture showed MRSA and Pseudomonas.. Blood cultures primarily showed no growth. Follow-up on repeat labs Elevate lower extremities while at rest local wound care per vascular and ID recommendations PT/OT therapy to evaluate and case management regards to discharge planning. Patient would like to return home with her daughter with continued home care. Currently awaiting PT/OT therapy to evaluate. Will discuss further with case management regarding discharge planning. Possible discharge planning in the next 24 hours The impression and plan of care has been dictated by Negrita Hollis, Nurse Practitioner as directed. Dr. Carmencita MD I have performed a history and examination and MDM of this patient, discussed the same with the dictator, and agree with the dictator's assessment and plan as written ,documented as a scribe. Based on total visit time, I have performed more than 50% of the visit. Objective - Vital Signs Vital signs: Vital Signs Temp 97.7 F 02/24/24 07:25 Pulse 71 02/24/24 07:25 Resp 16 02/24/24 07:25 BP 133/62 02/24/24 07:25 Pulse Ox 97 02/24/24 07:25 FiO2 Intake & Output 02/23/24 02/24/24 02/24/24 18:59 06:59 18:59 Output Total 1700 600 Balance -1700 -600 Output: Urine 1700 600 Other: Voiding Method External Catheter External Catheter External Catheter # Voids 1 # Bowel Movements 1 - Labs CBC & Chem 7: 02/23/24 05:16 02/23/24 05:16 Labs: Microbiology - Last 24 Hours (Table) 02/21/24 14:20 Anaerobic Culture - Preliminary Leg - Left 02/18/24 15:55 Blood Culture - Final Blood 02/18/24 16:10 Blood Culture - Final Blood 02/21/24 14:20 Gram Stain - Final Leg - Left Tissue Culture - Final Methicillin resist S. aureus Pseudomonas aeruginosa
[2024-02-25 13:52] VITALS: BMI 40.9
--- NOTE | 2024-02-25 16:08 | P.PN ---
Subjective Progress Note Date: 02/23/24 Principal diagnosis: Reason for follow-up is left lower extremity wound cellulitis and UTI Patient is a 78-year-old female with a past medical history significant for atrial fibrillation osteoarthritis lower extremity edema patient has been sent to the ER concerning for left leg infection apparently the patient did have a fall on 02/04/2024 and did have multiple sutures placed in the left leg patient noticed to having discoloration skin necrosis as well as swelling and redness concerning for wound infection and also have outpatient urine culture positive for VRE.Patient did have a bedside debridement of the left lower extremity flap necrosis and some drainage has been cultured On today's evaluation that is 02/23/2024, Patient is afebrile patient is currently on room air and denies having any shortness of breath, the patient denies any chest pain or cough, the patient denies any nausea vomiting did not have any abdominal pain and no diarrhea, patient denies any worsening pain to the left lower extremity wound. Patient white count is 5.61, creatinine is 1.1 wound culture currently growing Pseudomonas and MRSA Objective - Vital Signs Vital signs: Vital Signs Temp 97.3 F L 02/23/24 07:13 Pulse 69 02/23/24 07:13 Resp 18 02/23/24 07:13 BP 137/77 02/23/24 07:13 Pulse Ox 96 02/23/24 07:13 FiO2 Intake & Output 02/22/24 02/23/24 02/23/24 18:59 06:59 18:59 Intake Total 550 Output Total 800 500 Balance -250 -500 Intake: Intake, IV Titration 150 Amount Cefepime 2 gm In Sodium 100 Chloride 0.9% 100 ml @ 25 mls/hr IVPB Q12H [facility] Rx# :[id number] DAPTOmycin 450 mg In 50 Sodium Chloride 0.9% 50 ml @ 100 mls/hr IVPB Q24H [facility] Rx#:[id number] Oral 400 Output: Urine 800 500 Other: Voiding Method External Catheter External Catheter External Catheter # Voids 4 1 - Exam GENERAL DESCRIPTION: An elderly female lying in bed in no distress RESPIRATORY SYSTEM: Unlabored breathing , decreased breath sounds at bases HEART: S1 S2 regular rate and rhythm , ABDOMEN: Soft , no tenderness EXTREMITIES: Left leg wound currently dressed no drainage on the dressing - Labs CBC & Chem 7: 02/23/24 05:16 02/23/24 05:16 Labs: Abnormal Lab Results - Last 24 Hours (Table) 02/23/24 02/23/24 Range/Units 05:16 05:16 RBC 2.47 L (4.10-5.20) X 10*6/uL Hgb 7.3 L (12.0-15.0) g/dL Hct 23.7 L (37.2-46.3) % MCHC 30.8 L (32.0-37.0) g/dL RDW 16.4 H (11.5-14.5) % BUN 35.6 H (9.0-27.0) mg/dL Est GFR (CKD-EPI) 51 L (>=60) BUN/Creatinine Ratio 32.36 H (12.00-20.00) Ratio Calcium 8.6 L (8.7-10.3) mg/dL Alkaline Phosphatase 156 H (41-126) U/L Total Protein 5.9 L (6.2-8.2) g/dL Albumin 3.1 L (3.8-4.9) g/dL Albumin/Globulin Ratio 1.11 L (1.60-3.17) Ratio Microbiology - Last 24 Hours (Table) 02/21/24 14:20 Gram Stain - Preliminary Leg - Left Tissue Culture - Preliminary Presumptive MRSA Gram Neg Bacilli 02/18/24 11:42 Anaerobic Culture - Final Leg - Left Assessment and Plan (1) Cellulitis of left leg Current Visit: Yes Status: Acute Code(s): L03.116 - CELLULITIS OF LEFT LOWER LIMB SNOMED Code(s): 07659059848297703 (2) Urinary tract infection Current Visit: No Status: Acute Code(s): N39.0 - URINARY TRACT INFECTION, SITE NOT SPECIFIED SNOMED Code(s): 23875835 Plan: 1patient with the recent fall with laceration to the left leg that has been stitched up within the hospital some skin necrosis and cellulitis likely from gram-positive skin yogesh from leg infection not entirely excluded. 2patient with recent urine culture done outpatient grew VRE did have a mildly positive UA with urine cultures currently growing yeast [place] has been changed 3patient with a penicillin allergy that would limit the number of antibiotics safe to use. 4patient left leg culture growing MRSA and Pseudomonas aeruginosa for the patient is covered with daptomycin and cefepime , patient did have a bedside debridement by vascular surgery repeat cultures obtained which are currently pending, patient has been advised IV antibiotic on discharge the patient is currently refusing and would like to try oral 5urine is growing yeast which is started Diflucan however with repeat UA negative, Diflucan has been discontinued Dictation was produced using [employer] dictation software. please excuse any grammatical, word or spelling errors. Time with Patient: Less than 30
--- NOTE | 2024-02-25 16:09 | P.PN ---
Subjective Progress Note Date: 02/24/24 Principal diagnosis: Reason for follow-up is left lower extremity wound cellulitis and UTI Patient is a 78-year-old female with a past medical history significant for atrial fibrillation osteoarthritis lower extremity edema patient has been sent to the ER concerning for left leg infection apparently the patient did have a fall on 02/04/2024 and did have multiple sutures placed in the left leg patient noticed to having discoloration skin necrosis as well as swelling and redness concerning for wound infection and also have outpatient urine culture positive for VRE.Patient did have a bedside debridement of the left lower extremity flap necrosis and some drainage has been cultured On today's evaluation that is 02/24/2024, patient has been afebrile, patient is breathing comfortably and is currently on room air, patient denies having any significant cough no chest pain shortness of breath, patient denies nausea vomiting or diarrhea and no abdominal pain, the patient pain to left lower extremity is currently controlled. No new labs were obtained today Objective - Vital Signs Vital signs: Vital Signs Temp 97.5 F L 02/24/24 14:00 Pulse 62 02/24/24 14:00 Resp 17 02/24/24 14:00 BP 143/67 02/24/24 14:00 Pulse Ox 97 02/24/24 14:00 FiO2 Intake & Output 02/23/24 02/24/24 02/24/24 18:59 06:59 18:59 Output Total 1700 600 Balance -1700 -600 Output: Urine 1700 600 Other: Voiding Method External Catheter External Catheter External Catheter # Voids 1 # Bowel Movements 1 - Exam GENERAL DESCRIPTION: An elderly female lying in bed in no distress RESPIRATORY SYSTEM: Unlabored breathing , decreased breath sounds at bases HEART: S1 S2 regular rate and rhythm , ABDOMEN: Soft , no tenderness EXTREMITIES: Left leg wound currently dressed no drainage on the dressing - Labs CBC & Chem 7: 02/23/24 05:16 02/23/24 05:16 Labs: Microbiology - Last 24 Hours (Table) 02/21/24 14:20 Anaerobic Culture - Preliminary Leg - Left 02/18/24 15:55 Blood Culture - Final Blood 02/18/24 16:10 Blood Culture - Final Blood 02/21/24 14:20 Gram Stain - Final Leg - Left Tissue Culture - Final Methicillin resist S. aureus Pseudomonas aeruginosa Assessment and Plan (1) Cellulitis of left leg Current Visit: Yes Status: Acute Code(s): L03.116 - CELLULITIS OF LEFT LOWER LIMB SNOMED Code(s): 52935197192098372 (2) Urinary tract infection Current Visit: No Status: Acute Code(s): N39.0 - URINARY TRACT INFECTION, SITE NOT SPECIFIED SNOMED Code(s): 09609912 Plan: 1patient with the recent fall with laceration to the left leg that has been stitched up within the hospital some skin necrosis and cellulitis likely from gram-positive skin yogesh from leg infection not entirely excluded. 2patient with recent urine culture done outpatient grew VRE did have a mildly positive UA with urine cultures currently growing yeast Rico has been changed 3patient with a penicillin allergy that would limit the number of antibiotics safe to use. 4urine is growing yeast which is started Diflucan however with repeat UA negative, Diflucan has been discontinued 5patient left leg culture growing MRSA and Pseudomonas aeruginosa for the patient is covered with daptomycin and cefepime , patient did have a bedside debridement by vascular surgery repeat cultures obtained which are currently pending, patient has been advised IV antibiotic on discharge the patient is currently refusing and would like to try oral, we will suggest oral Cipro and doxycycline x 10 days on discharge and if failed oral then will consider IV discussed with admitting team Dictation was produced using [employer] dictation software. please excuse any gr ammatical, word or spelling errors. Time with Patient: Less than 30
--- NOTE | 2024-02-25 16:10 | P.PN ---
Subjective Progress Note Date: 02/25/24 Principal diagnosis: Reason for follow-up is left lower extremity wound cellulitis and UTI Patient is a 78-year-old female with a past medical history significant for atrial fibrillation osteoarthritis lower extremity edema patient has been sent to the ER concerning for left leg infection apparently the patient did have a fall on 02/04/2024 and did have multiple sutures placed in the left leg patient noticed to having discoloration skin necrosis as well as swelling and redness concerning for wound infection and also have outpatient urine culture positive for VRE.Patient did have a bedside debridement of the left lower extremity flap necrosis and some drainage has been cultured On today's evaluation that is 02/25/2024, Patient is afebrile this morning and denies any chills, patient mention breathing comfortably and is currently on room air, patient denies any chest pain occasional cough patient denies any abdominal pain no diarrhea no nausea no vomiting, patient denies any worsening pain to the left lower extremity or other mention feeling better and is itching. No new diet has been obtained today, local culture showing MRSA Pseudomonas and also Bacteroides fragilis Objective - Vital Signs Vital signs: Vital Signs Temp 97.4 F L 02/25/24 01:07 Pulse 67 02/25/24 07:12 Resp 18 02/25/24 07:12 BP 163/80 02/25/24 07:12 Pulse Ox 96 02/25/24 07:12 FiO2 Intake & Output 02/24/24 02/25/24 02/25/24 18:59 06:59 18:59 Output Total 1400 450 Balance -1400 -450 Output: Urine 1400 450 Other: Voiding Method External Catheter External Catheter # Voids 1 - Exam GENERAL DESCRIPTION: An elderly female lying in bed in no distress RESPIRATORY SYSTEM: Unlabored breathing , decreased breath sounds at bases HEART: S1 S2 regular rate and rhythm , ABDOMEN: Soft , no tenderness EXTREMITIES: Left leg wound base with some slough tissue surrounding redness improved no foul-smelling drainage - Labs CBC & Chem 7: 02/23/24 05:16 02/23/24 05:16 Labs: Microbiology - Last 24 Hours (Table) 02/21/24 14:20 Anaerobic Culture - Final Leg - Left Bacteroides fragilis Assessment and Plan (1) Cellulitis of left leg Current Visit: Yes Status: Acute Code(s): L03.116 - CELLULITIS OF LEFT LOWER LIMB SNOMED Code(s): 98796987965982236 (2) Urinary tract infection Current Visit: No Status: Acute Code(s): N39.0 - URINARY TRACT INFECTION, SITE NOT SPECIFIED SNOMED Code(s): 86420763 Plan: 1patient with the recent fall with laceration to the left leg that has been stitched up within the hospital some skin necrosis and cellulitis likely from gram-positive skin yogesh from leg infection not entirely excluded. 2patient with recent urine culture done outpatient grew VRE did have a mildly positive UA with urine cultures currently growing yeast Rico has been changed 3patient with a penicillin allergy that would limit the number of antibiotics safe to use. 4urine is growing yeast which is started Diflucan however with repeat UA nega tive, Diflucan has been discontinued 5patient left leg culture growing MRSA and Pseudomonas aeruginosa for the patient is covered with daptomycin and cefepime , patient did have a bedside debridement by vascular surgery repeat cultures obtained which are currently growing MRSA Pseudomonas and Bacteroides species, patient has been advised IV antibiotic on discharge the patient is currently refusing and would like to try oral, plan is for oral Cipro Flagyl and doxycycline for 10 days and close ou tpatient follow-up may need IV antibiotic if any worsening and did not completely heal with oral antibiotics explained to the patient in layman terms Dictation was produced using [employer] dictation software. please excuse any grammatical, word or spelling errors. Time with Patient: Less than 30
--- NOTE | 2024-02-25 20:31 | PN ---
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 The patient had extensive debridement in the past. We have been treating with local wound care. Base of the wound is granulating. The patient is on IV antibiotic per Infectious Disease. Today, we have changed the dressing using Aquacel silver and Aquacel silver rope. Dressing applied. The patient tolerated the procedure well. If the patient goes home, then followup in the wound clinic. MMODL / IJN: [id number] /
[2024-02-25] MEDS ORDERED: ZINC OXIDE PASTE (Z-GUARD) 1 APPLIC TOPICAL PRN (23:14)
--- NOTE | 2024-02-26 06:17 | P.PN ---
Subjective Progress Note Date: 02/25/24 Patient is a 78-year-old female with a past medical history of atrial fibrillation on anticoagulation with Eliquis, osteoarthritis, vascular disease bilateral hip and knee total replacement presents to ER with complaints of left leg infection. Patient had a fall on 02/04/2024 currently and multiple sutures placed on the left leg. Patient noticed discoloration of the skin and necrosis as well as swelling and redness and concerning for wound infection. Patient otherwise denies any pain but her daughter states that she has been having overlying skin changes. She is currently taking Keflex at home. Denies any fever or chills. Patient had urine culture done on 02/04/2021 at her primary care physician's office showing VRE and inquired about her antibiotic choices. Patient's daughter states that she is very prone to getting AVM infections. On admission x-ray of the knees showed no acute dislocation or fracture. X-ray tibia-fibula showed no acute fracture or dislocation. Laboratory test showed WBC 6.2 hemoglobin 8.4 and platelets 216. Sodium 139 potassium 4.7 chloride 110 bicarb is 20 BUN 42 and creatinine 1.02 and blood sugar 92 AST 41 ALT 44 and alk phos 174 and CRP 6.5. Urinalysis showed large leukocyte esterase with 3 WBCs. 02/20/2024 Patient is currently sitting in a chair. Awake alert and oriented x 3. On room air. No complaints of chest pain. No complaints of leg pain left lower extremity wound is wrapped with. No complaints of pain. Still having leg swelling. Laboratory test showed WBC 5.1 hemoglobin 7.8 and platelets 202 sodium 139 potassium 4.8 chloride 101 bicarb is 23 BUN 34 creatinine 1.04 and blood sugar 86. Patient remains on antibiotics cefepime and daptomycin. ID is on board. 02/21/2024 Patient is currently sitting in the chair. Awake alert and oriented x 3. Patient's family member is at bedside. No complaints of chest pain or shortness of breath. Currently on room air. No nausea vomiting abdominal pain or diarrhea. Patient is being continued on antibiotics in the form of daptomycin and cefepime. Left leg is still swollen and rapid. Vascular surgery has seen the patient for problem debridement. And cultures. Laboratory data reviewed. Urine culture showed Barbara albicans. Wound cultures showed Pseudomonas and MRSA. 02/22/2024 Patient is seen and evaluated in follow-up today maintained on antibiotics with infectious disease along with vascular surgery following and patient is status post debridement. Patient is scheduled to undergo bedside dressing change and further evaluation with vascular surgery. Repeat cultures obtained showing presumptive MRSA and gram-negative bacilli preliminary and will continue on current antibiotic regimen. Initial urine culture showing Barbara and repeat is negative. Patient did receive a dose of Diflucan. Patient to continue with elevating lower extremities and wound care of the lower extremities. Patient to be evaluated by PT/OT therapy 02/23/2024 Patient seen in follow-up today with infectious disease following maintained on antibiotics with culture showing MRSA with Pseudomonas. Vascular surgery following scheduled to undergo dressing changes ago possible further cleaning about the wound site on the left. Swelling has significantly improved to the lower extremities and encouraged the patient to continue using Yordan wraps and elevating lower extremities while at rest. Patient is afebrile with no reports of chest pain or shortness of breath. Patient reports to tolerating diet with no reported nausea or vomiting. Patient has not been evaluated by PT/OT therapy as of yet and reports would like to go home with family on discharge. 02/24/2024 Patient is seen in follow-up today with cultures growing MRSA and Pseudomonas. Patient will continue another 24 hours of IV antibiotics with consideration of possible double oral antibiotic therapy per ID recommendations. Patient will likely go home on Cipro and doxycycline with close outpatient follow-up with the wound care center with Dr. Gusman. Continue with local wound care and will have dressing changes by Dr. Gusman on 02/25/2024. Patient instructed to elevate lower extremities while at rest and continue with Yordan wraps. Swelling of the lower extremities has significantly improved. Patient is afebrile with no reports of chest pain or shortness of breath. Patient tolerating diet with no reported nausea or vomiting. Patient is having bowel movements with no diarrhea noted. Plan is for patient to return home with daughter on discharge. 02/25/2024 Patient is seen in follow-up today with infectious disease and vascular surgery following planning on changing dressing changes today. Patient will continue on IV antibiotics for now and will transition to Cipro, Doxy, and Flagyl on discharge. Patient to follow-up with the wound care center outpatient and continue with local wound care and home care is being arranged. Patient will likely discharge in the next 24 hours when her daughter is available. Patient encouraged to increase activity as tolerated and continue elevating lower extremities while at rest. Review of systems: Constitutional: No reports of fatigue, fever, or chills Cardiovascular: No reports of chest pain or palpitations Respiratory: No reports of shortness of breath or cough GI: No reports of nausea, vomiting, or diarrhea : No reports of dysuria or retention Neurovascular: reports of generalized weakness continued lower extremity swelling although improving All medications have been reviewed PHYSICAL EXAMINATION: Patient is sitting in the chair, no acute distress, awake alert and oriented.. Well-developed, elderly appearing, morbidly obese HEENT: Normocephalic. Neck is supple. Pupils reactive. Nostrils clear. Oral cavity is moist. Neck reveals no JVD, carotid bruits, or thyromegaly. CHEST EXAMINATION: Trachea is central. Symmetrical expansion. Lung cabrera clear to auscultation and percussion. CARDIAC: Normal S1, S2 with no gallops. No murmurs ABDOMEN: Soft. Obese bowel sounds normal. No organomegaly. No abdominal bruits. Extremities: Left lower extremity wound is currently wrapped in surgical dressing is dry and intact. No clubbing or cyanosis. Some minimal redness which appears chronic noted and previous redness and swelling have significantly improved. Neurologically awake, alert, oriented x3 with well-coordinated movements. No focal deficits noted, diffusely weak Skin: No rash or skin lesions other than mentioned above Psychiatric: Cooperative. Non-suicidal Musculoskeletal: No joint swelling or deformity. Normal range of motion. Assessment: Left lower extremity wound infection. Patient had lacerated wound on 02/04/2024 and currently outpatient antibiotic course with Keflex. Culture showing Pseudomonas and MRSA VRE urinary tract infection. Patient had urine cultures done at PCPs office recently on 02/05/2024 showed VRE. Patient is allergic to penicillin. Repeat cultures are negative Atrial fibrillation paroxysmal on anticoagulation with Eliquis, currently rate controlled Osteoarthritis History of bilateral hip and knee replacement. Morbid obesity with BMI of 40.9 Glaucoma DVT prophylaxis patient is already on anticoagulation with Eliquis GI prophylaxis Full code Plan: Patient is being continued on antibiotics with cefepime and daptomycin.. Infectious disease and vascular surgery following. Dr. Gusman to perform dressing changes on 02/25/2024 of the lower extremity. Repeat wound cultures finalized with MRSA and Pseudomonas. Discussed with infectious disease and will likely discharge home on Cipro, Flagyl, and doxycycline for a 2-week course and close outpatient follow-up. Urine culture showed Barbara albicans. Repeat urine culture is negative and Diflucan discontinued. Wound culture showed MRSA and Pseudomonas.. Blood cultures primarily showed no growth. Elevate lower extremities while at rest local wound care per vascular and ID recommendations PT/OT therapy evaluated and case management following regards to discharge planning. Patient would like to return home with her daughter with continued home care. Possible discharge planning in the next 24 hours The impression and plan of care has been dictated by Negrita Hollis, Nurse Practitioner as directed. Dr. Mehdi MD I have performed a history and examination and MDM of this patient, discussed the same with the dictator, and agree with the dictator's assessment and plan as written ,documented as a scribe. Based on total visit time, I have performed more than 50% of the visit. Objective - Vital Signs Vital signs: Vital Signs Temp 97.4 F L 02/25/24 01:07 Pulse 67 02/25/24 07:12 Resp 18 02/25/24 07:12 BP 163/80 02/25/24 07:12 Pulse Ox 96 02/25/24 07:12 FiO2 Intake & Output 02/24/24 02/25/24 02/25/24 18:59 06:59 18:59 Output Total 1400 450 Balance -1400 -450 Output: Urine 1400 450 Other: Voiding Method External Catheter External Catheter # Voids 1 - Labs CBC & Chem 7: 02/23/24 05:16 02/23/24 05:16 Labs: Microbiology - Last 24 Hours (Table) 02/21/24 14:20 Anaerobic Culture - Final Leg - Left Bacteroides fragilis
[2024-02-26 07:23] VITALS: TEMP 97.3
[2024-02-26 14:06] VITALS: PULSE 70; RESP 13
[2024-02-26 14:36] VITALS: BP 126/63
--- NOTE | 2024-02-29 09:30 | P.DS ---
Providers Date of admission: 02/18/24 16:25 Expected date of discharge: 02/26/24 Attending physician: Yee Harding Consults: 02/18/24 16:11 Consult Physician Urgent Consulting Provider: Kenton Longoria Consult Reason/Comments: Left leg cellulitis, VRE positive urine Do you want consulting provider notified?: Yes 02/21/24 13:55 Consult Physician Routine Consulting Provider: French Gusman Consult Reason/Comments: left leg wound , debridemnt and deep cultures Do you want consulting provider notified?: Yes Primary care physician: [facility] Course: Final diagnosis Left lower extremity wound infection. Patient had lacerated wound on 02/04/2024 and currently outpatient antibiotic course with Keflex. Culture showing Pseudomonas and MRSA VRE urinary tract infection. Patient had urine cultures done at PCPs office recently on 02/05/2024 showed VRE. Patient is allergic to penicillin. Repeat cultures are negative Atrial fibrillation paroxysmal on anticoagulation with Eliquis, currently rate controlled Osteoarthritis History of bilateral hip and knee replacement. Morbid obesity with BMI of 40.9 Glaucoma DVT prophylaxis patient is already on anticoagulation with Eliquis GI prophylaxis Full code Discharge disposition Patient is being discharged in a stable condition with guarded prognosis to home with home care. Patient will follow-up with Dr. Nirav Green in the outpatient setting upon discharge. Patient is to continue with wound care center Dr. Gusman as well as Dr. Longoria as scheduled. Patient will continue on oral antibiotics per ID recommendations. Total time taken is greater than 35 minutes. Hospital course This is a 78-year-old female who was recently admitted with lower extremity wound infection with concerns of surrounding cellulitis and failure of outpatient treatment. Patient culture showing Pseudomonas and MRSA and underwent debridement with vascular surgery Dr. Gusman while here. Patient also with recurrent urinary tract infections although repeat urine was negative. Patient continued to have lower extremity wound status post debridement with vascular surgery at bedside and will follow-up with the wound care center. Patient to continue with wound care along with Yordan wraps to lower extremities and elevating while at rest. Patient has been cleared by consultations. Please refer to other consultation notes for further HPI. Currently no reports of chest pain, shortness of breath, or palpitations. Patient is afebrile. No reports of nausea or vomiting and patient is tolerating diet. Patient will be discharged home today. Patient will be having home care although may benefit from rehab for continued strength and mobility along with extensive wound care. Patient does not want to go to rehab. Patient wants to try oral antibiotics as well and is high risk for readmissions given significant comorbidities. Physical exam: Gen: This is a 78-year-old female who is awake, alert and oriented x 3, well- developed, well-nourished, morbidly obese, elderly appearing HEENT: Head is atraumatic, normocephalic. Pupils equal, round. Sclerae is anicteric. NECK: Supple. No JVD. No lymphadenopathy. No thyromegaly. LUNGS: Clear to auscultation. No wheezes or rhonchi. No intercostal retractions. HEART: Regular rate and rhythm. No murmur. ABDOMEN: Soft. Obese bowel sounds are present. No masses. No tenderness. EXTREMITIES: No pedal edema. No calf tenderness. Generalized edema noted bilaterally lower extremities with significant improvements in redness and swelling NEUROLOGICAL: Patient is awake, alert and oriented x3. Cranial nerves 2 through 12 are grossly intact. Diffusely weak Please refer to medication reconciliation sheet for a list of medications. The impression and plan of care has been dictated by Negrita Hollis, Nurse Practitioner as directed. Dr. Mehdi MD I have performed a history and examination and MDM of this patient, discussed the same with the dictator, and agree with the dictator's assessment and plan as written ,documented as a scribe. Based on total visit time, I have performed more than 50% of the visit. Patient Condition at Discharge: Stable Plan - Discharge Summary Discharge Rx Participant: Yes New Discharge Prescriptions: New Doxycycline Monohydrate 100 mg PO BID 14 Days #28 cap Acetaminophen Tab [Tylenol] 650 mg PO Q6HR PRN tab PRN Reason: Mild Pain Or Fever > 100.5 Ciprofloxacin HCl [Cipro] 500 mg PO Q12HR 14 Days #28 tab metroNIDAZOLE [Flagyl] 500 mg PO TID 14 Days #42 tab Continue Brimonidine Tartrate [Alphagan P 0.2% Ophth Soln] 1 drop LEFT EYE BID Furosemide [Lasix] 40 mg PO DAILY Apixaban [Eliquis] 5 mg PO BID tab Atorvastatin [Lipitor] 40 mg PO DAILY tab Metoprolol Succinate (ER) [Toprol XL] 25 mg PO DAILY tab Omeprazole 20 mg PO AC-BRKFST prednisoLONE ACETATE 1% OPHTH [Pred Forte 1%] 1 drop RIGHT EYE QID Latanoprost Ophth [Xalatan 0.005%] 1 drop LEFT EYE HS Ferrous Sulfate [Iron (65 MG Elemental)] 325 mg PO DAILY Moxifloxacin HCl [Moxifloxacin 0.5%] 1 drop RIGHT EYE QID Losartan [Cozaar] 25 mg PO DAILY Dorzolamide-Timol 2.23%/0.68% [Cosopt] 1 drop LEFT EYE BID Ammonium Lactate Lotion [Lac-Hydrin 12% Lotion] 1 applic TOPICAL BID Nystatin 100,000 Unit/gm Powd [Mycostatin Powder] 1 applic TOPICAL BID Discharge Medication List Brimonidine Tartrate [Alphagan P 0.2% Ophth Soln] 1 drop LEFT EYE BID 01/27/23 [History] Furosemide [Lasix] 40 mg PO DAILY 07/08/23 [History] Apixaban [Eliquis] 5 mg PO BID tab 07/15/23 [Rx] Atorvastatin [Lipitor] 40 mg PO DAILY tab 07/15/23 [Rx] Metoprolol Succinate (ER) [Toprol XL] 25 mg PO DAILY tab 07/15/23 [Rx] Losartan [Cozaar] 25 mg PO DAILY 08/30/23 [History] Omeprazole 20 mg PO AC-BRKFST 08/30/23 [History] Dorzolamide-Timol 2.23%/0.68% [Cosopt] 1 drop LEFT EYE BID 12/18/23 [History] Latanoprost Ophth [Xalatan 0.005%] 1 drop LEFT EYE HS 12/18/23 [History] prednisoLONE ACETATE 1% OPHTH [Pred Forte 1%] 1 drop RIGHT EYE QID 12/18/23 [History] Ammonium Lactate Lotion [Lac-Hydrin 12% Lotion] 1 applic TOPICAL BID 02/18/24 [History] Ferrous Sulfate [Iron (65 MG Elemental)] 325 mg PO DAILY 02/18/24 [History] Moxifloxacin HCl [Moxifloxacin 0.5%] 1 drop RIGHT EYE QID 02/18/24 [History] Nystatin 100,000 Unit/gm Powd [Mycostatin Powder] 1 applic TOPICAL BID 02/18/24 [History] Acetaminophen Tab [Tylenol] 650 mg PO Q6HR PRN tab 02/26/24 [Rx] Ciprofloxacin HCl [Cipro] 500 mg PO Q12HR 14 Days #28 tab 02/26/24 [Rx] Doxycycline Monohydrate 100 mg PO BID 14 Days #28 cap 02/26/24 [Rx] metroNIDAZOLE [Flagyl] 500 mg PO TID 14 Days #42 tab 02/26/24 [Rx] Follow up Appointment(s)/Referral(s): [facility], [NON-STAFF] - 1-2 Days ([facility] will call you to schedule your in home nursing, physical and occupational therapy, and aide visits. ) Maye Scruggs MD [Primary Care Provider] - 1-2 days (office busy at time of discharge Please call to schedule appointment) French Gusman MD [STAFF PHYSICIAN] - 1 Week (office Busy at time of discharge. Please call to schedule appointment) Kenton Longoria MD [STAFF PHYSICIAN] - 1 Week (office busy at time of discharge Please call to schedule appointment ) Patient Instructions/Handouts: Acute Wound Care (DC), Antibiotic Medication Allergy (DC), Fall Prevention (DC) Activity/Diet/Wound Care/Special Instructions: Dressing changed: Every 48hr Aquacel Silver Rope and Aquacel silver pad with 4x4. wrapped on Kerlix and then Yordan bandage Activity limited until follow-up Follow-up with primary care provider on discharge Follow-up with the wound care center Continue with local wound care per Dr. Gusman Continue to elevate lower extremities while at rest Use Yordan wraps from lower extremities from toes up to the knees Follow-up with infectious disease outpatient Continue taking medications as prescribed Discharge Disposition: HOME WITH HOME HEALTH SERVICES
== END 2024-02-26 18:37 | disposition home health service (06) | DRG 571 ==
LOC: EC 11:30 → 4SSUR 16:25
PROVIDERS: ADMIT Internal Medicine; ATTEND Internal Medicine
PROC: 0JBP0ZZ Excision of Left Lower Leg Subcutaneous Tissue and Fascia, Open Approach (ICD-10-PCS; principal; 2024-02-21)
DX: L03.116 Cellulitis of left lower limb (principal); I96 Gangrene, not elsewhere classified; N39.0 Urinary tract infection, site not specified; Z16.21 Resistance to vancomycin; Z68.41 Body mass index [BMI] 40.0-44.9, adult; B96.5 Pseudomonas (aeruginosa) (mallei) (pseudomallei) as the cause of diseases classified elsewhere; B95.2 Enterococcus as the cause of diseases classified elsewhere; I48.91 Unspecified atrial fibrillation; I48.0 Paroxysmal atrial fibrillation; M19.90 Unspecified osteoarthritis, unspecified site; E66.01 Morbid (severe) obesity due to excess calories; B95.62 Methicillin resistant Staphylococcus aureus infection as the cause of diseases classified elsewhere; I10 Essential (primary) hypertension; Z79.01 Long term (current) use of anticoagulants; Z79.899 Other long term (current) drug therapy; Z87.440 Personal history of urinary (tract) infections; Z88.0 Allergy status to penicillin; Z96.1 Presence of intraocular lens; Z96.643 Presence of artificial hip joint, bilateral; H40.9 Unspecified glaucoma; Z96.653 Presence of artificial knee joint, bilateral; Z86.14 Personal history of Methicillin resistant Staphylococcus aureus infection; Z88.1 Allergy status to other antibiotic agents; Z88.8 Allergy status to other drugs, medicaments and biological substances; W19.XXXA Unspecified fall, initial encounter; Z98.51 Tubal ligation status
CPT/HCPCS: 36415; 80048; 80053; 81001; 81003; 83605; 83735; 85025; 85652; 86140; 87040; 87070; 87075; 87077; 87086; 87186; 87205; 99285

== ENCOUNTER 2024-10-31 20:29 | Inpatient (IN) | payer MEDICARE, OTHER ==
--- NOTE | 2024-10-31 20:57 | ED ---
Fall HPI - General Chief Complaint: Fall Stated Complaint: Fall Time Seen by Provider: 10/31/24 20:37 Source: patient, family, EMS, RN notes reviewed Mode of arrival: EMS Limitations: no limitations - History of Present Illness Initial Comments: This is an 79-year-old female who presents to the emergency department for fall. Patient's daughter was helping her out of the shower and in the process she felt very weak and essentially just sat down and her daughter could not get her up. She did not actually fall or hit her head, states that she essentially just tried to sit down to rest. Denies sustaining any injuries. Denies any pain. She reports feeling increasingly weak over the last couple of days. Denies any chest pain or shortness of breath. Patient's daughter states that she lives alone and is concerned about her being able to take care of herself in her current state and believes that she likely needs placement. Of note, she does h ave bruising over the right eye which is from glaucoma surgery about 10 days ago. MD Complaint: fall - Related Data Home Medications Medication Instructions Recorded Confirmed Brimonidine Tartrate [Alphagan P 1 drop LEFT EYE BID 01/27/23 02/18/24 0.2% Ophth Soln] Furosemide [Lasix] 40 mg PO DAILY 07/08/23 02/18/24 Losartan [Cozaar] 25 mg PO DAILY 08/30/23 02/18/24 Omeprazole 20 mg PO AC-BRKFST 08/30/23 02/18/24 Dorzolamide-Timol 2.23%/0.68% 1 drop LEFT EYE BID 12/18/23 02/18/24 [Cosopt] Latanoprost Ophth [Xalatan 0.005%] 1 drop LEFT EYE HS 12/18/23 02/18/24 prednisoLONE ACETATE 1% OPHTH 1 drop RIGHT EYE QID 12/18/23 02/18/24 [Pred Forte 1%] Ammonium Lactate Lotion 1 applic TOPICAL BID 02/18/24 02/18/24 [Lac-Hydrin 12% Lotion] Ferrous Sulfate [Iron (65 MG 325 mg PO DAILY 02/18/24 02/18/24 Elemental)] Moxifloxacin HCl [Moxifloxacin 1 drop RIGHT EYE QID 02/18/24 02/18/24 0.5%] Nystatin 100,000 Unit/gm Powd 1 applic TOPICAL BID 02/18/24 02/18/24 [Mycostatin Powder] Previous Rx's Medication Instructions Recorded Apixaban [Eliquis] 5 mg PO BID tab 07/15/23 Atorvastatin [Lipitor] 40 mg PO DAILY tab 07/15/23 Metoprolol Succinate (ER) [Toprol 25 mg PO DAILY tab 07/15/23 XL] Acetaminophen Tab [Tylenol] 650 mg PO Q6HR PRN tab 02/26/24 Ciprofloxacin HCl [Cipro] 500 mg PO Q12HR 14 Days #28 tab 02/26/24 Doxycycline Monohydrate 100 mg PO BID 14 Days #28 cap 02/26/24 metroNIDAZOLE [Flagyl] 500 mg PO TID 14 Days #42 tab 02/26/24 Allergies Allergy/AdvReac Type Severity Reaction Status Date / Time amoxicillin [From Augmentin] Allergy Rash/Hives Verified 10/31/24 20:37 clavulanic acid Allergy Rash/Hives Verified 10/31/24 20:37 [From Augmentin] Review of Systems ROS Statement: Those systems with pertinent positive or pertinent negative responses have been documented in the HPI. ROS Other: All systems not noted in ROS Statement are negative. Past Medical History Past Medical History: Atrial Fibrillation, Eye Disorder, Osteoarthritis (OA), Vascular Disorder Additional Past Medical History / Comment(s): lower leg edema History of Any Multi-Drug Resistant Organisms: VRE Date of last positivie culture/infection: 02/05/2024 MDRO Source:: blood culture Past Surgical History: Appendectomy, Joint Replacement, Tubal Ligation Additional Past Surgical History / Comment(s): madeline hip and knees total replacement; cat sx with lens implants both eyes, surgery for glaucoma Past Anesthesia/Blood Transfusion Reactions: No Reported Reaction Past Psychological History: No Psychological Hx Reported Smoking Status: Never smoker Past Alcohol Use History: None Reported Past Drug Use History: None Reported - Past Family History Father Additional Family Medical History / Comment(s): PASSED OF OLD AGE per patient Mother Additional Family Medical History / Comment(s): PASSED OF OLD AGE per patient General Exam Limitations: no limitations General appearance: alert, in no apparent distress Head exam: Present: atraumatic, normocephalic, normal inspection Respiratory exam: Present: normal lung sounds bilaterally. Absent: respiratory distress, wheezes, rales, rhonchi, stridor Cardiovascular Exam: Present: normal rhythm, bradycardia GI/Abdominal exam: Present: soft, normal bowel sounds. Absent: distended, tenderness, guarding, rebound, rigid Neurological exam: Present: alert, oriented X3, CN II-XII intact Psychiatric exam: Present: normal affect, normal mood Course Vital Signs 10/31/24 10/31/24 20:30 22:53 Temperature 98.6 F Pulse Rate 51 L 52 L Respiratory 16 18 Rate Blood Pressure 127/57 144/64 O2 Sat by Pulse 95 96 Oximetry Medical Decision Making - Medical Decision Making This is an 79-year-old female who presents to the emergency department for weakness. Was pt. sent in by a medical professional or institution? @ -No Did you speak to anyone other than the patient for history? @ -Family provided information about patient living alone and believing that she likely needs placement Did you review nursing and triage notes? @ -Yes, and I agree, it is accurate with regards to the patient's symptoms. Were old charts reviewed? @ -No Differential Diagnosis? @ -Differential Weakness: Hypoglycemia, shock, sepsis, hyponatremia, anemia, infection, FL, ETOH, adverse medicine reaction, overdose, stroke, this is not meant to be an all-inclusive list. EKG interpreted by me (3pts min.)? @ -EKG interpreted by me demonstrating the following: Sinus bradycardia. Ventricular rate 50 bpm, SC interval 284 ms, QRS duration 111 ms, QTc 412 ms. X-rays interpreted by me (1pt min.)? @ -Chest x-ray obtained, my interpretation identifies no localized consolidations or infiltrates. CT interpreted by me (1pt min.)? @ -Not obtained U/S interpreted by me (1pt. min.)? @ -Not obtained What testing was considered but not performed? (CT, X-rays, U/S, labs)? Why? @ -None What meds were considered but not given? Why? @ -None Did you discuss the management of the patient with other professionals? @ -Yes, Negrita Hollis with [facility], who accepts the patient for admission. Did you reconcile home meds? @ -No Was smoking cessation discussed for >3mins.? @ -No Was critical care preformed (if so, how long)? @ -No Were there social determinants of health that impacted care today? How? (Homelessness, low income, unemployed, alcoholism, drug addiction, transportation, low edu. Level, literacy, decrease access to med. care, half-way, rehab)? @ -No Was there de-escalation of care discussed even if they declined? (Discuss DNR or withdrawal of care, Hospice)? @ -No What co-morbidities impacted this encounter? (DM, HTN, Smoking, COPD, CAD, Cancer, CVA, Hep., AIDS, mental health diagnosis, sleep apnea, morbid obesity)? @ -A-fib, OA Was patient admitted / discharged? @ -Admitted. Patient denies sustaining any injuries during this event. She did not actually fall, but sat herself down because she did not have any energy and felt very weak. We subsequently proceeded with more of a workup related to the weakness. Lab work demonstrates slightly low hemoglobin, however this is improved when compared with prior. Lab work also demonstrates signs of dehydration and mild hyponatremia of 129. 500 mL bolus of normal saline administered. Urinalysis consistent with infection. Urine sent for culture and blood culture obtained. 1 g of ceftriaxone administered. Family is concerned about the patient's progressive weakness and inability to care for herself at home in her current state. She was admitted to medicine for weakness and further management of the UTI. Consult placed for occupational and physical therapy. Social work consulted as well for possible ECF placement. Case d iscussed with ED attending Dr. Burroughs. Undiagnosed new problem with uncertain prognosis? @ -None Drug Therapy requiring intensive monitoring for toxicity (Heparin, Nitro, Insulin, Cardizem)? @ -None Were any procedures done? @ -None Diagnosis/symptom? @ -Weakness, UTI Acute, or Chronic, or Acute on Chronic? @ -Acute Uncomplicated (without systemic symptoms) or Complicated (systemic symptoms)? @ -Complicated Side effects of treatment? @ -None Exacerbation, Progression, or Severe Exacerbation] @ -Not applicable Poses a threat to life or bodily function? @ -Yes, this is limiting her ability to function - Lab Data Result diagrams: 10/31/24 21:00 10/31/24 21:00 Lab Results 10/31/24 10/31/24 10/31/24 Range/Units 21:00 21:00 21:00 WBC 3.9 (3.8-10.6) k/uL RBC 3.18 L (3.80-5.40) m/uL Hgb 9.9 L (11.4-16.0) gm/dL Hct 30.2 L (34.0-46.0) % MCV 95.0 (80.0-100.0) fL MCH 31.1 (25.0-35.0) pg MCHC 32.7 (31.0-37.0) g/dL RDW 17.9 H (11.5-15.5) % Plt Count 108 L (150-450) k/uL MPV 9.1 Neutrophils % 75 % Lymphocytes % 18 % Monocytes % 6 % Eosinophils % 0 % Basophils % 0 % Neutrophils # 2.9 (1.3-7.7) k/uL Lymphocytes # 0.7 L (1.0-4.8) k/uL Monocytes # 0.2 (0-1.0) k/uL Eosinophils # 0.0 (0-0.7) k/uL Basophils # 0.0 (0-0.2) k/uL Anisocytosis Slight Macrocytosis Slight PT 11.4 (10.0-12.5) sec INR 1.0 (<1.2) APTT 30.4 H (22.0-30.0) sec Sodium 129 L (137-145) mmol/L Potassium 4.4 (3.5-5.1) mmol/L Chloride 98 (98-107) mmol/L Carbon Dioxide 24 (22-30) mmol/L Anion Gap 7 mmol/L BUN 45 H (7-17) mg/dL Creatinine 1.00 (0.52-1.04) mg/dL Est GFR (CKD-EPI)AfAm 62 (>60 ml/min/1.73 sqM) Est GFR (CKD-EPI)NonAf 54 (>60 ml/min/1.73 sqM) Glucose 79 (74-99) mg/dL Plasma Lactic Acid Shailesh (0.7-2.0) mmol/L Calcium 8.9 (8.4-10.2) mg/dL Magnesium 1.9 (1.6-2.3) mg/dL Total Bilirubin 0.9 (0.2-1.3) mg/dL AST 40 H (14-36) U/L ALT 42 H (4-34) U/L Alkaline Phosphatase 111 (38-126) U/L Troponin I (0.000-0.034) ng/mL Total Protein 6.6 (6.3-8.2) g/dL Albumin 3.5 (3.5-5.0) g/dL Urine Color Urine Appearance (Clear) Urine pH (5.0-8.0) Ur Specific Hammond (1.001-1.035) Urine Protein (Negative) Urine Glucose (UA) (Negative) Urine Ketones (Negative) Urine Blood (Negative) Urine Nitrite (Negative) Urine Bilirubin (Negative) Urine Urobilinogen (<2.0) mg/dL Ur Leukocyte Esterase (Negative) Urine RBC (0-5) /hpf Urine WBC (0-5) /hpf Ur Squamous Epith Cells (0-4) /hpf Amorphous Sediment (None) /hpf Urine Bacteria (None) /hpf Urine Mucus (None) /hpf 10/31/24 10/31/24 10/31/24 Range/Units 21:00 21:00 23:15 WBC (3.8-10.6) k/uL RBC (3.80-5.40) m/uL Hgb (11.4-16.0) gm/dL Hct (34.0-46.0) % MCV (80.0-100.0) fL MCH (25.0-35.0) pg MCHC (31.0-37.0) g/dL RDW (11.5-15.5) % Plt Count (150-450) k/uL MPV Neutrophils % % Lymphocytes % % Monocytes % % Eosinophils % % Basophils % % Neutrophils # (1.3-7.7) k/uL Lymphocytes # (1.0-4.8) k/uL Monocytes # (0-1.0) k/uL Eosinophils # (0-0.7) k/uL Basophils # (0-0.2) k/uL Anisocytosis Macrocytosis PT (10.0-12.5) sec INR (<1.2) APTT (22.0-30.0) sec Sodium (137-145) mmol/L Potassium (3.5-5.1) mmol/L Chloride (98-107) mmol/L Carbon Dioxide (22-30) mmol/L Anion Gap mmol/L BUN (7-17) mg/dL Creatinine (0.52-1.04) mg/dL Est GFR (CKD-EPI)AfAm (>60 ml/min/1.73 sqM) Est GFR (CKD-EPI)NonAf (>60 ml/min/1.73 sqM) Glucose (74-99) mg/dL Plasma Lactic Acid Shailesh 0.7 (0.7-2.0) mmol/L Calcium (8.4-10.2) mg/dL Magnesium (1.6-2.3) mg/dL Total Bilirubin (0.2-1.3) mg/dL AST (14-36) U/L ALT (4-34) U/L Alkaline Phosphatase (38-126) U/L Troponin I 0.013 (0.000-0.034) ng/mL Total Protein (6.3-8.2) g/dL Albumin (3.5-5.0) g/dL Urine Color Colorless Urine Appearance Cloudy H (Clear) Urine pH 5.5 (5.0-8.0) Ur Specific Hammond 1.010 (1.001-1.035) Urine Protein Trace H (Negative) Urine Glucose (UA) Negative (Negative) Urine Ketones Negative (Negative) Urine Blood Trace H (Negative) Urine Nitrite Positive H (Negative) Urine Bilirubin Negative (Negative) Urine Urobilinogen <2.0 (<2.0) mg/dL Ur Leukocyte Esterase Large H (Negative) Urine RBC 35 H (0-5) /hpf Urine WBC >182 H (0-5) /hpf Ur Squamous Epith Cells 6 H (0-4) /hpf Amorphous Sediment Rare H (None) /hpf Urine Bacteria Many H (None) /hpf Urine Mucus Rare H (None) /hpf - Radiology Data Radiology results: report reviewed, image reviewed Disposition Clinical Impression: Weakness, UTI (urinary tract infection) Disposition: ADMITTED IP TO THIS [facility] Referrals: Maye Scruggs MD [Primary Care Provider] - 1-2 days
[2024-10-31 21:09] LABS: Anisocytosis Slight; Basophils % (A) 0 %; Eosinophils % (A) 0 %; HCT 30.2 % (34.0-46.0); HGB 9.9 gm/dL (11.4-16.0); Lymphocytes # (A) 0.7 k/uL (1.0-4.8); Lymphocytes % (A) 18 %; MCH 31.1 pg (25.0-35.0); MCHC 32.7 g/dL (31.0-37.0); Macrocytosis Slight; Mean Platelet Volume 9.1; Monocytes # (A) 0.2 k/uL (0-1.0); Monocytes % (A) 6 %; Neutrophils # (A) 2.9 k/uL (1.3-7.7); Neutrophils % (A) 75 %; Platelet Count 108 k/uL (150-450); RBC 3.18 m/uL (3.80-5.40); RDW 17.9 % (11.5-15.5); WBC 3.9 k/uL (3.8-10.6)
[2024-10-31 21:17] LABS: Partial Thromboplastin Time 30.4 sec (22.0-30.0); Prothrombin Time 11.4 sec (10.0-12.5)
[2024-10-31 21:33] LABS: ALT 42 U/L (4-34); AST 40 U/L (14-36); African American GFR (CKD) 62 (>60 ml/min/1.73 sqM); Albumin 3.5 g/dL (3.5-5.0); Alkaline Phosphatase 111 U/L (38-126); Anion Gap 7 mmol/L; Blood Urea Nitrogen 45 mg/dL (7-17); Calcium 8.9 mg/dL (8.4-10.2); Carbon Dioxide 24 mmol/L (22-30); Chloride 98 mmol/L (98-107); Glucose 79 mg/dL (74-99); Magnesium 1.9 mg/dL (1.6-2.3); Non-African American GFR(CKD) 54 (>60 ml/min/1.73 sqM); Potassium 4.4 mmol/L (3.5-5.1); Sodium 129 mmol/L (137-145); Total Bilirubin 0.9 mg/dL (0.2-1.3); Total Protein 6.6 g/dL (6.3-8.2)
--- NOTE | 2024-10-31 23:34 | XR ---
EXAMINATION TYPE: XR chest 2V DATE OF EXAM: 10/31/2024 9:34 PM CLINICAL INDICATION:Female, 79 years old with history of Weakness; [facility] COMPARISON: Chest radiographs from TECHNIQUE: XR chest 2V Frontal view of the chest. FINDINGS: Lungs/Pleura: There is no evidence of pneumothorax. Pulmonary vascularity: Unremarkable. Heart/mediastinum: Cardiomediastinal silhouette is mildly enlarged. Atherosclerotic calcifications a re seen in the aorta. Musculoskeletal: No acute osseous pathology. Other findings: None IMPRESSION: Mild cardiomegaly. [facility], , 10/31/2024 11:31 PM
[2024-11-01 00:06] LABS: Amorphous Sediment,Urine Rare /hpf; Appearance,Urine Cloudy (Clear); Bacteria,Urine Many /hpf; Bilirubin,Urine Negative (Negative); Blood,Urine Trace (Negative); Color,Urine Colorless; Glucose,Urine (UA) Negative (Negative); Ketones,Urine Negative (Negative); Leukocyte Esterase,Urine Large (Negative); Mucus,Urine Rare /hpf; Nitrite,Urine Positive (Negative); PH, Urine 5.5 (5.0-8.0); Protein,Urine Trace (Negative); RBC,Urine 35 /hpf (0-5); Squamous Epithelial Cell,Urine 6 /hpf (0-4); Urobilinogen,Urine <2.0 mg/dL (<2.0); WBC,Urine >182 /hpf (0-5)
[2024-11-01] MEDS: SODIUM CHLORIDE 0.9% 500 ML 500 ML IV STA (00:08)
[2024-11-01] MEDS ORDERED: MORPHINE SULFATE 4 MG/ML SYRINGE IV PRN (00:15)
[2024-11-01] MEDS ORDERED: ONDANSETRON 4 MG/2 ML VIAL IVP PRN (00:15)
[2024-11-01] MEDS ORDERED: HYDROcodone/APAP 5-325MG 1 EACH TAB PO PRN (00:15)
[2024-11-01] MEDS ORDERED: NALOXONE 0.4 MG/ML 1 ML VIAL IV PRN (00:15)
[2024-11-01] MEDS: PANTOPRAZOLE 40 MG/10 ML VIAL IV SCH (08:10)
[2024-11-01] MEDS: ACETAMINOPHEN TAB 325 MG TAB PO PRN (08:18)
[2024-11-01] MEDS: APIXABAN 5 MG TAB PO SCH (10:41)
[2024-11-01] MEDS: ATORVASTATIN 40 MG TAB PO SCH (10:42)
[2024-11-01] MEDS: LEVOTHYROXINE 25 MCG TAB PO SCH (10:42)
[2024-11-01] MEDS: SODIUM CHLORIDE 0.9% 1,000 ML IV SCH (10:42)
[2024-11-01] MEDS: PANTOPRAZOLE 40 MG TABLET PO SCH (10:42)
[2024-11-01] MEDS: FERROUS SULFATE 325 MG TAB PO SCH (10:42)
[2024-11-01 10:46] LABS: African American GFR (CKD) 66 (>60 ml/min/1.73 sqM); Anion Gap 4 mmol/L; Blood Urea Nitrogen 34 mg/dL (7-17); Calcium 8.7 mg/dL (8.4-10.2); Carbon Dioxide 26 mmol/L (22-30); Chloride 105 mmol/L (98-107); Glucose 59 mg/dL (74-99); Non-African American GFR(CKD) 58 (>60 ml/min/1.73 sqM); Potassium 3.8 mmol/L (3.5-5.1); Sodium 135 mmol/L (137-145)
--- NOTE | 2024-11-01 19:17 | P.HPIM ---
History of Present Illness H&P Date: 11/01/24 This is a pleasant 79-year-old female medical history significant for atrial fibrillation, heart failure, retinal detachment with repair twice. Patient presents to the hospital with complaints of a week long history of generalized weakness frequent falls at home. Patient's daughter has also had some confusion. Some of the medical history is obtained from patient's daughter at the bedside. Patient does state that she is having some urinary burning and mild suprapubic abdominal discomfort. She is not having any nausea vomiting or diarrhea. She denies any chest pain or shortness of breath. Patient does state that she has had multiple falls over the last few days is concerned that she may have a urinary tract infection as she has behaved similarly in the past when she had a urinary tract infection. Her daughter is at the bedside and helps provide the medical history. Patient does live alone. Chest x-ray reveals cardiomegaly with no significant acute cardiopulmonary process. Initial blood work reveals hemoglobin of 9, sodium of 129, BUN of 45 creatinine of 1.00, AST of 40 ALT of 42. Troponin level was negative. Urinalysis is significantly abnormal cloudy urine with trace protein trace blood positive for nitrates large leukocyte Estrace 35 RBCs greater than 182 WBCs with many bacteria. Patient was given a gram of Rocephin while in the ER. Patient was admitted to the hospital under internal medicine. Patient also received a 1 L fluid bolus. She has remained afebrile. Upon assessment patient is noted to have some periorbital bruising on the right per daughter patient underwent surgery to repair a detached retina 10 days ago. Does have chronic lymphedema but concern for mild underlying celllulitis of the lower extremities. REVIEW OF SYSTEMS: CONSTITUTIONAL: No fever, no malaise, no fatigue. HEENT: No recent visual problems or hearing problems. Denied any sore throat. CARDIOVASCULAR: No chest pain, orthopnea, PND, no palpitations, no syncope. PULMONARY: No shortness of breath, no cough, no hemoptysis. GASTROINTESTINAL: No diarrhea, no nausea, no vomiting, no abdominal pain. NEUROLOGICAL: No headaches, no weakness, no numbness. HEMATOLOGICAL: Denies any bleeding or petechiae. GENITOURINARY: Denies any burning micturition, frequency, or urgency. MUSCULOSKELETAL/RHEUMATOLOGICAL: Denies any joint pain, swelling, or any muscle pain. ENDOCRINE: Denies any polyuria or polydipsia. The rest of the 14-point review of systems is negative. PHYSICAL EXAMINATION: GENERAL: The patient is alert and oriented x3, not in any acute distress. Well developed, well nourished. HEENT: Pupils are round and equally reacting to light. EOMI. No scleral icterus. No conjunctival pallor. Normocephalic, atraumatic. No pharyngeal erythema. No thyromegaly. CARDIOVASCULAR: S1 and S2 present. No murmurs, rubs, or gallops. PULMONARY: Chest is clear to auscultation, no wheezing or crackles. ABDOMEN: Soft, nontender, nondistended, normoactive bowel sounds. No palpable organomegaly. MUSCULOSKELETAL: No joint swelling or deformity. EXTREMITIES: No cyanosis, clubbing, or pedal edema. NEUROLOGICAL: Gross neurological examination did not reveal any focal deficits. Generalized weakness SKIN: No rashes. Mild erythema of the lower extremity Assessment and plan Acute urinary tract infection with sepsis-on admission Altered mental status secondary to metabolic encephalopathy and infection Frequent falls at home due to diffuse weakness from dehydration/infection Acute kidney injury mild, prerenal secondary to dehydration Hypovolemic hyponatremia Sinus bradycardia with first degree AV block nonsymptomatic patient's beta- batsheva will be held Paroxysmal atrial fibrillation anticoagulant Eliquis on outpatient basis History of glaucoma History of retinal detachment x 2 with most recent surgical repair 10 days ago Chronic bilateral Lower extremity lymphadenopathy Chronic diastolic dysfunction with no acute exacerbation Mild lower extremity cellulitis Obesity Hypothyroidism Hyperlipidemia GI prophylaxis DVT prophylaxis Full Code Plan Continue IV ceftriaxone 2gm q24 hour Pending urine culture and blood culture Resume appropriate home medications Betablocker has been placed on hold due to the bradycardia Resume prenisolone eye gtts in the right eye at as part of patients post op instructions form her recent eye surgery Yordan wrap bilateral lower extremities PT/OT consultation Hold lasix and continue gentle hydration normal saline at 50 mls/hr Repeat BMP in the AM PT/OT consultation The impression and plan of care has been dictated by Haylie Bernabe, Nurse Practitioner as directed. Dr. Carmencita MD I have performed a history and physical examination and medical decision making of this patient, discussed the same with the dictator, and agree with the dictators assessment and plan as written, documented as a scribe. Based on total visit time, I have performed more than 50% of this visit. Past Medical History Past Medical History: Atrial Fibrillation, Eye Disorder, Osteoarthritis (OA), Vascular Disorder Additional Past Medical History / Comment(s): lower leg edema History of Any Multi-Drug Resistant Organisms: VRE Date of last positivie culture/infection: 02/05/2024 MDRO Source:: blood culture Past Surgical History: Appendectomy, Joint Replacement, Tubal Ligation Additional Past Surgical History / Comment(s): madeline hip and knees total repl acement; cat sx with lens implants both eyes, surgery for glaucoma Past Anesthesia/Blood Transfusion Reactions: No Reported Reaction Past Psychological History: No Psychological Hx Reported Smoking Status: Never smoker Past Alcohol Use History: None Reported Past Drug Use History: None Reported - Past Family History Father Additional Family Medical History / Comment(s): PASSED OF OLD AGE per patient Mother Additional Family Medical History / Comment(s): PASSED OF OLD AGE per patient Medications and Allergies Home Medications Medication Instructions Recorded Confirmed Type Furosemide [Lasix] 40 mg PO DAILY 07/08/23 11/01/24 History Apixaban [Eliquis] 5 mg PO BID tab 07/15/23 11/01/24 Rx Atorvastatin [Lipitor] 40 mg PO DAILY tab 07/15/23 11/01/24 Rx Metoprolol Succinate (ER) [Toprol 25 mg PO DAILY tab 07/15/23 11/01/24 Rx XL] Omeprazole 20 mg PO AC-BRKFST 08/30/23 11/01/24 History Latanoprost Ophth [Xalatan 0.005%] 1 drop BOTH EYES HS 12/18/23 11/01/24 History Ferrous Sulfate [Iron (65 MG 325 mg PO DAILY 02/18/24 11/01/24 History Elemental)] Levothyroxine Sodium [Synthroid] 25 mcg PO DAILY 11/01/24 11/01/24 History Allergies Allergy/AdvReac Type Severity Reaction Status Date / Time amoxicillin [From Augmentin] Allergy Rash/Hives Verified 11/01/24 09:50 clavulanic acid Allergy Rash/Hives Verified 11/01/24 09:50 [From Augmentin] Physical Exam Vitals: Vital Signs Temp Pulse Resp BP Pulse Ox 11/01/24 18:46 46 L 18 144/68 96 11/01/24 17:40 38 L 18 124/54 95 11/01/24 17:00 41 L 12 117/55 96 11/01/24 16:00 43 L 12 109/63 96 11/01/24 15:00 41 L 12 107/57 95 11/01/24 12:32 45 L 18 117/63 95 11/01/24 10:48 49 L 20 157/72 96 11/01/24 08:14 98 F 51 L 20 148/71 98 11/01/24 06:24 53 L 15 148/72 96 10/31/24 22:53 52 L 18 144/64 96 10/31/24 20:30 98.6 F 51 L 16 127/57 95 Results CBC & Chem 7: 10/31/24 21:00 11/01/24 10:10 Labs: Abnormal Lab Results - Last 24 Hours (Table) 10/31/24 10/31/24 10/31/24 Range/Units 21:00 21:00 21:00 RBC 3.18 L (3.80-5.40) m/uL Hgb 9.9 L (11.4-16.0) gm/dL Hct 30.2 L (34.0-46.0) % RDW 17.9 H (11.5-15.5) % Plt Count 108 L (150-450) k/uL Lymphocytes # 0.7 L (1.0-4.8) k/uL APTT 30.4 H (22.0-30.0) sec Sodium 129 L (137-145) mmol/L BUN 45 H (7-17) mg/dL Glucose (74-99) mg/dL AST 40 H (14-36) U/L ALT 42 H (4-34) U/L Urine Appearance (Clear) Urine Protein (Negative) Urine Blood (Negative) Urine Nitrite (Negative) Ur Leukocyte Esterase (Negative) Urine RBC (0-5) /hpf Urine WBC (0-5) /hpf Ur Squamous Epith Cells (0-4) /hpf Amorphous Sediment (None) /hpf Urine Bacteria (None) /hpf Urine Mucus (None) /hpf 10/31/24 11/01/24 Range/Units 23:15 10:10 RBC (3.80-5.40) m/uL Hgb (11.4-16.0) gm/dL Hct (34.0-46.0) % RDW (11.5-15.5) % Plt Count (150-450) k/uL Lymphocytes # (1.0-4.8) k/uL APTT (22.0-30.0) sec Sodium 135 L (137-145) mmol/L BUN 34 H (7-17) mg/dL Glucose 59 L (74-99) mg/dL AST (14-36) U/L ALT (4-34) U/L Urine Appearance Cloudy H (Clear) Urine Protein Trace H (Negative) Urine Blood Trace H (Negative) Urine Nitrite Positive H (Negative) Ur Leukocyte Esterase Large H (Negative) Urine RBC 35 H (0-5) /hpf Urine WBC >182 H (0-5) /hpf Ur Squamous Epith Cells 6 H (0-4) /hpf Amorphous Sediment Rare H (None) /hpf Urine Bacteria Many H (None) /hpf Urine Mucus Rare H (None) /hpf Assessment and Plan Time with Patient: Greater than 30
[2024-11-01 22:03] LABS: Glucose,Whole Blood 126 mg/dL (70-110)
[2024-11-01] MEDS: prednisoLONE ACETATE 1% OPHTH DROPS 5 ML BTL RIGHT EYE SCH (23:11)
[2024-11-01] MEDS: LATANOPROST 0.005% OPHTH DROPS 2.5 ML BTL BOTH EYES SCH (23:11)
[2024-11-02 06:06] LABS: Glucose,Whole Blood 73 mg/dL (70-110)
[2024-11-02 07:10] LABS: ALT 37 U/L (4-34); AST 34 U/L (14-36); African American GFR (CKD) 60 (>60 ml/min/1.73 sqM); Albumin 3.1 g/dL (3.5-5.0); Alkaline Phosphatase 116 U/L (38-126); Anion Gap 5 mmol/L; Blood Urea Nitrogen 29 mg/dL (7-17); Carbon Dioxide 27 mmol/L (22-30); Chloride 105 mmol/L (98-107); Glucose 66 mg/dL (74-99); Non-African American GFR(CKD) 52 (>60 ml/min/1.73 sqM); Potassium 4.8 mmol/L (3.5-5.1); Sodium 137 mmol/L (137-145); Total Bilirubin 0.8 mg/dL (0.2-1.3); Total Protein 6.1 g/dL (6.3-8.2)
[2024-11-02] MEDS: NYSTATIN 100,000 UNIT/GM POWD 15 GM TOPICAL SCH (08:38)
[2024-11-02 11:16] LABS: Glucose,Whole Blood 105 mg/dL (70-110)
[2024-11-02 16:50] LABS: Glucose,Whole Blood 116 mg/dL (70-110)
--- NOTE | 2024-11-02 21:26 | P.PN ---
Subjective Progress Note Date: 11/02/24 This is a pleasant 79-year-old female medical history significant for atrial fibrillation, heart failure, retinal detachment with repair twice. Patient presents to the hospital with complaints of a week long history of generalized weakness frequent falls at home. Patient's daughter has also had some con fusion. Some of the medical history is obtained from patient's daughter at the bedside. Patient does state that she is having some urinary burning and mild suprapubic abdominal discomfort. She is not having any nausea vomiting or diarrhea. She denies any chest pain or shortness of breath. Patient does state that she has had multiple falls over the last few days is concerned that she may have a urinary tract infection as she has behaved similarly in the past when she had a urinary tract infection. Her daughter is at the bedside and helps provide the medical history. Patient does live alone. Chest x-ray reveals cardiomegaly with no significant acute cardiopulmonary process. Initial blood work reveals hemoglobin of 9, sodium of 129, BUN of 45 creatinine of 1.00, AST of 40 ALT of 42. Troponin level was negative. Urinalysis is significantly abnormal cloudy urine with trace protein trace blood positive for nitrates large leukocyte Estrace 35 RBCs greater than 182 WBCs with many bacteria. Patient was given a gram of Rocephin while in the ER. Patient was admitted to the hospital under internal medicine. Patient also received a 1 L fluid bolus. She has remained afebrile. Upon assessment patient is noted to have some periorbital bruising on the right per daughter patient underwent surgery to repair a detached retina 10 days ago. Does have chronic lymphedema but concern for mild underlying celllulitis of the lower extremities. 11/02/2024 Patient is evaluated today sitting up in the chair with family at the bedside. Reports improvement in her urinary symptoms. Urine culture pending. Continues on IV ceftriaxone. Speech therapy had evaluated the patient recommending regular diet with thin liquids however NO straws and patient to be sitting upright with 1:1 assistance. Sodium now 127, BUN 29, creatinine 1.02. LFTs are near normal. REVIEW OF SYSTEMS: CONSTITUTIONAL: No fever, no malaise, no fatigue. HEENT: No recent visual problems or hearing problems. Denied any sore throat. CARDIOVASCULAR: No chest pain, orthopnea, PND, no palpitations, no syncope. PULMONARY: No shortness of breath, no cough, no hemoptysis. GASTROINTESTINAL: No diarrhea, no nausea, no vomiting, no abdominal pain. NEUROLOGICAL: No headaches, no weakness, no numbness. PHYSICAL EXAMINATION: GENERAL: The patient is alert and oriented x3, not in any acute distress. Well developed, well nourished. HEENT: Pupils are round and equally reacting to light. EOMI. No scleral icterus. No conjunctival pallor. Normocephalic, atraumatic. No pharyngeal erythema. No thyromegaly. CARDIOVASCULAR: S1 and S2 present. No murmurs, rubs, or gallops. PULMONARY: Chest is clear to auscultation, no wheezing or crackles. ABDOMEN: Soft, nontender, nondistended, normoactive bowel sounds. No palpable or ganomegaly. MUSCULOSKELETAL: No joint swelling or deformity. EXTREMITIES: No cyanosis, clubbing, or pedal edema. NEUROLOGICAL: Gross neurological examination did not reveal any focal deficits. Generalized weakness SKIN: No rashes. Mild erythema of the lower extremity Assessment and plan Acute urinary tract infection with sepsis-on admission Altered mental status secondary to metabolic encephalopathy and infection Frequent falls at home due to diffuse weakness from dehydration/infection Acute kidney injury mild, prerenal secondary to dehydration Hypovolemic hyponatremia Sinus bradycardia with first degree AV block nonsymptomatic patient's beta- batsheva will be held Paroxysmal atrial fibrillation anticoagulant Eliquis on outpatient basis History of glaucoma History of retinal detachment x 2 with most recent surgical repair 10 days ago Chronic bilateral Lower extremity lymphadenopathy Chronic diastolic dysfunction with no acute exacerbation Mild lower extremity cellulitis Obesity Hypothyroidism Hyperlipidemia GI prophylaxis DVT prophylaxis Full Code Plan Continue IV ceftriaxone 2gm q24 hour Preliminary urine culture revealing gram negative bacilli Resume appropriate home medications Betablocker has been placed on hold due to the bradycardia Resume prenisolone eye gtts in the right eye at HS as part of patients post op instructions form her recent eye surgery Yordan wrap bilateral lower extremities PT/OT consultation Hold lasix and continue gentle hydration normal saline at 50 mls/hr. Will continue fluids for one more day any resume oral lasix tomorrow Repeat BMP in the AM PT/OT consultation recommending subacute rehab and social work to follow up with the patient The impression and plan of care has been dictated by Haylie Bernabe, Nurse Practitioner as directed. Dr. Carmencita MD I have performed a history and physical examination and medical decision making of this patient, discussed the same with the dictator, and agree with the dictators assessment and plan as written, documented as a scribe. Based on total visit time, I have performed more than 50% of this visit. Objective - Vital Signs Vital signs: Vital Signs Temp 96.8 F L 11/02/24 16:12 Pulse 65 11/02/24 16:12 Resp 14 11/02/24 16:12 BP 166/53 11/02/24 16:12 Pulse Ox 95 11/02/24 16:12 FiO2 Intake & Output 11/02/24 11/02/24 11/03/24 06:59 18:59 06:59 Intake Total 10 720 Output Total 950 500 Balance -940 220 Weight 103 kg Intake: IV 10 Invasive Line 1 10 Oral 720 Output: Urine 950 500 Other: Voiding Method External Catheter External Catheter # Voids 1 1 - Labs CBC & Chem 7: 10/31/24 21:00 11/02/24 05:26 Labs: Abnormal Lab Results - Last 24 Hours (Table) 11/01/24 11/02/24 11/02/24 Range/Units 22:02 05:26 16:46 BUN 29 H (7-17) mg/dL Glucose 66 L (74-99) mg/dL POC Glucose (mg/dL) 126 H 116 H (70-110) mg/dL ALT 37 H (4-34) U/L Total Protein 6.1 L (6.3-8.2) g/dL Albumin 3.1 L (3.5-5.0) g/dL Microbiology - Last 24 Hours (Table) 11/01/24 00:52 Blood Culture - Preliminary Blood 10/31/24 23:15 Urine Culture - Preliminary Urine,Clean Catch Gram Neg Bacilli Assessment and Plan Time with Patient: Less than 30
[2024-11-03 07:41] LABS: African American GFR (CKD) 62 (>60 ml/min/1.73 sqM); Anion Gap 6 mmol/L; Blood Urea Nitrogen 23 mg/dL (7-17); Calcium 9.3 mg/dL (8.4-10.2); Carbon Dioxide 28 mmol/L (22-30); Chloride 105 mmol/L (98-107); Glucose 74 mg/dL (74-99); Non-African American GFR(CKD) 54 (>60 ml/min/1.73 sqM); Potassium 4.9 mmol/L (3.5-5.1); Sodium 139 mmol/L (137-145)
[2024-11-03] MEDS: hydrALAZINE HCL 25 MG TAB PO STA (13:28)
[2024-11-03 16:52] LABS: Glucose,Whole Blood 98 mg/dL (70-110)
--- NOTE | 2024-11-03 21:06 | P.PN ---
Subjective Progress Note Date: 11/03/24 This is a pleasant 79-year-old female medical history significant for atrial fibrillation, heart failure, retinal detachment with repair twice. Patient presents to the hospital with complaints of a week long history of generalized weakness frequent falls at home. Patient's daughter has also had some con fusion. Some of the medical history is obtained from patient's daughter at the bedside. Patient does state that she is having some urinary burning and mild suprapubic abdominal discomfort. She is not having any nausea vomiting or diarrhea. She denies any chest pain or shortness of breath. Patient does state that she has had multiple falls over the last few days is concerned that she may have a urinary tract infection as she has behaved similarly in the past when she had a urinary tract infection. Her daughter is at the bedside and helps provide the medical history. Patient does live alone. Chest x-ray reveals cardiomegaly with no significant acute cardiopulmonary process. Initial blood work reveals hemoglobin of 9, sodium of 129, BUN of 45 creatinine of 1.00, AST of 40 ALT of 42. Troponin level was negative. Urinalysis is significantly abnormal cloudy urine with trace protein trace blood positive for nitrates large leukocyte Estrace 35 RBCs greater than 182 WBCs with many bacteria. Patient was given a gram of Rocephin while in the ER. Patient was admitted to the hospital under internal medicine. Patient also received a 1 L fluid bolus. She has remained afebrile. Upon assessment patient is noted to have some periorbital bruising on the right per daughter patient underwent surgery to repair a detached retina 10 days ago. Does have chronic lymphedema but concern for mild underlying celllulitis of the lower extremities. 11/02/2024 Patient is evaluated today sitting up in the chair with family at the bedside. Reports improvement in her urinary symptoms. Urine culture pending. Continues on IV ceftriaxone. Speech therapy had evaluated the patient recommending regular diet with thin liquids however NO straws and patient to be sitting upright with 1:1 assistance. Sodium now 127, BUN 29, creatinine 1.02. LFTs are near normal. 11/03/2024 Patient evaluated today sitting up in the chair. Urine culture comes back showing klebsiella pneumoniae and continues on IV ceftriaxone. Patient refusing care today. Hydralazine was ordered and patient had refused. Plan is for d ischarge to [facility] tomorrow after 3 night hospital stay. REVIEW OF SYSTEMS: CONSTITUTIONAL: No fever, no malaise, no fatigue. HEENT: No recent visual problems or hearing problems. Denied any sore throat. CARDIOVASCULAR: No chest pain, orthopnea, PND, no palpitations, no syncope. PULMONARY: No shortness of breath, no cough, no hemoptysis. GASTROINTESTINAL: No diarrhea, no nausea, no vomiting, no abdominal pain. NEUROLOGICAL: No headaches, no weakness, no numbness. PHYSICAL EXAMINATION: GENERAL: The patient is alert and oriented x3, not in any acute distress. Well developed, well nourished. HEENT: Pupils are round and equally reacting to light. EOMI. No scleral icterus. No conjunctival pallor. Normocephalic, atraumatic. No pharyngeal erythema. No thyromegaly. CARDIOVASCULAR: S1 and S2 present. No murmurs, rubs, or gallops. PULMONARY: Chest is clear to auscultation, no wheezing or crackles. ABDOMEN: Soft, nontender, nondistended, normoactive bowel sounds. No palpable organomegaly. MUSCULOSKELETAL: No joint swelling or deformity. EXTREMITIES: No cyanosis, clubbing, or pedal edema. NEUROLOGICAL: Gross neurological examination did not reveal any focal deficits. Generalized weakness SKIN: No rashes. Mild erythema of the lower extremity Assessment and plan Acute urinary tract infection with sepsis-on admission Altered mental status secondary to metabolic encephalopathy and infection Frequent falls at home due to diffuse weakness from dehydration/infection Acute kidney injury mild, prerenal secondary to dehydration Hypovolemic hyponatremia Sinus bradycardia with first degree AV block nonsymptomatic patient's beta- batsheva will be held Paroxysmal atrial fibrillation anticoagulant Eliquis on outpatient basis History of glaucoma History of retinal detachment x 2 with most recent surgical repair 10 days ago Chronic bilateral Lower extremity lymphadenopathy Chronic diastolic dysfunction with no acute exacerbation Mild lower extremity cellulitis Obesity Hypothyroidism Hyperlipidemia GI prophylaxis DVT prophylaxis Full Code Plan Continue IV ceftriaxone 2gm q24 hour Resume appropriate home medications Betablocker has been placed on hold due to the bradycardia Resume prenisolone eye gtts in the right eye at HS as part of patients post op instructions form her recent eye surgery Yordan wrap bilateral lower extremities PT/OT consultation Stop fluids and resume lasix in the AM Repeat BMP in the AM PT/OT consultation recommending subacute rehab and plan is for discharge to [facility] tomorrow The impression and plan of care has been dictated by Haylie Bernabe Nurse Practitioner as directed. Dr. Carmencita MD I have performed a history and physical examination and medical decision making of this patient, discussed the same with the dictator, and agree with the dictators assessment and plan as written, documented as a scribe. Based on total visit time, I have performed more than 50% of this visit. Objective - Vital Signs Vital signs: Vital Signs Temp 97.5 F L 11/03/24 16:41 Pulse 71 11/03/24 16:41 Resp 14 11/03/24 16:41 BP 177/85 11/03/24 16:41 Pulse Ox 96 11/03/24 16:41 FiO2 Intake & Output 11/03/24 11/03/24 11/04/24 06:59 18:59 06:59 Intake Total 10 Output Total 500 250 Balance -490 -250 Intake: IV 10 Invasive Line 1 10 Output: Urine 500 250 Other: Voiding Method External Catheter External Catheter # Bowel Movements 0 - Labs CBC & Chem 7: 10/31/24 21:00 11/03/24 05:24 Labs: Abnormal Lab Results - Last 24 Hours (Table) 11/03/24 Range/Units 05:24 BUN 23 H (7-17) mg/dL Microbiology - Last 24 Hours (Table) 11/01/24 00:52 Blood Culture - Preliminary Blood 10/31/24 23:15 Urine Culture - Final Urine,Clean Catch Klebsiella pneumoniae Assessment and Plan Time with Patient: Less than 30
[2024-11-03] MEDS: SODIUM CHLORIDE 0.9% 1,000 ML IV SCH (22:34)
--- NOTE | 2024-11-04 10:27 | CDI ---
Date: 11/04/2024 From: Tiana Henry1 Email: [email or web address] Admit Date: 11/01/2024 06:45:00 AM Patient Name: Ashley Lang Visit Number: [id number] Discharge Date: N/A ATTENTION: The Clinical Documentation Specialists (CDI) and [facility] Coding Staff appreciate your assistance in clarifying documentation. Please respond to the clarification below the line at the bottom and electronically sign. The CDI & [facility] Coding staff will review the response and follow-up if needed. Please note: Queries are made part of the Legal Health Record. If you have any questions, please contact the author of this message via ITS. Dr. Yarelis Tse, Sepsis is documented H&P Report on 11/01/2024 - which may lack sufficient clinical evidence/support in the medical record. Additional clarification is requested. History/Risk Factors: 79-year-old female presented to [facility] ED for evaluation due to generalized weakness and frequent falls. PMH: Atrial fibrillation, chronic heart failure, obesity, hypothyroidism, hyperlipidemia Inpatient Admission Date/Time: 11/01/2024 @ 21:45 Clinical Indicators: Documentation Location: Electronic Medical Record Vital Sign Trend: Date Time Temperature HR RR BP SpO2 10/31/2024 20:30 98.6 F (Oral) 51 16 127/80 95% on Room Air 11/01/2024 21:45 92.0 F (Rectal) 56 18 158/75 95% on Room Air 11/02/2024 08:29 97.4 F (Oral) 71 14 154/57 93% on Room Air 11/03/2024 08:12 97.4 F (Oral) 66 14 187/75 94% on Room Air 11/03/2024 19:20 97.4 F (Axillary) 81 18 126/84 97% on Room Air 11/04/2024 07:57 97.0 F (Temporal) 64 14 180/75 94% on Room Air WBC Trend: (10/31/2024) 3.9 No Additional Results Noted Other Clinical Indicators: Blood Cultures (Collected on 11/01/2024): No growth after 48 hours Urine Cultures (Collected 10/31/2024): Klebsiella pneumoniae H&P Report (11/01/2024): o Acute urinary tract infection with sepsis on admission o Altered mental status secondary to metabolic encephalopathy and infection o Frequent falls at home due to diffuse weakness and dehydration/infection Treatment: Rocephin 2g IVPB Every 24 Hours Other Treatments this Admission: Tylenol 650mg Oral Every 6 Hours As Needed (Received 1 Dose on 11/01/2024) After work up and study, please clarify which diagnosis is most appropriate? [ ] Sepsis ruled out [ ] Sepsis is a valid diagnosis as evidenced by the following (please add rationale): [ ] Other, please specify [ ] Unable to determine SIRS Criteria (2 or more of the following may indicate SIRS): Temperature < 96.8F (36C) or > 101.0F (38.3C) Heart Rate > 90 bpm Respiratory Rate > 20 breaths/min or PaCO2 < 32 mmHg White Blood Cell Count > 12,000 or < 4,000 cells/mm3 or > 10% bands MTDD
--- NOTE | 2024-11-04 10:33 | CDI ---
Date: 11/04/2024 From: Tiana Henry1 Email: [email or web address] Admit Date: 11/01/2024 06:45:00 AM Patient Name: Ashley Lang Visit Number: [id number] Discharge Date: N/A ATTENTION: The Clinical Documentation Specialists (CDI) and [facility] Coding Staff appreciate your assistance in clarifying documentation. Please respond to the clarification below the line at the bottom and electronically sign. The CDI & [facility] Coding staff will review the response and follow-up if needed. Please note: Queries are made part of the Legal Health Record. If you have any questions, please contact the author of this message via ITS. Dr. Yarelis Tse, Sepsis is documented H&P Report on 11/01/2024 - which may lack sufficient clinical evidence/support in the medical record. Additional clarification is requested. History/Risk Factors: 79-year-old female presented to [facility] ED for evaluation due to generalized weakness and frequent falls. PMH: Atrial fibrillation, chronic heart failure, obesity, hypothyroidism, hyperlipidemia Inpatient Admission Date/Time: 11/01/2024 @ 21:45 Clinical Indicators: Documentation Location: Electronic Medical Record Vital Sign Trend: Date Time Temperature HR RR BP SpO2 10/31/2024 20:30 98.6 F (Oral) 51 16 127/80 95% on Room Air 11/01/2024 21:45 92.0 F (Rectal) 56 18 158/75 95% on Room Air 11/02/2024 08:29 97.4 F (Oral) 71 14 154/57 93% on Room Air 11/03/2024 08:12 97.4 F (Oral) 66 14 187/75 94% on Room Air 11/03/2024 19:20 97.4 F (Axillary) 81 18 126/84 97% on Room Air 11/04/2024 07:57 97.0 F (Temporal) 64 14 180/75 94% on Room Air WBC Trend: (10/31/2024) 3.9 No Additional Results Noted Other Clinical Indicators: Blood Cultures (Collected on 11/01/2024): No growth after 48 hours Urine Cultures (Collected 10/31/2024): Klebsiella pneumoniae H&P Report (11/01/2024): o Acute urinary tract infection with sepsis on admission o Altered mental status secondary to metabolic encephalopathy and infection o Frequent falls at home due to diffuse weakness and dehydration/infection Treatment: Rocephin 2g IVPB Every 24 Hours Other Treatments this Admission: Tylenol 650mg Oral Every 6 Hours As Needed (Received 1 Dose on 11/01/2024) After work up and study, please clarify which diagnosis is most appropriate? [ ] Sepsis ruled out [ ] Sepsis is a valid diagnosis as evidenced by the following (please add rationale): [ ] Other, please specify [ ] Unable to determine SIRS Criteria (2 or more of the following may indicate SIRS): Temperature < 96.8F (36C) or > 101.0F (38.3C) Heart Rate > 90 bpm Respiratory Rate > 20 breaths/min or PaCO2 < 32 mmHg White Blood Cell Count > 12,000 or < 4,000 cells/mm3 or > 10% bands MTDD
--- NOTE | 2024-11-04 10:46 | CDI ---
Date: 11/04/2024 From: Tiana Henry1 Email: [email or web address] Admit Date: 11/01/2024 06:45:00 AM Patient Name: Ashley Lang Visit Number: [id number] Discharge Date: N/A ATTENTION: The Clinical Documentation Specialists (CDI) and [facility] Coding Staff appreciate your assistance in clarifying documentation. Please respond to the clarification below the line at the bottom and electronically sign. The CDI & [facility] Coding staff will review the response and follow-up if needed. Please note: Queries are made part of the Legal Health Record. If you have any questions, please contact the author of this message via ITS. Dr. Yarelis Tse, Sepsis is documented H&P Report on 11/01/2024 - which may lack sufficient clinical evidence/support in the medical record. Additional clarification is requested. History/Risk Factors: 79-year-old female presented to [facility] ED for evaluation due to generalized weakness and frequent falls. PMH: Atrial fibrillation, chronic heart failure, obesity, hypothyroidism, hyperlipidemia Inpatient Admission Date/Time: 11/01/2024 @ 21:45 Clinical Indicators: Documentation Location: Electronic Medical Record Vital Sign Trend: Date Time Temperature HR RR BP SpO2 10/31/2024 20:30 98.6 F (Oral) 51 16 127/80 95% on Room Air 11/01/2024 21:45 92.0 F (Rectal) 56 18 158/75 95% on Room Air 11/02/2024 08:29 97.4 F (Oral) 71 14 154/57 93% on Room Air 11/03/2024 08:12 97.4 F (Oral) 66 14 187/75 94% on Room Air 11/03/2024 19:20 97.4 F (Axillary) 81 18 126/84 97% on Room Air 11/04/2024 07:57 97.0 F (Temporal) 64 14 180/75 94% on Room Air WBC Trend: (10/31/2024) 3.9 No Additional Results Noted Other Clinical Indicators: Blood Cultures (Collected on 11/01/2024): No growth after 48 hours Urine Cultures (Collected 10/31/2024): Klebsiella pneumoniae H&P Report (11/01/2024): o Acute urinary tract infection with sepsis on admission o Altered mental status secondary to metabolic encephalopathy and infection o Frequent falls at home due to diffuse weakness and dehydration/infection Treatment: Rocephin 2g IVPB Every 24 Hours Other Treatments this Admission: Tylenol 650mg Oral Every 6 Hours As Needed (Received 1 Dose on 11/01/2024) After work up and study, please clarify which diagnosis is most appropriate? [ ] Sepsis ruled out [ ] Sepsis is a valid diagnosis as evidenced by the following (please add rationale): [ ] Other, please specify [ ] Unable to determine SIRS Criteria (2 or more of the following may indicate SIRS): Temperature < 96.8F (36C) or > 101.0F (38.3C) Heart Rate > 90 bpm Respiratory Rate > 20 breaths/min or PaCO2 < 32 mmHg White Blood Cell Count > 12,000 or < 4,000 cells/mm3 or > 10% bands MTDD
[2024-11-04 11:11] LABS: Glucose,Whole Blood 80 mg/dL (70-110)
--- NOTE | 2024-11-04 12:24 | CDI ---
Documentation Clarification Form Date: 11/04/2024 From: Tiana Henry1 Email: [email or web address] Admit Date: 11/01/2024 06:45:00 AM Patient Name: Ashley Lang Visit Number: [id number] Discharge Date: N/A ATTENTION: The Clinical Documentation Specialists (CDI) and [facility] Coding Staff appreciate your assistance in clarifying documentation. Please respond to the clarification below the line at the bottom and electronically sign. The CDI & [facility] Coding staff will review the response and follow-up if needed. Please note: Queries are made part of the Legal Health Record. If you have any questions, please contact the author of this message via ITS. Dr. Yarelis Tse, medical history significant for atrial fibrillation, heart failure is documented in the H&P Report on 11/01/2024. Additional information regarding the type and acuity of heart failure is requested. History/Risk Factors: 79-year-old female presented to [facility] ED for evaluation due to generalized weakness and frequent falls. PMH: Atrial fibrillation, hypertension, obesity, hypothyroidism, hyperlipidemia Clinical Indicators: H&P Report (11/01/2024): Chronic diastolic dysfunction with no acute exacerbation Historical Documentation/Previous Visits: o Cardiology Consult Note (Previous Visit 12/24/2023): No coronary artery disease or congestive heart failure o Echocardiogram (Previous Visit 12/21/2023): Left ventricular ejection fraction is estimated at 50-55%. Severely increased left ventricular diastolic volume. Severely increased left ventricular systolic volume. Mildly decreased left ventricular ejection fraction. Global hypokinesis. Normal right ventricular size with normal function. Mild mitral regurgitation. Trace tricuspid regurgitation Treatment: Pertinent Labs Monitored with Trend Admitted to Cardiac Step Down Unit In your professional opinion, can you please clarify the acuity and type of heart failure if known? [x ] Heart failure has been ruled out [ ] Chronic Diastolic Heart Failure (preserved EF) [ ] Other, please specify [ ] Unable to determine MTDD
--- NOTE | 2024-11-04 12:27 | CDI ---
Documentation Clarification Form Date: 11/04/2024 From: Tiana Henry1 Email: [email or web address] Admit Date: 11/01/2024 06:45:00 AM Patient Name: Ashley Lang Visit Number: [id number] Discharge Date: N/A ATTENTION: The Clinical Documentation Specialists (CDI) and [facility] Coding Staff appreciate your assistance in clarifying documentation. Please respond to the clarification below the line at the bottom and electronically sign. The CDI & [facility] Coding staff will review the response and follow-up if needed. Please note: Queries are made part of the Legal Health Record. If you have any questions, please contact the author of this message via ITS. Dr. Yarelis Tse, WINDY is documented in the H&P Report on 11/01/2024 - which may lack sufficient clinical evidence/support in the medical record. Additional clarification is requested. History/Risk Factors: 79-year-old female presented to [facility] ED for evaluation due to generalized weakness and frequent falls. PMH: Atrial fibrillation, chronic heart failure, obesity, hypothyroidism, hyperlipidemia Clinical Indicators: Documentation Location: Electronic Medical Record Lab Trends: 10/31/2024 11/01/2024 11/02/2024 11/03/2024 Creatinine 1.00 mg/dL 0.94 mg/dL 1.02 mg/dL 1.00 mg/dL BUN 45 mg/dL 34 mg/dL 29 mg/dL 23 mg/dL GFR 54 58 52 54 Treatment: No Treatment Specific to Acute Kidney Injury Identified After work up and study, please which diagnosis is most appropriate? [ ] Acute kidney injury has been ruled out [ x] Acute kidney injury is a valid diagnosis as evidenced by the following (please provide rationale): [ ] Unable to determine [ ] Other, please specify Reference: KDIGO WINDY Criteria An increase in serum creatinine by greater than or equal to 0.3 mg/dL within 48 hours; or An increase in serum creatinine by greater than or equal to 1.5 times baseline, which is known or presumed to have occurred within the prior 7 days; or A urine volume less than 0.5 ml/kg/h for 6 hours. When the baseline is unknown the lowest creatinine during admission assumed to be baseline MTDD
--- NOTE | 2024-11-04 12:32 | CDI ---
Documentation Clarification Form Date: 11/04/2024 From: Tiana Henry1 Email: [email or web address] Admit Date: 11/01/2024 06:45:00 AM Patient Name: Ashley Lang Visit Number: [id number] Discharge Date: N/A ATTENTION: The Clinical Documentation Specialists (CDI) and [facility] Coding Staff appreciate your assistance in clarifying documentation. Please respond to the clarification below the line at the bottom and electronically sign. The CDI & [facility] Coding staff will review the response and follow-up if needed. Please note: Queries are made part of the Legal Health Record. If you have any questions, please contact the author of this message via ITS. Dr. Yarelis Tse, WNIDY is documented in the H&P Report on 11/01/2024 - which may lack sufficient clinical evidence/support in the medical record. Additional clarification is requested. History/Risk Factors: 79-year-old female presented to [facility] ED for evaluation due to generalized weakness and frequent falls. PMH: Atrial fibrillation, chronic heart failure, obesity, hypothyroidism, hyperlipidemia Clinical Indicators: Documentation Location: Electronic Medical Record Lab Trends: 10/31/2024 11/01/2024 11/02/2024 11/03/2024 Creatinine 1.00 mg/dL 0.94 mg/dL 1.02 mg/dL 1.00 mg/dL BUN 45 mg/dL 34 mg/dL 29 mg/dL 23 mg/dL GFR 54 58 52 54 Treatment: No Treatment Specific to Acute Kidney Injury Identified After work up and study, please which diagnosis is most appropriate? [ ] Acute kidney injury has been ruled out [ x ] Acute kidney injury is a valid diagnosis as evidenced by the following (please provide rationale): [ ] Unable to determine [ ] Other, please specify Reference: KDIGO WINDY Criteria An increase in serum creatinine by greater than or equal to 0.3 mg/dL within 48 hours; or An increase in serum creatinine by greater than or equal to 1.5 times baseline, which is known or presumed to have occurred within the prior 7 days; or A urine volume less than 0.5 ml/kg/h for 6 hours. When the baseline is unknown the lowest creatinine during admission assumed to be baseline Query answered in Progress Note on 11/[address] Tse: "Acute urinary tract infection with concerns of sepsis, present on admission, sepsis ruled out" <Electronically signed by Negrita Hollis> 11/06/24 0131 <Electronically signed by Yarelis Tse MD> 11/06/24 1037 MTDD
[2024-11-04] MEDS: amLODIPine 10 MG TAB PO SCH (14:32)
[2024-11-04] MEDS: FUROSEMIDE 40 MG TAB PO SCH (14:33)
--- NOTE | 2024-11-04 14:36 | CT ---
EXAMINATION TYPE: CT brain wo con CT DLP: 1095.7 mGycm, Automated exposure control for dose reduction was used. DATE OF EXAM: 11/04/2024 2:27 PM COMPARISON: CT brain C-spine 02/04/2024, CT brain 12/24/2023, 12/20/2023, 12/17/2023, 07/11/2023, , MRI brain 07/14/2023 CLINICAL INDICATION:Female, 79 years old with history of AMS, AMS TECHNIQUE: Brain: Multiple axial CT images of the brain were obtained without IV contrast. . Coronal and sagitta l reformats reviewed. FINDINGS: Brain: Extra-axial spaces: No abnormal extra-axial fluid collections. Ventricular system: Within normal limits Cerebral parenchyma: No acute intraparenchymal hemorrhage or mass effect. The richard-white junction is well differentiated. Scattered hypoattenuating areas are seen within the periventricular and subcort ical white matter. Cerebellum: Unremarkable. Mass effect: No evidence of midline shift. Intracranial vasculature: unremarkable Soft tissues: Normal. Calvarium/osseous structures: No depressed skull fracture. Benign hyperostosis frontalis noted. Paranasal sinuses and mastoid air cells: Clear, nasal septal deviation to the left. Visualized orbits: Postsurgical changes of both globes. IMPRESSION: 1. No acute intracranial process. 2. Nonspecific white matter changes, likely secondary to chronic small vessel ischemic disease. [facility], , 11/04/2024 2:33 PM
--- NOTE | 2024-11-04 14:40 | XR ---
EXAMINATION TYPE: XR chest 2V DATE OF EXAM: 11/04/2024 2:08 PM COMPARISON: None. CLINICAL INDICATION: Female, 79 years old with history of hypoxia, TECHNIQUE: XR chest 2V view(s) obtained. FINDINGS: The heart size is normal. The pulmonary vasculature is normal. Small posterior pleural effusion is present.. No suspicious infiltrates identified. IMPRESSION: 1. Small posterior pleural effusion, present previously [facility], , 11/04/2024 2:37 PM
[2024-11-04] MEDS ORDERED: FUROSEMIDE 10 MG/ML 4 ML VIAL IV STA (14:50)
--- NOTE | 2024-11-04 14:56 | P.PN ---
Subjective Progress Note Date: 11/04/24 This is a pleasant 79-year-old female medical history significant for atrial fibrillation, heart failure, retinal detachment with repair twice. Patient presents to the hospital with complaints of a week long history of generalized weakness frequent falls at home. Patient's daughter has also had some con fusion. Some of the medical history is obtained from patient's daughter at the bedside. Patient does state that she is having some urinary burning and mild suprapubic abdominal discomfort. She is not having any nausea vomiting or diarrhea. She denies any chest pain or shortness of breath. Patient does state that she has had multiple falls over the last few days is concerned that she may have a urinary tract infection as she has behaved similarly in the past when she had a urinary tract infection. Her daughter is at the bedside and helps provide the medical history. Patient does live alone. Chest x-ray reveals cardiomegaly with no significant acute cardiopulmonary process. Initial blood work reveals hemoglobin of 9, sodium of 129, BUN of 45 creatinine of 1.00, AST of 40 ALT of 42. Troponin level was negative. Urinalysis is significantly abnormal cloudy urine with trace protein trace blood positive for nitrates large leukocyte Estrace 35 RBCs greater than 182 WBCs with many bacteria. Patient was given a gram of Rocephin while in the ER. Patient was admitted to the hospital under internal medicine. Patient also received a 1 L fluid bolus. She has remained afebrile. Upon assessment patient is noted to have some periorbital bruising on the right per daughter patient underwent surgery to repair a detached retina 10 days ago. Does have chronic lymphedema but concern for mild underlying celllulitis of the lower extremities. 11/02/2024 Patient is evaluated today sitting up in the chair with family at the bedside. Reports improvement in her urinary symptoms. Urine culture pending. Continues on IV ceftriaxone. Speech therapy had evaluated the patient recommending regular diet with thin liquids however NO straws and patient to be sitting upright with 1:1 assistance. Sodium now 127, BUN 29, creatinine 1.02. LFTs are near normal. 11/03/2024 Patient evaluated today sitting up in the chair. Urine culture comes back showing klebsiella pneumoniae and continues on IV ceftriaxone. Patient refusing care today. Hydralazine was ordered and patient had refused. Plan is for d ischarge to [facility] tomorrow after 3 night hospital stay. 11/04/2024 Patient was seen in follow-up resting in bed. Patient refusing care including oral medications and her IV antibiotics. Patient did make a comment to her family and her friend that she just wanted Nirav to come take her. Patient has not been participating in her care she has a very flat affect and does appear clinically to be depressed. Patient will be started on a low-dose escitalopram this was discussed with her daughter who is agreeing with this. Additionally patient has some congestive lung sounds chest x-ray reveals a small pleural effusion we will give a one-time dose of IV Lasix. Brain CT was completed as patient does appear to be altered this was negative for any acute findings. Family to come in today to speak with the patient and encouraged her to participate in her care and take her oral medications. Did offer hospice consult and discussed this with daughter. REVIEW OF SYSTEMS: CONSTITUTIONAL: No fever, no malaise, no fatigue. HEENT: No recent visual problems or hearing problems. Denied any sore throat. CARDIOVASCULAR: No chest pain, orthopnea, PND, no palpitations, no syncope. PULMONARY: No shortness of breath, no cough, no hemoptysis. GASTROINTESTINAL: No diarrhea, no nausea, no vomiting, no abdominal pain. NEUROLOGICAL: No headaches, no weakness, no numbness. PHYSICAL EXAMINATION: GENERAL: The patient is alert and oriented x3, not in any acute distress. Well developed, well nourished. HEENT: Pupils are round and equally reacting to light. EOMI. No scleral icterus. No conjunctival pallor. Normocephalic, atraumatic. No pharyngeal erythema. No thyromegaly. CARDIOVASCULAR: S1 and S2 present. No murmurs, rubs, or gallops. PULMONARY: Chest is clear to auscultation, no wheezing or crackles. ABDOMEN: Soft, nontender, nondistended, normoactive bowel sounds. No palpable organomegaly. MUSCULOSKELETAL: No joint swelling or deformity. EXTREMITIES: No cyanosis, clubbing, or pedal edema. NEUROLOGICAL: Gross neurological examination did not reveal any focal deficits. Generalized weakness SKIN: No rashes. Mild erythema of the lower extremity Assessment and plan Acute urinary tract infection with sepsis-on admission Altered mental status secondary to metabolic encephalopathy and infection Frequent falls at home due to diffuse weakness from dehydration/infection Acute kidney injury mild, prerenal secondary to dehydration Hypovolemic hyponatremia Sinus bradycardia with first degree AV block nonsymptomatic patient's beta- batsheva will be held Paroxysmal atrial fibrillation anticoagulant Eliquis on outpatient basis History of glaucoma History of retinal detachment x 2 with most recent surgical repair 10 days ago Chronic bilateral Lower extremity lymphadenopathy Chronic diastolic dysfunction with no acute exacerbation Mild lower extremity cellulitis Obesity Hypothyroidism Hyperlipidemia GI prophylaxis DVT prophylaxis Full Code Plan Continue IV ceftriaxone 2gm q24 hour Resume appropriate home medications Betablocker has been placed on hold due to the bradycardia Resume prenisolone eye gtts in the right eye at as part of patients post op instructions form her recent eye surgery Yordan wrap bilateral lower extremities PT/OT consultation IV lasix x 1 dose with chest xray revealing small pleural effusion Repeat BMP in the AM PT/OT consultation recommending subacute rehab and plan is for discharge [facility] tomorrow if patient is agreeable and willing to participate in care. Family coming in today to speak with the patient. The impression and plan of care has been dictated by Haylie Bernabe, Nurse Practitioner as directed. Dr. Carmencita MD I have performed a history and physical examination and medical decision making of this patient, discussed the same with the dictator, and agree with the dictators assessment and plan as written, documented as a scribe. Based on total visit time, I have performed more than 50% of this visit. Objective - Vital Signs Vital signs: Vital Signs Temp 97.4 F L 11/04/24 11:31 Pulse 74 11/04/24 11:31 Resp 14 11/04/24 11:31 BP 174/74 11/04/24 11:31 Pulse Ox 91 L 11/04/24 11:31 FiO2 Intake & Output 11/03/24 11/04/24 11/04/24 18:59 06:59 18:59 Intake Total 10 Output Total 250 800 250 Balance -250 -790 -250 Intake: IV 10 Invasive Line 1 10 Output: Urine 250 800 250 Other: Voiding Method External Catheter External Catheter # Bowel Movements 0 1 - Labs CBC & Chem 7: 10/31/24 21:00 11/03/24 05:24 Labs: Microbiology - Last 24 Hours (Table) 11/01/24 00:52 Blood Culture - Preliminary Blood 10/31/24 23:15 Urine Culture - Final Urine,Clean Catch Klebsiella pneumoniae Assessment and Plan Time with Patient: Less than 30
[2024-11-04 15:21] LABS: Anisocytosis Slight; Basophils % (A) 0 %; Eosinophils % (A) 0 %; HCT 33.1 % (34.0-46.0); HGB 10.1 gm/dL (11.4-16.0); Hypochromasia Slight; Lymphocytes # (A) 0.5 k/uL (1.0-4.8); Lymphocytes % (A) 8 %; MCH 30.1 pg (25.0-35.0); MCHC 30.6 g/dL (31.0-37.0); MCV 98.2 fL (80.0-100.0); Macrocytosis Slight; Mean Platelet Volume 8.9; Monocytes # (A) 0.3 k/uL (0-1.0); Monocytes % (A) 5 %; Neutrophils # (A) 5.2 k/uL (1.3-7.7); Neutrophils % (A) 86 %; Platelet Count 119 k/uL (150-450); RBC 3.37 m/uL (3.80-5.40); RDW 18.9 % (11.5-15.5); WBC 6.1 k/uL (3.8-10.6)
[2024-11-04 15:34] LABS: African American GFR (CKD) 70 (>60 ml/min/1.73 sqM); Anion Gap 3 mmol/L; Blood Urea Nitrogen 20 mg/dL (7-17); Calcium 9.2 mg/dL (8.4-10.2); Carbon Dioxide 30 mmol/L (22-30); Chloride 106 mmol/L (98-107); Glucose 83 mg/dL (74-99); Non-African American GFR(CKD) 61 (>60 ml/min/1.73 sqM); Potassium 4.9 mmol/L (3.5-5.1); Sodium 139 mmol/L (137-145)
[2024-11-04] MEDS: METOPROLOL SUCCINATE (ER) 25 MG TAB.ER.24H PO SCH (15:41)
[2024-11-04] MEDS: ESCITALOPRAM 10 MG TAB PO SCH (15:41)
[2024-11-04] MEDS: FUROSEMIDE 10 MG/ML 4 ML VIAL IV STA (15:42)
[2024-11-04 15:43] LABS: NT-Pro-B-Type Natriuretic Pept 717 pg/mL
[2024-11-04 16:07] LABS: Influenza A Not Detected (Not Detectd); Influenza B Not Detected (Not Detectd); RSV Not Detected (Not Detectd)
[2024-11-04 16:25] LABS: Glucose,Whole Blood 91 mg/dL (70-110)
[2024-11-04 20:10] LABS: Glucose,Whole Blood 138 mg/dL (70-110)
[2024-11-05 06:26] LABS: Glucose,Whole Blood 83 mg/dL (70-110)
[2024-11-05 07:36] LABS: African American GFR (CKD) 58 (>60 ml/min/1.73 sqM); Anion Gap 6 mmol/L; Blood Urea Nitrogen 24 mg/dL (7-17); Calcium 9.2 mg/dL (8.4-10.2); Carbon Dioxide 31 mmol/L (22-30); Chloride 103 mmol/L (98-107); Glucose 77 mg/dL (74-99); Non-African American GFR(CKD) 50 (>60 ml/min/1.73 sqM); Potassium 4.6 mmol/L (3.5-5.1); Sodium 140 mmol/L (137-145)
[2024-11-05 12:05] LABS: Glucose,Whole Blood 97 mg/dL (70-110)
[2024-11-05 16:57] LABS: Glucose,Whole Blood 99 mg/dL (70-110)
--- NOTE | 2024-11-06 01:31 | P.PN ---
Subjective Progress Note Date: 11/05/24 This is a pleasant 79-year-old female medical history significant for atrial fibrillation, heart failure, retinal detachment with repair twice. Patient presents to the hospital with complaints of a week long history of generalized weakness frequent falls at home. Patient's daughter has also had some c onfusion. Some of the medical history is obtained from patient's daughter at the bedside. Patient does state that she is having some urinary burning and mild suprapubic abdominal discomfort. She is not having any nausea vomiting or diarrhea. She denies any chest pain or shortness of breath. Patient does state that she has had multiple falls over the last few days is concerned that she may have a urinary tract infection as she has behaved similarly in the past when she had a urinary tract infection. Her daughter is at the bedside and helps provide the medical history. Patient does live alone. Chest x-ray reveals cardiomegaly with no significant acute cardiopulmonary process. Initial blood work reveals hemoglobin of 9, sodium of 129, BUN of 45 creatinine of 1.00, AST of 40 ALT of 42. Troponin level was negative. Urinalysis is significantly abnormal cloudy urine with trace protein trace blood positive for nitrates large leukocyte Estrace 35 RBCs greater than 182 WBCs with many bacteria. Patient was given a gram of Rocephin while in the ER. Patient was admitted to the hospital under internal medicine. Patient also received a 1 L fluid bolus. She has remained afebrile. Upon assessment patient is noted to have some periorbital bruising on the right per daughter patient underwent surgery to repair a detached retina 10 days ago. Does have chronic lymphedema but concern for mild underlying celllulitis of the lower extremities. 11/02/2024 Patient is evaluated today sitting up in the chair with family at the bedside. Reports improvement in her urinary symptoms. Urine culture pending. Continues on IV ceftriaxone. Speech therapy had evaluated the patient recommending regular diet with thin liquids however NO straws and patient to be sitting upright with 1:1 assistance. Sodium now 127, BUN 29, creatinine 1.02. LFTs are near normal. 11/03/2024 Patient evaluated today sitting up in the chair. Urine culture comes back showing klebsiella pneumoniae and continues on IV ceftriaxone. Patient refusing care today. Hydralazine was ordered and patient had refused. Plan is for discharge to [facility] tomorrow after 3 night hospital stay. 11/04/2024 Patient was seen in follow-up resting in bed. Patient refusing care including oral medications and her IV antibiotics. Patient did make a comment to her family and her friend that she just wanted Nirav to come take her. Patient has not been participating in her care she has a very flat affect and does appear clinically to be depressed. Patient will be started on a low-dose escitalopram this was discussed with her daughter who is agreeing with this. Additionally patient has some congestive lung sounds chest x-ray reveals a small pleural effusion we will give a one-time dose of IV Lasix. Brain CT was completed as patient does appear to be altered this was negative for any acute findings. Family to come in today to speak with the patient and encouraged her to participate in her care and take her oral medications. Did offer hospice consult and discussed this with daughter. 11/05/2024 Patient is seen in follow-up currently sitting up in bed and has been somewhat more compliant with care today. Patient reports she wants to return home and feels she will be able to work with physical therapy and go home on discharge. Patient is maintained on her home dose of Lasix and other appropriate home medications resumed. Awaiting PT/OT therapy evaluation and will discuss with case management on Thursday regarding discharge planning. Follow-up on repeat labs and monitor kidney functions, replace electrolytes per protocol REVIEW OF SYSTEMS: CONSTITUTIONAL: No fever, no malaise, no fatigue. HEENT: No recent visual problems or hearing problems. Denied any sore throat. CARDIOVASCULAR: No chest pain, orthopnea, PND, no palpitations, no syncope. PULMONARY: No shortness of breath, no cough, no hemoptysis. GASTROINTESTINAL: No diarrhea, no nausea, no vomiting, no abdominal pain. NEUROLOGICAL: No headaches, no weakness, no numbness. PHYSICAL EXAMINATION: GENERAL: The patient is alert and oriented x3, not in any acute distress. Well developed, well nourished. Elderly appearing, obese HEENT: Pupils are round and equally reacting to light. EOMI. No scleral icterus. No conjunctival pallor. Normocephalic, atraumatic. No pharyngeal erythema. No thyromegaly. CARDIOVASCULAR: S1 and S2 present. No murmurs, rubs, or gallops. PULMONARY: Diminished breath sounds bilaterally otherwise chest is clear to a uscultation, no wheezing or crackles. ABDOMEN: Soft, obese, nontender, nondistended, normoactive bowel sounds. No palpable organomegaly. MUSCULOSKELETAL: No joint swelling or deformity. EXTREMITIES: No cyanosis, clubbing, or pedal edema. NEUROLOGICAL: Gross neurological examination did not reveal any focal deficits. Generalized weakness SKIN: No rashes. Mild erythema of the lower extremity Assessment: Acute urinary tract infection with concerns of sepsis, present on admission, sepsis ruled out Altered mental status secondary to metabolic encephalopathy and infection Frequent falls at home due to diffuse weakness from dehydration/infection Acute kidney injury mild, prerenal secondary to dehydration Hypovolemic hyponatremia Sinus bradycardia with first degree AV block nonsymptomatic patient's beta- batsheva will be held Paroxysmal atrial fibrillation anticoagulant Eliquis on outpatient basis History of glaucoma History of retinal detachment x 2 with most recent surgical repair 10 days ago Chronic bilateral Lower extremity lymphadenopathy Chronic diastolic dysfunction with no acute exacerbation Mild lower extremity cellulitis Obesity Hypothyroidism Hyperlipidemia GI prophylaxis DVT prophylaxis Full Code Plan: Continue IV ceftriaxone 2gm q24 hour while awaiting cultures to finalize. Resume appropriate home medications, home dose of Lasix has been resumed and will follow-up on repeat labs to monitor kidney functions and electrolytes Betablocker has been placed on hold due to the bradycardia Resume prenisolone eye gtts in the right eye at as part of patients post op instructions form her recent eye surgery Yordan wrap bilateral lower extremities PT/OT evaluated the patient recommending rehab and plan will be for discharge to [facility]. Apparently per case management, discharge planning arrangements were not placed and [facility] not aware of at discharge. Will rediscuss with case management on Thursday for possible discharge planning The impression and plan of care has been dictated by Negrita Hollis, nurse Practitioner as directed. Dr. Carmencita MD I have performed a history and physical examination and medical decision making of this patient, discussed the same with the dictator, and agree with the dictators assessment and plan as written, documented as a scribe. Based on total visit time, I have performed more than 50% of this visit. Objective - Vital Signs Vital signs: Vital Signs Temp 97.5 F L 11/05/24 07:00 Pulse 66 11/05/24 07:00 Resp 17 11/05/24 07:00 BP 144/57 11/05/24 07:00 Pulse Ox 91 L 11/05/24 07:00 FiO2 Intake & Output 11/04/24 11/05/24 11/05/24 18:59 06:59 18:59 Intake Total 0 Output Total 1250 450 Balance -1250 -450 Weight 100.5 kg Intake: Oral 0 Output: Urine 1250 450 Other: Voiding Method External Catheter External Catheter # Voids 2 # Bowel Movements 2 1 - Labs CBC & Chem 7: 11/04/24 14:55 11/05/24 05:43 Labs: Abnormal Lab Results - Last 24 Hours (Table) 11/04/24 11/04/24 11/04/24 Range/Units 14:55 14:55 20:09 RBC 3.37 L (3.80-5.40) m/uL Hgb 10.1 L (11.4-16.0) gm/dL Hct 33.1 L (34.0-46.0) % MCHC 30.6 L (31.0-37.0) g/dL RDW 18.9 H (11.5-15.5) % Plt Count 119 L (150-450) k/uL Lymphocytes # 0.5 L (1.0-4.8) k/uL Carbon Dioxide (22-30) mmol/L BUN 20 H (7-17) mg/dL Creatinine (0.52-1.04) mg/dL POC Glucose (mg/dL) 138 H (70-110) mg/dL 11/05/24 Range/Units 05:43 RBC (3.80-5.40) m/uL Hgb (11.4-16.0) gm/dL Hct (34.0-46.0) % MCHC (31.0-37.0) g/dL RDW (11.5-15.5) % Plt Count (150-450) k/uL Lymphocytes # (1.0-4.8) k/uL Carbon Dioxide 31 H (22-30) mmol/L BUN 24 H (7-17) mg/dL Creatinine 1.06 H (0.52-1.04) mg/dL POC Glucose (mg/dL) (70-110) mg/dL Microbiology - Last 24 Hours (Table) 11/01/24 00:52 Blood Culture - Preliminary Blood
[2024-11-06 09:47] LABS: Basophils # (A) 0 X 10*3/uL (0.00-0.10); Basophils % (A) 0 %; Eosinophils # (A) 0.04 X 10*3/uL (0.04-0.35); Eosinophils % (A) 0.9 %; HCT 30.7 % (37.2-46.3); HGB 9.9 g/dL (12.0-15.0); Lymphocytes # (A) 0.36 X 10*3/uL (0.90-5.00); MCHC 32.2 g/dL (32.0-37.0); MCV 96.2 FL (80.0-97.0); Mean Platelet Volume 11.3 FL (9.5-12.2); Monocytes # (A) 0.32 X 10*3/uL (0.20-1.00); Monocytes % (A) 7.1 %; NRBC Per 100 WBC 0 X 10*3/uL (0.00-0.01); Neutrophils # (A) 3.77 X 10*3/uL (1.80-7.70); Neutrophils % (A) 83.8 %; Platelet Count 119 X 10*3/uL (140-440); RBC 3.19 X 10*6/uL (4.10-5.20); RDW 19.5 % (11.5-14.5)
[2024-11-06 09:58] LABS: BUN/Creat Ratio 24.67 Ratio (12.00-20.00); Blood Urea Nitrogen 22.2 mg/dL (9.0-27.0); Glucose 87 mg/dL (70-110)
[2024-11-06 09:59] LABS: Carbon Dioxide 28.6 mmol/L (21.6-31.8); Chloride 105 mmol/L (96-109); Magnesium 1.8 mg/dL (1.5-2.4); Potassium 4.4 mmol/L (3.5-5.5); Sodium 144 mmol/L (135-145)
[2024-11-06] MEDS: QUEtiapine 25 MG TAB PO STA (13:06)
[2024-11-06] MEDS: QUEtiapine 25 MG TAB PO SCH (20:11)
--- NOTE | 2024-11-07 04:07 | P.PN ---
Subjective Progress Note Date: 11/06/24 This is a pleasant 79-year-old female medical history significant for atrial fibrillation, heart failure, retinal detachment with repair twice. Patient presents to the hospital with complaints of a week long history of generalized weakness frequent falls at home. Patient's daughter has also had some c onfusion. Some of the medical history is obtained from patient's daughter at the bedside. Patient does state that she is having some urinary burning and mild suprapubic abdominal discomfort. She is not having any nausea vomiting or diarrhea. She denies any chest pain or shortness of breath. Patient does state that she has had multiple falls over the last few days is concerned that she may have a urinary tract infection as she has behaved similarly in the past when she had a urinary tract infection. Her daughter is at the bedside and helps provide the medical history. Patient does live alone. Chest x-ray reveals cardiomegaly with no significant acute cardiopulmonary process. Initial blood work reveals hemoglobin of 9, sodium of 129, BUN of 45 creatinine of 1.00, AST of 40 ALT of 42. Troponin level was negative. Urinalysis is significantly abnormal cloudy urine with trace protein trace blood positive for nitrates large leukocyte Estrace 35 RBCs greater than 182 WBCs with many bacteria. Patient was given a gram of Rocephin while in the ER. Patient was admitted to the hospital under internal medicine. Patient also received a 1 L fluid bolus. She has remained afebrile. Upon assessment patient is noted to have some periorbital bruising on the right per daughter patient underwent surgery to repair a detached retina 10 days ago. Does have chronic lymphedema but concern for mild underlying celllulitis of the lower extremities. 11/02/2024 Patient is evaluated today sitting up in the chair with family at the bedside. Reports improvement in her urinary symptoms. Urine culture pending. Continues on IV ceftriaxone. Speech therapy had evaluated the patient recommending regular diet with thin liquids however NO straws and patient to be sitting upright with 1:1 assistance. Sodium now 127, BUN 29, creatinine 1.02. LFTs are near normal. 11/03/2024 Patient evaluated today sitting up in the chair. Urine culture comes back showing klebsiella pneumoniae and continues on IV ceftriaxone. Patient refusing care today. Hydralazine was ordered and patient had refused. Plan is for discharge to [facility] tomorrow after 3 night hospital stay. 11/04/2024 Patient was seen in follow-up resting in bed. Patient refusing care including oral medications and her IV antibiotics. Patient did make a comment to her family and her friend that she just wanted Nirav to come take her. Patient has not been participating in her care she has a very flat affect and does appear clinically to be depressed. Patient will be started on a low-dose escitalopram this was discussed with her daughter who is agreeing with this. Additionally patient has some congestive lung sounds chest x-ray reveals a small pleural effusion we will give a one-time dose of IV Lasix. Brain CT was completed as patient does appear to be altered this was negative for any acute findings. Family to come in today to speak with the patient and encouraged her to participate in her care and take her oral medications. Did offer hospice consult and discussed this with daughter. 11/05/2024 Patient is seen in follow-up currently sitting up in bed and has been somewhat more compliant with care today. Patient reports she wants to return home and feels she will be able to work with physical therapy and go home on discharge. Patient is maintained on her home dose of Lasix and other appropriate home medications resumed. Awaiting PT/OT therapy evaluation and will discuss with case management on Thursday regarding discharge planning. Follow-up on repeat labs and monitor kidney functions, replace electrolytes per protocol 11/06/2024 Patient is seen in follow-up today lethargic although arousable. Per nursing staff patient has been continuing to be confused and pulling at IV and lines and has removed her own IV. Patient is continued on ceftriaxone for now and will transition to oral. Recommend Seroquel at night as patient has also reportedly not slept in days. Will have PT/OT therapy reevaluate on Thursday and discuss with case management regarding discharge planning. Plan was for [facility] although need to confirm if this is accurate. REVIEW OF SYSTEMS: CONSTITUTIONAL: No fever, no malaise, reports of fatigue. HEENT: No recent visual problems or hearing problems. Denied any sore throat. CARDIOVASCULAR: No chest pain, orthopnea, PND, no palpitations, no syncope. PULMONARY: No shortness of breath, no cough, no hemoptysis. GASTROINTESTINAL: No diarrhea, no nausea, no vomiting, no abdominal pain. NEUROLOGICAL: No headaches, reports of feeling significantly weak, no numbness. PHYSICAL EXAMINATION: GENERAL: The patient is alert and oriented x1-2, confused at times. Well developed, well nourished. Elderly appearing, obese HEENT: Pupils are round and equally reacting to light. EOMI. No scleral icterus. No conjunctival pallor. Normocephalic, atraumatic. No pharyngeal erythema. No thyromegaly. CARDIOVASCULAR: S1 and S2 present. No murmurs, rubs, or gallops. PULMONARY: Diminished breath sounds bilaterally otherwise chest is clear to auscultation, no wheezing or crackles. ABDOMEN: Soft, obese, nontender, nondistended, normoactive bowel sounds. No palpable organomegaly. MUSCULOSKELETAL: No joint swelling or deformity. EXTREMITIES: No cyanosis, clubbing, or pedal edema. NEUROLOGICAL: Gross neurological examination did not reveal any focal deficits. Generalized weakness SKIN: No rashes. Mild erythema of the lower extremity Assessment: Acute urinary tract infection with concerns of sepsis, present on admission, sepsis ruled out Altered mental status secondary to metabolic encephalopathy and infection Frequent falls at home due to diffuse weakness from dehydration/infection Acute kidney injury mild, prerenal secondary to dehydration Hypovolemic hyponatremia Sinus bradycardia with first degree AV block nonsymptomatic patient's beta- batsheva will be held Paroxysmal atrial fibrillation anticoagulant Eliquis on outpatient basis History of glaucoma History of retinal detachment x 2 with most recent surgical repair 10 days ago Chronic bilateral Lower extremity lymphadenopathy Chronic diastolic dysfunction with no acute exacerbation Mild lower extremity cellulitis Obesity with a BMI of 38.9 Hypothyroidism Hyperlipidemia GI prophylaxis DVT prophylaxis Full Code Plan: Patient was continued on IV ceftriaxone 2gm q24 hour and cultures have finalized showing Klebsiella with sensitivities. Patient removed her own IV and will add oral antibiotics for short course to complete Resume appropriate home medications, home dose of Lasix has been resumed and will follow-up on repeat labs to monitor kidney functions and electrolytes Betablocker has been placed on hold due to the bradycardia Resume prenisolone eye gtts in the right eye at as part of patients post op instructions form her recent eye surgery Yordan wrap bilateral lower extremities PT/OT evaluated the patient recommending rehab and plan will be for discharge to [facility]. Apparently per case management, discharge planning arrangements were not placed and [facility] not aware of at discharge. Will rediscuss with case management on Thursday for possible discharge planning. Recommend repeat evaluation with physical therapy on Thursday Patient having some increased confusion and pulling at lines and IVs, recommend Seroquel at night. Nursing staff reports patient has not slept very much at all The impression and plan of care has been dictated by Negrita Hollis, nurse Practitioner as directed. Dr. Carmencita MD I have performed a history and physical examination and medical decision making of this patient, discussed the same with the dictator, and agree with the dictators assessment and plan as written, documented as a scribe. Based on total visit time, I have performed more than 50% of this visit. Objective - Vital Signs Vital signs: Vital Signs Temp 96.9 F L 11/06/24 07:10 Pulse 55 L 11/06/24 07:10 Resp 18 11/06/24 07:10 BP 155/65 11/06/24 07:10 Pulse Ox 93 L 11/06/24 07:10 FiO2 Intake & Output 11/05/24 11/06/24 11/06/24 18:59 06:59 18:59 Output Total 400 250 Balance -400 -250 Weight 99.5 kg Output: Urine 400 250 Other: Voiding Method External Catheter # Voids 2 1 # Bowel Movements 1 - Labs CBC & Chem 7: 11/06/24 05:18 11/06/24 05:18
[2024-11-07 08:23] VITALS: RESP 17
[2024-11-07] MEDS: CEFDINIR 300 MG CAP PO SCH (10:16)
[2024-11-07] MEDS ORDERED: Magnesium Replacement Protocol 1 EACH MISC MISCELLANE PRN (10:43)
[2024-11-07] MEDS: MAGNESIUM SULFATE-D5W PMX 1 GM in DEXTROSE/WATER 1 100ML.BAG IVPB ONE (12:32)
--- NOTE | 2024-11-07 14:49 | P.DS ---
Providers Date of admission: 11/01/24 06:45 Attending physician: Kelvin Green Primary care physician: Maye Scruggs [facility] Course: Final Diagnosis Acute urinary tract infection with concerns of sepsis, present on admission, sepsis ruled out Altered mental status secondary to metabolic encephalopathy and infection Frequent falls at home due to diffuse weakness from dehydration/infection Acute kidney injury mild, prerenal secondary to dehydration Hypovolemic hyponatremia Sinus bradycardia with first degree AV block nonsymptomatic patient's beta- batsheva will be held Paroxysmal atrial fibrillation anticoagulant Eliquis on outpatient basis History of glaucoma History of retinal detachment x 2 with most recent surgical repair 10 days ago Chronic bilateral Lower extremity lymphadenopathy Chronic diastolic dysfunction with no acute exacerbation Mild lower extremity cellulitis Obesity with a BMI of 38.9 Hypothyroidism Hyperlipidemia Discharge Disposition Patient is stable for discharge to [facility]. Overall guarded prognosis did develop some hospital psychosis/delirium and responded well to seroquel. Antibiotics will be continue for 2 more days on discharge. Recommend to repeat CBC and BMP in 2 to 3 days. Hospital Course This is a pleasant 79-year-old female medical history significant for atrial fibrillation, heart failure, retinal detachment with repair twice. Patient presents to the hospital with complaints of a week long history of generalized weakness frequent falls at home. Patient's daughter has also had some confusion. Some of the medical history is obtained from patient's daughter at the bedside. Patient does state that she is having some urinary burning and mild suprapubic abdominal discomfort. She is not having any nausea vomiting or diarrhea. She denies any chest pain or shortness of breath. Patient does state that she has had multiple falls over the last few days is concerned that she may have a urinary tract infection as she has behaved similarly in the past when she had a urinary tract infection. Her daughter is at the bedside and helps provide the medical history. Patient does live alone. Chest x-ray reveals cardiomegaly with no significant acute cardiopulmonary process. Initial blood work reveals hemoglobin of 9, sodium of 129, BUN of 45 creatinine of 1.00, AST of 40 ALT of 42. Troponin level was negative. Urinalysis is significantly abnormal cloudy urine with trace protein trace blood positive for nitrates large leukocyte Estrace 35 RBCs greater than 182 WBCs with many bacteria. Patient was given a gram of Rocephin while in the ER. Patient was admitted to the hospital under internal medicine. Patient also received a 1 L fluid bolus. She has remained afebrile. Upon assessment patient is noted to have some periorbital bruising on the right per daughter patient underwent surgery to repair a detached retina 10 days ago. Does have chronic lymphedema but concern for mild underlying celllulitis of the lower extremities. Urine culture comes back showing klebsiella pneumoniae which is pansensitive to ceftriaxone. Patient did pull her IV out and was transitioned to oral cefdinir. No longer having reports of burning with urination. She is alert x 3 although having some hospital delirium improved with seroquel and has been sleeping throughout the evening. She has no acute complaints. [facility]. No narcotics on discharge. Please see medication reconciliation for a list of current medications. Thank you for allowing us to participate in the care of this patient. The impression and plan of care has been dictated by Haylie Bernabe, Nurse Practitioner as directed. Dr. Carmencita MD I have performed a history and physical examination and medical decision making of this patient, discussed the same with the dictator, and agree with the dictators assessment and plan as written, documented as a scribe. Based on total visit time, I have performed more than 50% of this visit. Patient Condition at Discharge: Stable Plan - Discharge Summary Discharge Rx Participant: No New Discharge Prescriptions: New Escitalopram [Lexapro] 10 mg PO DAILY tab Nystatin 100,000 Unit/gm Powd [Mycostatin Powder] 1 applic TOPICAL BID each amLODIPine [Norvasc] 10 mg PO DAILY tab Cefdinir [Omnicef] 300 mg PO BID 2 Days #4 cap QUEtiapine [SEROquel] 12.5 mg PO HS tab prednisoLONE ACETATE 1% OPHTH [Pred Forte 1%] 1 drops RIGHT EYE BID ml Acetaminophen Tab [Tylenol] 650 mg PO Q6HR PRN tab PRN Reason: Mild Pain Or Fever > 100.5 Continue Furosemide [Lasix] 40 mg PO DAILY Apixaban [Eliquis] 5 mg PO BID tab Atorvastatin [Lipitor] 40 mg PO DAILY tab Metoprolol Succinate (ER) [Toprol XL] 25 mg PO DAILY tab Omeprazole 20 mg PO AC-BRKFST Latanoprost Ophth [Xalatan 0.005%] 1 drop BOTH EYES HS Ferrous Sulfate [Iron (65 MG Elemental)] 325 mg PO DAILY Levothyroxine Sodium [Synthroid] 25 mcg PO DAILY Discharge Medication List Furosemide [Lasix] 40 mg PO DAILY 07/08/23 [History] Apixaban [Eliquis] 5 mg PO BID tab 07/15/23 [Rx] Atorvastatin [Lipitor] 40 mg PO DAILY tab 07/15/23 [Rx] Metoprolol Succinate (ER) [Toprol XL] 25 mg PO DAILY tab 07/15/23 [Rx] Omeprazole 20 mg PO AC-BRKFST 08/30/23 [History] Latanoprost Ophth [Xalatan 0.005%] 1 drop BOTH EYES HS 12/18/23 [History] Ferrous Sulfate [Iron (65 MG Elemental)] 325 mg PO DAILY 02/18/24 [History] Levothyroxine Sodium [Synthroid] 25 mcg PO DAILY 11/01/24 [History] Acetaminophen Tab [Tylenol] 650 mg PO Q6HR PRN tab 11/07/24 [Rx] Cefdinir [Omnicef] 300 mg PO BID 2 Days #4 cap 11/07/24 [Rx] Escitalopram [Lexapro] 10 mg PO DAILY tab 11/07/24 [Rx] Nystatin 100,000 Unit/gm Powd [Mycostatin Powder] 1 applic TOPICAL BID each 11/07/24 [Rx] QUEtiapine [SEROquel] 12.5 mg PO HS tab 11/07/24 [Rx] amLODIPine [Norvasc] 10 mg PO DAILY tab 11/07/24 [Rx] prednisoLONE ACETATE 1% OPHTH [Pred Forte 1%] 1 drops RIGHT EYE BID ml 11/07/24 [Rx] Follow up Appointment(s)/Referral(s): Maye Scruggs MD [Primary Care Provider] - 1-2 days Ambulatory/Diagnostic Orders: Basic Metabolic Panel [LAB.AMB] Location: None Selected Complete Blood Count w/diff [LAB.AMB] Time Frame: 3 Days, Location: None Selected Activity/Diet/Wound Care/Special Instructions: Complete 2 more days of antibiotics Discharge Disposition: TRANSFER TO SNF/ECF
[2024-11-07 15:21] VITALS: BP 135/60; PULSE 55; TEMP 97.4
== END 2024-11-07 16:39 | DRG 689 ==
LOC: EC 20:29 → 6NMEDSUR 11-01 02:10 → OBSVTOIN 11-01 06:45 → 4SSUR 11-01 08:00 → 3SCARD 11-01 18:01 → 4SSUR 11-04 21:43
PROVIDERS: ADMIT Hospitalist; ATTEND Hospitalist
DX: N39.0 Urinary tract infection, site not specified (principal); G93.41 Metabolic encephalopathy; E87.1 Hypo-osmolality and hyponatremia; L03.115 Cellulitis of right lower limb; E86.0 Dehydration; I48.0 Paroxysmal atrial fibrillation; E03.9 Hypothyroidism, unspecified; Z68.38 Body mass index [BMI] 38.0-38.9, adult; L03.116 Cellulitis of left lower limb; N17.9 Acute kidney failure, unspecified; E86.1 Hypovolemia; R29.6 Repeated falls; I44.0 Atrioventricular block, first degree; R00.1 Bradycardia, unspecified; E66.9 Obesity, unspecified; E78.5 Hyperlipidemia, unspecified; S00.11XA Contusion of right eyelid and periocular area, initial encounter; I89.0 Lymphedema, not elsewhere classified; Z96.1 Presence of intraocular lens; Z79.899 Other long term (current) drug therapy; Z88.1 Allergy status to other antibiotic agents; Z88.8 Allergy status to other drugs, medicaments and biological substances; Z79.890 Hormone replacement therapy; Z91.81 History of falling; Z79.01 Long term (current) use of anticoagulants
CPT/HCPCS: 36415; 70450; 71046; 80048; 80053; 81001; 83605; 83735; 83880; 84484; 85025; 85610; 85730; 87040; 87077; 87086; 87186; 87636; 93005; 96361; 96365; 96375; 96376; 99285

== ENCOUNTER → 2025-01-06 | Day surgery (SDC) | payer MEDICARE, OTHER ==
[2025-01-04 16:10] VITALS: BMI 44.0
[~2025-01-06] MED LIST: LACTATED RINGERS 1,000 ML IV SCH; LIDOCAINE 1% (10MG/ML) FOR IV START INTRADERMA PRN; LIDOCAINE 1% INJ 10MG/ML (20 ML MDV) ONE; PROPOFOL 10 MG/ML 20 ML VIAL IV ONE
[2025-01-06 07:27] VITALS: RESP 16; TEMP 96.9
[2025-01-06] MEDS: IV FLUID CONTINUATION 1,000 ML IV ONE (07:40)
[2025-01-06 07:44] LABS: Glucose,Whole Blood 85 mg/dL (70-110)
[2025-01-06] MEDS: LACTATED RINGERS 1,000 ML IV ONE (07:55)
--- NOTE | 2025-01-06 08:05 | P.PCN ---
Date of Procedure: 01/06/25 Procedure(s) Performed: Brief history: Patient is a pleasant 79-year-old white female scheduled for an elective upper endoscopy as well as colonoscopy as a part of evaluation of iron deficiency anemia, screening for colon cancer and possible follow-up Procedure performed: Esophagogastroduodenoscopy with biopsy Colonoscopy Preoperative diagnosis: Iron deficiency anemia Screening for colon cancer and positive Cologuard Anesthesia: MAC Procedure: After informed consent was obtained from the patient was brought into the endoscopy unit and IV sedation was administered by anesthesia under continuous monitoring. Initially upper endoscopy was done. The Olympus GF 160 video endoscope was inserted inserted into the mouth and esophagus intubated without any difficulty and was gradually advanced into the stomach and duodenum and carefully examined. The bulb and second part of the duodenum appeared normal. The scope was then withdrawn into the stomach adequately insufflated with air and upon careful examination the antrum had mild gastritis and a 5 mm gastric polyp noted which was biopsied. Mucosa of the body, cardia and fundus appeared normal. The scope was then withdrawn into the esophagus. The GE junction was located at 40 cm to the incisors. It appeared regular with no erythema erosions or ulcerations. Rest of the esophagus appeared normal. Patient tolerated the procedure well. At this time the patient continued to remain sedation. Initial digital rectal examination was normal. Olympus CF 160 video colonoscope was then inserted into the rectum and gradually advanced to the cecum without any difficulty. Careful examination was performed as the scope was gradually being withdrawn. The prep was excellent. The cecum, ascending colon, transverse colon, descending colon, sigmoid colon and rectum appeared normal. Retroflexion was performed in the rectum and no lesions were noted. Patient tolerated the procedure well. Impression: 1. Upper endoscopy revealed mild antral gastritis and a 5 mm gastric antral polyp status post biopsy 2. Colonoscopy was within normal limits with no evidence of colorectal neoplasia Recommendations: Findings of this examination were discussed with the patient as well as her family. She was advised to follow-up the biopsy results. Continue with omeprazole 20 mg daily continue iron supplements daily. Monitor CBC on a periodic basis. Follow-up in the office in 1 month.
[2025-01-06 08:23] LABS: Glucose,Whole Blood 89 mg/dL (70-110)
[2025-01-06 09:05] VITALS: BP 110/52; PULSE 59
== END ==
LOC: ORWHC2ENDO 06:42
PROVIDERS: ATTEND Internal Medicine Gastroenterology
DX: Z12.11 Encounter for screening for malignant neoplasm of colon (principal); R19.5 Other fecal abnormalities; K31.7 Polyp of stomach and duodenum; K29.70 Gastritis, unspecified, without bleeding
CPT/HCPCS: 88305; 88342; 45378; 43239; J2003; J2704

== ENCOUNTER 2025-03-30 22:07 | Inpatient (IN) | payer MEDICARE, OTHER ==
--- NOTE | 2025-03-30 23:07 | ED ---
General Adult HPI - General Chief complaint: Altered Mental Status Stated complaint: altered mental status Time Seen by Provider: 03/30/25 22:13 Source: patient, EMS Mode of arrival: EMS - History of Present Illness Initial comments: Dictation was produced using [employer] dictation software. please excuse any grammatical, word or spelling errors. Chief Complaint: 79-year-old female with altered mental status History of Present Illness: Patient is a 79-year-old female with history of dementia presents with altered mental status since yesterday. Patient is a resident at [facility] when she was found to be altered. They were concerned that patient has a UTI. Patient alert and oriented times 3 out of 4. She is however a decent historian. States that she has no complaints. The ROS documented in this emergency department record has been reviewed and confirmed by me. Those systems with pertinent positive or negative responses have been documented in the HPI. All other systems are other negative and/or noncontributory. - Related Data Home Medications Medication Instructions Recorded Confirmed Furosemide [Lasix] 40 mg PO DAILY 07/08/23 01/29/25 Omeprazole 20 mg PO AC-BRKFST 08/30/23 01/29/25 Latanoprost Ophth [Xalatan 0.005%] 1 drop BOTH EYES HS 12/18/23 01/29/25 Ferrous Sulfate [Iron (65 MG 325 mg PO DAILY 02/18/24 01/29/25 Elemental)] Levothyroxine Sodium [Synthroid] 25 mcg PO DAILY 11/01/24 01/29/25 Atorvastatin [Lipitor] 40 mg PO HS 01/04/25 01/29/25 Escitalopram [Lexapro] 10 mg PO DAILY 01/04/25 01/29/25 Metoprolol Succinate (ER) [Toprol 25 mg PO DAILY 01/04/25 01/29/25 XL] Albuterol Inhaler [Ventolin Hfa 2 puff INHALATION RT-Q4H PRN 01/29/25 01/29/25 Inhaler] amLODIPine [Norvasc] 10 mg PO DAILY 01/29/25 01/29/25 Previous Rx's Medication Instructions Recorded Apixaban [Eliquis] 5 mg PO BID tab 07/15/23 Allergies Allergy/AdvReac Type Severity Reaction Status Date / Time amoxicillin [From Augmentin] Allergy Rash/Hives Verified 01/29/25 13:18 clavulanic acid Allergy Rash/Hives Verified 01/29/25 13:18 [From Augmentin] Review of Systems ROS Statement: Those systems with pertinent positive or pertinent negative responses have been documented in the HPI. ROS Other: All systems not noted in ROS Statement are negative. Past Medical History Past Medical History: Atrial Fibrillation, Dementia, Eye Disorder, GERD/Reflux, Hyperlipidemia, Osteoarthritis (OA), Thyroid Disorder, Vascular Disorder Additional Past Medical History / Comment(s): lower leg edema, UTIs, History of Any Multi-Drug Resistant Organisms: VRE Date of last positivie culture/infection: 02/05/2024 MDRO Source:: blood culture Past Surgical History: Appendectomy, Joint Replacement, Tubal Ligation Additional Past Surgical History / Comment(s): madeline hip and knees total replacement; cat sx with lens implants both eyes, surgery for glaucoma Past Anesthesia/Blood Transfusion Reactions: No Reported Reaction Past Psychological History: No Psychological Hx Reported Smoking Status: Never smoker Past Alcohol Use History: None Reported Past Drug Use History: None Reported - Past Family History Father Additional Family Medical History / Comment(s): PASSED OF OLD AGE per patient Mother Additional Family Medical History / Comment(s): PASSED OF OLD AGE per patient General Exam - General Exam Comments Initial Comments: PHYSICAL EXAM: General Impression: Alert and oriented x3/4, not in acute distress HEENT: Normocephalic atraumatic, extra-ocular movements intact, pupils equal and reactive to light bilaterally, mucous membranes moist. Cardiovascular: Heart regular rate and rhythm Chest: Able to complete full sentences, no retractions, no tachypnea Abdomen: abdomen soft, non-tender, non-distended, no organomegaly Musculoskeletal: Pulses present and equal in all extremities, no peripheral edema Motor: no focal deficits noted Neurological: CN II-XII grossly intact, no focal motor or sensory deficits noted Skin: Intact with no visualized rashes Psych: Normal affect and mood Course Vital Signs 03/30/25 22:36 Temperature 98.1 F Pulse Rate 74 Respiratory 14 Rate Blood Pressure 124/69 O2 Sat by Pulse 97 Oximetry EKG Findings - EKG Comments: EKG Findings:: My EKG interpretation: Ventricular rate 75, sinus rhythm,. 09/08/2026, QRS 95, QTc 4 5. No NH prolongation, no QTC prolongation, no ST or T- wave changes noted. Overall, this EKG is unremarkable Medical Decision Making - Medical Decision Making Was pt. sent in by a medical professional or institution (, [facility], [facility], urgent care, hospital, or skilled nursing...) When possible be specific @ -detention Did you speak to anyone other than the patient for history (EMS, parent, family, police, friend...)? What history was obtained from this source @ -No Did you review nursing and triage notes (agree or disagree)? Why? @ -I reviewed and agree with nursing and triage notes Were old charts reviewed (outside hosp., previous admission, EMS record, old EKG, old radiological studies, urgent care reports/EKG's, skilled nursing records)? Report findings @ -No old charts were reviewed Differential Diagnosis (chest pain, altered mental status, abdominal pain women, abdominal pain men, vaginal bleeding, musculoskeletal, weakness, fever, dyspnea, syncope, headache, dizziness, GI bleed, back pain, seizure, CVA, palpatations, mental health)? @ -Differential Altered Mental Status: Hypoglycemia, DKA, hypercapnia, ETOH, overdose, CO poisoning, trauma, myxedema coma, HTN encephalopathy, infection, encephalitis, psychosis, intercranial hemorrhage, hepatic encephalopathy, meningitis, CVA, this is not meant to be an all-inclusive list EKG interpreted by me (3pts min.). @ -See above X-rays interpreted by me (1pt min.). @ -None done CT interpreted by me (1pt min.). @ -CT brain is unremarkable U/S interpreted by me (1pt. min.). @ -None done What testing was considered but not performed or refused? (CT, X-rays, U/S, labs )? Why? @ -None What meds were considered but not given or refused? Why? @ -None Was smoking cessation discussed for >3mins.? @ -No Were there social determinants of health that impacted care today? How? (Homelessness, low income, unemployed, alcoholism, drug addiction, transportation, low edu. Level, literacy, decrease access to med. care, custodial, rehab)? @ -No Was there de-escalation of care discussed even if they declined (Discuss DNR or withdrawal of care, Hospice)? DNR status @ -No What co-morbidities impacted this encounter? (DM, HTN, Smoking, COPD, CAD, Cancer, CVA, ARF, Chemo, Hep., AIDS, mental health diagnosis, sleep apnea, morbid obesity)? @ -Dementia Was patient admitted / discharged? Hospital course, mention meds given and route, prescriptions, significant lab abnormalities, going to OR and other pertinent info. @ -79-year-old female presents emergency department with dementia. Patient well-appearing at bedside. Vital signs stable. Patient eventually is prone to urinary tract infections. Laboratory evaluation shows UTI. Rest of labs within acceptable limits. Microbiology results in the past shows patient had been positive Klebsiella with narrow resistance. Patient given ceftriaxone will be admitted. Case discussed with hospitalist for admission Did you discuss the management of the patient with other professionals (professionals i.e. , PA, [facility], lab, RT, psych nurse, social service liaison, debit agent, teacher, retirement officer, residential case manager)? Give summary @ -See above Was critical care preformed (if so, how long)? @ -No Undiagnosed new problem with uncertain prognosis? @ -No Drug Therapy requiring intensive monitoring for toxicity (Heparin, Nitro, Insulin, Cardizem)? @ -No Were any procedures done? @ -No Diagnosis/symptom? Acute, or Chronic, or Acute on Chronic? Uncomplicated (without systemic symptoms) or Complicated (systemic symptoms)? @ -UTI with mental status changes Side effects of treatment? @ -No Exacerbation, Progression, or Severe Exacerbation? @ -No Poses a threat to life or bodily function? How? (Chest pain, [place], [place], pneumonia, PE, COPD, DKA, ARF, appy, cholecystitis, CVA, Diverticulitis, Homicidal, Suicidal, threat to staff... and all critical care pts) @ -yes - Lab Data Result diagrams: 03/30/25 22:48 03/30/25 22:48 Lab Results 03/30/25 03/30/25 03/31/25 Range/Units 22:48 22:48 00:35 WBC 4.83 (4.50-10.00) 10*3/uL RBC 3.14 L (4.10-5.20) 10*6/uL Hgb 9.8 L (12.0-15.0) g/dL Hct 29.3 L (37.2-46.3) % MCV 93.3 (80.0-97.0) fL MCH 31.2 (27.0-32.0) pg MCHC 33.4 (32.0-37.0) g/dL Plt Count 116 L (140-440) 10*3/uL MPV 10.4 (9.5-12.2) fL Immature Gran % (Auto) 0.2 % Neutrophils % 50.6 % Lymphocytes % 36.6 % Monocytes % 12.0 % Eosinophils % 0.4 % Basophils % 0.2 % Immature Gran # 0.01 (0.00-0.04) 10*3/uL Neutrophils # 2.44 (1.80-7.70) 10*3/uL Lymphocytes # 1.77 (0.90-5.00) 10*3/uL Monocytes # 0.58 (0.20-1.00) 10*3/uL Eosinophils # 0.02 L (0.04-0.35) 10*3/uL Basophils # 0.01 (0.00-0.10) 10*3/uL Sodium 142 (137-145) mmol/L Potassium 5.2 H (3.5-5.1) mmol/L Chloride 107 (98-107) mmol/L Carbon Dioxide 27 (22-30) mmol/L Anion Gap 8 mmol/L BUN 39 H (7-17) mg/dL Creatinine 1.49 H (0.52-1.04) mg/dL Est GFR (CKD-EPI)AfAm 38 (>60 ml/min/1.73 sqM) Est GFR (CKD-EPI)NonAf 33 (>60 ml/min/1.73 sqM) Glucose 85 (74-99) mg/dL Calcium 9.4 (8.4-10.2) mg/dL Magnesium 2.2 (1.6-2.3) mg/dL Total Bilirubin 1.0 (0.2-1.3) mg/dL AST 29 (14-36) U/L ALT 25 (4-34) U/L Alkaline Phosphatase 153 H (38-126) U/L Total Protein 6.5 (6.3-8.2) g/dL Albumin 3.3 L (3.5-5.0) g/dL Urine Color Colorless Urine Appearance Clear (Clear) Urine pH 7.5 (5.0-8.0) Ur Specific [place] 1.010 (1.001-1.035) Urine Protein Negative (Negative) Urine Glucose (UA) Negative (Negative) Urine Ketones Negative (Negative) Urine Blood Small H (Negative) Urine Nitrite Negative (Negative) Urine Bilirubin Negative (Negative) Urine Urobilinogen <2.0 (<2.0) mg/dL Ur Leukocyte Esterase Large H (Negative) Urine RBC 3 (0-5) /hpf Urine WBC 82 H (0-5) /hpf Ur Squamous Epith Cells <1 (0-4) /hpf Hyaline Casts 3 H (0-2) /lpf Urine Mucus Rare H (None) /hpf Disposition Clinical Impression: Altered mental status, UTI (urinary tract infection) Disposition: ADMITTED IP TO THIS HOSP Condition: Fair Referrals: Maye Scruggs MD [Primary Care Provider] - 1-2 days Decision Time: 01:29
[2025-03-30 23:08] LABS: Basophils # (A) 0.01 10*3/uL (0.00-0.10); Basophils % (A) 0.2 %; Eosinophils # (A) 0.02 10*3/uL (0.04-0.35); Eosinophils % (A) 0.4 %; HCT 29.3 % (37.2-46.3); HGB 9.8 g/dL (12.0-15.0); Lymphocytes # (A) 1.77 10*3/uL (0.90-5.00); Lymphocytes % (A) 36.6 %; MCH 31.2 pg (27.0-32.0); MCHC 33.4 g/dL (32.0-37.0); MCV 93.3 fL (80.0-97.0); Monocytes # (A) 0.58 10*3/uL (0.20-1.00); Monocytes % (A) 12.0 %; Neutrophils # (A) 2.44 10*3/uL (1.80-7.70); Neutrophils % (A) 50.6 %; Platelet Count 116 10*3/uL (140-440); RBC 3.14 10*6/uL (4.10-5.20); RDW 17.2 % (11.5-14.5); WBC 4.83 10*3/uL (4.50-10.00)
[2025-03-30 23:32] LABS: ALT 25 U/L (4-34); AST 29 U/L (14-36); African American GFR (CKD) 38 (>60 ml/min/1.73 sqM); Albumin 3.3 g/dL (3.5-5.0); Alkaline Phosphatase 153 U/L (38-126); Anion Gap 8 mmol/L; Blood Urea Nitrogen 39 mg/dL (7-17); Calcium 9.4 mg/dL (8.4-10.2); Carbon Dioxide 27 mmol/L (22-30); Chloride 107 mmol/L (98-107); Glucose 85 mg/dL (74-99); Magnesium 2.2 mg/dL (1.6-2.3); Non-African American GFR(CKD) 33 (>60 ml/min/1.73 sqM); Potassium 5.2 mmol/L (3.5-5.1); Sodium 142 mmol/L (137-145); Total Protein 6.5 g/dL (6.3-8.2)
--- NOTE | 2025-03-31 00:24 | CT ---
EXAM: CT Head Without Intravenous Contrast CLINICAL HISTORY: ITS.REASON CT Reason: ams TECHNIQUE: Axial computed tomography images of the head/brain without intravenous contrast. CTDI is 49.1 mGy and DLP is 1156.4 mGy-cm. This CT exam was performed using one or more of the following dose reduction techniques: automated exposure control, adjustment of the mA and/or kV according to patient size, and/or use of iterative reconstruction technique. COMPARISON: Prior head CT from January 29, 2025. FINDINGS: Brain: Remote ischemic injury of the left capsule.. No hemorrhage. Mild nonspecific white matter changes. No edema. Ventricles: Unremarkable. No ventriculomegaly. Bones/joints: Unremarkable. No acute fracture. Soft tissues: There is silicone in the right lobe. Sinuses: Unremarkable as visualized. No acute sinusitis. Mastoid air cells: Unremarkable as visualized. No mastoid effusion. IMPRESSION: No evidence of acute intracranial pathology.
[2025-03-31 00:44] LABS: Bilirubin,Urine Negative (Negative); Blood,Urine Small (Negative); Color,Urine Colorless; Glucose,Urine (UA) Negative (Negative); Hyaline Casts,Urine 3 /lpf (0-2); Ketones,Urine Negative (Negative); Leukocyte Esterase,Urine Large (Negative); Mucus,Urine Rare /hpf; Nitrite,Urine Negative (Negative); PH, Urine 7.5 (5.0-8.0); Protein,Urine Negative (Negative); RBC,Urine 3 /hpf (0-5); Specific Gravity,Urine 1.010 (1.001-1.035); Squamous Epithelial Cell,Urine <1 /hpf (0-4); Urobilinogen,Urine <2.0 mg/dL (<2.0); WBC,Urine 82 /hpf (0-5)
[2025-03-31] MEDS ORDERED: ACETAMINOPHEN TAB 325 MG TAB PO PRN (01:16)
[2025-03-31] MEDS ORDERED: NALOXONE 0.4 MG/ML 1 ML VIAL IV PRN (01:16)
[2025-03-31] MEDS: cefTRIAXone IN SWFI 1,000 MG/10 ML SYRINGE IVP STA (01:44)
[2025-03-31] MEDS: SODIUM CHLORIDE 0.9% 1,000 ML IV SCH (01:45)
[2025-03-31] MEDS ORDERED: guaiFENesin SYRUP 100MG/5ML 200 MG/10 ML CUP PO PRN (13:29)
[2025-03-31] MEDS ORDERED: NA PHOS,M-B/NA PHOS,DI-BA 133 ML ENEMA RECTAL PRN (13:29)
[2025-03-31] MEDS ORDERED: NON FORMULARY DRUG (Albuterol Inhaler 90 MCG Puff) INHALATION PRN (13:29)
[2025-03-31] MEDS ORDERED: MAGNESIUM HYDROXIDE 2,400 MG/30 ML CUP PO PRN (13:29)
[2025-03-31] MEDS ORDERED: IPRATROPIUM-ALBUTEROL 3 ML NEB INHALATION PRN (13:29)
[2025-03-31] MEDS ORDERED: cefTRIAXone 1,000 MG VIAL (IM USE) IM SCH (13:30)
[2025-03-31] MEDS: APIXABAN 5 MG TAB PO SCH (17:58)
[2025-03-31] MEDS: ATORVASTATIN 40 MG TAB PO SCH (22:26)
[2025-03-31] MEDS: LATANOPROST 0.005% OPHTH DROPS 2.5 ML BTL BOTH EYES SCH (22:26)
--- NOTE | 2025-04-01 00:50 | HP ---
HISTORY AND PHYSICAL CHIEF COMPLAINT: Change in mental status. HISTORY OF PRESENT ILLNESS: This is an 79-year-old woman with a past medical history of multiple medical problems including dementia, who is living in [facility], was noted to have some change in mental status. The patient is gesturing with her hands and the senior care was concerned about UTI, but the patient does not have any urinary symptoms at this time. Rather, the patient's urine has some abnormal wbc's also. There is no history of any fever, rigors, or chills at this time. PAST MEDICAL HISTORY: History of atrial fibrillation, history of dementia. Rest of the chart is also reviewed. Recurrent UTIs. HOME MEDICATIONS: Reviewed; include Dulcolax. Doses and rest of medications reviewed. ALLERGIES: Amoxicillin. FAMILY HISTORY: Could not be taken because of change in mental status. SOCIAL HISTORY: Could not be taken because of change in mental status. REVIEW OF SYSTEMS: Could not be taken because of change in mental status. PHYSICAL EXAMINATION: VITAL SIGNS: Pulse is 59, blood pressure 110/70, respirations 18. HEENT: Conjunctivae normal. NECK: No JVD. CARDIOVASCULAR: S1 and S2. RESPIRATION: Breath sounds diminished at the bases. Few scattered rhonchi. ABDOMEN: Soft, obese. LEGS: No edema. NERVOUS SYSTEM: Diffusely weak. Could not be examined completely. SKIN: No ulcers. LABORATORY DATA: Reviewed. ASSESSMENT: 1. Change in mental status, possible acute metabolic encephalopathy. 2. Possible acute urinary tract infection present on admission. 3. Possible dehydration. 4. Atrial fibrillation. 5. Dementia. 6. Hyperlipidemia. 7. Multiple complex medical issues. RECOMMENDATIONS: This 79-year-old woman presented with multiple complex medical issues. We will monitor the patient closely. Continue the current management and continue symptomatic treatment. Empiric antibiotics and infectious disease evaluation, and also resume home medications. Prognosis guarded because of multiple complex medical conditions. Further recommendations to follow. See orders for details. MMODL / IJN: [id number] / MTDD
[2025-04-01] MEDS: LEVOTHYROXINE 25 MCG TAB PO SCH (06:47)
[2025-04-01] MEDS: PANTOPRAZOLE 40 MG TABLET PO SCH (06:47)
[2025-04-01] MEDS: amLODIPine 10 MG TAB PO SCH (09:11)
[2025-04-01] MEDS: METOPROLOL SUCCINATE (ER) 25 MG TAB.ER.24H PO SCH (09:11)
[2025-04-01] MEDS: FERROUS SULFATE 325 MG TAB PO SCH (09:11)
[2025-04-01] MEDS: FUROSEMIDE 40 MG TAB PO SCH (09:11)
[2025-04-01] MEDS: ESCITALOPRAM 10 MG TAB PO SCH (09:12)
--- NOTE | 2025-04-01 10:10 | P.CONS ---
History of Present Illness - Reason for Consult Consult date: 03/31/25 UTI ? VRE Requesting physician: Kelvin Green - Chief Complaint Mental status changes x 1 day - History of Present Illness Patient is a 79-year-old female with a past medical history significant for Atrial Fibrillation, Dementia, Eye Disorder, GERD/Reflux, Hyperl ipidemia, Osteoarthritis (OA), Thyroid Disorder, Vascular Disorder and assisted resident patient has been sent to the hospital concern for altered mental status concern for UTI on arrival to the ER patient was afebrile and no fever have been recorded subsequently patient was not tachycardic or hypotensive he did have white count of 4.83 BUN and creatinine has been mild elevated urine has been positive CT of the brain was negative for any bleed patient was started on ceftriaxone admitted the hospital infectious he was consulted concerning for UTI and a question of VRE though review of her culture data last urine culture have been positive for Klebsiella patient with history of denies having any headache or URI symptoms no chest pain shortness of the cough no abdominal pain or any diarrhea Review of Systems Positive point and negatives has been mentioned in the HPI, complete review of systems was performed and all other systems are negative Past Medical History Past Medical History: Atrial Fibrillation, Dementia, Eye Disorder, GERD/Reflux, Hyperlipidemia, Osteoarthritis (OA), Thyroid Disorder, Vascular Disorder Additional Past Medical History / Comment(s): lower leg edema, UTIs, History of Any Multi-Drug Resistant Organisms: VRE Year Discovered:: 02/05/2024 MDRO Source:: blood culture Past Surgical History: Appendectomy, Joint Replacement, Tubal Ligation Additional Past Surgical History / Comment(s): madeline hip and knees total replacement; cat sx with lens implants both eyes, surgery for glaucoma Past Anesthesia/Blood Transfusion Reactions: No Reported Reaction Past Psychological History: No Psychological Hx Reported Smoking Status: Never smoker Past Alcohol Use History: None Reported Past Drug Use History: None Reported - Past Family History Father Additional Family Medical History / Comment(s): PASSED OF OLD AGE per patient Mother Additional Family Medical History / Comment(s): PASSED OF OLD AGE per patient Medications and Allergies Home Medications Medication Instructions Recorded Confirmed Type Furosemide [Lasix] 40 mg PO DAILY 07/08/23 03/31/25 History Omeprazole 20 mg PO DAILY@0600 08/30/23 03/31/25 History Latanoprost Ophth [Xalatan 0.005%] 1 drop BOTH EYES HS 12/18/23 03/31/25 History Ferrous Sulfate [Iron (65 MG 325 mg PO DAILY 02/18/24 03/31/25 History Elemental)] Levothyroxine Sodium [Synthroid] 25 mcg PO DAILY@0600 11/01/24 03/31/25 History Atorvastatin [Lipitor] 40 mg PO HS 01/04/25 03/31/25 History Escitalopram [Lexapro] 10 mg PO DAILY 01/04/25 03/31/25 History Metoprolol Succinate (ER) [Toprol 25 mg PO DAILY 01/04/25 03/31/25 History XL] Albuterol Inhaler [Ventolin Hfa 1 - 2 puff INHALATION RT-Q4H PRN 01/29/25 03/31/25 History Inhaler] amLODIPine [Norvasc] 10 mg PO DAILY 01/29/25 03/31/25 History Apixaban [Eliquis] 5 mg PO BID@0800,1700 03/31/25 03/31/25 History Ciprofloxacin HCl [Cipro] 250 mg PO BID@0800,1700 03/31/25 03/31/25 History Ipratropium-Albuterol Nebulize 3 ml INHALATION RT-Q6H PRN 03/31/25 03/31/25 History [Duoneb 0.5 mg-3 mg/3 ml Soln] Magnesium Hydroxide [Milk of 2,400 mg PO DAILY PRN 03/31/25 03/31/25 History Magnesia] Na Phos,M-B/Na Phos,Di-Ba [Fleet 133 ml RECTAL DAILY PRN 03/31/25 03/31/25 History Adult] bisacodyL [Dulcolax] 10 mg RECTAL DAILY PRN 03/31/25 03/31/25 History guaiFENesin SYRUP 100MG/5ML 200 mg PO Q4H PRN 03/31/25 03/31/25 History [Robitussin] Allergies Allergy/AdvReac Type Severity Reaction Status Date / Time amoxicillin [From Augmentin] Allergy Rash/Hives Verified 03/31/25 09:57 cefuroxime Allergy Unknown Verified 03/31/25 09:57 clavulanic acid Allergy Rash/Hives Verified 03/31/25 09:57 [From Augmentin] Physical Exam Vitals: Vital Signs Temp Pulse Resp BP Pulse Ox 03/31/25 10:27 97.4 F L 54 L 16 116/75 96 03/31/25 08:40 57 L 20 136/84 98 03/31/25 06:41 97.6 F 59 L 18 125/72 95 03/31/25 04:00 18 03/31/25 03:35 66 16 124/83 96 03/31/25 01:34 66 16 115/51 97 03/30/25 22:36 98.1 F 74 14 124/69 97 Intake and Output 03/30/25 03/31/25 03/31/25 22:59 06:59 14:59 Other: Weight 113.398 kg GENERAL DESCRIPTION: Elderly female lying in bed, no distress. No tachypnea or accessory muscle of respiration use. HEENT: Shows Pallor , no scleral icterus. Oral mucous membrane is dry. NECK: Trachea central, no thyromegaly. LUNGS: Unlabored breathing. Clear to auscultation anteriorly. No wheeze or crackle. HEART: S1, S2, regular rate and rhythm. No loud murmur ABDOMEN: Soft, mild suprapubic tenderness EXTREMITIES: Swelling to bilateral lower extremity no significant redness SKIN: No rash, no masses palpable. NEUROLOGICAL: The patient is awake, alert, mood and affect normal. Results CBC & Chem 7: 03/30/25 22:48 03/30/25 22:48 Labs: Abnormal Lab Results - Last 24 Hours (Table) 03/30/25 03/30/25 03/31/25 Range/Units 22:48 22:48 00:35 RBC 3.14 L (4.10-5.20) 10*6/uL Hgb 9.8 L (12.0-15.0) g/dL Hct 29.3 L (37.2-46.3) % Plt Count 116 L (140-440) 10*3/uL Eosinophils # 0.02 L (0.04-0.35) 10*3/uL Potassium 5.2 H (3.5-5.1) mmol/L BUN 39 H (7-17) mg/dL Creatinine 1.49 H (0.52-1.04) mg/dL Alkaline Phosphatase 153 H (38-126) U/L Albumin 3.3 L (3.5-5.0) g/dL Urine Blood Small H (Negative) Ur Leukocyte Esterase Large H (Negative) Urine WBC 82 H (0-5) /hpf Hyaline Casts 3 H (0-2) /lpf Urine Mucus Rare H (None) /hpf Assessment and Plan (1) Allergy to multiple antibiotics Current Visit: Yes Status: Acute Code(s): Z88.1 - ALLERGY STATUS TO OTHER AN TIBIOTIC AGENTS SNOMED Code(s): 443359216 (2) Altered mental status Current Visit: Yes Status: Acute Code(s): R41.82 - ALTERED MENTAL STATUS, UNSPECIFIED SNOMED Code(s): 998893154 (3) Urinary tract infection Current Visit: Yes Status: Acute Code(s): N39.0 - URINARY TRACT INFECTION, SITE NOT SPECIFIED SNOMED Code(s): 62864249 Plan: 1patient presented to hospital with mental status changes in this patient did have positive UA mild suprapubic tenderness concern for possible symptomatic UTI likely from enteric gram-negative pathogen with the recent culture being done in the outpatient setting on 03/29/2025 is growing gram-negative to be the likely pathogen rather than VRE. 2patient to be treated with Rocephin while waiting for the culture to finalize. We will follow on clinical condition and cultures to further adjust medication if needed Thank you for this consultation we will follow the patient along with you Dictation was produced using [employer] dictation software. please excuse any grammatical, word or spelling errors. Time with Patient: Greater than 30
[2025-04-01 10:13] LABS: Anion Gap 9.00 mmol/L (4.00-12.00); BUN/Creat Ratio 30.11 Ratio (12.00-20.00); Blood Urea Nitrogen 27.1 mg/dL (9.0-27.0); Calcium 8.9 mg/dL (8.7-10.3); Carbon Dioxide 24.0 mmol/L (21.6-31.8); Chloride 110 mmol/L (96-109); Glucose 94 mg/dL (70-110); Potassium 4.8 mmol/L (3.5-5.5); Sodium 143 mmol/L (135-145)
[2025-04-01 10:48] LABS: Basophils # (A) 0.01 X 10*3/uL (0.00-0.10); Basophils % (A) 0.4 %; Eosinophils # (A) 0.05 X 10*3/uL (0.04-0.35); Eosinophils % (A) 2.0 %; HCT 28.8 % (37.2-46.3); HGB 9.0 g/dL (12.0-15.0); Immature Grans, Automated 0 %; Lymphocytes # (A) 1.08 X 10*3/uL (0.90-5.00); Lymphocytes % (A) 43.9 %; MCH 30.6 pg (27.0-32.0); MCHC 31.3 g/dL (32.0-37.0); MCV 98.0 FL (80.0-97.0); Monocytes # (A) 0.27 X 10*3/uL (0.20-1.00); Monocytes % (A) 11.0 %; NRBC Per 100 WBC 0 X 10*3/uL (0.00-0.01); Neutrophils # (A) 1.05 X 10*3/uL (1.80-7.70); Neutrophils % (A) 42.7 %; Platelet Count 99 X 10*3/uL (140-440); RBC 2.94 X 10*6/uL (4.10-5.20); RDW 16.7 % (11.5-14.5); WBC 2.46 X 10*3/uL (4.50-10.00)
--- NOTE | 2025-04-01 15:37 | P.PN ---
Subjective Progress Note Date: 04/01/25 Principal diagnosis: Reason for follow-up visit urinary tract infection Patient is a 79-year-old female with a past medical history significant for Atrial Fibrillation, Dementia, Eye Disorder, GERD/Reflux, Hyperlipidemia, Osteoarthritis (OA), Thyroid Disorder, Vascular Disorder and [facility] resident patient has been sent to the hospital concern for altered mental status concern for UTI prompting this consultation. On today's evaluation that is 04/01/2025, patient did have a temperature of 98 F this morning and denies having any chills, patient is on room air and breathing comfortably no chest pain or cough, the patient did not have any nausea vomiting abdominal pain or any diarrhea. Patient white count is 2.46, creatinine 0.9 urine culture from 723 is growing gram-negative bacilli Objective - Vital Signs Vital signs: Vital Signs Temp 98.1 F 04/01/25 12:05 Pulse 45 L 04/01/25 12:05 Resp 16 04/01/25 12:05 BP 125/80 04/01/25 12:05 Pulse Ox 94 L 04/01/25 12:05 FiO2 Intake & Output 03/31/25 04/01/25 04/01/25 18:59 06:59 18:59 Intake Total 240 1800 Output Total 800 1000 950 Balance -560 -1000 850 Weight 113.398 kg Intake: Oral 240 1800 Output: Urine 800 1000 950 Other: Voiding Method External Catheter Diaper Diaper External Catheter External Catheter - Exam GENERAL DESCRIPTION: An elderly female lying in bed in no distress RESPIRATORY SYSTEM: Unlabored breathing , decreased breath sounds at bases HEART: S1 S2 regular rate and rhythm , ABDOMEN: Soft , no tenderness EXTREMITIES: Diffuse swelling to bilateral lower extremity no redness - Labs CBC & Chem 7: 04/01/25 06:35 04/01/25 06:35 Labs: Abnormal Lab Results - Last 24 Hours (Table) 04/01/25 04/01/25 Range/Units 06:35 06:35 WBC 2.46 L (4.50-10.00) X 10*3/uL RBC 2.94 L (4.10-5.20) X 10*6/uL Hgb 9.0 L (12.0-15.0) g/dL Hct 28.8 L (37.2-46.3) % MCV 98.0 H (80.0-97.0) FL MCHC 31.3 L (32.0-37.0) g/dL RDW 16.7 H (11.5-14.5) % Plt Count 99 L (140-440) X 10*3/uL Neutrophils # 1.05 L (1.80-7.70) X 10*3/uL Chloride 110 H (96-109) mmol/L BUN 27.1 H (9.0-27.0) mg/dL BUN/Creatinine Ratio 30.11 H (12.00-20.00) Ratio Assessment and Plan (1) Allergy to multiple antibiotics Current Visit: Yes Status: Acute Code(s): Z88.1 - ALLERGY STATUS TO OTHER ANTIBIOTIC AGENTS SNOMED Code(s): 925881165 (2) Altered mental status Current Visit: Yes Status: Acute Code(s): R41.82 - ALTERED MENTAL STATUS, UNSPECIFIED SNOMED Code(s): 237068110 (3) Urinary tract infection Current Visit: Yes Status: Acute Code(s): N39.0 - URINARY TRACT INFECTION, SITE NOT SPECIFIED SNOMED Code(s): 02672542 Plan: 1patient presented to hospital with mental status changes in this patient did have positive UA mild suprapubic tenderness concern for possible symptomatic UTI likely from enteric gram-negative pathogen with the recent culture being done in the outpatient setting on 03/29/2025 is growing gram-negative to be the likely pathogen rather than VRE. 2patient did have some improvement in mentation will be treated with Rocephin while waiting for the culture to finalize. Daily that Dictation was produced using [employer] software. please excuse any grammatical, word or spelling errors.
--- NOTE | 2025-04-01 19:59 | PN ---
PROGRESS NOTE DATE OF SERVICE: 04/01/2025 SUBJECTIVE: This is an 79-year-old woman, who was admitted with change in mental status. The patient is medically being treated for UTI. Antibiotics are given. Currently, the sensorium is slightly improved. The patient had pancytopenia. PAST MEDICAL HISTORY: Reviewed. REVIEW OF SYSTEMS: Could not be taken as the patient is confused. MEDICATIONS: Reviewed. PHYSICAL EXAMINATION: VITAL SIGNS: Pulse 45, blood pressure 130/80, respirations 16. HEENT: Conjunctivae normal. NECK: No JVD. CARDIOVASCULAR: S1, S2. RESPIRATIONS: Few scattered rhonchi. ABDOMEN: Soft. NERVOUS SYSTEM: Diffusely weak. LABORATORY DATA: Reviewed. ASSESSMENT: 1. Change in mental status, acute metabolic encephalopathy. 2. Possible acute urinary tract infection, present on admission. 3. Dehydration. 4. Atrial fibrillation. 5. Dementia. 6. Hyperlipidemia. 7. Multiple complex medical issues. RECOMMENDATIONS: Recommend to repeat labs and follow the cultures. Prognosis is guarded because of multiple complex medical issues. I would also recommend PT/OT evaluation. Further recommendations to follow. MMODL / IJN: [id number] / MTDLance
[2025-04-02 09:45] LABS: Basophils # (A) 0 X 10*3/uL (0.00-0.10); Basophils % (A) 0 %; Eosinophils # (A) 0.06 X 10*3/uL (0.04-0.35); Eosinophils % (A) 1.2 %; HCT 30.4 % (37.2-46.3); HGB 9.6 g/dL (12.0-15.0); Immature Grans, Automated 0.20 %; Lymphocytes # (A) 1.19 X 10*3/uL (0.90-5.00); Lymphocytes % (A) 24.4 %; MCH 29.8 pg (27.0-32.0); MCHC 31.6 g/dL (32.0-37.0); MCV 94.4 FL (80.0-97.0); Monocytes # (A) 0.29 X 10*3/uL (0.20-1.00); Monocytes % (A) 5.9 %; NRBC Per 100 WBC 0 X 10*3/uL (0.00-0.01); Neutrophils # (A) 3.33 X 10*3/uL (1.80-7.70); Neutrophils % (A) 68.3 %; Platelet Count 100 X 10*3/uL (140-440); RBC 3.22 X 10*6/uL (4.10-5.20); RDW 16.3 % (11.5-14.5); WBC 4.88 X 10*3/uL (4.50-10.00)
[2025-04-02 09:58] LABS: Anion Gap 8.80 mmol/L (4.00-12.00); BUN/Creat Ratio 30.00 Ratio (12.00-20.00); Blood Urea Nitrogen 24.0 mg/dL (9.0-27.0); Calcium 8.9 mg/dL (8.7-10.3); Carbon Dioxide 24.2 mmol/L (21.6-31.8); Chloride 108 mmol/L (96-109); Glucose 88 mg/dL (70-110); Potassium 4.9 mmol/L (3.5-5.5); Sodium 141 mmol/L (135-145)
--- NOTE | 2025-04-02 14:44 | PN ---
PROGRESS NOTE DATE OF SERVICE: 04/02/2025 SUBJECTIVE: This is an 79-year-old woman was admitted with change in mental status and also UTI. No chest pain. No palpitation. PHYSICAL EXAMINATION: GENERAL: On exam, confused. VITAL SIGNS: Pulse 53, blood pressure 130/62, and respirations 16. CHEST: Clear to auscultation. CARDIOVASCULAR: S1 and S2. ABDOMEN: Soft. NERVOUS SYSTEM: Diffusely weak. LABORATORY DATA: Hemoglobin 9.6. ASSESSMENT: 1. Change in mental status, acute metabolic encephalopathy. 2. Possible acute urinary tract infection present on admission. 3. Dehydration. 4. Atrial fibrillation. 5. Dementia. 6. Hyperlipidemia. 7. Multiple complex medical issues. 8. Full code. RECOMMENDATION: Recommend to continue current management and continue symptomatic treatment. Continue with the antibiotics. Prognosis guarded. Further recommendations to follow. MMODL / IJN: [id number] /
--- NOTE | 2025-04-02 15:56 | P.PN ---
Subjective Progress Note Date: 04/02/25 Principal diagnosis: Reason for follow-up visit urinary tract infection Patient is a 79-year-old female with a past medical history significant for Atrial Fibrillation, Dementia, Eye Disorder, GERD/Reflux, Hyperlipidemia, Osteoarthritis (OA), Thyroid Disorder, Vascular Disorder and [facility] resident patient has been sent to the hospital concern for altered mental status concern for UTI prompting this consultation. On today's evaluation that is 04/02/2025, Patient is afebrile patient is currently on room air and denies having any shortness of breath, the patient denies any chest pain or cough, the patient denies any nausea vomiting did not have any abdominal pain and no diarrhea. Patient white count is 4.88, creatinine 0.8 urine culture currently pending. Objective - Vital Signs Vital signs: Vital Signs Temp 97.6 F 04/02/25 14:00 Pulse 53 L 04/02/25 14:00 Resp 16 04/02/25 14:00 BP 138/62 04/02/25 14:00 Pulse Ox 94 L 04/02/25 14:00 FiO2 Intake & Output 04/01/25 04/02/25 04/02/25 18:59 06:59 18:59 Intake Total 2700 450 Output Total 1800 1400 500 Balance 900 -1400 -50 Intake: Intake, IV Titration 900 Amount Sodium Chloride 0.9% 1, 900 000 ml @ 75 mls/hr IV . [id number] [facility] Rx#:[id number] Oral 1800 450 Output: Urine 1800 1400 500 Other: Voiding Method Diaper Diaper Diaper External Catheter External Catheter External Catheter - Exam GENERAL DESCRIPTION: An elderly female lying in bed in no distress RESPIRATORY SYSTEM: Unlabored breathing , decreased breath sounds at bases HEART: S1 S2 regular rate and rhythm , ABDOMEN: Soft , no tenderness EXTREMITIES: Diffuse swelling to bilateral lower extremity no redness - Labs CBC & Chem 7: 04/02/25 04:25 04/02/25 04:25 Labs: Abnormal Lab Results - Last 24 Hours (Table) 04/02/25 04/02/25 Range/Units 04:25 04:25 RBC 3.22 L (4.10-5.20) X 10*6/uL Hgb 9.6 L (12.0-15.0) g/dL Hct 30.4 L (37.2-46.3) % MCHC 31.6 L (32.0-37.0) g/dL RDW 16.3 H (11.5-14.5) % Plt Count 100 L (140-440) X 10*3/uL BUN/Creatinine Ratio 30.00 H (12.00-20.00) Ratio Microbiology - Last 24 Hours (Table) 04/01/25 11:00 Urine Culture - Preliminary Urine,Clean Catch Assessment and Plan (1) Allergy to multiple antibiotics Current Visit: Yes Status: Acute Code(s): Z88.1 - ALLERGY STATUS TO OTHER ANTIBIOTIC AGENTS SNOMED Code(s): 855586893 (2) Altered mental status Current Visit: Yes Status: Acute Code(s): R41.82 - ALTERED MENTAL STATUS, UNSPECIFIED SNOMED Code(s): 747538327 (3) Urinary tract infection Current Visit: Yes Status: Acute Code(s): N39.0 - URINARY TRACT INFECTION, SITE NOT SPECIFIED SNOMED Code(s): 74292233 Plan: 1patient presented to hospital with mental status changes in this patient did have positive UA mild suprapubic tenderness concern for possible symptomatic UTI likely from enteric gram-negative pathogen with the recent culture being done in the outpatient setting on 03/29/2025 is growing Proteus sensitive to ceftriaxone 2patient did have some improvement in mentation to continue with Rocephin while inpatient finishing therapy with oral antibiotics Dictation was produced using [employer] dictation software. please excuse any grammatical, word or spelling errors.
--- NOTE | 2025-04-03 13:57 | P.DS ---
Providers Date of admission: 03/31/25 01:21 Expected date of discharge: 04/03/25 Attending physician: Kelvin Green Consults: 03/31/25 13:29 Consult Physician Routine Consulting Provider: Kenton Longoria Consult Reason/Comments: uti. vre? Do you want consulting provider notified?: Yes Primary care physician: Maye Scruggs Hospital Course: Final diagnosis Change in mental status, acute metabolic encephalopathy secondary to acute urinary tract infection, present on admission Acute urinary tract infection, present on admission with cultures finalized and showing Enterococcus VRE Dehydration on admission, improving History of atrial fibrillation, currently rate controlled History of dementia Hyperlipidemia Morbid obesity with a BMI of 44.3 History of GERD Frequent recurrent urinary tract infections GI prophylaxis DVT prophylaxis Full code Discharge disposition Patient is being discharged in a stable condition with guarded prognosis to [facility] [place]. Patient will follow-up with Dr. Nirav Green in the outpatient setting upon discharge. Patient is to continue with midline and IV daptomycin for 1 week per ID recommendations. Total time taken is greater than 35 minutes. Hospital course This is a 79-year-old female who was recently admitted with change in mental status also urinary tract infection. Urine cultures finalized with Enterococcus VRE and being followed by infectious disease. Patient will receive a midline and continue on 1 week of daptomycin. Mentation is improved and at baseline. Patient continues with weakness and will be returning to [facility]. Currently no reports of chest pain, shortness of breath, or palpitations. Patient is afebrile. No reports of nausea or vomiting and patient is tolerating diet. Patient will be [facility] today. Guarded prognosis and high risk for readmissions given significant comorbidities. Physical exam: Gen: This is a 79-year-old female who is awake, alert and oriented x 2, baseline, well-developed, elderly appearing, morbidly obese HEENT: Head is atraumatic, normocephalic. Pupils equal, round. Sclerae is anicteric. NECK: Supple. No JVD. No lymphadenopathy. No thyromegaly. LUNGS: Diminished breath sounds bilaterally otherwise clear to auscultation. No wheezes or rhonchi. No intercostal retractions. HEART: S1, S2 are muffled ABDOMEN: Soft. Obese. Bowel sounds are present. No masses. No tenderness. EXTREMITIES: No pedal edema. No calf tenderness. NEUROLOGICAL: Patient is awake, alert and oriented x2-3. Cranial nerves 2 through 12 are grossly intact. Diffusely weak Please refer to medication reconciliation sheet for a list of medications. The impression and plan of care has been dictated by Negrita Hollis, Nurse Practitioner as directed. Dr. Peter MD I have performed a history and examination and MDM of this patient, discussed the same with the dictator, and agree with the dictator's assessment and plan as written ,documented as a scribe. Based on total visit time, I have performed more than 50% of the visit. Patient Condition at Discharge: Fair Plan - Discharge Summary New Discharge Prescriptions: New DAPTOmycin [Cubicin] 300 mg IVPB Q24H 7 Days #7 each Acetaminophen Tab [Tylenol] 650 mg PO Q6HR PRN tab PRN Reason: Mild Pain Or Fever > 100.5 Continue Furosemide [Lasix] 40 mg PO DAILY Omeprazole 20 mg PO DAILY@0600 Latanoprost Ophth [Xalatan 0.005%] 1 drop BOTH EYES HS Ferrous Sulfate [Iron (65 MG Elemental)] 325 mg PO DAILY Metoprolol Succinate (ER) [Toprol XL] 25 mg PO DAILY Albuterol Inhaler [Ventolin Hfa Inhaler] 1 - 2 puff INHALATION RT-Q4H PRN PRN Reason: Shortness Of Breath bisacodyL [Dulcolax] 10 mg RECTAL DAILY PRN PRN Reason: Constipation Levothyroxine Sodium [Synthroid] 25 mcg PO DAILY@0600 Escitalopram [Lexapro] 10 mg PO DAILY Atorvastatin [Lipitor] 40 mg PO HS amLODIPine [Norvasc] 10 mg PO DAILY guaiFENesin SYRUP 100MG/5ML [Robitussin] 200 mg PO Q4H PRN PRN Reason: Cough Magnesium Hydroxide [Milk of Magnesia] 2,400 mg PO DAILY PRN PRN Reason: Constipation Na Phos,M-B/Na Phos,Di-Ba [Fleet Adult] 133 ml RECTAL DAILY PRN PRN Reason: Constipation Ipratropium-Albuterol Nebulize [Duoneb 0.5 mg-3 mg/3 ml Soln] 3 ml INHALATION RT-Q6H PRN PRN Reason: Shortness Of Breath Apixaban [Eliquis] 5 mg PO BID@0800,1700 Discontinued Ciprofloxacin HCl [Cipro] 250 mg PO BID@0800,1700 Discharge Medication List Furosemide [Lasix] 40 mg PO DAILY 07/08/23 [History] Omeprazole 20 mg PO DAILY@0600 08/30/23 [History] Latanoprost Ophth [Xalatan 0.005%] 1 drop BOTH EYES HS 12/18/23 [History] Ferrous Sulfate [Iron (65 MG Elemental)] 325 mg PO DAILY 02/18/24 [History] Levothyroxine Sodium [Synthroid] 25 mcg PO DAILY@0600 11/01/24 [History] Atorvastatin [Lipitor] 40 mg PO HS 01/04/25 [History] Escitalopram [Lexapro] 10 mg PO DAILY 01/04/25 [History] Metoprolol Succinate (ER) [Toprol XL] 25 mg PO DAILY 01/04/25 [History] Albuterol Inhaler [Ventolin Hfa Inhaler] 1 - 2 puff INHALATION RT-Q4H PRN 01/29/25 [History] amLODIPine [Norvasc] 10 mg PO DAILY 01/29/25 [History] Apixaban [Eliquis] 5 mg PO BID@0800,1700 03/31/25 [History] Ipratropium-Albuterol Nebulize [Duoneb 0.5 mg-3 mg/3 ml Soln] 3 ml INHALATION RT-Q6H PRN 03/31/25 [History] Magnesium Hydroxide [Milk of Magnesia] 2,400 mg PO DAILY PRN 03/31/25 [History] Na Phos,M-B/Na Phos,Di-Ba [Fleet Adult] 133 ml RECTAL DAILY PRN 03/31/25 [History] bisacodyL [Dulcolax] 10 mg RECTAL DAILY PRN 03/31/25 [History] guaiFENesin SYRUP 100MG/5ML [Robitussin] 200 mg PO Q4H PRN 03/31/25 [History] Acetaminophen Tab [Tylenol] 650 mg PO Q6HR PRN tab 04/03/25 [Rx] DAPTOmycin [Cubicin] 300 mg IVPB Q24H 7 Days #7 each 04/03/25 [Rx] Follow up Appointment(s)/Referral(s): Maye Scruggs MD [Primary Care Provider] - 1-2 days Activity/Diet/Wound Care/Special Instructions: Patient will be going to [facility] Activity as tolerated Patient will receive a midline and continue on 1 week of daptomycin per ID recom mendations Patient continue on heart healthy diet Discharge Disposition: TRANSFER TO SNF/ECF
[2025-04-03 14:17] VITALS: BP 116/73; PULSE 63; RESP 18; TEMP 97.4
--- NOTE | 2025-04-04 14:47 | P.PN ---
Subjective Progress Note Date: 04/03/25 Principal diagnosis: Reason for follow-up visit urinary tract infection Patient is a 79-year-old female with a past medical history significant for Atrial Fibrillation, Dementia, Eye Disorder, GERD/Reflux, Hyperlipidemia, Osteoarthritis (OA), Thyroid Disorder, Vascular Disorder and [facility] resident patient has been sent to the hospital concern for altered mental status concern for UTI prompting this consultation. On today's evaluation that is 04/03/2025, patient has been afebrile, patient is breathing comfortably and is currently on room air, patient denies having any chest pain and cough, patient denies nausea vomiting or diarrhea and no abdominal pain. No new lab has been obtained today urine with a VRE Objective - Vital Signs Vital signs: Vital Signs Temp 97.6 F 04/03/25 06:48 Pulse 72 04/03/25 06:48 Resp 20 04/03/25 06:48 BP 161/75 04/03/25 06:48 Pulse Ox 92 L 04/03/25 06:48 FiO2 Intake & Output 04/02/25 04/03/25 04/03/25 18:59 06:59 18:59 Intake Total 1350 1160 Output Total 1350 1200 800 Balance 0 -40 -800 Intake: Intake, IV Titration 900 Amount Sodium Chloride 0.9% 1, 900 000 ml @ 75 mls/hr IV . [id number] [facility] Rx#:[id number] Oral 450 1160 Output: Urine 1350 1200 800 Stool 0 Other: Voiding Method Diaper Diaper External Catheter External Catheter # Voids 1 # Bowel Movements 1 - Exam GENERAL DESCRIPTION: An elderly female lying in bed in no distress RESPIRATORY SYSTEM: Unlabored breathing , decreased breath sounds at bases HEART: S1 S2 regular rate and rhythm , ABDOMEN: Soft , no tenderness EXTREMITIES: Diffuse swelling to bilateral lower extremity no redness - Labs CBC & Chem 7: 04/02/25 04:25 04/02/25 04:25 Labs: Microbiology - Last 24 Hours (Table) 04/01/25 11:00 Urine Culture - Final Urine,Clean Catch Enterococcus faecalis VRE Assessment and Plan (1) Allergy to multiple antibiotics Status: Acute Code(s): Z88.1 - ALLERGY STATUS TO OTHER ANTIBIOTIC AGENTS SNOMED Code(s): 617632983 (2) Altered mental status Status: Acute Code(s): R41.82 - ALTERED MENTAL STATUS, UNSPECIFIED SNOMED Code(s): 130074754 (3) Urinary tract infection Status: Acute Code(s): N39.0 - URINARY TRACT INFECTION, SITE NOT SPECIFIED SNOMED Code(s): 49138942 Plan: 1patient presented to hospital with mental status changes in this patient did have positive UA mild suprapubic tenderness concern for possible symptomatic UTI likely from enteric gram-negative pathogen with the recent culture being done in the outpatient setting on 03/29/2025 is growing Proteus sensitive to ceftriaxone 2patient urine has been finalized with VRE antibiotic has been switched over to daptomycin Rocephin has been discontinued she will get a midline and IV course of IV daptomycin on discharge discussed with [facility] for admitting team Dictation was produced using [employer] dictation software. please excuse any grammatical, word or spelling errors. Time with Patient: Less than 30
== END 2025-04-03 17:29 | DRG 689 ==
LOC: EC 22:07 → 5NMEDONC 03-31 01:21
PROVIDERS: ADMIT Hospitalist; ATTEND Hospitalist
DX: N39.0 Urinary tract infection, site not specified (principal); G93.41 Metabolic encephalopathy; D61.818 Other pancytopenia; B95.2 Enterococcus as the cause of diseases classified elsewhere; E86.0 Dehydration; I48.91 Unspecified atrial fibrillation; E66.01 Morbid (severe) obesity due to excess calories; F03.90 Unspecified dementia, unspecified severity, without behavioral disturbance, psychotic disturbance, mood disturbance, and anxiety; Z68.41 Body mass index [BMI] 40.0-44.9, adult; K21.9 Gastro-esophageal reflux disease without esophagitis; E78.5 Hyperlipidemia, unspecified; Z79.01 Long term (current) use of anticoagulants; Z79.890 Hormone replacement therapy; Z79.899 Other long term (current) drug therapy; Z87.440 Personal history of urinary (tract) infections; Z88.1 Allergy status to other antibiotic agents; Z96.1 Presence of intraocular lens; Z88.8 Allergy status to other drugs, medicaments and biological substances; Z96.643 Presence of artificial hip joint, bilateral
CPT/HCPCS: 36415; 70450; 80048; 80053; 81001; 83735; 85025; 87077; 87086; 87186; 93005; 96361; 96375; 99285